=== PATIENT | female | born 1990 | race Caucasian/White ===

== ENCOUNTER 2017-06-17 16:44 | Emergency (ER) | payer MEDICAID, SELFPAY ==
[2017-06-17 16:46] VITALS: BP 136/72; PULSE 110; RESP 18; TEMP 36.4; O2SAT 97; BMI 45.5
[2017-06-17] MEDS: Dicyclomine 20 MG/2 ML Vial IM (17:40)
[2017-06-17] MEDS: Ondansetron 4 MG/2 ML Vial IV ×2 (17:40→20:08)
[2017-06-17 17:52] LABS: Bacteria 0 SEEN /hpf (None Seen); Mucous, Urine 0 SEEN /hpf (<or=2+); Red Blood Cells-Urine 0 SEEN /hpf (0-5)
[2017-06-17 18:01] LABS: Color, Urine Yellow (Yellow); Glucose, Dipstick Normal (Normal); Ketone-Dipstick Negative (Negative); Leukocyte Esterase-Dipstick Negative /ul (Negative); Nitrite-Dipstick Negative (Negative); Occult Blood-Urine 25 /ul (Negative); Protein-Dipstick 15 mg/dl (Negative); Specific Gravity, Urine 1.025 (1.002-1.030); Urine Bilirubin Dipstick Negative (Negative); Urine Clarity Clear (Clear); Urine Urobilinogen Normal (Normal)
[2017-06-17 18:05] LABS: AST(SGOT) 47 U/L (15-37); Alanine Aminotransfer ALT/SGPT 34 U/L (12-78); Albumin, Serum 3.4 g/dL (3.4-5.0); Alkaline Phosphatase 99 U/L (45-117); Anion Gap 9 (5-15); BUN 9 mg/dL (7-18); BUN/Creat Ratio 14.6 RATIO (10-20); Bilirubin, Direct 0.18 mg/dL (0.00-0.30); Calcium,Total 8.3 mg/dL (8.5-10.1); Chloride 106 mmol/L (98-107); Creatinine, Serum 0.62 mg/dL (0.55-1.02); EST Glomerular Filtration Rate 125 mL/min (>60); Est Glom Filt Rate - Afr Amer 152 mL/min (>60); Estimated Creatinine Clearance 134.89 ml/min; Globulin 3.4 g/dL (2.2-4.2); Glucose 159 mg/dL (70-110); Lipase 87 U/L (73-393); Potassium 4.4 mmol/L (3.5-5.1); Protein, Total 6.8 g/dL (6.4-8.2); Sodium Level 137 mmol/L (136-145)
[2017-06-17 18:11] LABS: Squamous Epithelial Cells - UA 0-5 SEEN /hpf (5-10); White Blood Cells 0-5 SEEN /hpf (0-5)
[2017-06-17 18:35] LABS: Pregnancy, Serum, hCG Quali. NEGATIVE Negative (0-9 Nonpreg)
[2017-06-17 18:49] LABS: Absolute Lymphocyte Count 2.03 X10^3/ul (0.83-4.51); Absolute Neutrophil Count 4.7 X10^3/uL (2.0-7.7); Basophil# 0.01 X10^3/uL; Basophil% 0.1 % (0-1); Eosinophil# 0.18 X10^3/uL; Eosinophils% 2.4 % (0-5); Hematocrit 38.1 % (37-47); Hemoglobin 13.2 g/dl (12.0-15.0); Lymphocyte # 2.03 X10^3/ul (4.0); Lymphocyte % 26.8 % (19-41); Mean Corp Hgb Conc 34.6 g/gl (32-36); Mean Corpuscular Hgb 31.9 pg (27.0-32.0); Monocyte# 0.67 X10^3/uL; Monocyte% 8.9 % (0-10); Neutrophil # 4.65 X10^3/uL (2.7-7.7); Neutrophil % 61.4 % (47-70); POSITIVE COUNT NO; POSITIVE DIFFERENTIAL NO; POSITIVE MORPHOLOGY NO; Platelet Count 283 K/mm3 (150-450); RBC Distribution Width CV 13.3 % (11.6-14.6); RBC Distribution Width SD 44.5 fl (35.1-43.9); Red Blood Count 4.14 M/mm3 (4.2-5.4); White Blood Count 7.6 K/mm3 (4.4-11.0)
--- NOTE | 2017-06-17 19:55 | ED.DCSUM_ITS ---
- ER Visit Summary Date of Service: 06/17/17 Chief Complaint: Abdominal pain, nausea, vomiting History of Present Illness: The patient is a 27 F who reports waking at 1 AM this morning with lower abdominal cramping along with nausea, vomiting, and diarrhea. She has not had a fever. Patient denies any recent antibiotic use and denies any ill contacts. Past surgical history significant for cholecystectomy and prior . Physical Examination: Vital signs are unremarkable. Patient's lying in bed no acute distress. She is nontoxic appearing. Head and neck examination is normal. Heart is regular rate and rhythm. Palpable pulses are noted throughout. Lungs are clear with good air movement throughout. Abdomen is soft with tenderness in the epigastric region and across the lower abdomen. Hypoactive bowel sounds are noted. There is no guarding or rebound. Extremity examination is unremarkable with full range of motion. Neurologic examination reveals no focal deficits. Test Results: BC and chemistry studies are significant only for glucose of 159. LFTs revealed total bili 1.50 and AST of 47, otherwise values normal. Urinalysis shows no ketones, no sign of infection. Patency test is negative. Emergency Department Course and Treatment: Patient is given morphine, Zofran, Bentyl, and IV fluids. On repeat evaluation she states her symptoms were significant improved, but are starting to return. Patient be given 1 additional round of medication and then discharged with Bentyl and Zofran. I believe her symptoms are all viral in nature. If her symptoms worsen encourage her to return for repeat evaluation. Treatment Plan: [] Disposition: Discharge Impression: Viral gastroenteritis This note was generated with [employer] dictation software. It may contain incorrect words, spelling, and punctuation that were not noted in review of the chart prior to signing ED Disposition - Plan for ED Patient: Disposition: Home or Assisted Living Chief Complaint: Nausea/Vomiting Instructions: ED Gastroenteritis Viral Prescriptions: Ondansetron [Zofran Odt] 4 mg PO Q8H PRN PRN #10 tablet PRN Reason: Nausea Dicyclomine HCl [Bentyl] 20 mg PO TIDAC #20 capsule Referrals: Katya Sutherland MD [Primary Care Provider] - 1 Week if not improving
[2017-06-17 20:14] VITALS: BP 113/80; PULSE 72; RESP 16; O2SAT 100
== END 2017-06-17 20:15 | disposition home or self-care (01) ==
PROVIDERS: Emergency Provider Emergency Medicine; Family Provider Internal Medicine; PCP Internal Medicine
DX: A08.4 Viral intestinal infection, unspecified (principal); E66.9 Obesity, unspecified; Z87.19 Personal history of other diseases of the digestive system; Z90.49 Acquired absence of other specified parts of digestive tract
CPT/HCPCS: 80048; 80076; 81001; 83690; 84703; 85025; 96361; 96372; 96374; 96375; 96376; 99285; J7040; J7050; A4216; J2405

== ENCOUNTER 2017-07-24 09:29 | Emergency (ER) | payer MEDICAID, SELFPAY ==
[2017-07-24 09:30] VITALS: BP 151/85; PULSE 105; RESP 24; TEMP 36.2; O2SAT 94; BMI 45.7
--- NOTE | 2017-07-24 09:39 | CT_ITS ---
STUDY: CT BRAIN WITHOUT CONTRAST REASON FOR EXAM: Female, 27 years old. Headaches. RADIATION DOSAGE (If Supplied By Facility): CTDIvol = ( 60.81 ) mGy, DLP = ( 1044.28 ) mGycm TECHNIQUE: Transaxial CT imaging of the brain was performed without administration of intravenous contrast material. Individualized dose optimization techniques were used for this CT. COMPARISON: 08/28/11 FINDINGS: Normal soft tissue structures. Normal calvarium. Normal size ventricles and extra-axial spaces for the patient's age. Normal white matter tracts of the cerebral hemispheres. Normal basal ganglia and thalami. Normal brainstem. Normal cerebellum. There is no intracranial hemorrhage. There are no findings of an acute ischemic infarction. Normal visualized paranasal sinuses. CT/Brain/Head without Contrast IMPRESSION: Normal unenhanced CT scan of the brain. Electronically Signed: Antonio Syed MD at 11:29 EST , Service support ,
--- NOTE | 2017-07-24 09:45 | ED.DCSUM_ITS ---
- ER Visit Summary Date of Service: 07/24/17 Chief Complaint: Headache History of Present Illness: The patient is a 27 F reports mild generalized headache yesterday with some nausea. Progressively worsened throughout the day. Today her right face feels swollen and painful. She denies any recent head injury. There is no recent URI symptoms. She does report nausea, vomiting , and light sensitivity. Patient denies history of migraines. Physical Examination: Vital signs are grossly unremarkable. Patient is lying in a darkened room. She is in no acute distress and appears nontoxic. Head and neck examination reveals mild right upper eyelid edema. She has no meningismus. Heart is regular rate and rhythm. Lung sounds are clear. Abdomen is soft nontender. Neuro exam is significant only for right face feeling painful with light palpation. Test Results: CT head is normal. CBC and chemistry studies are significant only for glucose of 333. test is negative. Emergency Department Course and Treatment: Patient was treated Toradol, Compazine, Benadryl, and IV fluids. On repeat evaluation headache is resolved. At this time I am unsure of the etiology of her right eyelid swelling. Eye itself is not injected. She has no sign of cellulitis. There is no sign of sinus infection or dental infection. She will continue to closely monitor the symptoms. Treatment Plan: [] Disposition: Discharge Impression: Migraine, improved This note was generated with [employer] dictation software. It may contain incorrect words, spelling, and punctuation that were not noted in review of the chart prior to signing ED Disposition - Plan for ED Patient: Disposition: Home or Assisted Living Chief Complaint: Headache Instructions: ED Headache Migraine Referrals: Katya Sutherland MD [Primary Care Provider] - 3-5 Days if not improving
[2017-07-24] MEDS: 0.9% Normal Saline 1,000 ML 999 ML IV (10:05)
[2017-07-24] MEDS: Ketorolac 30 MG/ML Syringe IV (10:05)
[2017-07-24] MEDS: DiphenhydrAMINE 50 MG/ML Syringe 25 MG IV (10:05)
[2017-07-24] MEDS: proCHLORPERazine 10 MG/2 ML Vial IV (10:05)
[2017-07-24 10:31] LABS: Absolute Neutrophil Count 3.2 X10^3/uL (2.0-7.7); Basophil# 0.02 X10^3/uL; Basophil% 0.3 % (0-1); Eosinophil# 0.08 X10^3/uL; Eosinophils% 1.3 % (0-5); Hemoglobin 13.8 g/dl (12.0-15.0); Lymphocyte % 39.4 % (19-41); Mean Corp Hgb Conc 35.4 g/gl (32-36); Mean Corpuscular Volume 90.5 fL (81-99); Mean Platelet Vol. 9.3 fl (6.2-12.0); Monocyte# 0.55 X10^3/uL; Monocyte% 8.7 % (0-10); Neutrophil # 3.18 X10^3/uL (2.7-7.7); POSITIVE COUNT NO; POSITIVE DIFFERENTIAL NO; POSITIVE MORPHOLOGY NO; Platelet Count 251 K/mm3 (150-450); RBC Distribution Width CV 13.2 % (11.6-14.6); Red Blood Count 4.31 M/mm3 (4.2-5.4); White Blood Count 6.4 K/mm3 (4.4-11.0)
[2017-07-24 10:38] LABS: Anion Gap 11 (5-15); BUN 10 mg/dL (7-18); BUN/Creat Ratio 16.4 RATIO (10-20); Calcium,Total 8.9 mg/dL (8.5-10.1); Chloride 101 mmol/L (98-107); Creatinine, Serum 0.61 mg/dL (0.55-1.02); EST Glomerular Filtration Rate 127 mL/min (>60); Est Glom Filt Rate - Afr Amer 154 mL/min (>60); Glucose 333 mg/dL (74-106); Potassium 3.8 mmol/L (3.5-5.1); Sodium Level 137 mmol/L (136-145)
[2017-07-24 10:45] LABS: Pregnancy, Serum, hCG Quali. NEGATIVE Negative (0-9 Nonpreg)
--- NOTE | 2017-07-24 12:13 | ED.DEP ---
ED Disposition - Plan for ED Patient: Disposition: Home or Assisted Living Chief Complaint: Headache Instructions: ED Headache Migraine Referrals: Katya Sutherland MD [Primary Care Provider] - 3-5 Days if not improving
[2017-07-24 12:32] VITALS: BP 142/70; PULSE 80; RESP 14; O2SAT 99
== END 2017-07-24 12:34 | disposition home or self-care (01) ==
PROVIDERS: Emergency Provider Emergency Medicine; Family Provider Internal Medicine; PCP Internal Medicine
DX: G43.909 Migraine, unspecified, not intractable, without status migrainosus (principal); H02.841 Edema of right upper eyelid; E66.9 Obesity, unspecified; E11.9 Type 2 diabetes mellitus without complications; Z90.49 Acquired absence of other specified parts of digestive tract; Z79.84 Long term (current) use of oral hypoglycemic drugs
CPT/HCPCS: 36415; 70450; 80048; 84703; 85025; 96361; 96374; 96375; 99283; J7030; A4216

== ENCOUNTER 2017-08-01 13:59 | Emergency (ER) | payer MEDICAID, SELFPAY ==
[2017-08-01 14:00] VITALS: BP 145/80; PULSE 127; RESP 18; TEMP 36.7; O2SAT 97; BMI 46.6
[2017-08-01] MEDS: 0.9% Normal Saline 1,000 ML 1000 ML IV (15:10)
--- NOTE | 2017-08-01 15:14 | RAD_ITS ---
STUDY: X-RAY CHEST REASON FOR EXAM: Female, 27 years old. Cough. TECHNIQUE: PA and lateral views of the chest. COMPARISON: Chest, June 26, 2016. FINDINGS: The lungs are clear and expanded. There is no demonstrated pleural abnormality. Normal size heart. Normal mediastinum and sarath. Normal visualized pulmonary arteries. Normal visualized aortic arch and descending thoracic aorta. Normal visualized thoracic spine. Normal visualized ribs, clavicles, and shoulders. There is no demonstrated abnormality of the visualized soft tissue structures of the upper abdomen. RAD/Chest PA and Lateral IMPRESSION: No acute cardiopulmonary disease or interval change. Electronically Signed: Claude Gómez DO at 15:46 EST Tel [phone], Service support ,
[2017-08-01 15:24] LABS: Absolute Lymphocyte Count 1.56 X10^3/ul (0.83-4.51); Absolute Neutrophil Count 5.4 X10^3/uL (2.0-7.7); Basophil# 0.01 X10^3/uL; Basophil% 0.1 % (0-1); Eosinophil# 0.09 X10^3/uL; Eosinophils% 1.1 % (0-5); Hematocrit 41.8 % (37-47); Hemoglobin 14.8 g/dl (12.0-15.0); Lymphocyte # 1.56 X10^3/ul (4.0); Lymphocyte % 19.9 % (19-41); Mean Corp Hgb Conc 35.4 g/gl (32-36); Mean Corpuscular Hgb 31.8 pg (27.0-32.0); Mean Corpuscular Volume 89.7 fL (81-99); Mean Platelet Vol. 9.6 fl (6.2-12.0); Monocyte# 0.71 X10^3/uL; Monocyte% 9.1 % (0-10); Neutrophil # 5.44 X10^3/uL (2.7-7.7); Neutrophil % 69.4 % (47-70); POSITIVE COUNT NO; POSITIVE DIFFERENTIAL NO; POSITIVE MORPHOLOGY NO; Platelet Count 236 K/mm3 (150-450); RBC Distribution Width CV 13.5 % (11.6-14.6); RBC Distribution Width SD 43.4 fl (35.1-43.9); Red Blood Count 4.66 M/mm3 (4.2-5.4); White Blood Count 7.8 K/mm3 (4.4-11.0)
[2017-08-01 15:43] LABS: AST(SGOT) 13 U/L (15-37); Alanine Aminotransfer ALT/SGPT 22 U/L (13-56); Albumin, Serum 3.6 g/dL (3.2-5.0); Alkaline Phosphatase 102 U/L (45-117); Anion Gap 12 (5-15); BUN 10 mg/dL (7-18); BUN/Creat Ratio 19.8 RATIO (10-20); Calcium,Total 8.4 mg/dL (8.5-10.1); Chloride 103 mmol/L (98-107); EST Glomerular Filtration Rate 157 mL/min (>60); Est Glom Filt Rate - Afr Amer 191 mL/min (>60); Estimated Creatinine Clearance 167.26 ml/min; Globulin 3.5 g/dL (2.2-4.2); Glucose 235 mg/dL (74-106); Potassium 3.7 mmol/L (3.5-5.1); Protein, Total 7.1 g/dL (6.4-8.2); Sodium Level 136 mmol/L (136-145)
[2017-08-01 16:28] LABS: Pregnancy, Serum, hCG Quali. NEGATIVE Negative (0-9 Nonpreg)
[2017-08-01 16:36] VITALS: BP 132/74; PULSE 90; RESP 14; O2SAT 98
--- NOTE | 2017-08-01 16:54 | ED.VISSUMM ---
- ER Visit Summary Date of Service: 08/01/17 Chief Complaint: []Nausea and vomiting History of Present Illness: The patient is a 27 F [] complaining of nausea and vomiting beginning 2 days ago. Reports mild diffuse abdominal discomfort. Eyes hematemesis or blood in stool. Reports she is a diabetic with uncontrolled blood sugars. She reports she takes metformin. She reports her blood sugars been running in the 400s. Denies weight loss or weight gain. Denies increased thirst or urinary frequency. Physical Examination: [] Afebrile, vital signs stable. Morbidly obese female no acute distress. Cardiovascular exam is regular rate and rhythm. Lungs are clear to auscultation. Abdomen is soft and nontender. Test Results: [] CBC, BMP are normal with exception of a glucose of 235. LFTs normal. Chest x-ray negative. Emergency Department Course and Treatment: [] Given intravenous fluids and Phenergan. On serial exam she had improvement of symptoms. She was given a prescription for Phenergan. Treatment Plan: [] Discharge, stable. Follow-up with primary care physician. Disposition: [] Discharge, stable. Impression: [] Nausea and vomiting History of diabetes This note was generated with [employer] dictation software. It may contain incorrect words, spelling, and punctuation that were not noted in review of the chart prior to signing ED Disposition - Plan for ED Patient: Chief Complaint: Nausea/Vomiting Referrals: Katya Sutherland MD [Primary Care Provider] -
--- NOTE | 2017-08-01 17:02 | ED.DCSUM_ITS ---
- ER Visit Summary Date of Service: 08/01/17 Chief Complaint: []Nausea and vomiting History of Present Illness: The patient is a 27 F [] complaining of nausea and vomiting beginning 2 days ago. Reports mild diffuse abdominal discomfort. Eyes hematemesis or blood in stool. Reports she is a diabetic with uncontrolled blood sugars. She reports she takes metformin. She reports her blood sugars been running in the 400s. Denies weight loss or weight gain. Denies increased thirst or urinary frequency. Physical Examination: [] Afebrile, vital signs stable. Morbidly obese female no acute distress. Cardiovascular exam is regular rate and rhythm. Lungs are clear to auscultation. Abdomen is soft and nontender. Test Results: [] CBC, BMP are normal with exception of a glucose of 235. LFTs normal. Chest x- ray negative. Emergency Department Course and Treatment: [] Given intravenous fluids and Phenergan. On serial exam she had improvement of symptoms. She was given a prescription for Phenergan. Treatment Plan: [] Discharge, stable. Follow-up with primary care physician. Disposition: [] Discharge, stable. Impression: [] Nausea and vomiting History of diabetes This note was generated with [employer] dictation software. It may contain incorrect words, spelling, and punctuation that were not noted in review of the chart prior to signing ED Disposition - Plan for ED Patient: Chief Complaint: Nausea/Vomiting Referrals: Katya Sutherland MD [Primary Care Provider] -
--- NOTE | 2017-08-01 17:02 | ED.DEP ---
ED Disposition - Plan for ED Patient: Disposition: Home or Assisted Living Chief Complaint: Nausea/Vomiting Instructions: ED Nausea Vomiting Prescriptions: ProMETHAzine [Phenergan] 25 mg PO Q4H PRN PRN #20 tab PRN Reason: Nausea Referrals: Katya Sutherland MD [Primary Care Provider] -
[2017-08-01 17:06] VITALS: BP 128/80; PULSE 95; RESP 14; O2SAT 98
== END 2017-08-01 17:08 | disposition home or self-care (01) ==
PROVIDERS: Emergency Provider Emergency Medicine; Family Provider Internal Medicine; PCP Internal Medicine
DX: R11.2 Nausea with vomiting, unspecified (principal); E11.9 Type 2 diabetes mellitus without complications; R10.9 Unspecified abdominal pain; E66.01 Morbid (severe) obesity due to excess calories; Z90.49 Acquired absence of other specified parts of digestive tract; Z79.4 Long term (current) use of insulin; Z79.84 Long term (current) use of oral hypoglycemic drugs
CPT/HCPCS: 71046; 80053; 82009; 84703; 85025; 96361; 96374; 99283; J7030; A4216

== ENCOUNTER 2017-09-08 08:54 | Emergency (ER) | payer MEDICAID, SELFPAY ==
[2017-09-08 08:55] VITALS: BP 151/72; PULSE 118; RESP 16; TEMP 37; O2SAT 97; BMI 45.8
[2017-09-08 09:27] LABS: Bacteria 0 SEEN /hpf (None Seen); Mucous, Urine 0 SEEN /hpf (<or=2+); Red Blood Cells-Urine 0 SEEN /hpf (0-5)
[2017-09-08] MEDS: Morphine 4 MG/ML Syringe IV (09:27)
[2017-09-08] MEDS: Ondansetron 4 MG/2 ML Vial IV (09:27)
[2017-09-08 09:29] LABS: Color, Urine Yellow (Yellow); Glucose, Dipstick Normal (Normal); Leukocyte Esterase-Dipstick 25 /ul (Negative); Nitrite-Dipstick Negative (Negative); Occult Blood-Urine 25 /ul (Negative); Protein-Dipstick 15 mg/dl (Negative); Specific Gravity, Urine 1.025 (1.002-1.030); Urine Bilirubin Dipstick Negative (Negative); Urine Clarity Clear (Clear); Urine Urobilinogen Normal (Normal)
[2017-09-08] MEDS: 0.9% Normal Saline 1,000 ML 125 ML IV (09:31)
[2017-09-08 09:35] LABS: Ketone-Dipstick 150 mg/dl (Negative)
[2017-09-08 09:37] LABS: Squamous Epithelial Cells - UA 0-5 SEEN /hpf (5-10); White Blood Cells 0-5 SEEN /hpf (0-5)
[2017-09-08 09:56] LABS: Absolute Lymphocyte Count 3.01 X10^3/ul (0.83-4.51); Absolute Neutrophil Count 6.4 X10^3/uL (2.0-7.7); Basophil# 0.01 X10^3/uL; Basophil% 0.1 % (0-1); Eosinophil# 0.17 X10^3/uL; Eosinophils% 1.6 % (0-5); Hematocrit 39.8 % (37-47); Hemoglobin 13.8 g/dl (12.0-15.0); Lymphocyte # 3.01 X10^3/ul (4.0); Lymphocyte % 28.9 % (19-41); Mean Corp Hgb Conc 34.7 g/gl (32-36); Mean Corpuscular Hgb 31.7 pg (27.0-32.0); Mean Corpuscular Volume 91.3 fL (81-99); Mean Platelet Vol. 9.1 fl (6.2-12.0); Monocyte# 0.79 X10^3/uL; Monocyte% 7.6 % (0-10); Neutrophil # 6.37 X10^3/uL (2.7-7.7); Neutrophil % 61.2 % (47-70); Platelet Count 271 K/mm3 (150-450); RBC Distribution Width CV 13.6 % (11.6-14.6); RBC Distribution Width SD 44.5 fl (35.1-43.9); Red Blood Count 4.36 M/mm3 (4.2-5.4); White Blood Count 10.4 K/mm3 (4.4-11.0)
[2017-09-08 09:57] LABS: POSITIVE COUNT NO; POSITIVE DIFFERENTIAL NO; POSITIVE MORPHOLOGY NO
[2017-09-08 10:08] LABS: AST(SGOT) 19 U/L (15-37); Alanine Aminotransfer ALT/SGPT 30 U/L (13-56); Albumin, Serum 3.5 g/dL (3.2-5.0); Alkaline Phosphatase 76 U/L (45-117); Anion Gap 14 (5-15); BUN 5 mg/dL (7-18); Calcium,Total 7.8 mg/dL (8.5-10.1); Chloride 108 mmol/L (98-107); Creatinine, Serum 0.63 mg/dL (0.55-1.02); EST Glomerular Filtration Rate 122 mL/min (>60); Est Glom Filt Rate - Afr Amer 148 mL/min (>60); Estimated Creatinine Clearance 132.75 ml/min; Globulin 3.5 g/dL (2.2-4.2); Glucose 150 mg/dL (74-106); Lipase 103 U/L (73-393); Potassium 3.5 mmol/L (3.5-5.1); Sodium Level 140 mmol/L (136-145)
--- NOTE | 2017-09-08 10:14 | US_ITS ---
STUDY: FIRST TRIMESTER OBSTETRICAL ULTRASOUND REASON FOR EXAM: Female, 27 years old. Left flank pain LMP: August 15, 2017 TECHNIQUE: Transvaginal PRIOR ULTRASOUND: None. FINDINGS: There is visualization of a single gestational sac in a normal intrauterine position. The mean sac diameter (MSD) measures 2.1 cm, indicating an estimated gestational age (EGA) of 7 weeks, 1 days. The gestational sac shape is within normal limits. There is a visualized yolk sac. The yolk sac measures 0.6. The placenta is non-visualized. There is no demonstrated embryo ( pole). The estimated gestation age (EGA) by LMP is 4 weeks, 6 days. The estimated date of delivery (DELFINA) by LMP is May 12, 2018. The estimated gestation age (EGA) by US is 7 weeks, 1 days. The estimated date of delivery (DELFINA) by US is April 26, 2018. The uterus measures 8.9 x 6.8 x 4.4 cm. There is no demonstrated uterine fibroid. The cervix is closed. The right ovary is not visualized. The left ovary measures 3.8 x 3.1 x 2.1 cm. There is 1.6 cm cyst. There is no visualized left adnexal mass or complex lesion. There is no fluid in the cul de sac. US/Transvaginal w/Preg US IMPRESSION: Intrauterine gestational sac at 7 weeks 1 day with yolk sac. There is no pole nor cardiac activity. Electronically Signed: Kip Felipe MD at 12:49 EDT , Service support ,
[2017-09-08 10:23] LABS: Pregnancy, Serum, hCG Quali. POSITIVE Negative (0-9 Nonpreg)
[2017-09-08 11:05] VITALS: BP 131/76; PULSE 98; RESP 16; O2SAT 99
--- NOTE | 2017-09-08 13:01 | ED.VISSUMM ---
- ER Visit Summary Date of Service: 09/08/17 Chief Complaint: [Abdominal pain] History of Present Illness: The patient is a 27 F [presents the emergency department with abdominal pain that started 3 days ago. Patient describes the pain as upper left abdomen going into her back. Patient's had nausea and vomiting ?4 today. Patient denies any fever. Patient's last menstrual period was August 08. Patient denies any diarrhea. Patient denies sick contacts. Medical history includes diabetes. Patient has had cholecystectomy.] Physical Examination: [HEENT-PERRLA, EOMI. Cranial nerves II through XII grossly intact. TMs clear. Mucous membranes moist. No adenopathy. Cardiovascular-regular rate and rhythm without murmur or ectopy Lungs-clear to auscultation, chest wall stable without crepitus or subcu emphysema Abdomen-normoactive bowel sounds, soft patient has some mild tenderness over left upper quadrant. There is no rebound, rigidity, or perineal signs. No CVA tenderness.. Extremities-intact ?4, normal range of motion, normal pulses, atraumatic] Test Results: CBC with differential obtained showed a white count of 10.4, hemoglobin 13.8, hematocrit 40, platelets 271. Chemistries unremarkable. LFTs unremarkable. Urinalysis was normal. HCG serum was positive. Patient had a pelvic ultrasound at that showed intrauterine gestational sac at 7 weeks 1 day with yolk sac. There is no pole nor cardiac activity. [] Emergency Department Course and Treatment: Arrival patient was medicated with morphine as well as Phenergan. I discussed case with Dr. Collado whom the patient has seen in the past for her pregnancies. Dr. Collado asked that patient follow-up with her office within the next 3-5 days. [] Treatment Plan: [Patient will follow-up for repeat quant and repeat ultrasound] Disposition: [Discharged to home in stable condition. Patient advised to return if worsening pain, persistent vomiting, fever, or condition should worsen in any way.] Impression: [Abdominal pain-etiology uncertain new diagnosis] This note was generated with [employer] software. It may contain incorrect words, spelling, and punctuation that were not noted in review of the chart prior to signing ED Disposition - Plan for ED Patient: Chief Complaint: Abd Pain Referrals: Katya Sutherland MD [Primary Care Provider] -
--- NOTE | 2017-09-08 13:04 | ED.DEP ---
ED Disposition - Plan for ED Patient: Chief Complaint: Abd Pain Instructions: ED Abdominal Pain Unkn Cause, ED Care Prescriptions: proMETHazine tablet [Phenergan] 25 mg PO Q6H PRN PRN #10 tab PRN Reason: Nausea Referrals: Katya Sutherland MD [Primary Care Provider] - Zuleyma Collado MD [STAFF PHYSICIAN] - 3-5 Days
[2017-09-08 13:25] LABS: hCG Titer Quant., Serum 1168 mIU/mL (<9 non-preg)
== END 2017-09-08 13:47 | disposition home or self-care (01) ==
PROVIDERS: Emergency Provider Emergency Medicine; Family Provider Internal Medicine; PCP Internal Medicine
DX: R10.12 Left upper quadrant pain (principal); Z33.1 Pregnant state, incidental; R11.2 Nausea with vomiting, unspecified; E11.9 Type 2 diabetes mellitus without complications; Z90.49 Acquired absence of other specified parts of digestive tract; Z79.84 Long term (current) use of oral hypoglycemic drugs
CPT/HCPCS: 36415; 76817; 80053; 81001; 83690; 84702; 84703; 85025; 96361; 96374; 96375; 99284; A4216; J2405

== ENCOUNTER 2017-09-13 09:43 | Day surgery (SDC) | payer MEDICAID, SELFPAY ==
[2017-09-13] VITALS (7 sets, daily range): BP systolic 111–131; BP diastolic 64–74; PULSE 95–138; RESP 16–32; TEMP 37.1–37.2; O2SAT 93–99; BMI 46.0
--- NOTE | 2017-09-13 | POC_PTH ---
PATIENT: SYLVESTER YEN LOC: [facility] [place] U#:[id number] AGE/SX: 27/F ROOM: RE09/13/[address]: Dr. Zuleyma Collado MD : 1990 BED: DIS: 09/13/2017 SPEC #: [id number] RECD: 09/13/17 14:30 STATUS: YAZAN REKarlo #: [id number] RICH: 09/13/17 00:[address]: Zuleyma Collado DEPT: SURGICAL PATHOLOGY RECD BY: Tate Licea ENTERED: 09/13/17 14:30 SP TYPE: PROD CONC OTHR DR: Dr. Katya Sutherland MD Tissues: Product of conception, NOS Procedures: Surgery Specimen Level IV HEADER OPERATION: Dilation and curettage, suction PRE-OP DIAGNOSIS: Missed TISSUE SUBMITTED: Products of conception MICROSCOPIC DIAGNOSIS Endometrium, curettage: Chorionic villi, decidualized stroma and trophoblastic cells consistent with products of conception. AM:rg 4/16/18 MICROSCOPIC DESCRIPTION Slides are reviewed. GROSS DESCRIPTION Received in fixative is one container labeled with the patient's name and designated products of conception. The specimen consists of multiple pieces of hdz-pink soft tissue that in aggregate measure 3.5 x 4 x 1 cm. tissue is not identified. The entire specimen is submitted in three cassettes. / SJ:malika 09/13/17 TC:5 CPT: 81138
[2017-09-13 10:25] LABS: Bedside Glucose 151 mg/dL (70-110)
[2017-09-13 12:22] LABS: Hematocrit 36.8 % (37-47); Hemoglobin 12.9 g/dl (12.0-15.0); Mean Corp Hgb Conc 35.1 g/gl (32-36); Mean Corpuscular Hgb 32.4 pg (27.0-32.0); Mean Corpuscular Volume 92.5 fL (81-99); Mean Platelet Vol. 9.5 fl (6.2-12.0); Platelet Count 252 K/mm3 (150-450); RBC Distribution Width CV 13.7 % (11.6-14.6); RBC Distribution Width SD 45.1 fl (35.1-43.9); Red Blood Count 3.98 M/mm3 (4.2-5.4); White Blood Count 9.7 K/mm3 (4.4-11.0)
[2017-09-13 12:24] LABS: Scan Indicated on CBC? Y/N NO
[2017-09-13] MEDS: Doxycycline 100 MG CAPSULE PO (12:25)
--- NOTE | 2017-09-13 12:43 | PCM.HP.OB ---
- Problem List (1) Missed ab Status: Acute History Date of Admission: 09/13/17 History of this : 27 yo @ 8 weeks with a missed ab. no herat tones seen and severe almost complete cubchorionic hemorrhage Pertinent Past Medical History: Past Medical History (Last Reviewed 09/12/17 @ 11:41 by Myla Prather) Diabetes mellitus (Chronic) Past Surgical History (Last Updated 09/12/17 @ 11:42 by Myla Prather) S/P (Resolved) S/P cholecystectomy (Resolved) s/p right hip surgery (Resolved) Allergies aspirin Allergy (Verified 09/12/17 14:54) Rash Penicillins Allergy (Verified 09/12/17 14:54) Rash PAPER TAPE Allergy (Uncoded 09/12/17 14:54) Other RED WELTS Alcohol: None Drug Use: none Review of Systems Constitutional: Denies: Chills, Fever, Weight Change HEENT: Denies: Head Aches, Sinus Congestion, Sinus Drainage Cardiovascular: Denies: Chest Pain, Palpitations Respiratory: Denies: Cough, Shortness of breath at rest, Sputum production Gastrointestinal: Denies: Abdominal Pain, Nausea, Vomiting Genitourinary: Denies: Dysuria Musculoskeletal: Denies: Joint Pain, Joint Tenderness Skin: Denies: Rash, Wounds Neurological: Denies: Numbness, Tingling, Focal weakness Psychiatric: Denies: Anxiety, Depression, Homicidal Ideations, Suicidal Ideations Hematologic/ Lymphatic: Denies: Easy Bruising, Easy Bleeding Physical Exam Vitals: Vital Signs Temp Pulse Resp BP Pulse Ox 98.9 F 97 18 111/71 99 09/13/17 10:05 09/13/17 10:05 09/13/17 10:05 09/13/17 10:05 09/13/17 10:05 General: Alert, Oriented x3, No apparent distress Cardiovascular: Regular rate, Regular Rhythm Lungs: Clear to auscultation Abdomen: Bowel Sounds Present Assessment/Plan Active and Suspected Problems (Last Reviewed 09/12/17 @ 11:41 by Myla rPather) Missed ab (Acute) plan suction d and c for missed
--- NOTE | 2017-09-13 14:00 | PCM.DC.D&C ---
Discharge Diet: No Restrictions Discharge Activity: Return to Normal Activity, May Shower, May Take a Tub Bath Allergies/Adverse Reactions: Allergies aspirin Allergy (Verified 09/12/17 14:54) Rash Penicillins Allergy (Verified 09/12/17 14:54) Rash PAPER TAPE Allergy (Uncoded 09/12/17 14:54) Other RED WELTS Medications to take at Discharge Metformin HCl [Glucophage] 1,000 mg PO BIDCM #60 tab 07/11/15 Liraglutide [Victoza 2-Brad] 1.2 unit SC DAILY 09/08/17 insulin glargine (U-100) 100 unit/mL (3 mL) subcutaneous pen 38 unit SC QHS ml 09/12/17 Primary Care Physician: Katya Sutherland MD [Primary Care Provider] - Please Follow Up With: Zuleyma Collado MD - [phone]
[2017-09-13] MEDS: HYDROcodone Bitartrate/Apap 5/325 Tablet PO (15:38)
--- NOTE | 2017-09-14 00:31 | PCM.OPRPT ---
Problem List (1) Missed ab Status: Acute Report of Operation Date of Procedure: 09/13/17 Pre-Operative Diagnosis: missed ab Post-Operative Diagnosis: same Surgery/Procedure Performed:: suction d and c Type of Anesthesia:: Local MAC Special Medications: doxy Specimen's removed: poc Drains: none Estimated Blood Loss (mL): 50 Fluids Replaced: crystalloid Description of Procedure: Patient was evaluated preoperatively and found to have a missed at 7w4d with no heart tones seen on serial us. Patient was counseled and offered medical management versus surgical and patient chose suction D&C. Patient received IV anesthesia was prepped and draped in normal sterile fashion in the dorsal lithotomy position. Cervix was grasped with ring forceps and previously dilated to allow passage of a 8 mm suction curette. Uterus sounded 9 cm. Multiple passes were made with the suction curette to remove products of conception and then sharp curettage was formed to confirm all removal of packs of conception. All instruments were removed from the vagina and patient was awoken and taken recovery in stable condition. Grafts/Implants Used: none - Complications none
== END 2017-09-13 16:02 | disposition home or self-care (01) ==
LOC: SDC 09:45 → AC 09:45
PROVIDERS: Family Provider Internal Medicine; PCP Internal Medicine; Visit Provider Obstetrics & Gynecology
PROC: (CPT 59820; principal; 2017-09-13 12:00)
DX: O02.1 Missed abortion (principal); E11.9 Type 2 diabetes mellitus without complications; Z79.4 Long term (current) use of insulin; K21.9 Gastro-esophageal reflux disease without esophagitis
CPT/HCPCS: 59820; 82962; 85027; 86850; 86900; 88305; J7120; J2405

== ENCOUNTER → 2017-09-19 08:05 | Outpatient (CLI) | payer MEDICAID, SELFPAY ==
--- NOTE | 2017-09-19 08:07 | US_ITS ---
STUDY: ULTRASOUND OF THE FEMALE PELVIS - COMPLETE REASON FOR EXAM: Female, 27 years old. Pelvic pain. Recent dilatation and curettage. LMP: August 05, 2017 TECHNIQUE: Transabdominal and Transvaginal TECHNICAL QUALITY: Adequate. COMPARISON: Comparison is made with prior examination dated September 08, 2017. FINDINGS: The uterus is anteverted and is in a midline position. The uterus measures 8.2 cm x 5.2 cm x 3.8 cm. Normal uterine cervix. The endometrium is thickened and measures 11.9 mm in thickness, and is heterogeneous (striated). Small amount of fluid is seen within the endometrium. Residual products of conceptions should be ruled out. There is no demonstrated endometrial mass. There is no demonstrated myometrial mass. I.U.D. - The patient does not have an I.U.D. The patient is status post right nephrectomy. The left ovary is visualized. The left ovary measures 4.3 cm x 3.0 sorry by 2.6 cm. There is no left ovarian cyst or ovarian mass. There is no visualized left adnexal mass or complex lesion. There is normal arterial and normal venous vascularity. There is no fluid in the cul-de-sac. Polycystic ovary disease: No. US/Transvaginal Non- IMPRESSION: Thickened heterogeneous appearance of the endometrium. Retained products of conception should be ruled out. Electronically Signed: Jamison Panchal MD at 10:42 EDT Tel [phone], Service support ,
--- NOTE | 2017-09-19 08:07 | US_ITS ---
STUDY: ULTRASOUND OF THE FEMALE PELVIS - COMPLETE REASON FOR EXAM: Female, 27 years old. Pelvic pain. Recent dilatation and curettage. LMP: August 05, 2017 TECHNIQUE: Transabdominal and Transvaginal TECHNICAL QUALITY: Adequate. COMPARISON: Comparison is made with prior examination dated September 08, 2017. FINDINGS: The uterus is anteverted and is in a midline position. The uterus measures 8.2 cm x 5.2 cm x 3.8 cm. Normal uterine cervix. The endometrium is thickened and measures 11.9 mm in thickness, and is heterogeneous (striated). Small amount of fluid is seen within the endometrium. Residual products of conceptions should be ruled out. There is no demonstrated endometrial mass. There is no demonstrated myometrial mass. I.U.D. - The patient does not have an I.U.D. The patient is status post right nephrectomy. The left ovary is visualized. The left ovary measures 4.3 cm x 3.0 sorry by 2.6 cm. There is no left ovarian cyst or ovarian mass. There is no visualized left adnexal mass or complex lesion. There is normal arterial and normal venous vascularity. There is no fluid in the cul-de-sac. Polycystic ovary disease: No. US/Pelvic (Non ) IMPRESSION: Thickened heterogeneous appearance of the endometrium. Retained products of conception should be ruled out. Electronically Signed: Jamison Panchal MD at 10:42 EDT Tel [phone], Service support ,
== END ==
PROVIDERS: Family Provider Internal Medicine; PCP Internal Medicine; Visit Provider Obstetrics & Gynecology
DX: R10.2 Pelvic and perineal pain (principal)
CPT/HCPCS: 76830; 76856; 93976

== ENCOUNTER 2017-09-19 12:26 | Day surgery (SDC) | payer MEDICAID, SELFPAY ==
[2017-09-19] VITALS (7 sets, daily range): BP systolic 102–137; BP diastolic 78–92; PULSE 85–115; RESP 16; TEMP 36.3–36.7; O2SAT 96–100; BMI 45.9
--- NOTE | 2017-09-19 | POC_PTH ---
PATIENT: SYLVESTER YEN LOC: [facility] [place] U#:[id number] AGE/SX: 27/F ROOM: RE09/19/[address]: Dr. Zuleyma Collado MD : 1990 BED: DIS: 09/19/2017 SPEC #: [id number] RECD: 09/19/17 12:42 STATUS: YAZAN REQ #: [id number] RICH: 09/19/17 00:[address]: Zuleyma Collado DEPT: SURGICAL PATHOLOGY RECD BY: Tate Licea ENTERED: 09/20/17 12:43 SP TYPE: PROD CONC OTHR DR: Dr. Katya Sutherland MD Tissues: Product of conception, NOS Procedures: Surgery Specimen Level IV HEADER OPERATION: Dilation and curettage, suction PRE-OP DIAGNOSIS: Retained products of conception TISSUE SUBMITTED: Products of conception MICROSCOPIC DIAGNOSIS Endometrium, curettage: Secretory endometrium. Decidualized stroma with associated blood clots. AM:malika 09/23/17 COMMENT Chorionic villi are not present. Clinical correlation is suggested. MICROSCOPIC DESCRIPTION Slides are reviewed. GROSS DESCRIPTION Received in fixative is one container labeled with the patient's name and designated products of conception. The specimen consists of multiple irregular fragments of pink-hdz soft tissue that in aggregate measure 5 x 3 x 0.2 cm. parts are not grossly recognized. The specimen is totally submitted in two cassettes. / AM:malika 09/20/17 TC:5 CPT: [id number]
[2017-09-19 13:50] LABS: Bedside Glucose 102 mg/dL (70-110)
[2017-09-19] MEDS: Doxycycline 100 MG CAPSULE PO (16:55)
--- NOTE | 2017-09-19 16:56 | PCM.HPOB.BLA ---
- Problem List (1) Missed ab Status: Acute History and Physical Date of Admission: 09/19/17 36 Viewing date range: 03/15/17 - 09/19/17 No data to display Future (all) No data to display Past (last three) Provider Location Date Zuleyma Collado [facility] 09/19/17 Zuleyma Collado Outpatient Ul[facility]ound 09/19/17 Zuleyma Collado [facility] 09/18/17 09/19/17 09/19/17 09/18/17 09/15/17 09/14/17 09/13/17 09/13/17 09/13/17 09/13/17 09/13/17 09/13/17 09/13/17 SUCTION D&C, SURGERY 09/12/17 09/12/17 09/12/17 09/08/17 09/08/17 09/08/17 09/08/17 08/01/17 07/24/17 09/13/17 06/17/17 09/13/17 09/13/17 09/13/17 09/13/17 09/13/17 09/13/17 09/13/17 09/13/17 09/13/17 09/13/17 09/08/17 09/08/17 09/08/17 09/08/17 09/08/17 09/08/17 09/08/17 09/08/17 09/08/17 06/17/17 06/17/17 06/17/17 06/17/17 06/17/17 06/17/17 06/17/17 06/17/17 06/17/17 06/17/17 06/17/17 06/17/17 06/17/17 06/17/17 06/17/17 06/17/17 06/17/17 06/17/17 06/17/17 06/17/17 06/17/17 06/17/17 06/17/17 06/17/17 06/17/17 06/17/17 06/17/17 06/17/17 06/17/17 06/17/17 06/17/17 06/17/17 06/17/17 06/17/17 06/17/17 06/17/17 06/17/17 06/17/1718 01/15/18 01/15/18 01/15/18 01/15/18 01/15/18 01/15/18 04/08/18 04/08/18 04/08/18 04/08/18 04/08/18 04/08/18 04/08/18 04/08/18 04/08/18 04/08/18 04/08/18 04/08/18 04/08/18 04/08/18 01/15/18 04/08/18 04/08/18 04/08/18 11/26/17 04/08/18 04/08/18 04/08/18 04/08/18 04/08/18 04/08/18 04/08/18 04/08/18 04/08/18 04/08/18 04/08/18 04/08/18 04/08/18 04/08/18 04/08/18 04/08/18 04/08/18 04/08/18 04/08/18 04/08/18 04/08/18 04/08/18 04/08/18 04/08/18 03/01/18 04/19/18 04/13/18 04/13/18 Med Rec Num [id number] Address [address] [place] [address] Preferred Portal Not Enrolled Person to Notify Name Phone Relation to Patient  - Active Cancelled 09/08/17 Discontinued 09/19/17 Cancelled 09/08/17 Discontinued 09/12/17 Rash Rash Other Onset Medical History Status Onset Diabetes mellitus Chronic Surgical History S/P dilation and curettage Acute ~09/13/17 *s/p right hip surgery Resolved S/P Resolved S/P cholecystectomy Resolved Family History Diabetes Mother CVA (cerebral vascular accident) Mother Diabetes Father Diabetes Grandmother Diabetes Grandfather Social History what type of physical activity do you participate in walking bicycling frequency 1-2 times per week Smoking Status Never smoker alcohol intake never substance use type does not use seatbelt use always do you feel safe at home Yes additional social history Engaged (getting next month)- [employer] Patient is stay at home mom caffeine Yes Problems Postoperative abdominal pain Plan recommend pelvic us and prophylactic antibiotics for patient due to postoperative pain Orders Orders: Pelvic (Non ) Today R10.2 Transvaginal Non- Today R10.2 Medications New: doxycycline hyclate 100 mg PO BID No data to display 09/19/17 09/13/17 09/13/17 09/13/17 09/13/17 06/17/17 06/17/17 03/15/17 Sylvester Zimmerman 27 F 1990 Search Chart Rash Rash Other Onset Cancelled 09/08/17 Discontinued 09/19/17 Cancelled 09/08/17 Discontinued 09/12/17 No data to display Medical History Status Onset Diabetes mellitus Chronic Surgical History S/P dilation and curettage Acute ~09/13/17 *s/p right hip surgery Resolved S/P Resolved S/P cholecystectomy Resolved Family History Diabetes Mother CVA (cerebral vascular accident) Mother Diabetes Father Diabetes Grandmother Diabetes Grandfather Social History what type of physical activity do you participate in walking bicycling frequency 1-2 times per week Smoking Status Never smoker alcohol intake never substance use type does not use seatbelt use always do you feel safe at home Yes additional social history Engaged (getting next month)- [email or web address] Patient is stay at home mom caffeine Yes Problems Postoperative abdominal pain Plan recommend pelvic us and prophylactic antibiotics for patient due to postoperative pain Orders Orders: Pelvic (Non ) Today R10.2 Transvaginal Non- Today R10.2 Medications New: doxycycline hyclate 100 mg PO BID 04/13/18 01/15/18 04/13/18 04/13/18 04/13/18 04/13/18 04/13/18 04/13/18 04/13/18 04/13/18 04/13/18 04/13/18 04/08/18 04/08/18 04/08/18 04/08/18 04/08/18 04/08/18 04/08/18 04/08/18 04/08/18 01/15/18 01/15/18 01/15/18 01/15/18 01/15/18 01/15/18 01/15/18 01/15/18 01/15/18 01/15/18 01/15/18 06/17/17 06/17/17 06/17/17 06/17/17 06/17/17 06/17/17 06/17/17 06/17/17 06/17/17 06/17/17 06/17/17 06/17/17 06/17/17 06/17/17 06/17/17 06/17/17 06/17/17 06/17/17 06/17/17 06/17/17 06/17/17 06/17/17 06/17/17 06/17/17 06/17/17 06/17/17 06/17/17 06/17/17 06/17/17 06/17/17 06/17/17 06/17/17 06/17/17 06/17/17 09/08/17 09/08/17 09/08/17 09/08/17 09/08/17 09/08/17 09/08/17 09/08/17 09/08/17 09/08/17 09/08/17 09/08/17 09/08/17 09/08/17 06/17/17 09/08/17 09/08/17 09/08/17 04/28/17 09/08/17 09/08/17 09/08/17 09/08/17 09/08/17 09/08/17 09/08/17 09/08/17 09/08/17 09/08/17 09/08/17 09/08/17 09/08/17 09/08/17 09/08/17 09/08/17 09/08/17 09/08/17 09/08/17 09/08/17 09/08/17 09/08/17 09/08/17 09/08/17 08/01/17 09/19/17 09/13/17 09/13/17 No data to display 09/13/17 09/18/17 Today [facility]12 (preferred) [facility] 09/19/17 09/19/17 09/18/17 09/15/17 09/14/17 09/13/17 09/13/17 09/13/17 09/13/17 09/13/17 09/13/17 09/13/17 SUCTION D&C, SURGERY 09/12/17 09/12/17 09/12/17 09/08/17 09/08/17 09/08/17 09/08/17 08/01/17 07/24/17 Future (all) No data to display Past (last three) Provider Location Date Zule[facility] Collado [facility] 09/19/17 Zuleyma Collado Out[facility] Ultrasound 09/19/17 [facility] No data to display [facility] [facility] Visit [facility] [address] [place] [address] OFFICE VISIT Date of Service: 09/18/17 MR#:[id number]:[id number] Name: SYLVESTER ZIMMERMAN [facility] #:[id number] : 1990 Provider:Zuleyma Collado MD Age/Sex: 27/F Location:[facility] Status:Signed Intake Vital Signs 09/18/17 Height 5 ft 7 in 09/18/17 Weight: 294 lb 6 oz 09/18/17 Body Mass Index (BMI) 46.0 09/18/17 Blood Pressure 108/68 Intake Visit Reasons: F/U D&C-in a lot of pain Orderly Required: No Is patient in pain?: Yes Pain scale (1-10): 10 Allergies aspirin Allergy (Verified 09/18/17 09:54) Rash Penicillins Allergy (Verified 09/18/17 09:54) Rash PAPER TAPE Allergy (Uncoded 09/12/17 14:54) Other Medications Metformin HCl [Glucophage] 1,000 mg PO BIDCM #60 tab 07/11/15 [Rx Confirmed 09/18/17] Liraglutide [Victoza 2-Rbad] 1.2 unit SC DAILY 09/08/17 [History Confirmed 09/18/17] insulin glargine (U-100) 100 unit/mL (3 mL) subcutaneous pen 38 unit SC QHS ml 09/12/17 [History Confirmed 09/18/17] oxycodone-acetaminophen 5 mg-325 mg tablet 1 tab PO Q4H PRN 3 Days #14 tab 09/16/17 [Rx Confirmed 09/18/17] doxycycline hyclate 100 mg capsule 100 mg PO BID #20 cap 09/18/17 [Rx Confirmed 09/18/17] Post menopausal: No Patient : No : No PFSH Medical History Diabetes mellitus (Chronic) Surgical History S/P dilation and curettage (Acute ~09/13/17) S/P (Resolved) S/P cholecystectomy (Resolved) s/p right hip surgery (Resolved) Family History Mother Diabetes CVA (cerebral vascular accident) Father Diabetes Grandmother Diabetes Grandfather Diabetes Social History Smoking Status: Never smoker alcohol intake: never substance use type: does not use caffeine: Yes what type of physical activity do you participate in: walking, bicycling frequency: 1-2 times per week seatbelt use: always do you feel safe at home: Yes additional social history: Engaged (getting next month)- [email or web address] for [employer] Patient is stay at home mom HPI F/U D&C-in a lot of pain: Details: SYLVESTER ZIMMERMAN is a 27 year old who presents for persistent posotperative pain. she co decreasing vaginal bleeding, no fevers, no foul smelling discarge but lower pelvic pain and vaginal pressure that is reena partly relieved with pain meds. bs are under 200. Pregancy History 6 Elective abortions Hx Para 4 Spontaneous abortions Hx # Term Pregnancies Ectopic pregnancies Hx # Pregnancies Multiple births # of living children Past Pregnancies Del. Date Name GA/Weeks Outcome Route Bth Weight Gen Labor Lgth Anesthesia Del Locatn Provider FOB 09/26/06 Miracle Female [facility] 08/14/12 [facility] live - full term [place] 01/15/14 Jim 38 live - full term [place] 01/19/15 [facility] 38 live - full term [facility] ROS Const Constitutional: Reports system reviewed and no additional complaints, except as docu GI GI: Reports as per HPI : Reports as per HPI Exam Const General: cooperative, healthy appearing, comfortable, no acute distress, well developed Nutritional Appearance: average body habitus Orientation: alert HENMT Head: normal to inspection, normocephalic Neck Neck: normal visual inspection, trachea midline Thyroid: thyroid normal Resp Effort & Inspection: normal respiratory effort GI Inspection: normal to inspection, non-distended Palpation: soft, no hepatosplenomegaly External Female Exam: normal external appearance, normal appearance of the urethra Urethra: normal appearance of the urethra, normal palpation, no discharge Speculum Exam - Vagina: normal appearance of the vagina, normal vaginal discharge Speculum Exam - Cervix: normal appearance of the cervix, nontender Bimanual Exam- Vagina & Uterus: No cervical tenderness, uterine size normal, uterine shape normal, uterine mobility normal, uterine consistency normal, normal cervical palpation, uterus tender Bimanual Exam- Adnexa, other: normal adnexae, adnexae mobile, no adnexal masses, pelvic support normal Pelvic Support: normal Skin General: no rashes or lesions noted Assessment & Plan Problems 1. Postoperative abdominal pain R10.9; G89.18 Plan recommend pelvic us and prophylactic antibiotics for patient due to postoperative pain US shows questionable retained POC- recommend repeat d and c
--- NOTE | 2017-09-19 17:43 | PCM.DC.D&C ---
Discharge Diet: No Restrictions Discharge Activity: Return to Normal Activity, May Shower, May Take a Tub Bath Allergies/Adverse Reactions: Allergies aspirin Allergy (Verified 09/18/17 09:54) Rash Penicillins Allergy (Verified 09/18/17 09:54) Rash PAPER TAPE Allergy (Uncoded 09/12/17 14:54) Other RED WELTS Medications to take at Discharge Metformin HCl [Glucophage] 1,000 mg PO BIDCM #60 tab 07/11/15 Liraglutide [Victoza 2-Brad] 1.2 unit SC DAILY 09/08/17 insulin glargine (U-100) 100 unit/mL (3 mL) subcutaneous pen 38 unit SC QHS ml 09/12/17 doxycycline hyclate 100 mg capsule 100 mg PO BID #20 cap 09/18/17 Naproxen [Naprosyn] 250 - 500 mg PO Q8H PRN PRN #30 tab 09/19/17 Oxycodone HCl/Acetaminophen [Percocet 5-325] 1 - 2 tablet PO Q4H PRN PRN 7 Days #15 tablet 09/19/17 The following prescriptions were given: Oxycodone HCl/Acetaminophen [Percocet 5-325] 1 - 2 tablet PO Q4H PRN PRN 7 Days #15 tablet PRN Reason: Pain Naproxen [Naprosyn] 250 - 500 mg PO Q8H PRN PRN #30 tab PRN Reason: MILD PAIN Primary Care Physician: Katya Sutherland MD [Primary Care Provider] - Please Follow Up With: Zuleyma Collado MD - [phone] When: in 2-3 weeks. take doxycycline x 10 days as previously ordered
[2017-09-19] MEDS: HYDROcodone Bitartrate/Apap 5/325 Tablet PO (18:24)
--- NOTE | 2017-09-20 06:48 | PCM.OPRPT ---
Problem List (1) Missed ab Status: Acute (2) Retained products of conception after miscarriage Status: Acute (3) Diabetes mellitus Status: Chronic Report of Operation Date of Procedure: 09/19/17 Pre-Operative Diagnosis: retained poc Post-Operative Diagnosis: same Surgery/Procedure Performed:: suction d and c Description of Surgical Findings:: minimal intrauterine tissue Type of Anesthesia:: Local MAC Special Medications: doxycycline Specimen's removed: endometrial currettings Drains: none Estimated Blood Loss (mL): minimal Fluids Replaced: crystalloid Description of Procedure: Patient was evaluated preoperatively and found to have possible retained POC after a d and c. Patient was counseled regarding the risk of infection and paina nd bleeding associated with possible retained porducts and the risks of multiple surgeries causing intrauterine scar tissue in the future, but due to risks it was decided to proceed with repeat d and c. Patient received IV anesthesia was prepped and draped in normal sterile fashion in the dorsal lithotomy position. Cervix was grasped with ring forceps and previously dilated to allow passage of a 7 mm suction curette. Uterus sounded 10 cm. Multiple passes were made with the suction curette with minimal tissue return and then sharp curettage was formed to confirm all removal of products of conception. bedside US was performed and lining was noted to be thin and visually less then 5 mm with no retained POC. All instruments were removed from the vagina and patient was awoken and taken recovery in stable condition. Grafts/Implants Used: none - Complications none
== END 2017-09-19 18:40 | disposition home or self-care (01) ==
LOC: SDC 12:28 → AC 12:29
PROVIDERS: Family Provider Internal Medicine; PCP Internal Medicine; Visit Provider Obstetrics & Gynecology
PROC: (CPT 59812; principal; 2017-09-19 12:30)
DX: O03.4 Incomplete spontaneous abortion without complication (principal); R10.2 Pelvic and perineal pain; E11.9 Type 2 diabetes mellitus without complications; Z79.4 Long term (current) use of insulin; J45.909 Unspecified asthma, uncomplicated; K21.9 Gastro-esophageal reflux disease without esophagitis; Z79.899 Other long term (current) drug therapy; G89.18 Other acute postprocedural pain
CPT/HCPCS: 59812; 76830; 76856; 82962; 88305; 93976; J7120; J2405

== ENCOUNTER 2017-11-19 13:36 | Emergency (ER) | payer MEDICAID, SELFPAY ==
[2017-11-19 13:36] VITALS: BP 131/87; PULSE 109; RESP 16; TEMP 36.4; O2SAT 97; BMI 45.4
[2017-11-19] MEDS: Ketorolac 30 MG/ML Syringe IV (14:27)
[2017-11-19] MEDS: Metoclopramide 10 MG/2 ML Vial IV (14:27)
[2017-11-19] MEDS: DiphenhydrAMINE 50 MG/ML Syringe 25 MG IV (14:27)
[2017-11-19] MEDS: 0.9% Normal Saline 1,000 ML 1000 ML IV (14:27)
--- NOTE | 2017-11-19 15:38 | ED.VISSUMM ---
- ER Visit Summary Date of Service: 11/19/17 Chief Complaint: [Ni, bleeding from right ear, right facial pain] History of Present Illness: The patient is a 27 F [presents to the emergency department complaint of a headache ?2 days. Patient states she woke up with it 2 days ago. Today patient is vomited ?4. Patient also states that this morning she noticed that she had blood from the right ear. Patient denies any trauma to her ear. Patient does use some sort of a curette or Q-tip to clean her ears. Patient also complaining of right-sided facial pain. She has had no fever. No significant cough or sore throat. Patient has had headaches in the past that have been similar. She does complain of photophobia. She has had no head trauma.] Physical Examination: [HEENT-PERRLA, EOMI. Cranial nerves II through XII grossly intact. TMs clear. Mucous membranes moist. No adenopathy. Evaluation of the right ear canal does reveal a small abrasion to the inferior floor of the canal with no active bleeding although there was small amount of clot noted there. The tympanic membrane appears to be intact without evidence of perforation. There is no evidence of infection. Patient does have tenderness palpation over right lower third molar that reproduces a lot of her facial discomfort. There is no evidence of dental abscess. No facial erythema or cellulitis noted. Cardiovascular-regular rate and rhythm without murmur or ectopy Lungs-clear to auscultation, chest wall stable without crepitus or subcu emphysema Abdomen-normoactive bowel sounds, soft, nontender, no rebound or rigidity, no peritoneal signs. Neuro jbqz-mqwjzh-kgel and heel to chen testing within normal limits, negative Romberg, negative pronator drift, fundi benign Extremities-intact ?4, normal range of motion, normal pulses, atraumatic] Test Results: None indicated] Emergency Department Course and Treatment: An IV line was established and patient was given a liter normal same fluid bolus as well as Reglan, Benadryl, and Toradol and her headache resolved. Patient was started on Cortisporin otic suspension. [] Treatment Plan: [Patient will be dispensed Cortisporin Otic suspension as well as clindamycin. Patient advised to use Tylenol for discomfort.] Disposition: [Discharged to home in stable condition. Patient advised to follow-up with the dentist within the next 5-7 days.] Impression: [Migrainous cephalgia-resolved Abrasion right ear canal Dental pain] This note was generated with [employer] dictation software. It may contain incorrect words, spelling, and punctuation that were not noted in review of the chart prior to signing ED Disposition - Plan for ED Patient: Chief Complaint: Cold Sx Referrals: Katya Sutherland MD [Primary Care Provider] -
--- NOTE | 2017-11-19 15:41 | ED.DCSUM_ITS ---
- ER Visit Summary Date of Service: 11/19/17 Chief Complaint: [Ni, bleeding from right ear, right facial pain] History of Present Illness: The patient is a 27 F [presents to the emergency department complaint of a headache ?2 days. Patient states she woke up with it 2 days ago. Today patient is vomited ?4. Patient also states that this morning she noticed that she had blood from the right ear. Patient denies any trauma to her ear. Patient does use some sort of a curette or Q-tip to clean her ears. Patient also complaining of right-sided facial pain. She has had no fever. No significant cough or sore throat. Patient has had headaches in the past that have been similar. She does complain of photophobia. She has had no head trauma.] Physical Examination: [HEENT-PERRLA, EOMI. Cranial nerves II through XII grossly intact. TMs clear. Mucous membranes moist. No adenopathy. Evaluation of the right ear canal does reveal a small abrasion to the inferior floor of the canal with no active bleeding although there was small amount of clot noted there. The tympanic membrane appears to be intact without evidence of perforation. There is no evidence of infection. Patient does have tenderness palpation over right lower third molar that reproduces a lot of her facial discomfort. There is no evidence of dental abscess. No facial erythema or cellulitis noted. Cardiovascular-regular rate and rhythm without murmur or ectopy Lungs-clear to auscultation, chest wall stable without crepitus or subcu emphysema Abdomen-normoactive bowel sounds, soft, nontender, no rebound or rigidity, no peritoneal signs. Neuro lwmy-avjrql-vsha and heel to chen testing within normal limits, negative Romberg, negative pronator drift, fundi benign Extremities-intact ?4, normal range of motion, normal pulses, atraumatic] Test Results: None indicated] Emergency Department Course and Treatment: An IV line was established and patient was given a liter normal same fluid bolus as well as Reglan, Benadryl, and Toradol and her headache resolved. Patient was started on Cortisporin otic suspension. [] Treatment Plan: [Patient will be dispensed Cortisporin Otic suspension as well as clindamycin. Patient advised to use Tylenol for discomfort.] Disposition: [Discharged to home in stable condition. Patient advised to follow -up with the dentist within the next 5-7 days.] Impression: [Migrainous cephalgia-resolved Abrasion right ear canal Dental pain] This note was generated with [employer] dictation software. It may contain incorrect words, spelling, and punctuation that were not noted in review of the chart prior to signing ED Disposition - Plan for ED Patient: Chief Complaint: Cold Sx Referrals: Katya Sutherland MD [Primary Care Provider] -
--- NOTE | 2017-11-19 15:41 | ED.DEP ---
ED Disposition - Plan for ED Patient: Chief Complaint: Cold Sx Instructions: ED Tooth Pain, ED Headache Migraine Prescriptions: Clindamycin HCl [Cleocin] 300 mg PO Q6H #40 cap Referrals: Katya Sutherland MD [Primary Care Provider] - 3-5 Days Additional Instructions: see a dentist
[2017-11-19 15:51] VITALS: BP 127/95; PULSE 104; RESP 16; O2SAT 95
[2017-11-19] MEDS: Neomycin Sulfate/Polymyxin/Hc Susp 10 ML Bottle 4 DRP OTIC (15:54)
== END 2017-11-19 15:58 | disposition home or self-care (01) ==
PROVIDERS: Emergency Provider Emergency Medicine; Family Provider Internal Medicine; PCP Internal Medicine
DX: G43.909 Migraine, unspecified, not intractable, without status migrainosus (principal); S00.411A Abrasion of right ear, initial encounter; X58.XXXA Exposure to other specified factors, initial encounter; Y93.9 Activity, unspecified; Y92.9 Unspecified place or not applicable; K08.89 Other specified disorders of teeth and supporting structures; E11.9 Type 2 diabetes mellitus without complications; Z90.49 Acquired absence of other specified parts of digestive tract; Z79.84 Long term (current) use of oral hypoglycemic drugs; Z79.4 Long term (current) use of insulin
CPT/HCPCS: 96361; 96374; 96375; 99283; J7030; A4216

== ENCOUNTER 2018-01-06 10:54 | Emergency (ER) | payer MEDICAID, SELFPAY ==
[2018-01-06 10:55] VITALS: BP 125/78; PULSE 113; RESP 18; TEMP 36.5; O2SAT 97; BMI 45.1
--- NOTE | 2018-01-06 11:52 | CT_ITS ---
STUDY: CT ABDOMEN AND PELVIS WITH CONTRAST REASON FOR EXAM: Female, 27 years old. Abdominal pain, nausea and vomiting RADIATION DOSAGE (If Supplied By Facility): CTDIvol = ( 17.07 ) mGy, DLP = ( 1352.08 ) mGycm TECHNIQUE: Transaxial images were obtained from the dome of the diaphragm to the symphysis pubis without oral contrast. 100 ml of Isovue 300 contrast was administered. Sagittal and coronal images were reconstructed. Individualized dose optimization techniques were used for this CT. COMPARISON: None. FINDINGS: The visualized lung bases are unremarkable. The visualized portions of the heart are within normal limits. The liver enhances heterogeneously. This may reflect transient hepatic attenuation differences ([place]). There are surgical clips in the gallbladder fossa consistent with a prior cholecystectomy. Normal spleen. The pancreas is foreshortened, with visualization of only the pancreatic head and proximal body. This may represent congenital hypoplasia or postoperative change. Normal bilateral adrenal glands. Normal right kidney. Normal left kidney. Normal visualized stomach. Normal small intestine. Normal colon. The appendix is visualized and appears normal. Normal abdominal aorta. Normal inferior vena cava. Normal retroperitoneum. Normal urinary bladder. Normal visualized uterus. Normal abdominal wall. Multiple Schmorl's nodes are seen within the spine. CT/Abdomen/Pelvis W IV Cont ONLY IMPRESSION: Heterogeneous liver may reflect transient hepatic attenuation differences. This can be seen with aberrant vascular supply. Postoperative changes of cholecystectomy. No bowel obstruction or acute renal pathology. Electronically Signed: Braden Bee DO at 14:36 EDT Tel , Service support ,
[2018-01-06] MEDS: Morphine 4 MG/ML Syringe IV ×2 (12:16→14:25)
[2018-01-06] MEDS: 0.9% Normal Saline 1,000 ML 1000 ML IV (12:17)
[2018-01-06] MEDS: Ondansetron 4 MG/2 ML Vial IV (12:17)
[2018-01-06 12:32] LABS: Mucous, Urine 0 SEEN /hpf (<or=2+); Red Blood Cells-Urine 0 SEEN /hpf (0-5)
[2018-01-06 12:34] LABS: Color, Urine Yellow (Yellow); Glucose, Dipstick Normal (Normal); Ketone-Dipstick 5 mg/dl (Negative); Leukocyte Esterase-Dipstick 25 /ul (Negative); Nitrite-Dipstick Negative (Negative); Occult Blood-Urine Negative /ul (Negative); Protein-Dipstick 30 mg/dl (Negative); Specific Gravity, Urine 1.025 (1.002-1.030); Urine Bilirubin Dipstick Negative (Negative); Urine Clarity Sl. Cloudy (Clear); Urine Urobilinogen Normal (Normal)
[2018-01-06 12:43] LABS: Absolute Lymphocyte Count 3.36 X10^3/ul (0.83-4.51); Absolute Neutrophil Count 7.2 X10^3/uL (2.0-7.7); Basophil# 0.02 X10^3/uL; Basophil% 0.2 % (0-1); Eosinophil# 0.13 X10^3/uL; Eosinophils% 1.1 % (0-5); Hematocrit 44.5 % (37-47); Hemoglobin 15.7 g/dl (12.0-15.0); Lymphocyte # 3.36 X10^3/ul (4.0); Mean Corp Hgb Conc 35.3 g/gl (32-36); Mean Corpuscular Volume 90.8 fL (81-99); Mean Platelet Vol. 9.6 fl (6.2-12.0); Monocyte# 0.85 X10^3/uL; Monocyte% 7.3 % (0-10); Neutrophil # 7.22 X10^3/uL (2.7-7.7); Neutrophil % 62.2 % (47-70); Platelet Count 301 K/mm3 (150-450); RBC Distribution Width CV 13.2 % (11.6-14.6); White Blood Count 11.6 K/mm3 (4.4-11.0)
[2018-01-06 12:44] LABS: POSITIVE COUNT NO; POSITIVE DIFFERENTIAL NO; POSITIVE MORPHOLOGY NO
[2018-01-06 12:51] LABS: Bacteria 1+ /hpf (None Seen); Squamous Epithelial Cells - UA 0-5 SEEN /hpf (5-10); White Blood Cells 0-5 SEEN /hpf (0-5)
[2018-01-06 12:52] LABS: ALB/GLOB Ratio 0.9 RATIO (0.9-2.4); AST(SGOT) 24 U/L (15-37); Alanine Aminotransfer ALT/SGPT 26 U/L (13-56); Albumin, Serum 3.6 g/dL (3.2-5.0); Alkaline Phosphatase 103 U/L (45-117); Anion Gap 9 (5-15); BUN 10 mg/dL (7-18); BUN/Creat Ratio 17.1 RATIO (10-20); Calcium,Total 8.6 mg/dL (8.5-10.1); Chloride 104 mmol/L (98-107); Creatinine, Serum 0.58 mg/dL (0.55-1.02); EST Glomerular Filtration Rate 133 mL/min (>60); Est Glom Filt Rate - Afr Amer 161 mL/min (>60); Estimated Creatinine Clearance 144.19 ml/min; Glucose 161 mg/dL (74-106); Lipase 69 U/L (73-393); Potassium 3.8 mmol/L (3.5-5.1); Protein, Total 7.6 g/dL (6.4-8.2); Sodium Level 137 mmol/L (136-145)
[2018-01-06 12:55] LABS: Pregnancy, Serum, hCG Quali. NEGATIVE Negative (0-9 Nonpreg)
[2018-01-06 13:08] VITALS: BP 127/81; PULSE 91; RESP 16; O2SAT 99
--- NOTE | 2018-01-06 15:15 | ED.VISSUMM ---
- ER Visit Summary Date of Service: 01/06/18 Chief Complaint: Abdominal pain History of Present Illness: The patient is a 27 F with 3 days of epigastric abdominal pain. Worse with food. Associated with nausea and vomiting. Normal bowel movement earlier today. No bleeding. No fevers. Patient never had this before. She does have a history of cholecystectomy and . No urinary or [employer]ENTICE symptoms. Physical Examination: Afebrile vital signs unremarkable except for a heart rate of 113. Patient appears uncomfortable but not toxic. Skin appears normal without pallor or jaundice. Heart regular. Lungs clear. Abdomen is tender in epigastric region. No guarding or rebound. Back is nontender. Test Results: White count 11.6. CMP unremarkable. Lipase normal. Urinalysis unremarkable. test negative. CT showed postoperative changes as well as transient hepatic attenuation differences. I spoke with radiology about this. This can be an imaging artifact. Given the patient's age, comorbidities, symptoms, and findings today, the radiologist recommended no further imaging or workup. She believes this is nonsignificant. Emergency Department Course and Treatment: Patient was treated with fluids, morphine, and Zofran while awaiting results. Workup was performed as above. Results were all fairly unremarkable. Radiology recommended no further imaging or diagnostic testing. Clinically, the patient appears well and would like to go home. I will prescribe a course of Motrin as well as Zofran. She should stay hydrated. Return for any new or worsening symptoms that she could require admission, reevaluation, or further diagnostic testing if her condition changes. Treatment Plan: As above Disposition: Discharged Impression: 1. Abdominal pain This note was generated with [employer] dictation software. It may contain incorrect words, spelling, and punctuation that were not noted in review of the chart prior to signing ED Disposition - Plan for ED Patient: Chief Complaint: Nausea/Vomiting Referrals: Katya Sutherland MD [Primary Care Provider] -
--- NOTE | 2018-01-06 15:18 | ED.DCSUM_ITS ---
- ER Visit Summary Date of Service: 01/06/18 Chief Complaint: Abdominal pain History of Present Illness: The patient is a 27 F with 3 days of epigastric abdominal pain. Worse with food. Associated with nausea and vomiting. Normal bowel movement earlier today. No bleeding. No fevers. Patient never had this before. She does have a history of cholecystectomy and . 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 Physical Examination: Afebrile vital signs unremarkable except for a heart rate of 113. Patient appears uncomfortable but not toxic. Skin appears normal without pallor or jaundice. Heart regular. Lungs clear. Abdomen is tender in epigastric region. No guarding or rebound. Back is nontender. Test Results: White count 11.6. CMP unremarkable. Lipase normal. Urinalysis unremarkable. test negative. CT showed postoperative changes as well as transient hepatic attenuation differences. I spoke with radiology about this. This can be an imaging artifact. Given the patient's age, comorbidities, symptoms, and findings today, the radiologist recommended no further imaging or workup. She believes this is nonsignificant. Emergency Department Course and Treatment: Patient was treated with fluids, morphine, and Zofran while awaiting results. Workup was performed as above. Results were all fairly unremarkable. Radiology recommended no further imaging or diagnostic testing. Clinically, the patient appears well and would like to go home. I will prescribe a course of Motrin as well as Zofran. She should stay hydrated. Return for any new or worsening symptoms that she could require admission, reevaluation, or further diagnostic testing if her condition changes. Treatment Plan: As above Disposition: Discharged Impression: 1. Abdominal pain This note was generated with [employer] dictation software. It may contain incorrect words, spelling, and punctuation that were not noted in review of the chart prior to signing ED Disposition - Plan for ED Patient: Chief Complaint: Nausea/Vomiting Referrals: aKtya Sutherland MD [Primary Care Provider] -
--- NOTE | 2018-01-06 15:18 | ED.DEP ---
ED Disposition - Plan for ED Patient: Chief Complaint: Nausea/Vomiting Instructions: Abdominal Pain Prescriptions: Ondansetron [Zofran Odt] 4 mg PO Q8H PRN PRN #10 tab PRN Reason: Nausea Ibuprofen [Motrin] 800 mg PO TID PRN PRN #20 tab PRN Reason: Pain Referrals: Katya Sutherland MD [Primary Care Provider] -
[2018-01-06 15:31] VITALS: BP 122/72; PULSE 92; RESP 18; TEMP 36.7; O2SAT 98
== END 2018-01-06 15:32 | disposition home or self-care (01) ==
PROVIDERS: Emergency Provider Emergency Medicine; Family Provider Internal Medicine; PCP Internal Medicine
DX: R10.13 Epigastric pain (principal); R11.2 Nausea with vomiting, unspecified; E11.9 Type 2 diabetes mellitus without complications; Z90.49 Acquired absence of other specified parts of digestive tract; Z79.4 Long term (current) use of insulin; Z79.84 Long term (current) use of oral hypoglycemic drugs
CPT/HCPCS: 74177; 80053; 81001; 83690; 84703; 85025; 96361; 96374; 96375; 96376; 99283; J7030; Q9967; J2405

== ENCOUNTER 2018-01-28 18:37 | Emergency (ER) | payer MEDICAID, SELFPAY ==
[2018-01-28 18:37] VITALS: BP 123/73; PULSE 102; RESP 18; TEMP 36.7; O2SAT 97; BMI 45.4
[2018-01-28] MEDS: HYDROcodone Bitartrate/Apap 5/325 Tablet PO (20:03)
--- NOTE | 2018-01-28 20:55 | ED.DCSUM_ITS ---
- ER Visit Summary Date of Service: 01/28/18 Chief Complaint: Right hip pain History of Present Illness: The patient is a [address] Kang. She reports that she has had 6 surgeries on her right hip for hip dysplasia. States that she fell 2 days ago and injured her right hip. She has sharp pains 10 out of 10 with walking and is unrelieved by tramadol and ibuprofen. She denies any paresthesias or weakness. No other injuries. She reports she is scheduled for pain management at [facility] February 17. She is unsure of this physician's name. She does report that this is for chronic hip pain. Physical Examination: Vitals: Stable. Afebrile. Neck: No vertebral tenderness. Full ROM without difficulty. Cleared by NEXUS criteria. Back: No vertebral tenderness. General: A&O x 3. NAD. Cardiovascular exam: Regular rate and rhythm, no murmur, rub or gallop. Respiratory exam: Chest nontender. No crepitus. Clear to auscultation bilaterally. No wheezes or stridor. Abdominal exam: Soft, nontender, nondistended, normal bowel sounds. No pain in RUQ or LUQ specifically. No peritoneal signs. Extremity: Mild tenderness palpation is diffuse over her greater trochanter and proximal femur. She is neurovascular intact distally. Test Results: Pelvis x-ray and right femur x-ray shows chronic changes with no acute fracture. Emergency Department Course and Treatment: Patient was treated with [place]. Treatment Plan: Had a prolonged discussion the patient at this time I do not feel that putting her on further opiate medications are indicated as this is chronic pain. She is instructed to continue her ibuprofen and tramadol. Follow -up with Dr. Kang 3-5 days if not improving. Follow-up pain management as soon as possible. Disposition: To home in improved and stable condition. Impression: 1. Acute on chronic right hip pain. This note was generated with [employer] dictation software. It may contain incorrect words, spelling, and punctuation that were not noted in review of the chart prior to signing ED Disposition - Plan for ED Patient: Disposition: Home or Assisted Living Chief Complaint: Lower Extremity Injury Instructions: ED Chronic Pain Management Referrals: Katya Sutherland MD [Primary Care Provider] - Kip Kang MD [STAFF PHYSICIAN] - 3-5 Days if not improving
== END 2018-01-28 21:45 | disposition home or self-care (01) ==
PROVIDERS: Emergency Provider Emergency Medicine; Family Provider Internal Medicine; PCP Internal Medicine
DX: M25.551 Pain in right hip (principal); G89.29 Other chronic pain; E11.9 Type 2 diabetes mellitus without complications; Z90.49 Acquired absence of other specified parts of digestive tract; Z79.84 Long term (current) use of oral hypoglycemic drugs; Z79.4 Long term (current) use of insulin
CPT/HCPCS: 72170; 73552; 99283

== ENCOUNTER 2018-02-21 13:17 | Emergency (ER) | payer MEDICAID, SELFPAY ==
[2018-02-21 13:17] VITALS: BP 175/94; PULSE 89; RESP 14; TEMP 37.1; O2SAT 98; BMI 45.4
--- NOTE | 2018-02-21 13:36 | ED.VISSUMM ---
- ER Visit Summary Date of Service: 02/21/18 Chief Complaint: Nausea, vomiting, diarrhea and epigastric abdominal pain History of Present Illness: The patient is a 27 F past medical history of insulin-dependent diabetes and one episode of pancreatitis. Status post cholecystectomy. Patient states last 4 days she has had nausea, vomiting, diarrhea and epigastric abdominal pain that radiates in her back. No fever. No dysuria. No vaginal bleeding or discharge. Physical Examination: Young female no acute distress. Vital signs are stable she is afebrile. She does not look septic or toxic. HEENT exam unremarkable. Moist mucous membranes. Neck nontender. No lymphadenopathy. Lungs clear to auscultation bilaterally. Heart regular rhythm no murmur. Abdomen soft. Nondistended. Normal bowel sounds. No peritoneal signs. Mild epigastric tenderness. No hernias or masses. No signs of obstruction. Moving all 4 extremities. Neurovascularly intact. Neck nontender. Neurologically awake and alert. No focal deficits. Test Results: BC normal. White count of 7. Normal hemoglobin. Electrolytes unremarkable gap 11. Creatinine normal. Glucose 236. Liver enzymes unremarkable. Her total bilirubin was slightly elevated but it has been that same level in the past. Lipase normal. test negative. Emergency Department Course and Treatment: Treated with IV fluids. IV Zofran and IV morphine for the abdominal pain. Treatment Plan: Repeat exam the patient is doing better at 1547. Abdomen is benign. She is comfortable being discharged home with outpatient follow-up. She will be written for Zofran. Disposition: Discharge Impression: Abdominal pain Acute nausea, vomiting and diarrhea secondary to viral gastroenteritis This note was generated with [employer] dictation software. It may contain incorrect words, spelling, and punctuation that were not noted in review of the chart prior to signing ED Disposition - Plan for ED Patient: Chief Complaint: Nausea/Vomiting/Diarrhea Referrals: Katya Sutherland MD [Primary Care Provider] -
[2018-02-21] MEDS: Ondansetron 4 MG/2 ML Vial IV (13:57)
[2018-02-21] MEDS: 0.9% Normal Saline 1,000 ML 1000 ML IV (13:57)
[2018-02-21] MEDS: Morphine 4 MG/ML Syringe IV (13:57)
[2018-02-21 14:06] LABS: Absolute Lymphocyte Count 2.96 X10^3/ul (0.83-4.51); Absolute Neutrophil Count 4.1 X10^3/uL (2.0-7.7); Basophil# 0.02 X10^3/uL; Basophil% 0.3 % (0-1); Eosinophil# 0.13 X10^3/uL; Eosinophils% 1.7 % (0-5); Hematocrit 39.4 % (37-47); Lymphocyte # 2.96 X10^3/ul (4.0); Lymphocyte % 37.8 % (19-41); Mean Corp Hgb Conc 35.5 g/gl (32-36); Mean Corpuscular Hgb 31.7 pg (27.0-32.0); Mean Corpuscular Volume 89.1 fL (81-99); Mean Platelet Vol. 9.2 fl (6.2-12.0); Monocyte# 0.62 X10^3/uL; Monocyte% 7.9 % (0-10); Neutrophil # 4.08 X10^3/uL (2.7-7.7); Platelet Count 258 K/mm3 (150-450); RBC Distribution Width CV 13.2 % (11.6-14.6); RBC Distribution Width SD 42.6 fl (35.1-43.9); Red Blood Count 4.42 M/mm3 (4.2-5.4); White Blood Count 7.8 K/mm3 (4.4-11.0)
[2018-02-21 14:07] LABS: Differential Indicated SCAN CRITERIA MET; POSITIVE COUNT NO; POSITIVE DIFFERENTIAL NO; POSITIVE MORPHOLOGY YES
[2018-02-21 14:15] LABS: AST(SGOT) 21 U/L (15-37); Alanine Aminotransfer ALT/SGPT 33 U/L (13-56); Albumin, Serum 3.5 g/dL (3.2-5.0); Alkaline Phosphatase 91 U/L (45-117); Anion Gap 11 (5-15); BUN 8 mg/dL (7-18); BUN/Creat Ratio 13.6 RATIO (10-20); Bilirubin, Direct 0.27 mg/dL (0.00-0.30); Calcium,Total 8.4 mg/dL (8.5-10.1); Chloride 105 mmol/L (98-107); Creatinine, Serum 0.59 mg/dL (0.55-1.02); EST Glomerular Filtration Rate 131 mL/min (>60); Est Glom Filt Rate - Afr Amer 159 mL/min (>60); Estimated Creatinine Clearance 141.75 ml/min; Globulin 3.4 g/dL (2.2-4.2); Glucose 236 mg/dL (74-106); Lipase 61 U/L (73-393); Potassium 3.5 mmol/L (3.5-5.1); Protein, Total 6.9 g/dL (6.4-8.2); Sodium Level 137 mmol/L (136-145)
[2018-02-21 14:22] LABS: Pregnancy, Serum, hCG Quali. NEGATIVE Negative (0-9 Nonpreg)
[2018-02-21 15:44] VITALS: BP 110/61; PULSE 80; RESP 18; O2SAT 96
--- NOTE | 2018-02-21 15:49 | ED.DEP ---
ED Disposition - Plan for ED Patient: Disposition: Home or Assisted Living Chief Complaint: Nausea/Vomiting/Diarrhea Instructions: ED Gastroenteritis Viral Prescriptions: Ondansetron [Zofran Odt] 4 mg PO Q4H PRN PRN #10 tab.rapdis PRN Reason: Nausea Referrals: Katya Sutherland MD [Primary Care Provider] - 3-5 Days if not improving Additional Instructions: Plenty fluids and rest. Zofran as needed for nausea. Return to ER feeling worse or follow-up your primary care physician if not improving.
[2018-02-21 15:56] VITALS: RESP 16
== END 2018-02-21 15:57 | disposition home or self-care (01) ==
PROVIDERS: Emergency Provider Emergency Medicine; Family Provider Internal Medicine; PCP Internal Medicine
DX: A08.4 Viral intestinal infection, unspecified (principal); R10.13 Epigastric pain; R11.2 Nausea with vomiting, unspecified; R19.7 Diarrhea, unspecified; E11.9 Type 2 diabetes mellitus without complications; Z87.19 Personal history of other diseases of the digestive system; Z90.49 Acquired absence of other specified parts of digestive tract; Z79.4 Long term (current) use of insulin; Z79.84 Long term (current) use of oral hypoglycemic drugs
CPT/HCPCS: 80048; 80076; 83690; 84703; 85025; 96361; 96374; 96375; 99283; J7030; J2405

== ENCOUNTER 2018-03-08 15:23 | Emergency (ER) | payer MEDICAID, SELFPAY ==
[2018-03-08 15:24] VITALS: BP 148/83; PULSE 96; RESP 17; TEMP 36.8; O2SAT 95; BMI 46.2
--- NOTE | 2018-03-08 15:53 | ED.VISSUMM ---
- ER Visit Summary Date of Service: 03/08/18 Chief Complaint: Back pain, right hip pain, sore throat, shortness of breath History of Present Illness: The patient is a 28 F who presents with the above symptoms. Started 2 days ago. She states she had an injection of the right hip due to hip dysplasia. This is the first time she has never had this. It was done by Dr. Figueroa in [place]. She states she is not sure what medication was injected but it was likely an anti-inflammatory she says. Since then she has had pain in the back that radiates down to the toes on the right-hand side. She has no sciatica history. She feels like her throat is closing. She feels short of breath at times. She also sees red spots throughout her body. She has taken nothing for this at home except for some Tylenol. Physical Examination: Vital signs are reviewed. BMI 46. Female in no distress. HEENT exam unremarkable. Heart is tachycardic and regular rhythm without murmurs. Lungs are clear bilaterally. Abdomen soft nontender. She has diffuse lumbar spinal tenderness down into the right buttock. Extremities reveal no edema. Skin exam reveals no rashes that I can see. No evidence of urticaria. Her neurologic exam is normal. Test Results: None performed Emergency Department Course and Treatment: At this point I do not see any rashes on the patient's body. Her throat looks normal. Her lungs are clear. She may have an element of sciatica with the pain radiating down to the toes on the right-hand side and on the posterior right leg. I have low suspicion for an allergic reaction to the medications that she was given in the joint. The skin looks normal. She has been ambulatory. I have also low suspicion for hematoma caused by the injection. I will give the patient steroids that should help if the rash does persist as well as the sciatica. She will continue NSAIDs at home and she will follow-up with her primary care physician. Treatment Plan: [] Disposition: Discharge Impression: Sciatica This note was generated with [employer] dictation software. It may contain incorrect words, spelling, and punctuation that were not noted in review of the chart prior to signing ED Disposition - Plan for ED Patient: Chief Complaint: Shortness of Breath Referrals: Katya Sutherland MD [Primary Care Provider] -
--- NOTE | 2018-03-08 15:56 | ED.DEP ---
ED Disposition - Plan for ED Patient: Disposition: Home or Assisted Living Chief Complaint: Shortness of Breath Instructions: ED Sciatica Prescriptions: Prednisone [Deltasone] 40 mg PO DAILY #10 tab Referrals: Katya Sutherland MD [Primary Care Provider] -
[2018-03-08] MEDS: predniSONE 20 MG Tablet 40 MG PO (16:11)
[2018-03-08 16:12] VITALS: BP 136/86; PULSE 99; RESP 18; O2SAT 96; O2SAT 98
== END 2018-03-08 16:27 | disposition home or self-care (01) ==
LOC: ED 16:12
PROVIDERS: Emergency Provider Emergency Medicine; Family Provider Internal Medicine; PCP Internal Medicine
DX: M54.41 Lumbago with sciatica, right side (principal); R06.00 Dyspnea, unspecified; Q65.89 Other specified congenital deformities of hip; E11.9 Type 2 diabetes mellitus without complications; Z79.4 Long term (current) use of insulin; Z79.84 Long term (current) use of oral hypoglycemic drugs
CPT/HCPCS: 99283

== ENCOUNTER 2018-05-13 09:03 | Emergency (ER) | payer MEDICAID, SELFPAY ==
[2018-05-13 09:04] VITALS: BP 117/69; PULSE 97; RESP 16; TEMP 36.3; BMI 44.1
--- NOTE | 2018-05-13 09:20 | ED.DCSUM_ITS ---
- ER Visit Summary Date of Service: 05/13/18 Chief Complaint: Abdominal pain and vomiting History of Present Illness: The patient is a [address] Carrizales. She reports that she has abdominal pain began 2 days ago. Is gradually gotten worse. It is a diffuse sharp pain that is 9 out of 10 in severity currently and 10 out of 10 at worst. Is worsened by eating or drinking anything. Is relieved by nothing. She reports she has been nauseated and vomited multiple times. States she vomited 4 times today. No blood in her emesis. No diarrhea. Her last bowel movement was yesterday. No melena or hematochezia. No dysuria or frequency. Her last menstrual period was last week. No vaginal bleeding or discharge. Patient denies sick contacts. Has not been camping out of the country. No possible bad food exposure. Does not drink well water. No recent antibiotic use. Physical Examination: Vitals: Stable. Afebrile. General: Well-nourished and well-developed. Head: Normocephalic atraumatic. Neck: Supple, no lymphadenopathy. No JVD. Nontender. Cardiovascular: Regular rate and rhythm. No murmurs. Respiratory: No respiratory distress. Clear to auscultation bilaterally. Abdominal: Soft, mild diffuse tenderness palpation that is worst in the left upper and left lower quadrants, nondistended, normal bowel sounds. No guarding, rebound, or peritoneal signs. Back: Nontender. Extremities: Nontender, no edema. Skin: Normal color, no rash. Neurologic: Alert and oriented ?3. Cranial nerves II through XII are intact. Normal strength and sensation. Psych: Normal affect. Test Results: CBC is normal. Chem-7 is remarkable for chloride of 108. UA shows occult blood and ketones. test is negative. Emergency Department Course and Treatment: Patient had an IV placed. She was given Zofran and morphine IV. She was given a liter of normal saline. She is resting comfortably. She has had no further vomiting while here. Treatment Plan: Patient will be discharged with Zofran. Instructed to follow-up her primary care physician 1-2 days if not improving. Return to the emergency department for any worsening symptoms. Disposition: To home in improved and stable condition. Impression: 1. Vomiting. This note was generated with [employer] dictation software. It may contain incorrect words, spelling, and punctuation that were not noted in review of the chart prior to signing ED Disposition - Plan for ED Patient: Chief Complaint: Nausea/Vomiting Instructions: ED Nausea Vomiting Prescriptions: Ondansetron [Zofran Odt] 4 mg PO Q8H PRN PRN #10 tablet PRN Reason: Nausea Referrals: Katya Sutherland MD [Primary Care Provider] - 1-2 Days if not improving
[2018-05-13] MEDS: 0.9% Normal Saline 1,000 ML 1000 ML IV (09:36)
[2018-05-13] MEDS: Morphine 4 MG/ML Syringe IV (09:36)
[2018-05-13] MEDS: Ondansetron 4 MG/2 ML Vial IV (09:36)
[2018-05-13 09:50] LABS: Absolute Lymphocyte Count 2.77 X10^3/ul (0.83-4.51); Basophil# 0.03 X10^3/uL; Basophil% 0.4 % (0-1); Eosinophil# 0.16 X10^3/uL; Eosinophils% 1.9 % (0-5); Hematocrit 38.9 % (37-47); Hemoglobin 13.9 g/dl (12.0-15.0); Lymphocyte # 2.77 X10^3/ul (4.0); Lymphocyte % 32.4 % (19-41); Mean Corp Hgb Conc 35.7 g/gl (32-36); Mean Corpuscular Hgb 32.5 pg (27.0-32.0); Mean Corpuscular Volume 90.9 fL (81-99); Mean Platelet Vol. 9.2 fl (6.2-12.0); Neutrophil # 4.96 X10^3/uL (2.7-7.7); Neutrophil % 58.1 % (47-70); POSITIVE COUNT NO; POSITIVE DIFFERENTIAL NO; POSITIVE MORPHOLOGY NO; Platelet Count 340 K/mm3 (150-450); RBC Distribution Width CV 12.9 % (11.6-14.6); RBC Distribution Width SD 42.5 fl (35.1-43.9); Red Blood Count 4.28 M/mm3 (4.2-5.4); White Blood Count 8.5 K/mm3 (4.4-11.0)
[2018-05-13 09:59] LABS: Anion Gap 12 (5-15); BUN 10 mg/dL (7-18); BUN/Creat Ratio 16.5 RATIO (10-20); Calcium,Total 8.6 mg/dL (8.5-10.1); Chloride 108 mmol/L (98-107); Creatinine, Serum 0.61 mg/dL (0.55-1.02); EST Glomerular Filtration Rate 127 mL/min (>60); Est Glom Filt Rate - Afr Amer 153 mL/min (>60); Estimated Creatinine Clearance 135.91 ml/min; Glucose 102 mg/dL (74-106); Potassium 3.6 mmol/L (3.5-5.1); Sodium Level 142 mmol/L (136-145)
[2018-05-13 10:18] VITALS: BP 128/73; PULSE 76; RESP 20; O2SAT 96
[2018-05-13 10:23] LABS: Pregnancy, Serum, hCG Quali. NEGATIVE Negative (0-9 Nonpreg)
[2018-05-13 10:25] LABS: Bacteria 0 SEEN /hpf (None Seen); White Blood Cells 0 SEEN /hpf (0-5)
[2018-05-13 10:26] LABS: Color, Urine Yellow (Yellow); Glucose, Dipstick Normal (Normal); Ketone-Dipstick 5 mg/dl (Negative); Leukocyte Esterase-Dipstick Negative /ul (Negative); Nitrite-Dipstick Negative (Negative); Occult Blood-Urine 25 /ul (Negative); Protein-Dipstick Negative (Negative); Specific Gravity, Urine 1.025 (1.002-1.030); Urine Bilirubin Dipstick Negative (Negative); Urine Clarity Sl. Cloudy (Clear); Urine Urobilinogen Normal (Normal)
[2018-05-13 10:33] LABS: Calcium Oxalate Crystals Ur 1+ /hpf (<or=2+); Mucous, Urine 1+ /hpf (<or=2+); Red Blood Cells-Urine 0-5 SEEN /hpf (0-5); Squamous Epithelial Cells - UA 0-5 SEEN /hpf (5-10)
[2018-05-13 11:23] VITALS: BP 128/73; PULSE 74; RESP 18; O2SAT 97
--- OUTSIDE RECORDS SUMMARY | 2018-06-29 09:42 | XMS RPT_ITS ---
:1990 Author Organization [place] Support Name Relationship Address Phone PILOMILTON Unavailable [address] + [place] [address] UE Unavailable Unavailable Unavailable MILTON DAIGLE Unavailable [address] + [place] [address] UE Unavailable Unavailable Unavailable MILTON DAIGLE Unavailable [address] + [place] [address] UE Unavailable Unavailable Unavailable MILTON DAIGLE Unavailable [address] + [place] [address] UE Unavailable Unavailable Unavailable MILTON DAIGLE Unavailable [address] + [place] [address] UE Unavailable Unavailable Unavailable MILTON DAIGLE Unavailable [address] + [place] [address] UE Unavailable Unavailable Unavailable MILTON DAIGLE Unavailable [address] + [place] [address] UE Unavailable Unavailable Unavailable MILTON DAIGLE Unavailable [address] + [place] [address] UE Unavailable Unavailable Unavailable MILTON DAIGLE Unavailable [address] + [place] [address] UE Unavailable Unavailable Unavailable MILTON DAIGLE Unavailable [address] + [place] [address] UE Unavailable Unavailable Unavailable MILTON DAIGLE Unavailable [address] + [place] [address] UE Unavailable Unavailable Unavailable MILTON DAIGLE Unavailable [address] + [place] [address] UE Unavailable Unavailable Unavailable PILO, MILTON Unavailable [address] + [place] [address] UE Unavailable Unavailable Unavailable PILO, MILTON Unavailable [address] + [place] [address] UE Unavailable Unavailable Unavailable PILO, MILTON Unavailable [address] + [place] [address] UE Unavailable Unavailable Unavailable UE Unavailable Unavailable Unavailable UE Unavailable Unavailable Unavailable PILO, MILTON Unavailable [address] + [place] [address] UE Unavailable Unavailable Unavailable PILO, MILTON Unavailable [address] + [place] [address] UE Unavailable Unavailable Unavailable PILO, MILTON Unavailable [address] + [place] [address] UE Unavailable Unavailable Unavailable Care Team Providers Name Role Phone GANTA, SUNNY Referring Unavailable GANTA, SUNNY Attending Unavailable MADELAINE HOBSON (PA) Referring Unavailable SONAM BARNEY Attending Unavailable KIP LUEVANO Referring Unavailable JAZLYNMADELAINE (PA) Attending Unavailable GANTA, SUNNY Referring Unavailable HATARA OCHOA (LAI) Referring Unavailable JAZLYNMADELAINE (PA) Attending Unavailable GANTA, SUNNY Referring Unavailable HAAGENTARA (LAI) Referring Unavailable TARA ROMAN (EDUCATIONAL TECHNOLOGY SPECIALIST) Referring Unavailable TARA ROMAN (EDUCATIONAL TECHNOLOGY SPECIALIST) Referring Unavailable TARA ROMAN (EDUCATIONAL TECHNOLOGY SPECIALIST) Attending Unavailable GANTA, SUNNY Referring Unavailable GANTA, SUNNY Attending Unavailable HATIPOGLU, BETUL A Referring Unavailable HATIPOGLU, BETUL A Attending Unavailable HATIPOGLU, BETUL A Referring Unavailable HATIPOGLU, BETUL A Referring Unavailable SONAM BARNEY Attending Unavailable KIP LUEVANO Referring Unavailable SONAM BARNEY Referring Unavailable GANTA, SUNNY Referring Unavailable ALBERT LANDA Attending Unavailable TARA ROMAN (EDUCATIONAL TECHNOLOGY SPECIALIST) Referring Unavailable KIP LUEVANO Attending Unavailable TARA ROMAN (EDUCATIONAL TECHNOLOGY SPECIALIST) Referring Unavailable TARA ROMAN (EDUCATIONAL TECHNOLOGY SPECIALIST) Attending Unavailable TARA ROMAN (EDUCATIONAL TECHNOLOGY SPECIALIST) Referring Unavailable TARA ROMAN (EDUCATIONAL TECHNOLOGY SPECIALIST) Referring Unavailable HAAGENTARA (EDUCATIONAL TECHNOLOGY SPECIALIST) Referring Unavailable GANTA, SUNNY Referring Unavailable TARA ROMAN (EDUCATIONAL TECHNOLOGY SPECIALIST) Attending Unavailable ISABELA HOANG Admitting Unavailable ISABELA HOANG Attending Unavailable ALBERT LANDA Admitting Unavailable ALBERT LANDA Attending Unavailable Ganta, Sunny Primary Care Unavailable RiccardoRickey Attending Unavailable Marcanthony, Zuleyma Attending Unavailable Ganta, Sunny Referring Unavailable Ganta, Sunny Primary Care Unavailable Bernie Morales Attending Unavailable Ganta, Sunny Primary Care Unavailable Palmer Mccoy Attending Unavailable Ganta, Sunny Primary Care Unavailable Ungur, Yobani Attending Unavailable Marcanthony, Zuleyma Attending Unavailable Ganta, Sunny Referring Unavailable Ganta, Sunny Primary Care Unavailable Marcanthony, Zuleyma Attending Unavailable Ganta, Sunny Primary Care Unavailable Marcanthony, Zuleyma Referring Unavailable Marcanthony, Zuleyma Attending Unavailable Marcanthony, Zuleyma Referring Unavailable Ganta, Sunny Primary Care Unavailable Marcanthony, Zuleyma Consulting Unavailable Marcanthony, Zuleyma Attending Unavailable Marcanthony, Zuleyma Referring Unavailable Ganta, Sunny Primary Care Unavailable Marcanthony, Zuleyma Consulting Unavailable Marcanthony, Zuleyma Attending Unavailable Ganta, Sunny Referring Unavailable Ganta, Sunny Primary Care Unavailable Marcanthony, Zuleyma Attending Unavailable Ganta, Sunny Primary Care Unavailable Marcanthony, Zuleyma Attending Unavailable Marcanthony, Zuleyma Referring Unavailable Ganta, Sunny Primary Care Unavailable Marcanthony, Zuleyma Attending Unavailable Marcanthony, Zuleyma Referring Unavailable Ganta, Sunny Primary Care Unavailable Marcanthony, Zuleyma Consulting Unavailable Marcanthony, Zuleyma Attending Unavailable Marcanthony, Zuleyma Referring Unavailable Ganta, Sunny Primary Care Unavailable Marcanthony, Zuleyma Consulting Unavailable Ganta, Sunny Primary Care Unavailable Ungur, Yobani Attending Unavailable Ganta, Sunny Primary Care Unavailable Venu Colvin Attending Unavailable Ganta, Sunny Primary Care Unavailable RiccardoRickey Attending Unavailable RiccardoRickey Referring Unavailable Ganta, Sunny Primary Care Unavailable Duane Venegas Attending Unavailable Ganta, Sunny Primary Care Unavailable Sonu Garvey Attending Unavailable PROBLEMS PROBLEMS DATE TYPE CONDITION / CODE ATTENDING STATUS SOURCE 06/13/2018 Unknown N83.202 - Unspecified Marcanthony, Active [facility] cyst, left [facility] N83.202(ICD-10) Repository 06/10/2018 Active Diarrhea, unspecified NA Active [facility] / R19.7(ICD-10) [facility] [place] Rep[facility] 06/10/2018 Active Unilateral NA Active [facility] osteoarthritis [facility] resulting from hip [place] dysplasia, right hip Repository / M16.31(ICD-10) 06/10/2018 Active Personal history of NA Active [facility] other diseases of the [facility] musculoskeletal [place] system and connective Repository tissue / Z87.39(ICD-10) 06/10/2018 Active Anemia, unspecified / NA Active [facility] D64.9(ICD-10) [facility] [place] Rep[facility] 06/10/2018 Active Unknown / GIBSONIA, Active [facility] UNK(Unknown) SONAM Luevano [facility] [place] Rep[facility] 06/02/2018 Active Type 2 diabetes NA Active [facility] mellitus with [facility] hyperglycemia / [place] E11.65(ICD-10) Repository 06/02/2018 Active group home (current) NA Active [facility] use of insulin / [facility] Z79.4(ICD-10) [place] Rep[facility] 05/22/2018 Active Nausea with vomiting, NIGEL, Active [facility] unspecified / ISABELA [facility] Other R11.2(ICD-10) [facility] Rep[facility] 05/23/2018 Active Unspecified condition NA Active [facility] associated with [facility] female genital organs [place] and menstrual cycle / Repository N94.9(ICD-10) 05/21/2018 Active Left upper quadrant NA Active [facility] pain / R10.12(ICD-10) [facility] [place] Rep[facility] 04/14/2018 Active Nontoxic goiter, NA Active [facility] unspecified / [facility] E04.9(ICD-10) [place] Rep[facility] 04/14/2018 Active Tachycardia, NA Active [facility] unspecified / [facility] R00.0(ICD-10) [place] Rep[facility] 03/11/2018 Active Pain, unspecified / NA Active [facility] R52(ICD-10) [facility] [place] Rep[facility] 02/17/2018 Active Pain in right hip / LANDA, ALBERT C Active [facility] M25.551(ICD-10) Clinic [facility] [place] Rep[facility] 02/17/2018 Active Other chronic pain / LANDA, ALBERT C Active [facility] G89.29(ICD-10) Clinic [facility] [place] Rep[facility] 03/04/2018 Active Disorder of white NA Active [facility] blood cells, [facility] unspecified / [place] D72.9(ICD-10) Repository 11/12/2017 Active Localized swelling, NA Active [facility] mass and lump, neck / [facility] R22.1(ICD-10) [place] Rep[facility] 11/11/2017 Active Other snf NA Active [facility] (current) drug [facility] therapy / [place] Z79.899(ICD-10) Repository 11/11/2017 Active Type 2 diabetes NA Active [facility] mellitus without [facility] complications / [place] E11.9(ICD-10) Repository 09/20/2017 Unknown G89.18 - Other acute Marcanthony, Active [facility] postprocedural pain / [facility] G89.18(ICD-10) Hospital Repository 10/05/2017 Unknown R10.2 - Pelvic and Marcanthony, Active [place] perineal pain / [facility] R10.2(ICD-10) Hospital Repository PROCEDURES PROCEDURES No Procedure Records FoundRESULTS RESULTS SEWER LINE REPAIRER OFFICE VISIT Observed: 06/13/2018 Status: F Source: [place] RE[place] 9:36 AM [facility] [address] [place] [address] OFFICE VISIT Date of Service: 06/13/18 MR#: [id number] Acct: [id number] Name: MIRZA DAIGLE Rep #: [id number] : 1990 Provider: Zuleyma Collado MD Age/Sex: 28/F Location: [facility] Status: Signed Intake Vital Signs06/13/18 Body Mass Index (BMI) 44.1 06/13/18 Height 5 ft 7 in 06/13/18 Weight: 280 lb 2 oz 06/13/18 Body Mass Index (BMI) 43.9 06/13/18 Blood Pressure 106/78 Intake Visit Reasons: CONSULT - DISCUSS US -PT REQUESTED RECORDS Surgical Coordinator Required: No Is patient in pain?: No Allergies aspirin Allergy (Verified 06/13/18 08:37) Rash Penicillins Allergy (Verified 06/13/18 08:37) Rash ketorolac [From Toradol] Adverse Reaction (Verified 06/13/18 08:37) Other PAPER TAPE Allergy (Uncoded 05/13/18 09:07) Other Medications Metformin HCl [Glucophage] 1,000 mg PO BIDCM #60 tab 07/11/15 [Rx Confirmed 06/13/18] Meloxicam 15 mg PO DAILY 02/21/18 [History Confirmed 06/13/18] Prednisone [Deltasone] 40 mg PO DAILY #10 tab 03/08/18 [Rx Confirmed 06/13/18] ergocalciferol (vitamin D2) 50,000 unit capsule 50,000 unit PO QWEEK 06/13/18 [History Confirmed 06/13/18] famotidine 40 mg tablet 40 mg PO DAILY 06/13/18 [History Confirmed 06/13/18] insulin glargine (U-100) 100 unit/mL (3 mL) subcutaneous pen 40 unit SC QHS ml 06/13/18 [History Confirmed 06/13/18] liraglutide 0.6 mg/0.1 mL (18 mg/3 mL) subcutaneous pen injector 1.8 mg SC DAILY ml 06/13/18 [History Confirmed 06/13/18] Is last menstrual period known: Yes Last Menstral Period: 06/02/18 Post menopausal: No Patient : No : No PFSH Medical History Vitamin D deficiency (Acute) Right hip pain (Chronic) Diabetes mellitus (Chronic) Surgical History S/P dilation and curettage (Acute 09/13/17) S/P (Resolved) S/P cholecystectomy (Resolved) s/p right hip surgery (Resolved) Family History Mother Diabetes CVA (cerebral vascular accident) Father Diabetes Grandmother Diabetes Grandfather Diabetes Social History Smoking Status: Never smoker alcohol intake: never substance use type: does not use caffeine: Yes what type of physical activity do you participate in: walking, bicycling frequency: 1-2 times per week seatbelt use: always do you feel safe at home: Yes additional social history: - [employer] [place] [employer] Patient is stay at home mom HPI CONSULT - DISCUSS US -PT REQUESTED RECORDS: Details: MIRZA DAIGLE is a 28 year old who presents for ovarian cyst. she has a 2 cm cyst that looks like a hemorrhagic cyst. she denies any pain and is wanting to conceive. she is having a hip replacement and then she will conceive after this. Female Reproductive History Last Menstral Period: 06/02/18 Cycle Length: 21-35 Pregancy History 6 Elective abortions Hx Para 4 Spontaneous abortions Past Pregnancies Del. DatName GA/WeeksOutcome Route [facility] ht en tn 09/26/06Miracle C-sectio Female [facility] n ROS Const Constitutional: Reports system reviewed and no additional complaints, except as docu GI GI: Reports system reviewed and no additional complaints, except as docu : Reports system reviewed and no additional complaints, except as docu Exam Const General: cooperative, healthy appearing, comfortable, no acute distress, well developed Nutritional Appearance: average body habitus Orientation: alert HENMT Head: normal to inspection, normocephalic Ears: hearing grossly normal bilaterally, external ears normal Nose: external nose normal, nares normal Face and sinus: normal facial exam Neck Neck: normal visual inspection, trachea midline, no lymphadenopathy Thyroid: thyroid normal Resp Effort AND Inspection: normal respiratory effort Musc Other: gross motor intact no deficits, full bilateral strength Skin General: no rashes or lesions noted Neuro Motor: muscle tone normal throughout Assessment AND Plan Problems 1. Cyst of left ovary N83.202 Plan no follow up imaging needed fu PRN Medications New: Coding Level of Care Code Off vis,est,level 3 Diagnoses Cyst of left ovary N83.202 Laterality: left 06/13/18 0936 <Electronically signed by Zuleyma Collado MD> Date Zuleyma Collado MD Cosigner Signature: Date (if applicable) CC: PROGRESS Observed: 06/11/2018 Status: COMPLETED Source: [facility] 10:13 PM [facility] REPOSITORY HNO ID: [id number] Author: Jayleen (Rn) Anish Whitten RN Service: (none) Author Type: Registered Nurse Type: Progress Notes Filed: 06/11/2018 10:13 PM Note Text: Patient referred to Blood Management for pre-surgical optimization. Hgb 14.1 which exceeds Blood Management guidelines for intervention. CBC AND DIFFERENTIAL Collected: 06/10/2018 Status: F Source: [place] 3:[address] [facility] REPOSITORY TYPE CODE TESTS RESULT OUT OF REFERENCE UNITS RANGE LAB WBC 3.70-11.00 k/uL WBC 10.84 LAB RBC 3.90-5.20 m/uL RBC 4.53 LAB HGB 11.5-15.5 g/dL Hemoglobin 14.1 LAB HCT 36.0-46.0 % Hematocrit 41.4 LAB MCV 80.0-100.0 fL MCV 91.4 LAB MCH 26.0-34.0 pG MCH 31.1 LAB MCHC 30.5-36.0 g/dL MCHC 34.1 LAB RDWCV 11.5-15.0 % RDW-CV 12.9 LAB PLTCT 150-400 k/uL Platelet Count 345 LAB MPV 9.0-12.7 fL MPV 9.3 LAB ANEUT % Neut% 62.9 LAB AANEUT 1.45-7.50 k/uL Abs Neut 6.82 LAB ALYMP % Lymph% 30.2 LAB AALYMP 1.00-4.00 k/uL Abs Lymph 3.27 LAB AMONO % Worth% 5.7 LAB AAMONO <0.87 k/uL Abs Worth 0.62 LAB AEOS % Eosin% 1.0 LAB AAEOS <0.46 k/uL Abs Eosin 0.11 LAB ABASO % Baso% 0.2 LAB AABASO <0.11 k/uL Abs Baso <0.03 LAB DTYP DTYPE Auto Diff Performed By: #### IRON, FERR #### [facility] [address] [place], [place] [address] COMP METABOLIC PANEL Collected: 06/10/2018 Status: F Source: [place] 3:[address] [facility] REPOSITORY TYPE CODE TESTS RESULT OUT OF REFERENCE UNITS RANGE LAB TP 6.3-8.0 g/dL Protein, Total 7.8 LAB ALB 3.9-4.9 g/dL Albumin 4.9 LAB CA 8.6-10.0 mg/dL Calcium, Total 9.9 LAB TBIL 0.2-1.3 mg/dL Bilirubin, Total 1.2 LAB ALKP 34-123 U/L Alkaline Phosphatase 92 LAB AST 13-35 U/L AST 23 LAB GLU 74-99 mg/dL Glucose High 171 LAB BUN 7-21 mg/dL BUN 14 LAB CRET 0.58-0.96 mg/dL Creatinine Low 0.51 LAB NA 136-144 mmol/L Sodium 141 LAB K 3.7-5.1 mmol/L Potassium 4.4 LAB CL 97-105 mmol/L Chloride 101 LAB CO2 22-33 mmol/L CO2 Low 19 LAB AGAP 9-18 mmol/L Anion Gap High 21 LAB ALT 7-38 U/L ALT 17 LAB GFRAA eGFR- >60 Amer. LAB GFRNAA . eGFR-All Other Races >60 Result Comment: eGFR (Estimated GFR) Units of measure: mL/min/1.73 meters squared eGFR is derived from the reexpressed MDRD Study equation using the following parameters: serum creatinine, age, gender and race. The creatinine assay has been calibrated to be traceable to IDMS. An eGFR <60 mL/min/1.73m2 for >3 months is consistent with chronic kidney disease. Refer to KDOQI guidelines for clinical interpretation. In patients with unstable renal function, e.g. those with acute kidney injury, the eGFR may not accurately reflect actual GFR. Performed By: #### IRON, FERR #### [facility] [address] [address] IRON AND TIBC Collected: 06/10/2018 Status: F Source: [place] 3:[address] [facility] REPOSITORY TYPE CODE TESTS RESULT OUT OF REFERENCE UNITS RANGE LAB IRN 41-186 ug/dL Iron 70 LAB TIBC 232-386 ug/dL TIBC 264 LAB SAT 15-57 % Transferrin Saturatn 27 Performed By: #### IRON, FERR #### [facility] [address] [place] [address] FERRITIN Collected: 06/10/2018 Status: F Source: [place] 3:[address] [facility] REPOSITORY TYPE CODE TESTS RESULT OUT OF REFERENCE UNITS RANGE LAB FERR 14.7-205.1 ng/mL Ferritin 105.1 Performed By: #### IRON, FERR #### [facility] [address] [address] CNOV Observed: 06/10/2018 Status: COMPLETED Source: [place] 2:[address] [facility] REPOSITORY Office Visit (ELIZABETH) MIRZA DAIGLE ([id number]) 1990 F Date Time Provider Department 06/10/18 2:30 PM SONAM BARNEY During your visit today, we recorded the following information about you: Weight Height 126.1 kg 1.702 m Sonam Barney MD, MD 06/10/2018 3:40 PM Signed CONSULT ORTHOPAEDIC: HIP PRIMARY CARE PHYSICIAN: SUNNY WELLS MD REFERRING PROVIDER: Kip Luevano MD [address] [facility] [address] ASSESSMENT AND PLAN: Impression: Right hip secondary arthritis/proximal femoral deformity. Prior SCFE with subsequent proximal femoral osteotomy We discussed the clinical and radiographic findings in detail. This is a challenging problem with her proximal femoral deformity. She has severe and intolerable symptoms, has failed all reasonable nonsurgical treatment. Ultimately I do not think that a hip preserving procedure will likely give long-standing benefit, and her best reconstructive option is a hip replacement. We discussed the particular difficulties and increased risks in her situation. Patient has been recently able to control her blood glucose levels and her HgbA1c has normalized, and she has lost 15 pounds. Her elevated BMI does increase her risk of perioperative complication which was discussed in detail with the patient. She understands this risk and would like to proceed with a right total hip replacement, we discussed increased technical difficulty and risk of complications as a result of her specific situation. ACTIVE PROBLEM LIST Type 2 diabetes mellitus (HCC) Obesity, Unspecified History of Depression Depression Pain in Right Hip Chronic Pain of Right Hip Nausea and Vomiting SUBJECTIVE CHIEF COMPLAINT: Hip Pain HPI: In today for right hip pain -states she has been diagnosed with Hip dysplasia and has had 6 surgeries over the years. She had a IA hip injection to the right on 03/06 with no relief. States she felt she had an allergic reaction as she woke up sweating and in more pain from the injection. States the injection did not work at all for her Mirza Daigle is a 28 year old female here for evaluation and management of Right hip pain. She has had progressive problems with the hip(s) constantly over the past 10 month(s) interfering with activities which include walking, rising from a sitting position, standing for prolonged periods of time, getting in and out of a car and climbing stairs. The problem began limiting activities 7-12 months ago. Currently the pain in the joint is rated at 10 out of 10 with moderate activity. The pain is constant and is located in the right buttocks, groin and outer aspect of the hip. The pain is described as sharp. Relieving factors include no relieving factors. There is no specific incident that brought about this pain. She also complains of numbness, popping and States numbness radiates to the knee and she falls. FUNCTIONAL STATUS: Walk a block or two on level ground (2.75 METs) Preoperative Ambulatory Status: Independent Community Distances Number of Entry Steps: 2 Bedroom Location: First floor Bathroom Location: First floor Caregiver Assistance: Consistent/Live-In (5-7 days/wk) Home Location: [place] 150 [place] PREVIOUS TREATMENTS: Medical: RX NSAIDS for 3 Months or Greater (meloxicam (Mobic)), Steroid Injections Right Hip Physical Therapy: Activities Modified Previous Surgery: States she has had 6 surgeries for hip dysplasia (with rods and screws and marrow -no screws in place at this time) REVIEW OF SYSTEMS: GENERAL: Denies fever, chills malaise and weight loss.. PAIN ASSESSMENT: See HPI. HEENT: No recent change in vision or hearing.. CARDIOVASCULAR: Denies chest pain, history of A-fib, valvular disease, hypertension, CHF or pacemaker/ICD.. RESPIRATORY: Denies SOB, sputum production, dyspnea, COPD and hemoptysis.. GI: Denies inflammatory disease, ascites or liver disease. and + Stomach Ulcer. : Denies change in frequency or urgency, kidney disease, and burning with urination.. MUSCULOSKELETAL: See HPI. SKIN: Denies rash or itching.. PSYCHOLOGICAL: Denies uncontrolled depression or anxiety.. NEURO: Denies CVA, seizures, headaches.. ENDOCRINE: Positive for diabetes mellitus on insulin. HEMATOLOGY/LYMPHOLOGY: Denies cancer, bleeding or clotting disorders, anemia,and DVT's.. ALLERGIC/IMMUNOLOGICAL: Denies risks for infection, or recent MRSA infections. Surgical Risk Factors: Diabetes and Morbid Obesity PAST MEDICAL HISTORY Diagnosis Date - Anemia WITH 2ND - Asthma since 14 years old, inhaler PRN - Complex ovarian cyst - Needs follow up imaging 06/09/2013 06/09/2013 An ultrasound was done 06/04/2013 that revealed a 6w5d fetus with DELFINA of 01/24/14. There is fluid seen adjacent to the gestastional sac possible subchorionic hemorrhage. the left ovary is within normal limits but the right ovary contains a 3.8 x 3 x 3.3 cm moderately complex cyst. TKRN 01/15/2014 - Confirmed 9 x 7 x 2.5 cm multi-loculated cyst at the time of . Needs outpatient follow up via [facility]. - Congenital hip deformity right - Diabetes, gestational insulin controlled - Family history of defects 06/09/2013 06/09/2013Patient's mother born with spina bifida. Patient's brother born with a hole in his heart. Patient has another brother that was born with Down syndrome. Patient and her brother born with a congenital hip deformity. Patient has had multiple corrective surgeries for the hip deformity.TKRN - Family history of Down syndrome 06/21/2014 Brother with DS - Family history of spina bifida 06/21/2014 Mom with Spina bifida in wheelchair - Gall stones 2007 Gall bladder removed - History of asthma 06/09/2013 06/09/2013Patient has a history of asthma. She uses an albuterol inhaler when necessary. TKRN - History of 06/09/2013 06/09/2013 Pt had 3 previous C sections. - History of kidney stones - Nausea/vomiting in 06/09/2013 06/09/2013She states she has nausea . Advised patient to call/come in if she has persistent vomiting or if her blood sugars were less than 70. TKRN - Ovarian cyst during 07/21/2014 07/21/14: see NT ultrasound: Right ovarian cyst 6cm - Pain in joint, pelvic region and thigh 01/10/2006 - Pancreatitis - Patient requested diagnostic testing 06/09/2013 06/09/2013 Patient desires early screening in with sequential testing. TKRN - depression - Prior macrosomia, antepartum 06/21/2014 - Short interval between pregnancies complicating , antepartum 06/09/2013 06/09/2013Nikki delivered her previous child August 14, 2012.TKRN - Type 2 diabetes mellitus (HCC) 05/22/2013 - Type 2 diabetes mellitus complicating , antepartum 05/28/2013 06/09/2013Nikki has a history of diabetes diagnosed 4 years ago. She was unaware that she was until she went into labor with her first . With her second she started insulin during the second trimester. She was referred to Dr. Tejada at [facility] for poorly controlled diabetes on metformin alone. She has since started insulin and has an appointment today with Dr. Guevara for followup. She has been keeping track of her blood sugars and presents with a journal today and these blood sugars are copy off and given to Dr. Guevara for his review. I have discussed with the patient the importance of good control of her blood sugars during and keeping a blood sugar log for review by the Doctor. She is reminded that she is to send her blood sugars in weekly to Dr. Guevara and she is to call sooner than a week if she has persistently high, greater the 180, or low blood sugars, less than 70. She is provided with a blood sugar log today. She has not had a diabetic foot or eye exam rece PAST SURGICAL HISTORY Procedure Laterality Date - DELIVERY ONLY , low transverse x3 - DELIVERY ONLY 01/19/15 , low transverse - COLONOSCOPY 05/28/2018 - EGD 05/28/2018 - IANDD ABSC; SMPL OR SGL 05/2013 cyst on left upper chest - LAPAROSCOPIC CHOLEYCYSTECTOMY Cholecystectomy, lap - PAST SURGICAL HISTORY OF tubes in ears per Dr Crockett at [facility] - PAST SURGICAL HISTORY OF Tonsils and Adenoids removed per Dr Crockett at [facility] - PAST SURGICAL HISTORY OF [address] Marroquin at [facility] and one by Dr. Camacho in [place] - REMOVAL OF OVARY/TUBE(S) 01/19/15 Salpingo-oophorectomy, right ovarian mass FAMILY HISTORY Problem Relation Age of Onset - Diabetes Mother - Hypertension Mother - other (spina bifida) Mother - Heart Father - Hypertension Father - Cancer Maternal Grandmother - Alcohol/Drug Maternal Grandmother - Heart Paternal Grandmother - Aneurysm Paternal Grandmother - Stroke Brother - other (Down Syndrome) Brother - other (autism) Brother step brother - seizures and cerebral palsy also - other (Open family hx of Neural Tube Defect) Brother Social History Marital status: Single Spouse name: Years of education: 10 Number of children: 2 Occupational History Occupation Employer Comment HOMEMAKER Social History Main Topics Smoking status: Never Smoker Smokeless tobacco: Never Used Comment: mom's fiance smokes outside Alcohol use: No Drug use: No Sexual activity: Yes Partners with: Male ALLERGIES: Aspirin; Paper Tape [Other]; Penicillins; Tramadol MEDICATIONS: pantoprazole DR (PROTONIX) 40 mg tablet Take 1 tablet by mouth once daily. ondansetron (ZOFRAN) 8 mg tablet Take 1 tablet by mouth every 8 hours as needed. meloxicam (MOBIC) 15 mg tablet Take 1 tablet by mouth daily with food. insulin needles, DISPOSABLE, (PEN NEEDLE) 31 gauge x 5/16 ndle One daily with insulin liraglutide (VICTOZA) 0.6 mg/ 0.1 ml subcutaneous pen injector Inject 1.8 mg subcutaneously once daily. pravastatin (PRAVACHOL) 20 mg tablet Take 1 tablet by mouth once daily. topiramate (TOPAMAX) 25 mg capsule Take 1 capsule by mouth daily at bedtime. ergocalciferol, vitamin D2, (DRISDOL) 50,000 unit capsule Take 1 capsule by mouth once each week. blood sugar diagnostic (FREESTYLE LITE STRIPS) test strip Use as directed 4 times daily. metFORMIN ER (GLUCOPHAGE XR) 500 mg 24 hr tablet TAKE TWO TABLETS BY MOUTH WITH BREAKFAST AND TWO TABLETS WITH SUPPER insulin glargine (BASAGLAR KWIKPEN U-100 INSULIN) 100 unit/mL (3 mL) inpn Inject 40 Units subcutaneously daily at bedtime. COMPOUNDED PRESCRIPTION One Touch meter kit. Lancets (ONETOUCH ULTRASOFT LANCETS) lancets Test blood sugar(s) 5 times daily. Dx: Type 2 DM - Controlled E11.9 , Insulin: yes famotidine (PEPCID) 20 mg tablet Take 1 tablet by mouth daily at bedtime. Alcohol Swabs padm Use as directed up to 5 times daily DM: yes Insulin: yes DX: E.11.9 Oral Medication Containers (SHARPS CONTAINER) misc 1 Can twice daily. COMPOUNDED PRESCRIPTION 1 Each as needed. Sharps Container. Dx:Diabetes mellitus, antepartum (648.03) Oral Medication Containers (BD SHARPS PRIVATE BANKER) misc 1 Container as needed (to disopse of insulin needles). Lancets (ONE TOUCH SURESOFT LANCING DEV) lancets Use as instructed PHYSICAL EXAM Ht 170.2 cm (5' 7) Wt 126.1 kg (278 lb) BMI 43.54 kg/m? The patient is well dressed and normal appearing. Normal mood and affect. No respiratory distress. Pulse is regular. Pedal pulses are palpable bilaterally. No peripheral edema or lymphadenopathy. Negative seated straight leg raise bilaterally. Good psoas, quadriceps, dorsi-and plantar-flexion strength bilaterally. Distal sensation is intact throughout. Skin is intact without lesions about both lower extremities. Gait evaluation reveals a severe limp. Leg length discrepancy of 15 mm, R < L. Previous scars: Extended lateral and smaller anterolateral incisions well-healed without sign of infection. Holds right lower extremity and externally rotated posture. Conserably more external rotation than internal. Right hip motion is reduced and causes pain. FADIR, YONG, and Stinchfield tests do reproduce the characteristic groin pain. Tenderness to palpation: Minimal over the lateral aspect of the greater trochanter. left hip examination is normal, with painless unrestricted range of motion. No pain with FADIR, YONG, or Stinchfield tests. Tenderness to palpation: None. DATA: Diagnostic tests reviewed for today's visit: Right hip x-ray was personally reviewed with the patient. Prior evidence of proximal femoral osteotomy with subsequent hardware removal. Mild joint space narrowing. Irregularity of the femoral head. Khushboo Hathaway, RN, RN 06/10/2018 2:50 PM Signed Instructions for Blood Management Decreasing the need for blood transfusions after surgery can help your body heal faster and help your body fight infection better. Blood Management will check your blood and iron levels to see if you would benefit from having treatment to help increase your blood counts before your surgery. What do you need to do? 1. Go and have your labs (CBC, Ferritin, Iron Studies) drawn today or within the next three days at the nearest [facility] lab. If you would like, you can go today, following your appointment, to any of our outpatient labs. 2. If it is determined that you would benefit from treatment, someone from the Blood Management Department will call you. If we call you, we will then give further instructions for iron replacement. If you do not hear from Blood Management, your lab results were okay and you do not need additional iron replacement. Questions? Contact us: If you are having surgery at [facility] or If you are having surgery at [place], [place], [facility] , [place], [place], [place], [facility], or [facility] Referring Provider: KIP LUEVANO [[id number]] Allergies As of Date: 06/10/2018 Noted Allergy Reaction ASPIRIN 09/18/2005 4 - Hives 8 - GI Upset paper tape [Other] 06/26/2005 2 - Rash 7 - Swelling 9 - Itching Comments: Area gets very red also PENICILLINS 05/11/2013 4 - Hives TRAMADOL 04/14/2018 14 - Other: See Comments Comments: Tachycardia Date Reviewed: 06/10/2018 Reviewed by: Sonam Barney MD - Fully Assessed Reason for Visit: Established Patient [175] Cmt: right hip Primary Visit Diagnosis: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] Other Visit Diagnoses: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] Anemia, unspecified type [D64.9] Order(s):PATIENT PLACED ON YENI RENARD CARE PATH [[id number]] Order #: [id number]: 1 ALBUMIN BLD [SQALB] Order #: [id number] FUTURE CBC + DIFF [SQCBCDIF] Order #: [id number] FUTURE IRON + TIBC [SQIRON] Order #: [id number] FUTURE FERRITIN BLD [SQFERR] Order #: [id number] FUTURE BLOOD MANAGEMENT REFERRAL [[id number]] Order #: [id number]: 3 TOTAL JOINT REPLACEMENT PRE-SURGERY EDUCATION CLASS [[id number]] Order #: [id number]: 1 COMP METABOLIC PANEL [SQCMP] Order #: [id number] FUTURE ROLLING WALKER [[id number]] Order #: [id number] Prescriptions as of 06/10/2018 Sig: PANTOPRAZOLE 40 MG TABLET,DEL* Take 1 tablet by mouth once d* ONDANSETRON HCL 8 MG TABLET Take 1 tablet by mouth every * MELOXICAM 15 MG TABLET Take 1 tablet by mouth daily * PEN NEEDLE, DIABETIC 31 GAUGE* One daily with insulin LIRAGLUTIDE 0.6 MG/0.1 ML (18* Inject 1.8 mg subcutaneously * PRAVASTATIN 20 MG TABLET Take 1 tablet by mouth once d* TOPIRAMATE 25 MG SPRINKLE CAP* Take 1 capsule by mouth daily* ERGOCALCIFEROL (VITAMIN D2) 5* Take 1 capsule by mouth once * BLOOD SUGAR DIAGNOSTIC STRIPS Use as directed 4 times daily. METFORMIN ER 500 MG TABLET,EX* TAKE TWO TABLETS BY MOUTH WIT* INSULIN GLARGINE (U-100) 100 * Inject 40 Units subcutaneousl* COMPOUNDED PRESCRIPTION One Touch meter kit. LANCETS Test blood sugar(s) 5 times * FAMOTIDINE 20 MG TABLET Take 1 tablet by mouth daily * ALCOHOL SWABS Use as directed up to 5 times* EMPTY CONTAINER 1 Can twice daily. COMPOUNDED PRESCRIPTION 1 Each as needed. Sharps Cont* EMPTY CONTAINER 1 Container as needed (to dis* LANCETS Use as instructed Problem List As Of Date 06/10/2018 Noted Resolved Type 2 diabetes mellitus (HCC) [E11.9] INVALID FOR* More... More... More... Obesity, unspecified [E66.9] INVALID FOR* More... History of flank pain [Z87.898] INVALID FOR*06/21/2014 More... More... More... History of depression [Z86.59] INVALID FOR* More... More... More... More... More... More... More... Depression [F32.9] INVALID FOR* Pain in right hip [M25.551] INVALID FOR* More... Chronic pain of right hip [M25.551, G89.29] INVALID FOR* More... Nausea and vomiting [R11.2] INVALID FOR* More... Other instructions from your clinician: Instructions for Blood Management Decreasing the need for blood transfusions after surgery can help your body heal faster and help your body fight infection better. Blood Management will check your blood and iron levels to see if you would benefit from having treatment to help increase your blood counts before your surgery. What do you need to do? 1. Go and have your labs (CBC, Ferritin, Iron Studies) drawn today or within the next three days at the nearest [facility] lab. If you would like, you can go today, following your appointment, to any of our outpatient labs. 2. If it is determined that you would benefit from treatment, someone from the Blood Management Department will call you. If we call you, we will then give further instructions for iron replacement. If you do not hear from Blood Management, your lab results were okay and you do not need additional iron replacement. Questions? Contact us: If you are having surgery at [facility] or If you are having surgery at [place], [place], [facility] , [place], [place], [place], [facility], or [facility] Follow-up and Disposition History Recorded Encounter Status:Closed by SONAM BARNEY MD on 06/10/18 PROGRESS Observed: 06/10/2018 Status: COMPLETED Source: [place] 2:[address] [facility] REPOSITORY HNO ID: [id number] Author: Sonam Barney MD Service: (none) Author Type: Physician Type: Progress Notes Filed: 06/10/2018 3:40 PM Note Text: CONSULT ORTHOPAEDIC: HIP PRIMARY CARE PHYSICIAN: SUNNY WELLS MD REFERRING PROVIDER: Kip Luevano MD [address] [facility] [id number] ASSESSMENT AND PLAN: Impression: Right hip secondary arthritis/proximal femoral deformity. Prior SCFE with subsequent proximal femoral osteotomy We discussed the clinical and radiographic findings in detail. This is a challenging problem with her proximal femoral deformity. She has severe and intolerable symptoms, has failed all reasonable nonsurgical treatment. Ultimately I do not think that a hip preserving procedure will likely give long-standing benefit, and her best reconstructive option is a hip replacement. We discussed the particular difficulties and increased risks in her situation. Patient has been recently able to control her blood glucose levels and her HgbA1c has normalized, and she has lost 15 pounds. Her elevated BMI does increase her risk of perioperative complication which was discussed in detail with the patient. She understands this risk and would like to proceed with a right total hip replacement, we discussed increased technical difficulty and risk of complications as a result of her specific situation. ACTIVE PROBLEM LIST Type 2 diabetes mellitus (HCC) Obesity, Unspecified History of Depression Depression Pain in Right Hip Chronic Pain of Right Hip Nausea and Vomiting SUBJECTIVE CHIEF COMPLAINT: Hip Pain HPI: In today for right hip pain -states she has been diagnosed with Hip dysplasia and has had 6 surgeries over the years. She had a IA hip injection to the right on 03/06 with no relief. States she felt she had an allergic reaction as she woke up sweating and in more pain from the injection. States the injection did not work at all for her Mirza Daigle is a 28 year old female here for evaluation and management of Right hip pain. She has had progressive problems with the hip(s) constantly over the past 10 month(s) interfering with activities which include walking, rising from a sitting position, standing for prolonged periods of time, getting in and out of a car and climbing stairs. The problem began limiting activities 7-12 months ago. Currently the pain in the joint is rated at 10 out of 10 with moderate activity. The pain is constant and is located in the right buttocks, groin and outer aspect of the hip. The pain is described as sharp. Relieving factors include no relieving factors. There is no specific incident that brought about this pain. She also complains of numbness, popping and States numbness radiates to the knee and she falls. FUNCTIONAL STATUS: Walk a block or two on level ground (2.75 METs) Preoperative Ambulatory Status: Independent Community Distances Number of Entry Steps: 2 Bedroom Location: First floor Bathroom Location: First floor Caregiver Assistance: Consistent/Live-In (5-7 days/wk) Home Location: [place] to 150 miles PREVIOUS TREATMENTS: Medical: RX NSAIDS for 3 Months or Greater (meloxicam (Mobic)), Steroid Injections Right Hip Physical Therapy: Activities Modified Previous Surgery: States she has had 6 surgeries for hip dysplasia (with rods and screws and marrow -no screws in place at this time) REVIEW OF SYSTEMS: GENERAL: Denies fever, chills malaise and weight loss.. PAIN ASSESSMENT: See HPI. HEENT: No recent change in vision or hearing.. CARDIOVASCULAR: Denies chest pain, history of A-fib, valvular disease, hypertension, CHF or pacemaker/ICD.. RESPIRATORY: Denies SOB, sputum production, dyspnea, COPD and hemoptysis.. GI: Denies inflammatory disease, ascites or liver disease. and + Stomach Ulcer. : Denies change in frequency or urgency, kidney disease, and burning with urination.. MUSCULOSKELETAL: See HPI. SKIN: Denies rash or itching.. PSYCHOLOGICAL: Denies uncontrolled depression or anxiety.. NEURO: Denies CVA, seizures, headaches.. ENDOCRINE: Positive for diabetes mellitus on insulin. HEMATOLOGY/LYMPHOLOGY: Denies cancer, bleeding or clotting disorders, anemia,and DVT's.. ALLERGIC/IMMUNOLOGICAL: Denies risks for infection, or recent MRSA infections. Surgical Risk Factors: Diabetes and Morbid Obesity PAST MEDICAL HISTORY Diagnosis Date - Anemia WITH 2ND - Asthma since 14 years old, inhaler PRN - Complex ovarian cyst - Needs follow up imaging 06/09/2013 06/09/2013 An ultrasound was done 06/04/2013 that revealed a 6w5d fetus with DELFINA of 01/24/14. There is fluid seen adjacent to the gestastional sac possible subchorionic hemorrhage. the left ovary is within normal limits but the right ovary contains a 3.8 x 3 x 3.3 cm moderately complex cyst. TKRN 01/15/2014 - Confirmed 9 x 7 x 2.5 cm multi-loculated cyst at the time of . Needs outpatient follow up via [facility]. - Congenital hip deformity right - Diabetes, gestational insulin controlled - Family history of defects 06/09/2013 06/09/2013Patient's mother born with spina bifida. Patient's brother born with a hole in his heart. Patient has another brother that was born with Down syndrome. Patient and her brother born with a congenital hip deformity. Patient has had multiple corrective surgeries for the hip deformity.TKRN - Family history of Down syndrome 06/21/2014 Brother with DS - Family history of spina bifida 06/21/2014 Mom with Spina bifida in wheelchair - Gall stones 2007 Gall bladder removed - History of asthma 06/09/2013 06/09/2013Patient has a history of asthma. She uses an albuterol inhaler when necessary. TKRN - History of 06/09/2013 06/09/2013 Pt had 3 previous C sections. - History of kidney stones - Nausea/vomiting in 06/09/2013 06/09/2013She states she has nausea . Advised patient to call/come in if she has persistent vomiting or if her blood sugars were less than 70. TKRN - Ovarian cyst during 07/21/2014 07/21/14: see NT ultrasound: Right ovarian cyst 6cm - Pain in joint, pelvic region and thigh 01/10/2006 - Pancreatitis - Patient requested diagnostic testing 06/09/2013 06/09/2013 Patient desires early screening in with sequential testing. TKRN - depression - Prior macrosomia, antepartum 06/21/2014 - Short interval between pregnancies complicating , antepartum 06/09/2013 06/09/2013Nikki delivered her previous child August 14, 2012.TKRN - Type 2 diabetes mellitus (HCC) 05/22/2013 - Type 2 diabetes mellitus complicating , antepartum 05/28/2013 06/09/2013Nikki has a history of diabetes diagnosed 4 years ago. She was unaware that she was until she went into labor with her first . With her second she started insulin during the second trimester. She was referred to Dr. Tejada at [facility] for poorly controlled diabetes on metformin alone. She has since started insulin and has an appointment today with Dr. Guevara for followup. She has been keeping track of her blood sugars and presents with a journal today and these blood sugars are copy off and given to Dr. Guevara for his review. I have discussed with the patient the importance of good control of her blood sugars during and keeping a blood sugar log for review by the Doctor. She is reminded that she is to send her blood sugars in weekly to Dr. Guevara and she is to call sooner than a week if she has persistently high, greater the 180, or low blood sugars, less than 70. She is provided with a blood sugar log today. She has not had a diabetic foot or eye exam rece PAST SURGICAL HISTORY Procedure Laterality Date - DELIVERY ONLY , low transverse x3 - DELIVERY ONLY 01/19/15 , low transverse - COLONOSCOPY 05/28/2018 - EGD 05/28/2018 - IANDD ABSC; SMPL OR SGL 05/2013 cyst on left upper chest - LAPAROSCOPIC CHOLEYCYSTECTOMY Cholecystectomy, lap - PAST SURGICAL HISTORY OF tubes in ears per Dr Crockett at [facility] - PAST SURGICAL HISTORY OF Tonsils and Adenoids removed per Dr Crockett at [facility] - PAST SURGICAL HISTORY OF [address] Marroquin at [facility] and one by Dr. Camacho in [place] - REMOVAL OF OVARY/TUBE(S) 01/19/15 Salpingo-oophorectomy, right ovarian mass FAMILY HISTORY Problem Relation Age of Onset - Diabetes Mother - Hypertension Mother - other (spina bifida) Mother - Heart Father - Hypertension Father - Cancer Maternal Grandmother - Alcohol/Drug Maternal Grandmother - Heart Paternal Grandmother - Aneurysm Paternal Grandmother - Stroke Brother - other (Down Syndrome) Brother - other (autism) Brother step brother - seizures and cerebral palsy also - other (Open family hx of Neural Tube Defect) Brother Social History Marital status: Single Spouse name: Years of education: 10 Number of children: 2 Occupational History Occupation Employer Comment HOMEMAKER Social History Main Topics Smoking status: Never Smoker Smokeless tobacco: Never Used Comment: mom's fiance smokes outside Alcohol use: No Drug use: No Sexual activity: Yes Partners with: Male ALLERGIES: Aspirin; Paper Tape [Other]; Penicillins; Tramadol MEDICATIONS: pantoprazole DR (PROTONIX) 40 mg tablet Take 1 tablet by mouth once daily. ondansetron (ZOFRAN) 8 mg tablet Take 1 tablet by mouth every 8 hours as needed. meloxicam (MOBIC) 15 mg tablet Take 1 tablet by mouth daily with food. insulin needles, DISPOSABLE, (PEN NEEDLE) 31 gauge x 5/16 ndle One daily with insulin liraglutide (VICTOZA) 0.6 mg/ 0.1 ml subcutaneous pen injector Inject 1.8 mg subcutaneously once daily. pravastatin (PRAVACHOL) 20 mg tablet Take 1 tablet by mouth once daily. topiramate (TOPAMAX) 25 mg capsule Take 1 capsule by mouth daily at bedtime. ergocalciferol, vitamin D2, (DRISDOL) 50,000 unit capsule Take 1 capsule by mouth once each week. blood sugar diagnostic (FREESTYLE LITE STRIPS) test strip Use as directed 4 times daily. metFORMIN ER (GLUCOPHAGE XR) 500 mg 24 hr tablet TAKE TWO TABLETS BY MOUTH WITH BREAKFAST AND TWO TABLETS WITH SUPPER insulin glargine (BASAGLAR KWIKPEN U-100 INSULIN) 100 unit/mL (3 mL) inpn Inject 40 Units subcutaneously daily at bedtime. COMPOUNDED PRESCRIPTION One Touch meter kit. Lancets (ONETOUCH ULTRASOFT LANCETS) lancets Test blood sugar(s) 5 times daily. Dx: Type 2 DM - Controlled E11.9 , Insulin: yes famotidine (PEPCID) 20 mg tablet Take 1 tablet by mouth daily at bedtime. Alcohol Swabs padm Use as directed up to 5 times daily DM: yes Insulin: yes DX: E.11.9 Oral Medication Containers (SHARPS CONTAINER) misc 1 Can twice daily. COMPOUNDED PRESCRIPTION 1 Each as needed. Sharps Container. Dx:Diabetes mellitus, antepartum (648.03) Oral Medication Containers (BD SHARPS PRIVATE BANKER) misc 1 Container as needed (to disopse of insulin needles). Lancets (ONE TOUCH SURESOFT LANCING DEV) lancets Use as instructed PHYSICAL EXAM Ht 170.2 cm (5' 7) Wt 126.1 kg (278 lb) BMI 43.54 kg/m? The patient is well dressed and normal appearing. Normal mood and affect. No respiratory distress. Pulse is regular. Pedal pulses are palpable bilaterally. No peripheral edema or lymphadenopathy. Negative seated straight leg raise bilaterally. Good psoas, quadriceps, dorsi-and plantar-flexion strength bilaterally. Distal sensation is intact throughout. Skin is intact without lesions about both lower extremities. Gait evaluation reveals a severe limp. Leg length discrepancy of 15 mm, R < L. Previous scars: Extended lateral and smaller anterolateral incisions well-healed without sign of infection. Holds right lower extremity and externally rotated posture. Conserably more external rotation than internal. Right hip motion is reduced and causes pain. FADIR, YONG, and Stinchfield tests do reproduce the characteristic groin pain. Tenderness to palpation: Minimal over the lateral aspect of the greater trochanter. left hip examination is normal, with painless unrestricted range of motion. No pain with FADIR, YONG, or Stinchfield tests. Tenderness to palpation: None. DATA: Diagnostic tests reviewed for today's visit: Right hip x-ray was personally reviewed with the patient. Prior evidence of proximal femoral osteotomy with subsequent hardware removal. Mild joint space narrowing. Irregularity of the femoral head. PROGRESS Observed: 06/04/2018 Status: COMPLETED Source: [place] 5:29 PM [facility] [place] REPOSITORY HNO ID: [id number] Author: Madelaine Hobson (Pa) Service: (none) Author Type: Physician Pc Tech Type: Progress Notes Filed: 06/09/2018 9:42 PM Note Text: FOLLOW UP VISIT - ENDOSCOPY NAME: Mirza Doss [facility] NO.: [id number] DATE OF SERVICE: 06/04/2018 : 1990 REFERRING PHYSICIAN: SUNNY WELLS MD Mirza is a patient I am following for with Dr. Hoang for postprandial vomiting and diarrhea. Per my HANDP from 05/22/18: The patient is a 28 year old female referred for surgical evaluation. Patient notes a 2-week history of postprandial left upper quadrant abdominal discomfort with associated vomiting and/or watery diarrhea usually within 10 minutes after eating. Describes pain as cramping in nature. Denies radiation of the pain. She notes this regardless of type of food and states has had this evening with drinking water or gatorade. Denies blood in stools or black stools. She states she experiences the above symptoms only in association with eating, not between meals. She denies any sick contacts, changes in diet or recent travel. ? Patient was recently evaluated in the emergency department at [facility] for the above complaints, was treated with fluids and antiemetics and released. She was then evaluated by her PCP for the above complaints on 05/21/18. She had labwork as well as a CT abdomen/pelvis ordered which are reviewed: ? Impression ? IMPRESSION: Left adnexal mass can be further evaluated by ultrasound. Fatty liver. Slightly dilated common bile duct can be correlated with hepatic function blood tests. Nonobstructing left intrarenal calculi Plastic Card Grader Cardroom: XIAO ? Transcribe Date/Time: May 21 2018 ?3:13P Dictated by : STACY BARLOW MD This examination was interpreted and the report reviewed and electronically signed by: STACY BARLOW MD on May 21 2018 ?3:24PM ?EST Results-Findings ? * * *Final Report* * * DATE OF EXAM: May 21 2018 ?2:40PM ? [facility] ? 0530 ?- ?CT ABD/PEL W IVCON ?/ PROCEDURE REASON: Left upper quadrant pain ?? ? * * * * Physician Interpretation * * * * ?EXAMINATION: ?CT ABDOMEN AND PELVIS WITH IV CONTRAST CLINICAL HISTORY: Left upper quadrant abdominal pain, vomiting TECHNIQUE: CT of the abdomen and pelvis was performed using standard technique, scanning from just above the dome of the diaphragm to the symphysis pubis. MQ: ?CTAP_3 Contrast: IV: ?150 ml of Omnipaque 300 Oral: ?50 ml of 50ML Omnipaque [address] Radiation dose: Integrated Dose-length product (DLP) for this visit = ? 1199 mGy*cm. CT Dose Reduction Employed: Automated exposure control(AEC) and iterative recon COMPARISON: None. RESULT: Liver: No mass. Generalized fatty infiltration. Ill-defined area of hypodensity in the medial segment of the left lobe adjacent to the falciform ligament is thought to be focal more marked steatosis. Biliary: Common duct is dilated up to 14 mm in the corey hepatis, which can sometimes be seen status post cholecystectomy. No intrahepatic biliary dilatation. Common duct does not appear dilated more distally within the head of the pancreas. Spleen: No mass. No splenomegaly. Pancreas: No mass or duct dilation. Adrenals: No mass. Kidneys: No hydronephrosis or mass. 2 punctate densities in the lower pole hilar area of the left kidney are thought to be nonobstructing collecting system calculi. GI tract: No dilation or wall thickening. Appendix appears normal Lymph nodes: No abdominal or pelvic lymphadenopathy. Mesentery/Peritoneum: No ascites or mass. Retroperitoneum: No mass. Vasculature: ?The celiac axis and SMA are patent. The portal vein and branches, splenic vein, SMV, and hepatic veins are patent. Pelvis: 4 cm hypodense left adnexal mass may be a cyst. Bones/Soft Tissues: Intact Lower thorax: Clear ? ? Component Latest Ref Rng AND Units 05/21/2018 WBC 3.70 - 11.00 k/uL 11.06 (H) RBC 3.90 - 5.20 m/uL 4.39 Hemoglobin 11.5 - 15.5 g/dL 14.0 Hematocrit 36.0 - 46.0 % 40.7 MCV 80.0 - 100.0 fL 92.7 MCH 26.0 - 34.0 pG 31.9 MCHC 30.5 - 36.0 g/dL 34.4 RDW-CV 11.5 - 15.0 % 12.9 Platelet Count 150 - 400 k/uL 351 MPV 9.0 - 12.7 fL 9.5 Neut% % 60.3 Abs Neut (ANC) 1.45 - 7.50 k/uL 6.67 Lymph% % 31.0 Abs Lymph 1.00 - 4.00 k/uL 3.43 Worth% % 6.7 Abs Worth <0.87 k/uL 0.74 Eosin% % 1.7 Abs Eosin <0.46 k/uL 0.19 Baso% % 0.3 Abs Baso <0.11 k/uL 0.03 Nucleated Reds 0 /100 WBC 0.0 Absolute nRBC <0.01 k/uL <0.01 Diff Type ? Auto Diff Protein, Total 6.3 - 8.0 g/dL 6.9 Albumin 3.9 - 4.9 g/dL 4.4 Calcium 8.5 - 10.2 mg/dL 9.3 Bilirubin, Total 0.2 - 1.3 mg/dL 1.2 Alkaline Phosphatase 34 - 123 U/L 80 AST 13 - 35 U/L 25 Glucose 74 - 99 mg/dL 112 (H) BUN 7 - 21 mg/dL 9 Creatinine 0.58 - 0.96 mg/dL 0.49 (L) Sodium 136 - 144 mmol/L 139 Potassium 3.7 - 5.1 mmol/L 3.7 Chloride 97 - 105 mmol/L 103 CO2 22 - 30 mmol/L 23 Anion Gap mmol/L 13 ALT 7 - 38 U/L 29 eGFR- ? >60 eGFR-All Other Races . >60 GLUCOSE UA (POCT) Negative mg/dL Negative BILIRUBIN UA (POCT) Negative Negative KETONE UA (POCT) Negative mg/dL Trace SPECIFIC GRAVITY UA (POCT) 1.005 - 1.030 >=1.030 HEMOGLOBIN/BLOOD UA (POCT) Negative Trace-intact (A) PH UA (POCT) 4.5 - 8.0 5.5 PROTEIN UA (POCT) Negative mg/dL Negative UROBILINOGEN UA (POCT) Normal E.U./dL 0.2 NITRITE UA (POCT) Negative Negative LEUKOCYTES UA (POCT) Negative Negative COLOR UA (POCT) ? Other CLARITY UA (POCT) ? Slightly Cloudy H. pylori IgG, Qualitative Negative Negative H pylori Ab, IgG U/mL <0.4 H. pylori IgA, Qualitative Negative Negative H pylori Ab, IgA UNITS 11 Specimen Request ? Specimen received in preservative Culture ? 50,000 - <100,000 CFU/ml . . . ? ? Patient referred for surgical evaluation and possible endoscopy. Mirza has not undergone prior endoscopy. She denies any family history of colon cancer. Patient's past medical history is significant for asthma, gallstone pancreatitis, type II diabetes mellitus. Past surgical history is significant for cholecystectomy, two C- sections, right salpingo-oophorectomy. She denies any chest pain or shortness of breath. Denies any problems with sedation in the past. Dr. Hoang performed upper and lower endoscopy with biopsies on 05/28/18. The patient was found to have normal appearing colon, esophagus, stomach, normal examined portions of duodenum and ileum, with no obvious abnormalities on upper or lower endoscopy. Multiple biopsies were taken for further evaluation based on patient's clinical history. Pathology demonstrated: FINAL DIAGNOSIS 1. Jejunum, biopsy (A) - Small bowel mucosa with no diagnostic abnormality. ? ? 2. Stomach, antrum, biopsy (B) - Gastric antral-type mucosa with mild reactive gastropathy. ? 3. Distal esophagus, biopsy (C) - Gastric cardia-type mucosa with mild chronic inflammation, negative for intestinal metaplasia or dysplasia. - Squamous mucosa with mild reactive epithelial changes. ? ? 4. Mid esophagus, biopsy (D) - Squamous mucosa with no diagnostic abnormality. ? ? 5. Terminal ileum and cecum, biopsy (E) - Fragments of small bowel and colonic mucosa with no diagnostic abnormality. ? 6. Random descending colon, biopsy (F) - Colonic mucosa with no diagnostic abnormality. JEL/dss 05/29/2018 COMMENT 1. Histologic changes of celiac sprue are not identified. No?parasites are seen. 2. No Helicobacter pylori organisms are identified. 3, 4. Histologic changes of eosinophilic esophagitis are not identified. 5, 6. There is no evidence of chronic or active colitis, including lymphocytic or collagenous colitis. The patient notes no improvement in her abodminal complaints since the procedure. VITALS: Blood pressure 120/76, weight 126.6 kg (279 lb). General: patient is alert, cooperative, pleasant and in no acute distress On examination, the abdomen is benign. Assessment IMPRESSION: postprandial left-sided abdominal discomfort, vomiting and loose stools of unclear etiology. ?dietary intolerance vsmotility disorder. Unremarkable upper and lower endoscopy PLAN: I have reviewed my findings with Dr. Hoang The operative findings and pathology report were reviewed with the patient. The patient has had the opportunity to ask questions and have questions answered -Dietary and lifestyle modifications as discussed, trial of PPI -Food diary -[place] diet, small meals until symptoms improving -Referral to GI for further evaluation-information forwarded to medical staff services manager to arrange and contact patient with appointment Patient verbalized understanding of all above and is agreeable to this plan Diagnoses: (R10.9) Left lateral abdominal pain (primary encounter diagnosis) (R19.4) Change in bowel habits (R10.10) Upper abdominal pain (R11.2) Non-intractable vomiting with nausea, unspecified vomiting type I spent 20 minutes in the visit, with more than 50% of the total [id number] time of the visit in counseling / coordination of care. Madelaine Hobson PA-C CNOV Observed: 06/04/2018 Status: COMPLETED Source: [place] 1:[address] [facility] REPOSITORY Office Visit (GENSWS) MIRZA DAIGLE ([id number]) 1990 F Date Time Provider Department 06/04/18 1:00 PM MADELAINE HOBSON (PA) During your visit today, we recorded the following information about you: Blood pressure Weight 120/76 126.6 kg Madelaine Hobson PA-C 06/04/2018 1:25 PM Addendum -Stool cultures -Referral to GI The following instructions are important for you related to your office visit today with the [facility]. INSTRUCTIONS FOLLOWING A NORMAL COLONOSCOPY I discussed with you the findings of your colonoscopy. Since there were no worrisome abnormalities, I recommend you undergo repeat endoscopic screening at age 47. This is the current recommendation for colon cancer screening. If you note bleeding, change in bowel habits, or other suspicious colon related symptoms before that time, those symptoms should be evaluated as necessary. and INSTRUCTIONS FOR PEPTIC ULCER DISEASE - ESOPHAGITIS I discussed with you the findings of your upper endoscopy. Your upper endoscopy demonstrated esophagitis Esophagitis may be a form of peptic irritation, with acid moving from the stomach to the esophagus (gastroesophageal reflux) Factors that increase acid production include smoking and stress. If you smoke, stopping smoking will often cure these issues without needing other medications. Over the counter medications including antiacids and acid reducing medications including H2 blockers (Zantac and the like) and proton pump inhibitors (prilosec, prevacid and the like) neutralize or prevent acid production. Prescription strength proton pump inhibitors (PPIs) may be necessary if your symptoms persist. Carafate may be added to PPI treatment in refractory cases. Avoiding smoking, alcohol and antiinflammatory medications are important in the successful treatment of reflux esophagitis and peptic diseases. Other factors that contribute to GERD and esophagitis are being overweight, eating large meals before laying down and certain foods. Weight loss will help improve many GERD complaints. Remaining upright after eating large meals and having a small supper will also help symptoms. Avoiding food that contribute to reflux - chocolate, caffeine, cheddar cheese may also help. Follow up upper endoscopy may be recommended to assure healing of the esophagus. New or worsening symptoms such are epigastric pain, burning, difficulty swallowing or food sticking should be relayed to your physician. Feeling full early after eating, or black, tarry, foul smelling stools are also worrisome. If you have any difficulties or concerns, you should contact our office immediately. If you note any additional difficulties, questions, or concerns, you should contact our office immediately @ [phone] and ask to be transferred to the General Surgery department. Madelaine Hobson PA-C 06/09/2018 9:42 PM Signed FOLLOW UP VISIT - ENDOSCOPY NAME: Mirza Selam [facility] NO.: [id number] DATE OF SERVICE: 06/04/2018 : 1990 REFERRING PHYSICIAN: MD Elodia HAMMERoziel is a patient I am following for with Dr. Hoang for postprandial vomiting and diarrhea. Per my HANDP from 05/22/18: The patient is a 28 year old female referred for surgical evaluation. Patient notes a 2-week history of postprandial left upper quadrant abdominal discomfort with associated vomiting and/or watery diarrhea usually within 10 minutes after eating. Describes pain as cramping in nature. Denies radiation of the pain. She notes this regardless of type of food and states has had this evening with drinking water or gatorade. Denies blood in stools or black stools. She states she experiences the above symptoms only in association with eating, not between meals. She denies any sick contacts, changes in diet or recent travel. ? Patient was recently evaluated in the emergency department at [facility] for the above complaints, was treated with fluids and antiemetics and released. She was then evaluated by her PCP for the above complaints on 05/21/18. She had labwork as well as a CT abdomen/pelvis ordered which are reviewed: ? Impression ? IMPRESSION: Left adnexal mass can be further evaluated by ultrasound. Fatty liver. Slightly dilated common bile duct can be correlated with hepatic function blood tests. Nonobstructing left intrarenal calculi Plastic Card Grader Cardroom: XIAO ? Transcribe Date/Time: May 21 2018 ?3:13P Dictated by : STACY BARLOW MD This examination was interpreted and the report reviewed and electronically signed by: STACY BARLOW MD on May 21 2018 ?3:24PM ?EST Results-Findings ? * * *Final Report* * * DATE OF EXAM: May 21 2018 ?2:40PM ? [facility] ? 0530 ?- ?CT ABD/PEL W IVCON ?/ PROCEDURE REASON: Left upper quadrant pain ?? ? * * * * Physician Interpretation * * * * ?EXAMINATION: ?CT ABDOMEN AND PELVIS WITH IV CONTRAST CLINICAL HISTORY: Left upper quadrant abdominal pain, vomiting TECHNIQUE: CT of the abdomen and pelvis was performed using standard technique, scanning from just above the dome of the diaphragm to the symphysis pubis. MQ: ?CTAP_3 Contrast: IV: ?150 ml of Omnipaque 300 Oral: ?50 ml of 50ML Omnipaque [address] Radiation dose: Integrated Dose-length product (DLP) for this visit = ? 1199 mGy*cm. CT Dose Reduction Employed: Automated exposure control(AEC) and iterative recon COMPARISON: None. RESULT: Liver: No mass. Generalized fatty infiltration. Ill-defined area of hypodensity in the medial segment of the left lobe adjacent to the falciform ligament is thought to be focal more marked steatosis. Biliary: Common duct is dilated up to 14 mm in the corey hepatis, which can sometimes be seen status post cholecystectomy. No intrahepatic biliary dilatation. Common duct does not appear dilated more distally within the head of the pancreas. Spleen: No mass. No splenomegaly. Pancreas: No mass or duct dilation. Adrenals: No mass. Kidneys: No hydronephrosis or mass. 2 punctate densities in the lower pole hilar area of the left kidney are thought to be nonobstructing collecting system calculi. GI tract: No dilation or wall thickening. Appendix appears normal Lymph nodes: No abdominal or pelvic lymphadenopathy. Mesentery/Peritoneum: No ascites or mass. Retroperitoneum: No mass. Vasculature: ?The celiac axis and SMA are patent. The portal vein and branches, splenic vein, SMV, and hepatic veins are patent. Pelvis: 4 cm hypodense left adnexal mass may be a cyst. Bones/Soft Tissues: Intact Lower thorax: Clear ? ? Component Latest Ref Rng AND Units 05/21/2018 WBC 3.70 - 11.00 k/uL 11.06 (H) RBC 3.90 - 5.20 m/uL 4.39 Hemoglobin 11.5 - 15.5 g/dL 14.0 Hematocrit 36.0 - 46.0 % 40.7 MCV 80.0 - 100.0 fL 92.7 MCH 26.0 - 34.0 pG 31.9 MCHC 30.5 - 36.0 g/dL 34.4 RDW-CV 11.5 - 15.0 % 12.9 Platelet Count 150 - 400 k/uL 351 MPV 9.0 - 12.7 fL 9.5 Neut% % 60.3 Abs Neut (ANC) 1.45 - 7.50 k/uL 6.67 Lymph% % 31.0 Abs Lymph 1.00 - 4.00 k/uL 3.43 Worth% % 6.7 Abs Worth <0.87 k/uL 0.74 Eosin% % 1.7 Abs Eosin <0.46 k/uL 0.19 Baso% % 0.3 Abs Baso <0.11 k/uL 0.03 Nucleated Reds 0 /100 WBC 0.0 Absolute nRBC <0.01 k/uL <0.01 Diff Type ? Auto Diff Protein, Total 6.3 - 8.0 g/dL 6.9 Albumin 3.9 - 4.9 g/dL 4.4 Calcium 8.5 - 10.2 mg/dL 9.3 Bilirubin, Total 0.2 - 1.3 mg/dL 1.2 Alkaline Phosphatase 34 - 123 U/L 80 AST 13 - 35 U/L 25 Glucose 74 - 99 mg/dL 112 (H) BUN 7 - 21 mg/dL 9 Creatinine 0.58 - 0.96 mg/dL 0.49 (L) Sodium 136 - 144 mmol/L 139 Potassium 3.7 - 5.1 mmol/L 3.7 Chloride 97 - 105 mmol/L 103 CO2 22 - 30 mmol/L 23 Anion Gap mmol/L 13 ALT 7 - 38 U/L 29 eGFR- ? >60 eGFR-All Other Races . >60 GLUCOSE UA (POCT) Negative mg/dL Negative BILIRUBIN UA (POCT) Negative Negative KETONE UA (POCT) Negative mg/dL Trace SPECIFIC GRAVITY UA (POCT) 1.005 - 1.030 >=1.030 HEMOGLOBIN/BLOOD UA (POCT) Negative Trace-intact (A) PH UA (POCT) 4.5 - 8.0 5.5 PROTEIN UA (POCT) Negative mg/dL Negative UROBILINOGEN UA (POCT) Normal E.U./dL 0.2 NITRITE UA (POCT) Negative Negative LEUKOCYTES UA (POCT) Negative Negative COLOR UA (POCT) ? Other CLARITY UA (POCT) ? Slightly Cloudy H. pylori IgG, Qualitative Negative Negative H pylori Ab, IgG U/mL <0.4 H. pylori IgA, Qualitative Negative Negative H pylori Ab, IgA UNITS 11 Specimen Request ? Specimen received in preservative Culture ? 50,000 - <100,000 CFU/ml . . . ? ? Patient referred for surgical evaluation and possible endoscopy. Mirza has not undergone prior endoscopy. She denies any family history of colon cancer. Patient's past medical history is significant for asthma, gallstone pancreatitis, type II diabetes mellitus. Past surgical history is significant for cholecystectomy, two C-sections, right salpingo-oophorectomy. She denies any chest pain or shortness of breath. Denies any problems with sedation in the past. Dr. Hoang performed upper and lower endoscopy with biopsies on 05/28/18. The patient was found to have normal appearing colon, esophagus, stomach, normal examined portions of duodenum and ileum, with no obvious abnormalities on upper or lower endoscopy. Multiple biopsies were taken for further evaluation based on patient's clinical history. Pathology demonstrated: FINAL DIAGNOSIS 1. Jejunum, biopsy (A) - Small bowel mucosa with no diagnostic abnormality. ? ? 2. Stomach, antrum, biopsy (B) - Gastric antral-type mucosa with mild reactive gastropathy. ? 3. Distal esophagus, biopsy (C) - Gastric cardia-type mucosa with mild chronic inflammation, negative for intestinal metaplasia or dysplasia. - Squamous mucosa with mild reactive epithelial changes. ? ? 4. Mid esophagus, biopsy (D) - Squamous mucosa with no diagnostic abnormality. ? ? 5. Terminal ileum and cecum, biopsy (E) - Fragments of small bowel and colonic mucosa with no diagnostic abnormality. ? 6. Random descending colon, biopsy (F) - Colonic mucosa with no diagnostic abnormality. JEL/dss 05/29/2018 COMMENT 1. Histologic changes of celiac sprue are not identified. No?parasites are seen. 2. No Helicobacter pylori organisms are identified. 3, 4. Histologic changes of eosinophilic esophagitis are not identified. 5, 6. There is no evidence of chronic or active colitis, including lymphocytic or collagenous colitis. The patient notes no improvement in her abodminal complaints since the procedure. VITALS: Blood pressure 120/76, weight 126.6 kg (279 lb). General: patient is alert, cooperative, pleasant and in no acute distress On examination, the abdomen is benign. Assessment IMPRESSION: postprandial left-sided abdominal discomfort, vomiting and loose stools of unclear etiology. ?dietary intolerance vsmotility disorder. Unremarkable upper and lower endoscopy PLAN: I have reviewed my findings with Dr. Hoang The operative findings and pathology report were reviewed with the patient. The patient has had the opportunity to ask questions and have questions answered -Dietary and lifestyle modifications as discussed, trial of PPI -Food diary -[place] diet, small meals until symptoms improving -Referral to GI for further evaluation-information forwarded to medical staff services manager to arrange and contact patient with appointment Patient verbalized understanding of all above and is agreeable to this plan Diagnoses: (R10.9) Left lateral abdominal pain (primary encounter diagnosis) (R19.4) Change in bowel habits (R10.10) Upper abdominal pain (R11.2) Non-intractable vomiting with nausea, unspecified vomiting type I spent 20 minutes in the visit, with more than 50% of the total [id number] time of the visit in counseling / coordination of care. Madelaine Hobson PA-C Referring Provider: SUNNY WELLS [[id number]] Allergies As of Date: 06/04/2018 Noted Allergy Reaction ASPIRIN 09/18/2005 4 - Hives 8 - GI Upset paper tape [Other] 06/26/2005 2 - Rash 7 - Swelling 9 - Itching Comments: Area gets very red also PENICILLINS 05/11/2013 4 - Hives TRAMADOL 04/14/2018 14 - Other: See Comments Comments: Tachycardia Date Reviewed: 06/04/2018 Reviewed by: Madelaine Hobson (Pa) - Fully Assessed Reason for Visit: Post Op [174] Primary Visit Diagnosis:Left lateral abdominal pain [R10.9] Other Visit Diagnoses:Change in bowel habits [R19.4] Upper abdominal pain [R10.10] Non-intractable vomiting with nausea, unspecified vomiting type [R11.2] Order(s):CONSULT TO GASTROENTEROLOGY [7718] Order #: [id number]: [address] (PROTONIX) 40 mg tabletTake 1 tablet by mouth once daily.Disp: 30 tabletRfl: 3 Prescriptions as of 06/04/2018 Sig: PANTOPRAZOLE 40 MG TABLET,DEL* Take 1 tablet by mouth once d* ONDANSETRON HCL 8 MG TABLET Take 1 tablet by mouth every * MELOXICAM 15 MG TABLET Take 1 tablet by mouth daily * PEN NEEDLE, DIABETIC 31 GAUGE* One daily with insulin LIRAGLUTIDE 0.6 MG/0.1 ML (18* Inject 1.8 mg subcutaneously * PRAVASTATIN 20 MG TABLET Take 1 tablet by mouth once d* TOPIRAMATE 25 MG SPRINKLE CAP* Take 1 capsule by mouth daily* ERGOCALCIFEROL (VITAMIN D2) 5* Take 1 capsule by mouth once * BLOOD SUGAR DIAGNOSTIC STRIPS Use as directed 4 times daily. METFORMIN ER 500 MG TABLET,EX* TAKE TWO TABLETS BY MOUTH WIT* INSULIN GLARGINE (U-100) 100 * Inject 40 Units subcutaneousl* COMPOUNDED PRESCRIPTION One Touch meter kit. LANCETS Test blood sugar(s) 5 times * FAMOTIDINE 20 MG TABLET Take 1 tablet by mouth daily * ALCOHOL SWABS Use as directed up to 5 times* EMPTY CONTAINER 1 Can twice daily. COMPOUNDED PRESCRIPTION 1 Each as needed. Sharps Cont* EMPTY CONTAINER 1 Container as needed (to dis* LANCETS Use as instructed Problem List As Of Date 06/04/2018 Noted Resolved Type 2 diabetes mellitus (HCC) [E11.9] INVALID FOR* More... More... More... Obesity, unspecified [E66.9] INVALID FOR* More... History of flank pain [Z87.898] INVALID FOR*06/21/2014 More... More... More... History of depression [Z86.59] INVALID FOR* More... More... More... More... More... More... More... Depression [F32.9] INVALID FOR* Pain in right hip [M25.551] INVALID FOR* More... Chronic pain of right hip [M25.551, G89.29] INVALID FOR* More... Nausea and vomiting [R11.2] INVALID FOR* More... Other instructions from your clinician: -Stool cultures -Referral to GI The following instructions are important for you related to your office visit today with the [facility]. INSTRUCTIONS FOLLOWING A NORMAL COLONOSCOPY I discussed with you the findings of your colonoscopy. Since there were no worrisome abnormalities, I recommend you undergo repeat endoscopic screening at age 47. This is the current recommendation for colon cancer screening. If you note bleeding, change in bowel habits, or other suspicious colon related symptoms before that time, those symptoms should be evaluated as necessary. and INSTRUCTIONS FOR PEPTIC ULCER DISEASE - ESOPHAGITIS I discussed with you the findings of your upper endoscopy. Your upper endoscopy demonstrated esophagitis Esophagitis may be a form of peptic irritation, with acid moving from the stomach to the esophagus (gastroesophageal reflux) Factors that increase acid production include smoking and stress. If you smoke, stopping smoking will often cure these issues without needing other medications. Over the counter medications including antiacids and acid reducing medications including H2 blockers (Zantac and the like) and proton pump inhibitors (prilosec, prevacid and the like) neutralize or prevent acid production. Prescription strength proton pump inhibitors (PPIs) may be necessary if your symptoms persist. Carafate may be added to PPI treatment in refractory cases. Avoiding smoking, alcohol and antiinflammatory medications are important in the successful treatment of reflux esophagitis and peptic diseases. Other factors that contribute to GERD and esophagitis are being overweight, eating large meals before laying down and certain foods. Weight loss will help improve many GERD complaints. Remaining upright after eating large meals and having a small supper will also help symptoms. Avoiding food that contribute to reflux - chocolate, caffeine, cheddar cheese may also help. Follow up upper endoscopy may be recommended to assure healing of the esophagus. New or worsening symptoms such are epigastric pain, burning, difficulty swallowing or food sticking should be relayed to your physician. Feeling full early after eating, or black, tarry, foul smelling stools are also worrisome. If you have any difficulties or concerns, you should contact our office immediately. If you note any additional difficulties, questions, or concerns, you should contact our office immediately @ [phone] and ask to be transferred to the General Surgery department. Prescriptions ordered this encounter Disp Refills Start End PANTOPRAZOLE 40 MG TABLET,DELAYED RE* 30 t* 3 06/04/2018 Route: ORAL Sig: Take 1 tablet by mouth once daily. Medications Discontinued During This Encounter pantoprazole DR (PROTONIX) 40 mg tab* 30 t* 3 10/17/2017 06/04/2018 Route: ORAL Sig: Take 1 tablet by mouth once daily. Disc: Reason for discontinue is not on file. Follow-up and Disposition History Recorded Encounter Status:Closed by MADELAINE HOBSON PA-C on 06/09/18 HEMOGLOBIN A1C Collected: 06/02/2018 Status: F Source: [place] 9:50 AM [facility] MAIN CAMP[facility] REPOSITORY TYPE CODE TESTS RESULT OUT OF REFERENCE UNITS RANGE LAB HGBA1C 4.3-5.6 % High Hemoglobin A1c 5.7 Result Comment: [place] [employer] guidelines indicate that patients with HgbA1c in the range 5.7-6.4% are at increased risk for development of diabetes, and intervention by lifestyle modification may be beneficial. HgbA1c greater or equal to 6.5% is considered diagnostic of diabetes. LAB HBA0 mg/dL Est. Average Glucose 117 Result Comment: eAG: (Estimated average glucose) is a calculated value from HgbA1c and is client care representative of the average blood glucose level in the last 2-3 month period. Performed By: #### HBA1C #### [facility] [address] [place], [place] [address] ANES POST Observed: 05/28/2018 Status: COMPLETED Source: [place] 3:05 PM [facility] OTHER CAMPUS REPOSITORY HNO ID: [id number] Author: Jonathan Pascal Service: Anesthesiology Author Type: Anesthesiologist Type: Anesthesia PostOp Filed: 05/28/2018 3:05 PM Note Text: POST ANESTHESIA EVALUATION NOTE SERVICE DATE: 05/28/2018 SERVICE TIME: 15.05 : 1990 Vitals: 05/28/18 1231 05/28/18 1349 Temp: 36.8 ?C (98.2 ?F) 36.4 ?C (97.5 ?F) 05/28/18 1349 05/28/18 1400 05/28/18 1415 05/28/18 1430 BP: 120/59 125/75 119/62 111/56 05/28/18 1349 05/28/18 1400 05/28/18 1415 05/28/18 1430 Pulse: 100 88 82 88 05/28/18 1349 05/28/18 1400 05/28/18 1415 05/28/18 1430 Resp: 14 13 16 16 05/28/18 1349 05/28/18 1400 05/28/18 1415 05/28/18 1430 SpO2: 99% 100% 100% 100% Validated Vital Signs: Yes POST ANES STATUS: No apparent anesthetic complications. The patient is appropriately hydrated with stable respiratory and cardiovascular status. Patient has safe and adequate airway control. The patient has appropriate pain relief and no significant post operative nausea or vomiting. The patient has achieved baseline mental status. Intra-Operative Events: No Significant Anesthesia Events Further assessment by Anesthesia Service: None Other Remarks: SIGNATURE: Jonathan Pascal MD PATIENT NAME: Mirza Daigle DATE: May 28, 2018 TIME: 3:05 PM PAGER/CONTACT #: anesthesia PT ED Observed: 05/28/2018 Status: COMPLETED Source: [place] 2:55 PM [facility] REPOSITORY HNO ID: [id number] Author: Binh Vidal RN Service: Nursing Author Type: Registered Nurse Type: Patient Education Filed: 05/28/2018 2:56 PM Note Text: PATIENT EDUCATION TOPIC: PROCEDURE / SURGERY: Post Procedure Teaching: PATIENT NAME: Mirza Daigle PATIENT LOCATION: [facility] READINESS TO LEARN COGNITIVE ABILITY: Alert and oriented MOTIVATION TO LEARN: Interested FAMILY SUPPORT: Moderate - Family present but overwhelmed INSTRUCTION PROVIDED TO: Patient PATIENT LEARNS BEST BY: Individual Instruction Verbal Instruction FACTORS AFFECTING LEARNING: None PHYSICAL LIMITATIONS AFFECTING LEARNING: None LEARNING RESPONSE DIAGNOSIS: ADULT: PATIENT/FAMILY RESPONSE: Verbalizes understanding of: METHOD OF INSTRUCTION: Individual instruction Verbal instruction FOLLOW-UP PLAN: Patient instructed to call with any further issues Follow-up with Primary Care INSTRUCTIONAL AIDS USED: NA SUPPLEMENTAL MATERIAL PROVIDED TO PATIENT: None REFERRAL (RECOMMENDATION): None Electronically Signed By: Binh Vidal RN SURGICAL PATHOLOGY Observed: 05/28/2018 Status: F Source: [place] 2:15 PM CLINIC OTHER CAMPUS REPOSITORY Specimen originated from [facility] Specimen #: [id number] Submitting Physician: ISABELA HOANG MD FINAL DIAGNOSIS 1. Jejunum, biopsy (A) - Small bowel mucosa with no diagnostic abnormality. 2. Stomach, antrum, biopsy (B) - Gastric antral-type mucosa with mild reactive gastropathy. 3. Distal esophagus, biopsy (C) - Gastric cardia-type mucosa with mild chronic inflammation, negative for intestinal metaplasia or dysplasia. - Squamous mucosa with mild reactive epithelial changes. 4. Mid esophagus, biopsy (D) - Squamous mucosa with no diagnostic abnormality. 5. Terminal ileum and cecum, biopsy (E) - Fragments of small bowel and colonic mucosa with no diagnostic abnormality. 6. Random descending colon, biopsy (F) - Colonic mucosa with no diagnostic abnormality. JEL/dss 05/29/2018 COMMENT 1. Histologic changes of celiac sprue are not identified. No parasites are seen. 2. No Helicobacter pylori organisms are identified. 3, 4. Histologic changes of eosinophilic esophagitis are not identified. 5, 6. There is no evidence of chronic or active colitis, including lymphocytic or collagenous colitis. Cesario Baird M.D. (Electronic Signature) SPECIMEN SUBMITTED A: JEJUNUM, BIOPSY B: ANTRAL, BIOPSY R/O H. PYLORI C: DISTAL ESOPHAGUS, BIOPSY D: MID ESOPHAGUS, BIOPSY E: TERMINAL ILEUM AND CECAL, BIOPSY F: RANDOM DESCENDING COLON, BIOPSY CLINICAL DATA NAUSEA AND VOMITING, DIARRHEA, R/O H. PYLORI, LMP: NA GROSS DESCRIPTION A. Received in formalin is one piece of hdz, soft tissue measuring 0.3 x 0.3 x 0.2 cm. Totally submitted in one cassette. B. Received in formalin is one piece of hdz, soft tissue measuring 0.3 x 0.2 x 0.2 cm. Totally submitted in one cassette. C. Received in formalin is one piece of hdz, soft tissue measuring 0.3 x 0.2 x 0.2 cm. Totally submitted in one cassette. D. Received in formalin is one piece of hdz-white, soft tissue measuring 0.3 x 0.2 x 0.1 cm. Totally submitted in one cassette. E. Received in formalin are two pieces of hdz, soft tissue aggregating to 0.6 x 0.3 x 0.2 cm. Totally submitted in one cassette. F. Received in formalin are two pieces of hdz, soft tissue aggregating to 0.3 x 0.1 x <0.1 cm. Totally submitted in one cassette. Gross examination performed at [facility], [address] [place] [address] FF 05/28/2018 7:15:05 PM Date of Report: 05/29/2018 Date of Procedure: 05/28/2018 Date of Receipt: 05/28/2018 Submitted by: ISABELA HOANG MD Location: [place] Diagnostic interpretation performed at [facility], [address] [place] [address]. Performed By: #### PATHS #### [place] [address] [phone] HISTORY PHYSICAL Observed: 05/28/2018 Status: COMPLETED Source: [place] 1:09 PM CLINIC OTHER CAMPUS REPOSITORY HNO ID: [id number] Author: Isabela Hoang Service: General Surgery Author Type: Physician Type: HANDP Filed: 05/28/2018 1:09 PM Note Text: HISTORY AND PHYSICAL ? Mirza Daigle 1990 ? REFERRING PHYSICIAN: Sunny Wells MD ? CHIEF COMPLAINT: Consult ? HPI: The patient is a 28 year old female referred for surgical evaluation. Patient notes a 2-week history of postprandial left upper quadrant abdominal discomfort with associated vomiting and/or watery diarrhea usually within 10 minutes after eating. Describes pain as cramping in nature. Denies radiation of the pain. She notes this regardless of type of food and states has had this evening with drinking water or gatorade. Denies blood in stools or black stools. She states she experiences the above symptoms only in association with eating, not between meals. She denies any sick contacts, changes in diet or recent travel. ? Patient was recently evaluated in the emergency department at [facility] for the above complaints, was treated with fluids and antiemetics and released. She was then evaluated by her PCP for the above complaints on 05/21/18. She had labwork as well as a CT abdomen/pelvis ordered which are reviewed: ? Impression ? IMPRESSION: Left adnexal mass can be further evaluated by ultrasound. Fatty liver. Slightly dilated common bile duct can be correlated with hepatic function blood tests. Nonobstructing left intrarenal calculi Plastic Card Grader Cardroom: XIAO ? Transcribe Date/Time: May 21 2018 ?3:13P Dictated by : STACY BARLOW MD This examination was interpreted and the report reviewed and electronically signed by: STACY BARLOW MD on May 21 2018 ?3:24PM ?EST Results-Findings ? * * *Final Report* * * DATE OF EXAM: May 21 2018 ?2:40PM ? [facility] ? 0530 ?- ?CT ABD/PEL W IVCON ?/ PROCEDURE REASON: Left upper quadrant pain ?? ? * * * * Physician Interpretation * * * * ?EXAMINATION: ?CT ABDOMEN AND PELVIS WITH IV CONTRAST CLINICAL HISTORY: Left upper quadrant abdominal pain, vomiting TECHNIQUE: CT of the abdomen and pelvis was performed using standard technique, scanning from just above the dome of the diaphragm to the symphysis pubis. MQ: ?CTAP_3 Contrast: IV: ?150 ml of Omnipaque 300 Oral: ?50 ml of 50ML Omnipaque [address] Radiation dose: Integrated Dose-length product (DLP) for this visit = ? 1199 mGy*cm. CT Dose Reduction Employed: Automated exposure control(AEC) and iterative recon COMPARISON: None. RESULT: Liver: No mass. Generalized fatty infiltration. Ill-defined area of hypodensity in the medial segment of the left lobe adjacent to the falciform ligament is thought to be focal more marked steatosis. Biliary: Common duct is dilated up to 14 mm in the corey hepatis, which can sometimes be seen status post cholecystectomy. No intrahepatic biliary dilatation. Common duct does not appear dilated more distally within the head of the pancreas. Spleen: No mass. No splenomegaly. Pancreas: No mass or duct dilation. Adrenals: No mass. Kidneys: No hydronephrosis or mass. 2 punctate densities in the lower pole hilar area of the left kidney are thought to be nonobstructing collecting system calculi. GI tract: No dilation or wall thickening. Appendix appears normal Lymph nodes: No abdominal or pelvic lymphadenopathy. Mesentery/Peritoneum: No ascites or mass. Retroperitoneum: No mass. Vasculature: ?The celiac axis and SMA are patent. The portal vein and branches, splenic vein, SMV, and hepatic veins are patent. Pelvis: 4 cm hypodense left adnexal mass may be a cyst. Bones/Soft Tissues: Intact Lower thorax: Clear ? ? Component Latest Ref Rng AND Units 05/21/2018 WBC 3.70 - 11.00 k/uL 11.06 (H) RBC 3.90 - 5.20 m/uL 4.39 Hemoglobin 11.5 - 15.5 g/dL 14.0 Hematocrit 36.0 - 46.0 % 40.7 MCV 80.0 - 100.0 fL 92.7 MCH 26.0 - 34.0 pG 31.9 MCHC 30.5 - 36.0 g/dL 34.4 RDW-CV 11.5 - 15.0 % 12.9 Platelet Count 150 - 400 k/uL 351 MPV 9.0 - 12.7 fL 9.5 Neut% % 60.3 Abs Neut (ANC) 1.45 - 7.50 k/uL 6.67 Lymph% % 31.0 Abs Lymph 1.00 - 4.00 k/uL 3.43 Worth% % 6.7 Abs Worth <0.87 k/uL 0.74 Eosin% % 1.7 Abs Eosin <0.46 k/uL 0.19 Baso% % 0.3 Abs Baso <0.11 k/uL 0.03 Nucleated Reds 0 /100 WBC 0.0 Absolute nRBC <0.01 k/uL <0.01 Diff Type ? Auto Diff Protein, Total 6.3 - 8.0 g/dL 6.9 Albumin 3.9 - 4.9 g/dL 4.4 Calcium 8.5 - 10.2 mg/dL 9.3 Bilirubin, Total 0.2 - 1.3 mg/dL 1.2 Alkaline Phosphatase 34 - 123 U/L 80 AST 13 - 35 U/L 25 Glucose 74 - 99 mg/dL 112 (H) BUN 7 - 21 mg/dL 9 Creatinine 0.58 - 0.96 mg/dL 0.49 (L) Sodium 136 - 144 mmol/L 139 Potassium 3.7 - 5.1 mmol/L 3.7 Chloride 97 - 105 mmol/L 103 CO2 22 - 30 mmol/L 23 Anion Gap mmol/L 13 ALT 7 - 38 U/L 29 eGFR- ? >60 eGFR-All Other Races . >60 GLUCOSE UA (POCT) Negative mg/dL Negative BILIRUBIN UA (POCT) Negative Negative KETONE UA (POCT) Negative mg/dL Trace SPECIFIC GRAVITY UA (POCT) 1.005 - 1.030 >=1.030 HEMOGLOBIN/BLOOD UA (POCT) Negative Trace-intact (A) PH UA (POCT) 4.5 - 8.0 5.5 PROTEIN UA (POCT) Negative mg/dL Negative UROBILINOGEN UA (POCT) Normal E.U./dL 0.2 NITRITE UA (POCT) Negative Negative LEUKOCYTES UA (POCT) Negative Negative COLOR UA (POCT) ? Other CLARITY UA (POCT) ? Slightly Cloudy H. pylori IgG, Qualitative Negative Negative H pylori Ab, IgG U/mL <0.4 H. pylori IgA, Qualitative Negative Negative H pylori Ab, IgA UNITS 11 Specimen Request ? Specimen received in preservative Culture ? 50,000 - <100,000 CFU/ml . . . ? ? Patient referred for surgical evaluation and possible endoscopy. Mirza has not undergone prior endoscopy. She denies any family history of colon cancer. Patient's past medical history is significant for asthma, gallstone pancreatitis, type II diabetes mellitus. Past surgical history is significant for cholecystectomy, two C- sections, right salpingo-oophorectomy. She denies any chest pain or shortness of breath. Denies any problems with sedation in the past. ? ? PAST MEDICAL HISTORY PAST MEDICAL HISTORY Diagnosis Date - Anemia ? ? WITH 2ND - Asthma ? ? since 14 years old, inhaler PRN - Complex ovarian cyst - Needs follow up imaging 06/09/2013 ? 06/09/2013 An ultrasound was done 06/04/2013 that revealed a 6w5d fetus with DELFINA of 01/24/14. There is fluid seen adjacent to the gestastional sac possible subchorionic hemorrhage. the left ovary is within normal limits but the right ovary contains a 3.8 x 3 x 3.3 cm moderately complex cyst. TKRN 01/15/2014 - Confirmed 9 x 7 x 2.5 cm multi-loculated cyst at the time of . Needs outpatient follow up via [facility]. 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 ? insulin controlled - Family history of defects 06/09/2013 ? 06/09/2013Patient's mother born with spina bifida. Patient's brother born with a hole in his heart. Patient has another brother that was born with Down syndrome. Patient and her brother born with a congenital hip deformity. Patient has had multiple corrective surgeries for the hip deformity.TKRN - Family history of Down syndrome 06/21/2014 ? Brother with DS - Family history of spina bifida 06/21/2014 ? Mom with Spina bifida in wheelchair - Gall stones 2006 ? Gall bladder removed - History of asthma 06/09/2013 ? 06/09/2013Patient has a history of asthma. She uses an albuterol inhaler when necessary. TKRN - History of 06/09/2013 ? 06/09/2013 Pt had 3 previous C sections. - History of kidney stones ? - Nausea/vomiting in 06/09/2013 ? 06/09/2013She states she has nausea . Advised patient to call/come in if she has persistent vomiting or if her blood sugars were less than 70. TKRN - Ovarian cyst during 07/21/2014 ? 07/21/14: see NT ultrasound: Right ovarian cyst 6cm - Pain in joint, pelvic region and thigh 01/10/2006 - Pancreatitis ? - Patient requested diagnostic testing 06/09/2013 ? 06/09/2013 Patient desires early screening in with sequential testing. TKRN - depression ? - Prior macrosomia, antepartum 06/21/2014 - Short interval between pregnancies complicating , antepartum 06/09/2013 ? 06/09/2013Nikki delivered her previous child August 14, 2012.TKRN - Type 2 diabetes mellitus (HCC) 05/22/2013 - Type 2 diabetes mellitus complicating , antepartum 05/28/2013 ? 06/09/2013Nikki has a history of diabetes diagnosed 4 years ago. She was unaware that she was until she went into labor with her first . With her second she started insulin during the second trimester. She was referred to Dr. Tejada at [facility] for poorly controlled diabetes on metformin alone. She has since started insulin and has an appointment today with Dr. Guevara for followup. She has been keeping track of her blood sugars and presents with a journal today and these blood sugars are copy off and given to Dr. Guevara for his review. I have discussed with the patient the importance of good control of her blood sugars during and keeping a blood sugar log for review by the Doctor. She is reminded that she is to send her blood sugars in weekly to Dr. Guevara and she is to call sooner than a week if she has persistently high, greater the 180, or low blood sugars, less than 70. She is provided with a blood sugar log today. She has not had a diabetic foot or eye exam rece ? ? PAST SURGICAL HISTORY PAST SURGICAL HISTORY Procedure Laterality Date - DELIVERY ONLY ? ? ? , low transverse x3 - DELIVERY ONLY ? 01/19/15 ? , low transverse - IANDD ABSC; SMPL OR SGL ? 05/2013 ? cyst on left upper chest - LAPAROSCOPIC CHOLEYCYSTECTOMY ? ? ? Cholecystectomy, lap - PAST SURGICAL HISTORY OF ? ? ? tubes in ears per Dr Crockett at [facility] - PAST SURGICAL HISTORY OF ? ? ? Tonsils and Adenoids removed per Dr Crockett at [facility] - PAST SURGICAL HISTORY OF ? ? ? [address] Marroquin at [facility] and one by Dr. Camacho in [place] - REMOVAL OF OVARY/TUBE(S) ? 01/19/15 ? Salpingo-oophorectomy, right ovarian mass ? ? ? CURRENT MEDICATIONS ? Current Outpatient Prescriptions: Alcohol Swabs padm Use as directed up to 5 times daily DM: yes Insulin: yes DX: E.11.9 blood sugar diagnostic (FREESTYLE LITE STRIPS) test strip Use as directed 4 times daily. COMPOUNDED PRESCRIPTION 1 Each as needed. Sharps Container. Dx:Diabetes mellitus, antepartum (648.03) COMPOUNDED PRESCRIPTION One Touch meter kit. enteric contrast (will be provided with radiology test) For CT ABD/PEL W IVCON Routine order Administer, As Directed One Time Only, via Oral, Rectal, both Oral and Rectal, Enteric Tube, Stoma or Indwelling Catheter, Enteric Contrast as designated per enteric contrast guidelines ergocalciferol, vitamin D2, (DRISDOL) 50,000 unit capsule Take 1 capsule by mouth once each week. famotidine (PEPCID) 20 mg tablet Take 1 tablet by mouth daily at bedtime. insulin glargine (BASAGLAR KWIKPEN U-100 INSULIN) 100 unit/mL (3 mL) inpn Inject 40 Units subcutaneously daily at bedtime. insulin needles, DISPOSABLE, (PEN NEEDLE) 31 gauge x 5/16 ndle One daily with insulin iv contrast (will be provided with radiology test) CT ABD/PEL -Inject, intravenously, once for 1 dose.No IV access, insert saline lock prior to the beginning of sedation, infusion, injection of imaging exam. Discontinue saline lock post exam. If Pt. has a central line or IVAD, may access for administration according to line specific nursing protocol. Once exam is complete flush line and de-access according to line specific nursing protocol in the CT contrast administration guidelines link. Lancets (ONE TOUCH SURESOFT LANCING DEV) lancets Use as instructed Lancets (ONETOUCH ULTRASOFT LANCETS) lancets Test blood sugar(s) 5 times daily. Dx: Type 2 DM - Controlled E11.9 , Insulin: yes liraglutide (VICTOZA) 0.6 mg/ 0.1 ml subcutaneous pen injector Inject 1.8 mg subcutaneously once daily. meloxicam (MOBIC) 15 mg tablet Take 1 tablet by mouth daily with food. metFORMIN ER (GLUCOPHAGE XR) 500 mg 24 hr tablet TAKE TWO TABLETS BY MOUTH WITH BREAKFAST AND TWO TABLETS WITH SUPPER ondansetron (ZOFRAN) 8 mg tablet Take 1 tablet by mouth every 8 hours as needed. Oral Medication Containers (BD SHARPS PRIVATE BANKER) misc 1 Container as needed (to disopse of insulin needles). Oral Medication Containers (SHARPS CONTAINER) misc 1 Can twice daily. pantoprazole DR (PROTONIX) 40 mg tablet Take 1 tablet by mouth once daily. pravastatin (PRAVACHOL) 20 mg tablet Take 1 tablet by mouth once daily. topiramate (TOPAMAX) 25 mg capsule Take 1 capsule by mouth daily at bedtime. ? No current facility-administered medications for this visit. ? ALLERGIES: Aspirin; Paper Tape [Other]; Penicillins; Tramadol ? PERSONAL HISTORY: SOCIAL HISTORY Social History Marital status: Single Spouse name: Years of education: 10 Number of children: 2 ? Occupational History Occupation Employer Comment HOMEMAKER ? Social History Main Topics Smoking status: Never Smoker ? Smokeless tobacco: Never Used Comment: mom's fiance smokes outside Alcohol use: No Drug use: No Sexual activity: Yes Partners with: Male ? ? FAMILY HISTORY: FAMILY HISTORY FAMILY HISTORY Problem Relation Age of Onset - Diabetes Mother ? - Hypertension Mother ? - other (spina bifida) Mother ? - Heart Father ? - Hypertension Father ? - Cancer Maternal Grandmother ? - Alcohol/Drug Maternal Grandmother ? - Heart Paternal Grandmother ? - Aneurysm Paternal Grandmother ? - Stroke Brother ? - other (Down Syndrome) Brother ? - other (autism) Brother ? ? step brother - seizures and cerebral palsy also - other (Open family hx of Neural Tube Defect) Brother ? ? ? REVIEW OF SYMPTOMS: The review of systems data was entered by the nurse and reviewed by me ? Nursing Notes: Patricia Arteaga RN 05/22/2018 3:27 PM Signed REVIEW OF SYSTEMS: General: The patient notes fatigue, denies weight loss, denies weight gain, denies feeling hot, and denies feelings of cold. Eyes: The patient denies glaucoma, denies eye injury/surgery, wears glasses or contacts. Ear/Nose/Throat: The patient denies allergies, denies hayfever, denies ear infections, and notes bloody noses. Cardiovascular: The patient denies chest pain, denies heart disease, denies high blood pressure,denies cardiac stent, denies prior heart attack, denies irregular heart beat, denies high cholesterol, denies poor circulation, denies heart failure, other cardiac issues, denies claudication, denies cold feet, denies peripheral arterial stent. Respiratory: The patient denies tuberculosis, denies pneumonia, denies frequent cough, denies pulmonary embolism, denies shortness of breath, and denies coughing up blood. Gastrointestinal: The patient denies difficulty swallowing, notes acid reflux, notes ulcers, notes vomiting, denies jaundice/hepatitis, notes gallbladder problems, denies black or tarry stools, denies hemorrhoids, denies bleeding from rectum, denies diverticulitis, denies constipation, notes diarrhea, denies loss of stool control, and denies hernias. Kidney/Bladder: The patient notes kidney stones, denies urine infections, and denies bloody urine. Skin: The patient denies a history of skin cancer, denies bleeding/changing moles, and denies a history of skin rash. Neurologic: The patient denies a history of epilepsy/convulsions, denies headaches, denies head/spinal injuries, and denies stroke/TIA. Psychiatric: The patient denies psychiatric medications, denies depression, and denies voices, denies substance abuse. Endocrine: The patient denies thyroid disorders, notes diabetes, and denies hormonal problems. Hematologic: The patient denies a history of bruising, denies bleeding, and denies anemia, denies blood clots. Infections: The patient denies a history of measles and mumps, denies rheumatic fever, and denies sexually transmitted diseases. Musculoskeletal: The patient denies back pain/injury, denies back problems, denies sciatica, denies knee/foot trouble, denies arthritis, or denies gout. ? ? When was patient's last Mammogram screening? N/A ? Last Colonoscopy: no ? Patricia Arteaga RN I have confirmed and edited as necessary, the PFSH and ROS obtained by others. ? PHYSICAL EXAMINATION: ? General: The patient is 28 year old female, well nourished, well hydrated in no acute distress. The patient is oriented to time, place, and person. ? VITALS: Blood pressure 116/64, pulse 89, temperature 36.7 ?C (98.1 ?F), weight 128.4 kg (283 lb), SpO2 99 %. Body mass index is 45.05 kg/m?. ? HEENT: Normal cephalic, ataumatic, pupils are equally round, sclera are anicteric, mucous membranes are moist, oropharynx is clear. Neck has no masses, asymmetry or lymphadenopathy. ? Respiratory: Clear to auscultation and percussion. Normal respiratory excursion and pattern. ? Cardiac: Examination is regular rate and rhythm. Normal S1/S2 ? Abdominal exam: Soft, nontender, with no palpable masses. No hepatosplenomegaly. No palpable hernias. ? Rectal exam: exam deferred ? Extremities: no clubbing, cyanosis or edema. No adenopathy. ? Other: ? LABORATORY VALUES: As Noted ? RADIOLOGIC STUDIES: As Noted ? ? Assessment IMPRESSION: postprandial left upper quadrant abdominal pain, vomiting, diarrhea ? PLAN: Dr. Hoang also independently evaluated the patient and participated in development of the following plan. We recommend upper and lower endoscopy, as well as stool studies. We discussed the risks and benefits of the planned endoscopy. I have informed the patient that complications can occur including failure to complete the endoscopy and perforation. The patient had the opportunity to ask questions concerning the planned endoscopy. My staff has also explained the procedure to the patient in understandable terms and has given the patient printed material concerning the procedure. The patient freely consents to surgery. ? I plan to use golytely bowel preparation for endoscopy ? Patient has been instructed to contact her PCP regarding her diabetic medications, which may require adjustment during bowel preparation and/or day of procedure. ? I plan for monitored anesthetic care. ? Diagnoses: (R19.7) Diarrhea, unspecified type (primary encounter diagnosis) (R10.84) Generalized abdominal pain (R11.10) Intractable vomiting, presence of nausea not specified, unspecified vomiting type ? My findings have been communicated to Dr. Wells via shared medical record. This note will be forwarded to Dr. SUNNY WELLS MD. Return to Clinic: The patient is instructed to follow-up with me 1 week post operatively. ? Patient verbalized understanding of all above and agreed with the plan ? Madelaine Hobson PA-C PT ED Observed: 05/28/2018 Status: COMPLETED Source: [place] 12:36 PM CLINIC OTHER CAMPUS REPOSITORY HNO ID: [id number] Author: Jose Maria FaithRn) RONIT Marcano Service: Nursing Author Type: Registered Nurse Type: Patient Education Filed: 05/28/2018 12:37 PM Note Text: PRE OP LEARNING ASSESSMENT PROCEDURE/SURGERY: GI PROCEDURES: Colonoscopy and EGD READINESS TO LEARN COGNITIVE ABILITY: Alert and oriented MOTIVATION TO LEARN: Eager FAMILY SUPPORT: High - Very involved in pt care PATIENT LEARNS BEST BY: Individual Instruction Verbal Instruction FACTORS AFFECTING LEARNING: None PHYSICAL LIMITATIONS AFFECTING LEARNING: None Electronically Signed By: Jose Maria Marcano RN In Department: [facility] ENDOSCOPY ANES PREOP Observed: 05/28/2018 Status: COMPLETED Source: [place] 12:25 PM CLINIC OTHER CAMPUS REPOSITORY HNO ID: [id number] Author: Jonathan Pascal Service: Anesthesiology Author Type: Anesthesiologist Type: Anesthesia PreOp Filed: 05/28/2018 12:26 PM Note Text: ANESTHESIOLOGY DAY OF SURGERY NOTE SERVICE DATE: 05/28/2018 SERVICE TIME: 05.27 : 1990 Procedure(s) (LRB): COLONOSCOPY (N/A) EGD (N/A) Surgeon(s): Isabela Hoang Estimated body mass index is 45.05 kg/m? as calculated from the following: Height as of 04/14/18: 168.8 cm (5' 6.46). Weight as of 05/22/18: 128.4 kg (283 lb). Most recent hematocrit and potassium results: Hematocrit 40.7 05/21/2018 Potassium 3.7 05/21/2018 ANES DOS/PREOP NOTE: Vitals: There were no vitals filed for this visit. ACTIVE PROBLEM LIST Type 2 diabetes mellitus (HCC) Obesity, Unspecified History of Depression Depression Pain in Right Hip Chronic Pain of Right Hip Nausea and Vomiting PAST MEDICAL HISTORY Diagnosis Date - Anemia WITH 2ND - Asthma since 14 years old, inhaler PRN - Complex ovarian cyst - Needs follow up imaging 06/09/2013 06/09/2013 An ultrasound was done 06/04/2013 that revealed a 6w5d fetus with DELFINA of 01/24/14. There is fluid seen adjacent to the gestastional sac possible subchorionic hemorrhage. the left ovary is within normal limits but the right ovary contains a 3.8 x 3 x 3.3 cm moderately complex cyst. TKRN 01/15/2014 - Confirmed 9 x 7 x 2.5 cm multi-loculated cyst at the time of . Needs outpatient follow up via TVUS. - Congenital hip deformity right - Diabetes, gestational insulin controlled - Family history of defects 06/09/2013 06/09/2013Patient's mother born with spina bifida. Patient's brother born with a hole in his heart. Patient has another brother that was born with Down syndrome. Patient and her brother born with a congenital hip deformity. Patient has had multiple corrective surgeries for the hip deformity.TKRN - Family history of Down syndrome 06/21/2014 Brother with DS - Family history of spina bifida 06/21/2014 Mom with Spina bifida in wheelchair - Gall stones 2007 Gall bladder removed - History of asthma 06/09/2013 06/09/2013Patient has a history of asthma. She uses an albuterol inhaler when necessary. TKRN - History of 06/09/2013 06/09/2013 Pt had 3 previous C sections. - History of kidney stones - Nausea/vomiting in 06/09/2013 06/09/2013She states she has nausea . Advised patient to call/come in if she has persistent vomiting or if her blood sugars were less than 70. TKRN - Ovarian cyst during 07/21/2014 07/21/14: see NT ultrasound: Right ovarian cyst 6cm - Pain in joint, pelvic region and thigh 01/10/2006 - Pancreatitis - Patient requested diagnostic testing 06/09/2013 06/09/2013 Patient desires early screening in with sequential testing. TKRN - depression - Prior macrosomia, antepartum 06/21/2014 - Short interval between pregnancies complicating , antepartum 06/09/2013 06/09/2013Shguillermo delivered her previous child August 14, 2012.TKRN - Type 2 diabetes mellitus (HCC) 05/22/2013 - Type 2 diabetes mellitus complicating , antepartum 05/28/2013 06/09/2013She has a history of diabetes diagnosed 4 years ago. She was unaware that she was until she went into labor with her first . With her second she started insulin during the second trimester. She was referred to Dr. Tejada at [facility] for poorly controlled diabetes on metformin alone. She has since started insulin and has an appointment today with Dr. Guevara for followup. She has been keeping track of her blood sugars and presents with a journal today and these blood sugars are copy off and given to Dr. Guevara for his review. I have discussed with the patient the importance of good control of her blood sugars during and keeping a blood sugar log for review by the Doctor. She is reminded that she is to send her blood sugars in weekly to Dr. Guevara and she is to call sooner than a week if she has persistently high, greater the 180, or low blood sugars, less than 70. She is provided with a blood sugar log today. She has not had a diabetic foot or eye exam rece PAST SURGICAL HISTORY Procedure Laterality Date - DELIVERY ONLY , low transverse x3 - DELIVERY ONLY 01/19/15 , low transverse - IANDD ABSC; SMPL OR SGL 05/2013 cyst on left upper chest - LAPAROSCOPIC CHOLEYCYSTECTOMY Cholecystectomy, lap - PAST SURGICAL HISTORY OF tubes in ears per Dr Crockett at [facility] - PAST SURGICAL HISTORY OF Tonsils and Adenoids removed per Dr Crockett at [facility] - PAST SURGICAL HISTORY OF [address] Marroquin at [facility] and one by Dr. Camacho in [place] - REMOVAL OF OVARY/TUBE(S) 01/19/15 Salpingo-oophorectomy, right ovarian mass FAMILY HISTORY Problem Relation Age of Onset - Diabetes Mother - Hypertension Mother - other (spina bifida) Mother - Heart Father - Hypertension Father - Cancer Maternal Grandmother - Alcohol/Drug Maternal Grandmother - Heart Paternal Grandmother - Aneurysm Paternal Grandmother - Stroke Brother - other (Down Syndrome) Brother - other (autism) Brother step brother - seizures and cerebral palsy also - other (Open family hx of Neural Tube Defect) Brother Social History: Social History Substance Use Topics - Smoking status: Never Smoker - Smokeless tobacco: Never Used Comment: mom's fiance smokes outside - Alcohol use No No current facility-administered medications on file prior to encounter. Current Outpatient Prescriptions on File Prior to Encounter: Alcohol Swabs padm Use as directed up to 5 times daily DM: yes Insulin: yes DX: E.11.9 blood sugar diagnostic (FREESTYLE LITE STRIPS) test strip Use as directed 4 times daily. COMPOUNDED PRESCRIPTION 1 Each as needed. Sharps Container. Dx:Diabetes mellitus, antepartum (648.03) COMPOUNDED PRESCRIPTION One Touch meter kit. ergocalciferol, vitamin D2, (DRISDOL) 50,000 unit capsule Take 1 capsule by mouth once each week. famotidine (PEPCID) 20 mg tablet Take 1 tablet by mouth daily at bedtime. insulin glargine (BASAGLAR KWIKPEN U-100 INSULIN) 100 unit/mL (3 mL) inpn Inject 40 Units subcutaneously daily at bedtime. insulin needles, DISPOSABLE, (PEN NEEDLE) 31 gauge x 5/16 ndle One daily with insulin Lancets (ONE TOUCH SURESOFT LANCING DEV) lancets Use as instructed Lancets (ONETOUCH ULTRASOFT LANCETS) lancets Test blood sugar(s) 5 times daily. Dx: Type 2 DM - Controlled E11.9 , Insulin: yes liraglutide (VICTOZA) 0.6 mg/ 0.1 ml subcutaneous pen injector Inject 1.8 mg subcutaneously once daily. meloxicam (MOBIC) 15 mg tablet Take 1 tablet by mouth daily with food. metFORMIN ER (GLUCOPHAGE XR) 500 mg 24 hr tablet TAKE TWO TABLETS BY MOUTH WITH BREAKFAST AND TWO TABLETS WITH SUPPER ondansetron (ZOFRAN) 8 mg tablet Take 1 tablet by mouth every 8 hours as needed. Oral Medication Containers (BD SHARPS PRIVATE BANKER) misc 1 Container as needed (to disopse of insulin needles). Oral Medication Containers (SHARPS CONTAINER) misc 1 Can twice daily. pantoprazole DR (PROTONIX) 40 mg tablet Take 1 tablet by mouth once daily. pravastatin (PRAVACHOL) 20 mg tablet Take 1 tablet by mouth once daily. topiramate (TOPAMAX) 25 mg capsule Take 1 capsule by mouth daily at bedtime. Current Facility-Administered Medications: NaCl 0.9% iv infusion 30 mL/hr INTRAVENOUS CONTINUOUS Isabela Hoang Allergies: ALLERGIES Allergen Reactions - Aspirin Hives, GI Upset - Paper Tape [Other] Rash, Swelling, Itching Area gets very red also - Penicillins Hives - Tramadol Other: See Comments Tachycardia DOS EXAM: Adequate NPO status: Yes Anesthetic risks, benefits, alternatives, personnel and consent discussed: Yes Patient agrees to proceed: Yes Previous Anesthesia: No history of adverse event. Airway Assessment: MP 2; Neck ROM: Full ROM without neurologic symptoms; Airway Evaluation: No significant abnormalities Symptoms of Sleep Apnea: None Dentition: Poor dentition Additional Physical Exam: Lungs: Patient health status unchanged since recent history and physical. See history and physical for exam findings. Lungs clear to auscultation. Good diaphragmatic excursion. Cardiac: Patient health status unchanged since recent history and physical. See history and physical for exam findings. normal S1 and S2; no rubs, no murmurs, and no gallops Additional Pertinent Findings: N/A Blood Products: Not anticipated for this procedure. Anesthetic Plan: MAC with Sedation Pain Management Plan: Parenteral or Oral ASA Class: 2 Other Medical Problems: None Chronic Beta Dimitry medication administered within 24 hours: N/A I have interviewed and examined the patient. I have reviewed the medical record and/or the pre-anesthesia evaluation, pertinent labs, and test results. Significant changes in the patient's condition since the History and Physical, not otherwise documented in primary service progress notes: No This contains updated information obtained within 48 hours of Surgery/Procedure. SIGNATURE: Jonathan Pascal MD PATIENT NAME: Mirza Daigle DATE: May 28, 2018 TIME: 12:25 PM CSN: [id number] NURSING PROG Observed: 05/26/2018 Status: COMPLETED Source: [place] 9:20 AM CLINIC OTHER CAMPUS REPOSITORY HNO ID: [id number] Author: Lauren (Rn) RONIT Platt Service: Nursing Author Type: Registered Nurse Type: Nursing Progress Note Filed: 05/26/2018 9:24 AM Note Text: PACC Nurse Progress Note History AND Physical: PACC Visit Date: N/A Original HANDP Date: H and P needed dos ED visit Date: N/A Outside HANDP Scanned Date: N/A Labs Within Last 6 Months: CBC: Date 05/21/18 cbc/diff- within acceptable limits BMP/CMP: Date 05/21/18 cmp- within acceptable limits Imaging Within Last 12 Months: CT Scan-abdomen/pelvis in [facility] Cardiac Testing: EKG in last 12 Months: Yes: Date: 04/14/18, Comment: ST 114 Last Menstrual Period: LMP Date: 05/17/18 per pt Postmenopausal >1yr: No, S/P Hysterectomy: No BMI Percentile (PEDS): N/A BMI 44.1 Risk Assessment: N/A Anesthesia Review: Post op nausea Narrative: N/A Pre-op Considerations: HX IDDM and oral med Chart Check: COMPLETED Lauren Platt RN May 26, 2018 9:20 AM PATIENT PREOPERATIVE INSTRUCTIONS No ref. provider found has scheduled you for your procedure at this surgery center: [facility]: [phone] -- [address] [id number]. Please read below carefully for your personalized instructions. Blood Thinning Medications: - Stop NSAIDS (Ibuprofen, Advil, Aleve, Motrin, Celebrex, Mobic, etc.) 7 days before surgery, as directed by your surgeon. - Stop Vitamin E, ALL multi-vitamins, herbals and dietary supplements 7 days before surgery. Dietary Restrictions: - follow Dr Hoang bowel prep instructions. Pain Medications: Medications: Approved medications to take the morning of surgery with a sip of water: pepcid - No diabetic medication the morning of surgery. - Accucheck day of surgery. - Take full dose of insulin the day before surgery. If you start any new medications after today's visit, please contact the surgeon's office. Important Reminders: - Candy, mints, gum and tobacco products are NOT permitted the morning of surgery. - Hearing aids, dentures and glasses may be worn the morning of surgery. - NO jewelry, body piercings, makeup, hairpins or contacts are to be worn the day of surgery. Shower pre op,no creams,lotions,powders dos If you develop symptoms such as a fever, cold, or flu, or have other changes to your health within TWO DAYS of scheduled surgery or the morning of surgery, please contact the surgery center above. Personal Belongings: - Leave ALL valuables and money at home or with family members. For Outpatient Procedures: - YOU MUST HAVE A RESPONSIBLE URGENT CARE PHYSICIAN ASSISTANT TAKE YOU HOME. A ALCOHOL LAW ENFORCEMENT AGENT OR FINISHING LAB TECHNICIAN CANNOT BE MADE A RESPONSIBLE URGENT CARE PHYSICIAN ASSISTANT. - We recommend that a responsible person stays with you overnight to take care of you. - You cannot stay in a hotel alone after outpatient surgery. You will not be permitted to have your surgery, if you do not have someone to take care of you. Arrival Time for Surgery: - The Surgery Center or hospital where you are having surgery will call the afternoon before surgery (or Saturday for Saturday surgery) with a scheduled arrival time. - If you have not heard by 4 pm, please contact the surgery center above. Please be aware that emergency situations arise, which may delay or change your surgical time. If this happens, we will notify you as soon as possible and regret any inconvenience. Lauren Platt RN 05/26/18 9:20 am PROGRESS Observed: 05/23/2018 Status: COMPLETED Source: [place] 11:[address] [facility] REPOSITORY O ID: [id number] Author: Nedra Meeks Service: (none) Author Type: Cold Saw Operator Type: Progress Notes Filed: 05/23/2018 11:10 AM Note Text: Radiology Service Progress Note PATIENT NAME: Mirza Daigle DATE OF SERVICE: May 23, 2018 TIME: 11:09 AM PATIENT IDENTITY VERIFICATION COMPLETED USING TWO (2) METHODS: Patient confirmed name verbally and Date of . PATIENT GENDER DATA: Female. status: : No status: N/A PATIENT RELEVANT IMPLANT DATA REVIEWED: Not Applicable RADIOLOGY DEPARTMENT: Ultrasound PERIPHERAL IV DATA: Not applicable SIGNED BY: NEDRA MEEKS RDMS RVBrett May 23, 2018 11:09 AM US FEMALE PELVIS Observed: 05/23/2018 Status: F [facility] [facility] REPOSITORY * * *Final Report* * * DATE OF EXAM: May 23 2018 11:08AM WRU [id number] - US FEMALE PELVIS TRANSVAG / PROCEDURE REASON: Adnexal mass * * * * Physician Interpretation * * * * EXAMINATION: TRANSVAGINAL AND LIMITED TRANSABDOMINAL PELVIC ULTRASOUND CLINICAL HISTORY: Ovarian mass on CT imaging TECHNIQUE: Sonography of the pelvis was performed by transvaginal and transabdominal (limited) techniques. Images were obtained and stored in a permanent archive. MQ: UFP_1 COMPARISON: CT imaging of the abdomen and pelvis 05/21/2018 RESULT: Uterus size: 7.4 x 5.7 x 3.9 cm -Orientation: Anteverted -Myometrium: Normal sonographic appearance. -Endometrial echo complex: 1.0 cm -Cervix: normal Right ovary: Absent Left ovary: 3.3 x 3.3 x 2.5 cm Normal sonographic appearance with physiologic follicles. Complex lesion with peripheral vascularity measuring 2.2 x 2.1 x 2.1 cm favored to represent hemorrhagic corpus luteal cyst. Pelvis free fluid: None. IMPRESSION: 2.2 cm complex left ovarian cystic lesion favored to represent hemorrhagic corpus luteal cyst. Consider short-term follow- up pelvic ultrasound imaging (in 4-6 weeks) to assess for resolution Plastic Card Grader Cardroom: [facility] Transcribe Date/Time: May 26 2018 7:17A Dictated by : JUDE JOHNSON MD This examination was interpreted and the report reviewed and electronically signed by: JUDE JOHNSON MD on May 26 2018 7:20AM EST [id number] PROGRESS Observed: 05/22/2018 Status: COMPLETED Source: [place] 3:[address] [facility] REPOSITORY [facility] ID: [id number] Author: Madelaine Hobson (Pa) Service: (none) Author Type: Physician Pc Tech Type: Progress Notes Filed: 05/26/2018 1:55 PM Note Text: HISTORY AND PHYSICAL Mirza Daigle 1990 REFERRING PHYSICIAN: Sunny Wells MD CHIEF COMPLAINT: Consult HPI: The patient is a 28 year old female referred for surgical evaluation. Patient notes a 2-week history of postprandial left upper quadrant abdominal discomfort with associated vomiting and/or watery diarrhea usually within 10 minutes after eating. Describes pain as cramping in nature. Denies radiation of the pain. She notes this regardless of type of food and states has had this evening with drinking water or gatorade. Denies blood in stools or black stools. She states she experiences the above symptoms only in association with eating, not between meals. She denies any sick contacts, changes in diet or recent travel. Patient was recently evaluated in the emergency department at [facility] for the above complaints, was treated with fluids and antiemetics and released. She was then evaluated by her PCP for the above complaints on 05/21/18. She had labwork as well as a CT abdomen/pelvis ordered which are reviewed: Impression IMPRESSION: Left adnexal mass can be further evaluated by ultrasound. Fatty liver. Slightly dilated common bile duct can be correlated with hepatic function blood tests. Nonobstructing left intrarenal calculi Plastic Card Grader Cardroom: [facility] ? Transcribe Date/Time: May 21 2018 ?3:13P Dictated by : STACY BARLOW MD This examination was interpreted and the report reviewed and electronically signed by: STACY BARLOW MD on May 21 2018 ?3:24PM ?EST Results-Findings * * *Final Report* * * DATE OF EXAM: May 21 2018 ?2:40PM ? [facility] ? 0530 ?- ?CT ABD/PEL W IVCON ?/ PROCEDURE REASON: Left upper quadrant pain ?? ? * * * * Physician Interpretation * * * * ?EXAMINATION: ?CT ABDOMEN AND PELVIS WITH IV CONTRAST CLINICAL HISTORY: Left upper quadrant abdominal pain, vomiting TECHNIQUE: CT of the abdomen and pelvis was performed using standard technique, scanning from just above the dome of the diaphragm to the symphysis pubis. MQ: ?CTAP_3 Contrast: IV: ?150 ml of Omnipaque 300 Oral: ?50 ml of 50ML Omnipaque [address] Radiation dose: Integrated Dose-length product (DLP) for this visit = ? 1199 mGy*cm. CT Dose Reduction Employed: Automated exposure control(AEC) and iterative recon COMPARISON: None. RESULT: Liver: No mass. Generalized fatty infiltration. Ill-defined area of hypodensity in the medial segment of the left lobe adjacent to the falciform ligament is thought to be focal more marked steatosis. Biliary: Common duct is dilated up to 14 mm in the corey hepatis, which can sometimes be seen status post cholecystectomy. No intrahepatic biliary dilatation. Common duct does not appear dilated more distally within the head of the pancreas. Spleen: No mass. No splenomegaly. Pancreas: No mass or duct dilation. Adrenals: No mass. Kidneys: No hydronephrosis or mass. 2 punctate densities in the lower pole hilar area of the left kidney are thought to be nonobstructing collecting system calculi. GI tract: No dilation or wall thickening. Appendix appears normal Lymph nodes: No abdominal or pelvic lymphadenopathy. Mesentery/Peritoneum: No ascites or mass. Retroperitoneum: No mass. Vasculature: ?The celiac axis and SMA are patent. The portal vein and branches, splenic vein, SMV, and hepatic veins are patent. Pelvis: 4 cm hypodense left adnexal mass may be a cyst. Bones/Soft Tissues: Intact Lower thorax: Clear Component Latest Ref Rng AND Units 05/21/2018 WBC 3.70 - 11.00 k/uL 11.06 (H) RBC 3.90 - 5.20 m/uL 4.39 Hemoglobin 11.5 - 15.5 g/dL 14.0 Hematocrit 36.0 - 46.0 % 40.7 MCV 80.0 - 100.0 fL 92.7 MCH 26.0 - 34.0 pG 31.9 MCHC 30.5 - 36.0 g/dL 34.4 RDW-CV 11.5 - 15.0 % 12.9 Platelet Count 150 - 400 k/uL 351 MPV 9.0 - 12.7 fL 9.5 Neut% % 60.3 Abs Neut (ANC) 1.45 - 7.50 k/uL 6.67 Lymph% % 31.0 Abs Lymph 1.00 - 4.00 k/uL 3.43 Worth% % 6.7 Abs Worth <0.87 k/uL 0.74 Eosin% % 1.7 Abs Eosin <0.46 k/uL 0.19 Baso% % 0.3 Abs Baso <0.11 k/uL 0.03 Nucleated Reds 0 /100 WBC 0.0 Absolute nRBC <0.01 k/uL <0.01 Diff Type Auto Diff Protein, Total 6.3 - 8.0 g/dL 6.9 Albumin 3.9 - 4.9 g/dL 4.4 Calcium 8.5 - 10.2 mg/dL 9.3 Bilirubin, Total 0.2 - 1.3 mg/dL 1.2 Alkaline Phosphatase 34 - 123 U/L 80 AST 13 - 35 U/L 25 Glucose 74 - 99 mg/dL 112 (H) BUN 7 - 21 mg/dL 9 Creatinine 0.58 - 0.96 mg/dL 0.49 (L) Sodium 136 - 144 mmol/L 139 Potassium 3.7 - 5.1 mmol/L 3.7 Chloride 97 - 105 mmol/L 103 CO2 22 - 30 mmol/L 23 Anion Gap mmol/L 13 ALT 7 - 38 U/L 29 eGFR- >60 eGFR-All Other Races . >60 GLUCOSE UA (POCT) Negative mg/dL Negative BILIRUBIN UA (POCT) Negative Negative KETONE UA (POCT) Negative mg/dL Trace SPECIFIC GRAVITY UA (POCT) 1.005 - 1.030 >=1.030 HEMOGLOBIN/BLOOD UA (POCT) Negative Trace-intact (A) PH UA (POCT) 4.5 - 8.0 5.5 PROTEIN UA (POCT) Negative mg/dL Negative UROBILINOGEN UA (POCT) Normal E.U./dL 0.2 NITRITE UA (POCT) Negative Negative LEUKOCYTES UA (POCT) Negative Negative COLOR UA (POCT) Other CLARITY UA (POCT) Slightly Cloudy H. pylori IgG, Qualitative Negative Negative H pylori Ab, IgG U/mL <0.4 H. pylori IgA, Qualitative Negative Negative H pylori Ab, IgA UNITS 11 Specimen Request Specimen received in preservative Culture 50,000 - <100,000 CFU/ml . . . Patient referred for surgical evaluation and possible endoscopy. Mirza has not undergone prior endoscopy. She denies any family history of colon cancer. Patient's past medical history is significant for asthma, gallstone pancreatitis, type II diabetes mellitus. Past surgical history is significant for cholecystectomy, two C- sections, right salpingo-oophorectomy. She denies any chest pain or shortness of breath. Denies any problems with sedation in the past. PAST MEDICAL HISTORY Diagnosis Date - Anemia WITH 2ND - Asthma since 14 years old, inhaler PRN - Complex ovarian cyst - Needs follow up imaging 06/09/2013 06/09/2013 An ultrasound was done 06/04/2013 that revealed a 6w5d fetus with DELFINA of 01/24/14. There is fluid seen adjacent to the gestastional sac possible subchorionic hemorrhage. the left ovary is within normal limits but the right ovary contains a 3.8 x 3 x 3.3 cm moderately complex cyst. TKRN 01/15/2014 - Confirmed 9 x 7 x 2.5 cm multi-loculated cyst at the time of . Needs outpatient follow up via TVUS. - Congenital hip deformity right - Diabetes, gestational insulin controlled - Family history of defects 06/09/2013 06/09/2013Patient's mother born with spina bifida. Patient's brother born with a hole in his heart. Patient has another brother that was born with Down syndrome. Patient and her brother born with a congenital hip deformity. Patient has had multiple corrective surgeries for the hip deformity.TKRN - Family history of Down syndrome 06/21/2014 Brother with DS - Family history of spina bifida 06/21/2014 Mom with Spina bifida in wheelchair - Gall stones 2007 Gall bladder removed - History of asthma 06/09/2013 06/09/2013Patient has a history of asthma. She uses an albuterol inhaler when necessary. TKRN - History of 06/09/2013 06/09/2013 Pt had 3 previous C sections. - History of kidney stones - Nausea/vomiting in 06/09/2013 06/09/2013She states she has nausea . Advised patient to call/come in if she has persistent vomiting or if her blood sugars were less than 70. TKRN - Ovarian cyst during 07/21/2014 07/21/14: see NT ultrasound: Right ovarian cyst 6cm - Pain in joint, pelvic region and thigh 01/10/2006 - Pancreatitis - Patient requested diagnostic testing 06/09/2013 06/09/2013 Patient desires early screening in with sequential testing. TKRN - depression - Prior macrosomia, antepartum 06/21/2014 - Short interval between pregnancies complicating , antepartum 06/09/2013 06/09/2013Nikki delivered her previous child August 14, 2012.TKRN - Type 2 diabetes mellitus (HCC) 05/22/2013 - Type 2 diabetes mellitus complicating , antepartum 05/28/2013 06/09/2013Nikki has a history of diabetes diagnosed 4 years ago. She was unaware that she was until she went into labor with her first . With her second she started insulin during the second trimester. She was referred to Dr. Tejada at [facility] for poorly controlled diabetes on metformin alone. She has since started insulin and has an appointment today with Dr. Guevara for followup. She has been keeping track of her blood sugars and presents with a journal today and these blood sugars are copy off and given to Dr. Guevara for his review. I have discussed with the patient the importance of good control of her blood sugars during and keeping a blood sugar log for review by the Doctor. She is reminded that she is to send her blood sugars in weekly to Dr. Guevara and she is to call sooner than a week if she has persistently high, greater the 180, or low blood sugars, less than 70. She is provided with a blood sugar log today. She has not had a diabetic foot or eye exam rece PAST SURGICAL HISTORY Procedure Laterality Date - DELIVERY ONLY , low transverse x3 - DELIVERY ONLY 01/19/15 , low transverse - IANDD ABSC; [facility] OR SGL 05/2013 cyst on left upper chest - LAPAROSCOPIC CHOLEYCYSTECTOMY Cholecystectomy, lap - PAST SURGICAL HISTORY OF tubes in ears per Dr Crockett at [facility] - PAST SURGICAL HISTORY OF Tonsils and Adenoids removed per Dr Crockett at [facility] - PAST SURGICAL HISTORY OF [address] Marroquin at [facility] and one by Dr. Camacho in [place] - REMOVAL OF OVARY/TUBE(S) 01/19/15 Salpingo-oophorectomy, right ovarian mass Current Outpatient Prescriptions: Alcohol Swabs padm Use as directed up to 5 times daily DM: yes Insulin: yes DX: E.11.9 blood sugar diagnostic (FREESTYLE LITE STRIPS) test strip Use as directed 4 times daily. COMPOUNDED PRESCRIPTION 1 Each as needed. Sharps Container. Dx:Diabetes mellitus, antepartum (648.03) COMPOUNDED PRESCRIPTION One Touch meter kit. enteric contrast (will be provided with radiology test) For CT ABD/PEL W IVCON Routine order Administer, As Directed One Time Only, via Oral, Rectal, both Oral and Rectal, Enteric Tube, Stoma or Indwelling Catheter, Enteric Contrast as designated per enteric contrast guidelines ergocalciferol, vitamin D2, (DRISDOL) 50,000 unit capsule Take 1 capsule by mouth once each week. famotidine (PEPCID) 20 mg tablet Take 1 tablet by mouth daily at bedtime. insulin glargine (BASAGLAR KWIKPEN U-100 INSULIN) 100 unit/mL (3 mL) inpn Inject 40 Units subcutaneously daily at bedtime. insulin needles, DISPOSABLE, (PEN NEEDLE) 31 gauge x 5/16 ndle One daily with insulin iv contrast (will be provided with radiology test) CT ABD/PEL -Inject, intravenously, once for 1 dose.No IV access, insert saline lock prior to the beginning of sedation, infusion, injection of imaging exam. Discontinue saline lock post exam. If Pt. has a central line or IVAD, may access for administration according to line specific nursing protocol. Once exam is complete flush line and de-access according to line specific nursing protocol in the CT contrast administration guidelines link. Lancets (ONE TOUCH SURESOFT LANCING DEV) lancets Use as instructed Lancets (ONETOUCH ULTRASOFT LANCETS) lancets Test blood sugar(s) 5 times daily. Dx: Type 2 DM - Controlled E11.9 , Insulin: yes liraglutide (VICTOZA) 0.6 mg/ 0.1 ml subcutaneous pen injector Inject 1.8 mg subcutaneously once daily. meloxicam (MOBIC) 15 mg tablet Take 1 tablet by mouth daily with food. metFORMIN ER (GLUCOPHAGE XR) 500 mg 24 hr tablet TAKE TWO TABLETS BY MOUTH WITH BREAKFAST AND TWO TABLETS WITH SUPPER ondansetron (ZOFRAN) 8 mg tablet Take 1 tablet by mouth every 8 hours as needed. Oral Medication Containers (BD SHARPS PRIVATE BANKER) misc 1 Container as needed (to disopse of insulin needles). Oral Medication Containers (SHARPS CONTAINER) misc 1 Can twice daily. pantoprazole DR (PROTONIX) 40 mg tablet Take 1 tablet by mouth once daily. pravastatin (PRAVACHOL) 20 mg tablet Take 1 tablet by mouth once daily. topiramate (TOPAMAX) 25 mg capsule Take 1 capsule by mouth daily at bedtime. No current facility-administered medications for this visit. ALLERGIES: Aspirin; Paper Tape [Other]; Penicillins; Tramadol PERSONAL HISTORY: Social History Marital status: Single Spouse name: Years of education: 10 Number of children: 2 Occupational History Occupation Employer Comment [employer]OMEM[employer] Social History Main Topics Smoking status: Never Smoker Smokeless tobacco: Never Used Comment: mom's fiance smokes outside Alcohol use: No Drug use: No Sexual activity: Yes Partners with: Male FAMILY HISTORY: FAMILY HISTORY Problem Relation Age of Onset - Diabetes Mother - Hypertension Mother - other (spina bifida) Mother - Heart Father - Hypertension Father - Cancer Maternal Grandmother - Alcohol/Drug Maternal Grandmother - Heart Paternal Grandmother - Aneurysm Paternal Grandmother - Stroke Brother - other (Down Syndrome) Brother - other (autism) Brother step brother - seizures and cerebral palsy also - other (Open family hx of Neural Tube Defect) Brother REVIEW OF SYMPTOMS: The review of systems data was entered by the nurse and reviewed by la Nursing Notes: Patricia Arteaga RN 05/22/2018 3:27 PM Signed REVIEW OF SYSTEMS: General: The patient notes fatigue, denies weight loss, denies weight gain, denies feeling hot, and denies feelings of cold. Eyes: The patient denies glaucoma, denies eye injury/surgery, wears glasses or contacts. Ear/Nose/Throat: The patient denies allergies, denies hayfever, denies ear infections, and notes bloody noses. Cardiovascular: The patient denies chest pain, denies heart disease, denies high blood pressure,denies cardiac stent, denies prior heart attack, denies irregular heart beat, denies high cholesterol, denies poor circulation, denies heart failure, other cardiac issues, denies claudication, denies cold feet, denies peripheral arterial stent. Respiratory: The patient denies tuberculosis, denies pneumonia, denies frequent cough, denies pulmonary embolism, denies shortness of breath, and denies coughing up blood. Gastrointestinal: The patient denies difficulty swallowing, notes acid reflux, notes ulcers, notes vomiting, denies jaundice/hepatitis, notes gallbladder problems, denies black or tarry stools, denies hemorrhoids, denies bleeding from rectum, denies diverticulitis, denies constipation, notes diarrhea, denies loss of stool control, and denies hernias. Kidney/Bladder: The patient notes kidney stones, denies urine infections, and denies bloody urine. Skin: The patient denies a history of skin cancer, denies bleeding/changing moles, and denies a history of skin rash. Neurologic: The patient denies a history of epilepsy/convulsions, denies headaches, denies head/spinal injuries, and denies stroke/TIA. Psychiatric: The patient denies psychiatric medications, denies depression, and denies voices, denies substance abuse. Endocrine: The patient denies thyroid disorders, notes diabetes, and denies hormonal problems. Hematologic: The patient denies a history of bruising, denies bleeding, and denies anemia, denies blood clots. Infections: The patient denies a history of measles and mumps, denies rheumatic fever, and denies sexually transmitted diseases. Musculoskeletal: The patient denies back pain/injury, denies back problems, denies sciatica, denies knee/foot trouble, denies arthritis, or denies gout. When was patient's last Mammogram screening? N/A Last Colonoscopy: no Patricia Arteaga RN I have confirmed and edited as necessary, the PFSH and ROS obtained by others. PHYSICAL EXAMINATION: General: The patient is 28 year old female, well nourished, well hydrated in no acute distress. The patient is oriented to time, place, and person. VITALS: Blood pressure 116/64, pulse 89, temperature 36.7 ?C (98.1 ?F), weight 128.4 kg (283 lb), SpO2 99 %. Body mass index is 45.05 kg/m?. HEENT: Normal cephalic, ataumatic, pupils are equally round, sclera are anicteric, mucous membranes are moist, oropharynx is clear. Neck has no masses, asymmetry or lymphadenopathy. Respiratory: Clear to auscultation and percussion. Normal respiratory excursion and pattern. Cardiac: Examination is regular rate and rhythm. Normal S1/S2 Abdominal exam: Soft, nontender, with no palpable masses. No hepatosplenomegaly. No palpable hernias. Rectal exam: exam deferred Extremities: no clubbing, cyanosis or edema. No adenopathy. Other: LABORATORY VALUES: As Noted RADIOLOGIC STUDIES: As Noted Assessment IMPRESSION: postprandial left upper quadrant abdominal pain, vomiting, diarrhea PLAN: Dr. Hoang also independently evaluated the patient and participated in development of the following plan. We recommend upper and lower endoscopy, as well as stool studies. We discussed the risks and benefits of the planned endoscopy. I have informed the patient that complications can occur including failure to complete the endoscopy and perforation. The patient had the opportunity to ask questions concerning the planned endoscopy. My staff has also explained the procedure to the patient in understandable terms and has given the patient printed material concerning the procedure. The patient freely consents to surgery. I plan to use golytely bowel preparation for endoscopy Patient has been instructed to contact her PCP regarding her diabetic medications, which may require adjustment during bowel preparation and/or day of procedure. I plan for monitored anesthetic care. Diagnoses: (R19.7) Diarrhea, unspecified type (primary encounter diagnosis) (R10.84) Generalized abdominal pain (R11.10) Intractable vomiting, presence of nausea not specified, unspecified vomiting type My findings have been communicated to Dr. Wells via shared medical record. This note will be forwarded to Dr. SUNNY WELLS MD. Return to Clinic: The patient is instructed to follow-up with me 1 week post operatively. Patient verbalized understanding of all above and agreed with the plan ISAURO Wilkins Observed: 05/22/2018 Status: COMPLETED Source: [place] 3:30 PM [facility] [place] REPOSITORY Office Visit (GENSWS) MIRZA DAIGLE ([id number]) 1990 F Date Time Provider Department 05/22/18 3:30 PM MADLEAINE HOBSON (PA) During your visit today, we recorded the following information about you: Temperature Pulse Blood pressure Weight 98.1 degrees 89/minute 116/64 128.4 kg Patricia Arteaga RN 05/22/2018 3:27 PM Signed REVIEW OF SYSTEMS: General: The patient notes fatigue, denies weight loss, denies weight gain, denies feeling hot, and denies feelings of cold. Eyes: The patient denies glaucoma, denies eye injury/surgery, wears glasses or contacts. Ear/Nose/Throat: The patient denies allergies, denies hayfever, denies ear infections, and notes bloody noses. Cardiovascular: The patient denies chest pain, denies heart disease, denies high blood pressure,denies cardiac stent, denies prior heart attack, denies irregular heart beat, denies high cholesterol, denies poor circulation, denies heart failure, other cardiac issues, denies claudication, denies cold feet, denies peripheral arterial stent. Respiratory: The patient denies tuberculosis, denies pneumonia, denies frequent cough, denies pulmonary embolism, denies shortness of breath, and denies coughing up blood. Gastrointestinal: The patient denies difficulty swallowing, notes acid reflux, notes ulcers, notes vomiting, denies jaundice/hepatitis, notes gallbladder problems, denies black or tarry stools, denies hemorrhoids, denies bleeding from rectum, denies diverticulitis, denies constipation, notes diarrhea, denies loss of stool control, and denies hernias. Kidney/Bladder: The patient notes kidney stones, denies urine infections, and denies bloody urine. Skin: The patient denies a history of skin cancer, denies bleeding/changing moles, and denies a history of skin rash. Neurologic: The patient denies a history of epilepsy/convulsions, denies headaches, denies head/spinal injuries, and denies stroke/TIA. Psychiatric: The patient denies psychiatric medications, denies depression, and denies voices, denies substance abuse. Endocrine: The patient denies thyroid disorders, notes diabetes, and denies hormonal problems. Hematologic: The patient denies a history of bruising, denies bleeding, and denies anemia, denies blood clots. Infections: The patient denies a history of measles and mumps, denies rheumatic fever, and denies sexually transmitted diseases. Musculoskeletal: The patient denies back pain/injury, denies back problems, denies sciatica, denies knee/foot trouble, denies arthritis, or denies gout. When was patient's last Mammogram screening? N/A Last Colonoscopy: no Patricia Hobson PA-C 05/26/2018 1:55 PM Signed HISTORY AND PHYSICAL Mirza Daigle 1990 REFERRING PHYSICIAN: Sunny Wells MD CHIEF COMPLAINT: Consult HPI: The patient is a 28 year old female referred for surgical evaluation. Patient notes a 2-week history of postprandial left upper quadrant abdominal discomfort with associated vomiting and/or watery diarrhea usually within 10 minutes after eating. Describes pain as cramping in nature. Denies radiation of the pain. She notes this regardless of type of food and states has had this evening with drinking water or gatorade. Denies blood in stools or black stools. She states she experiences the above symptoms only in association with eating, not between meals. She denies any sick contacts, changes in diet or recent travel. Patient was recently evaluated in the emergency department at [facility] for the above complaints, was treated with fluids and antiemetics and released. She was then evaluated by her PCP for the above complaints on 05/21/18. She had labwork as well as a CT abdomen/pelvis ordered which are reviewed: Impression IMPRESSION: Left adnexal mass can be further evaluated by ultrasound. Fatty liver. Slightly dilated common bile duct can be correlated with hepatic function blood tests. Nonobstructing left intrarenal calculi Plastic Card Grader Cardroom: XIAO ? Transcribe Date/Time: May 21 2018 ?3:13P Dictated by : STACY BARLOW MD This examination was interpreted and the report reviewed and electronically signed by: STACY BARLOW MD on May 21 2018 ?3:24PM ?EST Results-Findings * * *Final Report* * * DATE OF EXAM: May 21 2018 ?2:40PM ? [facility] ? 0530 ?- ?CT ABD/PEL W IVCON ?/ PROCEDURE REASON: Left upper quadrant pain ?? ? * * * * Physician Interpretation * * * * ?EXAMINATION: ?CT ABDOMEN AND PELVIS WITH IV CONTRAST CLINICAL HISTORY: Left upper quadrant abdominal pain, vomiting TECHNIQUE: CT of the abdomen and pelvis was performed using standard technique, scanning from just above the dome of the diaphragm to the symphysis pubis. MQ: ?CTAP_3 Contrast: IV: ?150 ml of Omnipaque 300 Oral: ?50 ml of 50ML Omnipaque [address] Radiation dose: Integrated Dose-length product (DLP) for this visit = ? 1199 mGy*cm. CT Dose Reduction Employed: Automated exposure control(AEC) and iterative recon COMPARISON: None. RESULT: Liver: No mass. Generalized fatty infiltration. Ill-defined area of hypodensity in the medial segment of the left lobe adjacent to the falciform ligament is thought to be focal more marked steatosis. Biliary: Common duct is dilated up to 14 mm in the corey hepatis, which can sometimes be seen status post cholecystectomy. No intrahepatic biliary dilatation. Common duct does not appear dilated more distally within the head of the pancreas. Spleen: No mass. No splenomegaly. Pancreas: No mass or duct dilation. Adrenals: No mass. Kidneys: No hydronephrosis or mass. 2 punctate densities in the lower pole hilar area of the left kidney are thought to be nonobstructing collecting system calculi. GI tract: No dilation or wall thickening. Appendix appears normal Lymph nodes: No abdominal or pelvic lymphadenopathy. Mesentery/Peritoneum: No ascites or mass. Retroperitoneum: No mass. Vasculature: ?The celiac axis and SMA are patent. The portal vein and branches, splenic vein, SMV, and hepatic veins are patent. Pelvis: 4 cm hypodense left adnexal mass may be a cyst. Bones/Soft Tissues: Intact Lower thorax: Clear Component Latest Ref Rng AND Units 05/21/2018 WBC 3.70 - 11.00 k/uL 11.06 (H) RBC 3.90 - 5.20 m/uL 4.39 Hemoglobin 11.5 - 15.5 g/dL 14.0 Hematocrit 36.0 - 46.0 % 40.7 MCV 80.0 - 100.0 fL 92.7 MCH 26.0 - 34.0 pG 31.9 MCHC 30.5 - 36.0 g/dL 34.4 RDW-CV 11.5 - 15.0 % 12.9 Platelet Count 150 - 400 k/uL 351 MPV 9.0 - 12.7 fL 9.5 Neut% % 60.3 Abs Neut (ANC) 1.45 - 7.50 k/uL 6.67 Lymph% % 31.0 Abs Lymph 1.00 - 4.00 k/uL 3.43 Worth% % 6.7 Abs Worth <0.87 k/uL 0.74 Eosin% % 1.7 Abs Eosin <0.46 k/uL 0.19 Baso% % 0.3 Abs Baso <0.11 k/uL 0.03 Nucleated Reds 0 /100 WBC 0.0 Absolute nRBC <0.01 k/uL <0.01 Diff Type Auto Diff Protein, Total 6.3 - 8.0 g/dL 6.9 Albumin 3.9 - 4.9 g/dL 4.4 Calcium 8.5 - 10.2 mg/dL 9.3 Bilirubin, Total 0.2 - 1.3 mg/dL 1.2 Alkaline Phosphatase 34 - 123 U/L 80 AST 13 - 35 U/L 25 Glucose 74 - 99 mg/dL 112 (H) BUN 7 - 21 mg/dL 9 Creatinine 0.58 - 0.96 mg/dL 0.49 (L) Sodium 136 - 144 mmol/L 139 Potassium 3.7 - 5.1 mmol/L 3.7 Chloride 97 - 105 mmol/L 103 CO2 22 - 30 mmol/L 23 Anion Gap mmol/L 13 ALT 7 - 38 U/L 29 eGFR- >60 eGFR-All Other Races . >60 GLUCOSE UA (POCT) Negative mg/dL Negative BILIRUBIN UA (POCT) Negative Negative KETONE UA (POCT) Negative mg/dL Trace SPECIFIC GRAVITY UA (POCT) 1.005 - 1.030 >=1.030 HEMOGLOBIN/BLOOD UA (POCT) Negative Trace-intact (A) PH UA (POCT) 4.5 - 8.0 5.5 PROTEIN UA (POCT) Negative mg/dL Negative UROBILINOGEN UA (POCT) Normal E.U./dL 0.2 NITRITE UA (POCT) Negative Negative LEUKOCYTES UA (POCT) Negative Negative COLOR UA (POCT) Other CLARITY UA (POCT) Slightly Cloudy H. pylori IgG, Qualitative Negative Negative H pylori Ab, IgG U/mL <0.4 H. pylori IgA, Qualitative Negative Negative H pylori Ab, IgA UNITS 11 Specimen Request Specimen received in preservative Culture 50,000 - <100,000 CFU/ml . . . Patient referred for surgical evaluation and possible endoscopy. Mirza has not undergone prior endoscopy. She denies any family history of colon cancer. Patient's past medical history is significant for asthma, gallstone pancreatitis, type II diabetes mellitus. Past surgical history is significant for cholecystectomy, two C-sections, right salpingo-oophorectomy. She denies any chest pain or shortness of breath. Denies any problems with sedation in the past. PAST MEDICAL HISTORY Diagnosis Date - Anemia WITH 2ND - Asthma since 14 years old, inhaler PRN - Complex ovarian cyst - Needs follow up imaging 06/09/2013 06/09/2013 An ultrasound was done 06/04/2013 that revealed a 6w5d fetus with DELFINA of 01/24/14. There is fluid seen adjacent to the gestastional sac possible subchorionic hemorrhage. the left ovary is within normal limits but the right ovary contains a 3.8 x 3 x 3.3 cm moderately complex cyst. TKRN 01/15/2014 - Confirmed 9 x 7 x 2.5 cm multi-loculated cyst at the time of . Needs outpatient follow up via TVUS. - Congenital hip deformity right - Diabetes, gestational insulin controlled - Family history of defects 06/09/2013 06/09/2013Patient's mother born with spina bifida. Patient's brother born with a hole in his heart. Patient has another brother that was born with Down syndrome. Patient and her brother born with a congenital hip deformity. Patient has had multiple corrective surgeries for the hip deformity.TKRN - Family history of Down syndrome 06/21/2014 Brother with DS - Family history of spina bifida 06/21/2014 Mom with Spina bifida in wheelchair - Gall stones 2007 Gall bladder removed - History of asthma 06/09/2013 06/09/2013Patient has a history of asthma. She uses an albuterol inhaler when necessary. TKRN - History of 06/09/2013 06/09/2013 Pt had 3 previous C sections. - History of kidney stones - Nausea/vomiting in 06/09/2013 06/09/2013She states she has nausea . Advised patient to call/come in if she has persistent vomiting or if her blood sugars were less than 70. TKRN - Ovarian cyst during 07/21/2014 07/21/14: see NT ultrasound: Right ovarian cyst 6cm - Pain in joint, pelvic region and thigh 01/10/2006 - Pancreatitis - Patient requested diagnostic testing 06/09/2013 06/09/2013 Patient desires early screening in with sequential testing. TKRN - depression - Prior macrosomia, antepartum 06/21/2014 - Short interval between pregnancies complicating , antepartum 06/09/2013 06/09/2013Nikki delivered her previous child August 14, 2012.TKRN - Type 2 diabetes mellitus (HCC) 05/22/2013 - Type 2 diabetes mellitus complicating , antepartum 05/28/2013 06/09/2013Nikki has a history of diabetes diagnosed 4 years ago. She was unaware that she was until she went into labor with her first . With her second she started insulin during the second trimester. She was referred to Dr. Tejada at [facility] for poorly controlled diabetes on metformin alone. She has since started insulin and has an appointment today with Dr. Guevara for followup. She has been keeping track of her blood sugars and presents with a journal today and these blood sugars are copy off and given to Dr. Guevara for his review. I have discussed with the patient the importance of good control of her blood sugars during and keeping a blood sugar log for review by the Doctor. She is reminded that she is to send her blood sugars in weekly to Dr. Guevara and she is to call sooner than a week if she has persistently high, greater the 180, or low blood sugars, less than 70. She is provided with a blood sugar log today. She has not had a diabetic foot or eye exam rece PAST SURGICAL HISTORY Procedure Laterality Date - DELIVERY ONLY , low transverse x3 - DELIVERY ONLY 01/19/15 , low transverse - IANDD ABSC; [facility] OR SGL 05/2013 cyst on left upper chest - LAPAROSCOPIC CHOLEYCYSTECTOMY Cholecystectomy, lap - PAST SURGICAL HISTORY OF tubes in ears per Dr Crockett at [facility] - PAST SURGICAL HISTORY OF Tonsils and Adenoids removed per Dr Crockett at [facility] - PAST SURGICAL HISTORY OF [address] Marroquin at [facility] and one by Dr. Camacho in [place] - REMOVAL OF OVARY/TUBE(S) 01/19/15 Salpingo-oophorectomy, right ovarian mass Current Outpatient Prescriptions: Alcohol Swabs padm Use as directed up to 5 times daily DM: yes Insulin: yes DX: E.11.9 blood sugar diagnostic (FREESTYLE LITE STRIPS) test strip Use as directed 4 times daily. COMPOUNDED PRESCRIPTION 1 Each as needed. Sharps Container. Dx:Diabetes mellitus, antepartum (648.03) COMPOUNDED PRESCRIPTION One Touch meter kit. enteric contrast (will be provided with radiology test) For CT ABD/PEL W IVCON Routine order Administer, As Directed One Time Only, via Oral, Rectal, both Oral and Rectal, Enteric Tube, Stoma or Indwelling Catheter, Enteric Contrast as designated per enteric contrast guidelines ergocalciferol, vitamin D2, (DRISDOL) 50,000 unit capsule Take 1 capsule by mouth once each week. famotidine (PEPCID) 20 mg tablet Take 1 tablet by mouth daily at bedtime. insulin glargine (BASAGLAR KWIKPEN U-100 INSULIN) 100 unit/mL (3 mL) inpn Inject 40 Units subcutaneously daily at bedtime. insulin needles, DISPOSABLE, (PEN NEEDLE) 31 gauge x 5/16 ndle One daily with insulin iv contrast (will be provided with radiology test) CT ABD/PEL -Inject, intravenously, once for 1 dose.No IV access, insert saline lock prior to the beginning of sedation, infusion, injection of imaging exam. Discontinue saline lock post exam. If Pt. has a central line or IVAD, may access for administration according to line specific nursing protocol. Once exam is complete flush line and de-access according to line specific nursing protocol in the CT contrast administration guidelines link. Lancets (ONE TOUCH SURESOFT LANCING DEV) lancets Use as instructed Lancets (ONETOUCH ULTRASOFT LANCETS) lancets Test blood sugar(s) 5 times daily. Dx: Type 2 DM - Controlled E11.9 , Insulin: yes liraglutide (VICTOZA) 0.6 mg/ 0.1 ml subcutaneous pen injector Inject 1.8 mg subcutaneously once daily. meloxicam (MOBIC) 15 mg tablet Take 1 tablet by mouth daily with food. metFORMIN ER (GLUCOPHAGE XR) 500 mg 24 hr tablet TAKE TWO TABLETS BY MOUTH WITH BREAKFAST AND TWO TABLETS WITH SUPPER ondansetron (ZOFRAN) 8 mg tablet Take 1 tablet by mouth every 8 hours as needed. Oral Medication Containers (BD SHARPS PRIVATE BANKER) misc 1 Container as needed (to disopse of insulin needles). Oral Medication Containers (SHARPS CONTAINER) misc 1 Can twice daily. pantoprazole DR (PROTONIX) 40 mg tablet Take 1 tablet by mouth once daily. pravastatin (PRAVACHOL) 20 mg tablet Take 1 tablet by mouth once daily. topiramate (TOPAMAX) 25 mg capsule Take 1 capsule by mouth daily at bedtime. No current facility-administered medications for this visit. ALLERGIES: Aspirin; Paper Tape [Other]; Penicillins; Tramadol PERSONAL HISTORY: Social History Marital status: Single Spouse name: Years of education: 10 Number of children: 2 Occupational History Occupation Employer Comment HOMEMAKER Social History Main Topics Smoking status: Never Smoker Smokeless tobacco: Never Used Comment: mom's fiance smokes outside Alcohol use: No Drug use: No Sexual activity: Yes Partners with: Male FAMILY HISTORY: FAMILY HISTORY Problem Relation Age of Onset - Diabetes Mother - Hypertension Mother - other (spina bifida) Mother - Heart Father - Hypertension Father - Cancer Maternal Grandmother - Alcohol/Drug Maternal Grandmother - Heart Paternal Grandmother - Aneurysm Paternal Grandmother - Stroke Brother - other (Down Syndrome) Brother - other (autism) Brother step brother - seizures and cerebral palsy also - other (Open family hx of Neural Tube Defect) Brother REVIEW OF SYMPTOMS: The review of systems data was entered by the nurse and reviewed by la Nursing Notes: Patricia Arteaga RN 05/22/2018 3:27 PM Signed REVIEW OF SYSTEMS: General: The patient notes fatigue, denies weight loss, denies weight gain, denies feeling hot, and denies feelings of cold. Eyes: The patient denies glaucoma, denies eye injury/surgery, wears glasses or contacts. Ear/Nose/Throat: The patient denies allergies, denies hayfever, denies ear infections, and notes bloody noses. Cardiovascular: The patient denies chest pain, denies heart disease, denies high blood pressure,denies cardiac stent, denies prior heart attack, denies irregular heart beat, denies high cholesterol, denies poor circulation, denies heart failure, other cardiac issues, denies claudication, denies cold feet, denies peripheral arterial stent. Respiratory: The patient denies tuberculosis, denies pneumonia, denies frequent cough, denies pulmonary embolism, denies shortness of breath, and denies coughing up blood. Gastrointestinal: The patient denies difficulty swallowing, notes acid reflux, notes ulcers, notes vomiting, denies jaundice/hepatitis, notes gallbladder problems, denies black or tarry stools, denies hemorrhoids, denies bleeding from rectum, denies diverticulitis, denies constipation, notes diarrhea, denies loss of stool control, and denies hernias. Kidney/Bladder: The patient notes kidney stones, denies urine infections, and denies bloody urine. Skin: The patient denies a history of skin cancer, denies bleeding/changing moles, and denies a history of skin rash. Neurologic: The patient denies a history of epilepsy/convulsions, denies headaches, denies head/spinal injuries, and denies stroke/TIA. Psychiatric: The patient denies psychiatric medications, denies depression, and denies voices, denies substance abuse. Endocrine: The patient denies thyroid disorders, notes diabetes, and denies hormonal problems. Hematologic: The patient denies a history of bruising, denies bleeding, and denies anemia, denies blood clots. Infections: The patient denies a history of measles and mumps, denies rheumatic fever, and denies sexually transmitted diseases. Musculoskeletal: The patient denies back pain/injury, denies back problems, denies sciatica, denies knee/foot trouble, denies arthritis, or denies gout. When was patient's last Mammogram screening? N/A Last Colonoscopy: no Patricia Arteaga RN I have confirmed and edited as necessary, the PFSH and ROS obtained by others. PHYSICAL EXAMINATION: General: The patient is 28 year old female, well nourished, well hydrated in no acute distress. The patient is oriented to time, place, and person. VITALS: Blood pressure 116/64, pulse 89, temperature 36.7 ?C (98.1 ?F), weight 128.4 kg (283 lb), SpO2 99 %. Body mass index is 45.05 kg/m?. HEENT: Normal cephalic, ataumatic, pupils are equally round, sclera are anicteric, mucous membranes are moist, oropharynx is clear. Neck has no masses, asymmetry or lymphadenopathy. Respiratory: Clear to auscultation and percussion. Normal respiratory excursion and pattern. Cardiac: Examination is regular rate and rhythm. Normal S1/S2 Abdominal exam: Soft, nontender, with no palpable masses. No hepatosplenomegaly. No palpable hernias. Rectal exam: exam deferred Extremities: no clubbing, cyanosis or edema. No adenopathy. Other: LABORATORY VALUES: As Noted RADIOLOGIC STUDIES: As Noted Assessment IMPRESSION: postprandial left upper quadrant abdominal pain, vomiting, diarrhea PLAN: Dr. Hoang also independently evaluated the patient and participated in development of the following plan. We recommend upper and lower endoscopy, as well as stool studies. We discussed the risks and benefits of the planned endoscopy. I have informed the patient that complications can occur including failure to complete the endoscopy and perforation. The patient had the opportunity to ask questions concerning the planned endoscopy. My staff has also explained the procedure to the patient in understandable terms and has given the patient printed material concerning the procedure. The patient freely consents to surgery. I plan to use golytely bowel preparation for endoscopy Patient has been instructed to contact her PCP regarding her diabetic medications, which may require adjustment during bowel preparation and/or day of procedure. I plan for monitored anesthetic care. Diagnoses: (R19.7) Diarrhea, unspecified type (primary encounter diagnosis) (R10.84) Generalized abdominal pain (R11.10) Intractable vomiting, presence of nausea not specified, unspecified vomiting type My findings have been communicated to Dr. Wells via shared medical record. This note will be forwarded to Dr. SUNNY WELLS MD. Return to Clinic: The patient is instructed to follow-up with me 1 week post operatively. Patient verbalized understanding of all above and agreed with the plan Madelaine Hobson PA-C Referring Provider: SUNNY WELLS [[id number]] Allergies As of Date: 05/22/2018 Noted Allergy Reaction ASPIRIN 09/18/2005 4 - Hives 8 - GI Upset paper tape [Other] 06/26/2005 2 - Rash 7 - Swelling 9 - Itching Comments: Area gets very red also PENICILLINS 05/11/2013 4 - Hives TRAMADOL 04/14/2018 14 - Other: See Comments Comments: Tachycardia Date Reviewed: 05/22/2018 Reviewed by: Patricia Arteaga RN - Fully Assessed Reason for Visit: Consult [173] Primary Visit Diagnosis:Diarrhea, unspecified type [R19.7] Other Visit Diagnoses:Generalized abdominal pain [R10.84] Intractable vomiting, presence of nausea not specified, unspecified vomiting type [R11.10] Order(s):EGD [6329883] Order #: [id number] FUTURE COLONOSCOPY - DIAGNOSTIC [4532053] Order #: [id number] FUTURE OVA + PARA MICROSCOPIC [SQOVAP] Order #: [id number] FUTURE C. DIFFICILE PCR [SQCDPCR] Order #: [id number] STOOL CULTURE/EIA [SQSTOCUL] Order #: [id number] FUTURE FECAL LACTOFERRIN/LEUKOCYTES [SQFECWBC] Order #: [id number] [] peg 3350-Electrolytes (GOLYTELY) 236-22.74-6.74 -5.86 gram suspensionTake 4,000 mL by mouth one time only for 1 dose.Disp: 1 BottleRfl: 0 Prescriptions as of 05/22/2018 Sig: ALCOHOL SWABS Use as directed up to 5 times* BLOOD SUGAR DIAGNOSTIC STRIPS Use as directed 4 times daily. COMPOUNDED PRESCRIPTION 1 Each as needed. Sharps Cont* COMPOUNDED PRESCRIPTION One Touch meter kit. ENTERIC CONTRAST (RADIOLOGY P* For CT ABD/PEL W IVCON Routin* ERGOCALCIFEROL (VITAMIN D2) 5* Take 1 capsule by mouth once * FAMOTIDINE 20 MG TABLET Take 1 tablet by mouth daily * INSULIN GLARGINE (U-100) 100 * Inject 40 Units subcutaneousl* PEN NEEDLE, DIABETIC 31 GAUGE* One daily with insulin IV CONTRAST (RADIOLOGY PROCED* CT ABD/PEL -Inject, intraveno* LANCETS Use as instructed LANCETS Test blood sugar(s) 5 times * LIRAGLUTIDE 0.6 MG/0.1 ML (18* Inject 1.8 mg subcutaneously * MELOXICAM 15 MG TABLET Take 1 tablet by mouth daily * METFORMIN ER 500 MG TABLET,EX* TAKE TWO TABLETS BY MOUTH WIT* ONDANSETRON HCL 8 MG TABLET Take 1 tablet by mouth every * EMPTY CONTAINER 1 Container as needed (to dis* EMPTY CONTAINER 1 Can twice daily. PANTOPRAZOLE 40 MG TABLET,DEL* Take 1 tablet by mouth once d* PRAVASTATIN 20 MG TABLET Take 1 tablet by mouth once d* TOPIRAMATE 25 MG SPRINKLE CAP* Take 1 capsule by mouth daily* PEG 3350-ELECTROLYTES 236 GRA* Take 4,000 mL by mouth one ti* Problem List As Of Date 05/22/2018 Noted Resolved Type 2 diabetes mellitus (HCC) [E11.9] INVALID FOR* More... More... More... Obesity, unspecified [E66.9] INVALID FOR* More... History of flank pain [Z87.898] INVALID FOR*06/21/2014 More... More... More... History of depression [Z86.59] INVALID FOR* More... More... More... More... More... More... More... Depression [F32.9] INVALID FOR* Pain in right hip [M25.551] INVALID FOR* More... Chronic pain of right hip [M25.551, G89.29] INVALID FOR* More... Nausea and vomiting [R11.2] INVALID FOR* More... Visit Notes: >> Patricia Arteaga RN [facility] May 22, 2018 3:25 PM Status: Signed REVIEW OF SYSTEMS: General: The patient notes fatigue, denies weight loss, denies weight gain, denies feeling hot, and denies feelings of cold. Eyes: The patient denies glaucoma, denies eye injury/surgery, wears glasses or contacts. Ear/Nose/Throat: The patient denies allergies, denies hayfever, denies ear infections, and notes bloody noses. Cardiovascular: The patient denies chest pain, denies heart disease, denies high blood pressure,denies cardiac stent, denies prior heart attack, denies irregular heart beat, denies high cholesterol, denies poor circulation, denies heart failure, other cardiac issues, denies claudication, denies cold feet, denies peripheral arterial stent. Respiratory: The patient denies tuberculosis, denies pneumonia, denies frequent cough, denies pulmonary embolism, denies shortness of breath, and denies coughing up blood. Gastrointestinal: The patient denies difficulty swallowing, notes acid reflux, notes ulcers, notes vomiting, denies jaundice/hepatitis, notes gallbladder problems, denies black or tarry stools, denies hemorrhoids, denies bleeding from rectum, denies diverticulitis, denies constipation, notes diarrhea, denies loss of stool control, and denies hernias. Kidney/Bladder: The patient notes kidney stones, denies urine infections, and denies bloody urine. Skin: The patient denies a history of skin cancer, denies bleeding/changing moles, and denies a history of skin rash. Neurologic: The patient denies a history of epilepsy/convulsions, denies headaches, denies head/spinal injuries, and denies stroke/TIA. Psychiatric: The patient denies psychiatric medications, denies depression, and denies voices, denies substance abuse. Endocrine: The patient denies thyroid disorders, notes diabetes, and denies hormonal problems. Hematologic: The patient denies a history of bruising, denies bleeding, and denies anemia, denies blood clots. Infections: The patient denies a history of measles and mumps, denies rheumatic fever, and denies sexually transmitted diseases. Musculoskeletal: The patient denies back pain/injury, denies back problems, denies sciatica, denies knee/foot trouble, denies arthritis, or denies gout. When was patient's last Mammogram screening? N/A Last Colonoscopy: no Patricia Arteaga RN Prescriptions ordered this encounter Disp Refills Start End PEG 3350-ELECTROLYTES 236 GRAM-22.74* 1 Roly* 0 05/22/2018 05/22/2018 Route: ORAL Sig: Take 4,000 mL by mouth one time only for 1 dose. Follow-up and Disposition History Recorded Encounter Status:Closed by MADELAINE HOBSON PA-C on 05/26/18 PROGRESS Observed: 05/22/2018 Status: COMPLETED Source: [place] 9:26 AM [facility] MAIN [place] REPOSITORY O ID: [id number] Author: Jeannette Bill Service: (none) Author Type: Registered Nurse Type: Progress Notes Filed: 05/28/2018 3:15 PM Note Text: PRIMARY CARE COORDINATION QUICK NOTE Provider Action/FYI EGD, C'scope planned in [place] Patient identified by name and date . LMOM for pt to return my call. She had LMOM having some questions for me. Discussed US of ovary with her. She has appt with surgery today and they will do an EGD and colonoscopy in [place] on her. JUNAID Observed: 05/22/2018 Status: COMPLETED Source: [place] 12:[address] [facility] REPOSITORY Patient Outreach (INTMWS) MIRZA DAIGLE ([id number]) 1990 F Date Time Provider Department 05/22/18 JEANNETTE BUSBY During your visit today, we recorded the following information about you: Jeannette Olmstead RN 05/28/2018 3:15 PM Signed PRIMARY CARE COORDINATION QUICK NOTE Provider Action/FYI EGD, C'scope planned in [place] Patient identified by name and date . LMOM for pt to return my call. She had LMOM having some questions for me. Discussed US of ovary with her. She has appt with surgery today and they will do an EGD and colonoscopy in [place] on her. Allergies As of Date: 05/22/2018 Noted Allergy Reaction ASPIRIN 09/18/2005 4 - Hives 8 - GI Upset paper tape [Other] 06/26/2005 2 - Rash 7 - Swelling 9 - Itching Comments: Area gets very red also PENICILLINS 05/11/2013 4 - Hives TRAMADOL 04/14/2018 14 - Other: See Comments Comments: Tachycardia Date Reviewed: 05/22/2018 Reviewed by: Patricia Arteaga RN - Fully Assessed Reason for Visit: Postpartum Rn Chronic Care [0342] Prescriptions as of 05/22/2018 Sig: ALCOHOL SWABS Use as directed up to 5 times* BLOOD SUGAR DIAGNOSTIC STRIPS Use as directed 4 times daily. COMPOUNDED PRESCRIPTION 1 Each as needed. Sharps Cont* COMPOUNDED PRESCRIPTION One Touch meter kit. ENTERIC CONTRAST (RADIOLOGY P* For CT ABD/PEL W IVCON Routin* ERGOCALCIFEROL (VITAMIN D2) 5* Take 1 capsule by mouth once * FAMOTIDINE 20 MG TABLET Take 1 tablet by mouth daily * INSULIN GLARGINE (U-100) 100 * Inject 40 Units subcutaneousl* PEN NEEDLE, DIABETIC 31 GAUGE* One daily with insulin IV CONTRAST (RADIOLOGY PROCED* CT ABD/PEL -Inject, intraveno* LANCETS Use as instructed LANCETS Test blood sugar(s) 5 times * LIRAGLUTIDE 0.6 MG/0.1 ML (18* Inject 1.8 mg subcutaneously * MELOXICAM 15 MG TABLET Take 1 tablet by mouth daily * METFORMIN ER 500 MG TABLET,EX* TAKE TWO TABLETS BY MOUTH WIT* ONDANSETRON HCL 8 MG TABLET Take 1 tablet by mouth every * EMPTY CONTAINER 1 Container as needed (to dis* EMPTY CONTAINER 1 Can twice daily. PANTOPRAZOLE 40 MG TABLET,DEL* Take 1 tablet by mouth once d* PRAVASTATIN 20 MG TABLET Take 1 tablet by mouth once d* TOPIRAMATE 25 MG SPRINKLE CAP* Take 1 capsule by mouth daily* Problem List As Of Date 05/22/2018 Noted Resolved Type 2 diabetes mellitus (HCC) [E11.9] INVALID FOR* More... More... More... Obesity, unspecified [E66.9] INVALID FOR* More... History of flank pain [Z87.898] INVALID FOR*06/21/2014 More... More... More... History of depression [Z86.59] INVALID FOR* More... More... More... More... More... More... More... Depression [F32.9] INVALID FOR* Pain in right hip [M25.551] INVALID FOR* More... Chronic pain of right hip [M25.551, G89.29] INVALID FOR* More... Nausea and vomiting [R11.2] INVALID FOR* More... Encounter Status:Closed by JEANNETTE BILL on 05/28/18 HOSP Observed: 05/22/2018 Status: COMPLETED Source: [place] 12:00 AM CLINIC OTHER CAMPUS REPOSITORY Patient:Mirza Daigle MRN: <[id number]> Height:5' 6.457(1.688 m) Weight:283 lb (128.368 kg) Outpatient Medications as of 05/28/18: Alcohol Swabs padm blood sugar diagnostic (FREESTYLE LITE STRIPS) test strip COMPOUNDED PRESCRIPTION COMPOUNDED PRESCRIPTION ergocalciferol, vitamin D2, (DRISDOL) 50,000 unit capsule famotidine (PEPCID) 20 mg tablet insulin glargine (BASAGLAR KWIKPEN U-100 INSULIN) 100 unit/mL (3 mL) inpn insulin needles, DISPOSABLE, (PEN NEEDLE) 31 gauge x 5/16 ndle Lancets (ONE TOUCH SURESOFT LANCING DEV) lancets Lancets (ONETOUCH ULTRASOFT LANCETS) lancets liraglutide (VICTOZA) 0.6 mg/ 0.1 ml subcutaneous pen injector meloxicam (MOBIC) 15 mg tablet metFORMIN ER (GLUCOPHAGE XR) 500 mg 24 hr tablet ondansetron (ZOFRAN) 8 mg tablet Oral Medication Containers (BD SHARPS PRIVATE BANKER) misc Oral Medication Containers (SHARPS CONTAINER) misc pantoprazole DR (PROTONIX) 40 mg tablet pravastatin (PRAVACHOL) 20 mg tablet topiramate (TOPAMAX) 25 mg capsule Admission/Clinic Administered Medications as of 05/28/18: NaCl 0.9% iv infusion Problem List: Type 2 diabetes mellitus (HCC) [E11.9] Obesity, unspecified [E66.9] History of depression [Z86.59] Depression [F32.9] Pain in right hip [M25.551] Chronic pain of right hip [M25.551, G89.29] Nausea and vomiting [R11.2] Allergies: Aspirin paper tape [Other] Penicillins Tramadol Date Verified: 05/28/18 Lab Values Lab Value Units Date High Low POTA* 3.7 mmol/L 05/21/2018 5.1 3.7 TAMMY* 40.7 % 05/21/2018 46.0 36.0 Progress Notes ([facility]): NEDRA MEEKS RDMS 05/23/2018 11:10 AM Signed Radiology Service Progress Note PATIENT NAME: Mirza Daigle DATE OF SERVICE: May 23, 2018 TIME: 11:09 AM PATIENT IDENTITY VERIFICATION COMPLETED USING TWO (2) METHODS: Patient confirmed name verbally and Date of . PATIENT GENDER DATA: Female. status: : No status: N/A PATIENT RELEVANT IMPLANT DATA REVIEWED: Not Applicable RADIOLOGY DEPARTMENT: Ultrasound PERIPHERAL IV DATA: Not applicable SIGNED BY: NEDRA MEEKS RDMS RVBrett May 23, 2018 11:09 AM Progress Notes ([facility]): Mino Moses 05/22/2018 4:16 PM Signed 05-28-2018 Colon/EGD Thalia Moses PROGRESS Observed: 05/21/2018 Status: COMPLETED Source: [place] 3:02 PM [facility] MA[facility] [place] REPOSITORY O ID: [id number] Author: Coral Roldan Ct Service: (none) Author Type: (none) Type: Progress Notes Filed: 05/21/2018 3:02 PM Note Text: Radiology Service Progress Note PATIENT NAME: Mirza Daigle DATE OF SERVICE: May 21, 2018 TIME: 3:02 PM PATIENT IDENTITY VERIFICATION COMPLETED USING TWO (2) METHODS: Patient confirmed name verbally and Date of . PATIENT GENDER DATA: Female. status: : No status: NO. PATIENT RELEVANT IMPLANT DATA REVIEWED: Not Applicable CONTRAST INDUCED NEPHROPATHY RISK FACTORS: Not applicable CREATININE: Creatinine Date Value Ref Range Status 05/21/2018 0.49 (L) 0.58 - 0.96 mg/dL Final 04/14/2018 0.46 (L) 0.58 - 0.96 mg/dL Final 03/04/2018 0.45 (L) 0.58 - 0.96 mg/dL Final eGFR-All Other Races Date Value Ref Range Status 05/21/2018 >60 . Final Comment: eGFR (Estimated GFR) Units of measure: mL/min/1.73 meters squared eGFR is derived from the reexpressed MDRD Study equation using the following parameters: serum creatinine, age, gender and race. The creatinine assay has been calibrated to be traceable to IDMS. An eGFR <60 mL/min/1.73m2 for >3 months is consistent with chronic kidney disease. Refer to KDOQI guidelines for clinical interpretation. In patients with unstable renal function, e.g. those with acute kidney injury, the eGFR may not accurately reflect actual GFR. eGFR- Date Value Ref Range Status 05/21/2018 >60 Final P.O.C.T. RESULTS: POC done: Yes, See Lab Tab May 21, 2018 RADIOLOGIST NOTIFIED?: No ALLERGIES: Reviewed and unchanged CONTRAST ALLERGY: NO. PERIPHERAL IV ACCESS: Ambulatory: IV type: A peripheral IV was started in the Left antecubital site with a Angio cath: 22 gauge., Site assessment: Clean,Dry and Intact, Site disposition Discontinued RADIOLOGY DEPARTMENT: CT; Exam(s) Completed: Abdomen/Pelvis SIGNED BY: Coral Roldan Ct May 21, 2018 3:[address] ABD/PEL W IVCON Observed: 05/21/2018 Status: F Source: [place] 2:40 PM [facility] REPOSITORY * * *Final Report* * * DATE OF EXAM: May 21 2018 2:40PM [facility] 0530 - CT ABD/PEL W IVCON / PROCEDURE REASON: Left upper quadrant pain * * * * Physician Interpretation * * * * EXAMINATION: CT ABDOMEN AND PELVIS WITH IV CONTRAST CLINICAL HISTORY: Left upper quadrant abdominal pain, vomiting TECHNIQUE: CT of the abdomen and pelvis was performed using standard technique, scanning from just above the dome of the diaphragm to the symphysis pubis. MQ: CTAP_3 Contrast: IV: 150 ml of Omnipaque 300 Oral: 50 ml of 50ML Omnipaque [address] Radiation dose: Integrated Dose-length product (DLP) for this visit = 1199 mGy*cm. CT Dose Reduction Employed: Automated exposure control(AEC) and iterative recon COMPARISON: None. RESULT: Liver: No mass. Generalized fatty infiltration. Ill-defined area of hypodensity in the medial segment of the left lobe adjacent to the falciform ligament is thought to be focal more marked steatosis. Biliary: Common duct is dilated up to 14 mm in the corey hepatis, which can sometimes be seen status post cholecystectomy. No intrahepatic biliary dilatation. Common duct does not appear dilated more distally within the head of the pancreas. Spleen: No mass. No splenomegaly. Pancreas: No mass or duct dilation. Adrenals: No mass. Kidneys: No hydronephrosis or mass. 2 punctate densities in the lower pole hilar area of the left kidney are thought to be nonobstructing collecting system calculi. GI tract: No dilation or wall thickening. Appendix appears normal Lymph nodes: No abdominal or pelvic lymphadenopathy. Mesentery/Peritoneum: No ascites or mass. Retroperitoneum: No mass. Vasculature: The celiac axis and SMA are patent. The portal vein and branches, splenic vein, SMV, and hepatic veins are patent. Pelvis: 4 cm hypodense left adnexal mass may be a cyst. Bones/Soft Tissues: Intact Lower thorax: Clear IMPRESSION: Left adnexal mass can be further evaluated by ultrasound. Fatty liver. Slightly dilated common bile duct can be correlated with hepatic function blood tests. Nonobstructing left intrarenal calculi Plastic Card Grader Cardroom: [facility] Transcribe Date/Time: May 21 2018 3:13P Dictated by : STACY BARLOW MD This examination was interpreted and the report reviewed and electronically signed by: STACY BARLOW MD on May 21 2018 3:24PM EST [id number] Observed: 05/21/2018 Status: COMPLETED Source: [place] 1:[address] [facility] REPOSITORY HNO ID: [id number] Author: Jeannette Bill Service: (none) Author Type: Registered Nurse Type: Progress Notes Filed: 05/21/2018 5:07 PM Note Text: PRIMARY CARE COORDINATION IN OFFICE VISIT WITH PCP Patient has been identified by name and date of . PCP Assessment/Plan: Reviewed PCP plan with patient using Teach Back Pt to get CT, Surg consult, labs. PCC Plan of Care: Patient concerns: States she has constant LUQ pain. Patient goals: to stop N/V/D PCC Interventions: Schedule CT for today, surgical consult for scopes tomorrow. Enc pt to drink water. Next Office Visit: 06/30/2018 Plan For Next Call: tomorrow with lab results. Jeannette Bill cardiopulmonary technologist Postpartum Rn Internal Medicine [facility] May 21, 2018 PROGRESS Observed: 05/21/2018 Status: COMPLETED Source: [place] 11:13 AM [facility] MA[facility] [place] REPOSITORY HNO ID: [id number] Author: Tara Roman Service: (none) Author Type: Nurse Practitioner Type: Progress Notes Filed: 05/21/2018 11:13 AM Note Text: Seen at office visit today. Tara Roman APRN.LAI COMP METABOLIC PANEL Collected: 05/21/2018 Status: F Source: [place] 10:24 AM [facility] [place] REPOSITORY TYPE CODE TESTS RESULT OUT OF REFERENCE UNITS RANGE LAB TP 6.3-8.0 g/dL Protein, Total 6.9 LAB ALB 3.9-4.9 g/dL Albumin 4.4 LAB CA 8.5-10.2 mg/dL Calcium, Total 9.3 LAB TBIL 0.2-1.3 mg/dL Bilirubin, Total 1.2 LAB ALKP 34-123 U/L Alkaline Phosphatase 80 LAB AST 13-35 U/L AST 25 LAB GLU 74-99 mg/dL Glucose High 112 LAB BUN 7-21 mg/dL BUN 9 LAB CRET 0.58-0.96 mg/dL Creatinine Low 0.49 LAB NA 136-144 mmol/L Sodium 139 LAB K 3.7-5.1 mmol/L Potassium 3.7 LAB CL 97-105 mmol/L Chloride 103 LAB CO2 22-30 mmol/L CO2 23 LAB AGAP mmol/L Anion Gap 13 LAB ALT 7-38 U/L ALT 29 LAB GFRAA eGFR- >60 Amer. LAB GFRNAA . eGFR-All Other Races >60 Result Comment: eGFR (Estimated GFR) Units of measure: mL/min/1.73 meters squared eGFR is derived from the reexpressed MDRD Study equation using the following parameters: serum creatinine, age, gender and race. The creatinine assay has been calibrated to be traceable to IDMS. An eGFR <60 mL/min/1.73m2 for >3 months is consistent with chronic kidney disease. Refer to KDOQI guidelines for clinical interpretation. In patients with unstable renal function, e.g. those with acute kidney injury, the eGFR may not accurately reflect actual GFR. CBC AND DIFFERENTIAL Collected: 05/21/2018 Status: F Source: [place] 10:24 AM [facility] REPOSITORY TYPE CODE TESTS RESULT OUT OF REFERENCE UNITS RANGE LAB WBC 3.70-11.00 k/uL WBC High 11.06 LAB RBC 3.90-5.20 m/uL RBC 4.39 LAB HGB 11.5-15.5 g/dL Hemoglobin 14.0 LAB HCT 36.0-46.0 % Hematocrit 40.7 LAB MCV 80.0-100.0 fL MCV 92.7 LAB MCH 26.0-34.0 pG MCH 31.9 LAB MCHC 30.5-36.0 g/dL MCHC 34.4 LAB RDWCV 11.5-15.0 % RDW-CV 12.9 LAB PLTCT 150-400 k/uL Platelet Count 351 LAB MPV 9.0-12.7 fL MPV 9.5 LAB ANEUT % Neut% 60.3 LAB AANEUT 1.45-7.50 k/uL Abs Neut 6.67 LAB ALYMP % Lymph% 31.0 LAB AALYMP 1.00-4.00 k/uL Abs Lymph 3.43 LAB AMONO % Worth% 6.7 LAB AAMONO <0.87 k/uL Abs Worth 0.74 LAB AEOS % Eosin% 1.7 LAB AAEOS <0.46 k/uL Abs Eosin 0.19 LAB ABASO % Baso% 0.3 LAB AABASO <0.11 k/uL Abs Baso 0.03 LAB AUNRBC 0 /100 WBC NRBCs 0.0 LAB ABNRBC <0.01 k/uL Absolute nRBC <0.01 LAB DTYP DTYPE Auto Diff Performed By: #### CBCDIF, HPYGA #### [facility] [address] [place], [place] [address] H PYLORI ABS IGG,IGA Collected: 05/21/2018 Status: F Source: [place] 10:[address] [facility] REPOSITORY TYPE CODE TESTS RESULT OUT OF REFERENCE UNITS RANGE LAB HPYLRL Negative H. pylori Negative IgG, Qual Result Comment: H. pylori IgG antibodies were not detected in the sample. Negative results by this test do not preclude recent primary infection. LAB HPYLR U/mL H pylori Ab, IgG <0.4 Result Comment: U/mL are interpreted as follows: Negative specimens <0.9 Indeterminate specimens >=0.9 to <1.1 Positive specimens >=1.1 Results were obtained with the IMMULITE 2000 H.pylori IgG EIA. Results obtained from other manufacturers' assay methods may not be used interchangeably. LAB HPYLAL Negative H. Negative pylori IgA, Qual Result Comment: No IgA antibodies to H. pylori were detected or levels were below the detection limit of the assay. The H. pylori IgA assay should be performed and interpreted in conjunction with an H. pylori IgG assay. LAB HPYLA UNITS H pylori Ab, IgA 11 Result Comment: Units are interpreted as follows: Negative specimens 0.0 to 20.0 Equivocal specimens 20.1 to 24.9 Positive specimens >24.9 Results were obtained with the Ad [employer] QUANTA Lite H. pylori IgA YUNG kit. IgA values obtained with different manufacturers' assay methods may not be used interchangeably. The magnitude of the reported I gA levels cannot be correlated to endpoint titer. Performed By: #### CBCDIF, HPYGA #### [facility] [address] [place], [place] [address] CNOV Observed: 05/21/2018 Status: COMPLETED Source: [place] 9:[address] [facility] REPOSITORY Office Visit (FAMPWS) MIRZA DAIGLE ([id number]) 1990 F Date Time Provider Department 05/21/18 9:40 AM TARA ROMAN ([facility] During your visit today, we recorded the following information about you: Pulse Respiration Blood pressure Weight 78/minute 14/minute 134/76 126.6 kg Tara Roman APRN.CNP 05/21/2018 11:03 AM Signed This is a 28 year old female who presents today with: Patient presents with: ED Follow-up HISTORY OF PRESENT ILLNESS: Mirza Daigle is a 28 year old female. Patient presents with: ED Follow-up Visit with urgent care physician assistant present after patient permission. Pt presents today with complaint of stomach discomfort, vomiting and diarrhea. Initially woke up with the onset of left upper quad pain. This started two days prior to her ER presentation on 05/13/18. Refers that when she eats/drinks anything, it hurt on her left side. Then, her whole stomach will have cramping and then will either vomit or have diarrhea. Refers that symptoms only occur after she eats or drinks anything. It is affecting sleep -- reports cannot get comfortable between her abdomin hurting and her chronic hip pain. She reports that the watery diarrhea started 5 days ago. She denies melena/hematochezia. Denies any new foods. She denies anyone else in the house is sick. She denies any recent resp infection. Refers that she is taking her PPI. Leaning forward so that her stomach is splinted, helps the discomfort. Using zofran, which helps sometimes. Has not vomited yet today, however, hasn't eaten anything. Refers that she has had watery diarrhea about 4 times today. Denies any recent antibiotic use. No fevers/chills. Last 2 Encounter Wt Readings: Date: Wt: 05/21/2018 126.6 kg (279 lb) 04/26/2018 129.7 kg (286 lb) PAST MEDICAL HISTORY: PAST MEDICAL HISTORY Diagnosis Date - Anemia WITH 2ND - Asthma since 14 years old, inhaler PRN - Complex ovarian cyst - Needs follow up imaging 06/09/2013 06/09/2013 An ultrasound was done 06/04/2013 that revealed a 6w5d fetus with DELFINA of 01/24/14. There is fluid seen adjacent to the gestastional sac possible subchorionic hemorrhage. the left ovary is within normal limits but the right ovary contains a 3.8 x 3 x 3.3 cm moderately complex cyst. TKRN 01/15/2014 - Confirmed 9 x 7 x 2.5 cm multi-loculated cyst at the time of . Needs outpatient follow up via TVUS. - Congenital hip deformity right - Diabetes, gestational insulin controlled - Family history of defects 06/09/2013 06/09/2013Patient's mother born with spina bifida. Patient's brother born with a hole in his heart. Patient has another brother that was born with Down syndrome. Patient and her brother born with a congenital hip deformity. Patient has had multiple corrective surgeries for the hip deformity.TKRN - Family history of Down syndrome 06/21/2014 Brother with DS - Family history of spina bifida 06/21/2014 Mom with Spina bifida in wheelchair - Gall stones 2007 Gall bladder removed - History of asthma 06/09/2013 06/09/2013Patient has a history of asthma. She uses an albuterol inhaler when necessary. TKRN - History of 06/09/2013 06/09/2013 Pt had 3 previous C sections. - History of kidney stones - Nausea/vomiting in 06/09/2013 06/09/2013She states she has nausea . Advised patient to call/come in if she has persistent vomiting or if her blood sugars were less than 70. TKRN - Ovarian cyst during 07/21/2014 07/21/14: see NT ultrasound: Right ovarian cyst 6cm - Pain in joint, pelvic region and thigh 01/10/2006 - Pancreatitis - Patient requested diagnostic testing 06/09/2013 06/09/2013 Patient desires early screening in with sequential testing. TKRN - depression - Prior macrosomia, antepartum 06/21/2014 - Short interval between pregnancies complicating , antepartum 06/09/2013 06/09/2013Nikki delivered her previous child August 14, 2012.TKRN - Type 2 diabetes mellitus (HCC) 05/22/2013 - Type 2 diabetes mellitus complicating , antepartum 05/28/2013 06/09/2013Nikki has a history of diabetes diagnosed 4 years ago. She was unaware that she was until she went into labor with her first . With her second she started insulin during the second trimester. She was referred to Dr. Tejada at [facility] for poorly controlled diabetes on metformin alone. She has since started insulin and has an appointment today with Dr. Guevara for followup. She has been keeping track of her blood sugars and presents with a journal today and these blood sugars are copy off and given to Dr. Guevara for his review. I have discussed with the patient the importance of good control of her blood sugars during and keeping a blood sugar log for review by the Doctor. She is reminded that she is to send her blood sugars in weekly to Dr. Guevara and she is to call sooner than a week if she has persistently high, greater the 180, or low blood sugars, less than 70. She is provided with a blood sugar log today. She has not had a diabetic foot or eye exam rece PAST SURGICAL HISTORY Procedure Laterality Date - DELIVERY ONLY , low transverse x3 - DELIVERY ONLY 01/19/15 , low transverse - IANDD ABSC; SMPL OR SGL 05/2013 cyst on left upper chest - LAPAROSCOPIC CHOLEYCYSTECTOMY Cholecystectomy, lap - PAST SURGICAL HISTORY OF tubes in ears per Dr Crockett at [facility] - PAST SURGICAL HISTORY OF Tonsils and Adenoids removed per Dr Crockett at [facility] - PAST SURGICAL HISTORY OF [address] Marroquin at [facility] and one by Dr. Camacho in [place] - REMOVAL OF OVARY/TUBE(S) 01/19/15 Salpingo-oophorectomy, right ovarian mass ALLERGIES Aspirin; Paper Tape [Other]; Penicillins; Tramadol MEDICATIONS Current Outpatient Prescriptions: Alcohol Swabs padm Use as directed up to 5 times daily DM: yes Insulin: yes DX: E.11.9 blood sugar diagnostic (FREESTYLE LITE STRIPS) test strip Use as directed 4 times daily. COMPOUNDED PRESCRIPTION 1 Each as needed. Sharps Container. Dx:Diabetes mellitus, antepartum (648.03) COMPOUNDED PRESCRIPTION One Touch meter kit. ergocalciferol, vitamin D2, (DRISDOL) 50,000 unit capsule Take 1 capsule by mouth once each week. famotidine (PEPCID) 20 mg tablet Take 1 tablet by mouth daily at bedtime. insulin glargine (BASAGLAR KWIKPEN U-100 INSULIN) 100 unit/mL (3 mL) inpn Inject 40 Units subcutaneously daily at bedtime. insulin needles, DISPOSABLE, (PEN NEEDLE) 31 gauge x 5/16 ndle One daily with insulin Lancets (ONE TOUCH SURESOFT LANCING DEV) lancets Use as instructed Lancets (ONETOUCH ULTRASOFT LANCETS) lancets Test blood sugar(s) 5 times daily. Dx: Type 2 DM - Controlled E11.9 , Insulin: yes liraglutide (VICTOZA) 0.6 mg/ 0.1 ml subcutaneous pen injector Inject 1.8 mg subcutaneously once daily. meloxicam (MOBIC) 15 mg tablet Take 1 tablet by mouth daily with food. metFORMIN ER (GLUCOPHAGE XR) 500 mg 24 hr tablet TAKE TWO TABLETS BY MOUTH WITH BREAKFAST AND TWO TABLETS WITH SUPPER Oral Medication Containers (BD SHARPS PRIVATE BANKER) misc 1 Container as needed (to disopse of insulin needles). Oral Medication Containers (SHARPS CONTAINER) misc 1 Can twice daily. pantoprazole DR (PROTONIX) 40 mg tablet Take 1 tablet by mouth once daily. pravastatin (PRAVACHOL) 20 mg tablet Take 1 tablet by mouth once daily. topiramate (TOPAMAX) 25 mg capsule Take 1 capsule by mouth daily at bedtime. No current facility-administered medications for this visit. FAMILY HISTORY Problem Relation Age of Onset - Diabetes Mother - Hypertension Mother - other (spina bifida) Mother - Heart Father - Hypertension Father - Cancer Maternal Grandmother - Alcohol/Drug Maternal Grandmother - Heart Paternal Grandmother - Aneurysm Paternal Grandmother - Stroke Brother - other (Down Syndrome) Brother - other (autism) Brother step brother - seizures and cerebral palsy also - other (Open family hx of Neural Tube Defect) Brother Social History Marital status: Single Spouse name: Years of education: 10 Number of children: 2 Occupational History Occupation Employer Comment [employer]OMEM[employer] Social History Main Topics Smoking status: Never Smoker Smokeless tobacco: Never Used Comment: mom's marquise smokes outside Alcohol use: No Drug use: No Sexual activity: Yes Partners with: Male EXAM: BP 134/76 (BP Site: Left Arm, BP Position: Sitting, BP Cuff Size: Large Adult) Pulse 78 Resp 14 Wt 126.6 kg (279 lb) BMI 44.41 kg/m? PHYSICAL EXAM: General Appearance: Well appearing, alert, in no acute distress, well-hydrated, well nourished. Skin: Skin color, texture, turgor normal, no suspicious rashes or lesions. Head: Normocephalic, no masses, lesions, tenderness or abnormalities. Eyes: Anicteric sclera. Extraocular movements are intact. . Lungs: lungs clear to auscultation. No wheezing, rhonchi, rales. Heart: RRR without murmur, gallop, or rubs. No ectopy. Abdomen: Abdomen soft. + tenderness in the left quads (upper > lower). Bowel sounds normal. No masses, organomegaly. No rebound/guarding. No CVA tenderness. Extremities: No deformities, edema, skin discoloration, clubbing or cyanosis. Good capillary refill. . Neurologic: Gait normal. ASSESSMENT/PLAN: 1. Left upper quadrant pain - ICD9: 789.02, ICD10: R10.12 (primary diagnosis) Pt with 10-11 days of left sided abdominal pain and vomiting and five days of watery diarrhea. Will get imaging to r/o colitis or diverticulitis. Get updated labs. Urine dip with + ketones -- encouraged to push fluids. - CT ABD/PEL W IVCON - IV CONTRAST (RADIOLOGY PROCEDURE) - ENTERIC CONTRAST (RADIOLOGY PROCEDURE) - CBC + DIFF - COMP METABOLIC PANEL - H PYLORI ABS, IGG AND IGA - UA DIP, URINE (POC) 2. Nausea and vomiting, intractability of vomiting not specified, unspecified vomiting type - ICD9: 787.01, ICD10: R11.2 zofran to the pharmacy. - CONSULT TO GENERAL SURGERY - ONDANSETRON HCL 8 MG TABLET 3. Diarrhea, unspecified type - ICD9: 787.91, ICD10: R19.7 - CONSULT TO GENERAL SURGERY - ? Scope. Discussed treatment plan and patient voices understanding. Patient's questions answered appropriately. Medications and potential side effects were discussed and patient voices understanding. Return to the office as scheduled or as needed for worsening/no improvement. KATHARINE Lucas APRN.CNP 05/21/2018 2:34 PM Signed Addended by: TARA ROMAN CNP on: 05/21/2018 02:34 PM Modules accepted: Orders Referring Provider: SUNNY WELLS [[id number]] Allergies As of Date: 05/21/2018 Noted Allergy Reaction ASPIRIN 09/18/2005 4 - Hives 8 - GI Upset paper tape [Other] 06/26/2005 2 - Rash 7 - Swelling 9 - Itching Comments: Area gets very red also PENICILLINS 05/11/2013 4 - Hives TRAMADOL 04/14/2018 14 - Other: See Comments Comments: Tachycardia Date Reviewed: 05/21/2018 Reviewed by: Kaylin Molina Graphic Manager - Fully Assessed Reason for Visit: ED Follow-up [821] Primary Visit Diagnosis:Left upper quadrant pain [R10.12] Other Visit Diagnoses:Nausea and vomiting, intractability of vomiting not specified, unspecified vomiting type [R11.2] Diarrhea, unspecified type [R19.7] Order(s):CT ABD/PEL W IVCON [5308862] Order #: [id number] FUTURE iv contrast (will be provided with radiology test)CT ABD/PEL -Inject, intravenously, once for 1 dose.No IV access, insert saline lock prior to the beginning of sedation, infusion, injection of imaging exam. Discontinue saline lock post exam. If Pt. has a central line or IVAD, may access for administration according to line specific nursing protocol. Once exam is complete flush line and de- access according to line specific nursing protocol in the CT contrast administration guidelines link.Disp: 1 EachRfl: 0 enteric contrast (will be provided with radiology test)For CT ABD/PEL W IVCON Routine order Administer, As Directed One Time Only, via Oral, Rectal, both Oral and Rectal, Enteric Tube, Stoma or Indwelling Catheter, Enteric Contrast as designated per enteric contrast guidelinesDisp: 1 EachRfl: 0 CBC + DIFF [SQCBCDIF] Order #: [id number] FUTURE COMP METABOLIC PANEL [SQCMP] Order #: [id number] FUTURE H PYLORI ABS, IGG AND IGA [SQHPYGA] Order #: [id number] FUTURE CONSULT TO GENERAL SURGERY [9011] Order #: [id number]: 1 ondansetron (ZOFRAN) 8 mg tabletTake 1 tablet by mouth every 8 hours as needed.Disp: 40 tabletRfl: 0 UA DIP, URINE (POC) [0427012] Order #: [id number]. #:[id number] URINE CULTURE [SQURCUL] Order #: [id number] Prescriptions as of 05/21/2018 Sig: ALCOHOL SWABS Use as directed up to 5 times* BLOOD SUGAR DIAGNOSTIC STRIPS Use as directed 4 times daily. COMPOUNDED PRESCRIPTION 1 Each as needed. Sharps Cont* COMPOUNDED PRESCRIPTION One Touch meter kit. ERGOCALCIFEROL (VITAMIN D2) 5* Take 1 capsule by mouth once * FAMOTIDINE 20 MG TABLET Take 1 tablet by mouth daily * INSULIN GLARGINE (U-100) 100 * Inject 40 Units subcutaneousl* PEN NEEDLE, DIABETIC 31 GAUGE* One daily with insulin LANCETS Use as instructed LANCETS Test blood sugar(s) 5 times * LIRAGLUTIDE 0.6 MG/0.1 ML (18* Inject 1.8 mg subcutaneously * MELOXICAM 15 MG TABLET Take 1 tablet by mouth daily * METFORMIN ER 500 MG TABLET,EX* TAKE TWO TABLETS BY MOUTH WIT* EMPTY CONTAINER 1 Container as needed (to dis* EMPTY CONTAINER 1 Can twice daily. PANTOPRAZOLE 40 MG TABLET,DEL* Take 1 tablet by mouth once d* PRAVASTATIN 20 MG TABLET Take 1 tablet by mouth once d* TOPIRAMATE 25 MG SPRINKLE CAP* Take 1 capsule by mouth daily* ENTERIC CONTRAST (RADIOLOGY P* For CT ABD/PEL W IVCON Routin* IV CONTRAST (RADIOLOGY PROCED* CT ABD/PEL -Inject, intraveno* ONDANSETRON HCL 8 MG TABLET Take 1 tablet by mouth every * Problem List As Of Date 05/21/2018 Noted Resolved Type 2 diabetes mellitus (HCC) [E11.9] INVALID FOR* More... More... More... Obesity, unspecified [E66.9] INVALID FOR* More... History of flank pain [Z87.898] INVALID FOR*06/21/2014 More... More... More... History of depression [Z86.59] INVALID FOR* More... More... More... More... More... More... More... Depression [F32.9] INVALID FOR* Pain in right hip [M25.551] INVALID FOR* More... Chronic pain of right hip [M25.551, G89.29] INVALID FOR* More... Prescriptions ordered this encounter Disp Refills Start End IV CONTRAST (RADIOLOGY PROCEDURE) 1 Ea* 0 05/21/2018 05/22/2018 Class: In Office Sig: CT ABD/PEL -Inject, intravenously, once for 1 dose.No IV access, insert saline lock prior to the beginning of sedation, infusion, injection of imaging exam. Discontinue saline lock post exam. If Pt. has a central line or IVAD, may access for administration according to line specific nursing protocol. Once exam is complete flush line and de-access according to line specific nursing protocol in the CT contrast administration guidelines link. ENTERIC CONTRAST (RADIOLOGY PROCEDUR* 1 Ea* 0 05/21/2018 05/22/2018 Class: In Office Sig: For CT ABD/PEL W IVCON Routine order Administer, As Directed One Time Only, via Oral, Rectal, both Oral and Rectal, Enteric Tube, Stoma or Indwelling Catheter, Enteric Contrast as designated per enteric contrast guidelines ONDANSETRON HCL 8 MG TABLET 40 t* 0 05/21/2018 Route: ORAL Sig: Take 1 tablet by mouth every 8 hours as needed. Encounter Status:Closed by TARA ROMAN CNP on 05/21/18 PROGRESS Observed: 05/21/2018 Status: COMPLETED Source: [place] 9:[address] [facility] REPOSITORY O ID: [id number] Author: Tara (Lai) Haagen Service: (none) Author Type: Nurse Practitioner Type: Progress Notes Filed: 05/21/2018 11:03 AM Note Text: This is a 28 year old female who presents today with: Patient presents with: ED Follow-up HISTORY OF PRESENT ILLNESS: Mirza Daigle is a 28 year old female. Patient presents with: ED Follow-up Visit with urgent care physician assistant present after patient permission. Pt presents today with complaint of stomach discomfort, vomiting and diarrhea. Initially woke up with the onset of left upper quad pain. This started two days prior to her ER presentation on 05/13/18. Refers that when she eats/drinks anything, it hurt on her left side. Then, her whole stomach will have cramping and then will either vomit or have diarrhea. Refers that symptoms only occur after she eats or drinks anything. It is affecting sleep -- reports cannot get comfortable between her abdomin hurting and her chronic hip pain. She reports that the watery diarrhea started 5 days ago. She denies melena/hematochezia. Denies any new foods. She denies anyone else in the house is sick. She denies any recent resp infection. Refers that she is taking her PPI. Leaning forward so that her stomach is splinted, helps the discomfort. Using zofran, which helps sometimes. Has not vomited yet today, however, hasn't eaten anything. Refers that she has had watery diarrhea about 4 times today. Denies any recent antibiotic use. No fevers/chills. Last 2 Encounter Wt Readings: Date: Wt: 05/21/2018 126.6 kg (279 lb) 04/26/2018 129.7 kg (286 lb) PAST MEDICAL HISTORY: PAST MEDICAL HISTORY Diagnosis Date - Anemia WITH 2ND - Asthma since 14 years old, inhaler PRN - Complex ovarian cyst - Needs follow up imaging 06/09/2013 06/09/2013 An ultrasound was done 06/04/2013 that revealed a 6w5d fetus with DELFINA of 01/24/14. There is fluid seen adjacent to the gestastional sac possible subchorionic hemorrhage. the left ovary is within normal limits but the right ovary contains a 3.8 x 3 x 3.3 cm moderately complex cyst. TKRN 01/15/2014 - Confirmed 9 x 7 x 2.5 cm multi-loculated cyst at the time of . Needs outpatient follow up via TVUS. - Congenital hip deformity right - Diabetes, gestational insulin controlled - Family history of defects 06/09/2013 06/09/2013Patient's mother born with spina bifida. Patient's brother born with a hole in his heart. Patient has another brother that was born with Down syndrome. Patient and her brother born with a congenital hip deformity. Patient has had multiple corrective surgeries for the hip deformity.TKRN - Family history of Down syndrome 06/21/2014 Brother with DS - Family history of spina bifida 06/21/2014 Mom with Spina bifida in wheelchair - Gall stones 2007 Gall bladder removed - History of asthma 06/09/2013 06/09/2013Patient has a history of asthma. She uses an albuterol inhaler when necessary. TKRN - History of 06/09/2013 06/09/2013 Pt had 3 previous C sections. - History of kidney stones - Nausea/vomiting in 06/09/2013 06/09/2013She states she has nausea . Advised patient to call/come in if she has persistent vomiting or if her blood sugars were less than 70. TKRN - Ovarian cyst during 07/21/2014 07/21/14: see NT ultrasound: Right ovarian cyst 6cm - Pain in joint, pelvic region and thigh 01/10/2006 - Pancreatitis - Patient requested diagnostic testing 06/09/2013 06/09/2013 Patient desires early screening in with sequential testing. TKRN - depression - Prior macrosomia, antepartum 06/21/2014 - Short interval between pregnancies complicating , antepartum 06/09/2013 06/09/2013Nikki delivered her previous child August 14, 2012.TKRN - Type 2 diabetes mellitus (HCC) 05/22/2013 - Type 2 diabetes mellitus complicating , antepartum 05/28/2013 06/09/2013Nikki has a history of diabetes diagnosed 4 years ago. She was unaware that she was until she went into labor with her first . With her second she started insulin during the second trimester. She was referred to Dr. Tejada at [facility] for poorly controlled diabetes on metformin alone. She has since started insulin and has an appointment today with Dr. Guevara for followup. She has been keeping track of her blood sugars and presents with a journal today and these blood sugars are copy off and given to Dr. Guevara for his review. I have discussed with the patient the importance of good control of her blood sugars during and keeping a blood sugar log for review by the Doctor. She is reminded that she is to send her blood sugars in weekly to Dr. Guevara and she is to call sooner than a week if she has persistently high, greater the 180, or low blood sugars, less than 70. She is provided with a blood sugar log today. She has not had a diabetic foot or eye exam rece PAST SURGICAL HISTORY Procedure Laterality Date - DELIVERY ONLY , low transverse x3 - DELIVERY ONLY 01/19/15 , low transverse - IANDD ABSC; SMPL OR SGL 05/2013 cyst on left upper chest - LAPAROSCOPIC CHOLEYCYSTECTOMY Cholecystectomy, lap - PAST SURGICAL HISTORY OF tubes in ears per Dr Crockett at [facility] - PAST SURGICAL HISTORY OF Tonsils and Adenoids removed per Dr Crockett at [facility] - PAST SURGICAL HISTORY OF [address] Marroquin at [facility] and one by Dr. Camacho in [place] - REMOVAL OF OVARY/TUBE(S) 01/19/15 Salpingo-oophorectomy, right ovarian mass ALLERGIES Aspirin; Paper Tape [Other]; Penicillins; Tramadol MEDICATIONS Current Outpatient Prescriptions: Alcohol Swabs padm Use as directed up to 5 times daily DM: yes Insulin: yes DX: E.11.9 blood sugar diagnostic (FREESTYLE LITE STRIPS) test strip Use as directed 4 times daily. COMPOUNDED PRESCRIPTION 1 Each as needed. Sharps Container. Dx:Diabetes mellitus, antepartum (648.03) COMPOUNDED PRESCRIPTION One Touch meter kit. ergocalciferol, vitamin D2, (DRISDOL) 50,000 unit capsule Take 1 capsule by mouth once each week. famotidine (PEPCID) 20 mg tablet Take 1 tablet by mouth daily at bedtime. insulin glargine (BASAGLAR KWIKPEN U-100 INSULIN) 100 unit/mL (3 mL) inpn Inject 40 Units subcutaneously daily at bedtime. insulin needles, DISPOSABLE, (PEN NEEDLE) 31 gauge x 5/16 ndle One daily with insulin Lancets (ONE TOUCH SURESOFT LANCING DEV) lancets Use as instructed Lancets (ONETOUCH ULTRASOFT LANCETS) lancets Test blood sugar(s) 5 times daily. Dx: Type 2 DM - Controlled E11.9 , Insulin: yes liraglutide (VICTOZA) 0.6 mg/ 0.1 ml subcutaneous pen injector Inject 1.8 mg subcutaneously once daily. meloxicam (MOBIC) 15 mg tablet Take 1 tablet by mouth daily with food. metFORMIN ER (GLUCOPHAGE XR) 500 mg 24 hr tablet TAKE TWO TABLETS BY MOUTH WITH BREAKFAST AND TWO TABLETS WITH SUPPER Oral Medication Containers (BD SHARPS PRIVATE BANKER) misc 1 Container as needed (to disopse of insulin needles). Oral Medication Containers (SHARPS CONTAINER) misc 1 Can twice daily. pantoprazole DR (PROTONIX) 40 mg tablet Take 1 tablet by mouth once daily. pravastatin (PRAVACHOL) 20 mg tablet Take 1 tablet by mouth once daily. topiramate (TOPAMAX) 25 mg capsule Take 1 capsule by mouth daily at bedtime. No current facility-administered medications for this visit. FAMILY HISTORY Problem Relation Age of Onset - Diabetes Mother - Hypertension Mother - other (spina bifida) Mother - Heart Father - Hypertension Father - Cancer Maternal Grandmother - Alcohol/Drug Maternal Grandmother - Heart Paternal Grandmother - Aneurysm Paternal Grandmother - Stroke Brother - other (Down Syndrome) Brother - other (autism) Brother step brother - seizures and cerebral palsy also - other (Open family hx of Neural Tube Defect) Brother Social History Marital status: Single Spouse name: Years of education: 10 Number of children: 2 Occupational History Occupation Employer Comment HOMEMAKER Social History Main Topics Smoking status: Never Smoker Smokeless tobacco: Never Used Comment: mom's fiance smokes outside Alcohol use: No Drug use: No Sexual activity: Yes Partners with: Male EXAM: BP 134/76 (BP Site: Left Arm, BP Position: Sitting, BP Cuff Size: Large Adult) Pulse 78 Resp 14 Wt 126.6 kg (279 lb) BMI 44.41 kg/m? PHYSICAL EXAM: General Appearance: Well appearing, alert, in no acute distress, well-hydrated, well nourished. Skin: Skin color, texture, turgor normal, no suspicious rashes or lesions. Head: Normocephalic, no masses, lesions, tenderness or abnormalities. Eyes: Anicteric sclera. Extraocular movements are intact. . Lungs: lungs clear to auscultation. No wheezing, rhonchi, rales. Heart: RRR without murmur, gallop, or rubs. No ectopy. Abdomen: Abdomen soft. + tenderness in the left quads (upper > lower). Bowel sounds normal. No masses, organomegaly. No rebound/guarding. No CVA tenderness. Extremities: No deformities, edema, skin discoloration, clubbing or cyanosis. Good capillary refill. . Neurologic: Gait normal. ASSESSMENT/PLAN: 1. Left upper quadrant pain - ICD9: 789.02, ICD10: R10.12 (primary diagnosis) Pt with 10-11 days of left sided abdominal pain and vomiting and five days of watery diarrhea. Will get imaging to r/o colitis or diverticulitis. Get updated labs. Urine dip with + ketones -- encouraged to push fluids. - CT ABD/PEL W IVCON - IV CONTRAST (RADIOLOGY PROCEDURE) - ENTERIC CONTRAST (RADIOLOGY PROCEDURE) - CBC + DIFF - COMP METABOLIC PANEL - H PYLORI ABS, IGG AND IGA - UA DIP, URINE (POC) 2. Nausea and vomiting, intractability of vomiting not specified, unspecified vomiting type - ICD9: 787.01, ICD10: R11.2 zofran to the pharmacy. - CONSULT TO GENERAL SURGERY - ONDANSETRON HCL 8 MG TABLET 3. Diarrhea, unspecified type - ICD9: 787.91, ICD10: R19.7 - CONSULT TO GENERAL SURGERY - ? Scope. Discussed treatment plan and patient voices understanding. Patient's questions answered appropriately. Medications and potential side effects were discussed and patient voices understanding. Return to the office as scheduled or as needed for worsening/no improvement. Tara Roman APRN.EDUCATIONAL TECHNOLOGY SPECIALIST Observed: 05/21/2018 Status: F Source: [place] URINE CULTURE 4:[address] [facility] REPOSITORY Sp. Request/Comment: - Specimen received in preservative Culture Result - 50,000 - <100,000 CFU/ml Normal urogenital cintia Performed By: #### URCUL #### [facility] [address], [place] [address] CNPTOUTREACH Observed: 05/21/2018 Status: COMPLETED Source: [place] 12:[address] [facility] REPOSIT[facility] Patient Outreach (INTMWS) MIRZA DAIGLE ([id number]) 1990 F Date Time Provider Department 05/21/18 JEANNETTE BUSBY During your visit today, we recorded the following information about you: Jeannette Olmstead RN 05/21/2018 5:07 PM Signed PRIMARY CARE COORDINATION IN OFFICE VISIT WITH PCP Patient has been identified by name and date of . PCP Assessment/Plan: Reviewed PCP plan with patient using Teach Back Pt to get CT, Surg consult, labs. PCC Plan of Care: Patient concerns: States she has constant LUQ pain. Patient goals: to stop N/V/D PCC Interventions: Schedule CT for today, surgical consult for scopes tomorrow. Enc pt to drink water. Next Office Visit: 06/30/2018 Plan For Next Call: tomorrow with lab results. Jeannette Bill cardiopulmonary technologist Postpartum Rn Internal Medicine [facility] May 21, 2018 Allergies As of Date: 05/21/2018 Noted Allergy Reaction ASPIRIN 09/18/2005 4 - Hives 8 - GI Upset paper tape [Other] 06/26/2005 2 - Rash 7 - Swelling 9 - Itching Comments: Area gets very red also PENICILLINS 05/11/2013 4 - Hives TRAMADOL 04/14/2018 14 - Other: See Comments Comments: Tachycardia Date Reviewed: 05/21/2018 Reviewed by: Kaylin Molina Graphic Manager - Fully Assessed Reason for Visit: Postpartum Rn Chronic Care [9970] Prescriptions as of 05/21/2018 Sig: ALCOHOL SWABS Use as directed up to 5 times* BLOOD SUGAR DIAGNOSTIC STRIPS Use as directed 4 times daily. COMPOUNDED PRESCRIPTION 1 Each as needed. Sharps Cont* COMPOUNDED PRESCRIPTION One Touch meter kit. ENTERIC CONTRAST (RADIOLOGY P* For CT ABD/PEL W IVCON Routin* ERGOCALCIFEROL (VITAMIN D2) 5* Take 1 capsule by mouth once * FAMOTIDINE 20 MG TABLET Take 1 tablet by mouth daily * INSULIN GLARGINE (U-100) 100 * Inject 40 Units subcutaneousl* PEN NEEDLE, DIABETIC 31 GAUGE* One daily with insulin IV CONTRAST (RADIOLOGY PROCED* CT ABD/PEL -Inject, intraveno* LANCETS Use as instructed LANCETS Test blood sugar(s) 5 times * LIRAGLUTIDE 0.6 MG/0.1 ML (18* Inject 1.8 mg subcutaneously * MELOXICAM 15 MG TABLET Take 1 tablet by mouth daily * METFORMIN ER 500 MG TABLET,EX* TAKE TWO TABLETS BY MOUTH WIT* ONDANSETRON HCL 8 MG TABLET Take 1 tablet by mouth every * EMPTY CONTAINER 1 Container as needed (to dis* EMPTY CONTAINER 1 Can twice daily. PANTOPRAZOLE 40 MG TABLET,DEL* Take 1 tablet by mouth once d* PRAVASTATIN 20 MG TABLET Take 1 tablet by mouth once d* TOPIRAMATE 25 MG SPRINKLE CAP* Take 1 capsule by mouth daily* Problem List As Of Date 05/21/2018 Noted Resolved Type 2 diabetes mellitus (HCC) [E11.9] INVALID FOR* More... More... More... Obesity, unspecified [E66.9] INVALID FOR* More... History of flank pain [Z87.898] INVALID FOR*06/21/2014 More... More... More... History of depression [Z86.59] INVALID FOR* More... More... More... More... More... More... More... Depression [F32.9] INVALID FOR* Pain in right hip [M25.551] INVALID FOR* More... Chronic pain of right hip [M25.551, G89.29] INVALID FOR* More... Encounter Status:Closed by JEANNETTE BILL on 05/21/18 PROGRESS Observed: 05/20/2018 Status: COMPLETED Source: [place] 1:[address] [facility] REPOSIT[facility] HNO ID: [id number] Author: Jeannette Bill Service: (none) Author Type: Registered Nurse Type: Progress Notes Filed: 05/20/2018 2:05 PM Note Text: COFFEE MACHINE TECHNICIAN EMERGENCY DEPARTMENT FOLLOW UP INITIAL CONTACT Provider Action/FYI: Pt seen in ER 05/13 and continues to have N/V with eating/drinking intermittently. Will check to see if weight decreased at appt. Initial contact with patient post discharge, spoke to Za. Patient identified by name and date : YES SUMMARY: -Patient discharged from [facility] ED on 05/13/18. -Follow up appointment on 05/21 with AYESHA Maddox. -Medication review done. -Presented with: N/V/D CONCERNS: Says she continues to have pain LUQ abd. NEW MEDICATIONS: Zofran MEDS HELD/DISCONTINUED: None BRIEF ED COURSE: 28 yo F w/C/O N/V with LUQ pain presented to [facility] 05/13 at 915 am. 03/12 with no relief, sharp. She states she has vomited 4 times on this day. She was given 1 liter fluids, Zofran and MS IV with relief and no further vomiting in ER. Labs normal. Previous CT done 01/06 with similar complaint showed only heterogenous liver, S/P alex, tiny 1-2 mm calculi in L kidney. No hydronephrosis. Jeannette Bill RN Ambulatory Postpartum Rn Internal Medicine [facility] CNPTOUTREACH Observed: 05/20/2018 Status: COMPLETED Source: [place] 12:[address] [facility] REPOSITORY Patient Outreach (INTMWS) MIRZA DAIGLE ([id number]) 1990 F [facility] Date Time Provider Department 05/20/18 JEANNETTE BUSBY During your visit today, we recorded the following information about you: Jeannette Olmstead RN 05/20/2018 2:05 PM Signed COFFEE MACHINE TECHNICIAN EMERGENCY DEPARTMENT FOLLOW UP INITIAL CONTACT Provider Action/FYI: Pt seen in ER 05/13 and continues to have N/V with eating/drinking intermittently. Will check to see if weight decreased at appt. Initial contact with patient post discharge, spoke to Za. Patient identified by name and date : YES SUMMARY: -Patient discharged from [facility] ED on 05/13/18. -Follow up appointment on 05/21 with AYESHA Maddox. -Medication review done. -Presented with: N/V/D CONCERNS: Says she continues to have pain LUQ abd. NEW MEDICATIONS: Zofran MEDS HELD/DISCONTINUED: None BRIEF ED COURSE: 28 yo F w/C/O N/V with LUQ pain presented to [facility] 05/13 at 915 am. 03/12 with no relief, sharp. She states she has vomited 4 times on this day. She was given 1 liter fluids, Zofran and MS IV with relief and no further vomiting in ER. Labs normal. Previous CT done 01/06 with similar complaint showed only heterogenous liver, S/P alex, tiny 1-2 mm calculi in L kidney. No hydronephrosis. Jeannette Bill RN Ambulatory Postpartum Rn Internal Medicine [facility] Tara Roman APRN.CNP 05/21/2018 11:13 AM Signed Seen at office visit today. Tara Roman APRN.EDUCATIONAL TECHNOLOGY SPECIALIST Allergies As of Date: 05/20/2018 Noted Allergy Reaction ASPIRIN 09/18/2005 4 - Hives 8 - GI Upset paper tape [Other] 06/26/2005 2 - Rash 7 - Swelling 9 - Itching Comments: Area gets very red also PENICILLINS 05/11/2013 4 - Hives TRAMADOL 04/14/2018 14 - Other: See Comments Comments: Tachycardia Date Reviewed: 04/26/2018 Reviewed by: Mónica Be LPN - Fully Assessed Reason for Visit: Postpartum Rn Chronic Care [4941] Prescriptions as of 05/20/2018 Sig: ALCOHOL SWABS Use as directed up to 5 times* BLOOD SUGAR DIAGNOSTIC STRIPS Use as directed 4 times daily. COMPOUNDED PRESCRIPTION 1 Each as needed. Sharps Cont* COMPOUNDED PRESCRIPTION One Touch meter kit. ERGOCALCIFEROL (VITAMIN D2) 5* Take 1 capsule by mouth once * FAMOTIDINE 20 MG TABLET Take 1 tablet by mouth daily * INSULIN GLARGINE (U-100) 100 * Inject 40 Units subcutaneousl* PEN NEEDLE, DIABETIC 31 GAUGE* One daily with insulin LANCETS Use as instructed LANCETS Test blood sugar(s) 5 times * LIRAGLUTIDE 0.6 MG/0.1 ML (18* Inject 1.8 mg subcutaneously * MELOXICAM 15 MG TABLET Take 1 tablet by mouth daily * METFORMIN ER 500 MG TABLET,EX* TAKE TWO TABLETS BY MOUTH WIT* EMPTY CONTAINER 1 Container as needed (to dis* EMPTY CONTAINER 1 Can twice daily. PANTOPRAZOLE 40 MG TABLET,DEL* Take 1 tablet by mouth once d* PRAVASTATIN 20 MG TABLET Take 1 tablet by mouth once d* TOPIRAMATE 25 MG SPRINKLE CAP* Take 1 capsule by mouth daily* Problem List As Of Date 05/20/2018 Noted Resolved Type 2 diabetes mellitus (HCC) [E11.9] INVALID FOR* More... More... More... Obesity, unspecified [E66.9] INVALID FOR* More... History of flank pain [Z87.898] INVALID FOR*06/21/2014 More... More... More... History of depression [Z86.59] INVALID FOR* More... More... More... More... More... More... More... Depression [F32.9] INVALID FOR* Pain in right hip [M25.551] INVALID FOR* More... Chronic pain of right hip [M25.551, G89.29] INVALID FOR* More... Encounter Status:Closed by JEANNETTE BILL on 05/20/18 EMERGENCY DEPARTMENT Observed: 05/15/2018 Status: F Source: [place] SUMMARY 1:05 AM [facility] Medical Records Department [address] [place] [id number] Emergency Department Summary 05/13/18 0918 MR#: [id number] Acct: [id number] Name: MIRZA DAIGLE Rep #: [id number] : 1990 28 From: Rickey Gu MD PCP: Sunny Wells MD Status: DEP ER - ER Visit Summary Date of Service: 05/13/18 Chief Complaint: Abdominal pain and vomiting History of Present Illness: The patient is a [address] Carrizales. She reports that she has abdominal pain began 2 days ago. Is gradually gotten worse. It is a diffuse sharp pain that is 9 out of 10 in severity currently and 10 out of 10 at worst. Is worsened by eating or drinking anything. Is relieved by nothing. She reports she has been nauseated and vomited multiple times. States she vomited 4 times today. No blood in her emesis. No diarrhea. Her last bowel movement was yesterday. No melena or hematochezia. No dysuria or frequency. Her last menstrual period was last week. No vaginal bleeding or discharge. Patient denies sick contacts. Has not been camping out of the country. No possible bad food exposure. Does not drink well water. No recent antibiotic use. Physical Examination: Vitals: Stable. Afebrile. General: Well-nourished and well-developed. Head: Normocephalic atraumatic. Neck: Supple, no lymphadenopathy. No JVD. Nontender. Cardiovascular: Regular rate and rhythm. No murmurs. Respiratory: No respiratory distress. Clear to auscultation bilaterally. Abdominal: Soft, mild diffuse tenderness palpation that is worst in the left upper and left lower quadrants, nondistended, normal bowel sounds. No guarding, rebound, or peritoneal signs. Back: Nontender. Extremities: Nontender, no edema. Skin: Normal color, no rash. Neurologic: Alert and oriented 3. Cranial nerves II through XII are intact. Normal strength and sensation. Psych: Normal affect. Test Results: CBC is normal. Chem-7 is remarkable for chloride of 108. UA shows occult blood and ketones. test is negative. Emergency Department Course and Treatment: Patient had an IV placed. She was given Zofran and morphine IV. She was given a liter of normal saline. She is resting comfortably. She has had no further vomiting while here. Treatment Plan: Patient will be discharged with Zofran. Instructed to follow-up her primary care physician 1-2 days if not improving. Return to the emergency department for any worsening symptoms. Disposition: To home in improved and stable condition. Impression: 1. Vomiting. This note was generated with [employer] dictation software. It may contain incorrect words, spelling, and punctuation that were not noted in review of the chart prior to signing ED Disposition - Plan for ED Patient: Chief Complaint: Nausea/Vomiting Instructions: ED Nausea Vomiting Prescriptions: Ondansetron [Zofran Odt] 4 mg PO Q8H PRN PRN #10 tablet PRN Reason: Nausea Referrals: Sunny Wells MD [Primary Care Provider] - 1-2 Days if not improving What to do if you have Problems For any increased pain, shortness of breath, bleeding, nausea or vomiting, chest pain, or any unexpected problems, contact your Primary Care Provider. Call [facility] ([phone]) or report to the closest Emergency Room. Call 911 if necessary. 05/15/18 0105 <Electronically signed by Rickey Gu MD> Date Rickey Gu MD Cosigner Signature (If Indicated): Date CC: Sunny Wells MD URINALYSIS, COMPLETE Collected: 05/13/2018 Status: F Source: [place] 10:15 [place] [facility] Order Comment: Order Date: 05/13/18 How was Urine Obtained? CLEAN CATCH TYPE CODE TESTS RESULT OUT OF RANGE REFERENCE UNITS LAB L400.3000 Yellow COLOR Normal Yellow LAB L400.3050 Clear Normal CLARITY Sl. Cloudy LAB L400.3200 Normal mg/dl Normal GLUCOSE, UR Normal LAB L400.3300 Negative mg/dL Normal BILIRUBIN URINE Negative LAB L400.3400 Negative mg/dl High 5 KETONE UR LAB L400.3465 1.002-1.030 Normal SP.GR. DIPSTX 1.025 LAB L400.3550 5.0 - 8.0 pH UR Normal 6.0 LAB L400.3600 Negative mg/dl PROT Normal DIPSTX Negative LAB L400.3700 Normal mg/dl Normal UROBILI Normal LAB L400.3750 Negative Normal NITRITE UR Negative LAB L400.3780 Negative /ul High 25 OCCULT BLOOD-UR LAB L400.3800 Negative /ul LEUK Normal ESTERASE Negative LAB L400.4050 0-5 /hpf WBC 0 Normal SEEN LAB L400.4100 0-5 /hpf Normal RBC-UA 0-5 SEEN LAB L400.4150 5-10 /hpf SQUAM Normal EPI 0-5 SEEN LAB L400.4300 None Seen /hpf 0 Normal BACTERIA SEEN LAB L400.4350 <or=2+ /hpf 1+ Normal MUCUS, URINE LAB L400.4700 <or=2+ /hpf CA OX 1+ Normal CRYSTAL Performed By: #### L400.0001 #### [facility] [address] [place], [address] CBC W/DIFF, AUTOMATED Collected: 05/13/2018 Status: F Source: [place] 9:40 AM [facility] TYPE CODE TESTS RESULT OUT OF RANGE REFERENCE UNITS LAB L100.1000 4.4-11.0 K/mm3 Normal WBC 8.5 LAB L100.1200 4.2-5.4 M/mm3 Normal RBC 4.28 LAB L100.1300 12.0-15.0 g/dl Normal HGB 13.9 LAB L100.1400 37-47 % Normal HCT 38.9 LAB L100.1500 81-99 fL Normal MCV 90.9 LAB L100.1600 27.0-32.0 pg High MCH 32.5 LAB L100.1700 32-36 g/gl Normal MCHC 35.7 LAB L100.1810 11.6-14.6 % Normal RDW CV 12.9 LAB L100.1820 35.1-43.9 fl Normal RDW SD 42.5 LAB L100.1900 150-450 K/mm3 Normal PLT 340 LAB L100.2000 6.2-12.0 fl Normal MPV 9.2 LAB L100.2100 47-70 % Normal NEUT% 58.1 LAB L100.2200 19-41 % Normal LY% 32.4 LAB L100.2300 0-10 % Normal MONO% 7.0 LAB L100.2400 0-5 % Normal EO% 1.9 LAB L100.2500 0-1 % Normal BASO% 0.4 LAB L100.2550 0.0-0.9 % Normal IM GRAN % 0.200 Result Comment: IG% - Immature Granulocytes (promyelocytes, myelocytes and metamyelocytes) > 1% indicates that a LEFT SHIFT is Present. LAB L100.2620 2.0-7.7 X10 3/uL Normal Absolute Neut 5.0 LAB L100.2720 0.83-4.51 X10 3/ul Normal Absolute Lymph 2.77 Performed By: #### L100.0100 #### [facility] [address] [place], [address] BASIC METABOLIC Collected: 05/13/2018 Status: F Source: [place] PROFILE (BMP) 9:40 AM [facility] TYPE CODE TESTS RESULT OUT OF RANGE REFERENCE UNITS LAB L501.0100 74-106 mg/dL Normal GLU 102 Result Comment: Fasting Glucose result from 100 to 125 mg/dL suggests IMPAIRED HOMEOSTASIS per A.D.A. criteria. Please note revised GLUCOSE reference range effective 2017. LAB L501.1000 7-18 mg/dL Normal BUN 10 LAB L501.1100 0.55-1.02 mg/dL Normal CREAT,SERUM 0.61 Result Comment: The validity of the calculated GFR AND GFRAA in patients over 70 years has not been determined. Clinical correlation is essential. LAB L501.1110 >60 mL/min Normal EST GFR 127 Result Comment: Non- GFR Calc LAB L501.1115 >60 mL/min Normal EST GFR - AA 153 Result Comment: GFR Calc LAB L501.1255 ml/min Normal Estimated CRCL 135.91 LAB L501.1300 10-20 RATIO BUN/CRE Normal 16.5 LAB L501.2200 8.5-10 mg/dL .1 CA Normal 8.6 LAB L501.5300 136-14 mmol/L 5 NA Normal 142 LAB L501.5600 3.5-5. mmol/L 1 K Normal 3.6 LAB L501.5900 98-107 mmol/L High CL 108 LAB L501.6100 21.0-3 mmol/L 2.0 CO2 Normal 22.0 LAB L501.6200 5-15 GAP Normal 12 Performed By: #### L500.2500 #### [facility] [address] [place], [address] ,SERUM,HCG QUALI. Collected: Status: F Source: [place] 05/13/2018 9:40 AM [facility] TYPE CODE TESTS RESULT OUT OF REFERENCE UNITS RANGE LAB L700.6700 =>Qualitative mIU/mL Normal HCG Qual < 1 triggr LAB L700.7000 0-9 Nonpreg Negative Normal HCGSQUAL NEGATIVE Performed By: #### L700.6800 #### [facility] [address] [place], [address] PROGRESS Observed: 04/28/2018 Status: COMPLETED Source: [place] 2:[address] [facility] REPOSIT[facility] HNO ID: [id number] Author: Jeannette Bill Service: (none) Author Type: Registered Nurse Type: Progress Notes Filed: 05/01/2018 8:35 AM Note Text: PRIMARY CARE COORDINATION FOLLOW-UP NOTE Provider Action/FYI: Pt will contact [facility] Mobic as noted Patient identified by name and date of . YES Spoke to patient Summary: Obtained info for [facility] but pt needs to view on line or go for a seminar. I sent info for links to her along with her appt F/Us. Sent note to Maddy to send order to [facility] for them to contact pt for Water Therapy. Patient phones requesting refills as follows: Pending Prescriptions Disp Refills MELOXICAM 15 MG TABLET 30 tablet 2 Sig: Take 1 tablet by mouth daily with food. ANASTASIA: No Please review and advise. Concerns: Pt has a great deal of weight to lose before Ortho will consider surgery as well as getting BSs under control. Leather Production Artisan plan for next outreach: Will follow up in a month. Signature Jeannette Bill cardiopulmonary technologist Postpartum Rn [facility] April 28, 2018 JUNAID Observed: 04/28/2018 Status: COMPLETED Source: [place] 12:[address] [facility] REPOSIT[facility] Patient Outreach (INTMWS) MIRZA DAIGLE ([id number]) 1990 F Date Time Provider Department 04/28/18 JEANNETTE BUSBY During your visit today, we recorded the following information about you: Jeannette Olmstead RN 05/01/2018 8:35 AM Signed PRIMARY CARE COORDINATION FOLLOW-UP NOTE Provider Action/FYI: Pt will contact [facility] Mobic as noted Patient identified by name and date of . YES Spoke to patient Summary: Obtained info for [facility] but pt needs to view on line or go for a seminar. I sent info for links to her along with her appt F/Us. Sent note to Maddy to send order to [facility] for them to contact pt for Water Therapy. Patient phones requesting refills as follows: Pending Prescriptions Disp Refills MELOXICAM 15 MG TABLET 30 tablet 2 Sig: Take 1 tablet by mouth daily with food. ANASTASIA: No Please review and advise. Concerns: Pt has a great deal of weight to lose before Ortho will consider surgery as well as getting BSs under control. Leather Production Artisan plan for next outreach: Will follow up in a month. Signature Jeannette Bill RN Ambulatory Postpartum Rn Internal Medicine [facility] April 28, 2018 Allergies As of Date: 04/28/2018 Noted Allergy Reaction ASPIRIN 09/18/2005 4 - Hives 8 - GI Upset paper tape [Other] 06/26/2005 2 - Rash 7 - Swelling 9 - Itching Comments: Area gets very red also PENICILLINS 05/11/2013 4 - Hives TRAMADOL 04/14/2018 14 - Other: See Comments Comments: Tachycardia Date Reviewed: 04/26/2018 Reviewed by: Mónica Be LPN - Fully Assessed Reason for Visit: Postpartum Rn Chronic Care [8905] Primary Visit Diagnosis:Pain of right hip joint [M25.551] Order(s):meloxicam (MOBIC) 15 mg tabletTake 1 tablet by mouth daily with food.Disp: 30 tabletRfl: 2 Prescriptions as of 04/28/2018 Sig: MELOXICAM 15 MG TABLET Take 1 tablet by mouth daily * PEN NEEDLE, DIABETIC 31 GAUGE* One daily with insulin LIRAGLUTIDE 0.6 MG/0.1 ML (18* Inject 1.8 mg subcutaneously * PRAVASTATIN 20 MG TABLET Take 1 tablet by mouth once d* TOPIRAMATE 25 MG SPRINKLE CAP* Take 1 capsule by mouth daily* ERGOCALCIFEROL (VITAMIN D2) 5* Take 1 capsule by mouth once * PANTOPRAZOLE 40 MG TABLET,DEL* Take 1 tablet by mouth once d* BLOOD SUGAR DIAGNOSTIC STRIPS Use as directed 4 times daily. METFORMIN ER 500 MG TABLET,EX* TAKE TWO TABLETS BY MOUTH WIT* INSULIN GLARGINE (U-100) 100 * Inject 40 Units subcutaneousl* COMPOUNDED PRESCRIPTION One Touch meter kit. LANCETS Test blood sugar(s) 5 times * FAMOTIDINE 20 MG TABLET Take 1 tablet by mouth daily * ALCOHOL SWABS Use as directed up to 5 times* EMPTY CONTAINER 1 Can twice daily. COMPOUNDED PRESCRIPTION 1 Each as needed. Sharps Cont* EMPTY CONTAINER 1 Container as needed (to dis* LANCETS Use as instructed Problem List As Of Date 04/28/2018 Noted Resolved Type 2 diabetes mellitus (HCC) [E11.9] INVALID FOR* More... More... More... Obesity, unspecified [E66.9] INVALID FOR* More... History of flank pain [Z87.898] INVALID FOR*06/21/2014 More... More... More... History of depression [Z86.59] INVALID FOR* More... More... More... More... More... More... More... Depression [F32.9] INVALID FOR* Pain in right hip [M25.551] INVALID FOR* More... Chronic pain of right hip [M25.551, G89.29] INVALID FOR* More... Prescriptions ordered this encounter Disp Refills Start End MELOXICAM 15 MG TABLET 30 t* 2 04/30/2018 Route: ORAL Sig: Take 1 tablet by mouth daily with food. Medications Discontinued During This Encounter meloxicam (MOBIC) 15 mg tablet 30 t* 1 11/11/2017 04/30/2018 Route: ORAL Sig: Take 1 tablet by mouth once daily. X 10 days, then daily as needed with food. Disc: Reason for discontinue is not on file. Follow-up and Disposition History Recorded Encounter Status:Closed by JEANNETTE BILL on 05/01/18 PROGRESS Observed: 04/26/2018 Status: COMPLETED Source: [place] 12:08 PM [facility] RE[facility] HNO ID: [id number] Author: Jeannette Bill Service: (none) Author Type: Registered Nurse Type: Progress Notes Filed: 04/26/2018 12:31 PM Note Text: PRIMARY CARE COORDINATION IN OFFICE VISIT WITH PCP Patient has been identified by name and date of . PCP Assessment/Plan: Reviewed PCP plan with patient using [facility] Pt to start PT at [facility] for hip strengthening and weight management. New meds: Topomax to poss weight loss assist, statin, Vit D. PCC Plan of Care: Patient concerns: R hip pain, plans to go to [place] in 3 yrs and they are actively saving for it now. She wants to weight less than 200# to fit in the seats, etc. Patient goals: Watching what she eatsetc. PCC Interventions: Will schedule PT, Bariatric surgery. Next Office Visit: 06/30/17 Plan For Next Call: Next week to schedule PT and consult for Bariat[facility] Center Jeannette Bill cardiopulmonary technologist Postpartum Rn Internal Medicine [facility] April 26, 2018 PROGRESS Observed: 04/26/2018 Status: COMPLETED Source: [place] 10:[address] [facility] REPOSITORY HNO ID: [id number] Author: Sunny Wells Service: (none) Author Type: Physician Type: Progress Notes Filed: 04/26/2018 1:58 PM Note Text: Reason for Visit Patient presents with: Kassy Mirza Daigle is a 28 year old female who presents here today for Above Complaints.. Health Maintenance HPV VACCINE(3 - Female 3-dose series) PAP EVERY 3 YEARS (21-30 YEAR OLDS) DIABETIC FOOT EXAM HPI Patient is here with Awa who explained to her about her diet Since I last saw the patient she lost a , had been to the photographer model, and was reviewed to see if she would qualify for research with functional medicine for DIABETES MELLITUS patients who are on insulin, she did no qualify. We have tests to be reviewed that were done by the research, we reviewed her creactive proteins, which is very high and she would benefit from a statin. Her vit d is low she needs replaced. Hba1c is better at 8.0, Aaw discussed diet in detail, about her eating patterns, shopping and cooking her own food. The visit is a little challenge as she talks a lot Her health goals are to loose 80 pounds- motivated as she wants to go to [employer] in 3 years and wants to enjoy those rides etc. She is going to watch her diet. She has A hip problem - genetic anomaly From dysplasia ,and cannot do her replacement till she gets her weight down and hba1c better. The last week her fasting was 250. Today morning it was 150, after food, patient does not check her sugars. Patient notes she has migraines on and off, she is not on medication for it, but would like to take a preventive medication. Patient seems like a great candidate for gastric bypass. No problem-specific Assessment AND Plan notes found for this encounter. PAST MEDICAL HISTORY Diagnosis Date - Anemia WITH 2ND - Asthma since 14 years old, inhaler PRN - Complex ovarian cyst - Needs follow up imaging 06/09/2013 06/09/2013 An ultrasound was done 06/04/2013 that revealed a 6w5d fetus with DELFINA of 01/24/14. There is fluid seen adjacent to the gestastional sac possible subchorionic hemorrhage. the left ovary is within normal limits but the right ovary contains a 3.8 x 3 x 3.3 cm moderately complex cyst. TKRN 01/15/2014 - Confirmed 9 x 7 x 2.5 cm multi-loculated cyst at the time of . Needs outpatient follow up via TVUS. - Congenital hip deformity right - Diabetes, gestational insulin controlled - Family history of defects 06/09/2013 06/09/2013Patient's mother born with spina bifida. Patient's brother born with a hole in his heart. Patient has another brother that was born with Down syndrome. Patient and her brother born with a congenital hip deformity. Patient has had multiple corrective surgeries for the hip deformity.TKRN - Family history of Down syndrome 06/21/2014 Brother with DS - Family history of spina bifida 06/21/2014 Mom with Spina bifida in wheelchair - Gall stones 2007 Gall bladder removed - History of asthma 06/09/2013 06/09/2013Patient has a history of asthma. She uses an albuterol inhaler when necessary. TKRN - History of 06/09/2013 06/09/2013 Pt had 3 previous C sections. - History of kidney stones - Nausea/vomiting in 06/09/2013 06/09/2013She states she has nausea . Advised patient to call/come in if she has persistent vomiting or if her blood sugars were less than 70. TKRN - Ovarian cyst during 07/21/2014 07/21/14: see NT ultrasound: Right ovarian cyst 6cm - Pain in joint, pelvic region and thigh 01/10/2006 - Pancreatitis - Patient requested diagnostic testing 06/09/2013 06/09/2013 Patient desires early screening in with sequential testing. TKRN - depression - Prior macrosomia, antepartum 06/21/2014 - Short interval between pregnancies complicating , antepartum 06/09/2013 06/09/2013Nikki delivered her previous child August 14, 2012.TKRN - Type 2 diabetes mellitus (HCC) 05/22/2013 - Type 2 diabetes mellitus complicating , antepartum 05/28/2013 06/09/2013Nikki has a history of diabetes diagnosed 4 years ago. She was unaware that she was until she went into labor with her first . With her second she started insulin during the second trimester. She was referred to Dr. Tejada at [facility] for poorly controlled diabetes on metformin alone. She has since started insulin and has an appointment today with Dr. Guevara for followup. She has been keeping track of her blood sugars and presents with a journal today and these blood sugars are copy off and given to Dr. Guevara for his review. I have discussed with the patient the importance of good control of her blood sugars during and keeping a blood sugar log for review by the Doctor. She is reminded that she is to send her blood sugars in weekly to Dr. Guevara and she is to call sooner than a week if she has persistently high, greater the 180, or low blood sugars, less than 70. She is provided with a blood sugar log today. She has not had a diabetic foot or eye exam rece PAST SURGICAL HISTORY Procedure Laterality Date - DELIVERY ONLY , low transverse x3 - DELIVERY ONLY 01/19/15 , low transverse - IANDD ABSC; SMPL OR SGL 05/2013 cyst on left upper chest - LAPAROSCOPIC CHOLEYCYSTECTOMY Cholecystectomy, lap - PAST SURGICAL HISTORY OF tubes in ears per Dr Crockett at [facility] - PAST SURGICAL HISTORY OF Tonsils and Adenoids removed per Dr Crockett at [facility] - PAST SURGICAL HISTORY OF [address] Marroquin at [facility] and one by Dr. Camacho in [place] - REMOVAL OF OVARY/TUBE(S) 01/19/15 Salpingo-oophorectomy, right ovarian mass FAMILY HISTORY Problem Relation Age of Onset - Diabetes Mother - Hypertension Mother - other (spina bifida) Mother - Heart Father - Hypertension Father - Cancer Maternal Grandmother - Alcohol/Drug Maternal Grandmother - Heart Paternal Grandmother - Aneurysm Paternal Grandmother - Stroke Brother - other (Down Syndrome) Brother - other (autism) Brother step brother - seizures and cerebral palsy also - other (Open family hx of Neural Tube Defect) Brother Social History Substance Use Topics - Smoking status: Never Smoker - Smokeless tobacco: Never Used Comment: mom's fiance smokes outside - Alcohol use No Past medical history, appointments, medications, allergies reviewed. Pertinent Lab/Diagnostic Studies are reviewed and discussed today Current Outpatient Prescriptions: - meloxicam (MOBIC) 15 mg tablet - pantoprazole DR (PROTONIX) 40 mg tablet - blood sugar diagnostic (FREESTYLE LITE STRIPS) test strip - metFORMIN ER (GLUCOPHAGE XR) 500 mg 24 hr tablet - liraglutide (VICTOZA 2-WILLIAM) 0.6 mg/0.1 mL (18 mg/3 mL) pnij - insulin glargine (BASAGLAR KWIKPEN U-100 INSULIN) 100 unit/mL (3 mL) inpn - COMPOUNDED PRESCRIPTION - Lancets (ONETOUCH ULTRASOFT LANCETS) lancets - famotidine (PEPCID) 20 mg tablet - Alcohol Swabs padm - Oral Medication Containers (SHARPS CONTAINER) misc - insulin needles, DISPOSABLE, (PEN NEEDLE) 31 gauge x 5/16 ndle - COMPOUNDED PRESCRIPTION - Oral Medication Containers (BD SHARPS PRIVATE BANKER) misc - Lancets (ONE TOUCH SURESOFT LANCING DEV) lancets Review of Systems CONSTITUTIONAL: No fevers, chills night sweats, unintended weight loss CARDIOVASCULAR: No chest pain, dyspnea, palpitations, orthopnea, PND, ankle edema. PULM: No dyspnea, unexplained cough. GI: No dysphagia/odynophagia, problematic reflux, constipation, diarrhea, changes in stool habits, hematochezia, melena. : No new urinary complaints, including dysuria, gross hematuria or pyuria. NEURO: No new balance problems, peripheral weakness/paresthesias or numbness of concern. Physical Exam BP 118/74 (BP Site: Left Arm, BP Position: Sitting, BP Cuff Size: Large Adult) Pulse 64 Temp 36.4 ?C (97.6 ?F) (Temporal Artery) Resp 20 Wt 129.7 kg (286 lb) BMI 45.53 kg/m? General appearance: Well appearing, alert, in no acute distress, well nourished. Skin: Skin color, texture, turgor normal, no suspicious rashes or lesions Head: Normocephalic, no masses, lesions, tenderness or abnormalities Eyes: Anicteric sclera. Pupils are equally round and reactive to light. Extraocular movements are intact. Lungs: Lungs clear to auscultation. No wheezing, rhonchi, rales Heart: RRR without murmur, gallop, or rubs. Extremities: No deformities, edema, skin discoloration, clubbing or cyanosis. Good capillary refill. ASSESSMENT/PLAN: 1. Hip dysplasia - ICD9: 755.63, ICD10: Q65.89 (primary diagnosis) The patient needs to have surgery, needs to reduce weight and get sugars better controlled to have better surgical outcomes. She is unable to exercise because of hip issues. Discussed diet, medication and bariatric surgery. 2. Type 2 diabetes mellitus without complication, without long-term current use of insulin ([facility]) - ICD9: 250.00, ICD10: E11.9 Controlled. - Continue current medications - CONSULT TO PHYSICAL THERAPY - LIRAGLUTIDE 0.6 MG/0.1 ML (18 MG/3 ML) SUBCUTANEOUS PEN INJECTOR 3. Class 3 severe obesity due to excess calories with serious comorbidity and body mass index (BMI) of 45.0 to 49.9 in adult ([facility]) - ICD9: 278.01, V85.42, ICD10: E66.01, Z68.42 - CONSULT [facility] 4. Other migraine without status migrainosus, not intractable - ICD9: 346.80, ICD10: G43.809 Started patient on topamax, might help with her weight and appetite too. 5. Vitamin D deficiency - ICD9: 268.9, ICD10: E55.9 Refilled the medication - ERGOCALCIFEROL (VITAMIN D2) 50,000 UNIT CAPSULE Spent more than 40 mins with the patient along with the Awa discussing different medication. SUNNY WELLS MD CNOV Observed: 04/26/2018 Status: COMPLETED Source: [place] 10:[address] [facility] REPOSITORY Office Visit (INTMWS) MIRZA DAIGLE ([id number]) 1990 F Date Time Provider Department 04/26/18 10:20 AM SUNNY WELLS INTMWS During your visit today, we recorded the following information about you: Temperature Pulse Respiration Blood pressure 97.6 degrees 64/minute 20/minute 118/74 Weight 129.7 kg SUNNY WELLS MD 04/26/2018 1:58 PM Signed Reason for Visit Patient presents with: Recheck Jagmohit Selam Pilo is a 28 year old female who presents here today for Above Complaints.. Health Maintenance HPV VACCINE(3 - Female 3-dose series) PAP EVERY 3 YEARS (21-30 YEAR OLDS) DIABETIC FOOT EXAM HPI Patient is here with Awa who explained to her about her diet Since I last saw the patient she lost a , had been to the photographer model, and was reviewed to see if she would qualify for research with functional medicine for DIABETES MELLITUS patients who are on insulin, she did no qualify. We have tests to be reviewed that were done by the research, we reviewed her creactive proteins, which is very high and she would benefit from a statin. Her vit d is low she needs replaced. Hba1c is better at 8.0, Awa discussed diet in detail, about her eating patterns, shopping and cooking her own food. The visit is a little challenge as she talks a lot Her health goals are to loose 80 pounds- motivated as she wants to go to [employer] in 3 years and wants to enjoy those rides etc. She is going to watch her diet. She has A hip problem - genetic anomaly From dysplasia ,and cannot do her replacement till she gets her weight down and hba1c better. The last week her fasting was 250. Today morning it was 150, after food, patient does not check her sugars. Patient notes she has migraines on and off, she is not on medication for it, but would like to take a preventive medication. Patient seems like a great candidate for gastric bypass. No problem-specific Assessment AND Plan notes found for this encounter. PAST MEDICAL HISTORY Diagnosis Date - Anemia WITH 2ND - Asthma since 14 years old, inhaler PRN - Complex ovarian cyst - Needs follow up imaging 06/09/2013 06/09/2013 An ultrasound was done 06/04/2013 that revealed a 6w5d fetus with DELFINA of 01/24/14. There is fluid seen adjacent to the gestastional sac possible subchorionic hemorrhage. the left ovary is within normal limits but the right ovary contains a 3.8 x 3 x 3.3 cm moderately complex cyst. TKRN 01/15/2014 - Confirmed 9 x 7 x 2.5 cm multi-loculated cyst at the time of . Needs outpatient follow up via TVUS. - Congenital hip deformity right - Diabetes, gestational insulin controlled - Family history of defects 06/09/2013 06/09/2013Patient's mother born with spina bifida. Patient's brother born with a hole in his heart. Patient has another brother that was born with Down syndrome. Patient and her brother born with a congenital hip deformity. Patient has had multiple corrective surgeries for the hip deformity.TKRN - Family history of Down syndrome 06/21/2014 Brother with DS - Family history of spina bifida 06/21/2014 Mom with Spina bifida in wheelchair - Gall stones 2007 Gall bladder removed - History of asthma 06/09/2013 06/09/2013Patient has a history of asthma. She uses an albuterol inhaler when necessary. TKRN - History of 06/09/2013 06/09/2013 Pt had 3 previous C sections. - History of kidney stones - Nausea/vomiting in 06/09/2013 06/09/2013She states she has nausea . Advised patient to call/come in if she has persistent vomiting or if her blood sugars were less than 70. TKRN - Ovarian cyst during 07/21/2014 07/21/14: see NT ultrasound: Right ovarian cyst 6cm - Pain in joint, pelvic region and thigh 01/10/2006 - Pancreatitis - Patient requested diagnostic testing 06/09/2013 06/09/2013 Patient desires early screening in with sequential testing. TKRN - depression - Prior macrosomia, antepartum 06/21/2014 - Short interval between pregnancies complicating , antepartum 06/09/2013 06/09/2013Nikki delivered her previous child August 14, 2012.TKRN - Type 2 diabetes mellitus (HCC) 05/22/2013 - Type 2 diabetes mellitus complicating , antepartum 05/28/2013 06/09/2013Nikki has a history of diabetes diagnosed 4 years ago. She was unaware that she was until she went into labor with her first . With her second she started insulin during the second trimester. She was referred to Dr. Tejada at [facility] for poorly controlled diabetes on metformin alone. She has since started insulin and has an appointment today with Dr. Guevara for followup. She has been keeping track of her blood sugars and presents with a journal today and these blood sugars are copy off and given to Dr. Guevara for his review. I have discussed with the patient the importance of good control of her blood sugars during and keeping a blood sugar log for review by the Doctor. She is reminded that she is to send her blood sugars in weekly to Dr. Guevara and she is to call sooner than a week if she has persistently high, greater the 180, or low blood sugars, less than 70. She is provided with a blood sugar log today. She has not had a diabetic foot or eye exam rece PAST SURGICAL HISTORY Procedure Laterality Date - DELIVERY ONLY , low transverse x3 - DELIVERY ONLY 01/19/15 , low transverse - IANDD ABSC; SMPL OR SGL 05/2013 cyst on left upper chest - LAPAROSCOPIC CHOLEYCYSTECTOMY Cholecystectomy, lap - PAST SURGICAL HISTORY OF tubes in ears per Dr Crockett at [facility] - PAST SURGICAL HISTORY OF Tonsils and Adenoids removed per Dr Crockett at [facility] - PAST SURGICAL HISTORY OF [address] Marroquin at [facility] and one by Dr. Camacho in [place] - REMOVAL OF OVARY/TUBE(S) 01/19/15 Salpingo-oophorectomy, right ovarian mass FAMILY HISTORY Problem Relation Age of Onset - Diabetes Mother - Hypertension Mother - other (spina bifida) Mother - Heart Father - Hypertension Father - Cancer Maternal Grandmother - Alcohol/Drug Maternal Grandmother - Heart Paternal Grandmother - Aneurysm Paternal Grandmother - Stroke Brother - other (Down Syndrome) Brother - other (autism) Brother step brother - seizures and cerebral palsy also - other (Open family hx of Neural Tube Defect) Brother Social History Substance Use Topics - Smoking status: Never Smoker - Smokeless tobacco: Never Used Comment: mom's fiance smokes outside - Alcohol use No Past medical history, appointments, medications, allergies reviewed. Pertinent Lab/Diagnostic Studies are reviewed and discussed today Current Outpatient Prescriptions: - meloxicam (MOBIC) 15 mg tablet - pantoprazole DR (PROTONIX) 40 mg tablet - blood sugar diagnostic (FREESTYLE LITE STRIPS) test strip - metFORMIN ER (GLUCOPHAGE XR) 500 mg 24 hr tablet - liraglutide (VICTOZA 2-WILLIAM) 0.6 mg/0.1 mL (18 mg/3 mL) pnij - insulin glargine (BASAGLAR KWIKPEN U-100 INSULIN) 100 unit/mL (3 mL) inpn - COMPOUNDED PRESCRIPTION - Lancets (ONETOUCH ULTRASOFT LANCETS) lancets - famotidine (PEPCID) 20 mg tablet - Alcohol Swabs padm - Oral Medication Containers (SHARPS CONTAINER) misc - insulin needles, DISPOSABLE, (PEN NEEDLE) 31 gauge x 5/16 ndle - COMPOUNDED PRESCRIPTION - Oral Medication Containers (BD SHARPS PRIVATE BANKER) misc - Lancets (ONE TOUCH SURESOFT LANCING DEV) lancets Review of Systems CONSTITUTIONAL: No fevers, chills night sweats, unintended weight loss CARDIOVASCULAR: No chest pain, dyspnea, palpitations, orthopnea, PND, ankle edema. PULM: No dyspnea, unexplained cough. GI: No dysphagia/odynophagia, problematic reflux, constipation, diarrhea, changes in stool habits, hematochezia, melena. : No new urinary complaints, including dysuria, gross hematuria or pyuria. NEURO: No new balance problems, peripheral weakness/paresthesias or numbness of concern. Physical Exam BP 118/74 (BP Site: Left Arm, BP Position: Sitting, BP Cuff Size: Large Adult) Pulse 64 Temp 36.4 ?C (97.6 ?F) (Temporal Artery) Resp 20 Wt 129.7 kg (286 lb) BMI 45.53 kg/m? General appearance: Well appearing, alert, in no acute distress, well nourished. Skin: Skin color, texture, turgor normal, no suspicious rashes or lesions Head: Normocephalic, no masses, lesions, tenderness or abnormalities Eyes: Anicteric sclera. Pupils are equally round and reactive to light. Extraocular movements are intact. Lungs: Lungs clear to auscultation. No wheezing, rhonchi, rales Heart: RRR without murmur, gallop, or rubs. Extremities: No deformities, edema, skin discoloration, clubbing or cyanosis. Good capillary refill. ASSESSMENT/PLAN: 1. Hip dysplasia - ICD9: 755.63, ICD10: Q65.89 (primary diagnosis) The patient needs to have surgery, needs to reduce weight and get sugars better controlled to have better surgical outcomes. She is unable to exercise because of hip issues. Discussed diet, medication and bariatric surgery. 2. Type 2 diabetes mellitus without complication, without long-term current use of insulin ([facility]) - ICD9: 250.00, ICD10: E11.9 Controlled. - Continue current medications - CONSULT TO PHYSICAL THERAPY - LIRAGLUTIDE 0.6 MG/0.1 ML (18 MG/3 ML) SUBCUTANEOUS PEN INJECTOR 3. Class 3 severe obesity due to excess calories with serious comorbidity and body mass index (BMI) of 45.0 to 49.9 in adult ([facility]) - ICD9: 278.01, V85.42, ICD10: E66.01, Z68.42 - CON[facility]ULT [facility] 4. Other migraine without status migrainosus, not intractable - ICD9: 346.80, ICD10: G43.809 Started patient on topamax, might help with her weight and appetite too. 5. Vitamin D deficiency - ICD9: 268.9, ICD10: E55.9 Refilled the medication - ERGOCALCIFEROL (VITAMIN D2) 50,000 UNIT CAPSULE Spent more than 40 mins with the patient along with the Awa discussing different medication. SUNNY WELLS MD Referring Provider: SELF [[id number]] Allergies As of Date: 04/26/2018 Noted Allergy Reaction ASPIRIN 09/18/2005 4 - Hives 8 - GI Upset paper tape [Other] 06/26/2005 2 - Rash 7 - Swelling 9 - Itching Comments: Area gets very red also PENICILLINS 05/11/2013 4 - Hives TRAMADOL 04/14/2018 14 - Other: See Comments Comments: Tachycardia Date Reviewed: 04/26/2018 Reviewed by: Mónica Be LPN - Fully Assessed Reason for Visit: Recheck [92] Primary Visit Diagnosis:Hip dysplasia [Q65.89] Other Visit Diagnoses:Type 2 diabetes mellitus without complication, without long-term current use of insulin (HCC) [E11.9] Class 3 severe obesity due to excess calories with serious comorbidity and body mass index (BMI) of 45.0 to 49.9 in adult (HCC) [E66.01, Z68.42] Other migraine without status migrainosus, not intractable [G43.809] Vitamin D deficiency [E55.9] Order(s):insulin needles, DISPOSABLE, (PEN NEEDLE) 31 gauge x 5/16 ndleOne daily with insulinDisp: 100 EachRfl: 6 CONSULT TO PHYSICAL THERAPY [9072] Order #: [id number]: 1 liraglutide (VICTOZA) 0.6 mg/ 0.1 ml subcutaneous pen injectorInject 1.8 mg subcutaneously once daily.Disp: 4 PackageRfl: 1 pravastatin (PRAVACHOL) 20 mg tabletTake 1 tablet by mouth once daily.Disp: 30 tabletRfl: 2 topiramate (TOPAMAX) 25 mg capsuleTake 1 capsule by mouth daily at bedtime.Disp: 30 capsuleRfl: 2 CON[facility]ULT [facility] [[id number]] Order #: [id number]: 1 ergocalciferol, vitamin D2, (DRISDOL) 50,000 unit capsuleTake 1 capsule by mouth once each week.Disp: 12 capsuleRfl: 3 Prescriptions as of 04/26/2018 Sig: PEN NEEDLE, DIABETIC 31 GAUGE* One daily with insulin LIRAGLUTIDE 0.6 MG/0.1 ML (18* Inject 1.8 mg subcutaneously * MELOXICAM 15 MG TABLET Take 1 tablet by mouth once d* PANTOPRAZOLE 40 MG TABLET,DEL* Take 1 tablet by mouth once d* BLOOD SUGAR DIAGNOSTIC STRIPS Use as directed 4 times daily. METFORMIN ER 500 MG TABLET,EX* TAKE TWO TABLETS BY MOUTH WIT* INSULIN GLARGINE (U-100) 100 * Inject 40 Units subcutaneousl* COMPOUNDED PRESCRIPTION One Touch meter kit. LANCETS Test blood sugar(s) 5 times * FAMOTIDINE 20 MG TABLET Take 1 tablet by mouth daily * ALCOHOL SWABS Use as directed up to 5 times* EMPTY CONTAINER 1 Can twice daily. COMPOUNDED PRESCRIPTION 1 Each as needed. Sharps Cont* EMPTY CONTAINER 1 Container as needed (to dis* LANCETS Use as instructed PRAVASTATIN 20 MG TABLET Take 1 tablet by mouth once d* TOPIRAMATE 25 MG SPRINKLE CAP* Take 1 capsule by mouth daily* ERGOCALCIFEROL (VITAMIN D2) 5* Take 1 capsule by mouth once * Problem List As Of Date 04/26/2018 Noted Resolved Type 2 diabetes mellitus (HCC) [E11.9] INVALID FOR* More... More... More... Obesity, unspecified [E66.9] INVALID FOR* More... History of flank pain [Z87.898] INVALID FOR*06/21/2014 More... More... More... History of depression [Z86.59] INVALID FOR* More... More... More... More... More... More... More... Depression [F32.9] INVALID FOR* Pain in right hip [M25.551] INVALID FOR* More... Chronic pain of right hip [M25.551, G89.29] INVALID FOR* More... Prescriptions ordered this encounter Disp Refills Start End PEN NEEDLE, DIABETIC 31 GAUGE X 10/16 100 * 6 04/26/2018 Sig: One daily with insulin LIRAGLUTIDE 0.6 MG/0.1 ML (18 MG/3 M* 4 Pa* 1 04/26/2018 Route: SUBCUTANEOUS Sig: Inject 1.8 mg subcutaneously once daily. PRAVASTATIN 20 MG TABLET 30 t* 2 04/26/2018 Route: ORAL Sig: Take 1 tablet by mouth once daily. TOPIRAMATE 25 MG SPRINKLE CAPSULE 30 c* 2 04/26/2018 Route: ORAL Sig: Take 1 capsule by mouth daily at bedtime. ERGOCALCIFEROL (VITAMIN D2) 50,000 U* 12 c* 3 04/26/2018 Route: ORAL Sig: Take 1 capsule by mouth once each week. Medications Discontinued During This Encounter insulin needles, DISPOSABLE, (PEN NE* 100 * 6 02/09/2016 04/26/2018 Sig: One daily with insulin Disc: Reason for discontinue is not on file. liraglutide (VICTOZA 2-WILLIAM) 0.6 mg/0* 4 Pa* 1 08/03/2017 04/26/2018 Route: SUBCUTANEOUS Sig: Inject 1.2 mg subcutaneously once daily. Disc: Reason for discontinue is not on file. Encounter Status:Closed by SUNNY WELLS MD on 04/26/18 CNPTOUTREACH Observed: 04/26/2018 Status: COMPLETED Source: [place] 12:[address] [facility] REPOSITORY Patient Outreach (INTMWS) MIRZA DAIGLE ([id number]) 1990 F Date Time Provider Department 04/26/18 JEANNETTE BUSBYWS During your visit today, we recorded the following information about you: Jeannette Olmstead RN 04/26/2018 12:31 PM Signed PRIMARY CARE COORDINATION IN OFFICE VISIT WITH PCP Patient has been identified by name and date of . PCP Assessment/Plan: Reviewed PCP plan with patient using [facility] Pt to start PT at [facility] for hip strengthening and weight management. New meds: Topomax to poss weight loss assist, statin, Vit D. PCC Plan of Care: Patient concerns: R hip pain, plans to go to [place] in 3 yrs and they are actively saving for it now. She wants to weight less than 200# to fit in the seats, etc. Patient goals: Watching what she eatsetc. PCC Interventions: Will schedule PT, Bariatric surgery. Next Office Visit: 06/30/17 Plan For Next Call: Next week to schedule PT and consult for Bariatric Center Jeannette Bill RN Ambulatory Postpartum Rn Internal Medicine [facility] April 26, 2018 Allergies As of Date: 04/26/2018 Noted Allergy Reaction ASPIRIN 09/18/2005 4 - Hives 8 - GI Upset paper tape [Other] 06/26/2005 2 - Rash 7 - Swelling 9 - Itching Comments: Area gets very red also PENICILLINS 05/11/2013 4 - Hives TRAMADOL 04/14/2018 14 - Other: See Comments Comments: Tachycardia Date Reviewed: 04/26/2018 Reviewed by: Mónica Be LPN - Fully Assessed Reason for Visit: Postpartum Rn Chronic Care [3612] Prescriptions as of 04/26/2018 Sig: PEN NEEDLE, DIABETIC 31 GAUGE* One daily with insulin LIRAGLUTIDE 0.6 MG/0.1 ML (18* Inject 1.8 mg subcutaneously * PRAVASTATIN 20 MG TABLET Take 1 tablet by mouth once d* TOPIRAMATE 25 MG SPRINKLE CAP* Take 1 capsule by mouth daily* ERGOCALCIFEROL (VITAMIN D2) 5* Take 1 capsule by mouth once * MELOXICAM 15 MG TABLET Take 1 tablet by mouth once d* PANTOPRAZOLE 40 MG TABLET,DEL* Take 1 tablet by mouth once d* BLOOD SUGAR DIAGNOSTIC STRIPS Use as directed 4 times daily. METFORMIN ER 500 MG TABLET,EX* TAKE TWO TABLETS BY MOUTH WIT* INSULIN GLARGINE (U-100) 100 * Inject 40 Units subcutaneousl* COMPOUNDED PRESCRIPTION One Touch meter kit. LANCETS Test blood sugar(s) 5 times * FAMOTIDINE 20 MG TABLET Take 1 tablet by mouth daily * ALCOHOL SWABS Use as directed up to 5 times* EMPTY CONTAINER 1 Can twice daily. COMPOUNDED PRESCRIPTION 1 Each as needed. Sharps Cont* EMPTY CONTAINER 1 Container as needed (to dis* LANCETS Use as instructed Problem List As Of Date 04/26/2018 Noted Resolved Type 2 diabetes mellitus (HCC) [E11.9] INVALID FOR* More... More... More... Obesity, unspecified [E66.9] INVALID FOR* More... History of flank pain [Z87.898] INVALID FOR*06/21/2014 More... More... More... History of depression [Z86.59] INVALID FOR* More... More... More... More... More... More... More... Depression [F32.9] INVALID FOR* Pain in right hip [M25.551] INVALID FOR* More... Chronic pain of right hip [M25.551, G89.29] INVALID FOR* More... Encounter Status:Closed by JEANNETTE BILL on 04/26/18 PROGRESS Observed: 04/16/2018 Status: COMPLETED Source: [place] 9:[address] [facility] REPOS[facility] HNO ID: [id number] Author: Delia Chung) Fernanda Service: (none) Author Type: Nurse Practitioner Type: Progress Notes Filed: 04/16/2018 9:44 AM Note Text: Subjective HPI Mirza Daigle is a 28 year old female who presents with a cough and chest congestion for the past 2 days. She has no known sick contacts. She has taken Mucinex at home with no relief. Review of Systems Constitutional: Negative. Negative for fever. HENT: Negative for congestion, ear pain and sore throat. Respiratory: Positive for cough and sputum production. Negative for shortness of breath. Cardiovascular: Negative. Gastrointestinal: Positive for vomiting (twice yesterday). Negative for diarrhea. Musculoskeletal: Positive for back pain (with cough). Neurological: Positive for headaches. BP 106/66 Pulse 108 Temp 36.6 ?C (97.8 ?F) (Tympanic) Resp 16 Wt 129 kg (284 lb 6.4 oz) SpO2 98% BMI 45.27 kg/m? PAST MEDICAL HISTORY Diagnosis Date - Anemia WITH 2ND - Asthma since 14 years old, inhaler PRN - Complex ovarian cyst - Needs follow up imaging 06/09/2013 06/09/2013 An ultrasound was done 06/04/2013 that revealed a 6w5d fetus with DELFINA of 01/24/14. There is fluid seen adjacent to the gestastional sac possible subchorionic hemorrhage. the left ovary is within normal limits but the right ovary contains a 3.8 x 3 x 3.3 cm moderately complex cyst. TKRN 01/15/2014 - Confirmed 9 x 7 x 2.5 cm multi-loculated cyst at the time of . Needs outpatient follow up via TVUS. - Congenital hip deformity right - Diabetes, gestational insulin controlled - Family history of defects 06/09/2013 06/09/2013Patient's mother born with spina bifida. Patient's brother born with a hole in his heart. Patient has another brother that was born with Down syndrome. Patient and her brother born with a congenital hip deformity. Patient has had multiple corrective surgeries for the hip deformity.TKRN - Family history of Down syndrome 06/21/2014 Brother with DS - Family history of spina bifida 06/21/2014 Mom with Spina bifida in wheelchair - Gall stones 2007 Gall bladder removed - History of asthma 06/09/2013 06/09/2013Patient has a history of asthma. She uses an albuterol inhaler when necessary. TKRN - History of 06/09/2013 06/09/2013 Pt had 3 previous C sections. - History of kidney stones - Nausea/vomiting in 06/09/2013 06/09/2013She states she has nausea . Advised patient to call/come in if she has persistent vomiting or if her blood sugars were less than 70. TKRN - Ovarian cyst during 07/21/2014 07/21/14: see NT ultrasound: Right ovarian cyst 6cm - Pain in joint, pelvic region and thigh 01/10/2006 - Pancreatitis - Patient requested diagnostic testing 06/09/2013 06/09/2013 Patient desires early screening in with sequential testing. TKRN - depression - Prior macrosomia, antepartum 06/21/2014 - Short interval between pregnancies complicating , antepartum 06/09/2013 06/09/2013Nikki delivered her previous child August 14, 2012.TKRN - Type 2 diabetes mellitus (HCC) 05/22/2013 - Type 2 diabetes mellitus complicating , antepartum 05/28/2013 06/09/2013Nikki has a history of diabetes diagnosed 4 years ago. She was unaware that she was until she went into labor with her first . With her second she started insulin during the second trimester. She was referred to Dr. Tejada at [facility] for poorly controlled diabetes on metformin alone. She has since started insulin and has an appointment today with Dr. Guevara for followup. She has been keeping track of her blood sugars and presents with a journal today and these blood sugars are copy off and given to Dr. Guevara for his review. I have discussed with the patient the importance of good control of her blood sugars during and keeping a blood sugar log for review by the Doctor. She is reminded that she is to send her blood sugars in weekly to Dr. Guevara and she is to call sooner than a week if she has persistently high, greater the 180, or low blood sugars, less than 70. She is provided with a blood sugar log today. She has not had a diabetic foot or eye exam rece PAST SURGICAL HISTORY Procedure Laterality Date - DELIVERY ONLY , low transverse x3 - DELIVERY ONLY 01/19/15 , low transverse - IANDD ABSC; SMPL OR SGL 05/2013 cyst on left upper chest - LAPAROSCOPIC CHOLEYCYSTECTOMY Cholecystectomy, lap - PAST SURGICAL HISTORY OF tubes in ears per Dr Crockett at [facility] - PAST SURGICAL HISTORY OF Tonsils and Adenoids removed per Dr Crockett at [facility] - PAST SURGICAL HISTORY OF [address]roquin at [facility] and one by Dr. Camacho in [place] - REMOVAL OF OVARY/TUBE(S) 01/19/15 Salpingo-oophorectomy, right ovarian mass ALLERGIES Aspirin; Paper Tape [Other]; Penicillins; Tramadol MEDICATIONS meloxicam (MOBIC) 15 mg tablet Take 1 tablet by mouth once daily. X 10 days, then daily as needed with food. pantoprazole DR (PROTONIX) 40 mg tablet Take 1 tablet by mouth once daily. blood sugar diagnostic (FREESTYLE LITE STRIPS) test strip Use as directed 4 times daily. metFORMIN ER (GLUCOPHAGE XR) 500 mg 24 hr tablet TAKE TWO TABLETS BY MOUTH WITH BREAKFAST AND TWO TABLETS WITH SUPPER liraglutide (VICTOZA 2-WILLIAM) 0.6 mg/0.1 mL (18 mg/3 mL) pnij Inject 1.2 mg subcutaneously once daily. insulin glargine (BASAGLAR KWIKPEN U-100 INSULIN) 100 unit/mL (3 mL) inpn Inject 40 Units subcutaneously daily at bedtime. COMPOUNDED PRESCRIPTION One Touch meter kit. Lancets (ONETOUCH ULTRASOFT LANCETS) lancets Test blood sugar(s) 5 times daily. Dx: Type 2 DM - Controlled E11.9 , Insulin: yes famotidine (PEPCID) 20 mg tablet Take 1 tablet by mouth daily at bedtime. Alcohol Swabs padm Use as directed up to 5 times daily DM: yes Insulin: yes DX: E.11.9 Oral Medication Containers (SHARPS CONTAINER) misc 1 Can twice daily. insulin needles, DISPOSABLE, (PEN NEEDLE) 31 gauge x 5/16 ndle One daily with insulin COMPOUNDED PRESCRIPTION 1 Each as needed. Sharps Container. Dx:Diabetes mellitus, antepartum (648.03) Oral Medication Containers (BD SHARPS PRIVATE BANKER) misc 1 Container as needed (to disopse of insulin needles). Lancets (ONE TOUCH SURESOFT LANCING DEV) lancets Use as instructed FAMILY HISTORY Problem Relation Age of Onset - Diabetes Mother - Hypertension Mother - other (spina bifida) Mother - Heart Father - Hypertension Father - Cancer Maternal Grandmother - Alcohol/Drug Maternal Grandmother - Heart Paternal Grandmother - Aneurysm Paternal Grandmother - Stroke Brother - other (Down Syndrome) Brother - other (autism) Brother step brother - seizures and cerebral palsy also - other (Open family hx of Neural Tube Defect) Brother Social History Substance Use Topics - Smoking status: Never Smoker - Smokeless tobacco: Never Used Comment: mom's fiance smokes outside - Alcohol use No Objective Physical Exam Constitutional: She is well-developed, well-nourished, and in no distress. HENT: Right Ear: Tympanic membrane, external ear and ear canal normal. Left Ear: Tympanic membrane, external ear and ear canal normal. Nose: Nose normal. No rhinorrhea. Mouth/Throat: Uvula is midline, oropharynx is clear and moist and mucous membranes are normal. No posterior oropharyngeal edema or posterior oropharyngeal erythema. Cardiovascular: Normal rate, regular rhythm and normal heart sounds. Pulmonary/Chest: Effort normal and breath sounds normal. No tachypnea. No respiratory distress. She has no decreased breath sounds. She has no wheezes. She has no rales. Musculoskeletal: Arms: Neurological: She is alert. Skin: Skin is warm and dry. Nursing note and vitals reviewed. ASSESSMENT/PLAN: 1. Cough - ICD9: 786.2, ICD10: R05 (primary diagnosis) - CODEINE 10 MG-GUAIFENESIN 100 MG/5 ML ORAL LIQUID 2. Costochondritis - ICD9: 733.6, ICD10: M94.0 - splint with cough, ice pack, motrin PRN. - Follow-up with your PCP in 3-5 days if symptoms have not improved or sooner if symptoms worsen - Discussed red flags and need for immediate medical evaluation if any occur. - Discussed supportive care treatment with fluids, rest and analgesia. - Discussed expected course of illness Delia Michael APRN.CNP CNOV Observed: 04/16/2018 Status: COMPLETED Source: [place] 9:[address] [facility] REPOSIT[facility] Office Visit (WSTR) MIRZA DAIGLE ([id number]) 1990 F Date Time Provider Department 04/16/18 9:30 AM DELIA MICHAEL ([facility] During your visit today, we recorded the following information about you: Temperature Pulse Respiration Blood pressure 97.8 degrees 108/minute 16/minute 106/66 Weight 129 kg Delia Michael APRN.CNP 04/16/2018 9:44 AM Signed Subjective HPI Elodiaoziel Daigle is a 28 year old female who presents with a cough and chest congestion for the past 2 days. She has no known sick contacts. She has taken Mucinex at home with no relief. Review of Systems Constitutional: Negative. Negative for fever. HENT: Negative for congestion, ear pain and sore throat. Respiratory: Positive for cough and sputum production. Negative for shortness of breath. Cardiovascular: Negative. Gastrointestinal: Positive for vomiting (twice yesterday). Negative for diarrhea. Musculoskeletal: Positive for back pain (with cough). Neurological: Positive for headaches. BP 106/66 Pulse 108 Temp 36.6 ?C (97.8 ?F) (Tympanic) Resp 16 Wt 129 kg (284 lb 6.4 oz) SpO2 98% BMI 45.27 kg/m? PAST MEDICAL HISTORY Diagnosis Date - Anemia WITH 2ND - Asthma since 14 years old, inhaler PRN - Complex ovarian cyst - Needs follow up imaging 06/09/2013 06/09/2013 An ultrasound was done 06/04/2013 that revealed a 6w5d fetus with DELFINA of 01/24/14. There is fluid seen adjacent to the gestastional sac possible subchorionic hemorrhage. the left ovary is within normal limits but the right ovary contains a 3.8 x 3 x 3.3 cm moderately complex cyst. TKRN 01/15/2014 - Confirmed 9 x 7 x 2.5 cm multi-loculated cyst at the time of . Needs outpatient follow up via TVUS. - Congenital hip deformity right - Diabetes, gestational insulin controlled - Family history of defects 06/09/2013 06/09/2013Patient's mother born with spina bifida. Patient's brother born with a hole in his heart. Patient has another brother that was born with Down syndrome. Patient and her brother born with a congenital hip deformity. Patient has had multiple corrective surgeries for the hip deformity.TKRN - Family history of Down syndrome 06/21/2014 Brother with DS - Family history of spina bifida 06/21/2014 Mom with Spina bifida in wheelchair - Gall stones 2007 Gall bladder removed - History of asthma 06/09/2013 06/09/2013Patient has a history of asthma. She uses an albuterol inhaler when necessary. TKRN - History of 06/09/2013 06/09/2013 Pt had 3 previous C sections. - History of kidney stones - Nausea/vomiting in 06/09/2013 06/09/2013She states she has nausea . Advised patient to call/come in if she has persistent vomiting or if her blood sugars were less than 70. TKRN - Ovarian cyst during 07/21/2014 07/21/14: see NT ultrasound: Right ovarian cyst 6cm - Pain in joint, pelvic region and thigh 01/10/2006 - Pancreatitis - Patient requested diagnostic testing 06/09/2013 06/09/2013 Patient desires early screening in with sequential testing. TKRN - depression - Prior macrosomia, antepartum 06/21/2014 - Short interval between pregnancies complicating , antepartum 06/09/2013 06/09/2013Shguillermo delivered her previous child August 14, 2012.TKRN - Type 2 diabetes mellitus (HCC) 05/22/2013 - Type 2 diabetes mellitus complicating , antepartum 05/28/2013 06/09/2013Shguillermo has a history of diabetes diagnosed 4 years ago. She was unaware that she was until she went into labor with her first . With her second she started insulin during the second trimester. She was referred to Dr. Tejada at [facility] for poorly controlled diabetes on metformin alone. She has since started insulin and has an appointment today with Dr. Guevara for followup. She has been keeping track of her blood sugars and presents with a journal today and these blood sugars are copy off and given to Dr. Guevara for his review. I have discussed with the patient the importance of good control of her blood sugars during and keeping a blood sugar log for review by the Doctor. She is reminded that she is to send her blood sugars in weekly to Dr. Guevara and she is to call sooner than a week if she has persistently high, greater the 180, or low blood sugars, less than 70. She is provided with a blood sugar log today. She has not had a diabetic foot or eye exam rece PAST SURGICAL HISTORY Procedure Laterality Date - DELIVERY ONLY , low transverse x3 - DELIVERY ONLY 01/19/15 , low transverse - IANDD ABSC; SMPL OR SGL 05/2013 cyst on left upper chest - LAPAROSCOPIC CHOLEYCYSTECTOMY Cholecystectomy, lap - PAST SURGICAL HISTORY OF tubes in ears per Dr Crockett at [facility] - PAST SURGICAL HISTORY OF Tonsils and Adenoids removed per Dr Crockett at [facility] - PAST SURGICAL HISTORY OF [address]roquin at [facility] and one by Dr. Camacho in [place] - REMOVAL OF OVARY/TUBE(S) 01/19/15 Salpingo-oophorectomy, right ovarian mass ALLERGIES Aspirin; Paper Tape [Other]; Penicillins; Tramadol MEDICATIONS meloxicam (MOBIC) 15 mg tablet Take 1 tablet by mouth once daily. X 10 days, then daily as needed with food. pantoprazole DR (PROTONIX) 40 mg tablet Take 1 tablet by mouth once daily. blood sugar diagnostic (FREESTYLE LITE STRIPS) test strip Use as directed 4 times daily. metFORMIN ER (GLUCOPHAGE XR) 500 mg 24 hr tablet TAKE TWO TABLETS BY MOUTH WITH BREAKFAST AND TWO TABLETS WITH SUPPER liraglutide (VICTOZA 2-WILLIAM) 0.6 mg/0.1 mL (18 mg/3 mL) pnij Inject 1.2 mg subcutaneously once daily. insulin glargine (BASAGLAR KWIKPEN U-100 INSULIN) 100 unit/mL (3 mL) inpn Inject 40 Units subcutaneously daily at bedtime. COMPOUNDED PRESCRIPTION One Touch meter kit. Lancets (ONETOUCH ULTRASOFT LANCETS) lancets Test blood sugar(s) 5 times daily. Dx: Type 2 DM - Controlled E11.9 , Insulin: yes famotidine (PEPCID) 20 mg tablet Take 1 tablet by mouth daily at bedtime. Alcohol Swabs padm Use as directed up to 5 times daily DM: yes Insulin: yes DX: E.11.9 Oral Medication Containers (SHARPS CONTAINER) misc 1 Can twice daily. insulin needles, DISPOSABLE, (PEN NEEDLE) 31 gauge x 5/16 ndle One daily with insulin COMPOUNDED PRESCRIPTION 1 Each as needed. Sharps Container. Dx:Diabetes mellitus, antepartum (648.03) Oral Medication Containers (BD SHARPS PRIVATE BANKER) misc 1 Container as needed (to disopse of insulin needles). Lancets (ONE TOUCH SURESOFT LANCING DEV) lancets Use as instructed FAMILY HISTORY Problem Relation Age of Onset - Diabetes Mother - Hypertension Mother - other (spina bifida) Mother - Heart Father - Hypertension Father - Cancer Maternal Grandmother - Alcohol/Drug Maternal Grandmother - Heart Paternal Grandmother - Aneurysm Paternal Grandmother - Stroke Brother - other (Down Syndrome) Brother - other (autism) Brother step brother - seizures and cerebral palsy also - other (Open family hx of Neural Tube Defect) Brother Social History Substance Use Topics - Smoking status: Never Smoker - Smokeless tobacco: Never Used Comment: mom's marquise smokes outside - Alcohol use No Objective Physical Exam Constitutional: She is well-developed, well-nourished, and in no distress. HENT: Right Ear: Tympanic membrane, external ear and ear canal normal. Left Ear: Tympanic membrane, external ear and ear canal normal. Nose: Nose normal. No rhinorrhea. Mouth/Throat: Uvula is midline, oropharynx is clear and moist and mucous membranes are normal. No posterior oropharyngeal edema or posterior oropharyngeal erythema. Cardiovascular: Normal rate, regular rhythm and normal heart sounds. Pulmonary/Chest: Effort normal and breath sounds normal. No tachypnea. No respiratory distress. She has no decreased breath sounds. She has no wheezes. She has no rales. Musculoskeletal: Arms: Neurological: She is alert. Skin: Skin is warm and dry. Nursing note and vitals reviewed. ASSESSMENT/PLAN: 1. Cough - ICD9: 786.2, ICD10: R05 (primary diagnosis) - CODEINE 10 MG-GUAIFENESIN 100 MG/5 ML ORAL LIQUID 2. Costochondritis - ICD9: 733.6, ICD10: M94.0 - splint with cough, ice pack, motrin PRN. - Follow-up with your PCP in 3-5 days if symptoms have not improved or sooner if symptoms worsen - Discussed red flags and need for immediate medical evaluation if any occur. - Discussed supportive care treatment with fluids, rest and analgesia. - Discussed expected course of illness KATHARINE Garcia APRN.CNP 04/16/2018 9:38 AM Signed ASSESSMENT/PLAN: 1. Cough - ICD9: 786.2, ICD10: R05 - CODEINE 10 MG-GUAIFENESIN 100 MG/5 ML ORAL LIQUID - Follow-up with your PCP in 3-5 days if symptoms have not improved or sooner if symptoms worsen - Discussed red flags and need for immediate medical evaluation if any occur. - Discussed supportive care treatment with fluids, rest and analgesia. - Discussed expected course of illness Delia Michael APRN.CNP Treatment for Viral Upper Respiratory Tract Infections Your body will kill off the virus by itself. Additionally, you can prime your body's immune system. This may help you get better more quickly. 1. Drink lots of fluids - at least one gallon of non-caffeinated liquids per day 2. Make sure you are eating well 3. Get plenty of rest - at least 8 hours of sleep per night for adults and more for children We do not have any medications that kill off these viruses. Antibiotics are used to treat bacterial infections; however, they are not active against viral infections. There are some things that might help you feel better, though. 1. Vaporizers, humidifiers, hot showers, and hot fluids help open respiratory and sinus passages 2. Sudafed is a safe and effective decongestant 3. [place] Nasal [place] may offer relief of nasal and head congestion 4. Steve's Vapor Rub placed on a hot towel and draped over the head may relieve congestion 5. Tylenol and Advil help control fevers and headaches 6. Salt water gargles help relieve sore throats 7. Chloraceptic spray or throat lozenges may also help relieve sore throat symptoms 8. Robitussin DM will help loosen up secretions and also provide relief from a cough Occasionally, viral infections turn into something more serious. You should see your doctor or return to the Urgent Care if: 1. You have fevers for longer than five days 2. You have fevers above 102 degrees 3. You are still sick after 10 days 4. You have shortness of breath or wheezing 5. After several days you are getting worse rather than better Referring Provider: SELF [[id number]] Allergies As of Date: 04/16/2018 Noted Allergy Reaction ASPIRIN 09/18/2005 4 - Hives 8 - GI Upset paper tape [Other] 06/26/2005 2 - Rash 7 - Swelling 9 - Itching Comments: Area gets very red also PENICILLINS 05/11/2013 4 - Hives TRAMADOL 04/14/2018 14 - Other: See Comments Comments: Tachycardia Date Reviewed: 04/16/2018 Reviewed by: Delia ([facility]) Fernanda - Fully Assessed Reason for Visit: cough and congestion [Other] Cmt: x 3 days Primary Visit Diagnosis:Cough [R05] Other Visit Diagnosis:Costochondritis [M94.0] Order(s):codeine-guaiFENesin (ROBITUSSIN AC) 10-100 mg/5 mL syrupTake 5-10 mL by mouth four times daily as needed for Cough for up to 7 days. May cause drowsiness.Disp: 120 mLRfl: 0 Prescriptions as of 04/16/2018 Sig: MELOXICAM 15 MG TABLET Take 1 tablet by mouth once d* PANTOPRAZOLE 40 MG TABLET,DEL* Take 1 tablet by mouth once d* BLOOD SUGAR DIAGNOSTIC STRIPS Use as directed 4 times daily. METFORMIN ER 500 MG TABLET,EX* TAKE TWO TABLETS BY MOUTH WIT* LIRAGLUTIDE 0.6 MG/0.1 ML (18* Inject 1.2 mg subcutaneously * INSULIN GLARGINE (U-100) 100 * Inject 40 Units subcutaneousl* COMPOUNDED PRESCRIPTION One Touch meter kit. LANCETS Test blood sugar(s) 5 times * FAMOTIDINE 20 MG TABLET Take 1 tablet by mouth daily * ALCOHOL SWABS Use as directed up to 5 times* EMPTY CONTAINER 1 Can twice daily. PEN NEEDLE, DIABETIC 31 GAUGE* One daily with insulin COMPOUNDED PRESCRIPTION 1 Each as needed. Sharps Cont* EMPTY CONTAINER 1 Container as needed (to dis* LANCETS Use as instructed CODEINE 10 MG-GUAIFENESIN 100* Take 5-10 mL by mouth four ti* Problem List As Of Date 04/16/2018 Noted Resolved Type 2 diabetes mellitus (HCC) [E11.9] INVALID FOR* More... More... More... Obesity, unspecified [E66.9] INVALID FOR* More... History of flank pain [Z87.898] INVALID FOR*06/21/2014 More... More... More... History of depression [Z86.59] INVALID FOR* More... More... More... More... More... More... More... Depression [F32.9] INVALID FOR* Pain in right hip [M25.551] INVALID FOR* More... Chronic pain of right hip [M25.551, G89.29] INVALID FOR* More... Other instructions from your clinician: ASSESSMENT/PLAN: 1. Cough - ICD9: 786.2, ICD10: R05 - CODEINE 10 MG-GUAIFENESIN 100 MG/5 ML ORAL LIQUID - Follow-up with your PCP in 3-5 days if symptoms have not improved or sooner if symptoms worsen - Discussed red flags and need for immediate medical evaluation if any occur. - Discussed supportive care treatment with fluids, rest and analgesia. - Discussed expected course of illness Delia Michael, CAROL.EDUCATIONAL TECHNOLOGY SPECIALIST Treatment for Viral Upper Respiratory Tract Infections Your body will kill off the virus by itself. Additionally, you can prime your body's immune system. This may help you get better more quickly. 1. Drink lots of fluids - at least one gallon of non-caffeinated liquids per day 2. Make sure you are eating well 3. Get plenty of rest - at least 8 hours of sleep per night for adults and more for children We do not have any medications that kill off these viruses. Antibiotics are used to treat bacterial infections; however, they are not active against viral infections. There are some things that might help you feel better, though. 1. Vaporizers, humidifiers, hot showers, and hot fluids help open respiratory and sinus passages 2. Sudafed is a safe and effective decongestant 3. [place] Nasal [place] may offer relief of nasal and head congestion 4. Steve's Vapor Rub placed on a hot towel and draped over the head may relieve congestion 5. Tylenol and Advil help control fevers and headaches 6. Salt water gargles help relieve sore throats 7. Chloraceptic spray or throat lozenges may also help relieve sore throat symptoms 8. Robitussin DM will help loosen up secretions and also provide relief from a cough Occasionally, viral infections turn into something more serious. You should see your doctor or return to the Urgent Care if: 1. You have fevers for longer than five days 2. You have fevers above 102 degrees 3. You are still sick after 10 days 4. You have shortness of breath or wheezing 5. After several days you are getting worse rather than better Prescriptions ordered this encounter Disp Refills Start End CODEINE 10 MG-GUAIFENESIN 100 MG/5 M* 120 * 0 04/16/2018 04/23/2018 Class: Print RX Route: ORAL Sig: Take 5-10 mL by mouth four times daily as needed for Cough for up to 7 days. May cause drowsiness. Encounter Status:Closed by DELIA MICHAEL on 04/16/18 PROGRESS Observed: 04/14/2018 Status: COMPLETED Source: [place] 4:51 PM [facility] [place] REPOSITORY [facility] ID: [id number] Author: Jaida Dill Service: (none) Author Type: Physician Type: Progress Notes Filed: 04/14/2018 4:52 PM Note Text: Assessment and Plan Labs and history and records reviewed Patient here today for the Screening/baseline study visit Study IRB # [id number] Assessment of Diabetes Control, Cost of Care, and Quality of Life Utilizing a Functional Medicine Approach in Addition to Usual Care vs. Usual Care Alone Study Title: This is a prospective, randomized, controlled, open-label clinical trial with a 1:1 randomization of patients with diabetes who have been on insulin less than 5 years to receive either Functional Medicine care in addition to usual care or to continue usual care delivered by an photographer model. Door Liner Helper: Jaida Dill MD ([phone]) After hours phone contact #: Call [phone] or and ask for the Endocrinology Physician on-call 1. Type 2 diabetes mellitus with hyperglycemia, with long- term current use of insulin (HCC) - TSH BLD; Future - T4 FREE/FREE THYROX; Future - ECG COMPLETE W INTERPRETATION; Future 2. Goiter - TSH BLD; Future - T4 FREE/FREE THYROX; Future - ECG COMPLETE W INTERPRETATION; Future 3. Tachycardia - TSH BLD; Future - T4 FREE/FREE THYROX; Future - ECG COMPLETE W INTERPRETATION; Future Jaida Dill MD research study HPI Very pleasant 28-year-old female recent lost the baby She lost some pounds recently as well She has mild MR, a large goiter Patient here today for the Screening/baseline study visit Study IRB # [id number] Assessment of Diabetes Control, Cost of Care, and Quality of Life Utilizing a Functional Medicine Approach in Addition to Usual Care vs. Usual Care Alone Study Title: This is a prospective, randomized, controlled, open-label clinical trial with a 1:1 randomization of patients with diabetes who have been on insulin less than 5 years to receive either Functional Medicine care in addition to usual care or to continue usual care delivered by an photographer model. Door Liner Helper: Jaida Dill MD ([phone]) After hours phone contact #: Call [phone] or and ask for the Endocrinology Physician on-call Review Of Systems Weight loss 10 pounds GENERAL:Negative for malaise, significant weight loss and fever HEENT:Negative for frequent or significant headaches, significant changes in vision or vision problems, significant ear problems or hearing loss, nasal discharge or nose bleeds and sore throat, difficulty swallowing, mouth lesions NECK:Negative for lumps, goiter, pain and significant neck swelling RESPIRATORY: Negative for cough, wheezing and shortness of breath CARDIOVASCULAR: Negative for chest pain, leg swelling and palpitations GASTROINTESTINAL: Negative for abdominal discomfort, blood in stools or black stools and change in bowel habits GENITOURINARY: Negative for dysuria, frequency and incontinence MUSCULOSKELETAL: Negative for joint pain or swelling, back pain, and muscle pain. NEUROLOGIC:Negative for focal numbness or weakness, headaches and dizziness. SKIN:Negative for lesions, rash, and itching. PSYCHIATRIC: Negative for sleep disturbance, mood disorder and recent psychosocial stressors. HEMATOLOGIC/LYMPHATIC/IMMUNOLOGIC:Negative for prolonged bleeding, bruising easily, and swollen nodes. ENDOCRINE: Negative for cold or heat intolerance, polyuria, polydipsia and goiter. PAST MEDICAL HISTORY Diagnosis Date - Anemia WITH 2ND - Asthma since 14 years old, inhaler PRN - Complex ovarian cyst - Needs follow up imaging 06/09/2013 06/09/2013 An ultrasound was done 06/04/2013 that revealed a 6w5d fetus with DELFINA of 01/24/14. There is fluid seen adjacent to the gestastional sac possible subchorionic hemorrhage. the left ovary is within normal limits but the right ovary contains a 3.8 x 3 x 3.3 cm moderately complex cyst. TKRN 01/15/2014 - Confirmed 9 x 7 x 2.5 cm multi-loculated cyst at the time of . Needs outpatient follow up via TVUS. - Congenital hip deformity right - Diabetes, gestational insulin controlled - Family history of defects 06/09/2013 06/09/2013Patient's mother born with spina bifida. Patient's brother born with a hole in his heart. Patient has another brother that was born with Down syndrome. Patient and her brother born with a congenital hip deformity. Patient has had multiple corrective surgeries for the hip deformity.TKRN - Family history of Down syndrome 06/21/2014 Brother with DS - Family history of spina bifida 06/21/2014 Mom with Spina bifida in wheelchair - Gall stones 2007 Gall bladder removed - History of asthma 06/09/2013 06/09/2013Patient has a history of asthma. She uses an albuterol inhaler when necessary. TKRN - History of 06/09/2013 06/09/2013 Pt had 3 previous C sections. - History of kidney stones - Nausea/vomiting in 06/09/2013 06/09/2013She states she has nausea . Advised patient to call/come in if she has persistent vomiting or if her blood sugars were less than 70. TKRN - Ovarian cyst during 07/21/2014 07/21/14: see NT ultrasound: Right ovarian cyst 6cm - Pain in joint, pelvic region and thigh 01/10/2006 - Pancreatitis - Patient requested diagnostic testing 06/09/2013 06/09/2013 Patient desires early screening in with sequential testing. TKRN - depression - Prior macrosomia, antepartum 06/21/2014 - Short interval between pregnancies complicating , antepartum 06/09/2013 06/09/2013Nikki delivered her previous child August 14, 2012.TKRN - Type 2 diabetes mellitus (HCC) 05/22/2013 - Type 2 diabetes mellitus complicating , antepartum 05/28/2013 06/09/2013Nikki has a history of diabetes diagnosed 4 years ago. She was unaware that she was until she went into labor with her first . With her second she started insulin during the second trimester. She was referred to Dr. Tejada at [facility] for poorly controlled diabetes on metformin alone. She has since started insulin and has an appointment today with Dr. Guevara for followup. She has been keeping track of her blood sugars and presents with a journal today and these blood sugars are copy off and given to Dr. Guevara for his review. I have discussed with the patient the importance of good control of her blood sugars during and keeping a blood sugar log for review by the Doctor. She is reminded that she is to send her blood sugars in weekly to Dr. Guevara and she is to call sooner than a week if she has persistently high, greater the 180, or low blood sugars, less than 70. She is provided with a blood sugar log today. She has not had a diabetic foot or eye exam rece PAST SURGICAL HISTORY Procedure Laterality Date - DELIVERY ONLY , low transverse x3 - DELIVERY ONLY 01/19/15 , low transverse - IANDD ABSC; SMPL OR SGL 05/2013 cyst on left upper chest - LAPAROSCOPIC CHOLEYCYSTECTOMY Cholecystectomy, lap - PAST SURGICAL HISTORY OF tubes in ears per Dr Crockett at [facility] - PAST SURGICAL HISTORY OF Tonsils and Adenoids removed per Dr Crockett at [facility] - PAST SURGICAL HISTORY OF [address] Marroquin at [facility] and one by Dr. Camacho in [place] - REMOVAL OF OVARY/TUBE(S) 01/19/15 Salpingo-oophorectomy, right ovarian mass FAMILY HISTORY Problem Relation Age of Onset - Diabetes Mother - Hypertension Mother - other (spina bifida) Mother - Heart Father - Hypertension Father - Cancer Maternal Grandmother - Alcohol/Drug Maternal Grandmother - Heart Paternal Grandmother - Aneurysm Paternal Grandmother - Stroke Brother - other (Down Syndrome) Brother - other (autism) Brother step brother - seizures and cerebral palsy also - other (Open family hx of Neural Tube Defect) Brother Social History Marital status: Single Spouse name: Years of education: 10 Number of children: 2 Occupational History Occupation Employer Comment HOMEMAKER Social History Main Topics Smoking status: Never Smoker Smokeless tobacco: Never Used Comment: mom's marquise smokes outside Alcohol use: No Drug use: No Sexual activity: Yes Partners with: Male ALLERGIES Allergen Reactions - Aspirin Hives, GI Upset - Paper Tape [Other] Rash, Swelling, Itching Area gets very red also - Penicillins Hives - Tramadol Other: See Comments Tachycardia Current Outpatient Prescriptions: meloxicam (MOBIC) 15 mg tablet Take 1 tablet by mouth once daily. X 10 days, then daily as needed with food. pantoprazole DR (PROTONIX) 40 mg tablet Take 1 tablet by mouth once daily. blood sugar diagnostic (FREESTYLE LITE STRIPS) test strip Use as directed 4 times daily. metFORMIN ER (GLUCOPHAGE XR) 500 mg 24 hr tablet TAKE TWO TABLETS BY MOUTH WITH BREAKFAST AND TWO TABLETS WITH SUPPER liraglutide (VICTOZA 2-WILLIAM) 0.6 mg/0.1 mL (18 mg/3 mL) pnij Inject 1.2 mg subcutaneously once daily. insulin glargine (BASAGLAR KWIKPEN U-100 INSULIN) 100 unit/mL (3 mL) inpn Inject 40 Units subcutaneously daily at bedtime. COMPOUNDED PRESCRIPTION One Touch meter kit. Lancets (ONETOUCH ULTRASOFT LANCETS) lancets Test blood sugar(s) 5 times daily. Dx: Type 2 DM - Controlled E11.9 , Insulin: yes famotidine (PEPCID) 20 mg tablet Take 1 tablet by mouth daily at bedtime. Alcohol Swabs padm Use as directed up to 5 times daily DM: yes Insulin: yes DX: E.11.9 Oral Medication Containers (SHARPS CONTAINER) misc 1 Can twice daily. insulin needles, DISPOSABLE, (PEN NEEDLE) 31 gauge x 5/16 ndle One daily with insulin COMPOUNDED PRESCRIPTION 1 Each as needed. Sharps Container. Dx:Diabetes mellitus, antepartum (648.03) Oral Medication Containers (BD SHARPS PRIVATE BANKER) misc 1 Container as needed (to disopse of insulin needles). Lancets (ONE TOUCH SURESOFT LANCING DEV) lancets Use as instructed No current facility-administered medications for this visit. BP 116/77 Pulse 118 Temp (Src) 98.6 (Oral) Ht 5' 6.457 (1.69m) Wt 284 lb 3.2 oz (128.9kg) BMI 45.24 kg/(m2). General appearance: NAD, conversant Eyes: anicteric sclerae, moist conjunctivae; no lid-lag; PERRLA HENT: Atraumatic; oropharynx clear with moist mucous membranes and no mucosal ulcerations; normal hard and soft palate Neck: Trachea midline; FROM, supple, no thyromegaly or lymphadenopathy Lungs: CTA, with normal respiratory effort and no intercostal retractions CV: RRR, no MRGs Abdomen: Soft, non-tender; no masses or HSM Extremities: No peripheral edema or extremity lymphadenopathy Skin: Normal temperature, turgor and texture; no rash, ulcers or subcutaneous nodules Psych: Appropriate affect, alert and oriented to person, place and time Glucose (mg/dL) Date Value 03/04/2018 245 Creatinine (mg/dL) Date Value 03/04/2018 0.45 Potassium (mmol/L) Date Value 03/04/2018 4.0 AST (U/L) Date Value 03/04/2018 20 ALT (U/L) Date Value 03/04/2018 18 Hemoglobin A1C (%) Date Value 03/04/2018 8.2 Cholesterol, Total (mg/dL) Date Value 11/11/2017 168 HDL Cholesterol (mg/dL) Date Value 11/11/2017 34 ] LDL Cholesterol (mg/dL) Date Value 11/11/2017 81 Triglyceride (mg/dL) Date Value 11/11/2017 263 Albumin/Creat Ratio (mg/g) Date Value 11/11/2017 71 ] TSH Date Value Ref Range Status 11/11/2017 0.896 0.400 - 5.500 uU/mL Final Comment: If the patient is , TSH reference range varies by gestational period: First Trimester 0.100-2.500 uU/mL Second Trimester 0.200-3.000 uU/mL Third Trimester 0.300-3.000 uU/mL References: 1. Odom L, Makayla M, Ben EK, et al. Management of Thyroid Dysfunction during and : An Endocrine Society Clinical Practice Guideline. J Clin Endocrinol Metab, 2012:97:[id number]. 2. [place] FONTAINE. Overview of thyroid disease in . UpToDate. 2016. Accessed on November 18, 2015. Free T4 Date Value Ref Range Status 10/06/2013 1.1 0.7 - 1.8 ng/dL Final ] All questions answered No barriers for learning Jaida Dill MD ECG COMPLETE W Observed: 04/14/2018 Status: F Source: [place] INTERPRETATION 1:[address] [facility] REPOSITORY NAME : MIRZA DAIGLE PID : [id number] : 1990 Gender : Female Race : ORD : [id number] Procedure Date : Apr 14 2018 13:54:33 Edit Date : Apr 15 2018 13:53:21 Diagnosis:SINUS TACHYCARDIA OTHERWISE NORMAL ECG Confirmed by STACY BOWDEN M.D. ([id number]) on 04/15/2018 1:53:15 PM Ventricular Rate : 114 BPM Atrial Rate : 114 BPM P-R Interval : 142 ms QRS Duration : 74 ms Q-T Interval : 324 ms QTC Calculation(Bezet) : 446 ms P [place] : 49 degrees R [place] : 11 degrees T [place] : 25 degrees Test Reason : Location : 314 : J14 Overread By : STACY BOWDEN M.D. Edited By : STACY BOWDEN M.D. Referred By : JAIDA DILL Acquired by : ISRAEL LINARES Observed: 04/14/2018 Status: COMPLETED Source: [place] 12:[address] [facility] REPOSITORY Office Visit (ENDOMN) PILOMIRZA JACKSON Selam ([id number]) 1990 F Date Time Provider Department 04/14/18 12:30 PM JAIDA DILL During your visit today, we recorded the following information about you: Temperature Pulse Blood pressure Weight 98.6 degrees 118/minute 116/77 128.9 kg Height 1.688 m Jaida Dill MD 04/14/2018 4:52 PM Signed Assessment and Plan Labs and history and records reviewed Patient here today for the Screening/baseline study visit Study IRB # [id number] Assessment of Diabetes Control, Cost of Care, and Quality of Life Utilizing a Functional Medicine Approach in Addition to Usual Care vs. Usual Care Alone Study Title: This is a prospective, randomized, controlled, open-label clinical trial with a 1:1 randomization of patients with diabetes who have been on insulin less than 5 years to receive either Functional Medicine care in addition to usual care or to continue usual care delivered by an photographer model. Door Liner Helper: Jaida Dill MD ([phone]) After hours phone contact #: Call [phone] or and ask for the Endocrinology Physician on-call 1. Type 2 diabetes mellitus with hyperglycemia, with long- term current use of insulin (HCC) - TSH BLD; Future - T4 FREE/FREE THYROX; Future - ECG COMPLETE W INTERPRETATION; Future 2. Goiter - TSH BLD; Future - T4 FREE/FREE THYROX; Future - ECG COMPLETE W INTERPRETATION; Future 3. Tachycardia - TSH BLD; Future - T4 FREE/FREE THYROX; Future - ECG COMPLETE W INTERPRETATION; Future Jaida Dill MD Cc research study HPI Very pleasant 28-year-old female recent lost the baby She lost some pounds recently as well She has mild MR, a large goiter Patient here today for the Screening/baseline study visit Study IRB # [id number] Assessment of Diabetes Control, Cost of Care, and Quality of Life Utilizing a Functional Medicine Approach in Addition to Usual Care vs. Usual Care Alone Study Title: This is a prospective, randomized, controlled, open-label clinical trial with a 1:1 randomization of patients with diabetes who have been on insulin less than 5 years to receive either Functional Medicine care in addition to usual care or to continue usual care delivered by an photographer model. Door Liner Helper: Jaida Dill MD ([phone]) After hours phone contact #: Call [phone] or and ask for the Endocrinology Physician on-call Review Of Systems Weight loss 10 pounds GENERAL:Negative for malaise, significant weight loss and fever HEENT:Negative for frequent or significant headaches, significant changes in vision or vision problems, significant ear problems or hearing loss, nasal discharge or nose bleeds and sore throat, difficulty swallowing, mouth lesions NECK:Negative for lumps, goiter, pain and significant neck swelling RESPIRATORY: Negative for cough, wheezing and shortness of breath CARDIOVASCULAR: Negative for chest pain, leg swelling and palpitations GASTROINTESTINAL: Negative for abdominal discomfort, blood in stools or black stools and change in bowel habits GENITOURINARY: Negative for dysuria, frequency and incontinence MUSCULOSKELETAL: Negative for joint pain or swelling, back pain, and muscle pain. NEUROLOGIC:Negative for focal numbness or weakness, headaches and dizziness. SKIN:Negative for lesions, rash, and itching. PSYCHIATRIC: Negative for sleep disturbance, mood disorder and recent psychosocial stressors. HEMATOLOGIC/LYMPHATIC/IMMUNOLOGIC:Negative for prolonged bleeding, bruising easily, and swollen nodes. ENDOCRINE: Negative for cold or heat intolerance, polyuria, polydipsia and goiter. PAST MEDICAL HISTORY Diagnosis Date - Anemia WITH 2ND - Asthma since 14 years old, inhaler PRN - Complex ovarian cyst - Needs follow up imaging 06/09/2013 06/09/2013 An ultrasound was done 06/04/2013 that revealed a 6w5d fetus with DELFINA of 01/24/14. There is fluid seen adjacent to the gestastional sac possible subchorionic hemorrhage. the left ovary is within normal limits but the right ovary contains a 3.8 x 3 x 3.3 cm moderately complex cyst. TKRN 01/15/2014 - Confirmed 9 x 7 x 2.5 cm multi-loculated cyst at the time of . Needs outpatient follow up via TVUS. - Congenital hip deformity right - Diabetes, gestational insulin controlled - Family history of defects 06/09/2013 06/09/2013Patient's mother born with spina bifida. Patient's brother born with a hole in his heart. Patient has another brother that was born with Down syndrome. Patient and her brother born with a congenital hip deformity. Patient has had multiple corrective surgeries for the hip deformity.TKRN - Family history of Down syndrome 06/21/2014 Brother with DS - Family history of spina bifida 06/21/2014 Mom with Spina bifida in wheelchair - Gall stones 2007 Gall bladder removed - History of asthma 06/09/2013 06/09/2013Patient has a history of asthma. She uses an albuterol inhaler when necessary. TKRN - History of 06/09/2013 06/09/2013 Pt had 3 previous C sections. - History of kidney stones - Nausea/vomiting in 06/09/2013 06/09/2013She states she has nausea . Advised patient to call/come in if she has persistent vomiting or if her blood sugars were less than 70. TKRN - Ovarian cyst during 07/21/2014 07/21/14: see NT ultrasound: Right ovarian cyst 6cm - Pain in joint, pelvic region and thigh 01/10/2006 - Pancreatitis - Patient requested diagnostic testing 06/09/2013 06/09/2013 Patient desires early screening in with sequential testing. TKRN - depression - Prior macrosomia, antepartum 06/21/2014 - Short interval between pregnancies complicating , antepartum 06/09/2013 06/09/2013Nikki delivered her previous child August 14, 2012.TKRN - Type 2 diabetes mellitus (HCC) 05/22/2013 - Type 2 diabetes mellitus complicating , antepartum 05/28/2013 06/09/2013Shguillermo has a history of diabetes diagnosed 4 years ago. She was unaware that she was until she went into labor with her first . With her second she started insulin during the second trimester. She was referred to Dr. Tejada at [facility] for poorly controlled diabetes on metformin alone. She has since started insulin and has an appointment today with Dr. Guevara for followup. She has been keeping track of her blood sugars and presents with a journal today and these blood sugars are copy off and given to Dr. Guevara for his review. I have discussed with the patient the importance of good control of her blood sugars during and keeping a blood sugar log for review by the Doctor. She is reminded that she is to send her blood sugars in weekly to Dr. Guevara and she is to call sooner than a week if she has persistently high, greater the 180, or low blood sugars, less than 70. She is provided with a blood sugar log today. She has not had a diabetic foot or eye exam rece PAST SURGICAL HISTORY Procedure Laterality Date - DELIVERY ONLY , low transverse x3 - DELIVERY ONLY 01/19/15 , low transverse - IANDD ABSC; SMPL OR SGL 05/2013 cyst on left upper chest - LAPAROSCOPIC CHOLEYCYSTECTOMY Cholecystectomy, lap - PAST SURGICAL HISTORY OF tubes in ears per Dr Crockett at [facility] - PAST SURGICAL HISTORY OF Tonsils and Adenoids removed per Dr Crockett at [facility] - PAST SURGICAL HISTORY OF [address] Marroquin at [facility] and one by Dr. Camacho in [place] - REMOVAL OF OVARY/TUBE(S) 01/19/15 Salpingo-oophorectomy, right ovarian mass FAMILY HISTORY Problem Relation Age of Onset - Diabetes Mother - Hypertension Mother - other (spina bifida) Mother - Heart Father - Hypertension Father - Cancer Maternal Grandmother - Alcohol/Drug Maternal Grandmother - Heart Paternal Grandmother - Aneurysm Paternal Grandmother - Stroke Brother - other (Down Syndrome) Brother - other (autism) Brother step brother - seizures and cerebral palsy also - other (Open family hx of Neural Tube Defect) Brother Social History Marital status: Single Spouse name: Years of education: 10 Number of children: 2 Occupational History Occupation Employer Comment [employer] Social History Main Topics Smoking status: Never Smoker Smokeless tobacco: Never Used Comment: mom's fiance smokes outside Alcohol use: No Drug use: No Sexual activity: Yes Partners with: Male ALLERGIES Allergen Reactions - Aspirin Hives, GI Upset - Paper Tape [Other] Rash, Swelling, Itching Area gets very red also - Penicillins Hives - Tramadol Other: See Comments Tachycardia Current Outpatient Prescriptions: meloxicam (MOBIC) 15 mg tablet Take 1 tablet by mouth once daily. X 10 days, then daily as needed with food. pantoprazole DR (PROTONIX) 40 mg tablet Take 1 tablet by mouth once daily. blood sugar diagnostic (FREESTYLE LITE STRIPS) test strip Use as directed 4 times daily. metFORMIN ER (GLUCOPHAGE XR) 500 mg 24 hr tablet TAKE TWO TABLETS BY MOUTH WITH BREAKFAST AND TWO TABLETS WITH SUPPER liraglutide (VICTOZA 2-WILLIAM) 0.6 mg/0.1 mL (18 mg/3 mL) pnij Inject 1.2 mg subcutaneously once daily. insulin glargine (BASAGLAR KWIKPEN U-100 INSULIN) 100 unit/mL (3 mL) inpn Inject 40 Units subcutaneously daily at bedtime. COMPOUNDED PRESCRIPTION One Touch meter kit. Lancets (ONETOUCH ULTRASOFT LANCETS) lancets Test blood sugar(s) 5 times daily. Dx: Type 2 DM - Controlled E11.9 , Insulin: yes famotidine (PEPCID) 20 mg tablet Take 1 tablet by mouth daily at bedtime. Alcohol Swabs padm Use as directed up to 5 times daily DM: yes Insulin: yes DX: E.11.9 Oral Medication Containers (SHARPS CONTAINER) misc 1 Can twice daily. insulin needles, DISPOSABLE, (PEN NEEDLE) 31 gauge x 5/16 ndle One daily with insulin COMPOUNDED PRESCRIPTION 1 Each as needed. Sharps Container. Dx:Diabetes mellitus, antepartum (648.03) Oral Medication Containers (BD SHARPS PRIVATE BANKER) misc 1 Container as needed (to disopse of insulin needles). Lancets (ONE TOUCH SURESOFT LANCING DEV) lancets Use as instructed No current facility-administered medications for this visit. BP 116/77 Pulse 118 Temp (Src) 98.6 (Oral) Ht 5' 6.457 (1.69m) Wt 284 lb 3.2 oz (128.9kg) BMI 45.24 kg/(m2). General appearance: NAD, conversant Eyes: anicteric sclerae, moist conjunctivae; no lid-lag; PERRLA HENT: Atraumatic; oropharynx clear with moist mucous membranes and no mucosal ulcerations; normal hard and soft palate Neck: Trachea midline; FROM, supple, no thyromegaly or lymphadenopathy Lungs: CTA, with normal respiratory effort and no intercostal retractions CV: RRR, no MRGs Abdomen: Soft, non-tender; no masses or HSM Extremities: No peripheral edema or extremity lymphadenopathy Skin: Normal temperature, turgor and texture; no rash, ulcers or subcutaneous nodules Psych: Appropriate affect, alert and oriented to person, place and time Glucose (mg/dL) Date Value 03/04/2018 245 Creatinine (mg/dL) Date Value 03/04/2018 0.45 Potassium (mmol/L) Date Value 03/04/2018 4.0 AST (U/L) Date Value 03/04/2018 20 ALT (U/L) Date Value 03/04/2018 18 Hemoglobin A1C (%) Date Value 03/04/2018 8.2 Cholesterol, Total (mg/dL) Date Value 11/11/2017 168 HDL Cholesterol (mg/dL) Date Value 11/11/2017 34 ] LDL Cholesterol (mg/dL) Date Value 11/11/2017 81 Triglyceride (mg/dL) Date Value 11/11/2017 263 Albumin/Creat Ratio (mg/g) Date Value 11/11/2017 71 ] TSH Date Value Ref Range Status 11/11/2017 0.896 0.400 - 5.500 uU/mL Final Comment: If the patient is , TSH reference range varies by gestational period: First Trimester 0.100-2.500 uU/mL Second Trimester 0.200-3.000 uU/mL Third Trimester 0.300-3.000 uU/mL References: 1. Odom L, Makayla M, Ben EK, et al. Management of Thyroid Dysfunction during and : An Endocrine Society Clinical Practice Guideline. J Clin Endocrinol Metab, 2012:97:2543- 2565. 2. [place] FONTAINE. Overview of thyroid disease in . UpToDate. 2016. Accessed on November 18, 2015. Free T4 Date Value Ref Range Status 10/06/2013 1.1 0.7 - 1.8 ng/dL Final ] All questions answered No barriers for learning Jaida Dill MD Referring Provider: JAIDA DILL [[id number]] Allergies As of Date: 04/14/2018 Noted Allergy Reaction ASPIRIN 09/18/2005 4 - Hives 8 - GI Upset paper tape [Other] 06/26/2005 2 - Rash 7 - Swelling 9 - Itching Comments: Area gets very red also PENICILLINS 05/11/2013 4 - Hives TRAMADOL 04/14/2018 14 - Other: See Comments Comments: Tachycardia Date Reviewed: 04/14/2018 Reviewed by: Peewee (Rn) RONIT Guzman - Fully Assessed Primary Visit Diagnosis:Type 2 diabetes mellitus with hyperglycemia, with long-term current use of insulin (HCC) [E11.65, Z79.4] Other Visit Diagnoses:Goiter [E04.9] Tachycardia [R00.0] Order(s):TSH BLD [SQTSH] Order #: [id number] FUTURE T4 FREE/FREE THYROX [SQFT4] Order #: [id number] FUTURE ECG COMPLETE W INTERPRETATION [ECG01] Order #: [id number] FUTURE Prescriptions as of 04/14/2018 Sig: MELOXICAM 15 MG TABLET Take 1 tablet by mouth once d* PANTOPRAZOLE 40 MG TABLET,DEL* Take 1 tablet by mouth once d* BLOOD SUGAR DIAGNOSTIC STRIPS Use as directed 4 times daily. METFORMIN ER 500 MG TABLET,EX* TAKE TWO TABLETS BY MOUTH WIT* LIRAGLUTIDE 0.6 MG/0.1 ML (18* Inject 1.2 mg subcutaneously * INSULIN GLARGINE (U-100) 100 * Inject 40 Units subcutaneousl* COMPOUNDED PRESCRIPTION One Touch meter kit. LANCETS Test blood sugar(s) 5 times * FAMOTIDINE 20 MG TABLET Take 1 tablet by mouth daily * ALCOHOL SWABS Use as directed up to 5 times* EMPTY CONTAINER 1 Can twice daily. PEN NEEDLE, DIABETIC 31 GAUGE* One daily with insulin COMPOUNDED PRESCRIPTION 1 Each as needed. Sharps Cont* EMPTY CONTAINER 1 Container as needed (to dis* LANCETS Use as instructed Problem List As Of Date 04/14/2018 Noted Resolved Type 2 diabetes mellitus (HCC) [E11.9] INVALID FOR* More... More... More... Obesity, unspecified [E66.9] INVALID FOR* More... History of flank pain [Z87.898] INVALID FOR*06/21/2014 More... More... More... History of depression [Z86.59] INVALID FOR* More... More... More... More... More... More... More... Depression [F32.9] INVALID FOR* Pain in right hip [M25.551] INVALID FOR* More... Chronic pain of right hip [M25.551, G89.29] INVALID FOR* More... Encounter Status:Closed by JAIDA DILL MD on 04/14/18 CBC Collected: 04/14/2018 Status: F Source: [place] 12:[address] [facility] REPOSITORY TYPE CODE TESTS RESULT OUT OF REFERENCE UNITS RANGE LAB WBC 3.70-11.00 k/uL WBC 8.21 LAB RBC 3.90-5.20 m/uL RBC 4.59 LAB HGB 11.5-15.5 g/dL Hemoglobin 14.6 LAB HCT 36.0-46.0 % Hematocrit 42.1 LAB MCV 80.0-100.0 fL MCV 91.7 LAB MCH 26.0-34.0 pG MCH 31.8 LAB MCHC 30.5-36.0 g/dL MCHC 34.7 LAB RDWCV 11.5-15.0 % RDW-CV 13.2 LAB PLTCT 150-400 k/uL Platelet Count 360 LAB MPV 9.0-12.7 fL MPV 9.3 LAB ABSNUC <0.01 k/uL Absolute nRBC <0.01 Performed By: #### CBC, WSR, CMP, HCGQT, HSCRP, HOMCYS, HBA1C, CPEPT, VITD, GADCAB, NMRLIP #### [facility] [address], [place] [address] SED RATE WESTERGREN Collected: 04/14/2018 Status: F Source: [place] 12:[address] [facility] REPOSITORY TYPE CODE TESTS RESULT OUT OF REFERENCE UNITS RANGE LAB WSR 0-20 mm/hr Sed Rate Westergren 15 Performed By: #### CBC, WSR, CMP, HCGQT, HSCRP, HOMCYS, HBA1C, CPEPT, VITD, GADCAB, NMRLIP #### [facility] [address] [place], [place] [address] COMP METABOLIC PANEL Collected: 04/14/2018 Status: F Source: [place] 12:28 PM [facility] REPOSITORY TYPE CODE TESTS RESULT OUT OF REFERENCE UNITS RANGE LAB TP 6.3-8.0 g/dL Protein, Total 6.9 LAB ALB 3.9-4.9 g/dL Albumin 4.7 LAB CA 8.5-10.2 mg/dL Calcium, Total 9.6 LAB TBIL 0.2-1.3 mg/dL Bilirubin, Total 1.3 LAB ALKP 34-123 U/L Alkaline Phosphatase 87 LAB AST 13-35 U/L AST 30 LAB GLU 74-99 mg/dL Glucose High 127 Result Comment: The [place] Diabetes Association (ADA) provides guidance for cutoff values for fasting glucose and random glucose. The ADA defines fasting as no caloric intake for at least 8 hours. Fas ting plasma glucose results between 100 to 125 mg/dL indicate increased risk for diabetes (prediabetes). Fasting plasma glucose results greater than or equal to 126 mg/dL meet the criteria for diagnosis of diabetes. In the absence of unequivocal hyperglycemia, results should be confirmed by repeat testing. In a patient with classic symptoms of hyperglycemia or hyperglycemic crisis, random plasma glucose results greater than or equal to 200 mg/dL meet the criteria for diagnosis of diabetes. Reference: Standards of Medical Care in Diabetes 2016, [place] Diabetes Association. Diabetes Care. 2016.39(Suppl 1). LAB BUN 7-21 mg/dL BUN 7 LAB CRET 0.58-0.96 mg/dL Low Creatinine 0.46 LAB NA 136-144 mmol/L Sodium 140 LAB K 3.7-5.1 mmol/L Potassium 3.9 LAB CL 97-105 mmol/L Chloride 97 LAB CO2 22-30 mmol/L Low CO2 21 LAB AGAP 9-18 mmol/L Anion Gap High 22 LAB ALT 7-38 U/L ALT 31 LAB GFRAA eGFR- Amer. >60 LAB GFRNAA . eGFR-All Other Races >60 Result Comment: eGFR (Estimated GFR) Units of measure: mL/min/1.73 meters squared eGFR is derived from the reexpressed MDRD Study equation using the following parameters: serum creatinine, age, gender and race. The creatinine assay has been calibrated to be traceable to IDMS. An eGFR <60 mL/min/1.73m2 for >3 months is consistent with chronic kidney disease. Refer to KDOQI guidelines for clinical interpretation. In patients with unstable renal function, e.g. those with acute kidney injury, the eGFR may not accurately reflect actual GFR. Performed By: #### CBC, WSR, CMP, HCGQT, HSCRP, HOMCYS, HBA1C, CPEPT, VITD, GADCAB, NMRLIP #### [facility] [address] [place] [id number] HCG, QUANTITATIVE BL Collected: 04/14/2018 Status: F Source: [place] 12:28 [facility] REPOSITORY TYPE CODE TESTS RESULT OUT OF REFERENCE UNITS RANGE LAB HCGQT <5.0 mU/mL HCG, Quantitative Bl <0.6 Result Comment: NEGATIVE Performed By: #### CBC, WSR, CMP, HCGQT, HSCRP, HOMCYS, HBA1C, CPEPT, VITD, GADCAB, NMRLIP #### [facility] [address] [place], [place] [address] ULTRA-SENSITIVE CRP Collected: 04/14/2018 Status: F Source: [place] 12:28 [facility] REPOSITORY TYPE CODE TESTS RESULT OUT OF REFERENCE UNITS RANGE LAB CRPUS <3.1 mg/L High UltraSens 12.1 C-ReacProt Result Comment: (NOTE) hsCRP < 1.0 mg/L, relative risk is low hsCRP 1.0-3.0 mg/L, relative risk is average hsCRP > 3.0 mg/L, relative risk is high Reference: Mustafa TA, Sheng GA, Ben RW, et al. Markers of Inflammation and Cardiovascular Disease. Application to Clinical and Public Health Practice. A Statement for Healthcare Professionals From the Centers for Disease Control and Prevention and the [place] Heart Association. Circulation 2003;107:499-511. Performed By: #### CBC, WSR, CMP, HCGQT, HSCRP, HOMCYS, HBA1C, CPEPT, VITD, GADCAB, NMRLIP #### [facility] [address], [place] [id number] HOMOCYSTEINE Collected: 04/14/2018 Status: F Source: [place] 12:28 [facility] REPOSITORY TYPE CODE TESTS RESULT OUT OF REFERENCE UNITS RANGE LAB HOMCYS <15.1 umol/L Homocysteine 9.3 Performed By: #### CBC, WSR, CMP, HCGQT, HSCRP, HOMCYS, HBA1C, CPEPT, VITD, GADCAB, NMRLIP #### [facility] [address] [place] [address] HEMOGLOBIN A1C Collected: 04/14/2018 Status: F Source: [place] 12:28 [facility] REPOSITORY TYPE CODE TESTS RESULT OUT OF REFERENCE UNITS RANGE LAB HGBA1C 4.3-5.6 % High Hemoglobin A1c 8.0 LAB HBA0 mg/dL Est. Average Glucose 183 Result Comment: eAG: (Estimated average glucose) is a calculated value from HgbA1c and is client care representative of the average blood glucose level in the last 2-3 month period. Performed By: #### CBC, WSR, CMP, HCGQT, HSCRP, HOMCYS, HBA1C, CPEPT, VITD, GADCAB, NMRLIP #### [place] [address] C-PEPTIDE Collected: 04/14/2018 Status: F Source: [place] 12:[address] [place] [address] REPOSITORY TYPE CODE TESTS RESULT OUT OF REFERENCE UNITS RANGE LAB CPEPT 0.8-3.2 ng/mL C-Peptide 1.1 Performed By: #### CBC, WSR, CMP, HCGQT, HSCRP, HOMCYS, HBA1C, CPEPT, VITD, GADCAB, NMRLIP #### [place] [address] VITAMIN D 25 HYDROXY Collected: 04/14/2018 Status: F Source: [place] 12:[address] [facility] REPOSITORY TYPE CODE TESTS RESULT OUT OF REFERENCE UNITS RANGE LAB VITD 31.0-80.0 ng/mL Low Vitamin D 25 16.0 Hydroxy Result Comment: Classification of 25 [place] Vitamin D status: Insufficiency/Moderate Deficiency: < or = 30 ng/mL Sufficiency/Optimal Levels: 31 to 80 ng/mL Toxicity: > 100 ng/mL Test performed by chemiluminescent immunoassay. Performed By: #### CBC, WSR, CMP, HCGQT, HSCRP, HOMCYS, HBA1C, CPEPT, VITD, GADCAB, NMRLIP #### [facility] [address] [place], [place] [address] GLUTAMIC AC DECAR AB Collected: 04/14/2018 Status: F Source: [place] 12:[address] [facility] REPOSITORY TYPE CODE TESTS RESULT OUT OF REFERENCE UNITS RANGE LAB GADAB <5.0 IU/mL High Glutamic Ac >250.0 Decar Ab Performed By: #### CBC, WSR, CMP, HCGQT, HSCRP, HOMCYS, HBA1C, CPEPT, VITD, GADCAB, NMRLIP #### [facility] [address] [place], [place] [address] NMR LIPOPROTEIN PROF Collected: 04/14/2018 Status: C Source: [place] 12:[address] [facility] REPOSITORY TYPE CODE TESTS RESULT OUT OF REFERENCE UNITS RANGE LAB [facility] [place] NMRLIP SERUM RED Source Result Comment: Corrected on 04/14 AT 2137: Previously reported as Unknown LAB LDLPN <1000 nmol/L LDL Particle High Number 1920 LAB NMRLDL 0-99 mg/dL LDL Cholesterol 95 Result Comment: (NOTE) LDL-C is inaccurate if patient is non-fasting. LAB NMRHDL >39 mg/dL Low HDL Cholesterol 35 LAB NMRTRG 0-149 mg/dL Triglycerides High 179 LAB NMRTOT 100-199 mg/dL Total Cholesterol 166 LAB HDLP >=30.5 umol/L Low Total HDL Particles 27.4 LAB SMLDLP <=527 nmol/L Small LDL-P High 927 LAB LVLDLP <=2.7 nmol/L Large VLDL-P High 9.6 LAB LGHDLP >=4.8 umol/L Low Large HDL-P 2.7 LAB VLDLSZ <=46.6 nm VLDL Size High 64.2 LAB LDLSZE >20.5 nm LDL Size 20.6 Result Comment: (NOTE) Small LDL-P and LDL Size are associated with CVD risk, but not after LDL-P is taken into account. These assays were developed and their performance characteristics determined by [employer]. These assays have not been cleared by the US Food and Drug Administration. The clinical utility of these laboratory values have not been fully established. LAB HDLSZE >=9.2 nm Low HDL Size 8.7 LAB LPIR <=45 High LP / IR Score 95 Result Comment: (NOTE) LP-IR Score is inaccurate if patient is non-fasting. The LP-IR score is a laboratory developed index that has been associated with insulin resistance and diabetes risk and should be used as one component of a physician's clinical assessment. Neither the LP-IR score nor the subclasses listed above have been cleared by the US Food and Drug Administration. Test performed at: [address] [address] Vladimir Leonard MD Performed By: #### CBC, WSR, CMP, HCGQT, HSCRP, HOMCYS, HBA1C, CPEPT, VITD, GADCAB, NMRLIP #### [facility] [address] [place], [place] [address] TSH Collected: 04/14/2018 Status: F Source: [place] 12:[address] [facility] REPOSITORY TYPE CODE TESTS RESULT OUT OF RANGE REFERENCE UNITS LAB TSH 0.400-5.500 uU/mL TSH 0.499 Result Comment: If the patient is , TSH reference range varies by gestational period: First Trimester 0.100-2.500 uU/mL Second Trimester 0.200-3.000 uU/mL Third Trimester 0.300-3.000 uU/mL References: 1. Odom L, Makayla M, Ben EK, et al. Management of Thyroid Dysfunction during and : An Endocrine Society Clinical Practice Guideline. J Clin Endocrinol Metab, 2012:97:8152-5882. 2. [place] FONTAINE. Overview of thyroid disease in . UpToDate. 2016. Accessed on November 18, 2015. Performed By: #### TSH, FT4 #### [facility] [address] [place], [place] [address] FREE T4 Collected: 04/14/2018 Status: F Source: [place] 12:[address] [facility] REPOSITORY TYPE CODE TESTS RESULT OUT OF RANGE REFERENCE UNITS LAB FT4 0.9-1.7 ng/dL Free T4 1.4 Performed By: #### TSH, FT4 #### [facility] [address] [place], [place] [address] F2 ISOPROSTANE Collected: 04/14/2018 Status: F Source: [place] 12:[address] [facility] REPOSITORY TYPE CODE TESTS RESULT OUT OF REFERENCE UNITS RANGE LAB F2ISO ng/mL F2 Isoprostane 1.41 LAB F2CRE 20.0-300.0 mg/dL Urine Creatinine 137.3 Result Comment: (NOTE) Test performed at: [facility] [address], [address] [place] [address] Stormy Jaicnto, PH.D., DABCC, FACB LAB F2CRAT <0.86 ng/mg High F2/Creat Ratio 1.03 Result Comment: (NOTE) Elevated urinary F2-Isoprostanes are associated with an increased risk of coronary heart disease (CHD) (1). (Reference: 1-Graeme et al. Circulation. 2004; 109: 843-848). This test is performed by a Liquid Chromatography-Tandem Mass Spectrometry (LC/MS/MS) method. This test was developed and its performance characteristics determined by the [facility]. It has not been cleared or approved by the U.S. FDA. The [facility] is regulated under Clinical Laboratory Improvement Amendments (CLIA) as qualified to perform high-complexity testing. This test is used for clinical purposes. It should not be regarded as investigational or for research. PROGRESS Observed: 04/14/2018 Status: COMPLETED Source: [place] 10:[address] [facility] REPOSITORY HNO ID: [id number] Author: Peewee (Ronit) RONIT Guzman Service: (none) Author Type: Registered Nurse Type: Progress Notes Filed: 04/16/2018 12:49 PM Note Text: IRB: [id number] Study Title: Assessment of Diabetes Control, Cost of Care, and Quality of Life Utilizing a Functional Medicine Approach in Addition to Usual Care vs. Usual Care PI: Jaida Dill M.D. ([phone]) Nurse Research Coordinator: Peewee Guzman RN ([phone]) Research Coordinator: Jatin Conner After hours phone contact #: Call [phone] or and ask for the Endocrinology Physician on-call Patient here today for the Screen Visit/Baseline Visit Patient identified by name and date. Study of : Subject Screening ID # [id number] Subject Initials: ANT Consent: Version: 7 Version Date: 02/20/18 The above mentioned patient was informed of the risks/benefits and alternatives to participation (not to participate) as outlined in the informed consent document and the patient voluntarily agrees to participate in the Study IRB # [id number]. The patient has read and verbalizes understanding of the consent document. All questions have been answered.The above mentioned patient voluntarily signed the informed consent document. All study procedures started after the above mentioned patient signed the Informed Consent document. The study was explained and reviewed at length with the patient. All risks, benefits, and alternatives of the study were explained and reviewed with the patient. Study related procedures and follow-up were discussed. The consent form was given to the patient to read. All of the patient's study related questions were answered. The patient expressed full understanding of the study, and stated she would like to participate. The patient and I both signed and dated the most recently approved consent form. A copy of the signed consent form was then given to the patient for her own records and reference. The original copy of the consent form will be kept on file. Study specific education was given. I provided the patient with all of my contact information should she have any other questions and/or concerns. Date and time of consent:: 04/14/18 1115AM Inclusion/Exclusion review: Yes Consent to biorepository: No Monthly Telephone Assessments: Remind patient of importance of monthly telephone assessments: Yes Remind patient to return phone call if voicemail left: Yes Verify patient home address: Yes Parking voucher provided to patient: Yes Best way to contact/reach patient: Telephone The above mentioned patient received a copy of the informed consent document. Yes Verified current Address and email in [employer]. Women only questions: Female Have you been in the past year? Yes, Miscarried at 12 weeks in 09/2017. Current Outpatient Prescriptions on File Prior to Visit: 1.pantoprazole DR (PROTONIX) 40 mg tablet Take 1 tablet by mouth once daily. blood sugar diagnostic (FREESTYLE LITE STRIPS) test strip Use as directed 4 times daily. 2. metFORMIN ER (GLUCOPHAGE XR) 500 mg 24 hr tablet TAKE TWO TABLETS BY MOUTH WITH BREAKFAST AND TWO TABLETS WITH SUPPER 3. liraglutide (VICTOZA 2-WILLIAM) 0.6 mg/0.1 mL (18 mg/3 mL) pnij Inject 1.2 mg subcutaneously once daily. 4. insulin glargine (BASAGLAR KWIKPEN U-100 INSULIN) 100 unit/mL (3 mL) inpn Inject 40 Units subcutaneously daily at bedtime. No current facility-administered medications on file prior to visit. Review supplements and medication currently using: Yes Insulin Dose In units: 40 units daily BASAGLAR Total medication number including Diabetic medications : 4 How many antihypertensive's: No How many antihyperlipidemia: No Is subject taking hormone replacement Meds? No Is subject taking thyroid Hormone replacement Therapy? No Diabetes medication number: 3 In the past 6 months has patient self reported hypoglycemia episodes? No In the past 6 months hypoglycemia episodes confirmed by glucometer readings? No In the past 6 months any ED visits or hospitalizations for hypoglycemia? No Demographics: Female, White, Non Hispanice History - medical/surgical reviewed and discussed with patient. -Obesity -Type 2 Diabetes -Congenital Right hip dysplasia Note: significant Surgical history: Yes, See below -4 C-sections (2006, 2012, 2013, 2014) -6 R Hip Surgeries (last hip surgery 2006, can't recall previous surgery years). -Cholecystectomy (2006) -Right salpingo-oophrectomy (2014) -Tonsils and Adenoid removed as child (unsure of year/age) Normal or abnormal Dr. Dill also noted tremor on Physical Exam 1. General Appearance: Normal: Yes 2. Neck (including Thyroid): Normal: No, Abnormal--Goiter 3. Skin/Dermatologic Normal: Yes 4. HEENT (Head, ears, eyes ,nose, throat) Normal: Yes 5. RESPIRATORY (Lungs) History of steroid use) Normal: Yes 6. CARDIOVASCULAR/Heart Normal: Yes 7. MUSCULARSKELETAL Normal: Yes 8. GASTROINTESTINAL SYSTEM (ABDOMEN) Normal: Yes Liver enzymes >3 times upper limit of normal? No Viral Hepatitis No Function test of Unclear Etiology No 9. GENITOURINARY Normal: Yes Hx GFR less than 45 ml/min/1/73 m? No 10. UROGENITAL RENAL SYSTEM Normal: Yes 11. ENDOCRINE/METABOLIC SYSTEM Normal: Yes Hx How long been diabetic? 2014 Hx of DKA? No Emergency or Hospitalization for DKA? No Hx Use of pump for treatment? No Hx Treatment with steroids (medication related diabetes) No 12. NEUROLOGICAL SYSTEM Normal: Yes 13. HEMOTAPOIETIC/LYMPHATIC SYSTEM Normal: Yes 14. PSYCHOLOGICAL MENTAL HEALTH Normal: Yes Hx: Hx Cognitive Impairment or Dementia? No Hx: Antipsychotics (medication related diabetes?) No 15. OTHER Life threatening event within last 30 days, planned major surgery, or other unstable condition? No Active malignancy: No HIV No 16. Currently participating in other research study, such as [id number]: prospective Validation of Predictive Tool Study through Department of Endocrinology. No 17. Allergies and Intolerances: (see table below) ALLERGIES Allergen Reactions - Aspirin Hives, GI Upset - Paper Tape [Other] Rash, Swelling, Itching Area gets very red also - Penicillins Hives - Tramadol Other: See Comments Tachycardia Steroid use: No Congestive Heart Failure: No Myocardial infarction: No Coronary Artery disease: No Angina: No CABG: No Cardiac stent: No Hypertension: No Peripheral Vascular disease: No Cerebral vascular Accident: No Viral Hepatitis: No Elevated Liver enzymes: No Abnormal GFR: No History of DKA: No Cognitive Impairment/Dementia: No Did patient complete the 4 Quality of Life Questionnaire: [id number] : Yes Score: 40 SPADE : Yes Score: 69 PhQ-9 : Yes Score: 6 Medical Symptom Questionairre: : Yes Score: 27 Weight, (BMI), B/P, HR, - measured. BP 116/77 (BP Site: Left Arm, BP Position: Sitting, BP Cuff Size: Large Adult) Pulse 118 Temp 37 ?C (98.6 ?F) (Oral) Ht 168.8 cm (5' 6.46) Wt 128.9 kg (284 lb 3.2 oz) BMI 45.24 kg/m? Was physical exam completed: Yes, Dr. Dill Bioelectrical Impedance Analysis completed: Yes ISSA completed time and date: 1202 Resistance: 470.3 ohms Reactance: 52.6 ohms Labs completed: HbA1c, CMP, CBC,HCG, Glutamate decaroxylate antibody, C-peptide, NMR lipids, C-reactive, Vitamin D3, sed rate, isoprostane F2, Homocysteine plasma, Yes Time/date of Blood draw: 04/14/18 Biorepository collected and taken to U for processing and storage: N/A Encounter Note: Peewee Guzamn RN CNNURSE Observed: 04/14/2018 Status: COMPLETED Source: [place] 10:30 AM [facility] MAIN [place] REPOSITORY Nurse Visit (ENDOMN) MIRZA DAIGLE ([id number]) 1990 F Date Time Provider Department 04/14/18 10:30 AM PEEWEE GUZMAN (RN) ENDOMN During your visit today, we recorded the following information about you: Temperature Pulse Blood pressure Weight 98.6 degrees 118/minute 116/77 128.9 kg Height 1.688 m Peewee Guzman RN, RN 04/16/2018 12:49 PM Signed IRB: [id number] Study Title: Assessment of Diabetes Control, Cost of Care, and Quality of Life Utilizing a Functional Medicine Approach in Addition to Usual Care vs. Usual Care PI: Jaida Dill M.D. ([phone]) Nurse Research Coordinator: Peewee Guzman RN ([phone]) Research Coordinator: Jatin Conner After hours phone contact #: Call [phone] or and ask for the Endocrinology Physician on-call Patient here today for the Screen Visit/Baseline Visit Patient identified by name and date. Study of : Subject Screening ID # [id number] Subject Initials: ANT Consent: Version: 7 Version Date: 02/20/18 The above mentioned patient was informed of the risks/benefits and alternatives to participation (not to participate) as outlined in the informed consent document and the patient voluntarily agrees to participate in the Study IRB # [id number]. The patient has read and verbalizes understanding of the consent document. All questions have been answered.The above mentioned patient voluntarily signed the informed consent document. All study procedures started after the above mentioned patient signed the Informed Consent document. The study was explained and reviewed at length with the patient. All risks, benefits, and alternatives of the study were explained and reviewed with the patient. Study related procedures and follow-up were discussed. The consent form was given to the patient to read. All of the patient's study related questions were answered. The patient expressed full understanding of the study, and stated she would like to participate. The patient and I both signed and dated the most recently approved consent form. A copy of the signed consent form was then given to the patient for her own records and reference. The original copy of the consent form will be kept on file. Study specific education was given. I provided the patient with all of my contact information should she have any other questions and/or concerns. Date and time of consent:: 04/14/18 1115AM Inclusion/Exclusion review: Yes Consent to biorepository: No Monthly Telephone Assessments: Remind patient of importance of monthly telephone assessments: Yes Remind patient to return phone call if voicemail left: Yes Verify patient home address: Yes Parking voucher provided to patient: Yes Best way to contact/reach patient: Telephone The above mentioned patient received a copy of the informed consent document. Yes Verified current Address and email in [employer]. Women only questions: Female Have you been in the past year? Yes, Miscarried at 12 weeks in 09/2017. Current Outpatient Prescriptions on File Prior to Visit: 1.pantoprazole DR (PROTONIX) 40 mg tablet Take 1 tablet by mouth once daily. blood sugar diagnostic (FREESTYLE LITE STRIPS) test strip Use as directed 4 times daily. 2. metFORMIN ER (GLUCOPHAGE XR) 500 mg 24 hr tablet TAKE TWO TABLETS BY MOUTH WITH BREAKFAST AND TWO TABLETS WITH SUPPER 3. liraglutide (VICTOZA 2-WILLIAM) 0.6 mg/0.1 mL (18 mg/3 mL) pnij Inject 1.2 mg subcutaneously once daily. 4. insulin glargine (BASAGLAR KWIKPEN U-100 INSULIN) 100 unit/mL (3 mL) inpn Inject 40 Units subcutaneously daily at bedtime. No current facility-administered medications on file prior to visit. Review supplements and medication currently using: Yes Insulin Dose In units: 40 units daily BASAGLAR Total medication number including Diabetic medications : 4 How many antihypertensive's: No How many antihyperlipidemia: No Is subject taking hormone replacement Meds? No Is subject taking thyroid Hormone replacement Therapy? No Diabetes medication number: 3 In the past 6 months has patient self reported hypoglycemia episodes? No In the past 6 months hypoglycemia episodes confirmed by glucometer readings? No In the past 6 months any ED visits or hospitalizations for hypoglycemia? No Demographics: Female, White, Non Hispanice History - medical/surgical reviewed and discussed with patient. -Obesity -Type 2 Diabetes -Congenital Right hip dysplasia Note: significant Surgical history: Yes, See below -4 C-sections (2006, 2012, 2013, 2014) -6 R Hip Surgeries (last hip surgery 2006, can't recall previous surgery years). -Cholecystectomy (2006) -Right salpingo-oophrectomy (2014) -Tonsils and Adenoid removed as child (unsure of year/age) Normal or abnormal Dr. Dill also noted tremor on Physical Exam 1. General Appearance: Normal: Yes 2. Neck (including Thyroid): Normal: No, Abnormal--Goiter 3. Skin/Dermatologic Normal: Yes 4. HEENT (Head, ears, eyes ,nose, throat) Normal: Yes 5. RESPIRATORY (Lungs) History of steroid use) Normal: Yes 6. CARDIOVASCULAR/Heart Normal: Yes 7. MUSCULARSKELETAL Normal: Yes 8. GASTROINTESTINAL SYSTEM (ABDOMEN) Normal: Yes Liver enzymes >3 times upper limit of normal? No Viral Hepatitis No Function test of Unclear Etiology No 9. GENITOURINARY Normal: Yes Hx GFR less than 45 ml/min/1/73 m? No 10. UROGENITAL RENAL SYSTEM Normal: Yes 11. ENDOCRINE/METABOLIC SYSTEM Normal: Yes Hx How long been diabetic? 2014 Hx of DKA? No Emergency or Hospitalization for DKA? No Hx Use of pump for treatment? No Hx Treatment with steroids (medication related diabetes) No 12. NEUROLOGICAL SYSTEM Normal: Yes 13. HEMOTAPOIETIC/LYMPHATIC SYSTEM Normal: Yes 14. PSYCHOLOGICAL MENTAL HEALTH Normal: Yes Hx: Hx Cognitive Impairment or Dementia? No Hx: Antipsychotics (medication related diabetes?) No 15. OTHER Life threatening event within last 30 days, planned major surgery, or other unstable condition? No Active malignancy: No HIV No 16. Currently participating in other research study, such as [id number]: prospective Validation of Predictive Tool Study through Department of Endocrinology. No 17. Allergies and Intolerances: (see table below) ALLERGIES Allergen Reactions - Aspirin Hives, GI Upset - Paper Tape [Other] Rash, Swelling, Itching Area gets very red also - Penicillins Hives - Tramadol Other: See Comments Tachycardia Steroid use: No Congestive Heart Failure: No Myocardial infarction: No Coronary Artery disease: No Angina: No CABG: No Cardiac stent: No Hypertension: No Peripheral Vascular disease: No Cerebral vascular Accident: No Viral Hepatitis: No Elevated Liver enzymes: No Abnormal GFR: No History of DKA: No Cognitive Impairment/Dementia: No Did patient complete the 4 Quality of Life Questionnaire: [id number] : Yes Score: 40 SPADE : Yes Score: 69 PhQ-9 : Yes Score: 6 Medical Symptom Questionairre: : Yes Score: 27 Weight, (BMI), B/P, HR, - measured. BP 116/77 (BP Site: Left Arm, BP Position: Sitting, BP Cuff Size: Large Adult) Pulse 118 Temp 37 ?C (98.6 ?F) (Oral) Ht 168.8 cm (5' 6.46) Wt 128.9 kg (284 lb 3.2 oz) BMI 45.24 kg/m? Was physical exam completed: Yes, Dr. Dill Bioelectrical Impedance Analysis completed: Yes ISSA completed time and date: 1202 Resistance: 470.3 ohms Reactance: 52.6 ohms Labs completed: HbA1c, CMP, CBC,HCG, Glutamate decaroxylate antibody, C-peptide, NMR lipids, C-reactive, Vitamin D3, sed rate, isoprostane F2, Homocysteine plasma, Yes Time/date of Blood draw: 04/14/18 Biorepository collected and taken to [facility] for processing and storage: N/A Encounter Note: Peewee Guzman RN Referring Provider: JAIDA DILL [[id number]] Allergies As of Date: 04/14/2018 Noted Allergy Reaction ASPIRIN 09/18/2005 4 - Hives 8 - GI Upset paper tape [Other] 06/26/2005 2 - Rash 7 - Swelling 9 - Itching Comments: Area gets very red also PENICILLINS 05/11/2013 4 - Hives TRAMADOL 04/14/2018 14 - Other: See Comments Comments: Tachycardia Date Reviewed: 04/14/2018 Reviewed by: Peewee (Rn) RONIT Guzman - Fully Assessed Primary Visit Diagnosis:Examination of participant or control in clinical research [Z00.6] Prescriptions as of 04/14/2018 Sig: PANTOPRAZOLE 40 MG TABLET,DEL* Take 1 tablet by mouth once d* BLOOD SUGAR DIAGNOSTIC STRIPS Use as directed 4 times daily. METFORMIN ER 500 MG TABLET,EX* TAKE TWO TABLETS BY MOUTH WIT* LIRAGLUTIDE 0.6 MG/0.1 ML (18* Inject 1.2 mg subcutaneously * INSULIN GLARGINE (U-100) 100 * Inject 40 Units subcutaneousl* ALCOHOL SWABS Use as directed up to 5 times* EMPTY CONTAINER 1 Can twice daily. PEN NEEDLE, DIABETIC 31 GAUGE* One daily with insulin COMPOUNDED PRESCRIPTION 1 Each as needed. Sharps Cont* EMPTY CONTAINER 1 Container as needed (to dis* LANCETS Use as instructed MELOXICAM 15 MG TABLET Take 1 tablet by mouth once d* COMPOUNDED PRESCRIPTION One Touch meter kit. LANCETS Test blood sugar(s) 5 times * FAMOTIDINE 20 MG TABLET Take 1 tablet by mouth daily * Problem List As Of Date 04/14/2018 Noted Resolved Type 2 diabetes mellitus (HCC) [E11.9] INVALID FOR* More... More... More... Obesity, unspecified [E66.9] INVALID FOR* More... History of flank pain [Z87.898] INVALID FOR*06/21/2014 More... More... More... History of depression [Z86.59] INVALID FOR* More... More... More... More... More... More... More... Depression [F32.9] INVALID FOR* Pain in right hip [M25.551] INVALID FOR* More... Chronic pain of right hip [M25.551, G89.29] INVALID FOR* More... Encounter Status:Closed by PEEWEE GUZMAN on 04/16/18 PROGRESS Observed: 03/31/2018 Status: COMPLETED Source: [place] 2:21 PM [facility] MAIN [place] REPOSITORY [facility] ID: [id number] Author: Jeannette Olmstead [facility] Service: (none) Author Type: Registered Nurse Type: Progress Notes Filed: 04/26/2018 12:08 PM Note Text: PRIMARY CARE COORDINATION FOLLOW-UP NOTE Provider Action/FYI: Poss PT consult for strengthening of hip, abd muscles. Pt wants water therapy. Orders for cane (fax to [employer]) - Aquatherapy- fax to [facility]. Patient identified by name and date of . YES Spoke to patient Summary: Pt contacted me C/O falling 3 times yesterday and now in pain, crying when have to get out of bed. It has been recc by Ortho that she use a cane for support and help. I wonder if PT might not help her. She has appt with [facility] soon and is in a clinical trial at [facility]. Concerns: Mirza Daigle is a 28 year old female who reports glucose readings as noted. Meal # 1 = Breakfast or first meal of day, Meal # 2 = Lunch, # 3 = Evening meal DATE 03/31 03/30 03/29 03/28 03/27 03/26 03/25 Fasting 60 88 83 84 98 101 82 Post Meal #1 74 135 112 109 113 130 113 Before Meal Post Meal # 2 115 97 122 127 127 110 Before Meal Post Meal # 3 213 152 144 186 183 174 Bedtime Other Any low blood sugars during this period of reporting Yes, this morning fasting. Asymptomatic. BSs are surprisingly good. Doesn't have a scale so does not weigh herself. [employer] plan for next outreach: [facility] Jeannette Bill RN Ambulatory Postpartum Rn Internal Medicine [facility] March 31, 2018 LAITOUTRARACELICH Observed: 03/31/2018 Status: COMPLETED Source: [place] 12:[address] [facility] REPOSITORY Patient Outreach (INTMWS) MIRZA DAIGLE ([id number]) 1990 F Date Time Provider Department 03/31/18 JENANETTE BUSBY During your visit today, we recorded the following information about you: Jeannette Olmstead RN 04/26/2018 12:08 PM Signed PRIMARY CARE COORDINATION FOLLOW-UP NOTE Provider Action/FYI: Poss PT consult for strengthening of hip, abd muscles. Pt wants water therapy. Orders for cane (fax to [employer]) - Aquatherapy- fax to [facility]. Patient identified by name and date of . YES Spoke to patient Summary: Pt contacted me C/O falling 3 times yesterday and now in pain, crying when have to get out of bed. It has been recc by Ortho that she use a cane for support and help. I wonder if PT might not help her. She has appt with [facility] soon and is in a clinical trial at [facility]. Concerns: Mirza Daigle is a 28 year old female who reports glucose readings as noted. Meal # 1 = Breakfast or first meal of day, Meal # 2 = Lunch, # 3 = Evening meal DATE 03/31 03/30 03/29 03/28 03/27 03/26 03/25 Fasting 60 88 83 84 98 101 82 Post Meal #1 74 135 112 109 113 130 113 Before Meal Post Meal # 2 115 97 122 127 127 110 Before Meal Post Meal # 3 213 152 144 186 183 174 Bedtime Other Any low blood sugars during this period of reporting Yes, this morning fasting. Asymptomatic. BSs are surprisingly good. Doesn't have a scale so does not weigh herself. [employer] plan for next outreach: Will follow up at appt Signature Jeannette Bill RN Ambulatory Postpartum Rn Internal Medicine [facility] March 31, 2018 Allergies As of Date: 03/31/2018 Noted Allergy Reaction ASPIRIN 09/18/2005 4 - Hives 8 - GI Upset paper tape [Other] 06/26/2005 2 - Rash 7 - Swelling 9 - Itching Comments: Area gets very red also PENICILLINS 05/11/2013 4 - Hives Date Reviewed: 03/12/2018 Reviewed by: Sonam Barney MD - Fully Assessed Reason for Visit: Postpartum Rn Chronic Care [1982] Primary Visit Diagnosis:Acute right hip pain [M25.551] Other Visit Diagnoses:Osteoarthritis resulting from hip dysplasia on one side [M16.30] Obesity, Class III, BMI 40-49.9 (morbid obesity) ([facility]) [E66.01] Frequent falls [R29.6] Order(s):CONSULT TO NON-CCF FACILITY [2118840] Order #: [id number] CANE, ADJUSTABLE [[id number]] Order #: [id number] Prescriptions as of 03/31/2018 Sig: MELOXICAM 15 MG TABLET Take 1 tablet by mouth once d* PANTOPRAZOLE 40 MG TABLET,DEL* Take 1 tablet by mouth once d* BLOOD SUGAR DIAGNOSTIC STRIPS Use as directed 4 times daily. METFORMIN ER 500 MG TABLET,EX* TAKE TWO TABLETS BY MOUTH WIT* INSULIN GLARGINE (U-100) 100 * Inject 40 Units subcutaneousl* X LIRAGLUTIDE 0.6 MG/0.1 ML (18* Inject 1.2 mg subcutaneously * COMPOUNDED PRESCRIPTION One Touch meter kit. LANCETS Test blood sugar(s) 5 times * FAMOTIDINE 20 MG TABLET Take 1 tablet by mouth daily * ALCOHOL SWABS Use as directed up to 5 times* EMPTY CONTAINER 1 Can twice daily. X PEN NEEDLE, DIABETIC 31 GAUGE* One daily with insulin COMPOUNDED PRESCRIPTION 1 Each as needed. Sharps Cont* EMPTY CONTAINER 1 Container as needed (to dis* LANCETS Use as instructed Problem List As Of Date 03/31/2018 Noted Resolved Type 2 diabetes mellitus (HCC) [E11.9] INVALID FOR* More... More... More... Obesity, unspecified [E66.9] INVALID FOR* More... History of flank pain [Z87.898] INVALID FOR*06/21/2014 More... More... More... History of depression [Z86.59] INVALID FOR* More... More... More... More... More... More... More... Depression [F32.9] INVALID FOR* Pain in right hip [M25.551] INVALID FOR* More... Chronic pain of right hip [M25.551, G89.29] INVALID FOR* More... Encounter Status:Closed by JEANNETTE BILL on 04/26/18 PROGRESS Observed: 03/18/2018 Status: COMPLETED Source: [place] 1:[address] [facility] REPOSITORY [facility] ID: [id number] Author: Jeannette iBll Service: (none) Author Type: Registered Nurse Type: Progress Notes Filed: 03/31/2018 1:42 PM Note Text: PRIMARY CARE COORDINATION FOLLOW-UP NOTE Provider Action/FYI Pt saw Dr. Barney and needs to lose weight and gain better diabetic control before he will consider surgery. [facility] file order for [facility]. Patient identified by name and date of . YES Spoke to patient Summary: Pt was seen by yesterday with her complaint of hip pain. He agrees that the only real solution is a THR but with her current weight and diabetes uncontrolled, she is too poor a candidate for it at this time. Pt states he wants her to lose 10-15# minimum. Nothing in his notes, but my guess is that he wants her down to no more than 220. She has F/U in Jun with him. She states she doesn't drink pop, or eat pizza at all. States she only ate 1/2 bagel this am and ONE hard shell taco at [employer] for lunch. Concerns: Pt needs to lose weight prior to poss surgery. She states ,perhaps due to stress, she is throwing up a lot of what she eats or it makes her sick.. Looks like she may have lost 10# per her graph. MUCH encouragement given. Appt scheduled with [facility] for DM med management. Will schedule with Anusha again to see if she can help with weight mgmt. [employer] plan for next outreach: Will follow up at [facility] with Miriam. Signature Jeannette Bill RN Ambulatory Postpartum Rn Internal Medicine [facility] March 18, 2018 JUNAID Observed: 03/18/2018 Status: COMPLETED Source: [place] 12:[address] [facility] REPOSITORY Patient Outreach (INTMWS) MIRZA DAIGLE ([id number]) 1990 F Date Time Provider Department 03/18/18 JEANNETTE BUSBY During your visit today, we recorded the following information about you: Jeannette Olmstead RN 03/31/2018 1:42 PM Signed PRIMARY CARE COORDINATION FOLLOW-UP NOTE Provider Action/FYI Pt saw Dr. Barney and needs to lose weight and gain better diabetic control before he will consider surgery. Pls file order for [facility]. Patient identified by name and date of . YES Spoke to patient Summary: Pt was seen by yesterday with her complaint of hip pain. He agrees that the only real solution is a THR but with her current weight and diabetes uncontrolled, she is too poor a candidate for it at this time. Pt states he wants her to lose 10-15# minimum. Nothing in his notes, but my guess is that he wants her down to no more than 220. She has F/U in Jun with him. She states she doesn't drink pop, or eat pizza at all. States she only ate 1/2 bagel this am and ONE hard shell taco at [employer] for lunch. Concerns: Pt needs to lose weight prior to poss surgery. She states ,perhaps due to stress, she is throwing up a lot of what she eats or it makes her sick.. Looks like she may have lost 10# per her graph. MUCH encouragement given. Appt scheduled with [facility] for DM med management. Will schedule with Anusha again to see if she can help with weight mgmt. [employer] plan for next outreach: Will follow up at [facility] with Miriam. Josie Bill RN Ambulatory Postpartum Rn Internal Medicine [facility] March 18, 2018 Allergies As of Date: 03/18/2018 Noted Allergy Reaction ASPIRIN 09/18/2005 4 - Hives 8 - GI Upset paper tape [Other] 06/26/2005 2 - Rash 7 - Swelling 9 - Itching Comments: Area gets very red also PENICILLINS 05/11/2013 4 - Hives Date Reviewed: 03/12/2018 Reviewed by: Sonam Barney MD - Fully Assessed Reason for Visit: Postpartum Rn Chronic Care [0333] Primary Visit Diagnosis:Diabetes mellitus type 2, uncontrolled, without complications (HCC) [E11.65] Order(s):CONSULT TO AMBULATORY CLINIC PHARMACY [351311] Order #: [id number]: 1 Prescriptions as of 03/18/2018 Sig: MELOXICAM 15 MG TABLET Take 1 tablet by mouth once d* PANTOPRAZOLE 40 MG TABLET,DEL* Take 1 tablet by mouth once d* Patient not taking: Reported on 01/13/2018 BLOOD SUGAR DIAGNOSTIC STRIPS Use as directed 4 times daily. METFORMIN ER 500 MG TABLET,EX* TAKE TWO TABLETS BY MOUTH WIT* LIRAGLUTIDE 0.6 MG/0.1 ML (18* Inject 1.2 mg subcutaneously * INSULIN GLARGINE (U-100) 100 * Inject 40 Units subcutaneousl* COMPOUNDED PRESCRIPTION One Touch meter kit. LANCETS Test blood sugar(s) 5 times * FAMOTIDINE 20 MG TABLET Take 1 tablet by mouth daily * ALCOHOL SWABS Use as directed up to 5 times* EMPTY CONTAINER 1 Can twice daily. PEN NEEDLE, DIABETIC 31 GAUGE* One daily with insulin COMPOUNDED PRESCRIPTION 1 Each as needed. Sharps Cont* EMPTY CONTAINER 1 Container as needed (to dis* LANCETS Use as instructed Problem List As Of Date 03/18/2018 Noted Resolved Type 2 diabetes mellitus (HCC) [E11.9] INVALID FOR* More... More... More... Obesity, unspecified [E66.9] INVALID FOR* More... History of flank pain [Z87.898] INVALID FOR*06/21/2014 More... More... More... History of depression [Z86.59] INVALID FOR* More... More... More... More... More... More... More... Depression [F32.9] INVALID FOR* Pain in right hip [M25.551] INVALID FOR* More... Chronic pain of right hip [M25.551, G89.29] INVALID FOR* More... Encounter Status:Closed by JEANNETTE BILL on 03/31/18 MARY CARMEN Observed: 03/12/2018 Status: COMPLETED Source: [place] 8:[address] [facility] REPOSITORY Office Visit (ELIZABETH) MIRZA DAIGLE ([id number]) 1990 F Date Time Provider Department 03/12/18 8:20 AM SONAM BARNEY During your visit today, we recorded the following information about you: Weight Height 127.2 kg 1.702 m Sonam Barney MD, 03/12/2018 1:13 PM Signed CONSULT ORTHOPAEDIC: HIP PRIMARY CARE PHYSICIAN: SUNNY WELLS MD REFERRING PROVIDER: Kip Luevano MD [address] [facility] [id number] ASSESSMENT AND PLAN: Impression: Right hip secondary arthritis/proximal femoral deformity. Prior SCFE with subsequent proximal femoral osteotomy We discussed the clinical and radiographic findings in detail. This is a challenging problem with her proximal femoral deformity. She has severe and intolerable symptoms, has failed all reasonable nonsurgical treatment. Ultimately I do not think that a hip preserving procedure will likely give long-standing benefit, and her best reconstructive option is a hip replacement. We discussed the particular difficulties and increased risks in her situation. Unfortunately, at her current weight and poorly controlled diabetes her infection risk is prohibitively high. Further optimization of her risk factors as needed to decrease her perioperative risk. I placed a nutrition consult for weight reduction, referral to endocrinology for optimization of her diabetes. Follow-up in 3-4 months with new hemoglobin A1c prior to visit for further discussion. ACTIVE PROBLEM LIST Type 2 diabetes mellitus (HCC) Obesity, Unspecified History of Depression Depression Pain in Right Hip Chronic Pain of Right Hip SUBJECTIVE CHIEF COMPLAINT: Hip Pain HPI: In today for right hip pain -states she has been diagnosed with Hip dysplasia and has had 6 surgeries over the years. She had a IA hip injection to the right on 03/06 with no relief. States she felt she had an allergic reaction as she woke up sweating and in more pain from the injection. States the injection did not work at all for her Mirza Daigle is a 28 year old female here for evaluation and management of Right hip pain. She has had progressive problems with the hip(s) constantly over the past 10 month(s) interfering with activities which include walking, rising from a sitting position, standing for prolonged periods of time, getting in and out of a car and climbing stairs. The problem began limiting activities 7-12 months ago. Currently the pain in the joint is rated at 10 out of 10 with moderate activity. The pain is constant and is located in the right buttocks, groin and outer aspect of the hip. The pain is described as sharp. Relieving factors include no relieving factors. There is no specific incident that brought about this pain. She also complains of numbness, popping and States numbness radiates to the knee and she falls. FUNCTIONAL STATUS: Walk a block or two on level ground (2.75 METs) Preoperative Ambulatory Status: Independent Community Distances Number of Entry Steps: 2 Bedroom Location: First floor Bathroom Location: First floor Caregiver Assistance: Consistent/Live-In (5-7 days/wk) Home Location: [place] 150 [place] PREVIOUS TREATMENTS: Medical: RX NSAIDS for 3 Months or Greater (meloxicam (Mobic)), Steroid Injections Right Hip Physical Therapy: Activities Modified Previous Surgery: States she has had 6 surgeries for hip dysplasia (with rods and screws and marrow -no screws in place at this time) REVIEW OF SYSTEMS: GENERAL: Denies fever, chills malaise and weight loss.. PAIN ASSESSMENT: See HPI. HEENT: No recent change in vision or hearing.. CARDIOVASCULAR: Denies chest pain, history of A-fib, valvular disease, hypertension, CHF or pacemaker/ICD.. RESPIRATORY: Denies SOB, sputum production, dyspnea, COPD and hemoptysis.. GI: Denies inflammatory disease, ascites or liver disease. and + Stomach Ulcer. : Denies change in frequency or urgency, kidney disease, and burning with urination.. MUSCULOSKELETAL: See HPI. SKIN: Denies rash or itching.. PSYCHOLOGICAL: Denies uncontrolled depression or anxiety.. NEURO: Denies CVA, seizures, headaches.. ENDOCRINE: Positive for diabetes mellitus on insulin. HEMATOLOGY/LYMPHOLOGY: Denies cancer, bleeding or clotting disorders, anemia,and DVT's.. ALLERGIC/IMMUNOLOGICAL: Denies risks for infection, or recent MRSA infections. Surgical Risk Factors: Diabetes and Morbid Obesity PAST MEDICAL HISTORY Diagnosis Date - Anemia WITH 2ND - Asthma since 14 years old, inhaler PRN - Complex ovarian cyst - Needs follow up imaging 06/09/2013 06/09/2013 An ultrasound was done 06/04/2013 that revealed a 6w5d fetus with DELFINA of 01/24/14. There is fluid seen adjacent to the gestastional sac possible subchorionic hemorrhage. the left ovary is within normal limits but the right ovary contains a 3.8 x 3 x 3.3 cm moderately complex cyst. TKRN 01/15/2014 - Confirmed 9 x 7 x 2.5 cm multi-loculated cyst at the time of . Needs outpatient follow up via TVUS. - Congenital hip deformity right - Diabetes, gestational insulin controlled - Family history of defects 06/09/2013 06/09/2013Patient's mother born with spina bifida. Patient's brother born with a hole in his heart. Patient has another brother that was born with Down syndrome. Patient and her brother born with a congenital hip deformity. Patient has had multiple corrective surgeries for the hip deformity.TKRN - Family history of Down syndrome 06/21/2014 Brother with DS - Family history of spina bifida 06/21/2014 Mom with Spina bifida in wheelchair - Gall stones 2007 Gall bladder removed - History of asthma 06/09/2013 06/09/2013Patient has a history of asthma. She uses an albuterol inhaler when necessary. TKRN - History of 06/09/2013 06/09/2013 Pt had 3 previous C sections. - History of kidney stones - Nausea/vomiting in 06/09/2013 06/09/2013She states she has nausea . Advised patient to call/come in if she has persistent vomiting or if her blood sugars were less than 70. TKRN - Ovarian cyst during 07/21/2014 07/21/14: see NT ultrasound: Right ovarian cyst 6cm - Pain in joint, pelvic region and thigh 01/10/2006 - Pancreatitis - Patient requested diagnostic testing 06/09/2013 06/09/2013 Patient desires early screening in with sequential testing. TKRN - depression - Prior macrosomia, antepartum 06/21/2014 - Short interval between pregnancies complicating , antepartum 06/09/2013 06/09/2013Shguillermo delivered her previous child August 14, 2012.TKRN - Type 2 diabetes mellitus (HCC) 05/22/2013 - Type 2 diabetes mellitus complicating , antepartum 05/28/2013 06/09/2013She has a history of diabetes diagnosed 4 years ago. She was unaware that she was until she went into labor with her first . With her second she started insulin during the second trimester. She was referred to Dr. Tejada at [facility] for poorly controlled diabetes on metformin alone. She has since started insulin and has an appointment today with Dr. Guevara for followup. She has been keeping track of her blood sugars and presents with a journal today and these blood sugars are copy off and given to Dr. Guevara for his review. I have discussed with the patient the importance of good control of her blood sugars during and keeping a blood sugar log for review by the Doctor. She is reminded that she is to send her blood sugars in weekly to Dr. Guevara and she is to call sooner than a week if she has persistently high, greater the 180, or low blood sugars, less than 70. She is provided with a blood sugar log today. She has not had a diabetic foot or eye exam rece PAST SURGICAL HISTORY Procedure Laterality Date - DELIVERY ONLY , low transverse x3 - DELIVERY ONLY 01/19/15 , low transverse - IANDD ABSC; SMPL OR SGL 05/2013 cyst on left upper chest - LAPAROSCOPIC CHOLEYCYSTECTOMY Cholecystectomy, lap - PAST SURGICAL HISTORY OF tubes in ears per Dr Crockett at [facility] - PAST SURGICAL HISTORY OF Tonsils and Adenoids removed per Dr Crockett at [facility] - PAST SURGICAL HISTORY OF [address] Marroquin at [facility] and one by Dr. Camacho in [place] - REMOVAL OF OVARY/TUBE(S) 01/19/15 Salpingo-oophorectomy, right ovarian mass FAMILY HISTORY Problem Relation Age of Onset - Diabetes Mother - Hypertension Mother - other (spina bifida) Mother - Heart Father - Hypertension Father - Cancer Maternal Grandmother - Alcohol/Drug Maternal Grandmother - Heart Paternal Grandmother - Aneurysm Paternal Grandmother - Stroke Brother - other (Down Syndrome) Brother - other (autism) Brother step brother - seizures and cerebral palsy also - other (Open family hx of Neural Tube Defect) Brother Social History Marital status: Single Spouse name: Years of education: 10 Number of children: 2 Occupational History 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 X 10 days, then daily as needed with food. pantoprazole DR (PROTONIX) 40 mg tablet Take 1 tablet by mouth once daily. blood sugar diagnostic (FREESTYLE LITE STRIPS) test strip Use as directed 4 times daily. metFORMIN ER (GLUCOPHAGE XR) 500 mg 24 hr tablet TAKE TWO TABLETS BY MOUTH WITH BREAKFAST AND TWO TABLETS WITH SUPPER liraglutide (VICTOZA 2-WILLIAM) 0.6 mg/0.1 mL (18 mg/3 mL) pnij Inject 1.2 mg subcutaneously once daily. insulin glargine (BASAGLAR KWIKPEN U-100 INSULIN) 100 unit/mL (3 mL) inpn Inject 40 Units subcutaneously daily at bedtime. COMPOUNDED PRESCRIPTION One Touch meter kit. Lancets (ONETOUCH ULTRASOFT LANCETS) lancets Test blood sugar(s) 5 times daily. Dx: Type 2 DM - Controlled E11.9 , Insulin: yes famotidine (PEPCID) 20 mg tablet Take 1 tablet by mouth daily at bedtime. Alcohol Swabs padm Use as directed up to 5 times daily DM: yes Insulin: yes DX: E.11.9 Oral Medication Containers (SHARPS CONTAINER) misc 1 Can twice daily. insulin needles, DISPOSABLE, (PEN NEEDLE) 31 gauge x 5/16 ndle One daily with insulin COMPOUNDED PRESCRIPTION 1 Each as needed. Sharps Container. Dx:Diabetes mellitus, antepartum (648.03) Oral Medication Containers (BD SHARPS PRIVATE BANKER) misc 1 Container as needed (to disopse of insulin needles). Lancets (ONE TOUCH SURESOFT LANCING DEV) lancets Use as instructed PHYSICAL EXAM Ht 170.2 cm (5' 7) Wt 127 kg (280 lb) BMI 43.85 kg/m? The patient is well dressed and normal appearing. Normal mood and affect. No respiratory distress. Pulse is regular. Pedal pulses are palpable bilaterally. No peripheral edema or lymphadenopathy. Negative seated straight leg raise bilaterally. Good psoas, quadriceps, dorsi-and plantar-flexion strength bilaterally. Distal sensation is intact throughout. Skin is intact without lesions about both lower extremities. Gait evaluation reveals a severe limp. Leg length discrepancy of 15 mm, R < L. Previous scars: Extended lateral and smaller anterolateral incisions well-healed without sign of infection. Holds right lower extremity and externally rotated posture. Conserably more external rotation than internal. Right hip motion is reduced and causes pain. FADIR, YONG, and Stinchfield tests do reproduce the characteristic groin pain. Tenderness to palpation: Minimal over the lateral aspect of the greater trochanter. left hip examination is normal, with painless unrestricted range of motion. No pain with FADIR, YONG, or Stinchfield tests. Tenderness to palpation: None. DATA: Diagnostic tests reviewed for today's visit: Right hip x-ray was personally reviewed with the patient. Prior evidence of proximal femoral osteotomy with subsequent hardware removal. Mild joint space narrowing. Irregularity of the femoral head. 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] Other Visit Diagnoses:Class 3 severe obesity due to excess calories with serious comorbidity and body mass index (BMI) of 45.0 to 49.9 in adult ([facility]) [E66.01, Z68.42] Type 2 diabetes mellitus without complication, with long-term current use of insulin ([facility]) [E11.9, Z79.4] Order(s):CONSULT TO ENDOCRINOLOGY [9007] Order #: [id number]: 1 CONSULT TO NUTRITION THERAPY [9020] Order #: [id number]: 1 Prescriptions as of 03/12/2018 Sig: MELOXICAM 15 MG TABLET Take 1 tablet by mouth once d* PANTOPRAZOLE 40 MG TABLET,DEL* Take 1 tablet by mouth once d* Patient not taking: Reported on 01/13/2018 BLOOD SUGAR DIAGNOSTIC STRIPS Use as directed 4 times daily. METFORMIN ER 500 MG TABLET,EX* TAKE TWO TABLETS BY MOUTH WIT* LIRAGLUTIDE 0.6 MG/0.1 ML (18* Inject 1.2 mg subcutaneously * INSULIN GLARGINE (U-100) 100 * Inject 40 Units subcutaneousl* COMPOUNDED PRESCRIPTION One Touch meter kit. LANCETS Test blood sugar(s) 5 times * FAMOTIDINE 20 MG TABLET Take 1 tablet by mouth daily * ALCOHOL SWABS Use as directed up to 5 times* EMPTY CONTAINER 1 Can twice daily. PEN NEEDLE, DIABETIC 31 GAUGE* One daily with insulin COMPOUNDED PRESCRIPTION 1 Each as needed. Sharps Cont* EMPTY CONTAINER 1 Container as needed (to dis* LANCETS Use as instructed Problem List As Of Date 03/12/2018 Noted Resolved Type 2 diabetes mellitus (HCC) [E11.9] INVALID FOR* More... More... More... Obesity, unspecified [E66.9] INVALID FOR* More... History of flank pain [Z87.898] INVALID FOR*06/21/2014 More... More... More... History of depression [Z86.59] INVALID FOR* More... More... More... More... More... More... More... Depression [F32.9] INVALID FOR* Pain in right hip [M25.551] INVALID FOR* More... Chronic pain of right hip [M25.551, G89.29] INVALID FOR* More... Follow-up and Disposition History Recorded Encounter Status:Closed by SONAM BARNEY MD on 03/12/18 PROGRESS Observed: 03/12/2018 Status: COMPLETED Source: [place] 8:[address] [facility] REPOSITORY [facility] ID: [id number] Author: Sonam Barney MD Service: (none) Author Type: Physician Type: Progress Notes Filed: 03/12/2018 1:13 PM Note Text: CONSULT ORTHOPAEDIC: HIP PRIMARY CARE PHYSICIAN: SUNNY WELLS MD REFERRING PROVIDER: Kip Luevano MD [address] [facility] [id number] ASSESSMENT AND PLAN: Impression: Right hip secondary arthritis/proximal femoral deformity. Prior SCFE with subsequent proximal femoral osteotomy We discussed the clinical and radiographic findings in detail. This is a challenging problem with her proximal femoral deformity. She has severe and intolerable symptoms, has failed all reasonable nonsurgical treatment. Ultimately I do not think that a hip preserving procedure will likely give long-standing benefit, and her best reconstructive option is a hip replacement. We discussed the particular difficulties and increased risks in her situation. Unfortunately, at her current weight and poorly controlled diabetes her infection risk is prohibitively high. Further optimization of her risk factors as needed to decrease her perioperative risk. I placed a nutrition consult for weight reduction, referral to endocrinology for optimization of her diabetes. Follow-up in 3-4 months with new hemoglobin A1c prior to visit for further discussion. ACTIVE PROBLEM LIST Type 2 diabetes mellitus (HCC) Obesity, Unspecified History of Depression Depression Pain in Right Hip Chronic Pain of Right Hip SUBJECTIVE CHIEF COMPLAINT: Hip Pain HPI: In today for right hip pain -states she has been diagnosed with Hip dysplasia and has had 6 surgeries over the years. She had a IA hip injection to the right on 03/06 with no relief. States she felt she had an allergic reaction as she woke up sweating and in more pain from the injection. States the injection did not work at all for her Mirza Daigle is a 28 year old female here for evaluation and management of Right hip pain. She has had progressive problems with the hip(s) constantly over the past 10 month(s) interfering with activities which include walking, rising from a sitting position, standing for prolonged periods of time, getting in and out of a car and climbing stairs. The problem began limiting activities 7-12 months ago. Currently the pain in the joint is rated at 10 out of 10 with moderate activity. The pain is constant and is located in the right buttocks, groin and outer aspect of the hip. The pain is described as sharp. Relieving factors include no relieving factors. There is no specific incident that brought about this pain. She also complains of numbness, popping and States numbness radiates to the knee and she falls. FUNCTIONAL STATUS: Walk a block or two on level ground (2.75 METs) Preoperative Ambulatory Status: Independent Community Distances Number of Entry Steps: 2 Bedroom Location: First floor Bathroom Location: First floor Caregiver Assistance: Consistent/Live-In (5-7 days/wk) Home Location: [place] PREVIOUS TREATMENTS: Medical: RX NSAIDS for 3 Months or Greater (meloxicam (Mobic)), Steroid Injections Right Hip Physical Therapy: Activities Modified Previous Surgery: States she has had 6 surgeries for hip dysplasia (with rods and screws and marrow -no screws in place at this time) REVIEW OF SYSTEMS: GENERAL: Denies fever, chills malaise and weight loss.. PAIN ASSESSMENT: See HPI. HEENT: No recent change in vision or hearing.. CARDIOVASCULAR: Denies chest pain, history of A-fib, valvular disease, hypertension, CHF or pacemaker/ICD.. RESPIRATORY: Denies SOB, sputum production, dyspnea, COPD and hemoptysis.. GI: Denies inflammatory disease, ascites or liver disease. and + Stomach Ulcer. : Denies change in frequency or urgency, kidney disease, and burning with urination.. MUSCULOSKELETAL: See HPI. SKIN: Denies rash or itching.. PSYCHOLOGICAL: Denies uncontrolled depression or anxiety.. NEURO: Denies CVA, seizures, headaches.. ENDOCRINE: Positive for diabetes mellitus on insulin. HEMATOLOGY/LYMPHOLOGY: Denies cancer, bleeding or clotting disorders, anemia,and DVT's.. ALLERGIC/IMMUNOLOGICAL: Denies risks for infection, or recent MRSA infections. Surgical Risk Factors: Diabetes and Morbid Obesity PAST MEDICAL HISTORY Diagnosis Date - Anemia WITH 2ND - Asthma since 14 years old, inhaler PRN - Complex ovarian cyst - Needs follow up imaging 06/09/2013 06/09/2013 An ultrasound was done 06/04/2013 that revealed a 6w5d fetus with DELFINA of 01/24/14. There is fluid seen adjacent to the gestastional sac possible subchorionic hemorrhage. the left ovary is within normal limits but the right ovary contains a 3.8 x 3 x 3.3 cm moderately complex cyst. TKRN 01/15/2014 - Confirmed 9 x 7 x 2.5 cm multi-loculated cyst at the time of . Needs outpatient follow up via TVUS. - Congenital hip deformity right - Diabetes, gestational insulin controlled - Family history of defects 06/09/2013 06/09/2013Patient's mother born with spina bifida. Patient's brother born with a hole in his heart. Patient has another brother that was born with Down syndrome. Patient and her brother born with a congenital hip deformity. Patient has had multiple corrective surgeries for the hip deformity.TKRN - Family history of Down syndrome 06/21/2014 Brother with DS - Family history of spina bifida 06/21/2014 Mom with Spina bifida in wheelchair - Gall stones 2006 Gall bladder removed - History of asthma 06/09/2013 06/09/2013Patient has a history of asthma. She uses an albuterol inhaler when necessary. TKRN - History of 06/09/2013 06/09/2013 Pt had 3 previous C sections. - History of kidney stones - Nausea/vomiting in 06/09/2013 06/09/2013Nikki states she has nausea . Advised patient to call/come in if she has persistent vomiting or if her blood sugars were less than 70. TKRN - Ovarian cyst during 07/21/2014 07/21/14: see NT ultrasound: Right ovarian cyst 6cm - Pain in joint, pelvic region and thigh 01/10/2006 - Pancreatitis - Patient requested diagnostic testing 06/09/2013 06/09/2013 Patient desires early screening in with sequential testing. TKRN - depression - Prior macrosomia, antepartum 06/21/2014 - Short interval between pregnancies complicating , antepartum 06/09/2013 06/09/2013Nikki delivered her previous child August 14, 2012.TKRN - Type 2 diabetes mellitus (HCC) 05/22/2013 - Type 2 diabetes mellitus complicating , antepartum 05/28/2013 06/09/2013Nikki has a history of diabetes diagnosed 4 years ago. She was unaware that she was until she went into labor with her first . With her second she started insulin during the second trimester. She was referred to Dr. Tejada at [facility] for poorly controlled diabetes on metformin alone. She has since started insulin and has an appointment today with Dr. Guevara for followup. She has been keeping track of her blood sugars and presents with a journal today and these blood sugars are copy off and given to Dr. Guevara for his review. I have discussed with the patient the importance of good control of her blood sugars during and keeping a blood sugar log for review by the Doctor. She is reminded that she is to send her blood sugars in weekly to Dr. Guevara and she is to call sooner than a week if she has persistently high, greater the 180, or low blood sugars, less than 70. She is provided with a blood sugar log today. She has not had a diabetic foot or eye exam rece PAST SURGICAL HISTORY Procedure Laterality Date - DELIVERY ONLY , low transverse x3 - DELIVERY ONLY 01/19/15 , low transverse - IANDD ABSC; SMPL OR SGL 05/2013 cyst on left upper chest - LAPAROSCOPIC CHOLEYCYSTECTOMY Cholecystectomy, lap - PAST SURGICAL HISTORY OF tubes in ears per Dr Crockett at [facility] - PAST SURGICAL HISTORY OF Tonsils and Adenoids removed per Dr Crockett at [facility] - PAST SURGICAL HISTORY OF [address] Marroquin at [facility] and one by Dr. Camacho in [place] - REMOVAL OF OVARY/TUBE(S) 01/19/15 Salpingo-oophorectomy, right ovarian mass FAMILY HISTORY Problem Relation Age of Onset - Diabetes Mother - Hypertension Mother - other (spina bifida) Mother - Heart Father - Hypertension Father - Cancer Maternal Grandmother - Alcohol/Drug Maternal Grandmother - Heart Paternal Grandmother - Aneurysm Paternal Grandmother - Stroke Brother - other (Down Syndrome) Brother - other (autism) Brother step brother - seizures and cerebral palsy also - other (Open family hx of Neural Tube Defect) Brother Social History Marital status: Single Spouse name: Years of education: 10 Number of children: 2 Occupational History 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 X 10 days, then daily as needed with food. pantoprazole DR (PROTONIX) 40 mg tablet Take 1 tablet by mouth once daily. blood sugar diagnostic (FREESTYLE LITE STRIPS) test strip Use as directed 4 times daily. metFORMIN ER (GLUCOPHAGE XR) 500 mg 24 hr tablet TAKE TWO TABLETS BY MOUTH WITH BREAKFAST AND TWO TABLETS WITH SUPPER liraglutide (VICTOZA 2-WILLIAM) 0.6 mg/0.1 mL (18 mg/3 mL) pnij Inject 1.2 mg subcutaneously once daily. insulin glargine (BASAGLAR KWIKPEN U-100 INSULIN) 100 unit/mL (3 mL) inpn Inject 40 Units subcutaneously daily at bedtime. COMPOUNDED PRESCRIPTION One Touch meter kit. Lancets (ONETOUCH ULTRASOFT LANCETS) lancets Test blood sugar(s) 5 times daily. Dx: Type 2 DM - Controlled E11.9 , Insulin: yes famotidine (PEPCID) 20 mg tablet Take 1 tablet by mouth daily at bedtime. Alcohol Swabs padm Use as directed up to 5 times daily DM: yes Insulin: yes DX: E.11.9 Oral Medication Containers (SHARPS CONTAINER) misc 1 Can twice daily. insulin needles, DISPOSABLE, (PEN NEEDLE) 31 gauge x 5/16 ndle One daily with insulin COMPOUNDED PRESCRIPTION 1 Each as needed. Sharps Container. Dx:Diabetes mellitus, antepartum (648.03) Oral Medication Containers (BD SHARPS PRIVATE BANKER) misc 1 Container as needed (to disopse of insulin needles). Lancets (ONE TOUCH SURESOFT LANCING DEV) lancets Use as instructed PHYSICAL EXAM Ht 170.2 cm (5' 7) Wt 127 kg (280 lb) BMI 43.85 kg/m? The patient is well dressed and normal appearing. Normal mood and affect. No respiratory distress. Pulse is regular. Pedal pulses are palpable bilaterally. No peripheral edema or lymphadenopathy. Negative seated straight leg raise bilaterally. Good psoas, quadriceps, dorsi-and plantar-flexion strength bilaterally. Distal sensation is intact throughout. Skin is intact without lesions about both lower extremities. Gait evaluation reveals a severe limp. Leg length discrepancy of 15 mm, R < L. Previous scars: Extended lateral and smaller anterolateral incisions well-healed without sign of infection. Holds right lower extremity and externally rotated posture. Conserably more external rotation than internal. Right hip motion is reduced and causes pain. FADIR, YONG, and Stinchfield tests do reproduce the characteristic groin pain. Tenderness to palpation: Minimal over the lateral aspect of the greater trochanter. left hip examination is normal, with painless unrestricted range of motion. No pain with FADIR, YONG, or Stinchfield tests. Tenderness to palpation: None. DATA: Diagnostic tests reviewed for today's visit: Right hip x-ray was personally reviewed with the patient. Prior evidence of proximal femoral osteotomy with subsequent hardware removal. Mild joint space narrowing. Irregularity of the femoral head. SIGNATURE: Sonam Barney MD, MD PATIENT NAME: Mirza Daigle DATE: March 12, 2018 TIME: 8:05 AM [facility] Observed: 03/12/2018 Status: COMPLETED Source: [place] 12:00 AM [facility] REPOSITORY Letter Text Dear Jagboboziel Daigle: How to activate your [facility] [employer] Account 1. Visit the [employer] Signup page at [email or web address] 2. Identify yourself using your one-time use activation code: Not generated 3. Follow the on-screen prompts to choose your own secure username and password The following information will be necessary to access your account for the first time: Information needed for sign-up: Your custom activation code used one-time only for the initial account set-up. Your date of The last 4 digits of your social security number What to do next: Fill in the requested information on the Identify Yourself Form at [email or web address] , click Next. Create your login and password, choose a [employer] ID and password that will be easy for you to use, but impossible for anyone else to guess. Pick a security question that will assist you in the event you forget your password the next time you log-on. If you have difficulty activating your account, please call our [employer] helpline at [phone] or toll free at . We hope you enjoy using [employer]! Kindest Regards, [facility] [employer] Team XR HIP 3V PELV+ Observed: 03/11/2018 Status: F Source: [place] AP/LAT RT 1:35 PM [facility] MAIN CAMPUS REPOSITORY * * *Final Report* * * DATE OF EXAM: Mar 11 2018 1:35PM WRX [id number] - XR HIP 3V PELV+ AP/LAT RT / PROCEDURE REASON: Pain, unspecified * * * * Physician Interpretation * * * * HISTORY: Pain in joint that radiates distal to knee. pre- op for right hip surgery. Hx of Congenital hip deformity.. Pain, unspecified . TECHNIQUE: XR HIP 3V PELV+ AP/LAT RT Laterality: RIGHT Number of different views (projections): 5 COMPARISON: November 2017 RESULT: Left hip is unremarkable, no joint space narrowing or fracture. Remote deformity of the right proximal femur with prior surgery. This is unchanged since the prior study with minimal contour deformity of the femoral head. No significant joint space narrowing present. IMPRESSION: Remote right proximal femur deformity. Plastic Card Grader Cardroom: XIAO Transcribe Date/Time: Mar 12 2018 6:31A Dictated by : CAROLYN TREVINO MD This examination was interpreted and the report reviewed and electronically signed by: CAROLYN TREVINO MD on Mar 12 2018 6:32AM EST [id number] PROGRESS Observed: 03/11/2018 Status: COMPLETED Source: [place] 1:06 PM [facility] MAIN [place] REPOSITORY [facility] ID: [id number] Author: Meghna Gama Service: (none) Author Type: (none) Type: Progress Notes Filed: 03/11/2018 1:32 PM Note Text: Radiology Service Progress Note PATIENT NAME: Mirza Daigle DATE OF SERVICE: March 11, 2018 TIME: 1:06 PM PATIENT IDENTITY VERIFICATION COMPLETED USING TWO (2) METHODS: Patient confirmed name verbally and Date of . PATIENT GENDER DATA: Female. status: : No status: NO. PATIENT RELEVANT IMPLANT DATA REVIEWED: Not Applicable RADIOLOGY DEPARTMENT: General X-ray: Exam(s) Completed: Pelvis X-Ray: Pelvis with Hip Right PERIPHERAL IV DATA: Not applicable SIGNED BY: Meghna Gama March 11, 2018 1:06 PM DISCHARGE INSTRUCTION Observed: 03/08/2018 Status: F Source: [place] 3:57 PM [facility] Medical Records Department [address] [place] [id number] Discharge Instruction 03/08/18 1556 MR#: [id number] Acct: [id number] Name: MIRZA DAIGLE Rep #: [id number] : 1990 28 From: Sonu Garvey MD PCP: Sunny Wells MD Status: PRE ER ED Disposition - Plan for ED Patient: Disposition: Home or Assisted Living Chief Complaint: Shortness of Breath Instructions: ED Sciatica Prescriptions: Prednisone [Deltasone] 40 mg PO DAILY #10 tab Referrals: Sunny Wells MD [Primary Care Provider] - What to do if you have Problems For any increased pain, shortness of breath, bleeding, nausea or vomiting, chest pain, or any unexpected problems, contact your Primary Care Provider. Call [facility] ([phone]) or report to the closest Emergency Room. Call 911 if necessary. 03/08/18 1557 <Electronically signed by Sonu Garvey MD> Date Sonu Garvey MD Cosigner Signature (If Indicated): Date CC: Sunny Wells MD EMERGENCY DEPARTMENT Observed: 03/08/2018 Status: F Source: [place] SUMMARY 3:56 PM [facility] [place] [facility] Medical Records Department [address] [place] [address] Emergency Department Summary 03/08/18 1553 MR#: [id number] Acct: [id number] Name: MIRZA DAIGLE Rep #: [id number] : 1990 28 From: Sonu Garvey MD PCP: Sunny Wells MD Status: PRE ER - ER Visit Summary Date of Service: 03/08/18 Chief Complaint: Back pain, right hip pain, sore throat, shortness of breath History of Present Illness: The patient is a 28 F who presents with the above symptoms. Started 2 days ago. She states she had an injection of the right hip due to hip dysplasia. This is the first time she has never had this. It was done by Dr. Landa in [place]. She states she is not sure what medication was injected but it was likely an anti-inflammatory she says. Since then she has had pain in the back that radiates down to the toes on the right-hand side. She has no sciatica history. She feels like her throat is closing. She feels short of breath at times. She also sees red spots throughout her body. She has taken nothing for this at home except for some Tylenol. Physical Examination: Vital signs are reviewed. BMI 46. Female in no distress. HEENT exam unremarkable. Heart is tachycardic and regular rhythm without murmurs. Lungs are clear bilaterally. Abdomen soft nontender. She has diffuse lumbar spinal tenderness down into the right buttock. Extremities reveal no edema. Skin exam reveals no rashes that I can see. No evidence of urticaria. Her neurologic exam is normal. Test Results: None performed Emergency Department Course and Treatment: At this point I do not see any rashes on the patient's body. Her throat looks normal. Her lungs are clear. She may have an element of sciatica with the pain radiating down to the toes on the right- hand side and on the posterior right leg. I have low suspicion for an allergic reaction to the medications that she was given in the joint. The skin looks normal. She has been ambulatory. I have also low suspicion for hematoma caused by the injection. I will give the patient steroids that should help if the rash does persist as well as the sciatica. She will continue NSAIDs at home and she will follow-up with her primary care physician. Treatment Plan: [] Disposition: Discharge Impression: Sciatica This note was generated with [employer] dictation software. It may contain incorrect words, spelling, and punctuation that were not noted in review of the chart prior to signing ED Disposition - Plan for ED Patient: Chief Complaint: Shortness of Breath Referrals: Sunny Wells MD [Primary Care Provider] - What to do if you have Problems For any increased pain, shortness of breath, bleeding, nausea or vomiting, chest pain, or any unexpected problems, contact your Primary Care Provider. Call [employer] [facility] ([phone]) or report to the closest Emergency Room. Call 911 if necessary. 03/08/18 1556 <Electronically signed by Sonu Garvey MD> Date Sonu Garvey MD Cosigner Signature (If Indicated): Date CC: Sunny Wells MD PROGRESS Observed: 2018 Status: COMPLETED Source: [place] 12:58 PM [facility] MAIN CAMPUS REPOSITORY O ID: [id number] Author: Jeannette Bill Service: (none) Author Type: Registered Nurse Type: Progress Notes Filed: 2018 1:14 PM Note Text: PRIMARY CARE COORDINATION FOLLOW-UP NOTE Provider Action/FYI: Pt C/O pain hip worse after injection. Explained it may be for a few days. Has appt with Ector in 5 days. Patient identified by name and date of . YES Spoke to patient Summary: Rec'd message that pt having terrible pain. I called to speak with her. She had intra-artic inj by Dr Landa yesterday and stated pain worse hip to knee. She states she LM with Dr Landa's office this morning and waiting to hear back. She stated she felt OK leaving [place] and went home, took a nap and awoke sweating. She developed worsening pain when walking at home. By night time was sweaty but felt cold-worried she was having allergic reaction ANDcalled NOC last night and worked thru it. She is taking 1000mg Tylenol every 4-6 hrs she states. Instructed no more frequent than Q 6hrs due to acetaminophen toxicity. She is also actively taking Mobic. She doesn't have meter with her but I asked her to call me with reading last night and today- her sweating may be more related to BSs than hip. Concerns: She is complaining of continued worse pain now including back and upper hip area. She is on her way to [employer] to go grocery shopping and later will be going out to dinner with her 15 miles away to celebrate her birthday today. She is not tearful today, though she states she cried herself to sleep last night. I enc her to rest leg, ice/heat as tolerated, explained may take a few days to feel better, if at all. She has consult w/Dr. Barney in 5 days for some definitive treatment plans. Have previously discussed with pt previously that her DM must be under tighter control and she really needs to work on weight loss prior to any planned surgery for optimal success of outcome. [employer] plan for next outreach: Will follow up after Ector appt. Signature Jeannette Olmstead RN 2018 CNPTOUTREACH Observed: 2018 Status: COMPLETED Source: [place] 12:[address] [facility] REPOSITORY Patient Outreach (INTMWS) MIRZA DAIGLE ([id number]) 1990 F Date Time Provider Department 03/07/18 JEANNETTE BUSBY During your visit today, we recorded the following information about you: Jeannette Olmstead RN 2018 1:14 PM Signed PRIMARY CARE COORDINATION FOLLOW-UP NOTE Provider Action/FYI: Pt C/O pain hip worse after injection. Explained it may be for a few days. Has appt with Ector in 5 days. Patient identified by name and date of . YES Spoke to patient Summary: Rec'd message that pt having terrible pain. I called to speak with her. She had intra-artic inj by Dr Landa yesterday and stated pain worse hip to knee. She states she LM with Dr Landa's office this morning and waiting to hear back. She stated she felt OK leaving [place] and went home, took a nap and awoke sweating. She developed worsening pain when walking at home. By night time was sweaty but felt cold-worried she was having allergic reaction ANDcalled NOC last night and worked thru it. She is taking 1000mg Tylenol every 4-6 hrs she states. Instructed no more frequent than Q 6hrs due to acetaminophen toxicity. She is also actively taking Mobic. She doesn't have meter with her but I asked her to call me with reading last night and today- her sweating may be more related to BSs than hip. Concerns: She is complaining of continued worse pain now including back and upper hip area. She is on her way to [employer] to go grocery shopping and later will be going out to dinner with her 15 miles away to celebrate her birthday today. She is not tearful today, though she states she cried herself to sleep last night. I enc her to rest leg, ice/heat as tolerated, explained may take a few days to feel better, if at all. She has consult w/Dr. Barney in 5 days for some definitive treatment plans. Have previously discussed with pt previously that her DM must be under tighter control and she really needs to work on weight loss prior to any planned surgery for optimal success of outcome. [employer] plan for next outreach: Will follow up after Ector appt. Signature Jeannette Olmstead RN 2018 Allergies As of Date: 2018 Noted Allergy Reaction ASPIRIN 09/18/2005 4 - Hives 8 - GI Upset paper tape [Other] 06/26/2005 2 - Rash 7 - Swelling 9 - Itching Comments: Area gets very red also PENICILLINS 05/11/2013 4 - Hives Date Reviewed: 03/06/2018 Reviewed by: Karishma (Rn) RONIT Lott - Fully Assessed Reason for Visit: Postpartum Rn Chronic Care [3612] Prescriptions as of 2018 Sig: MELOXICAM 15 MG TABLET Take 1 tablet by mouth once d* PANTOPRAZOLE 40 MG TABLET,DEL* Take 1 tablet by mouth once d* Patient not taking: Reported on 01/13/2018 BLOOD SUGAR DIAGNOSTIC STRIPS Use as directed 4 times daily. METFORMIN ER 500 MG TABLET,EX* TAKE TWO TABLETS BY MOUTH WIT* LIRAGLUTIDE 0.6 MG/0.1 ML (18* Inject 1.2 mg subcutaneously * INSULIN GLARGINE (U-100) 100 * Inject 40 Units subcutaneousl* COMPOUNDED PRESCRIPTION One Touch meter kit. LANCETS Test blood sugar(s) 5 times * FAMOTIDINE 20 MG TABLET Take 1 tablet by mouth daily * ALCOHOL SWABS Use as directed up to 5 times* EMPTY CONTAINER 1 Can twice daily. PEN NEEDLE, DIABETIC 31 GAUGE* One daily with insulin COMPOUNDED PRESCRIPTION 1 Each as needed. Sharps Cont* EMPTY CONTAINER 1 Container as needed (to dis* LANCETS Use as instructed Problem List As Of Date 2018 Noted Resolved Type 2 diabetes mellitus (HCC) [E11.9] INVALID FOR* More... More... More... Obesity, unspecified [E66.9] INVALID FOR* More... History of flank pain [Z87.898] INVALID FOR*06/21/2014 More... More... More... History of depression [Z86.59] INVALID FOR* More... More... More... More... More... More... More... Depression [F32.9] INVALID FOR* Pain in right hip [M25.551] INVALID FOR* More... Chronic pain of right hip [M25.551, G89.29] INVALID FOR* More... Encounter Status:Closed by JEANNETTE BILL on 03/07/18 PT ED Observed: 03/06/2018 Status: COMPLETED Source: [place] 9:33 AM [facility] REPOSITORY HNO ID: [id number] Author: Binh (Rn) RONIT Vidal Service: Nursing Author Type: Registered Nurse Type: Patient Education Filed: 03/06/2018 9:34 AM Note Text: PATIENT EDUCATION TOPIC: PROCEDURE / SURGERY: Post Procedure Teaching: PATIENT NAME: Mirza Daigle PATIENT LOCATION: [place] Surgery/[place] Surgery READINESS TO LEARN COGNITIVE ABILITY: Alert and oriented MOTIVATION TO LEARN: Eager FAMILY SUPPORT: Moderate - Family present but overwhelmed INSTRUCTION PROVIDED TO: Patient PATIENT LEARNS BEST BY: Individual Instruction Verbal Instruction FACTORS AFFECTING LEARNING: None PHYSICAL LIMITATIONS AFFECTING LEARNING: None LEARNING RESPONSE DIAGNOSIS: ADULT: PATIENT/FAMILY RESPONSE: Verbalizes understanding of: METHOD OF INSTRUCTION: Individual instruction Verbal instruction FOLLOW-UP PLAN: Patient instructed to call with any further issues Follow-up with Primary Care INSTRUCTIONAL AIDS USED: NA SUPPLEMENTAL MATERIAL PROVIDED TO PATIENT: None REFERRAL (RECOMMENDATION): None Electronically Signed By: Binh Vidal RN OPERATIVE NO Observed: 03/06/2018 Status: COMPLETED Source: [place] 9:10 AM [facility] HNO ID: [id number] Author: Albert Landa Service: Pain Management Author Type: Physician Type: Operative Report Filed: 03/06/2018 9:12 AM Note Text: PATIENT NAME: Mirza Daigle SERVICE DATE: 03/06/2018 PROCEDURE NOTE PREOPERATIVE DIAGNOSIS(ES) Hip pain Osteoarthritis of the hip POSTOPERATIVE DIAGNOSIS(ES): Same OPERATION: Right Hip joint injection under fluoroscopy. ANESTHESIA: versed 3mg, fentanyl 50mcg. IV INDICATIONS: Mirza Daigle presents for hip joint injection. Since the last visit, the patient denies any new pain complaints and denies any focal neurological deficits. The plan is to proceed with right hip joint injection. The risks and benefits discussed in the office were reviewed. The patient expressed understanding the risks and benefits and informed consent was obtained. OPERATIVE PROCEDURE: The patient was brought to the operating room. The patient was placed in the left lateral decub position with routine monitors placed. The right hip area was prepped in sterile fashion. Upon lateral projection under fluoroscopy, right hip joint was identified. Entry point was marked and anesthetized with 0.25% Marcaine. This was followed by insertion of an 22-gauge spinal needle, which was inserted and advanced under fluoroscopy. Once the hip joint capsule was encountered, the aspiration was performed which was negative. This was followed by injection of Omnipaque 300, which revealed a spread into the joint capsule. There was no evidence of intravascular or intrathecal flow. This was then followed by a total injection of 4 mL of 0.25% Ropivicaine with 40 mg of Kenalog. The patient tolerated the procedure well. The needle was removed intact. Dry dressing was placed over the injection site. The patient was taken to the recovery room in stable condition. EBL: nil Start time: 9:04 AM End time: 9:10 AM I was present the entire time and personally performed the procedure. SIGNATURE: Albert Landa MD DATE: March 06, 2018 TIME: 9:11 AM XR FLUOROSCOPY Observed: 03/06/2018 Status: F Source: [place] 9:08 AM [facility] REPOSITORY * * *Final Report* * * DATE OF EXAM: Mar 06 2018 9:08AM MDR [id number] - XR FLUOROSCOPY / PROCEDURE REASON: RIGHT HIP STEROID INJECTION FOR PAIN * * * * Physician Interpretation * * * * INDICATION: Right hip pain TECHNIQUE: 3 spot images were obtained under fluoroscopic guidance and were stored in a permanent archive Fluoroscopic Radiation Summary: Plane A, Air Kerma: 7.0 mGy Dose Area Product (DAP): 538.4 mGy*cmS2 Fluoro time: 0:09 min:sec FINDINGS/ IMPRESSION: Tip of the needle projects over the right hip joint. Please refer to procedural note in Epic for further discussion. Plastic Card Grader Cardroom: XIAO Transcribe Date/Time: 2018 3:17P Dictated by : KAROLINA GREEN MD This examination was interpreted and the report reviewed and electronically signed by: KAROLINA GREEN MD on 2018 3:19PM EST [id number] HISTORY PHYSICAL Observed: 03/06/2018 Status: COMPLETED Source: [place] 8:53 AM [facility] REPOSITORY HNO ID: [id number] Author: Albert Landa Service: Pain Management Author Type: Physician Type: HANDP Filed: 03/06/2018 9:07 AM Note Text: HISTORY AND PHYSICAL EXAMINATION PATIENT NAME: Mirza Daigle DATE of SERVICE: 03/06/2018 Mirza Daigle is here for the pain mangement procedure. The patient presents with persistent pain complaints. Mirza Daigle denies any interval changes or new pain complaints or focal neurologic deficits. PAST MEDICAL HISTORY Diagnosis Date - Anemia WITH 2ND - Asthma since 14 years old, inhaler PRN - Complex ovarian cyst - Needs follow up imaging 06/09/2013 06/09/2013 An ultrasound was done 06/04/2013 that revealed a 6w5d fetus with DELFINA of 01/24/14. There is fluid seen adjacent to the gestastional sac possible subchorionic hemorrhage. the left ovary is within normal limits but the right ovary contains a 3.8 x 3 x 3.3 cm moderately complex cyst. TKRN 01/15/2014 - Confirmed 9 x 7 x 2.5 cm multi-loculated cyst at the time of . Needs outpatient follow up via [facility]. - Congenital hip deformity right - Diabetes, gestational insulin controlled - Family history of defects 06/09/2013 06/09/2013Patient's mother born with spina bifida. Patient's brother born with a hole in his heart. Patient has another brother that was born with Down syndrome. Patient and her brother born with a congenital hip deformity. Patient has had multiple corrective surgeries for the hip deformity.TKRN - Family history of Down syndrome 06/21/2014 Brother with DS - Family history of spina bifida 06/21/2014 Mom with Spina bifida in wheelchair - Gall stones 2007 Gall bladder removed - History of asthma 06/09/2013 06/09/2013Patient has a history of asthma. She uses an albuterol inhaler when necessary. TKRN - History of 06/09/2013 06/09/2013 Pt had 3 previous C sections. - History of kidney stones - Nausea/vomiting in 06/09/2013 06/09/2013She states she has nausea . Advised patient to call/come in if she has persistent vomiting or if her blood sugars were less than 70. TKRN - Ovarian cyst during 07/21/2014 07/21/14: see NT ultrasound: Right ovarian cyst 6cm - Pain in joint, pelvic region and thigh 01/10/2006 - Pancreatitis - Patient requested diagnostic testing 06/09/2013 06/09/2013 Patient desires early screening in with sequential testing. TKRN - depression - Prior macrosomia, antepartum 06/21/2014 - Short interval between pregnancies complicating , antepartum 06/09/2013 06/09/2013Nikki delivered her previous child August 14, 2012.TKRN - Type 2 diabetes mellitus (HCC) 05/22/2013 - Type 2 diabetes mellitus complicating , antepartum 05/28/2013 06/09/2013Nikki has a history of diabetes diagnosed 4 years ago. She was unaware that she was until she went into labor with her first . With her second she started insulin during the second trimester. She was referred to Dr. Tejada at [facility] for poorly controlled diabetes on metformin alone. She has since started insulin and has an appointment today with Dr. Guevara for followup. She has been keeping track of her blood sugars and presents with a journal today and these blood sugars are copy off and given to Dr. Guevara for his review. I have discussed with the patient the importance of good control of her blood sugars during and keeping a blood sugar log for review by the Doctor. She is reminded that she is to send her blood sugars in weekly to Dr. Guevara and she is to call sooner than a week if she has persistently high, greater the 180, or low blood sugars, less than 70. She is provided with a blood sugar log today. She has not had a diabetic foot or eye exam rece PAST SURGICAL HISTORY Procedure Laterality Date - DELIVERY ONLY , low transverse x3 - DELIVERY ONLY 01/19/15 , low transverse - IANDD ABSC; [facility] OR SGL 05/2013 cyst on left upper chest - LAPAROSCOPIC CHOLEYCYSTECTOMY Cholecystectomy, lap - PAST SURGICAL HISTORY OF tubes in ears per Dr Crockett at [facility] - PAST SURGICAL HISTORY OF Tonsils and Adenoids removed per Dr Crockett at [facility] - PAST SURGICAL HISTORY OF [address]roquin at [facility] and one by Dr. Camacho in [place] - REMOVAL OF OVARY/TUBE(S) 01/19/15 Salpingo-oophorectomy, right ovarian mass Social History Marital status: Single Spouse name: Years of education: 10 Number of children: 2 Occupational History Occupation Employer Comment [employer]OMEM[employer] Social History Main Topics Smoking status: Never Smoker Smokeless tobacco: Never Used Comment: mom's marquise smokes outside Alcohol use: No Drug use: No Sexual activity: Yes Partners with: Male FAMILY HISTORY Problem Relation Age of Onset - Diabetes Mother - Hypertension Mother - other (spina bifida) Mother - Heart Father - Hypertension Father - Cancer Maternal Grandmother - Alcohol/Drug Maternal Grandmother - Heart Paternal Grandmother - Aneurysm Paternal Grandmother - Stroke Brother - other (Down Syndrome) Brother - other (autism) Brother step brother - seizures and cerebral palsy also - other (Open family hx of Neural Tube Defect) Brother ALLERGIES Allergen Reactions - Aspirin Hives, GI Upset - Paper Tape [Other] Rash, Swelling, Itching Area gets very red also - Penicillins Hives Current Facility-Administered Medications: NaCl 0.9% iv infusion 30 mL/hr INTRAVENOUS CONTINUOUS Physical Exam: Performed in conjunction with observation. The patient is alert and oriented x3. The patient is in no acute distress. Neck: Supple. The range of motion is intact. Lungs: clear CVR: RRR. Extremities: no reported edema or erythema. Examination indicates no changes Impression: Chronic right hip pain Plan: The informed consent has been obtained. The plan is to proceed with the procedure as planned. SIGNATURE: Albert Landa MD DATE: March 06, 2018 TIME: 8:54 AM PT ED Observed: 03/06/2018 Status: COMPLETED Source: [place] 7:54 AM [facility] OTHER CAMPUS REPOSITORY HNO ID: [id number] Author: Stormy (Rn) RONIT Rodriguez Service: (none) Author Type: Registered Nurse Type: Patient Education Filed: 03/06/2018 7:55 AM Note Text: PRE OP LEARNING ASSESSMENT PROCEDURE/SURGERY: SURGERY:Pain block READINESS TO LEARN COGNITIVE ABILITY: Alert and oriented MOTIVATION TO LEARN: Interested FAMILY SUPPORT: Unable to assess - Family not present PATIENT LEARNS BEST BY: Individual Instruction Verbal Instruction FACTORS AFFECTING LEARNING: None PHYSICAL LIMITATIONS AFFECTING LEARNING: None Electronically Signed By: Stormy Rodriguez RN In Department: [facility] CBC AND DIFFERENTIAL Collected: 03/04/2018 Status: F Source: [place] 9:26 AM CL[facility]IC MAIN CAMPUS REPOSITORY TYPE CODE TESTS RESULT OUT OF REFERENCE UNITS RANGE LAB WBC 3.70-11.00 k/uL WBC 9.45 LAB RBC 3.90-5.20 m/uL RBC 4.60 LAB HGB 11.5-15.5 g/dL Hemoglobin 14.6 LAB HCT 36.0-46.0 % Hematocrit 43.3 LAB MCV 80.0-100.0 fL MCV 94.1 LAB MCH 26.0-34.0 pG MCH 31.7 LAB MCHC 30.5-36.0 g/dL MCHC 33.7 LAB RDWCV 11.5-15.0 % RDW-CV 13.2 LAB PLTCT 150-400 k/uL Platelet Count 288 LAB MPV 9.0-12.7 fL MPV 9.8 LAB ANEUT % Neut% 59.7 LAB AANEUT 1.45-7.50 k/uL Abs Neut 5.64 LAB ALYMP % Lymph% 31.7 LAB AALYMP 1.00-4.00 k/uL Abs Lymph 3.00 LAB AMONO % Worth% 6.6 LAB AAMONO <0.87 k/uL Abs Worth 0.62 LAB AEOS % Eosin% 1.6 LAB AAEOS <0.46 k/uL Abs Eosin 0.15 LAB ABASO % Baso% 0.4 LAB AABASO <0.11 k/uL Abs Baso 0.04 LAB AUNRBC 0 /100 WBC NRBCs 0.0 LAB ABNRBC <0.01 k/uL Absolute nRBC <0.01 LAB DTYP DTYPE Auto Diff Performed By: #### CBCDIF, CMP, HBA1C #### [facility] [address] [place], [place] [address] COMP METABOLIC PANEL Collected: 03/04/2018 Status: F Source: [place] 9:[address] [facility] REPOSITORY TYPE CODE TESTS RESULT OUT OF REFERENCE UNITS RANGE LAB TP 6.3-8.0 g/dL Protein, Total 6.6 LAB ALB 3.9-4.9 g/dL Albumin 4.1 LAB CA 8.5-10.2 mg/dL Calcium, Total 9.2 LAB TBIL 0.2-1.3 mg/dL Bilirubin, Total 0.8 LAB ALKP 34-123 U/L Alkaline Phosphatase 78 LAB AST 13-35 U/L AST 20 LAB GLU 74-99 mg/dL Glucose High 245 Result Comment: The [place] Diabetes Association (ADA) provides guidance for cutoff values for fasting glucose and random glucose. The ADA defines fasting as no caloric intake for at least 8 hours. Fas ting plasma glucose results between 100 to 125 mg/dL indicate increased risk for diabetes (prediabetes). Fasting plasma glucose results greater than or equal to 126 mg/dL meet the criteria for diagnosis of diabetes. In the absence of unequivocal hyperglycemia, results should be confirmed by repeat testing. In a patient with classic symptoms of hyperglycemia or hyperglycemic crisis, random plasma glucose results greater than or equal to 200 mg/dL meet the criteria for diagnosis of diabetes. Reference: Standards of Medical Care in Diabetes 2016, [place] Diabetes Association. Diabetes Care. 2016.39(Suppl 1). LAB BUN 7-21 mg/dL BUN 7 LAB CRET 0.58-0.96 mg/dL Creatinine Low 0.45 LAB NA 136-144 mmol/L Sodium 136 LAB K 3.7-5.1 mmol/L Potassium 4.0 LAB CL 97-105 mmol/L Chloride 99 LAB CO2 22-30 mmol/L CO2 Low 21 LAB AGAP 9-18 mmol/L Anion Gap 16 LAB ALT 7-38 U/L ALT 18 LAB GFRAA eGFR- Amer. >60 LAB GFRNAA . eGFR-All Other Races >60 Result Comment: eGFR (Estimated GFR) Units of measure: mL/min/1.73 meters squared eGFR is derived from the reexpressed MDRD Study equation using the following parameters: serum creatinine, age, gender and race. The creatinine assay has been calibrated to be traceable to IDMS. An eGFR <60 mL/min/1.73m2 for >3 months is consistent with chronic kidney disease. Refer to KDOQI guidelines for clinical interpretation. In patients with unstable renal function, e.g. those with acute kidney injury, the eGFR may not accurately reflect actual GFR. Performed By: #### CBCDIF, CMP, HBA1C #### [facility] [address] [place], [place] [address] HEMOGLOBIN A1C Collected: 03/04/2018 Status: F Source: [place] 9:26 AM [facility] REPOSITORY TYPE CODE TESTS RESULT OUT OF REFERENCE UNITS RANGE LAB HGBA1C 4.3-5.6 % High Hemoglobin A1c 8.2 LAB HBA0 mg/dL Est. Average Glucose 189 Result Comment: eAG: (Estimated average glucose) is a calculated value from HgbA1c and is client care representative of the average blood glucose level in the last 2-3 month period. Performed By: #### CBCDIF, CMP, HBA1C #### [facility] [address] [place] [id number] PROGRESS Observed: 02/26/2018 Status: COMPLETED Source: [place] 1:[address] [facility] REPOSITORY HNO ID: [id number] Author: Jeannette Bill Service: (none) Author Type: Registered Nurse Type: Progress Notes Filed: 03/03/2018 2:54 PM Note Text: PRIMARY CARE COORDINATION QUICK NOTE Provider Action/FYI: Please file lab orders for which pt is due. Patient identified by name and date . Pt is due for labs and having procedure by Dr. Landa next week. Would like to do them either prior to or same day. Having trouble with her BS meter, says needs battery but has tried new one, without success. Freestyle Dixon Lite. Hasn't checked for 2 days. No BS above 195, per pt. days ago. Will come in tomorrow for labs. Has hip injection planned for this week and seeing Dr Barney next week for complicated hip problems and poss THR. She is unable to go to basement, is sleeping in recliner as she is unable to lay in bed. Constant pain. CNPTOUTREACH Observed: 02/26/2018 Status: COMPLETED Source: [place] 12:[address] [facility] REPOSITORY Patient Outreach (INTMWS) MIRZA DAIGLE ([id number]) 1990 F Date Time Provider Department 02/26/18 JEANNETTE BUSBY During your visit today, we recorded the following information about you: Jeannette Lashell Olmstead RN 03/03/2018 2:54 PM Signed PRIMARY CARE COORDINATION QUICK NOTE Provider Action/FYI: Please file lab orders for which pt is due. Patient identified by name and date . Pt is due for labs and having procedure by Dr. Landa next week. Would like to do them either prior to or same day. Having trouble with her BS meter, says needs battery but has tried new one, without success. FreestHyperpia Dixon Lite. Hasn't checked for 2 days. No BS above 195, per pt. days ago. Will come in tomorrow for labs. Has hip injection planned for this week and seeing Dr Barney next week for complicated hip problems and poss THR. She is unable to go to basement, is sleeping in recliner as she is unable to lay in bed. Constant pain. Allergies As of Date: 02/26/2018 Noted Allergy Reaction ASPIRIN 09/18/2005 4 - Hives 8 - GI Upset paper tape [Other] 06/26/2005 2 - Rash 7 - Swelling 9 - Itching Comments: Area gets very red also PENICILLINS 05/11/2013 4 - Hives Date Reviewed: 01/13/2018 Reviewed by: Kip Luevano - Fully Assessed Primary Visit Diagnosis:Type 2 diabetes mellitus with hyperglycemia, with long-term current use of insulin (HCC) [E11.65, Z79.4] Other Visit Diagnosis:Abnormal white blood cell (WBC) count [D72.9] Order(s):COMP METABOLIC PANEL [SQCMP] Order #: [id number] FUTURE HGB A1C [QYPJA4G] Order #: [id number] STANDING CBC + DIFF [SQCBCDIF] Order #: [id number] FUTURE Prescriptions as of 02/26/2018 Sig: MELOXICAM 15 MG TABLET Take 1 tablet by mouth once d* PANTOPRAZOLE 40 MG TABLET,DEL* Take 1 tablet by mouth once d* Patient not taking: Reported on 01/13/2018 BLOOD SUGAR DIAGNOSTIC STRIPS Use as directed 4 times daily. TRIAMCINOLONE ACETONIDE 0.025* Apply 1 application to affect* Patient not taking: Reported on 01/13/2018 METFORMIN ER 500 MG TABLET,EX* TAKE TWO TABLETS BY MOUTH WIT* LIRAGLUTIDE 0.6 MG/0.1 ML (18* Inject 1.2 mg subcutaneously * INSULIN GLARGINE (U-100) 100 * Inject 40 Units subcutaneousl* COMPOUNDED PRESCRIPTION One Touch meter kit. LANCETS Test blood sugar(s) 5 times * FAMOTIDINE 20 MG TABLET Take 1 tablet by mouth daily * ALCOHOL SWABS Use as directed up to 5 times* EMPTY CONTAINER 1 Can twice daily. PEN NEEDLE, DIABETIC 31 GAUGE* One daily with insulin COMPOUNDED PRESCRIPTION 1 Each as needed. Sharps Cont* EMPTY CONTAINER 1 Container as needed (to dis* LANCETS Use as instructed Problem List As Of Date 02/26/2018 Noted Resolved Type 2 diabetes mellitus (HCC) [E11.9] INVALID FOR* More... More... More... Obesity, unspecified [E66.9] INVALID FOR* More... History of flank pain [Z87.898] INVALID FOR*06/21/2014 More... More... More... History of depression [Z86.59] INVALID FOR* More... More... More... More... More... More... More... Depression [F32.9] INVALID FOR* Pain in right hip [M25.551] INVALID FOR* More... Chronic pain of right hip [M25.551, G89.29] INVALID FOR* More... Encounter Status:Closed by JEANNETTE BILL on 03/03/18 EMERGENCY DEPARTMENT Observed: 02/21/2018 Status: F Source: [place] 4:53 PM [facility] Medical Records Department [address] [place] [id number] Emergency Department Summary 02/21/18 1336 MR#: [id number] Acct: [id number] Name: MIRZA DAIGLE Rep #: [id number] : 1990 27 From: Duane Venegas MD PCP: Sunny Wells MD Status: DEP ER - ER Visit Summary Date of Service: 02/21/18 Chief Complaint: Nausea, vomiting, diarrhea and epigastric abdominal pain History of Present Illness: The patient is a 27 F past medical history of insulin-dependent diabetes and one episode of pancreatitis. Status post cholecystectomy. Patient states last 4 days she has had nausea, vomiting, diarrhea and epigastric abdominal pain that radiates in her back. No fever. No dysuria. No vaginal bleeding or discharge. Physical Examination: Young female no acute distress. Vital signs are stable she is afebrile. She does not look septic or toxic. HEENT exam unremarkable. Moist mucous membranes. Neck nontender. No lymphadenopathy. Lungs clear to auscultation bilaterally. Heart regular rhythm no murmur. Abdomen soft. Nondistended. Normal bowel sounds. No peritoneal signs. Mild epigastric tenderness. No hernias or masses. No signs of obstruction. Moving all 4 extremities. Neurovascularly intact. Neck nontender. Neurologically awake and alert. No focal deficits. Test Results: BC normal. White count of 7. Normal hemoglobin. Electrolytes unremarkable gap 11. Creatinine normal. Glucose 236. Liver enzymes unremarkable. Her total bilirubin was slightly elevated but it has been that same level in the past. Lipase normal. test negative. Emergency Department Course and Treatment: Treated with IV fluids. IV Zofran and IV morphine for the abdominal pain. Treatment Plan: Repeat exam the patient is doing better at 1547. Abdomen is benign. She is comfortable being discharged home with outpatient follow-up. She will be written for Zofran. Disposition: Discharge Impression: Abdominal pain Acute nausea, vomiting and diarrhea secondary to viral gastroenteritis This note was generated with [employer] dictation software. It may contain incorrect words, spelling, and punctuation that were not noted in review of the chart prior to signing ED Disposition - Plan for ED Patient: Chief Complaint: Nausea/Vomiting/Diarrhea Referrals: Sunny Wells MD [Primary Care Provider] - What to do if you have Problems For any increased pain, shortness of breath, bleeding, nausea or vomiting, chest pain, or any unexpected problems, contact your Primary Care Provider. Call [facility] ([phone]) or report to the closest Emergency Room. Call 911 if necessary. 02/21/18 2170 <Electronically signed by Duane Venegas MD> Date Duane Venegas MD Cosigner Signature (If Indicated): Date CC: Sunny Wells MD DISCHARGE INSTRUCTION Observed: 02/21/2018 Status: F Source: [place] 4:53 PM [facility] REPOSITORY [facility] Medical Records Department [address] [address] Discharge Instruction 02/21/18 1549 MR#: [id number] Acct: [id number] Name: MIRZA DAIGLE Rep #: [id number] : 1990 27 From: Duane Venegas MD PCP: Sunny Wells MD Status: DEP ER ED Disposition - Plan for ED Patient: Disposition: Home or Assisted Living Chief Complaint: Nausea/Vomiting/Diarrhea Instructions: ED Gastroenteritis Viral Prescriptions: Ondansetron [Zofran Odt] 4 mg PO Q4H PRN PRN #10 tab.rapdis PRN Reason: Nausea Referrals: Sunny Wells MD [Primary Care Provider] - 3-5 Days if not improving Additional Instructions: Plenty fluids and rest. Zofran as needed for nausea. Return to ER feeling worse or follow-up your primary care physician if not improving. What to do if you have Problems For any increased pain, shortness of breath, bleeding, nausea or vomiting, chest pain, or any unexpected problems, contact your Primary Care Provider. Call [facility] ([phone]) or report to the closest Emergency Room. Call 911 if necessary. 02/21/18 9373 <Electronically signed by Duane Venegas MD> Date Duane Venegas MD Cosigner Signature (If Indicated): Date CC: Sunny Wells MD CBC W/DIFF, AUTOMATED Collected: 02/21/2018 Status: F Source: [place] 1:50 PM [facility] TYPE CODE TESTS RESULT OUT OF RANGE REFERENCE UNITS LAB L100.1000 4.4-11.0 K/mm3 Normal WBC 7.8 LAB L100.1200 4.2-5.4 M/mm3 Normal RBC 4.42 LAB L100.1300 12.0-15.0 g/dl Normal HGB 14.0 LAB L100.1400 37-47 % Normal HCT 39.4 LAB L100.1500 81-99 fL Normal MCV 89.1 LAB L100.1600 27.0-32.0 pg Normal MCH 31.7 LAB L100.1700 32-36 g/gl Normal MCHC 35.5 LAB L100.1810 11.6-14.6 % Normal RDW CV 13.2 LAB L100.1820 35.1-43.9 fl Normal RDW SD 42.6 LAB L100.1900 150-450 K/mm3 Normal PLT 258 LAB L100.2000 6.2-12.0 fl Normal MPV 9.2 LAB L100.2100 47-70 % Normal NEUT% 52.0 LAB L100.2200 19-41 % Normal LY% 37.8 LAB L100.2300 0-10 % Normal MONO% 7.9 LAB L100.2400 0-5 % Normal EO% 1.7 LAB L100.2500 0-1 % Normal BASO% 0.3 LAB L100.2550 0.0-0.9 % Normal IM GRAN % 0.300 Result Comment: IG% - Immature Granulocytes (promyelocytes, myelocytes and metamyelocytes) > 1% indicates that a LEFT SHIFT is Present. LAB L100.2620 2.0-7.7 X10 3/uL Normal Absolute Neut 4.1 LAB L100.2720 0.83-4.51 X10 3/ul Normal Absolute Lymph 2.96 Performed By: #### L100.0100 #### [facility] [address] [place], [place], [id number] BASIC METABOLIC Collected: 02/21/2018 Status: F Source: [place] PROFILE ([facility]) 1:50 PM [facility] TYPE CODE TESTS RESULT OUT OF RANGE REFERENCE UNITS LAB L501.0100 74-106 mg/dL High GLU 236 Result Comment: Glucose result greater than or equal to 200 mg/dL suggests DIABETES MELLITUS per A.D.A. criteria. Please note revised GLUCOSE reference range effective 2017. LAB L501.1000 7-18 mg/dL Normal BUN 8 LAB L501.1100 0.55-1.02 mg/dL Normal CREAT,SERUM 0.59 Result Comment: The validity of the calculated GFR AND GFRAA in patients over 70 years has not been determined. Clinical correlation is essential. LAB L501.1110 >60 mL/min Normal EST GFR 131 Result Comment: Non- GFR Calc LAB L501.1115 >60 mL/min Normal EST GFR - AA 159 Result Comment: GFR Calc LAB L501.1255 ml/min Normal Estimated CRCL 141.75 LAB L501.1300 10-20 RATIO BUN/CRE Normal 13.6 LAB L501.2200 8.5-10 mg/dL Low .1 CA 8.4 LAB L501.5300 136-14 mmol/L 5 NA Normal 137 LAB L501.5600 3.5-5. mmol/L 1 K Normal 3.5 LAB L501.5900 98-107 mmol/L CL Normal 105 LAB L501.6100 21.0-3 mmol/L 2.0 CO2 Normal 21.0 LAB L501.6200 5-15 GAP Normal 11 Performed By: #### L500.2500, L500.3400, L501.2450 #### [facility] [address] [place], [place], [address] LIVER PROFILE Collected: 02/21/2018 Status: F Source: [place] 1:50 PM [facility] TYPE CODE TESTS RESULT OUT OF RANGE REFERENCE UNITS LAB L501.1500 6.4-8.2 g/dL Normal T PROT 6.9 LAB L501.1800 3.2-5.0 g/dL Normal ALB 3.5 LAB L501.1950 2.2-4.2 g/dL Normal GLOB 3.4 LAB L501.4100 15-37 U/L Normal AST 21 LAB L501.4305 45-117 U/L Normal ALK P 91 LAB L501.4405 13-56 U/L Normal ALT 33 LAB L501.4600 0.20-1.00 mg/dL High T BILI 1.40 LAB L501.4700 0.00-0.30 mg/dL Normal D BILI 0.27 Performed By: #### L500.2500, L500.3400, L501.2450 #### [facility] [address] [place], [address] LIPASE Collected: 02/21/2018 Status: F Source: [place] 1:50 PM [facility] TYPE CODE TESTS RESULT OUT OF REFERENCE UNITS RANGE LAB L501.2450 73-393 U/L Low LIPASE 61 Performed By: #### L500.2500, L500.3400, L501.2450 #### [facility] [address] [place], [address] ,SERUM,HCG QUALI. Collected: Status: F Source: [place] 02/21/2018 1:50 PM [facility] TYPE CODE TESTS RESULT OUT OF REFERENCE UNITS RANGE LAB L700.6700 =>Qualitative mIU/mL Normal HCG Qual < 1 triggr LAB L700.7000 0-9 Nonpreg Negative Normal HCGSQUAL NEGATIVE Performed By: #### L700.6800 #### [facility] [address] [place], [address] PROGRESS Observed: 02/17/2018 Status: COMPLETED Source: [place] 9:[address] [facility] REPOSITORY HNO ID: [id number] Author: Albert Landa Service: (none) Author Type: Physician Type: Progress Notes Filed: 02/17/2018 11:07 AM Note Text: [facility] Date: February 17, 2018 - 9:39 AM Mirza Daigle is seen in consultation requested by Dr. Pacheco ([facility]ie for an opinion regarding right hip pain. My final recommendations will be communicated back to the requesting physician by way of shared medical record or via US mail. Chief Complaint: Right Hip Pain SUBJECTIVE: Mirza Daigle, is a 27 year old year old with no significant past medical history, who presents with right hip pain. The pain started 2 years ago, following with no precipitating event. and is worsening. She is s/p multiple surgeries of right hip. Her pain is located in the right abdominal region and is located in the hip area and radiates down the buttock region down to the knee. The pain is described as aching and sharp. The pain intensity is rated 8. The pain is exacerbated by standing and walking and relieved by sitting and resting. Symptoms interfere with physical activity, walking and household cleaning. Obtained by Yolanda Hwang MA by interview I have reviewed, confirmed and edited the preliminary information with the patient: In addition the patient reports no additional concerns. Litigation: No. Prior pain treatment has included physical therapy with partial relief, Completed 11 years ago She had relief from the following interventions: None. ALLERGIES Allergen Reactions - Aspirin Hives, GI Upset - Paper Tape [Other] Rash, Swelling, Itching Area gets very red also - Penicillins Hives Current Medications: Pain medications reviewed and reconciled in the medication list: Yes. Current Outpatient Prescriptions: blood sugar diagnostic (FREESTYLE LITE STRIPS) test strip Use as directed 4 times daily. metFORMIN ER (GLUCOPHAGE XR) 500 mg 24 hr tablet TAKE TWO TABLETS BY MOUTH WITH BREAKFAST AND TWO TABLETS WITH SUPPER liraglutide (VICTOZA 2-[place]) 0.6 mg/0.1 mL (18 mg/3 mL) pnij Inject 1.2 mg subcutaneously once daily. insulin glargine (BASAGLAR KWIKPEN U-100 INSULIN) 100 unit/mL (3 mL) inpn Inject 40 Units subcutaneously daily at bedtime. COMPOUNDED PRESCRIPTION One Touch meter kit. Lancets (ONETOUCH ULTRASOFT LANCETS) lancets Test blood sugar(s) 5 times daily. Dx: Type 2 DM - Controlled E11.9 , Insulin: yes famotidine (PEPCID) 20 mg tablet Take 1 tablet by mouth daily at bedtime. Alcohol Swabs padm Use as directed up to 5 times daily DM: yes Insulin: yes DX: E.11.9 Oral Medication Containers (SHARPS CONTAINER) misc 1 Can twice daily. insulin needles, DISPOSABLE, (PEN NEEDLE) 31 gauge x 5/16 ndle One daily with insulin COMPOUNDED PRESCRIPTION 1 Each as needed. Sharps Container. Dx:Diabetes mellitus, antepartum (648.03) Oral Medication Containers (BD SHARPS PRIVATE BANKER) misc 1 Container as needed (to disopse of insulin needles). Lancets (ONE TOUCH SURESOFT LANCING DEV) lancets Use as instructed meloxicam (MOBIC) 15 mg tablet Take 1 tablet by mouth once daily. X 10 days, then daily as needed with food. pantoprazole DR (PROTONIX) 40 mg tablet Take 1 tablet by mouth once daily. (Patient not taking: Reported on 01/13/2018 ) triamcinolone (KENALOG) 0.025 % cream Apply 1 application to affected area twice daily. (Patient not taking: Reported on 01/13/2018 ) No current facility-administered medications for this visit. PAST MEDICAL HISTORY Diagnosis Date - Anemia WITH 2ND - Asthma since 14 years old, inhaler PRN - Complex ovarian cyst - Needs follow up imaging 06/09/2013 06/09/2013 An ultrasound was done 06/04/2013 that revealed a 6w5d fetus with DELFINA of 01/24/14. There is fluid seen adjacent to the gestastional sac possible subchorionic hemorrhage. the left ovary is within normal limits but the right ovary contains a 3.8 x 3 x 3.3 cm moderately complex cyst. TKRN 01/15/2014 - Confirmed 9 x 7 x 2.5 cm multi-loculated cyst at the time of . Needs outpatient follow up via TVUS. - Congenital hip deformity right - Diabetes, gestational insulin controlled - Family history of defects 06/09/2013 06/09/2013Patient's mother born with spina bifida. Patient's brother born with a hole in his heart. Patient has another brother that was born with Down syndrome. Patient and her brother born with a congenital hip deformity. Patient has had multiple corrective surgeries for the hip deformity.TKRN - Family history of Down syndrome 06/21/2014 Brother with DS - Family history of spina bifida 06/21/2014 Mom with Spina bifida in wheelchair - Gall stones 2007 Gall bladder removed - History of asthma 06/09/2013 06/09/2013Patient has a history of asthma. She uses an albuterol inhaler when necessary. TKRN - History of 06/09/2013 06/09/2013 Pt had 3 previous C sections. - History of kidney stones - Nausea/vomiting in 06/09/2013 06/09/2013She states she has nausea . Advised patient to call/come in if she has persistent vomiting or if her blood sugars were less than 70. TKRN - Ovarian cyst during 07/21/2014 07/21/14: see NT ultrasound: Right ovarian cyst 6cm - Pain in joint, pelvic region and thigh 01/10/2006 - Pancreatitis - Patient requested diagnostic testing 06/09/2013 06/09/2013 Patient desires early screening in with sequential testing. TKRN - depression - Prior macrosomia, antepartum 06/21/2014 - Short interval between pregnancies complicating , antepartum 06/09/2013 06/09/2013Nikki delivered her previous child August 14, 2012.TKRN - Type 2 diabetes mellitus (HCC) 05/22/2013 - Type 2 diabetes mellitus complicating , antepartum 05/28/2013 06/09/2013Nikki has a history of diabetes diagnosed 4 years ago. She was unaware that she was until she went into labor with her first . With her second she started insulin during the second trimester. She was referred to Dr. Tejada at [facility] for poorly controlled diabetes on metformin alone. She has since started insulin and has an appointment today with Dr. Guevara for followup. She has been keeping track of her blood sugars and presents with a journal today and these blood sugars are copy off and given to Dr. Guevara for his review. I have discussed with the patient the importance of good control of her blood sugars during and keeping a blood sugar log for review by the Doctor. She is reminded that she is to send her blood sugars in weekly to Dr. Guevara and she is to call sooner than a week if she has persistently high, greater the 180, or low blood sugars, less than 70. She is provided with a blood sugar log today. She has not had a diabetic foot or eye exam rece PAST SURGICAL HISTORY Procedure Laterality Date - DELIVERY ONLY , low transverse x3 - DELIVERY ONLY 01/19/15 , low transverse - IANDD ABSC; [facility] OR SGL 05/2013 cyst on left upper chest - LAPAROSCOPIC CHOLEYCYSTECTOMY Cholecystectomy, lap - PAST SURGICAL HISTORY OF tubes in ears per Dr Crockett at [facility] - PAST SURGICAL HISTORY OF Tonsils and Adenoids removed per Dr Crockett at [facility] - PAST SURGICAL HISTORY OF [address] Marroquin at [facility] and one by Dr. Camacho in [place] - REMOVAL OF OVARY/TUBE(S) 01/19/15 Salpingo-oophorectomy, right ovarian mass FAMILY HISTORY Problem Relation Age of Onset - Diabetes Mother - Hypertension Mother - other (spina bifida) Mother - Heart Father - Hypertension Father - Cancer Maternal Grandmother - Alcohol/Drug Maternal Grandmother - Heart Paternal Grandmother - Aneurysm Paternal Grandmother - Stroke Brother - other (Down Syndrome) Brother - other (autism) Brother step brother - seizures and cerebral palsy also - other (Open family hx of Neural Tube Defect) Brother Social History: Alcohol Use: No Tobacco Use: Never (mom's fiance smokes outside) Drug Use: No Employer And Job Title: No employer specified ([employer]OMEM[employer]) Years Of Education Completed: 10 years Marital Status: Single with 2 children REVIEW OF SYSTEMS: Constitutional: (-) Fever (-) Night Sweats (-) Weight Gain (-) Weight Loss (-) Fatigue Cardiovascular: (-) Chest Pain (-) Palpitations (-) Lightheadedness (-) Swelling of Ankles (-) Hx Heart Surgery Respiratory: (-) Shortness of Breath (-) Cough (-) Wheezing (-) Snoring Gastrointestinal: (-) Incontinence (-) Abdominal Pain (-) Diarrhea (-) Constipation (-) Nausea/Vomiting (-) Heart Burn Endocrine: (-) Thyroid Disorder (+) Diabetes Hematologic: (-) Prolonged Bleeding (+) Easy Bruising Genitourinary: (-) Incontinence (-) Frequency (-) Urinary Urgency Skin: (-) Rashes (-) Itching (-) Other Lesions Neurologic: (-) Headache (-) Double Vision (-) Confusion (-) Paralysis (-) Vertigo (-) Syncope Psychiatric: (-) Depression (-) Anxiety (-) Delusions (-) Hallucinations (-) Suicidal Thoughts Yolanda Hwang MA OARRS Report reviewed: Yes Narcotic Agreement reviewed and signed?: N/A Baseline Urine Toxicology obtained: N/A Urine Panel: No results found for: UQCANN, UQBNZL, YPV3HGO, UQAMPH, UQMAMP, UQBUPRE, UQNORBUP, UQMTHD, UQEDDP, UQTRAM, UQDTRM, UQFNTL, UQNFTL, UQCODE, UQMORP, UQDCDN, UQHCOD, UQOXYC, UQHMOR, UQOXYM, UQCREA, UQPH, UQSPGR, UQOXID, UQSPQ The pain panel was N/A I have reviewed, confirmed and edited the preliminary information with the patient: OBJECTIVE: PHYSICAL EXAMINATION: Pulse 92 Wt 290 lb (131.5kg) SpO2 97% General: Well-appearing, alert, in no acute distress Skin: Skin color, texture, turgor normal, no rashes or lesions HEENT: Normocephalic, atraumatic, sclera nonicteric CV: Regular rate and rhythm -Pulses: +2 and equal bilaterally Resp: Breathing unlabored, normal chest excursion. GI: Abdomen soft, not distended nontender Lymphatic:No lymphadema Musculoskeletal Neck: Posture and spinal curves are normal, Supple, normal range of motion, non-tender Back: Posture and spinal curves are normal, normal range of motion without reproducible pain, mild pain to palpation of the lumbar spine , straight leg raising test is negative bilaterally. Mild right PSIS tenderness. Negative sacral thrust. Extremities: Incision over the right lateral hip area was noted. Incisional numbness was noted. Right hip range of motion was limited with particularly the lateral abduction with reproducible hip pain. She also demonstrated tenderness to palpation of the trochanteric tuberosity region. Neurological: Mental Status: Alert and oriented x3, Appropriate to topic Cranial Nerves: 2 through 12 intact Motor Strength:Motor strength and tone are 5/5 throughout Sensory:Sensation was intact to light touch all throughout DTR:Lower extremity reflexes are +2/4 and symmetric Gait: normal Medical record and diagnostic tests reviewed for today's visit: The [facility] EMR was reviewed during the visit IMAGING STUDIES: No new imaging studies were reviewed during this office visit. ASSESSMENT: (M25.551) Pain in right hip (primary encounter diagnosis) (M25.551, G89.29) Chronic pain of right hip Discussion: Discussed options for additional treatment including health promotion/lifestyle modifications, medication management, and additional pain management interventions. We also discussed strategies such as physical or occupational therapy, psychological pain management and surgical options as appropriate. Also a discussion was entertained regarding chronic opioid therapy as it relates to chronic benign pain. A snf use of opioids have generally not been effective in managing chronic benign pain, therefore I do not recommend it. Other factors that may contribute to chronic pain were discussed including smoking, obesity, and a sedentary lifestyle. PLAN: 1. She has had multiple surgeries of the right hip with persistent and worsening pain. X-ray of the right hip was reviewed. A discussion took place regarding the source of pain. We discussed that there may be a multicomponent including soft tissue versus degeneration of the right hip joint. She is scheduled with orthopedic surgery for further evaluation. It is noted that her brother who had similar hip issues underwent hip replacement surgery at young age and is doing quite well. 2. Recommend diagnostic right hip intra-articular injection as a diagnostic and therapeutic approach. Certainly, the goal is to reduce her pain with intra-articular injection if the source of the pain is from the hip socket and not soft tissue that's contributed to her pain. 3. No new medication was started. Again long-term use of the opioids was not recommended. 4. Consider chronic pain rehabilitation program if surgery is not felt to be an option. 5. Follow up:6 months The above plan and management options were discussed with patient. The patient is in agreement with the above and verbalized understanding. I have discussed and confirmed the above treatment plan with the patient. and I have reviewed the nurses notes and I am aware of the family/social history. Albert Landa MD February 17, 2018 cc: Tara Roman APRN.EDUCATIONAL TECHNOLOGY SPECIALIST [address] [facility] [id number] Results of consultation to be transmitted via electronic medical record for those providers who practice within [facility] or with access to iOpener via MD Connect, or via letter. CNOV Observed: 02/17/2018 Status: COMPLETED Source: [place] 9:[address] [facility] REPOSITORY Office Visit (PNMDNA) MIRZA DAIGLE ([id number]) 1990 F Date Time Provider Department 02/17/18 9:30 AM ALBERT LANDA During your visit today, we recorded the following information about you: Pulse Weight 92/minute 131.5 kg Albert Landa MD 02/17/2018 11:07 AM Signed [facility] Pain Management Department Date: February 17, 2018 - 9:39 AM Mirza Daigle is seen in consultation requested by Dr. Pacheco ([facility]) Jessie for an opinion regarding right hip pain. My final recommendations will be communicated back to the requesting physician by way of shared medical record or via US mail. Chief Complaint: Right Hip Pain SUBJECTIVE: Mirza Daigle, is a 27 year old year old with no significant past medical history, who presents with right hip pain. The pain started 2 years ago, following with no precipitating event. and is worsening. She is s/p multiple surgeries of right hip. Her pain is located in the right abdominal region and is located in the hip area and radiates down the buttock region down to the knee. The pain is described as aching and sharp. The pain intensity is rated 8. The pain is exacerbated by standing and walking and relieved by sitting and resting. Symptoms interfere with physical activity, walking and household cleaning. Obtained by Yolanda Hwang MA by interview I have reviewed, confirmed and edited the preliminary information with the patient: In addition the patient reports no additional concerns. Litigation: No. Prior pain treatment has included physical therapy with partial relief, Completed 11 years ago She had relief from the following interventions: None. ALLERGIES Allergen Reactions - Aspirin Hives, GI Upset - Paper Tape [Other] Rash, Swelling, Itching Area gets very red also - Penicillins Hives Current Medications: Pain medications reviewed and reconciled in the medication list: Yes. Current Outpatient Prescriptions: blood sugar diagnostic (FREESTYLE LITE STRIPS) test strip Use as directed 4 times daily. metFORMIN ER (GLUCOPHAGE XR) 500 mg 24 hr tablet TAKE TWO TABLETS BY MOUTH WITH BREAKFAST AND TWO TABLETS WITH SUPPER liraglutide (VICTOZA 2-WILLIAM) 0.6 mg/0.1 mL (18 mg/3 mL) pnij Inject 1.2 mg subcutaneously once daily. insulin glargine (BASAGLAR KWIKPEN U-100 INSULIN) 100 unit/mL (3 mL) inpn Inject 40 Units subcutaneously daily at bedtime. COMPOUNDED PRESCRIPTION One Touch meter kit. Lancets (ONETOUCH ULTRASOFT LANCETS) lancets Test blood sugar(s) 5 times daily. Dx: Type 2 DM - Controlled E11.9 , Insulin: yes famotidine (PEPCID) 20 mg tablet Take 1 tablet by mouth daily at bedtime. Alcohol Swabs padm Use as directed up to 5 times daily DM: yes Insulin: yes DX: E.11.9 Oral Medication Containers (SHARPS CONTAINER) misc 1 Can twice daily. insulin needles, DISPOSABLE, (PEN NEEDLE) 31 gauge x 5/16 ndle One daily with insulin COMPOUNDED PRESCRIPTION 1 Each as needed. Sharps Container. Dx:Diabetes mellitus, antepartum (648.03) Oral Medication Containers (BD SHARPS PRIVATE BANKER) misc 1 Container as needed (to disopse of insulin needles). Lancets (ONE TOUCH SURESOFT LANCING DEV) lancets Use as instructed meloxicam (MOBIC) 15 mg tablet Take 1 tablet by mouth once daily. X 10 days, then daily as needed with food. pantoprazole DR (PROTONIX) 40 mg tablet Take 1 tablet by mouth once daily. (Patient not taking: Reported on 01/13/2018 ) triamcinolone (KENALOG) 0.025 % cream Apply 1 application to affected area twice daily. (Patient not taking: Reported on 01/13/2018 ) No current facility-administered medications for this visit. PAST MEDICAL HISTORY Diagnosis Date - Anemia WITH 2ND - Asthma since 14 years old, inhaler PRN - Complex ovarian cyst - Needs follow up imaging 06/09/2013 06/09/2013 An ultrasound was done 06/04/2013 that revealed a 6w5d fetus with DELFINA of 01/24/14. There is fluid seen adjacent to the gestastional sac possible subchorionic hemorrhage. the left ovary is within normal limits but the right ovary contains a 3.8 x 3 x 3.3 cm moderately complex cyst. TKRN 01/15/2014 - Confirmed 9 x 7 x 2.5 cm multi-loculated cyst at the time of . Needs outpatient follow up via TVUS. - Congenital hip deformity right - Diabetes, gestational insulin controlled - Family history of defects 06/09/2013 06/09/2013Patient's mother born with spina bifida. Patient's brother born with a hole in his heart. Patient has another brother that was born with Down syndrome. Patient and her brother born with a congenital hip deformity. Patient has had multiple corrective surgeries for the hip deformity.TKRN - Family history of Down syndrome 06/21/2014 Brother with DS - Family history of spina bifida 06/21/2014 Mom with Spina bifida in wheelchair - Gall stones 2007 Gall bladder removed - History of asthma 06/09/2013 06/09/2013Patient has a history of asthma. She uses an albuterol inhaler when necessary. TKRN - History of 06/09/2013 06/09/2013 Pt had 3 previous C sections. - History of kidney stones - Nausea/vomiting in 06/09/2013 06/09/2013She states she has nausea . Advised patient to call/come in if she has persistent vomiting or if her blood sugars were less than 70. TKRN - Ovarian cyst during 07/21/2014 07/21/14: see NT ultrasound: Right ovarian cyst 6cm - Pain in joint, pelvic region and thigh 01/10/2006 - Pancreatitis - Patient requested diagnostic testing 06/09/2013 06/09/2013 Patient desires early screening in with sequential testing. TKRN - depression - Prior macrosomia, antepartum 06/21/2014 - Short interval between pregnancies complicating , antepartum 06/09/2013 06/09/2013Nikki delivered her previous child August 14, 2012.TKRN - Type 2 diabetes mellitus (HCC) 05/22/2013 - Type 2 diabetes mellitus complicating , antepartum 05/28/2013 06/09/2013Nikki has a history of diabetes diagnosed 4 years ago. She was unaware that she was until she went into labor with her first . With her second she started insulin during the second trimester. She was referred to Dr. Tejada at [facility] for poorly controlled diabetes on metformin alone. She has since started insulin and has an appointment today with Dr. Guevara for followup. She has been keeping track of her blood sugars and presents with a journal today and these blood sugars are copy off and given to Dr. Guevara for his review. I have discussed with the patient the importance of good control of her blood sugars during and keeping a blood sugar log for review by the Doctor. She is reminded that she is to send her blood sugars in weekly to Dr. Guevara and she is to call sooner than a week if she has persistently high, greater the 180, or low blood sugars, less than 70. She is provided with a blood sugar log today. She has not had a diabetic foot or eye exam rece PAST SURGICAL HISTORY Procedure Laterality Date - DELIVERY ONLY , low transverse x3 - DELIVERY ONLY 01/19/15 , low transverse - IANDD ABSC; [facility] OR SGL 05/2013 cyst on left upper chest - LAPAROSCOPIC CHOLEYCYSTECTOMY Cholecystectomy, lap - PAST SURGICAL HISTORY OF tubes in ears per Dr Crockett at [facility] - PAST SURGICAL HISTORY OF Tonsils and Adenoids removed per Dr Crockett at [facility] - PAST SURGICAL HISTORY OF [address] Marroquin at [facility] and one by Dr. Camacho in [place] - REMOVAL OF OVARY/TUBE(S) 01/19/15 Salpingo-oophorectomy, right ovarian mass FAMILY HISTORY Problem Relation Age of Onset - Diabetes Mother - Hypertension Mother - other (spina bifida) Mother - Heart Father - Hypertension Father - Cancer Maternal Grandmother - Alcohol/Drug Maternal Grandmother - Heart Paternal Grandmother - Aneurysm Paternal Grandmother - Stroke Brother - other (Down Syndrome) Brother - other (autism) Brother step brother - seizures and cerebral palsy also - other (Open family hx of Neural Tube Defect) Brother Social History: Alcohol Use: No Tobacco Use: Never (mom's fiance smokes outside) Drug Use: No Employer And Job Title: No employer specified ([employer]) Years Of Education Completed: 10 years Marital Status: Single with 2 children REVIEW OF SYSTEMS: Constitutional: (-) Fever (-) Night Sweats (-) Weight Gain (-) Weight Loss (-) Fatigue Cardiovascular: (-) Chest Pain (-) Palpitations (-) Lightheadedness (-) Swelling of Ankles (-) Hx Heart Surgery Respiratory: (-) Shortness of Breath (-) Cough (-) Wheezing (-) Snoring Gastrointestinal: (-) Incontinence (-) Abdominal Pain (-) Diarrhea (-) Constipation (-) Nausea/Vomiting (-) Heart Burn Endocrine: (-) Thyroid Disorder (+) Diabetes Hematologic: (-) Prolonged Bleeding (+) Easy Bruising Genitourinary: (-) Incontinence (-) Frequency (-) Urinary Urgency Skin: (-) Rashes (-) Itching (-) Other Lesions Neurologic: (-) Headache (-) Double Vision (-) Confusion (-) Paralysis (-) Vertigo (-) Syncope Psychiatric: (-) Depression (-) Anxiety (-) Delusions (-) Hallucinations (-) Suicidal Thoughts Yolanda Hwang MA OARRS Report reviewed: Yes Narcotic Agreement reviewed and signed?: N/A Baseline Urine Toxicology obtained: N/A Urine Panel: No results found for: UQCANN, UQBNZL, TSF2AVA, UQAMPH, UQMAMP, UQBUPRE, UQNORBUP, UQMTHD, UQEDDP, UQTRAM, UQDTRM, UQFNTL, UQNFTL, UQCODE, UQMORP, UQDCDN, UQHCOD, UQOXYC, UQHMOR, UQOXYM, UQCREA, UQPH, UQSPGR, UQOXID, UQSPQ The pain panel was N/A I have reviewed, confirmed and edited the preliminary information with the patient: OBJECTIVE: PHYSICAL EXAMINATION: Pulse 92 Wt 290 lb (131.5kg) SpO2 97% General: Well-appearing, alert, in no acute distress Skin: Skin color, texture, turgor normal, no rashes or lesions HEENT: Normocephalic, atraumatic, sclera nonicteric CV: Regular rate and rhythm -Pulses: +2 and equal bilaterally Resp: Breathing unlabored, normal chest excursion. GI: Abdomen soft, not distended nontender Lymphatic:No lymphadema Musculoskeletal Neck: Posture and spinal curves are normal, Supple, normal range of motion, non-tender Back: Posture and spinal curves are normal, normal range of motion without reproducible pain, mild pain to palpation of the lumbar spine , straight leg raising test is negative bilaterally. Mild right PSIS tenderness. Negative sacral thrust. Extremities: Incision over the right lateral hip area was noted. Incisional numbness was noted. Right hip range of motion was limited with particularly the lateral abduction with reproducible hip pain. She also demonstrated tenderness to palpation of the trochanteric tuberosity region. Neurological: Mental Status: Alert and oriented x3, Appropriate to topic Cranial Nerves: 2 through 12 intact Motor Strength:Motor strength and tone are 5/5 throughout Sensory:Sensation was intact to light touch all throughout DTR:Lower extremity reflexes are +2/4 and symmetric Gait: normal Medical record and diagnostic tests reviewed for today's visit: The [facility] EMR was reviewed during the visit IMAGING STUDIES: No new imaging studies were reviewed during this office visit. ASSESSMENT: (M25.551) Pain in right hip (primary encounter diagnosis) (M25.551, G89.29) Chronic pain of right hip Discussion: Discussed options for additional treatment including health promotion/lifestyle modifications, medication management, and additional pain management interventions. We also discussed strategies such as physical or occupational therapy, psychological pain management and surgical options as appropriate. Also a discussion was entertained regarding chronic opioid therapy as it relates to chronic benign pain. A snf use of opioids have generally not been effective in managing chronic benign pain, therefore I do not recommend it. Other factors that may contribute to chronic pain were discussed including smoking, obesity, and a sedentary lifestyle. PLAN: 1. She has had multiple surgeries of the right hip with persistent and worsening pain. X-ray of the right hip was reviewed. A discussion took place regarding the source of pain. We discussed that there may be a multicomponent including soft tissue versus degeneration of the right hip joint. She is scheduled with orthopedic surgery for further evaluation. It is noted that her brother who had similar hip issues underwent hip replacement surgery at young age and is doing quite well. 2. Recommend diagnostic right hip intra-articular injection as a diagnostic and therapeutic approach. Certainly, the goal is to reduce her pain with intra-articular injection if the source of the pain is from the hip socket and not soft tissue that's contributed to her pain. 3. No new medication was started. Again long-term use of the opioids was not recommended. 4. Consider chronic pain rehabilitation program if surgery is not felt to be an option. 5. Follow up:6 months The above plan and management options were discussed with patient. The patient is in agreement with the above and verbalized understanding. I have discussed and confirmed the above treatment plan with the patient. and I have reviewed the nurses notes and I am aware of the family/social history. Albert Landa MD February 17, 2018 cc: Tara Roman APRN.EDUCATIONAL TECHNOLOGY SPECIALIST [address] [facility] [id number] Results of consultation to be transmitted via electronic medical record for those providers who practice within [facility] or with access to iOpener via MD Connect, or via letter. Referring Provider: TARA ROMAN ([facility]) [[id number]] Allergies As of Date: 02/17/2018 Noted Allergy Reaction ASPIRIN 09/18/2005 4 - Hives 8 - GI Upset paper tape [Other] 06/26/2005 2 - Rash 7 - Swelling 9 - Itching Comments: Area gets very red also PENICILLINS 05/11/2013 4 - Hives Date Reviewed: 01/13/2018 Reviewed by: Kip Luevano - Fully Assessed Reason for Visit: New Patient [172] Right Hip Pain [1554] Primary Visit Diagnosis:Pain in right hip [M25.551] Other Visit Diagnosis:Chronic pain of right hip [M25.551, G89.29] Order(s):INJECTION HIP ARTHROGRAM,ANESTH [[id number]] Order #: [id number] Prescriptions as of 02/17/2018 Sig: BLOOD SUGAR DIAGNOSTIC STRIPS Use as directed 4 times daily. METFORMIN ER 500 MG TABLET,EX* TAKE TWO TABLETS BY MOUTH WIT* LIRAGLUTIDE 0.6 MG/0.1 ML (18* Inject 1.2 mg subcutaneously * INSULIN GLARGINE (U-100) 100 * Inject 40 Units subcutaneousl* COMPOUNDED PRESCRIPTION One Touch meter kit. LANCETS Test blood sugar(s) 5 times * FAMOTIDINE 20 MG TABLET Take 1 tablet by mouth daily * ALCOHOL SWABS Use as directed up to 5 times* EMPTY CONTAINER 1 Can twice daily. PEN NEEDLE, DIABETIC 31 GAUGE* One daily with insulin COMPOUNDED PRESCRIPTION 1 Each as needed. Sharps Cont* EMPTY CONTAINER 1 Container as needed (to dis* LANCETS Use as instructed MELOXICAM 15 MG TABLET Take 1 tablet by mouth once d* PANTOPRAZOLE 40 MG TABLET,DEL* Take 1 tablet by mouth once d* Patient not taking: Reported on 01/13/2018 TRIAMCINOLONE ACETONIDE 0.025* Apply 1 application to affect* Patient not taking: Reported on 01/13/2018 Problem List As Of Date 02/17/2018 Noted Resolved Type 2 diabetes mellitus (HCC) [E11.9] INVALID FOR* More... More... More... Obesity, unspecified [E66.9] INVALID FOR* More... History of flank pain [Z87.898] INVALID FOR*06/21/2014 More... More... More... History of depression [Z86.59] INVALID FOR* More... More... More... More... More... More... More... Depression [F32.9] INVALID FOR* Pain in right hip [M25.551] INVALID FOR* More... Chronic pain of right hip [M25.551, G89.29] INVALID FOR* More... Encounter Status:Closed by ALBERT LANDA MD on 02/17/18 HOSP Observed: 02/17/2018 Status: COMPLETED Source: [place] 12:00 AM [facility] REPOSITORY Patient:Mirza Daigle MRN: <[id number]> Height:5' 6.929(1.7 m) Weight:291 lb 0.1 oz (132 kg) Outpatient Medications as of 03/06/18: meloxicam (MOBIC) [address] (PROTONIX) 40 mg tablet blood sugar diagnostic (FREESTYLE LITE STRIPS) test strip metFORMIN ER (GLUCOPHAGE XR) 500 mg 24 hr tablet liraglutide (VICTOZA 2-WILLIAM) 0.6 mg/0.1 mL (18 mg/3 mL) pnij insulin glargine (BASAGLAR KWIKPEN U-100 INSULIN) 100 unit/mL (3 mL) inpn COMPOUNDED PRESCRIPTION Lancets (ONETOUCH ULTRASOFT LANCETS) lancets famotidine (PEPCID) 20 mg tablet Alcohol Swabs padm Oral Medication Containers (SHARPS CONTAINER) [facility] insulin needles, DISPOSABLE, (PEN NEEDLE) 31 gauge x 5/16 ndle COMPOUNDED PRESCRIPTION Oral Medication Containers (BD SHARPS PRIVATE BANKER) [facility] Lancets (ONE TOUCH SURESOFT LANCING DEV) lancets Admission/Clinic Administered Medications as of 03/06/18: NaCl 0.9% iv infusion Problem List: Type 2 diabetes mellitus (HCC) [E11.9] Obesity, unspecified [E66.9] History of depression [Z86.59] Depression [F32.9] Pain in right hip [M25.551] Chronic pain of right hip [M25.551, G89.29] Allergies: Aspirin paper tape [Other] Penicillins Date Verified: 03/06/18 Lab Values Lab Value Units Date High Low POTA* 4.0 mmol/L 03/04/2018 5.1 3.7 TAMMY* 43.3 % 03/04/2018 46.0 36.0 Progress Notes ([facility]): Jeannette Olmstead RN 03/03/2018 2:54 PM Signed PRIMARY CARE COORDINATION QUICK NOTE Provider Action/FYI: Please file lab orders for which pt is due. Patient identified by name and date . Pt is due for labs and having procedure by Dr. Landa next week. Would like to do them either prior to or same day. Having trouble with her BS meter, says needs battery but has tried new one, without success. Freestyle Dixon Lite. Hasn't checked for 2 days. No BS above 195, per pt. days ago. Will come in tomorrow for labs. Has hip injection planned for this week and seeing Dr Barney next week for complicated hip problems and poss THR. She is unable to go to basement, is sleeping in recliner as she is unable to lay in bed. Constant pain. Previous Version Progress Notes ([facility]): Nancy Mary 02/18/2018 11:26 AM Signed Attempted to contact patient multiple times to discuss injection scheduled 03/06/18 and number is not in service, message is call rejected every attempt. P PROGRESS Observed: 02/05/2018 Status: COMPLETED Source: [place] 5:[address] [facility] REPOSITORY HNO ID: [id number] Author: Jeannette Bill Service: (none) Author Type: Registered Nurse Type: Progress Notes Filed: 02/07/2018 6:01 PM Note Text: Obtained Rx and gave to pt myself. PROGRESS Observed: 02/05/2018 Status: COMPLETED Source: [place] 1:15 PM [facility] [place] REPOSITORY HNO ID: [id number] Author: Jeannette Bill Service: (none) Author Type: Registered Nurse Type: Progress Notes Filed: 02/07/2018 6:01 PM Note Text: PRIMARY CARE COORDINATION FOLLOW-UP NOTE Provider Action/FYI: Pt with congenital hip malformation, numerous surgeries as child. May require replacement. I stressed weight loss with her. Can she have short term bedtime Patient identified by name and date of . YES Spoke to patient Summary: Pt has a congenital hip malformation on which she has had several surgeries as a child. It is causing her a great deal of pain. She saw Dr Luevano but he referred her to [facility] for reconstructive surgery. She has an appt with Dr Landa in 2wks but she says she can barely walk even with a cane. Rec'd Vicodin from ER which helped her sleep for a few hrs. Tramadol and NSAIDSs do not help. Can she have something to take short term to help her at least get some sleep. She is becoming depressed and frustrated with it. Concerns: Pt is not an historic drug abuser so doubt dependency issues for short term use of narcotics. [employer] Art[employer] plan for next outreach: Will follow up with Dr Wells's [facility]. Signature Jeannette Bill RN Ambulatory Postpartum Rn Internal Medicine [facility] February 05, 2018 LAITOUTRARACELICH Observed: 02/05/2018 Status: COMPLETED Source: [place] 12:[address] [facility] REPOSITORY Patient Outreach (INTMWS) MIRZA DAIGLE ([id number]) 1990 F Date Time Provider Department 02/05/18 JEANNETTE BUSBY During your visit today, we recorded the following information about you: Jeannette Olmstead RN 02/07/2018 6:01 PM Signed PRIMARY CARE COORDINATION FOLLOW-UP NOTE Provider Action/FYI: Pt with congenital hip malformation, numerous surgeries as child. May require replacement. I stressed weight loss with her. Can she have short term bedtime Patient identified by name and date of . YES Spoke to patient Summary: Pt has a congenital hip malformation on which she has had several surgeries as a child. It is causing her a great deal of pain. She saw Dr Luevano but he referred her to [facility] for reconstructive surgery. She has an appt with Dr Landa in 2wks but she says she can barely walk even with a cane. Rec'd Vicodin from ER which helped her sleep for a few hrs. Tramadol and NSAIDSs do not help. Can she have something to take short term to help her at least get some sleep. She is becoming depressed and frustrated with it. Concerns: Pt is not an historic drug abuser so doubt dependency issues for short term use of narcotics. [employer] plan for next outreach: Will follow up with Dr Wells's [facility]. Signature Jeannette Bill RN Ambulatory Postpartum Rn Internal Medicine [facility] February 05, 2018 Jeannette Olmstead RN 02/07/2018 6:01 PM Signed Obtained Rx and gave to pt myself. Allergies As of Date: 02/05/2018 Noted Allergy Reaction ASPIRIN 09/18/2005 4 - Hives 8 - GI Upset paper tape [Other] 06/26/2005 2 - Rash 7 - Swelling 9 - Itching Comments: Area gets very red also PENICILLINS 05/11/2013 4 - Hives Date Reviewed: 01/13/2018 Reviewed by: Kip Luevano - Fully Assessed Reason for Visit: Postpartum Rn Chronic Care [9332] Primary Visit Diagnosis:Pain of right hip joint [M25.551] Order(s):HYDROcodone-acetaminophen (NORCO) 5-325 mg per tabletTake 1 tablet by mouth every 6 hours as needed for Pain for up to 7 days.Disp: 21 tabletRfl: 0 Prescriptions as of 02/05/2018 Sig: HYDROCODONE 5 MG-ACETAMINOPHE* Take 1 tablet by mouth every * MELOXICAM 15 MG TABLET Take 1 tablet by mouth once d* PANTOPRAZOLE 40 MG TABLET,DEL* Take 1 tablet by mouth once d* Patient not taking: Reported on 01/13/2018 BLOOD SUGAR DIAGNOSTIC STRIPS Use as directed 4 times daily. TRIAMCINOLONE ACETONIDE 0.025* Apply 1 application to affect* Patient not taking: Reported on 01/13/2018 METFORMIN ER 500 MG TABLET,EX* TAKE TWO TABLETS BY MOUTH WIT* LIRAGLUTIDE 0.6 MG/0.1 ML (18* Inject 1.2 mg subcutaneously * INSULIN GLARGINE (U-100) 100 * Inject 40 Units subcutaneousl* COMPOUNDED PRESCRIPTION One Touch meter kit. LANCETS Test blood sugar(s) 5 times * FAMOTIDINE 20 MG TABLET Take 1 tablet by mouth daily * ALCOHOL SWABS Use as directed up to 5 times* EMPTY CONTAINER 1 Can twice daily. PEN NEEDLE, DIABETIC 31 GAUGE* One daily with insulin COMPOUNDED PRESCRIPTION 1 Each as needed. Sharps Cont* EMPTY CONTAINER 1 Container as needed (to dis* LANCETS Use as instructed Problem List As Of Date 02/05/2018 Noted Resolved Type 2 diabetes mellitus (HCC) [E11.9] INVALID FOR* More... More... More... Obesity, unspecified [E66.9] INVALID FOR* More... History of flank pain [Z87.898] INVALID FOR*06/21/2014 More... More... More... History of depression [Z86.59] INVALID FOR* More... More... More... More... More... More... More... Depression [F32.9] INVALID FOR* Prescriptions ordered this encounter Disp Refills Start End HYDROCODONE 5 MG-ACETAMINOPHEN 325 M* 21 t* 0 02/05/2018 02/12/2018 Class: Print RX Route: ORAL Sig: Take 1 tablet by mouth every 6 hours as needed for Pain for up to 7 days. Encounter Status:Closed by JEANNETTE BILL on 02/07/18 PROGRESS Observed: 01/30/2018 Status: COMPLETED Source: [place] 3:[address] [facility] REPOSITORY O ID: [id number] Author: Jeannette Bill Service: (none) Author Type: Registered Nurse Type: Progress Notes Filed: 01/30/2018 6:03 PM Note Text: PRIMARY CARE COORDINATION FOLLOW-UP NOTE Provider Action/FYI: Discussed weight loss and diabetic management. Agreed to work on losing 5# in Feb. Patient identified by name and date of . YES Spoke to patient Summary: Sugars running below 200 lately for past month. She didn't have insurance for a couple months but does again now and refilled her meds. Her last A1c in November was 7.3. Her weight, unfortunately seems to be at an all-time high at almost 290. I talked to her at length about importance of weight and diabetic management to help her hip. I explained that they would not likely even consider hip surgery if her A1c is not controlled and her weight needs to be less for hip surgery to be successful. C/O hip pain and knee giving out because of hip. I think it is more likely due to weight. She understands and says she's been trying for the past couple days. Enc tighter carb control and more generous vegetables, etc. She understands but didn't offer any feedback besides I'll try. She agreed to try to lose 5# by 03/03. Concerns: Pt's is also grossly obese as are her family members and I'm afraid she just accepts her weight as the way we all are. Her mother was on the hospital this summer when pt got because of a massive cellulitis of her back. Will continue to educate her and encourage her. She has a tendency to say what she feels others want to hear. [employer] plan for next outreach: Will follow up in 2 wks to see how she is progressing. Signature Jeannette Bill RN Ambulatory Postpartum Rn Internal Medicine [facility] January 30, 2018 JUNAID Observed: 01/30/2018 Status: COMPLETED Source: [place] 12:[address] [facility] REPOSIT[facility] Patient Outreach (INTMWS) MIRZA DAIGLE ([id number]) 1990 F Date Time Provider Department 01/30/18 JEANNETTE BUSBY During your visit today, we recorded the following information about you: Jeannette Olmstead RN 01/30/2018 6:03 PM Signed PRIMARY CARE COORDINATION FOLLOW-UP NOTE Provider Action/FYI: Discussed weight loss and diabetic management. Agreed to work on losing 5# in Feb. Patient identified by name and date of . YES Spoke to patient Summary: Sugars running below 200 lately for past month. She didn't have insurance for a couple months but does again now and refilled her meds. Her last A1c in November was 7.3. Her weight, unfortunately seems to be at an all-time high at almost 290. I talked to her at length about importance of weight and diabetic management to help her hip. I explained that they would not likely even consider hip surgery if her A1c is not controlled and her weight needs to be less for hip surgery to be successful. C/O hip pain and knee giving out because of hip. I think it is more likely due to weight. She understands and says she's been trying for the past couple days. Enc tighter carb control and more generous vegetables, etc. She understands but didn't offer any feedback besides I'll try. She agreed to try to lose 5# by 03/03. Concerns: Pt's is also grossly obese as are her family members and I'm afraid she just accepts her weight as the way we all are. Her mother was on the hospital this summer when pt got because of a massive cellulitis of her back. Will continue to educate her and encourage her. She has a tendency to say what she feels others want to hear. [employer] plan for next outreach: Will follow up in 2 wks to see how she is progressing. Signature Jeannette Bill RN Ambulatory Postpartum Rn Internal Medicine [place] [facility] January 30, 2018 Allergies As of Date: 01/30/2018 Noted Allergy Reaction ASPIRIN 09/18/2005 4 - Hives 8 - GI Upset paper tape [Other] 06/26/2005 2 - Rash 7 - Swelling 9 - Itching Comments: Area gets very red also PENICILLINS 05/11/2013 4 - Hives Date Reviewed: 01/13/2018 Reviewed by: Kip Luevano - Fully Assessed Reason for Visit: Postpartum Rn Chronic Care [4999] Prescriptions as of 01/30/2018 Sig: MELOXICAM 15 MG TABLET Take 1 tablet by mouth once d* PANTOPRAZOLE 40 MG TABLET,DEL* Take 1 tablet by mouth once d* Patient not taking: Reported on 01/13/2018 BLOOD SUGAR DIAGNOSTIC STRIPS Use as directed 4 times daily. TRIAMCINOLONE ACETONIDE 0.025* Apply 1 application to affect* Patient not taking: Reported on 01/13/2018 METFORMIN ER 500 MG TABLET,EX* TAKE TWO TABLETS BY MOUTH WIT* LIRAGLUTIDE 0.6 MG/0.1 ML (18* Inject 1.2 mg subcutaneously * INSULIN GLARGINE (U-100) 100 * Inject 40 Units subcutaneousl* COMPOUNDED PRESCRIPTION One Touch meter kit. LANCETS Test blood sugar(s) 5 times * FAMOTIDINE 20 MG TABLET Take 1 tablet by mouth daily * ALCOHOL SWABS Use as directed up to 5 times* EMPTY CONTAINER 1 Can twice daily. PEN NEEDLE, DIABETIC 31 GAUGE* One daily with insulin COMPOUNDED PRESCRIPTION 1 Each as needed. Sharps Cont* EMPTY CONTAINER 1 Container as needed (to dis* LANCETS Use as instructed Problem List As Of Date 01/30/2018 Noted Resolved Type 2 diabetes mellitus (HCC) [E11.9] INVALID FOR* More... More... More... Obesity, unspecified [E66.9] INVALID FOR* More... History of flank pain [Z87.898] INVALID FOR*06/21/2014 More... More... More... History of depression [Z86.59] INVALID FOR* More... More... More... More... More... More... More... Depression [F32.9] INVALID FOR* Encounter Status:Closed by JEANNETTE BILL on 01/30/18 EMERGENCY DEPARTMENT Observed: 01/29/2018 Status: F Source: [place] SUMMARY 1:43 AM [facility] Medical Records Department [address] [place] [address] Emergency Department Summary 01/28/182053 MR#: [id number] Acct: [id number] Name: MIRZA DAIGLE Rep #: [id number] : 1990 27 From: Rickey Gu MD PCP: Sunny Wells MD Status: DEP ER - ER Visit Summary Date of Service: 01/28/18 Chief Complaint: Right hip pain History of Present Illness: The patient is a [address] Luevano. She reports that she has had 6 surgeries on her right hip for hip dysplasia. States that she fell 2 days ago and injured her right hip. She has sharp pains 10 out of 10 with walking and is unrelieved by tramadol and ibuprofen. She denies any paresthesias or weakness. No other injuries. She reports she is scheduled for pain management at [facility] February 17. She is unsure of this physician's name. She does report that this is for chronic hip pain. Physical Examination: Vitals: Stable. Afebrile. Neck: No vertebral tenderness. Full ROM without difficulty. Cleared by NEXUS criteria. Back: No vertebral tenderness. General: A AND O x 3. NAD. Cardiovascular exam: Regular rate and rhythm, no murmur, rub or gallop. Respiratory exam: Chest nontender. No crepitus. Clear to auscultation bilaterally. No wheezes or stridor. Abdominal exam: Soft, nontender, nondistended, normal bowel sounds. No pain in RUQ or LUQ specifically. No peritoneal signs. Extremity: Mild tenderness palpation is diffuse over her greater trochanter and proximal femur. She is neurovascular intact distally. Test Results: Pelvis x-ray and right femur x-ray shows chronic changes with no acute fracture. Emergency Department Course and Treatment: Patient was treated with [place]. Treatment Plan: Had a prolonged discussion the patient at this time I do not feel that putting her on further opiate medications are indicated as this is chronic pain. She is instructed to continue her ibuprofen and tramadol. Follow-up with Dr. Luevano 3-5 days if not improving. Follow-up pain management as soon as possible. Disposition: To home in improved and stable condition. Impression: 1. Acute on chronic right hip pain. This note was generated with [employer] dictation software. It may contain incorrect words, spelling, and punctuation that were not noted in review of the chart prior to signing ED Disposition - Plan for ED Patient: Disposition: Home or Assisted Living Chief Complaint: Lower Extremity Injury Instructions: ED Chronic Pain Management Referrals: Sunny Wells MD [Primary Care Provider] - Kip Luevano MD [STAFF PHYSICIAN] - 3-5 Days if not improving What to do if you have Problems For any increased pain, shortness of breath, bleeding, nausea or vomiting, chest pain, or any unexpected problems, contact your Primary Care Provider. Call [employer] [facility] ([phone]) or report to the closest Emergency Room. Call 911 if necessary. 01/29/18 0143 <Electronically signed by Rickey Gu MD> Date Rickey Doherty Signature (If Indicated): Date CC: Sunny Wells MD FEMUR MIN 2 VIEWS Observed: 01/28/2018 Status: F Source: [place] 7:49 PM [facility] Imaging Services [address] [place] [address] Femur Min 2 Views MR#: [id number] Acct: [id number] Name: MIRZA DAIGLE Rep #: [id number] : 1990 F 27 From: Claude Gómez DO PCP: Sunny Wells MD Status: REG ER Study: Femur Min 2 Views Date of Exam: 01/28/18 Exam# [id number] Ordering Dr: Rickey Gu MD STUDY: X-RAY - RIGHT FEMUR REASON FOR STUDY: Female, 27 years old. Right hip pain. History of C6 hip surgeries and history of hip dysplasia. TECHNIQUE: Radiological exam, femur, minimum 2 views COMPARISON: Pelvis, January 28, 2018. FINDINGS: There is marked abnormality of the proximal femur with markedly shortened femoral neck. There is no evidence of fracture. The femoral shaft demonstrates evidence of prior healed fractures and lucencies suggesting prior plating. There are degenerative changes of the right hip and knee. Normal visualized soft tissue structure. RAD/Femur Min 2 Views IMPRESSION: Abdomen of the proximal femur suggesting old fractures. There is no acute fracture or dislocation Electronically Signed: Claude Gómez DO at 20:45 EDT Tel [phone], Service support , CC: Sunny Wells MD; Rickey Gu MD Plastic Card Grader Cardroom: Signed PELVIS 1 OR 2 VIEWS Observed: 01/28/2018 Status: F Source: [place] 7:49 PM [facility] Imaging Services [address] [place] [address] Pelvis 1 or 2 Views MR#: [id number] Acct: [id number] Name: MIRZA DAIGLE Rep #: [id number] : 1990 F 27 From: Claude Gómez DO PCP: Sunny Wells MD Status: REG ER Study: Pelvis 1 or 2 Views Date of Exam: 01/28/18 Exam# [id number] Ordering Dr: Rickey Gu MD STUDY: X-RAY - PELVIS REASON FOR EXAM: Female, 27 years old. Right hip pain. History of multiple surgeries with hip dysplasia. TECHNIQUE: One view of the pelvis was obtained. COMPARISON: Right femur, January 28, 2018. Pelvis, August 10, 2013. FINDINGS: There is a non-specific bowel gas pattern. Normal visualized soft tissue structures. Normal bilateral iliac wings, sacroiliac joints and visualized sacrum. Normal visualized bilateral superior and inferior pubic rami. Normal pubic symphysis. Normal ischial tuberosities. There is abnormality of the proximal femur with shortening of femoral neck. This appears unchanged from prior study. There is no acute fracture. Normal right acetabulum. Normal right hip joint. Normal visualized left femoral head. Normal left acetabulum. Normal left hip joint. RAD/Pelvis 1 or 2 Views IMPRESSION: Abnormality of the proximal right femur. Question remote fracture. Electronically Signed: Claude Gómez DO at 20:46 EDT Tel [phone], Service support , CC: Sunny Wells MD; Rickey Gu MD Plastic Card Grader Cardroom: Signed PROGRESS Observed: 01/13/2018 Status: COMPLETED Source: [place] 2:08 PM [facility] [place] REPOSITORY HNO ID: [id number] Author: Kip Luevano Service: (none) Author Type: Physician Type: Progress Notes Filed: 01/31/2018 6:25 AM Note Text: Kip Luevano MD Department of Orthopaedics Orthopaedics [address] [place] [address] Dept: [phone] Dept January 13, 2018 CHIEF COMPLAINT: New Patient (right hip pain, xray 11-11-17 REF: Tara Roman) HPI: Ms. Mirza Daigle is a 27 year old female who presents with worsening pain in the right hip over the past 3 years. She has had multiple hip surgeries Stephon 6 which she recalls, mostly done at [facility] for originally SCFE, corrective osteotomies, possible infection and then ultimately removal of hardware. She been having much more troubles with the hip with locking and catching. She states she's tried anti-inflammatories as well as some low pain medications and not helping. She reports her hip dislocating and it's causing her to fall number of times. She has not confident in the leg. Pain is through the groin to the lateral hip and into the buttocks. 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 With the deformity of the proximal femur and short neck, dysplastic hip, etc. the challenges of the hip anatomy her one thing. She is also significantly obese. Her young age as well contributes to her limited options with the hip. Overall, her joint space looks relatively preserved, but certainly getting symptoms from the hip joint. I will have to defer her care to one of our adult reconstruction colleagues to either help troubleshoot or even offer operative or nonoperative options to her. The complexity of her specifics are certainly well out of my area of expertise. We'll try to help coordinate follow-up with adult recon. FOLLOW UP INSTRUCTIONS: As above Ms. Mirza Daigle was advised as to contrast therapies and/or to take analgesics/anti-inflammatories as needed and all contraindications were reviewed. OBJECTIVE: Ms. Mirza Daigle is a pleasant 27 year old in no apparent distress. Gen:BP 110/74[manual[ Pulse 100[apical regular[ Ht 5' 7 (1.70m) Wt 287 lb 12.8 oz (130.5kg) LMP 01/11/2018 BMI 45.07 kg/(m2). nl development, Morbidly obese, no deformities ENT: Normocephalic, normal hearing, moist mucosa CV: Pulses:DP/PT= 2+ and symmetric, capillary refill < 2 secs, no peripheral edema/varicosities Skin: no rash, bruising or lesions. Good turgor. Psych: cooperative and appropriate, alert and oriented x 3, good mood and affect. Musculoskeletal: Patient walks with an antalgic gait. She has limited flexion of only 90? limited by pain. Internal rotation is likewise limited to about 15?, external to 25?. Body habitus makes much of her exam quite difficult. Neurologic exam is intact throughout the lower extremity. IMAGING: IMPRESSION: Remote deformity and postsurgical changes of the right proximal femur. ?Right hip grossly maintained. Plastic Card Grader Cardroom: XIAO ? Transcribe Date/Time: Nov 12 2017 10:21P Dictated by : CAROLYN TREVINO MD This examination was interpreted and the report reviewed and electronically signed by: CAROLYN TREVINO MD on Nov 12 2017 10:23PM ?EST Results-Findings * * *Final Report* * * DATE OF EXAM: Nov 11 2017 ?2:56PM ? WRX ? 5352 ?- ?XR HIP 3V PELV+ AP/LAT RT ?/ PROCEDURE REASON: Pain in right hip ?? ? * * * * Physician Interpretation * * * * ?HISTORY: ?Hx of 6 hip surgeries. Right hip dislocating and poping causing pain x 2 months.. ?Pain in right hip ? . TECHNIQUE: XR HIP 3V PELV+ AP/LAT RT ?? Laterality: ?RIGHT ?? Number of different views (projections): 3 COMPARISON: None RESULT: Remote deformity of the proximal femur including the femoral head neck and proximal shaft. ?Otherwise there is no acute fracture identified. ? The right hip is grossly maintained. The bony pelvis is unremarkable. ?The left hip is normal. Supporting Subjective Information Below: Past Medical History: PAST MEDICAL HISTORY Diagnosis Date - Anemia WITH 2ND - Asthma since 14 years old, inhaler PRN - Complex ovarian cyst - Needs follow up imaging 06/09/2013 06/09/2013 An ultrasound was done 06/04/2013 that revealed a 6w5d fetus with DELFINA of 01/24/14. There is fluid seen adjacent to the gestastional sac possible subchorionic hemorrhage. the left ovary is within normal limits but the right ovary contains a 3.8 x 3 x 3.3 cm moderately complex cyst. TKRN 01/15/2014 - Confirmed 9 x 7 x 2.5 cm multi-loculated cyst at the time of . Needs outpatient follow up via [facility]. - Congenital hip deformity right - Diabetes, gestational insulin controlled - Family history of defects 06/09/2013 06/09/2013Patient's mother born with spina bifida. Patient's brother born with a hole in his heart. Patient has another brother that was born with Down syndrome. Patient and her brother born with a congenital hip deformity. Patient has had multiple corrective surgeries for the hip deformity.TKRN - Family history of Down syndrome 06/21/2014 Brother with DS - Family history of spina bifida 06/21/2014 Mom with Spina bifida in wheelchair - Gall stones 2007 Gall bladder removed - History of asthma 06/09/2013 06/09/2013Patient has a history of asthma. She uses an albuterol inhaler when necessary. TKRN - History of 06/09/2013 06/09/2013 Pt had 3 previous C sections. - History of kidney stones - Nausea/vomiting in 06/09/2013 06/09/2013She states she has nausea . Advised patient to call/come in if she has persistent vomiting or if her blood sugars were less than 70. TKRN - Ovarian cyst during 07/21/2014 07/21/14: see NT ultrasound: Right ovarian cyst 6cm - Pain in joint, pelvic region and thigh 01/10/2006 - Pancreatitis - Patient requested diagnostic testing 06/09/2013 06/09/2013 Patient desires early screening in with sequential testing. TKRN - depression - Prior macrosomia, antepartum 06/21/2014 - Short interval between pregnancies complicating , antepartum 06/09/2013 06/09/2013Nikki delivered her previous child August 14, 2012.TKRN - Type 2 diabetes mellitus (HCC) 05/22/2013 - Type 2 diabetes mellitus complicating , antepartum 05/28/2013 06/09/2013Nikki has a history of diabetes diagnosed 4 years ago. She was unaware that she was until she went into labor with her first . With her second she started insulin during the second trimester. She was referred to Dr. Tejada at [facility] for poorly controlled diabetes on metformin alone. She has since started insulin and has an appointment today with Dr. Guevara for followup. She has been keeping track of her blood sugars and presents with a journal today and these blood sugars are copy off and given to Dr. Guevara for his review. I have discussed with the patient the importance of good control of her blood sugars during and keeping a blood sugar log for review by the Doctor. She is reminded that she is to send her blood sugars in weekly to Dr. Guevara and she is to call sooner than a week if she has persistently high, greater the 180, or low blood sugars, less than 70. She is provided with a blood sugar log today. She has not had a diabetic foot or eye exam rece Past Surgical History: PAST SURGICAL HISTORY Procedure Laterality Date - DELIVERY ONLY , low transverse x3 - DELIVERY ONLY 01/19/15 , low transverse - IANDD ABSC; [facility] OR SGL 05/2013 cyst on left upper chest - LAPAROSCOPIC CHOLEYCYSTECTOMY Cholecystectomy, lap - PAST SURGICAL HISTORY OF tubes in ears per Dr Crockett at [facility] - PAST SURGICAL HISTORY OF Tonsils and Adenoids removed per Dr Crockett at [facility] - PAST SURGICAL HISTORY OF [address] Marroquin at [facility] and one by Dr. Camacho in [place] - REMOVAL OF OVARY/TUBE(S) 01/19/15 Salpingo-oophorectomy, right ovarian mass Family History: FAMILY HISTORY Problem Relation Age of Onset - Diabetes Mother - Hypertension Mother - other (spina bifida) Mother - Heart Father - Hypertension Father - Cancer Maternal Grandmother - Alcohol/Drug Maternal Grandmother - Heart Paternal Grandmother - Aneurysm Paternal Grandmother - Stroke Brother - other (Down Syndrome) Brother - other (autism) Brother step brother - seizures and cerebral palsy also - other (Open family hx of Neural Tube Defect) Brother Social History:Social History Marital status: Single Spouse name: Years of education: 10 Number of children: 2 Occupational History Occupation Employer Comment [employer]OMEMAK[employer] Social History Main Topics Smoking status: Never Smoker Smokeless tobacco: Never Used Comment: mom's fiance smokes outside Alcohol use: No Drug use: No Sexual activity: Yes Partners with: Male Medications: Current Outpatient Prescriptions: meloxicam (MOBIC) 15 mg tablet Take 1 tablet by mouth once daily. X 10 days, then daily as needed with food. blood sugar diagnostic (FREESTYLE LITE STRIPS) test strip Use as directed 4 times daily. metFORMIN ER (GLUCOPHAGE XR) 500 mg 24 hr tablet TAKE TWO TABLETS BY MOUTH WITH BREAKFAST AND TWO TABLETS WITH SUPPER liraglutide (VICTOZA 2-WILLIAM) 0.6 mg/0.1 mL (18 mg/3 mL) pnij Inject 1.2 mg subcutaneously once daily. insulin glargine (BASAGLAR KWIKPEN U-100 INSULIN) 100 unit/mL (3 mL) inpn Inject 40 Units subcutaneously daily at bedtime. COMPOUNDED PRESCRIPTION One Touch meter kit. Lancets (ONETOUCH ULTRASOFT LANCETS) lancets Test blood sugar(s) 5 times daily. Dx: Type 2 DM - Controlled E11.9 , Insulin: yes famotidine (PEPCID) 20 mg tablet Take 1 tablet by mouth daily at bedtime. Alcohol Swabs padm Use as directed up to 5 times daily DM: yes Insulin: yes DX: E.11.9 insulin needles, DISPOSABLE, (PEN NEEDLE) 31 gauge x 5/16 ndle One daily with insulin COMPOUNDED PRESCRIPTION 1 Each as needed. Sharps Container. Dx:Diabetes mellitus, antepartum (648.03) Lancets (ONE TOUCH SURESOFT LANCING DEV) lancets Use as instructed pantoprazole DR (PROTONIX) 40 mg tablet Take 1 tablet by mouth once daily. (Patient not taking: Reported on 01/13/2018 ) triamcinolone (KENALOG) 0.025 % cream Apply 1 application to affected area twice daily. (Patient not taking: Reported on 01/13/2018 ) Oral Medication Containers (SHARPS CONTAINER) misc 1 Can twice daily. Oral Medication Containers (BD SHARPS PRIVATE BANKER) misc 1 Container as needed (to disopse of insulin needles). No current facility-administered medications for this visit. Allergies: Aspirin; Paper Tape [Other]; Penicillins ROS: General (negative for fatigue, malaise, weight loss/gain) HEENT (negative for headache, earache, recent vision changes, sinus pain, sore throat) Respiratory (no recent shortness of breath, hemoptysis) CV (negative for chest tightness, palpitations) Musculoskeletal (see HPI) Psych (no depression, anxiety) REFERRING PHYSICIAN: Ms. Mirza Daigle was referred to me for consultation by the following physician. This consultation note will be sent to the following physician by either mail or electronic medical record. Tara Roman APRN.EDUCATIONAL TECHNOLOGY SPECIALIST [address] [facility] [address] SUNNY WELLS MD [address] [facility] [id number] This note was partially generated using [employer] voice recognition system, and there may be some incorrect words, spellings, and punctuation that were not noted in checking the note before saving. Kip Luevano MD PROGRESS Observed: 01/13/2018 Status: COMPLETED Source: [place] 1:27 PM [facility] [place] REPOSITORY [facility] ID: [id number] Author: Cyn Jimenez RN Service: (none) Author Type: (none) Type: Progress Notes Filed: 01/31/2018 6:25 AM Note Text: AMB ROOMING INTAKE FLOWSHEET DATA Risk Screening Do you have concerns about personal safety or safety in the home?: No Pain Pain Location: Hip-Right Description: Sharp Duration Amount of Time: 3 Duration Units: Years Frequency: Continuous Intervention: Medication, Cold, Heat Patient presents with: New Patient: right hip pain, xray 11-11-17 REF: Tara Roman Pt. presents with 6 right hip surgeries, most done at [facility] and no records available from these surgeries. She states she has had more severe pain since last childbirth 3 years ago. She has tried meloxicam and tramadol without relief. She states her hip dislocates on her and she has fallen numerous times because of this. she has lateral hip pain and pain in the buttock. CNOV Observed: 01/13/2018 Status: COMPLETED Source: [place] 12:[address] [facility] REPOSITORY Office Visit (ORTHWS) MIRZA DAIGLE ([id number]) 1990 F Date Time Provider Department 01/13/18 12:55 PM KIP LUEVANO During your visit today, we recorded the following information about you: Pulse Blood pressure Weight Height 100/minute 110/74 130.5 kg 1.702 m Last Period 01/11/18 Cyn Jimenez RN 01/31/2018 6:25 AM Signed AMB ROOMING INTAKE FLOWSHEET DATA Risk Screening Do you have concerns about personal safety or safety in the home?: No Pain Pain Location: Hip-Right Description: Sharp Duration Amount of Time: 3 Duration Units: Years Frequency: Continuous Intervention: Medication, Cold, Heat Patient presents with: New Patient: right hip pain, xray 11-11-17 REF: Tara Roman Pt. presents with 6 right hip surgeries, most done at [facility] and no records available from these surgeries. She states she has had more severe pain since last childbirth 3 years ago. She has tried meloxicam and tramadol without relief. She states her hip dislocates on her and she has fallen numerous times because of this. she has lateral hip pain and pain in the buttock. Kip Luevano MD 01/31/2018 6:25 AM Signed Kip Luevano MD Department of Orthopaedics Orthopaedics [facility] [address] [facility] [address] Dept: [phone] Dept January 13, 2018 CHIEF COMPLAINT: New Patient (right hip pain, xray 11-11-17 REF: Tara Roman) HPI: Ms. Mirza Daigle is a 27 year old female who presents with worsening pain in the right hip over the past 3 years. She has had multiple hip surgeries Stephon 6 which she recalls, mostly done at [facility] for originally SCFE, corrective osteotomies, possible infection and then ultimately removal of hardware. She been having much more troubles with the hip with locking and catching. She states she's tried anti-inflammatories as well as some low pain medications and not helping. She reports her hip dislocating and it's causing her to fall number of times. She has not confident in the leg. Pain is through the groin to the lateral hip and into the buttocks. 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 With the deformity of the proximal femur and short neck, dysplastic hip, etc. the challenges of the hip anatomy her one thing. She is also significantly obese. Her young age as well contributes to her limited options with the hip. Overall, her joint space looks relatively preserved, but certainly getting symptoms from the hip joint. I will have to defer her care to one of our adult reconstruction colleagues to either help troubleshoot or even offer operative or nonoperative options to her. The complexity of her specifics are certainly well out of my area of expertise. We'll try to help coordinate follow-up with adult recon. FOLLOW UP INSTRUCTIONS: As above Ms. Mirza Daigle was advised as to contrast therapies and/or to take analgesics/anti-inflammatories as needed and all contraindications were reviewed. OBJECTIVE: Ms. Mirza Daigle is a pleasant 27 year old in no apparent distress. Gen:BP 110/74[manual[ Pulse 100[apical regular[ Ht 5' 7 (1.70m) Wt 287 lb 12.8 oz (130.5kg) LMP 01/11/2018 BMI 45.07 kg/(m2). nl development, Morbidly obese, no deformities ENT: Normocephalic, normal hearing, moist mucosa CV: Pulses:DP/PT= 2+ and symmetric, capillary refill < 2 secs, no peripheral edema/varicosities Skin: no rash, bruising or lesions. Good turgor. Psych: cooperative and appropriate, alert and oriented x 3, good mood and affect. Musculoskeletal: Patient walks with an antalgic gait. She has limited flexion of only 90? limited by pain. Internal rotation is likewise limited to about 15?, external to 25?. Body habitus makes much of her exam quite difficult. Neurologic exam is intact throughout the lower extremity. IMAGING: IMPRESSION: Remote deformity and postsurgical changes of the right proximal femur. ?Right hip grossly maintained. Plastic Card Grader Cardroom: [facility] ? Transcribe Date/Time: Nov 12 2017 10:21P Dictated by : CAROLYN TREVINO MD This examination was interpreted and the report reviewed and electronically signed by: CAROLYN TREVINO MD on Nov 12 2017 10:23PM ?EST Results-Findings * * *Final Report* * * DATE OF EXAM: Nov 11 2017 ?2:56PM ? WRX ? [id number] ?- ?XR HIP 3V PELV+ AP/LAT RT ?/ PROCEDURE REASON: Pain in right hip ?? ? * * * * Physician Interpretation * * * * ?HISTORY: ?Hx of 6 hip surgeries. Right hip dislocating and poping causing pain x 2 months.. ?Pain in right hip ? . TECHNIQUE: XR HIP 3V PELV+ AP/LAT RT ?? Laterality: ?RIGHT ?? Number of different views (projections): 3 COMPARISON: None RESULT: Remote deformity of the proximal femur including the femoral head neck and proximal shaft. ?Otherwise there is no acute fracture identified. ? The right hip is grossly maintained. The bony pelvis is unremarkable. ?The left hip is normal. Supporting Subjective Information Below: Past Medical History: PAST MEDICAL HISTORY Diagnosis Date - Anemia WITH 2ND - Asthma since 14 years old, inhaler PRN - Complex ovarian cyst - Needs follow up imaging 06/09/2013 06/09/2013 An ultrasound was done 06/04/2013 that revealed a 6w5d fetus with DELFINA of 01/24/14. There is fluid seen adjacent to the gestastional sac possible subchorionic hemorrhage. the left ovary is within normal limits but the right ovary contains a 3.8 x 3 x 3.3 cm moderately complex cyst. TKRN 01/15/2014 - Confirmed 9 x 7 x 2.5 cm multi-loculated cyst at the time of . Needs outpatient follow up via TVUS. - Congenital hip deformity right - Diabetes, gestational insulin controlled - Family history of defects 06/09/2013 06/09/2013Patient's mother born with spina bifida. Patient's brother born with a hole in his heart. Patient has another brother that was born with Down syndrome. Patient and her brother born with a congenital hip deformity. Patient has had multiple corrective surgeries for the hip deformity.TKRN - Family history of Down syndrome 06/21/2014 Brother with DS - Family history of spina bifida 06/21/2014 Mom with Spina bifida in wheelchair - Gall stones 2007 Gall bladder removed - History of asthma 06/09/2013 06/09/2013Patient has a history of asthma. She uses an albuterol inhaler when necessary. TKRN - History of 06/09/2013 06/09/2013 Pt had 3 previous C sections. - History of kidney stones - Nausea/vomiting in 06/09/2013 06/09/2013She states she has nausea . Advised patient to call/come in if she has persistent vomiting or if her blood sugars were less than 70. TKRN - Ovarian cyst during 07/21/2014 07/21/14: see NT ultrasound: Right ovarian cyst 6cm - Pain in joint, pelvic region and thigh 01/10/2006 - Pancreatitis - Patient requested diagnostic testing 06/09/2013 06/09/2013 Patient desires early screening in with sequential testing. TKRN - depression - Prior macrosomia, antepartum 06/21/2014 - Short interval between pregnancies complicating , antepartum 06/09/2013 06/09/2013Nikki delivered her previous child August 14, 2012.TKRN - Type 2 diabetes mellitus (HCC) 05/22/2013 - Type 2 diabetes mellitus complicating , antepartum 05/28/2013 06/09/2013Nikki has a history of diabetes diagnosed 4 years ago. She was unaware that she was until she went into labor with her first . With her second she started insulin during the second trimester. She was referred to Dr. Tejada at [facility] for poorly controlled diabetes on metformin alone. She has since started insulin and has an appointment today with Dr. Guevara for followup. She has been keeping track of her blood sugars and presents with a journal today and these blood sugars are copy off and given to Dr. Guevara for his review. I have discussed with the patient the importance of good control of her blood sugars during and keeping a blood sugar log for review by the Doctor. She is reminded that she is to send her blood sugars in weekly to Dr. Guevara and she is to call sooner than a week if she has persistently high, greater the 180, or low blood sugars, less than 70. She is provided with a blood sugar log today. She has not had a diabetic foot or eye exam rece Past Surgical History: PAST SURGICAL HISTORY Procedure Laterality Date - DELIVERY ONLY , low transverse x3 - DELIVERY ONLY 01/19/15 , low transverse - IANDD ABSC; [facility] OR SGL 05/2013 cyst on left upper chest - LAPAROSCOPIC CHOLEYCYSTECTOMY Cholecystectomy, lap - PAST SURGICAL HISTORY OF tubes in ears per Dr Crockett at [facility] - PAST SURGICAL HISTORY OF Tonsils and Adenoids removed per Dr Crockett at [facility] - PAST SURGICAL HISTORY OF [address] Marroquin at [facility] and one by Dr. Camacho in [place] - REMOVAL OF OVARY/TUBE(S) 01/19/15 Salpingo-oophorectomy, right ovarian mass Family History: FAMILY HISTORY Problem Relation Age of Onset - Diabetes Mother - Hypertension Mother - other (spina bifida) Mother - Heart Father - Hypertension Father - Cancer Maternal Grandmother - Alcohol/Drug Maternal Grandmother - Heart Paternal Grandmother - Aneurysm Paternal Grandmother - Stroke Brother - other (Down Syndrome) Brother - other (autism) Brother step brother - seizures and cerebral palsy also - other (Open family hx of Neural Tube Defect) Brother Social History:Social History Marital status: Single Spouse name: Years of education: 10 Number of children: 2 Occupational History Occupation Employer Comment [employer]OMEM[employer] Social History Main Topics Smoking status: Never Smoker Smokeless tobacco: Never Used Comment: mom's fiance smokes outside Alcohol use: No Drug use: No Sexual activity: Yes Partners with: Male Medications: Current Outpatient Prescriptions: meloxicam (MOBIC) 15 mg tablet Take 1 tablet by mouth once daily. X 10 days, then daily as needed with food. blood sugar diagnostic (FREESTYLE LITE STRIPS) test strip Use as directed 4 times daily. metFORMIN ER (GLUCOPHAGE XR) 500 mg 24 hr tablet TAKE TWO TABLETS BY MOUTH WITH BREAKFAST AND TWO TABLETS WITH SUPPER liraglutide (VICTOZA 2-WILLIAM) 0.6 mg/0.1 mL (18 mg/3 mL) pnij Inject 1.2 mg subcutaneously once daily. insulin glargine (BASAGLAR KWIKPEN U-100 INSULIN) 100 unit/mL (3 mL) inpn Inject 40 Units subcutaneously daily at bedtime. COMPOUNDED PRESCRIPTION One Touch meter kit. Lancets (ONETOUCH ULTRASOFT LANCETS) lancets Test blood sugar(s) 5 times daily. Dx: Type 2 DM - Controlled E11.9 , Insulin: yes famotidine (PEPCID) 20 mg tablet Take 1 tablet by mouth daily at bedtime. Alcohol Swabs padm Use as directed up to 5 times daily DM: yes Insulin: yes DX: E.11.9 insulin needles, DISPOSABLE, (PEN NEEDLE) 31 gauge x 5/16 ndle One daily with insulin COMPOUNDED PRESCRIPTION 1 Each as needed. Sharps Container. Dx:Diabetes mellitus, antepartum (648.03) Lancets (ONE TOUCH SURESOFT LANCING DEV) lancets Use as instructed pantoprazole DR (PROTONIX) 40 mg tablet Take 1 tablet by mouth once daily. (Patient not taking: Reported on 01/13/2018 ) triamcinolone (KENALOG) 0.025 % cream Apply 1 application to affected area twice daily. (Patient not taking: Reported on 01/13/2018 ) Oral Medication Containers (SHARPS CONTAINER) misc 1 Can twice daily. Oral Medication Containers (BD SHARPS PRIVATE BANKER) misc 1 Container as needed (to disopse of insulin needles). No current facility-administered medications for this visit. Allergies: Aspirin; Paper Tape [Other]; Penicillins ROS: General (negative for fatigue, malaise, weight loss/gain) HEENT (negative for headache, earache, recent vision changes, sinus pain, sore throat) Respiratory (no recent shortness of breath, hemoptysis) CV (negative for chest tightness, palpitations) Musculoskeletal (see HPI) Psych (no depression, anxiety) REFERRING PHYSICIAN: Luba Contreraszia Selam Pilo was referred to me for consultation by the following physician. This consultation note will be sent to the following physician by either mail or electronic medical record. Tara Roman APRN.EDUCATIONAL TECHNOLOGY SPECIALIST [address] [facility] [address] SUNNY WLELS MD [address] [facility] [address] This note was partially generated using [employer] voice recognition system, and there may be some incorrect words, spellings, and punctuation that were not noted in checking the note before saving. 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 METFORMIN ER 500 MG TABLET,EX* TAKE TWO TABLETS BY MOUTH WIT* LIRAGLUTIDE 0.6 MG/0.1 ML (18* Inject 1.2 mg subcutaneously * INSULIN GLARGINE (U-100) 100 * Inject 40 Units subcutaneousl* COMPOUNDED PRESCRIPTION One Touch meter kit. LANCETS Test blood sugar(s) 5 times * FAMOTIDINE 20 MG TABLET Take 1 tablet by mouth daily * ALCOHOL SWABS Use as directed up to 5 times* PEN NEEDLE, DIABETIC 31 GAUGE* One daily with insulin COMPOUNDED PRESCRIPTION 1 Each as needed. Sharps Cont* LANCETS Use as instructed PANTOPRAZOLE 40 MG TABLET,DEL* Take 1 tablet by mouth once d* Patient not taking: Reported on 01/13/2018 TRIAMCINOLONE ACETONIDE 0.025* Apply 1 application to affect* Patient not taking: Reported on 01/13/2018 EMPTY CONTAINER 1 Can twice daily. EMPTY CONTAINER 1 Container as needed (to dis* Medication notes this encounter MELOXICAM 15 MG TABLET >> Cyn Jimenez RN 01/13/2018 1:26 PM >> CYN JIMENEZ RN Mon Jan 13, 2018 1:26 PM taking only as needed, states does not help Problem List As Of Date 01/13/2018 Noted Resolved Type 2 diabetes mellitus (HCC) [E11.9] INVALID FOR* More... More... More... Obesity, unspecified [E66.9] INVALID FOR* More... History of flank pain [Z87.898] INVALID FOR*06/21/2014 More... More... More... History of depression [Z86.59] INVALID FOR* More... More... More... More... More... More... More... Depression [F32.9] INVALID FOR* Encounter Status:Closed by KIP LUEVANO MD on 01/31/18 PROGRESS Observed: 01/10/2018 Status: COMPLETED Source: [place] 10:[address] [facility] REPOSITORY [facility] ID: [id number] Author: Jeannette Bill Service: (none) Author Type: Registered Nurse Type: Progress Notes Filed: 02/10/2018 11:41 AM Note Text: PRIMARY CARE COORDINATION FOLLOW-UP NOTE Provider Action/FYI: Will await pt call back. She will likely see my number on her phone. She knows to call me if it doesn't get better. Patient identified by name and date of . YES Spoke to unable to reach pt. Summary: Difficulty reaching pt. She has my office and cell number so she can call me directly. I reviewed [facility] and as of now she has not gone to ER. Concerns: Pt is often frustrated with complaints that resolve themselves. [employer] Artisan plan for next outreach: Will follow up as she needs me. Signature Jeannette Bill RN Ambulatory Postpartum Rn Internal Medicine [facility] January 10, 2018 LAITOVINCEJACQUELINE Observed: 01/09/2018 Status: COMPLETED Source: [place] 12:[address] [facility] REPOSITORY Patient Outreach (INTMWS) MIRZA DAIGLE Selam ([id number]) 1990 F Date Time Provider Department 01/09/18 JEANNETTE BUSBY During your visit today, we recorded the following information about you: Jeannette Olmstead RN 02/10/2018 11:41 AM Signed PRIMARY CARE COORDINATION FOLLOW-UP NOTE Provider Action/FYI: Will await pt call back. She will likely see my number on her phone. She knows to call me if it doesn't get better. Patient identified by name and date of . YES Spoke to unable to reach pt. Summary: Difficulty reaching pt. She has my office and cell number so she can call me directly. I reviewed [facility] and as of now she has not gone to ER. Concerns: Pt is often frustrated with complaints that resolve themselves. [employer] Artisan plan for next outreach: Will follow up as she needs me. Signature Jeannette Bill RN Ambulatory Postpartum Rn Internal Medicine [facility] January 10, 2018 Allergies As of Date: 01/09/2018 Noted Allergy Reaction ASPIRIN 09/18/2005 4 - Hives 8 - GI Upset paper tape [Other] 06/26/2005 2 - Rash 7 - Swelling 9 - Itching Comments: Area gets very red also PENICILLINS 05/11/2013 4 - Hives Date Reviewed: 01/06/2018 Reviewed by: Bushra Simms Ma - Fully Assessed Reason for Visit: Postpartum Rn Hospital Follow Up [8920] Prescriptions as of 01/09/2018 Sig: X TRAMADOL 50 MG TABLET Take 1 tablet by mouth every * MELOXICAM 15 MG TABLET Take 1 tablet by mouth once d* PANTOPRAZOLE 40 MG TABLET,DEL* Take 1 tablet by mouth once d* Patient not taking: Reported on 01/13/2018 BLOOD SUGAR DIAGNOSTIC STRIPS Use as directed 4 times daily. TRIAMCINOLONE ACETONIDE 0.025* Apply 1 application to affect* Patient not taking: Reported on 01/13/2018 METFORMIN ER 500 MG TABLET,EX* TAKE TWO TABLETS BY MOUTH WIT* LIRAGLUTIDE 0.6 MG/0.1 ML (18* Inject 1.2 mg subcutaneously * INSULIN GLARGINE (U-100) 100 * Inject 40 Units subcutaneousl* COMPOUNDED PRESCRIPTION One Touch meter kit. LANCETS Test blood sugar(s) 5 times * FAMOTIDINE 20 MG TABLET Take 1 tablet by mouth daily * ALCOHOL SWABS Use as directed up to 5 times* EMPTY CONTAINER 1 Can twice daily. PEN NEEDLE, DIABETIC 31 GAUGE* One daily with insulin COMPOUNDED PRESCRIPTION 1 Each as needed. Sharps Cont* EMPTY CONTAINER 1 Container as needed (to dis* LANCETS Use as instructed Problem List As Of Date 01/09/2018 Noted Resolved Type 2 diabetes mellitus (HCC) [E11.9] INVALID FOR* More... More... More... Obesity, unspecified [E66.9] INVALID FOR* More... History of flank pain [Z87.898] INVALID FOR*06/21/2014 More... More... More... History of depression [Z86.59] INVALID FOR* More... More... More... More... More... More... More... Depression [F32.9] INVALID FOR* Encounter Status:Closed by JEANNETTE BILL on 02/10/18 VAG PATHOGENS DNA Collected: 01/07/2018 Status: F Source: [place] 9:49 PM [facility] REPOSITORY TYPE CODE TESTS RESULT OUT OF RANGE REFERENCE UNITS LAB TVDNA Negative for Trichomonas Negative vaginalis by DNA for Trichomonas Probe Trich vag vaginalis by DNA DNA Probe Probe LAB GVDNA Negative for Gardnerella Positive Abnormal vaginalis by DNA for Gardnerella Alert Probe Maddie vag vaginalis by DNA DNA Probe probe. Result Comment: This is suggestive, but not diagnostic of bacterial vaginosis, results should be interpreted in conjunction with other data such as pH, amine odor, clue cells and vaginal discharge characteristics. LAB CANDNA Negative for Kelly species Negative by DNA Probe Kelly sp DNA for Kelly Probe species by DNA Probe Performed By: #### VAGDNA #### [facility] [address] [place] [id number] PROGRESS Observed: 01/07/2018 Status: COMPLETED Source: [place] 9:27 AM [facility] REPOSITORY HNO ID: [id number] Author: Yolanda Chung) [place] Service: (none) Author Type: Nurse Practitioner Type: Progress Notes Filed: 01/07/2018 9:52 AM Note Text: Subjective HPI HPI Mirza Daigle is a 27 year old female who presents today for CC of vaginal discharge and itching. This started 3 days ago She is also having thick chunky discharge Symptoms are worsened by nothing She has tried no treatment or medications. Risk factors uncontrolled diabetic BP 102/64 Pulse 78 Temp 36.7 ?C (98 ?F) (Tympanic) Resp 16 Wt 129.3 kg (285 lb) LMP 12/24/2017 BMI 44.64 kg/m? ALLERGIES Allergen Reactions - Aspirin Hives, GI Upset - Paper Tape [Other] Rash, Swelling, Itching Area gets very red also - Penicillins Hives ACTIVE PROBLEM LIST Type 2 diabetes mellitus (HCC) Obesity, Unspecified History of Depression Depression Family History Problem Relation Age of Onset - Diabetes Mother - Hypertension Mother - spina bifida [OTHER] Mother - Heart Father - Hypertension Father - Cancer Maternal Grandmother - Alcohol/Drug Maternal Grandmother - Heart Paternal Grandmother - Aneurysm Paternal Grandmother - Stroke Brother - Down Syndrome [OTHER] Brother - autism [OTHER] Brother step brother - seizures and cerebral palsy also - Open family hx of Neural Tube Defect [OTHER] Brother Social History Marital status: Single Spouse name: Years of education: 10 Number of children: 2 Occupational History Occupation Employer Comment [employer]OMEM[employer] Social History Main Topics Smoking status: Never Smoker Smokeless tobacco: Never Used Comment: mom's fiance smokes outside Alcohol use: No Drug use: No Sexual activity: Yes Partners with: Male PAST MEDICAL HISTORY Diagnosis Date - Anemia WITH 2ND - Asthma since 14 years old, inhaler PRN - Complex ovarian cyst - Needs follow up imaging 06/09/2013 06/09/2013 An ultrasound was done 06/04/2013 that revealed a 6w5d fetus with DELFINA of 01/24/14. There is fluid seen adjacent to the gestastional sac possible subchorionic hemorrhage. the left ovary is within normal limits but the right ovary contains a 3.8 x 3 x 3.3 cm moderately complex cyst. TKRN 01/15/2014 - Confirmed 9 x 7 x 2.5 cm multi-loculated cyst at the time of . Needs outpatient follow up via TVUS. - Congenital hip deformity - Diabetes, gestational insulin controlled - Family history of defects 06/09/2013 06/09/2013Patient's mother born with spina bifida. Patient's brother born with a hole in his heart. Patient has another brother that was born with Down syndrome. Patient and her brother born with a congenital hip deformity. Patient has had multiple corrective surgeries for the hip deformity.TKRN - Family history of Down syndrome 06/21/2014 Brother with DS - Family history of spina bifida 06/21/2014 Mom with Spina bifida in wheelchair - Gall stones 2007 Gall bladder removed - History of asthma 06/09/2013 06/09/2013Patient has a history of asthma. She uses an albuterol inhaler when necessary. TKRN - History of 06/09/2013 06/09/2013 Pt had 3 previous C sections. - History of kidney stones - Nausea/vomiting in 06/09/2013 06/09/2013She states she has nausea . Advised patient to call/come in if she has persistent vomiting or if her blood sugars were less than 70. TKRN - Ovarian cyst during 07/21/2014 07/21/14: see NT ultrasound: Right ovarian cyst 6cm - Pain in joint, pelvic region and thigh 01/10/2006 - Pancreatitis - Patient requested diagnostic testing 06/09/2013 06/09/2013 Patient desires early screening in with sequential testing. TKRN - depression - Prior macrosomia, antepartum 06/21/2014 - Short interval between pregnancies complicating , antepartum 06/09/2013 06/09/2013She delivered her previous child August 14, 2012.TKRN - Type 2 diabetes mellitus (HCC) 05/22/2013 - Type 2 diabetes mellitus complicating , antepartum 05/28/2013 06/09/2013She has a history of diabetes diagnosed 4 years ago. She was unaware that she was until she went into labor with her first . With her second she started insulin during the second trimester. She was referred to Dr. Tejada at [facility] for poorly controlled diabetes on metformin alone. She has since started insulin and has an appointment today with Dr. Guevara for followup. She has been keeping track of her blood sugars and presents with a journal today and these blood sugars are copy off and given to Dr. Guevara for his review. I have discussed with the patient the importance of good control of her blood sugars during and keeping a blood sugar log for review by the Doctor. She is reminded that she is to send her blood sugars in weekly to Dr. Guevara and she is to call sooner than a week if she has persistently high, greater the 180, or low blood sugars, less than 70. She is provided with a blood sugar log today. She has not had a diabetic foot or eye exam rece Review of Systems Constitutional: Negative for chills, fever and malaise/fatigue. Genitourinary: Negative for dysuria, flank pain, frequency, hematuria and urgency. Vaginal/vulvar burning and itching Skin: Negative for rash. Neurological: Negative for headaches. Objective Physical Exam Constitutional: She is oriented to person, place, and time and well-developed, well-nourished, and in no distress. HENT: Head: Normocephalic and atraumatic. Eyes: Conjunctivae and EOM are normal. Pupils are equal, round, and reactive to light. Neck: Normal range of motion. Neck supple. Pulmonary/Chest: Effort normal. Abdominal: Soft. There is no hepatosplenomegaly. There is no tenderness. There is no rigidity, no rebound, no guarding and no CVA tenderness. Genitourinary: Vulva exhibits erythema. Vagina exhibits abnormal mucosa. Thick curdy musty white yellow and vaginal discharge found. Neurological: She is alert and oriented to person, place, and time. Skin: Skin is warm. Psychiatric: Affect normal. Nursing note and vitals reviewed. ASSESSMENT/PLAN: 1. Acute vaginitis - ICD9: 616.10, ICD10: N76.0 Take medication as directed Follow up with EDUCATION INTERN if no improvement. - FLUCONAZOLE 150 MG TABLET - no longer taking Lexapro, dc'd 6 months ago per patient. - VAGINAL PATHOGENS DNA PROBES Diagnosis and treatment plan were discussed and questions were answered to the patient's satisfaction. Pt acknowledged understanding of concepts and follow up plan. Specific signs and symptoms that would indicate the need for higher level of care were discussed in detail warranting prompt ER evaluation. Yolanda Lebron APRN.LAI CNOV Observed: 01/07/2018 Status: COMPLETED Source: [place] 9:[address] [facility] REPOSITORY Office Visit ([facility]) AYESHA DAIGLEADELEMOHIT Selam ([id number]) 1990 F Date Time Provider Department 01/07/18 9:00 AM YOLANDA LEBRON (LAI) [facility] During your visit today, we recorded the following information about you: Temperature Pulse Respiration Blood pressure 98 degrees 78/minute 16/minute 102/64 Weight Last Period 129.3 kg 12/24/17 Yolanda Lebron APRN.CNP 01/07/2018 9:52 AM Signed Subjective HPI HPI Jagmohit Daigle is a 27 year old female who presents today for CC of vaginal discharge and itching. This started 3 days ago She is also having thick chunky discharge Symptoms are worsened by nothing She has tried no treatment or medications. Risk factors uncontrolled diabetic BP 102/64 Pulse 78 Temp 36.7 ?C (98 ?F) (Tympanic) Resp 16 Wt 129.3 kg (285 lb) LMP 12/24/2017 BMI 44.64 kg/m? ALLERGIES Allergen Reactions - Aspirin Hives, GI Upset - Paper Tape [Other] Rash, Swelling, Itching Area gets very red also - Penicillins Hives ACTIVE PROBLEM LIST Type 2 diabetes mellitus (HCC) Obesity, Unspecified History of Depression Depression Family History Problem Relation Age of Onset - Diabetes Mother - Hypertension Mother - spina bifida [OTHER] Mother - Heart Father - Hypertension Father - Cancer Maternal Grandmother - Alcohol/Drug Maternal Grandmother - Heart Paternal Grandmother - Aneurysm Paternal Grandmother - Stroke Brother - Down Syndrome [OTHER] Brother - autism [OTHER] Brother step brother - seizures and cerebral palsy also - Open family hx of Neural Tube Defect [OTHER] Brother Social History Marital status: Single Spouse name: Years of education: 10 Number of children: 2 Occupational History Occupation Employer Comment HOMEMAKER Social History Main Topics Smoking status: Never Smoker Smokeless tobacco: Never Used Comment: mom's fijosé luis smokes outside Alcohol use: No Drug use: No Sexual activity: Yes Partners with: Male PAST MEDICAL HISTORY Diagnosis Date - Anemia WITH 2ND - Asthma since 14 years old, inhaler PRN - Complex ovarian cyst - Needs follow up imaging 06/09/2013 06/09/2013 An ultrasound was done 06/04/2013 that revealed a 6w5d fetus with DELFINA of 01/24/14. There is fluid seen adjacent to the gestastional sac possible subchorionic hemorrhage. the left ovary is within normal limits but the right ovary contains a 3.8 x 3 x 3.3 cm moderately complex cyst. TKRN 01/15/2014 - Confirmed 9 x 7 x 2.5 cm multi-loculated cyst at the time of . Needs outpatient follow up via TVUS. - Congenital hip deformity - Diabetes, gestational insulin controlled - Family history of defects 06/09/2013 06/09/2013Patient's mother born with spina bifida. Patient's brother born with a hole in his heart. Patient has another brother that was born with Down syndrome. Patient and her brother born with a congenital hip deformity. Patient has had multiple corrective surgeries for the hip deformity.TKRN - Family history of Down syndrome 06/21/2014 Brother with DS - Family history of spina bifida 06/21/2014 Mom with Spina bifida in wheelchair - Gall stones 2007 Gall bladder removed - History of asthma 06/09/2013 06/09/2013Patient has a history of asthma. She uses an albuterol inhaler when necessary. TKRN - History of 06/09/2013 06/09/2013 Pt had 3 previous C sections. - History of kidney stones - Nausea/vomiting in 06/09/2013 06/09/2013She states she has nausea . Advised patient to call/come in if she has persistent vomiting or if her blood sugars were less than 70. TKRN - Ovarian cyst during 07/21/2014 07/21/14: see NT ultrasound: Right ovarian cyst 6cm - Pain in joint, pelvic region and thigh 01/10/2006 - Pancreatitis - Patient requested diagnostic testing 06/09/2013 06/09/2013 Patient desires early screening in with sequential testing. TKRN - depression - Prior macrosomia, antepartum 06/21/2014 - Short interval between pregnancies complicating , antepartum 06/09/2013 06/09/2013Nikki delivered her previous child August 14, 2012.TKRN - Type 2 diabetes mellitus (HCC) 05/22/2013 - Type 2 diabetes mellitus complicating , antepartum 05/28/2013 06/09/2013Nikki has a history of diabetes diagnosed 4 years ago. She was unaware that she was until she went into labor with her first . With her second she started insulin during the second trimester. She was referred to Dr. Tejada at [facility] for poorly controlled diabetes on metformin alone. She has since started insulin and has an appointment today with Dr. Guevara for followup. She has been keeping track of her blood sugars and presents with a journal today and these blood sugars are copy off and given to Dr. Guevara for his review. I have discussed with the patient the importance of good control of her blood sugars during and keeping a blood sugar log for review by the Doctor. She is reminded that she is to send her blood sugars in weekly to Dr. Guevara and she is to call sooner than a week if she has persistently high, greater the 180, or low blood sugars, less than 70. She is provided with a blood sugar log today. She has not had a diabetic foot or eye exam rece Review of Systems Constitutional: Negative for chills, fever and malaise/fatigue. Genitourinary: Negative for dysuria, flank pain, frequency, hematuria and urgency. Vaginal/vulvar burning and itching Skin: Negative for rash. Neurological: Negative for headaches. Objective Physical Exam Constitutional: She is oriented to person, place, and time and well-developed, well-nourished, and in no distress. HENT: Head: Normocephalic and atraumatic. Eyes: Conjunctivae and EOM are normal. Pupils are equal, round, and reactive to light. Neck: Normal range of motion. Neck supple. Pulmonary/Chest: Effort normal. Abdominal: Soft. There is no hepatosplenomegaly. There is no tenderness. There is no rigidity, no rebound, no guarding and no CVA tenderness. Genitourinary: Vulva exhibits erythema. Vagina exhibits abnormal mucosa. Thick curdy musty white yellow and vaginal discharge found. Neurological: She is alert and oriented to person, place, and time. Skin: Skin is warm. Psychiatric: Affect normal. Nursing note and vitals reviewed. ASSESSMENT/PLAN: 1. Acute vaginitis - ICD9: 616.10, ICD10: N76.0 Take medication as directed Follow up with EDUCATION INTERN if no improvement. - FLUCONAZOLE 150 MG TABLET - no longer taking Lexapro, dc'd 6 months ago per patient. - VAGINAL PATHOGENS DNA PROBES Diagnosis and treatment plan were discussed and questions were answered to the patient's satisfaction. Pt acknowledged understanding of concepts and follow up plan. Specific signs and symptoms that would indicate the need for higher level of care were discussed in detail warranting prompt ER evaluation. KATHARINE Davis APRN.CNP 01/07/2018 9:32 AM Signed ASSESSMENT/PLAN: 1. Acute vaginitis - ICD9: 616.10, ICD10: N76.0 Take medication as directed Follow up with EDUCATION INTERN if no improvement. - FLUCONAZOLE 150 MG TABLET - VAGINAL PATHOGENS DNA PROBES To ER for worsening symptoms, increased pain, fevers, vomiting, decreased urine output, blood in her urine blood in her stools or dark tarry stools. Referring Provider: SELF [[id number]] Allergies As of Date: 01/07/2018 Noted Allergy Reaction ASPIRIN 09/18/2005 4 - Hives 8 - GI Upset paper tape [Other] 06/26/2005 2 - Rash 7 - Swelling 9 - Itching Comments: Area gets very red also PENICILLINS 05/11/2013 4 - Hives Date Reviewed: 01/06/2018 Reviewed by: Bushra Simms Ma - Fully Assessed Reason for Visit: Vaginal Problem [117] Cmt: itching and burning Primary Visit Diagnosis:Acute vaginitis [N76.0] Order(s):fluconazole (DIFLUCAN) 150 mg tabletTake 1 tablet by mouth one time only for 1 dose. Repeat in 3 days as needed.Disp: 2 tabletRfl: 0 VAGINAL PATHOGENS DNA PROBES [SQVAGDNA] Order #: [id number] Prescriptions as of 01/07/2018 Sig: FLUCONAZOLE 150 MG TABLET Take 1 tablet by mouth one ti* TRAMADOL 50 MG TABLET Take 1 tablet by mouth every * MELOXICAM 15 MG TABLET Take 1 tablet by mouth once d* PANTOPRAZOLE 40 MG TABLET,DEL* Take 1 tablet by mouth once d* BLOOD SUGAR DIAGNOSTIC STRIPS Use as directed 4 times daily. TRIAMCINOLONE ACETONIDE 0.025* Apply 1 application to affect* METFORMIN ER 500 MG TABLET,EX* TAKE TWO TABLETS BY MOUTH WIT* LIRAGLUTIDE 0.6 MG/0.1 ML (18* Inject 1.2 mg subcutaneously * INSULIN GLARGINE (U-100) 100 * Inject 40 Units subcutaneousl* COMPOUNDED PRESCRIPTION One Touch meter kit. LANCETS Test blood sugar(s) 5 times * FAMOTIDINE 20 MG TABLET Take 1 tablet by mouth daily * ALCOHOL SWABS Use as directed up to 5 times* EMPTY CONTAINER 1 Can twice daily. PEN NEEDLE, DIABETIC 31 GAUGE* One daily with insulin COMPOUNDED PRESCRIPTION 1 Each as needed. Sharps Cont* EMPTY CONTAINER 1 Container as needed (to dis* LANCETS Use as instructed Problem List As Of Date 01/07/2018 Noted Resolved Type 2 diabetes mellitus (HCC) [E11.9] INVALID FOR* More... More... More... Obesity, unspecified [E66.9] INVALID FOR* More... History of flank pain [Z87.898] INVALID FOR*06/21/2014 More... More... More... History of depression [Z86.59] INVALID FOR* More... More... More... More... More... More... More... Depression [F32.9] INVALID FOR* Other instructions from your clinician: ASSESSMENT/PLAN: 1. Acute vaginitis - ICD9: 616.10, ICD10: N76.0 Take medication as directed Follow up with EDUCATION INTERN if no improvement. - FLUCONAZOLE 150 MG TABLET - VAGINAL PATHOGENS DNA PROBES To ER for worsening symptoms, increased pain, fevers, vomiting, decreased urine output, blood in her urine blood in her stools or dark tarry stools. Prescriptions ordered this encounter Disp Refills Start End FLUCONAZOLE 150 MG TABLET 2 ta* 0 01/07/2018 01/07/2018 Route: ORAL Sig: Take 1 tablet by mouth one time only for 1 dose. Repeat in 3 days as needed. Medications Discontinued During This Encounter escitalopram oxalate (LEXAPRO) 20 mg* 30 t* 5 07/26/2016 01/07/2018 Class: Med Update Route: ORAL Sig: Take 1 tablet by mouth once daily. Disc: Discontinued by Patient Encounter Status:Closed by YOLANDA LEBRON CNP on 01/07/18 EMERGENCY DEPARTMENT Observed: 01/07/2018 Status: F Source: [place] 7:55 AM [facility] Medical Records Department [address] [place] [address] Emergency Department Summary 01/06/18 1515 MR#: [id number] Acct: [id number] Name: MIRZA DAIGLE Rep #: [id number] : 1990 27 From: Venu Colvin MD PCP: Sunny Wells MD Status: DEP ER - ER Visit Summary Date of Service: 01/06/18 Chief Complaint: Abdominal pain History of Present Illness: The patient is a 27 F with 3 days of epigastric abdominal pain. Worse with food. Associated with nausea and vomiting. Normal bowel movement earlier today. No bleeding. No fevers. Patient never had this before. She does have a history of cholecystectomy and . No urinary or EDUCATION INTERN symptoms. Physical Examination: Afebrile vital signs unremarkable except for a heart rate of 113. Patient appears uncomfortable but not toxic. Skin appears normal without pallor or jaundice. Heart regular. Lungs clear. Abdomen is tender in epigastric region. No guarding or rebound. Back is nontender. Test Results: White count 11.6. CMP unremarkable. Lipase normal. Urinalysis unremarkable. test negative. CT showed postoperative changes as well as transient hepatic attenuation differences. I spoke with radiology about this. This can be an imaging artifact. Given the patient's age, comorbidities, symptoms, and findings today, the radiologist recommended no further imaging or workup. She believes this is nonsignificant. Emergency Department Course and Treatment: Patient was treated with fluids, morphine, and Zofran while awaiting results. Workup was performed as above. Results were all fairly unremarkable. Radiology recommended no further imaging or diagnostic testing. Clinically, the patient appears well and would like to go home. I will prescribe a course of Motrin as well as Zofran. She should stay hydrated. Return for any new or worsening symptoms that she could require admission, reevaluation, or further diagnostic testing if her condition changes. Treatment Plan: As above Disposition: Discharged Impression: 1. Abdominal pain This note was generated with [employer] dictation software. It may contain incorrect words, spelling, and punctuation that were not noted in review of the chart prior to signing ED Disposition - Plan for ED Patient: Chief Complaint: Nausea/Vomiting Referrals: Sunny Wells MD [Primary Care Provider] - What to do if you have Problems For any increased pain, shortness of breath, bleeding, nausea or vomiting, chest pain, or any unexpected problems, contact your Primary Care Provider. Call [employer] [facility] ([phone]) or report to the closest Emergency Room. Call 911 if necessary. 01/07/18 0755 <Electronically signed by Venu Colvin MD> Date Venu Colvin MD Cosigner Signature (If Indicated): Date CC: Sunny Wells MD DISCHARGE INSTRUCTION Observed: 01/07/2018 Status: F Source: [place] 7:55 AM [facility] Medical Records Department [address] [place] [id number] Discharge Instruction 01/06/18 1518 MR#: [id number] Acct: [id number] Name: MIRZA DAIGLE Rep #: [id number] : 1990 27 From: Venu Colvin MD PCP: Sunny Wells MD Status: DEP ER ED Disposition - Plan for ED Patient: Chief Complaint: Nausea/Vomiting Instructions: Abdominal Pain Prescriptions: Ondansetron [Zofran Odt] 4 mg PO Q8H PRN PRN #10 tab PRN Reason: Nausea Ibuprofen [Motrin] 800 mg PO TID PRN PRN #20 tab PRN Reason: Pain Referrals: Sunny Wells MD [Primary Care Provider] - What to do if you have Problems For any increased pain, shortness of breath, bleeding, nausea or vomiting, chest pain, or any unexpected problems, contact your Primary Care Provider. Call [facility] ([phone]) or report to the closest Emergency Room. Call 911 if necessary. 01/07/18 0755 <Electronically signed by Venu Colvin MD> Date Venu Colvin MD Cosigner Signature (If Indicated): Date CC: Sunny Wells MD CBC W/DIFF, AUTOMATED Collected: 01/06/2018 Status: F Source: [place] 12:17 PM [facility] TYPE CODE TESTS RESULT OUT OF RANGE REFERENCE UNITS LAB L100.1000 4.4-11.0 K/mm3 High WBC 11.6 LAB L100.1200 4.2-5.4 M/mm3 Normal RBC 4.90 LAB L100.1300 12.0-15.0 g/dl High HGB 15.7 LAB L100.1400 37-47 % Normal HCT 44.5 LAB L100.1500 81-99 fL Normal MCV 90.8 LAB L100.1600 27.0-32.0 pg Normal MCH 32.0 LAB L100.1700 32-36 g/gl Normal MCHC 35.3 LAB L100.1810 11.6-14.6 % Normal RDW CV 13.2 LAB L100.1820 35.1-43.9 fl Normal RDW SD 43.0 LAB L100.1900 150-450 K/mm3 Normal PLT 301 LAB L100.2000 6.2-12.0 fl Normal MPV 9.6 LAB L100.2100 47-70 % Normal NEUT% 62.2 LAB L100.2200 19-41 % Normal LY% 29.0 LAB L100.2300 0-10 % Normal MONO% 7.3 LAB L100.2400 0-5 % Normal EO% 1.1 LAB L100.2500 0-1 % Normal BASO% 0.2 LAB L100.2550 0.0-0.9 % Normal IM GRAN % 0.200 Result Comment: IG% - Immature Granulocytes (promyelocytes, myelocytes and metamyelocytes) > 1% indicates that a LEFT SHIFT is Present. LAB L100.2620 2.0-7.7 X10 3/uL Normal Absolute Neut 7.2 LAB L100.2720 0.83-4.51 X10 3/ul Normal Absolute Lymph 3.36 Performed By: #### L100.0100 #### [facility] [address] [place], [place], [id number] COMPREHENSIVE METABOLIC Collected: 01/06/2018 Status: F Source: [facility] 12:17 PM [facility] TYPE CODE TESTS RESULT OUT OF RANGE REFERENCE UNITS LAB L501.0100 74-106 mg/dL High GLU 161 Result Comment: Fasting Glucose result greater than or equal to 126 mg/dL suggests DIABETES MELLITUS per A.D.A. criteria. Please note revised GLUCOSE reference range effective 2017. LAB L501.1000 7-18 mg/dL Normal BUN 10 LAB L501.1100 0.55-1.02 mg/dL Normal CREAT,SERUM 0.58 Result Comment: The validity of the calculated GFR AND GFRAA in patients over 70 years has not been determined. Clinical correlation is essential. LAB L501.1110 >60 mL/min Normal EST GFR 133 Result Comment: Non- GFR Calc LAB L501.1115 >60 mL/min Normal EST GFR - AA 161 Result Comment: GFR Calc LAB L501.1255 ml/min Normal Estimated CRCL 144.19 LAB L501.1300 10-20 RATIO BUN/CRE Normal 17.1 LAB L501.1500 6.4-8. g/dL 2 T PROT Normal 7.6 LAB L501.1800 3.2-5. g/dL 0 ALB Normal 3.6 LAB L501.1950 2.2-4. g/dL 2 GLOB Normal 4.0 LAB L501.2000 0.9-2. RATIO 4 A/G Normal 0.9 LAB L501.2200 8.5-10 mg/dL .1 CA Normal 8.6 LAB L501.4100 15-37 U/L AST Normal 24 LAB L501.4305 45-117 U/L ALK P Normal 103 LAB L501.4405 13-56 U/L ALT Normal 26 LAB L501.4600 0.20-1 mg/dL High .00 T BILI 1.40 LAB L501.5300 136-14 mmol/L 5 NA Normal 137 LAB L501.5600 3.5-5. mmol/L 1 K Normal 3.8 LAB L501.5900 98-107 mmol/L CL Normal 104 LAB L501.6100 21.0-3 mmol/L 2.0 CO2 Normal 24.0 LAB L501.6200 5-15 GAP Normal 9 Performed By: #### L500.4050, L501.2450 #### [facility] [address] [place], [address] LIPASE Collected: 01/06/2018 Status: F Source: [place] 12:17 PM [facility] TYPE CODE TESTS RESULT OUT OF REFERENCE UNITS RANGE LAB L501.2450 73-393 U/L Low LIPASE 69 Performed By: #### L500.4050, L501.2450 #### [facility] [address] [place], [place], [address] ,SERUM,HCG QUALI. Collected: Status: F Source: [place] 01/06/2018 12:17 PM [facility] [place] TYPE CODE TESTS RESULT OUT OF REFERENCE UNITS RANGE LAB L700.6700 =>Qualitative mIU/mL Normal HCG Qual < 1 triggr LAB L700.7000 0-9 Nonpreg Negative Normal HCGSQUAL NEGATIVE Performed By: #### L700.6800 #### [facility] [address] [place], [address] URINALYSIS, COMPLETE Collected: 01/06/2018 Status: F Source: [place] 12:15 PM [facility] [place] Order Comment: How was Urine Obtained? CLEAN CATCH TYPE CODE TESTS RESULT OUT OF RANGE REFERENCE UNITS LAB L400.3000 Yellow COLOR Normal Yellow LAB L400.3050 Clear Normal CLARITY Sl. Cloudy LAB L400.3200 Normal mg/dl Normal GLUCOSE, UR Normal LAB L400.3300 Negative mg/dL Normal BILIRUBIN URINE Negative LAB L400.3400 Negative mg/dl High 5 KETONE UR LAB L400.3465 1.002-1.030 Normal SP.GR. DIPSTX 1.025 LAB L400.3550 5.0 - 8.0 pH UR Normal 5.0 LAB L400.3600 Negative mg/dl High PROT 30 DIPSTX LAB L400.3700 Normal mg/dl Normal UROBILI Normal LAB L400.3750 Negative Normal NITRITE UR Negative LAB L400.3780 Negative /ul Normal OCCULT BLOOD-UR Negative LAB L400.3800 Negative /ul High LEUK 25 ESTERASE LAB L400.4050 0-5 /hpf WBC Normal 0-5 SEEN LAB L400.4100 0-5 /hpf 0 Normal RBC-UA SEEN LAB L400.4150 5-10 /hpf SQUAM Normal EPI 0-5 SEEN LAB L400.4300 None Seen /hpf 1+ Normal BACTERIA LAB L400.4350 <or=2+ /hpf 0 Normal MUCUS, URINE SEEN Performed By: #### L400.0001 #### [facility] [address] [place], [address] ABDOMEN/PELVIS W IV CONT Observed: 01/06/2018 Status: F Source: [facility] 11:54 AM [facility] [place] [facility] Imaging Services [address] [place] [address] Abdomen/Pelvis W IV Cont ONLY MR#: [id number] Acct: [id number] Name: MIRZA DAIGLE Selam Rep #: [id number] : 1990 F 27 From: Braden Bee DO PCP: Sunny Wells MD Status: REG ER Study: Abdomen/Pelvis W IV Cont ONLY Date of Exam: 01/06/18 Exam# [id number] Ordering Dr: Venu Colvin MD ADDENDUM by Braden Bee on 01/06/[address]/Abdomen/Pelvis W IV Cont ONLY 01/06/18 1506 Date cc: Sunny Wells MD; Venu Colvin MD * Signed ADDENDUM by Braden Bee on 01/06/18 at 1459 ADDENDUM ADDENDUM: Inadvertently not mentioned in the original report, there are tiny 1 to 2 mm calculi within the left kidney. No hydronephrosis. Electronically Signed: Braden Bee DO at 14:59 EDT Tel , Service support , 01/06/18 5507 Date cc: Sunny Wells MD; Venu Colvin MD * Signed STUDY: CT ABDOMEN AND PELVIS WITH CONTRAST REASON FOR EXAM: Female, 27 years old. Abdominal pain, nausea and vomiting RADIATION DOSAGE (If Supplied By Facility): CTDIvol = ( 17.07 ) mGy, DLP = ( 1352.08 ) mGycm TECHNIQUE: Transaxial images were obtained from the dome of the diaphragm to the symphysis pubis without oral contrast. 100 ml of Isovue 300 contrast was administered. Sagittal and coronal images were reconstructed. Individualized dose optimization techniques were used for this CT. COMPARISON: None. FINDINGS: The visualized lung bases are unremarkable. The visualized portions of the heart are within normal limits. The liver enhances heterogeneously. This may reflect transient hepatic attenuation differences (LOUSI). There are surgical clips in the gallbladder fossa consistent with a prior cholecystectomy. Normal spleen. The pancreas is foreshortened, with visualization of only the pancreatic head and proximal body. This may represent congenital hypoplasia or postoperative change. Normal bilateral adrenal glands. Normal right kidney. Normal left kidney. Normal visualized stomach. Normal small intestine. Normal colon. The appendix is visualized and appears normal. Normal abdominal aorta. Normal inferior vena cava. Normal retroperitoneum. Normal urinary bladder. Normal visualized uterus. Normal abdominal wall. Multiple Schmorl's nodes are seen within the spine. CT/Abdomen/Pelvis W IV Cont ONLY IMPRESSION: Heterogeneous liver may reflect transient hepatic attenuation differences. This can be seen with aberrant vascular supply. Postoperative changes of cholecystectomy. No bowel obstruction or acute renal pathology. Electronically Signed: Braden Bee DO at 14:36 EDT Tel , Service support , CC: Sunny Wells MD; Venu Colvin MD Plastic Card Grader Cardroom: Signed PROGRESS Observed: 01/06/2018 Status: COMPLETED Source: [place] 10:35 AM [facility] [place] REPOSITORY HNO ID: [id number] Author: Yolanda (Career Development Coordinator) [place] Service: (none) Author Type: Nurse Practitioner Type: Progress Notes Filed: 01/06/2018 11:03 AM Note Text: Subjective HPI HPI Mirza Daigle is a 27 year old female who presents today for CC of vomiting x 3 days and abdominal pain. The pain is worsening. She has tried small frequent meals and every time after she eats she vomits. Denies fever. BP 110/68 Pulse 78 Temp 36.6 ?C (97.8 ?F) (Tympanic) Resp 16 Wt 130.2 kg (287 lb) BMI 44.95 kg/m? ALLERGIES Allergen Reactions - Aspirin Hives, GI Upset - Paper Tape [Other] Rash, Swelling, Itching Area gets very red also - Penicillins Hives ACTIVE PROBLEM LIST Type 2 diabetes mellitus (HCC) Obesity, Unspecified History of Depression Depression Family History Problem Relation Age of Onset - Diabetes Mother - Hypertension Mother - spina bifida [OTHER] Mother - Heart Father - Hypertension Father - Cancer Maternal Grandmother - Alcohol/Drug Maternal Grandmother - Heart Paternal Grandmother - Aneurysm Paternal Grandmother - Stroke Brother - Down Syndrome [OTHER] Brother - autism [OTHER] Brother step brother - seizures and cerebral palsy also - Open family hx of Neural Tube Defect [OTHER] Brother Social History Marital status: Single Spouse name: Years of education: 10 Number of children: 2 Occupational History 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 There is fluid seen adjacent to the gestastional sac possible subchorionic hemorrhage. the left ovary is within normal limits but the right ovary contains a 3.8 x 3 x 3.3 cm moderately complex cyst. TKRN 01/15/2014 - Confirmed 9 x 7 x 2.5 cm multi-loculated cyst at the time of . Needs outpatient follow up via TVUS. - Congenital hip deformity - Diabetes, gestational insulin controlled - Family history of defects 06/09/2013 06/09/2013Patient's mother born with spina bifida. Patient's brother born with a hole in his heart. Patient has another brother that was born with Down syndrome. Patient and her brother born with a congenital hip deformity. Patient has had multiple corrective surgeries for the hip deformity.TKRN - Family history of Down syndrome 06/21/2014 Brother with DS - Family history of spina bifida 06/21/2014 Mom with Spina bifida in wheelchair - Gall stones 2007 Gall bladder removed - History of asthma 06/09/2013 06/09/2013Patient has a history of asthma. She uses an albuterol inhaler when necessary. TKRN - History of 06/09/2013 06/09/2013 Pt had 3 previous C sections. - History of kidney stones - Nausea/vomiting in 06/09/2013 06/09/2013She states she has nausea . Advised patient to call/come in if she has persistent vomiting or if her blood sugars were less than 70. TKRN - Ovarian cyst during 07/21/2014 07/21/14: see NT ultrasound: Right ovarian cyst 6cm - Pain in joint, pelvic region and thigh 01/10/2006 - Pancreatitis - Patient requested diagnostic testing 06/09/2013 06/09/2013 Patient desires early screening in with sequential testing. TKRN - depression - Prior macrosomia, antepartum 06/21/2014 - Short interval between pregnancies complicating , antepartum 06/09/2013 06/09/2013Nikki delivered her previous child August 14, 2012.TKRN - Type 2 diabetes mellitus (HCC) 05/22/2013 - Type 2 diabetes mellitus complicating , antepartum 05/28/2013 06/09/2013Nikki has a history of diabetes diagnosed 4 years ago. She was unaware that she was until she went into labor with her first . With her second she started insulin during the second trimester. She was referred to Dr. Tejada at [facility] for poorly controlled diabetes on metformin alone. She has since started insulin and has an appointment today with Dr. Guevara for followup. She has been keeping track of her blood sugars and presents with a journal today and these blood sugars are copy off and given to Dr. Guevara for his review. I have discussed with the patient the importance of good control of her blood sugars during and keeping a blood sugar log for review by the Doctor. She is reminded that she is to send her blood sugars in weekly to Dr. Guevara and she is to call sooner than a week if she has persistently high, greater the 180, or low blood sugars, less than 70. She is provided with a blood sugar log today. She has not had a diabetic foot or eye exam rece Review of Systems Constitutional: Negative for chills, fever and malaise/fatigue. Genitourinary: Negative for dysuria, flank pain, frequency, hematuria and urgency. Skin: Negative for rash. Neurological: Negative for headaches. Objective Physical Exam Constitutional: She is oriented to person, place, and time and well-developed, well-nourished, and in no distress. HENT: Head: Normocephalic and atraumatic. Eyes: Conjunctivae and EOM are normal. Pupils are equal, round, and reactive to light. Neck: Normal range of motion. Neck supple. Pulmonary/Chest: Effort normal. Abdominal: Soft. Bowel sounds are normal. She exhibits no abdominal bruit, no pulsatile midline mass and no mass. There is no hepatosplenomegaly. There is generalized tenderness. There is no rigidity, no rebound, no guarding, no CVA tenderness, no tenderness at McBurney's point and negative Leiva's sign. On exam there is abdominal tenderness generalized, worse in right lower quadrant on palpation; no masses; bowel sounds are present; no organomegaly; there is no pulsatile mass; no past medical history of AAA. Abdominal exam is limited due to body habitus Past abdominal surgeries none Urine dip negative. Neurological: She is alert and oriented to person, place, and time. Skin: Skin is warm. Psychiatric: Affect normal. Nursing note and vitals reviewed. ASSESSMENT/PLAN: 1. Generalized abdominal pain - ICD9: 789.07, ICD10: R10.84 (primary Due to nature of patient's complaint and lack of investigative tools available at [facility], recommend patient be seen at nearest ED for further work up of abdominal pain.. Patient given directions to [facility], able to drive self, report called. - UA DIP B/O 2. Vaginal itching - ICD9: 698.1, ICD10: N89.8 Diagnosis and treatment plan were discussed and questions were answered to the patient's satisfaction. Pt acknowledged understanding of concepts and follow up plan. Specific signs and symptoms that would indicate the need for higher level of care were discussed in detail warranting prompt ER evaluation. Yolanda Lebron APRN.LAI CNOV Observed: 01/06/2018 Status: COMPLETED Source: [place] 10:[address] [facility] REPOSITORY Office Visit ([facility]) MIRZA DAIGLE ([id number]) 1990 F Date Time Provider Department 01/06/18 10:15 AM YOLANDA LEBRON (LAI) [facility] During your visit today, we recorded the following information about you: Temperature Pulse Respiration Blood pressure 97.8 degrees 78/minute 16/minute 110/68 Weight 130.2 kg Yolanda Lebron APRN.EDUCATIONAL TECHNOLOGY SPECIALIST 01/06/2018 11:03 AM Signed Subjective HPI HPI Mirza Daigle is a 27 year old female who presents today for CC of vomiting x 3 days and abdominal pain. The pain is worsening. She has tried small frequent meals and every time after she eats she vomits. Denies fever. BP 110/68 Pulse 78 Temp 36.6 ?C (97.8 ?F) (Tympanic) Resp 16 Wt 130.2 kg (287 lb) BMI 44.95 kg/m? ALLERGIES Allergen Reactions - Aspirin Hives, GI Upset - Paper Tape [Other] Rash, Swelling, Itching Area gets very red also - Penicillins Hives ACTIVE PROBLEM LIST Type 2 diabetes mellitus (HCC) Obesity, Unspecified History of Depression Depression Family History Problem Relation Age of Onset - Diabetes Mother - Hypertension Mother - spina bifida [OTHER] Mother - Heart Father - Hypertension Father - Cancer Maternal Grandmother - Alcohol/Drug Maternal Grandmother - Heart Paternal Grandmother - Aneurysm Paternal Grandmother - Stroke Brother - Down Syndrome [OTHER] Brother - autism [OTHER] Brother step brother - seizures and cerebral palsy also - Open family hx of Neural Tube Defect [OTHER] Brother Social History Marital status: Single Spouse name: Years of education: 10 Number of children: 2 Occupational History Occupation Employer Comment HOMEMAKER Social History Main Topics Smoking status: Never Smoker Smokeless tobacco: Never Used Comment: mom's fiance smokes outside Alcohol use: No Drug use: No Sexual activity: Yes Partners with: Male PAST MEDICAL HISTORY Diagnosis Date - Anemia WITH 2ND - Asthma since 14 years old, inhaler PRN - Complex ovarian cyst - Needs follow up imaging 06/09/2013 06/09/2013 An ultrasound was done 06/04/2013 that revealed a 6w5d fetus with DELFINA of 01/24/14. There is fluid seen adjacent to the gestastional sac possible subchorionic hemorrhage. the left ovary is within normal limits but the right ovary contains a 3.8 x 3 x 3.3 cm moderately complex cyst. TKRN 01/15/2014 - Confirmed 9 x 7 x 2.5 cm multi-loculated cyst at the time of . Needs outpatient follow up via TVUS. - Congenital hip deformity - Diabetes, gestational insulin controlled - Family history of defects 06/09/2013 06/09/2013Patient's mother born with spina bifida. Patient's brother born with a hole in his heart. Patient has another brother that was born with Down syndrome. Patient and her brother born with a congenital hip deformity. Patient has had multiple corrective surgeries for the hip deformity.TKRN - Family history of Down syndrome 06/21/2014 Brother with DS - Family history of spina bifida 06/21/2014 Mom with Spina bifida in wheelchair - Gall stones 2007 Gall bladder removed - History of asthma 06/09/2013 06/09/2013Patient has a history of asthma. She uses an albuterol inhaler when necessary. TKRN - History of 06/09/2013 06/09/2013 Pt had 3 previous C sections. - History of kidney stones - Nausea/vomiting in 06/09/2013 06/09/2013She states she has nausea . Advised patient to call/come in if she has persistent vomiting or if her blood sugars were less than 70. TKRN - Ovarian cyst during 07/21/2014 07/21/14: see NT ultrasound: Right ovarian cyst 6cm - Pain in joint, pelvic region and thigh 01/10/2006 - Pancreatitis - Patient requested diagnostic testing 06/09/2013 06/09/2013 Patient desires early screening in with sequential testing. TKRN - depression - Prior macrosomia, antepartum 06/21/2014 - Short interval between pregnancies complicating , antepartum 06/09/2013 06/09/2013Nikki delivered her previous child August 14, 2012.TKRN - Type 2 diabetes mellitus (HCC) 05/22/2013 - Type 2 diabetes mellitus complicating , antepartum 05/28/2013 06/09/2013She has a history of diabetes diagnosed 4 years ago. She was unaware that she was until she went into labor with her first . With her second she started insulin during the second trimester. She was referred to Dr. Tejada at [facility] for poorly controlled diabetes on metformin alone. She has since started insulin and has an appointment today with Dr. Guevara for followup. She has been keeping track of her blood sugars and presents with a journal today and these blood sugars are copy off and given to Dr. Guevara for his review. I have discussed with the patient the importance of good control of her blood sugars during and keeping a blood sugar log for review by the Doctor. She is reminded that she is to send her blood sugars in weekly to Dr. Guevara and she is to call sooner than a week if she has persistently high, greater the 180, or low blood sugars, less than 70. She is provided with a blood sugar log today. She has not had a diabetic foot or eye exam rece Review of Systems Constitutional: Negative for chills, fever and malaise/fatigue. Genitourinary: Negative for dysuria, flank pain, frequency, hematuria and urgency. Skin: Negative for rash. Neurological: Negative for headaches. Objective Physical Exam Constitutional: She is oriented to person, place, and time and well-developed, well-nourished, and in no distress. HENT: Head: Normocephalic and atraumatic. Eyes: Conjunctivae and EOM are normal. Pupils are equal, round, and reactive to light. Neck: Normal range of motion. Neck supple. Pulmonary/Chest: Effort normal. Abdominal: Soft. Bowel sounds are normal. She exhibits no abdominal bruit, no pulsatile midline mass and no mass. There is no hepatosplenomegaly. There is generalized tenderness. There is no rigidity, no rebound, no guarding, no CVA tenderness, no tenderness at McBurney's point and negative Leiva's sign. On exam there is abdominal tenderness generalized, worse in right lower quadrant on palpation; no masses; bowel sounds are present; no organomegaly; there is no pulsatile mass; no past medical history of AAA. Abdominal exam is limited due to body habitus Past abdominal surgeries none Urine dip negative. Neurological: She is alert and oriented to person, place, and time. Skin: Skin is warm. Psychiatric: Affect normal. Nursing note and vitals reviewed. ASSESSMENT/PLAN: 1. Generalized abdominal pain - ICD9: 789.07, ICD10: R10.84 (primary Due to nature of patient's complaint and lack of investigative tools available at [facility], recommend patient be seen at nearest ED for further work up of abdominal pain.. Patient given directions to [facility], able to drive self, report called. - UA DIP B/O 2. Vaginal itching - ICD9: 698.1, ICD10: N89.8 Diagnosis and treatment plan were discussed and questions were answered to the patient's satisfaction. Pt acknowledged understanding of concepts and follow up plan. Specific signs and symptoms that would indicate the need for higher level of care were discussed in detail warranting prompt ER evaluation. Yolanda Lebron APRN.EDUCATIONAL TECHNOLOGY SPECIALIST Referring Provider: SELF [[id number]] Allergies As of Date: 01/06/2018 Noted Allergy Reaction ASPIRIN 09/18/2005 4 - Hives 8 - GI Upset paper tape [Other] 06/26/2005 2 - Rash 7 - Swelling 9 - Itching Comments: Area gets very red also PENICILLINS 05/11/2013 4 - Hives Date Reviewed: 01/06/2018 Reviewed by: Bushra Simms Ma - Fully Assessed Reason for Visit: Vaginal Problem [117] Cmt: vaginal itching x 2 days Primary Visit Diagnosis:Generalized abdominal pain [R10.84] Other Visit Diagnosis:Vaginal itching [N89.8] Order(s):UA DIP B/O [5278601] Order #: [id number] Prescriptions as of 01/06/2018 Sig: TRAMADOL 50 MG TABLET Take 1 tablet by mouth every * MELOXICAM 15 MG TABLET Take 1 tablet by mouth once d* PANTOPRAZOLE 40 MG TABLET,DEL* Take 1 tablet by mouth once d* BLOOD SUGAR DIAGNOSTIC STRIPS Use as directed 4 times daily. TRIAMCINOLONE ACETONIDE 0.025* Apply 1 application to affect* METFORMIN ER 500 MG TABLET,EX* TAKE TWO TABLETS BY MOUTH WIT* LIRAGLUTIDE 0.6 MG/0.1 ML (18* Inject 1.2 mg subcutaneously * INSULIN GLARGINE (U-100) 100 * Inject 40 Units subcutaneousl* COMPOUNDED PRESCRIPTION One Touch meter kit. LANCETS Test blood sugar(s) 5 times * FAMOTIDINE 20 MG TABLET Take 1 tablet by mouth daily * ESCITALOPRAM 20 MG TABLET Take 1 tablet by mouth once d* ALCOHOL SWABS Use as directed up to 5 times* EMPTY CONTAINER 1 Can twice daily. PEN NEEDLE, DIABETIC 31 GAUGE* One daily with insulin COMPOUNDED PRESCRIPTION 1 Each as needed. Sharps Cont* EMPTY CONTAINER 1 Container as needed (to dis* LANCETS Use as instructed Problem List As Of Date 01/06/2018 Noted Resolved Type 2 diabetes mellitus (HCC) [E11.9] INVALID FOR* More... More... More... Obesity, unspecified [E66.9] INVALID FOR* More... History of flank pain [Z87.898] INVALID FOR*06/21/2014 More... More... More... History of depression [Z86.59] INVALID FOR* More... More... More... More... More... More... More... Depression [F32.9] INVALID FOR* Encounter Status:Closed by YOLANDA LEBRON CNP on 01/06/18 CNOV Observed: 01/02/2018 Status: COMPLETED Source: [place] 1:[address] [facility] REPOSITORY Office Visit (FAMPWS) MIRZA DAIGLE ([id number]) 1990 F Date Time Provider Department 01/02/18 1:40 PM [facility] ROMAN ([facility] During your visit today, we recorded the following information about you: Pulse Respiration Blood pressure Weight 78/minute 14/minute 122/76 131.1 kg Tara Roman APRN.CNP 01/02/2018 3:34 PM Signed This is a 27 year old female who presents today with: Patient presents with: Right Hip Pain HISTORY OF PRESENT ILLNESS: Mirza Daigle is a 27 year old female. Patient presents with: Right Hip Pain Pt presents today for ongoing right hip pain and right hip giving out. Refers that she recently dropped her child when she was carrying her child down the steps. Refers that her insurance had lapsed. Was without insulin for awhile - -refers that she managed to keep sugars less than 300. Refers that she now has insurance. Refers that she is back on her insulin now. Refers that it hurts to lay in bed. Refers that she slept on the couch for the last month. Hip pain affecting sleep. Worse as the day goes on. Antiinflammatories not helping. Scheduled for PT and ortho. PT - 01/14 Ortho - 01/13 PAST MEDICAL HISTORY: PAST MEDICAL HISTORY Diagnosis Date - Anemia WITH 2ND - Asthma since 14 years old, inhaler PRN - Complex ovarian cyst - Needs follow up imaging 06/09/2013 06/09/2013 An ultrasound was done 06/04/2013 that revealed a 6w5d fetus with DELFINA of 01/24/14. There is fluid seen adjacent to the gestastional sac possible subchorionic hemorrhage. the left ovary is within normal limits but the right ovary contains a 3.8 x 3 x 3.3 cm moderately complex cyst. TKRN 01/15/2014 - Confirmed 9 x 7 x 2.5 cm multi-loculated cyst at the time of . Needs outpatient follow up via TVUS. - Congenital hip deformity - Diabetes, gestational insulin controlled - Family history of defects 06/09/2013 06/09/2013Patient's mother born with spina bifida. Patient's brother born with a hole in his heart. Patient has another brother that was born with Down syndrome. Patient and her brother born with a congenital hip deformity. Patient has had multiple corrective surgeries for the hip deformity.TKRN - Family history of Down syndrome 06/21/2014 Brother with DS - Family history of spina bifida 06/21/2014 Mom with Spina bifida in wheelchair - Gall stones 2007 Gall bladder removed - History of asthma 06/09/2013 06/09/2013Patient has a history of asthma. She uses an albuterol inhaler when necessary. TKRN - History of 06/09/2013 06/09/2013 Pt had 3 previous C sections. - History of kidney stones - Nausea/vomiting in 06/09/2013 06/09/2013She states she has nausea . Advised patient to call/come in if she has persistent vomiting or if her blood sugars were less than 70. TKRN - Ovarian cyst during 07/21/2014 07/21/14: see NT ultrasound: Right ovarian cyst 6cm - Pain in joint, pelvic region and thigh 01/10/2006 - Pancreatitis - Patient requested diagnostic testing 06/09/2013 06/09/2013 Patient desires early screening in with sequential testing. TKRN - depression - Prior macrosomia, antepartum 06/21/2014 - Short interval between pregnancies complicating , antepartum 06/09/2013 06/09/2013Nikki delivered her previous child August 14, 2012.TKRN - Type 2 diabetes mellitus (HCC) 05/22/2013 - Type 2 diabetes mellitus complicating , antepartum 05/28/2013 06/09/2013Nikki has a history of diabetes diagnosed 4 years ago. She was unaware that she was until she went into labor with her first . With her second she started insulin during the second trimester. She was referred to Dr. Tejada at [facility] for poorly controlled diabetes on metformin alone. She has since started insulin and has an appointment today with Dr. Guevara for followup. She has been keeping track of her blood sugars and presents with a journal today and these blood sugars are copy off and given to Dr. Guevara for his review. I have discussed with the patient the importance of good control of her blood sugars during and keeping a blood sugar log for review by the Doctor. She is reminded that she is to send her blood sugars in weekly to Dr. Guevara and she is to call sooner than a week if she has persistently high, greater the 180, or low blood sugars, less than 70. She is provided with a blood sugar log today. She has not had a diabetic foot or eye exam rece PAST SURGICAL HISTORY Procedure Laterality Date - DELIVERY ONLY , low transverse x3 - DELIVERY ONLY 01/19/15 , low transverse - IANDD ABSC; SMPL OR SGL 05/2013 cyst on left upper chest - LAPAROSCOPIC CHOLEYCYSTECTOMY Cholecystectomy, lap - PAST SURGICAL HISTORY OF tubes in ears per Dr Crockett at [facility] - PAST SURGICAL HISTORY OF Tonsils and Adenoids removed per Dr Crockett at [facility] - PAST SURGICAL HISTORY OF [address] Marroquin at [facility] - REMOVAL OF OVARY/TUBE(S) 01/19/15 Salpingo-oophorectomy, right ovarian mass ALLERGIES Aspirin; Paper Tape [Other]; Penicillins MEDICATIONS Current Outpatient Prescriptions: meloxicam (MOBIC) 15 mg tablet Take 1 tablet by mouth once daily. X 10 days, then daily as needed with food. pantoprazole DR (PROTONIX) 40 mg tablet Take 1 tablet by mouth once daily. blood sugar diagnostic (FREESTYLE LITE STRIPS) test strip Use as directed 4 times daily. triamcinolone (KENALOG) 0.025 % cream Apply 1 application to affected area twice daily. metFORMIN ER (GLUCOPHAGE XR) 500 mg 24 hr tablet TAKE TWO TABLETS BY MOUTH WITH BREAKFAST AND TWO TABLETS WITH SUPPER liraglutide (VICTOZA 2-WILLIAM) 0.6 mg/0.1 mL (18 mg/3 mL) pnij Inject 1.2 mg subcutaneously once daily. insulin glargine (BASAGLAR KWIKPEN U-100 INSULIN) 100 unit/mL (3 mL) inpn Inject 40 Units subcutaneously daily at bedtime. COMPOUNDED PRESCRIPTION One Touch meter kit. Lancets (ONETOUCH ULTRASOFT LANCETS) lancets Test blood sugar(s) 5 times daily. Dx: Type 2 DM - Controlled E11.9 , Insulin: yes famotidine (PEPCID) 20 mg tablet Take 1 tablet by mouth daily at bedtime. escitalopram oxalate (LEXAPRO) 20 mg tablet Take 1 tablet by mouth once daily. Alcohol Swabs padm Use as directed up to 5 times daily DM: yes Insulin: yes DX: E.11.9 Oral Medication Containers (SHARPS CONTAINER) misc 1 Can twice daily. insulin needles, DISPOSABLE, (PEN NEEDLE) 31 gauge x 5/16 ndle One daily with insulin COMPOUNDED PRESCRIPTION 1 Each as needed. Sharps Container. Dx:Diabetes mellitus, antepartum (648.03) Oral Medication Containers (BD SHARPS PRIVATE BANKER) misc 1 Container as needed (to disopse of insulin needles). Lancets (ONE TOUCH SURESOFT LANCING DEV) lancets Use as instructed No current facility-administered medications for this visit. FAMILY HISTORY Problem Relation Age of Onset - Diabetes Mother - Hypertension Mother - spina bifida [OTHER] Mother - Heart Father - Hypertension Father - Cancer Maternal Grandmother - Alcohol/Drug Maternal Grandmother - Heart Paternal Grandmother - Aneurysm Paternal Grandmother - Stroke Brother - Down Syndrome [OTHER] Brother - autism [OTHER] Brother step brother - seizures and cerebral palsy also - Open family hx of Neural Tube Defect [OTHER] Brother Social History Marital status: Single Spouse name: Years of education: 10 Number of children: 2 Occupational History Occupation Employer Comment HOMEMAKER Social History Main Topics Smoking status: Never Smoker Smokeless tobacco: Never Used Comment: mom's fiance smokes outside Alcohol use: No Drug use: No Sexual activity: Yes Partners with: Male EXAM: BP 122/76 (BP Site: Left Arm, BP Position: Sitting, BP Cuff Size: Large Adult) Pulse 78 Resp 14 Wt 131.1 kg (289 lb) BMI 45.26 kg/m? PHYSICAL EXAM: General Appearance: Well appearing, alert, in no acute distress, well-hydrated, well nourished.. Skin: Skin color, texture, turgor normal, no suspicious rashes or lesions. Head: Normocephalic, no masses, lesions, tenderness or abnormalities. Eyes: Anicteric sclera. Extraocular movements are intact. Extremities: Pain with palpation of the right hip. Flexion/extension okay. Discomfort with internal rotation, abduction/adduction. Good capillary refill. Neurologic: Gait normal. ASSESSMENT/PLAN: 1. Pain of right hip joint - ICD9: 719.45, ICD10: M25.551 NSAIDS not working. Pt is diabetic that just recently restarted her insulin -- need to try to avoid prednisone. Will give limited tramadol to help with pain -- aware this can cause fatigue. - TRAMADOL 50 MG TABLET PDMP website checked and validated. All prescriptions have been APPROPRIATELY filled. No suspicious activity was identified. 01/02/2018 by Tara Roman APRN.EDUCATIONAL TECHNOLOGY SPECIALIST Keep f/u with ortho and PT. Discussed treatment plan and patient voices understanding. Patient's questions answered appropriately. Medications and potential side effects were discussed and patient voices understanding. Return to the office as scheduled or as needed for worsening/no improvement. Tara Roman APRN.EDUCATIONAL TECHNOLOGY SPECIALIST Referring Provider: TARA ROMAN ([facility]) [[id number]] Allergies As of Date: 01/02/2018 Noted Allergy Reaction ASPIRIN 09/18/2005 4 - Hives 8 - GI Upset paper tape [Other] 06/26/2005 2 - Rash 7 - Swelling 9 - Itching Comments: Area gets very red also PENICILLINS 05/11/2013 4 - Hives Date Reviewed: 01/02/2018 Reviewed by: Kaylin Molina Cma - Fully Assessed Reason for Visit: Right Hip Pain [1554] Primary Visit Diagnosis:Pain of right hip joint [M25.551] Order(s):traMADol (ULTRAM) 50 mg tabletTake 1 tablet by mouth every 8 hours as needed for Pain for up to 7 days.Disp: 21 tabletRfl: 0 Prescriptions as of 01/02/2018 Sig: MELOXICAM 15 MG TABLET Take 1 tablet by mouth once d* PANTOPRAZOLE 40 MG TABLET,DEL* Take 1 tablet by mouth once d* BLOOD SUGAR DIAGNOSTIC STRIPS Use as directed 4 times daily. TRIAMCINOLONE ACETONIDE 0.025* Apply 1 application to affect* METFORMIN ER 500 MG TABLET,EX* TAKE TWO TABLETS BY MOUTH WIT* LIRAGLUTIDE 0.6 MG/0.1 ML (18* Inject 1.2 mg subcutaneously * INSULIN GLARGINE (U-100) 100 * Inject 40 Units subcutaneousl* COMPOUNDED PRESCRIPTION One Touch meter kit. LANCETS Test blood sugar(s) 5 times * FAMOTIDINE 20 MG TABLET Take 1 tablet by mouth daily * ESCITALOPRAM 20 MG TABLET Take 1 tablet by mouth once d* ALCOHOL SWABS Use as directed up to 5 times* EMPTY CONTAINER 1 Can twice daily. PEN NEEDLE, DIABETIC 31 GAUGE* One daily with insulin COMPOUNDED PRESCRIPTION 1 Each as needed. Sharps Cont* EMPTY CONTAINER 1 Container as needed (to dis* LANCETS Use as instructed TRAMADOL 50 MG TABLET Take 1 tablet by mouth every * Problem List As Of Date 01/02/2018 Noted Resolved Type 2 diabetes mellitus (HCC) [E11.9] INVALID FOR* More... More... More... Obesity, unspecified [E66.9] INVALID FOR* More... History of flank pain [Z87.898] INVALID FOR*06/21/2014 More... More... More... History of depression [Z86.59] INVALID FOR* More... More... More... More... More... More... More... Depression [F32.9] INVALID FOR* Prescriptions ordered this encounter Disp Refills Start End TRAMADOL 50 MG TABLET 21 t* 0 01/02/2018 01/09/2018 Class: Print RX Route: ORAL Sig: Take 1 tablet by mouth every 8 hours as needed for Pain for up to 7 days. Encounter Status:Closed by TARA ROMAN CNP on 01/02/18 PROGRESS Observed: 01/02/2018 Status: COMPLETED Source: [place] 1:35 PM [facility] REPOSITORY HNO ID: [id number] Author: Tara (Lai) Jessie Service: (none) Author Type: Nurse Practitioner Type: Progress Notes Filed: 01/02/2018 3:34 PM Note Text: This is a 27 year old female who presents today with: Patient presents with: Right Hip Pain HISTORY OF PRESENT ILLNESS: Mirza Daigle is a 27 year old female. Patient presents with: Right Hip Pain Pt presents today for ongoing right hip pain and right hip giving out. Refers that she recently dropped her child when she was carrying her child down the steps. Refers that her insurance had lapsed. Was without insulin for awhile - -refers that she managed to keep sugars less than 300. Refers that she now has insurance. Refers that she is back on her insulin now. Refers that it hurts to lay in bed. Refers that she slept on the couch for the last month. Hip pain affecting sleep. Worse as the day goes on. Antiinflammatories not helping. Scheduled for PT and ortho. PT - 01/14 Ortho - 01/13 PAST MEDICAL HISTORY: PAST MEDICAL HISTORY Diagnosis Date - Anemia WITH 2ND - Asthma since 14 years old, inhaler PRN - Complex ovarian cyst - Needs follow up imaging 06/09/2013 06/09/2013 An ultrasound was done 06/04/2013 that revealed a 6w5d fetus with DELFINA of 01/24/14. There is fluid seen adjacent to the gestastional sac possible subchorionic hemorrhage. the left ovary is within normal limits but the right ovary contains a 3.8 x 3 x 3.3 cm moderately complex cyst. TKRN 01/15/2014 - Confirmed 9 x 7 x 2.5 cm multi-loculated cyst at the time of . Needs outpatient follow up via [facility]. - Congenital hip deformity - Diabetes, gestational insulin controlled - Family history of defects 06/09/2013 06/09/2013Patient's mother born with spina bifida. Patient's brother born with a hole in his heart. Patient has another brother that was born with Down syndrome. Patient and her brother born with a congenital hip deformity. Patient has had multiple corrective surgeries for the hip deformity.TKRN - Family history of Down syndrome 06/21/2014 Brother with DS - Family history of spina bifida 06/21/2014 Mom with Spina bifida in wheelchair - Gall stones 2007 Gall bladder removed - History of asthma 06/09/2013 06/09/2013Patient has a history of asthma. She uses an albuterol inhaler when necessary. TKRN - History of 06/09/2013 06/09/2013 Pt had 3 previous C sections. - History of kidney stones - Nausea/vomiting in 06/09/2013 06/09/2013She states she has nausea . Advised patient to call/come in if she has persistent vomiting or if her blood sugars were less than 70. TKRN - Ovarian cyst during 07/21/2014 07/21/14: see NT ultrasound: Right ovarian cyst 6cm - Pain in joint, pelvic region and thigh 01/10/2006 - Pancreatitis - Patient requested diagnostic testing 06/09/2013 06/09/2013 Patient desires early screening in with sequential testing. TKRN - depression - Prior macrosomia, antepartum 06/21/2014 - Short interval between pregnancies complicating , antepartum 06/09/2013 06/09/2013Nikki delivered her previous child August 14, 2012.TKRN - Type 2 diabetes mellitus (HCC) 05/22/2013 - Type 2 diabetes mellitus complicating , antepartum 05/28/2013 06/09/2013Nikki has a history of diabetes diagnosed 4 years ago. She was unaware that she was until she went into labor with her first . With her second she started insulin during the second trimester. She was referred to Dr. Tejada at [facility] for poorly controlled diabetes on metformin alone. She has since started insulin and has an appointment today with Dr. Guevara for followup. She has been keeping track of her blood sugars and presents with a journal today and these blood sugars are copy off and given to Dr. Guevara for his review. I have discussed with the patient the importance of good control of her blood sugars during and keeping a blood sugar log for review by the Doctor. She is reminded that she is to send her blood sugars in weekly to Dr. Guevara and she is to call sooner than a week if she has persistently high, greater the 180, or low blood sugars, less than 70. She is provided with a blood sugar log today. She has not had a diabetic foot or eye exam rece PAST SURGICAL HISTORY Procedure Laterality Date - DELIVERY ONLY , low transverse x3 - DELIVERY ONLY 01/19/15 , low transverse - IANDD ABSC; SMPL OR SGL 05/2013 cyst on left upper chest - LAPAROSCOPIC CHOLEYCYSTECTOMY Cholecystectomy, lap - PAST SURGICAL HISTORY OF tubes in ears per Dr Crockett at [facility] - PAST SURGICAL HISTORY OF Tonsils and Adenoids removed per Dr Crockett at [facility] - PAST SURGICAL HISTORY OF [address] Marroquin at [facility] - REMOVAL OF OVARY/TUBE(S) 01/19/15 Salpingo-oophorectomy, right ovarian mass ALLERGIES Aspirin; Paper Tape [Other]; Penicillins MEDICATIONS Current Outpatient Prescriptions: meloxicam (MOBIC) 15 mg tablet Take 1 tablet by mouth once daily. X 10 days, then daily as needed with food. pantoprazole DR (PROTONIX) 40 mg tablet Take 1 tablet by mouth once daily. blood sugar diagnostic (FREESTYLE LITE STRIPS) test strip Use as directed 4 times daily. triamcinolone (KENALOG) 0.025 % cream Apply 1 application to affected area twice daily. metFORMIN ER (GLUCOPHAGE XR) 500 mg 24 hr tablet TAKE TWO TABLETS BY MOUTH WITH BREAKFAST AND TWO TABLETS WITH SUPPER liraglutide (VICTOZA 2-WILLIAM) 0.6 mg/0.1 mL (18 mg/3 mL) pnij Inject 1.2 mg subcutaneously once daily. insulin glargine (BASAGLAR KWIKPEN U-100 INSULIN) 100 unit/mL (3 mL) inpn Inject 40 Units subcutaneously daily at bedtime. COMPOUNDED PRESCRIPTION One Touch meter kit. Lancets (ONETOUCH ULTRASOFT LANCETS) lancets Test blood sugar(s) 5 times daily. Dx: Type 2 DM - Controlled E11.9 , Insulin: yes famotidine (PEPCID) 20 mg tablet Take 1 tablet by mouth daily at bedtime. escitalopram oxalate (LEXAPRO) 20 mg tablet Take 1 tablet by mouth once daily. Alcohol Swabs padm Use as directed up to 5 times daily DM: yes Insulin: yes DX: E.11.9 Oral Medication Containers (SHARPS CONTAINER) misc 1 Can twice daily. insulin needles, DISPOSABLE, (PEN NEEDLE) 31 gauge x 5/16 ndle One daily with insulin COMPOUNDED PRESCRIPTION 1 Each as needed. Sharps Container. Dx:Diabetes mellitus, antepartum (648.03) Oral Medication Containers (BD SHARPS PRIVATE BANKER) misc 1 Container as needed (to disopse of insulin needles). Lancets (ONE TOUCH SURESOFT LANCING DEV) lancets Use as instructed No current facility-administered medications for this visit. FAMILY HISTORY Problem Relation Age of Onset - Diabetes Mother - Hypertension Mother - spina bifida [OTHER] Mother - Heart Father - Hypertension Father - Cancer Maternal Grandmother - Alcohol/Drug Maternal Grandmother - Heart Paternal Grandmother - Aneurysm Paternal Grandmother - Stroke Brother - Down Syndrome [OTHER] Brother - autism [OTHER] Brother step brother - seizures and cerebral palsy also - Open family hx of Neural Tube Defect [OTHER] Brother Social History Marital status: Single Spouse name: Years of education: 10 Number of children: 2 Occupational History Occupation Employer Comment HOMEMAKER Social History Main Topics Smoking status: Never Smoker Smokeless tobacco: Never Used Comment: mom's fiance smokes outside Alcohol use: No Drug use: No Sexual activity: Yes Partners with: Male EXAM: BP 122/76 (BP Site: Left Arm, BP Position: Sitting, BP Cuff Size: Large Adult) Pulse 78 Resp 14 Wt 131.1 kg (289 lb) BMI 45.26 kg/m? PHYSICAL EXAM: General Appearance: Well appearing, alert, in no acute distress, well-hydrated, well nourished.. Skin: Skin color, texture, turgor normal, no suspicious rashes or lesions. Head: Normocephalic, no masses, lesions, tenderness or abnormalities. Eyes: Anicteric sclera. Extraocular movements are intact. Extremities: Pain with palpation of the right hip. Flexion/extension okay. Discomfort with internal rotation, abduction/adduction. Good capillary refill. Neurologic: Gait normal. ASSESSMENT/PLAN: 1. Pain of right hip joint - ICD9: 719.45, ICD10: M25.551 NSAIDS not working. Pt is diabetic that just recently restarted her insulin -- need to try to avoid prednisone. Will give limited tramadol to help with pain -- aware this can cause fatigue. - TRAMADOL 50 MG TABLET PDMP website checked and validated. All prescriptions have been APPROPRIATELY filled. No suspicious activity was identified. 01/02/2018 by Tara Roman APRN.EDUCATIONAL TECHNOLOGY SPECIALIST Keep f/u with ortho and PT. Discussed treatment plan and patient voices understanding. Patient's questions answered appropriately. Medications and potential side effects were discussed and patient voices understanding. Return to the office as scheduled or as needed for worsening/no improvement. Tara Roman APRN.EDUCATIONAL TECHNOLOGY SPECIALIST CNCO Observed: 11/26/2017 Status: COMPLETED Source: [place] 12:00 AM [facility] REPOSITORY Letter Text Brice Recio MD [facility] [address] [place] [address] Mirza Daigle November 26, 2017 Mirza Daigle [address] [facility] [address] Dear Ms. Daigle, It was noted that you did not keep your scheduled appointment on 11/26/2017. It is important to contact the office in advance if you are unable to keep your appointment so that it is available for other patients. Your medical care is important to us. Please call our office to reschedule an appointment. Sincerely, Brice Recio MD DISCHARGE INSTRUCTION Observed: 11/19/2017 Status: F Source: [place] 3:42 PM [facility] Medical Records Department [address] [place] [id number] Discharge Instruction 11/19/17 154 MR#: [id number] Acct: [id number] Name: MIRZA DAIGLE Rep #: [id number] : 1990 27 From: Yobani Herron DO PCP: Sunny Wells MD Status: REG ER ED Disposition - Plan for ED Patient: Chief Complaint: Cold Sx Instructions: ED Tooth Pain, ED Headache Migraine Prescriptions: Clindamycin HCl [Cleocin] 300 mg PO Q6H #40 cap Referrals: Sunny Wells MD [Primary Care Provider] - 3-5 Days Additional Instructions: see a dentist What to do if you have Problems For any increased pain, shortness of breath, bleeding, nausea or vomiting, chest pain, or any unexpected problems, contact your Primary Care Provider. Call [facility] ([phone]) or report to the closest Emergency Room. Call 911 if necessary. 11/19/17 1542 <Electronically signed by Yobani Herron DO> Date Remus Ungur DO Cosigner Signature (If Indicated): Date CC: Sunny Wells MD EMERGENCY DEPARTMENT Observed: 11/19/2017 Status: F Source: [place] SUMMARY 3:41 PM [facility] Medical Records Department [address] [place] [address] Emergency Department Summary 11/19/17 1538 MR#: [id number] Acct: [id number] Name: MIRZA DAIGLE Rep #: [id number] : 1990 27 From: Yobani Herron DO PCP: Sunny Wells MD Status: REG ER - ER Visit Summary Date of Service: 11/19/17 Chief Complaint: [Ni, bleeding from right ear, right facial pain] History of Present Illness: The patient is a 27 F [presents to the emergency department complaint of a headache 2 days. Patient states she woke up with it 2 days ago. Today patient is vomited 4. Patient also states that this morning she noticed that she had blood from the right ear. Patient denies any trauma to her ear. Patient does use some sort of a curette or Q-tip to clean her ears. Patient also complaining of right- sided facial pain. She has had no fever. No significant cough or sore throat. Patient has had headaches in the past that have been similar. She does complain of photophobia. She has had no head trauma.] Physical Examination: [HEENT-PERRLA, EOMI. Cranial nerves II through XII grossly intact. TMs clear. Mucous membranes moist. No adenopathy. Evaluation of the right ear canal does reveal a small abrasion to the inferior floor of the canal with no active bleeding although there was small amount of clot noted there. The tympanic membrane appears to be intact without evidence of perforation. There is no evidence of infection. Patient does have tenderness palpation over right lower third molar that reproduces a lot of her facial discomfort. There is no evidence of dental abscess. No facial erythema or cellulitis noted. Cardiovascular-regular rate and rhythm without murmur or ectopy Lungs-clear to auscultation, chest wall stable without crepitus or subcu emphysema Abdomen-normoactive bowel sounds, soft, nontender, no rebound or rigidity, no peritoneal signs. Neuro wmri-[id number] and heel to landa testing within normal limits, negative Romberg, negative pronator drift, fundi benign Extremities-intact 4, normal range of motion, normal pulses, atraumatic] Test Results: None indicated] Emergency Department Course and Treatment: An IV line was established and patient was given a liter normal same fluid bolus as well as Reglan, Benadryl, and Toradol and her headache resolved. Patient was started on Cortisporin otic suspension. [] Treatment Plan: [Patient will be dispensed Cortisporin Otic suspension as well as clindamycin. Patient advised to use Tylenol for discomfort.] Disposition: [Discharged to home in stable condition. Patient advised to follow-up with the dentist within the next 5-7 days.] Impression: [Migrainous cephalgia-resolved Abrasion right ear canal Dental pain] This note was generated with [employer] dictation software. It may contain incorrect words, spelling, and punctuation that were not noted in review of the chart prior to signing ED Disposition - Plan for ED Patient: Chief Complaint: Cold Sx Referrals: Sunny Wells MD [Primary Care Provider] - What to do if you have Problems For any increased pain, shortness of breath, bleeding, nausea or vomiting, chest pain, or any unexpected problems, contact your Primary Care Provider. Call [facility] ([phone]) or report to the closest Emergency Room. Call 911 if necessary. 11/19/17 1541 <Electronically signed by Yobani Herron DO> Date Yobani Herron DO Cosigner Signature (If Indicated): Date CC: Sunny Wells MD PROGRESS Observed: 11/13/2017 Status: COMPLETED Source: [place] 3:[address] [facility] REPOSITORY HNO ID: [id number] Author: Jeannette Bill Service: (none) Author Type: Registered Nurse Type: Progress Notes Filed: 01/09/2018 9:57 AM Note Text: PRIMARY CARE COORDINATION FOLLOW-UP NOTE Provider Action/FYI Discussed diet control for DM. Explained albumin and relationship. Strongly enc PT. Patient identified by name and date of . YES Spoke to patient Summary: Called pt and LMOM with lengthy explanation about XR and strongly encouraged her to keep PT appt and do exercises prescribed religiously. Pt called me back and I discussed again the recommendations and she understands. She is talking to her son at the same time so question how much she is really listening and willing to change. Concerns: Pt's urine albumin levels pretty high and explained effect on kidneys of uncontrolled DM and importance of more strict control. Attempted to broach subject of more plant based diet but not very receptive. Leather [employer] Artisan plan for next outreach: [facility] Signature Jeannette Bill cardiopulmonary technologist Postpartum Rn Internal Medicine [facility] November 13, 2017 LAITOUTREACH Observed: 11/13/2017 Status: COMPLETED Source: [place] 12:[address] [facility] REPOSITORY Patient Outreach (INTMWS) MIRZA DAIGLE ([id number]) 1990 F Date Time Provider Department 11/13/17 JEANNETTE BUSBY During your visit today, we recorded the following information about you: Jeannette Olmstead RN 01/09/2018 9:57 AM Signed PRIMARY CARE COORDINATION FOLLOW-UP NOTE Provider Action/FYI Discussed diet control for DM. Explained albumin and relationship. Strongly enc PT. Patient identified by name and date of . YES Spoke to patient Summary: Called pt and LMOM with lengthy explanation about XR and strongly encouraged her to keep PT appt and do exercises prescribed religiously. Pt called me back and I discussed again the recommendations and she understands. She is talking to her son at the same time so question how much she is really listening and willing to change. Concerns: Pt's urine albumin levels pretty high and explained effect on kidneys of uncontrolled DM and importance of more strict control. Attempted to broach subject of more plant based diet but not very receptive. Leather Production Artisan plan for next outreach: Will follow up in a month at appt. Signature Jeannette Bill RN Ambulatory Postpartum Rn Internal Medicine [facility] November 13, 2017 Allergies As of Date: 11/13/2017 Noted Allergy Reaction ASPIRIN 09/18/2005 4 - Hives 8 - GI Upset paper tape [Other] 06/26/2005 2 - Rash 7 - Swelling 9 - Itching Comments: Area gets very red also PENICILLINS 05/11/2013 4 - Hives Date Reviewed: 11/11/2017 Reviewed by: Kaylin Molina Graphic Manager - Fully Assessed Reason for Visit: Postpartum Rn Chronic Care [2718] Prescriptions as of 11/13/2017 Sig: MELOXICAM 15 MG TABLET Take 1 tablet by mouth once d* PANTOPRAZOLE 40 MG TABLET,DEL* Take 1 tablet by mouth once d* BLOOD SUGAR DIAGNOSTIC STRIPS Use as directed 4 times daily. TRIAMCINOLONE ACETONIDE 0.025* Apply 1 application to affect* METFORMIN ER 500 MG TABLET,EX* TAKE TWO TABLETS BY MOUTH WIT* LIRAGLUTIDE 0.6 MG/0.1 ML (18* Inject 1.2 mg subcutaneously * INSULIN GLARGINE (U-100) 100 * Inject 40 Units subcutaneousl* COMPOUNDED PRESCRIPTION One Touch meter kit. LANCETS Test blood sugar(s) 5 times * FAMOTIDINE 20 MG TABLET Take 1 tablet by mouth daily * X ESCITALOPRAM 20 MG TABLET Take 1 tablet by mouth once d* ALCOHOL SWABS Use as directed up to 5 times* EMPTY CONTAINER 1 Can twice daily. PEN NEEDLE, DIABETIC 31 GAUGE* One daily with insulin COMPOUNDED PRESCRIPTION 1 Each as needed. Sharps Cont* EMPTY CONTAINER 1 Container as needed (to dis* LANCETS Use as instructed Problem List As Of Date 11/13/2017 Noted Resolved Type 2 diabetes mellitus (HCC) [E11.9] INVALID FOR* More... More... More... Obesity, unspecified [E66.9] INVALID FOR* More... History of flank pain [Z87.898] INVALID FOR*06/21/2014 More... More... More... History of depression [Z86.59] INVALID FOR* More... More... More... More... More... More... More... Depression [F32.9] INVALID FOR* Encounter Status:Closed by JEANNETTE BILL on 01/09/18 US THYROID/PARATHYROID Observed: 11/12/2017 Status: F Source: [place] 9:[address] [facility] REPOSITORY * * *Final Report* * * DATE OF EXAM: Nov 12 2017 9:16AM [facility] 1048 - US THYROID/PARATHYROID / PROCEDURE REASON: Localized swelling, mass and lump, neck * * * * Physician Interpretation * * * * THYROID ULTRASOUND CLINICAL HISTORY: Anterior neck pain and swelling for a month COMPARISON: None. TECHNIQUE: Sonography and Doppler imaging of the thyroid was performed. Images were obtained and stored in a permanent archive. RESULT: RIGHT LOBE: Size: 6.2x 1.5x 2.2 cm Echotexture: Homogeneous Nodules: None. LEFT LOBE: Size: 5.3x 1.5x 2.0 cm Echotexture: Homogeneous Nodules: None. ISTHMUS: AP diameter: 3 mm Nodules: None. IMPRESSION: NORMAL THYROID ULTRASOUND Plastic Card Grader Cardroom: XIAO Transcribe Date/Time: Nov 12 2017 11:11A Dictated by : HENRY CHAMBERLAIN MD This examination was interpreted and the report reviewed and electronically signed by: HENRY CHAMBERLAIN MD on Nov 12 2017 11:13AM EST [id number] PROGRESS Observed: 11/12/2017 Status: COMPLETED Source: [place] 8:[address] [facility] REPOSITORY HNO ID: [id number] Author: Marlen Gardner Rdms Service: (none) Author Type: (none) Type: Progress Notes Filed: 11/12/2017 9:17 AM Note Text: Radiology Service Progress Note PATIENT NAME: Mirza Daigle DATE OF SERVICE: November 12, 2017 TIME: 8:52 AM PATIENT IDENTITY VERIFICATION COMPLETED USING TWO (2) METHODS: Patient confirmed name verbally and Date of . PATIENT GENDER DATA: Female. status: : No status: NO. PATIENT RELEVANT IMPLANT DATA REVIEWED: Not Applicable RADIOLOGY DEPARTMENT: Ultrasound PERIPHERAL IV DATA: Not applicable SIGNED BY: Marlen Gardner Rdms November 12, 2017 8:52 AM PROGRESS Observed: 11/11/2017 Status: COMPLETED Source: [place] 2:[address] [facility] REPOSITORY HNO ID: [id number] Author: Hannah Larkin (Rt) Cathie Lara Service: (none) Author Type: [place] Type: Progress Notes Filed: 11/11/2017 2:57 PM Note Text: Radiology Service Progress Note PATIENT NAME: Mirza Daigle DATE OF SERVICE: November 11, 2017 TIME: 2:57 PM PATIENT IDENTITY VERIFICATION COMPLETED USING TWO (2) METHODS: Patient confirmed name verbally and Date of . PATIENT GENDER DATA: Female. status: : No status: NO. PATIENT RELEVANT IMPLANT DATA REVIEWED: Not Applicable RADIOLOGY DEPARTMENT: General X-ray: Exam(s) Completed: Pelvis X-Ray: Pelvis with Hip Right PERIPHERAL IV DATA: Not applicable SIGNED BY: RT Gema November 11, 2017 2:57 PM PROGRESS Observed: 11/11/2017 Status: COMPLETED Source: [place] 2:[address] [facility] REPOSITORY HNO ID: [id number] Author: Jeannette Bill Service: (none) Author Type: Registered Nurse Type: Progress Notes Filed: 11/11/2017 3:04 PM Note Text: PRIMARY CARE COORDINATION IN OFFICE VISIT WITH PCP Patient has been identified by name and date of . PCP Assessment/Plan: Reviewed PCP plan with patient using Teach Back Pt has not done A1c since Feb. Will get labs, XRs, Ortho consult and PT consult. PCC Plan of Care: Patient concerns: R hip pops and hurts. Used to occur occasionally. Now it is constant. Difficulty walking, sleeping due to pain. Patient goals: To regain R hip function w/o pain. PCC Interventions: Discussed weight management to help hip. She weighs 290#. States all BSs running about 130 regardless of when she is remembering her numbers. Will await A1c. She complains of pain when she goes to [employer]. Enc her to try PT, do water exercises at the pool. She has PT appt and appt w/Dr Recio scheduled. Next Office Visit: Visit date not found Plan For Next Call: Will call with results of XRs and labs once reviewed by PHILOSOPHY INSTRUCTOR. Jeannette Bill cardiopulmonary technologist Postpartum Rn Internal Medicine [place] [facility] November 11, 2017 XR HIP 3V PELV+ Observed: 11/11/2017 Status: F Source: [place] AP/LAT RT 2:56 PM [facility] REPOSITORY * * *Final Report* * * DATE OF EXAM: Nov 11 2017 2:56PM [facility] [id number] - XR HIP 3V PELV+ AP/LAT RT / PROCEDURE REASON: Pain in right hip * * * * Physician Interpretation * * * * HISTORY: Hx of 6 hip surgeries. Right hip dislocating and poping causing pain x 2 months.. Pain in right hip . TECHNIQUE: XR HIP 3V PELV+ AP/LAT RT Laterality: RIGHT Number of different views (projections): 3 COMPARISON: None RESULT: Remote deformity of the proximal femur including the femoral head neck and proximal shaft. Otherwise there is no acute fracture identified. The right hip is grossly maintained. The bony pelvis is unremarkable. The left hip is normal. IMPRESSION: Remote deformity and postsurgical changes of the right proximal femur. Right hip grossly maintained. Plastic Card Grader Cardroom: PSCB Transcribe Date/Time: Nov 12 2017 10:21P Dictated by : CAROLYN TREVINO MD This examination was interpreted and the report reviewed and electronically signed by: CAROLYN TREVINO MD on Nov 12 2017 10:23PM EST [id number] URINALYSIS WITH Collected: 11/11/2017 Status: F Source: [place] MICROSCOPIC 2:21 PM [facility] REPOSITORY TYPE CODE TESTS RESULT OUT OF RANGE REFERENCE UNITS LAB UCOL Yellow Color Yellow LAB [facility] Clear Clarity Clear LAB UGLUC Negative mg/dL Glucose, Abnormal Urine >=500 Alert LAB UBIL Negative Bilirubin, Urine Negative LAB UKET Negative Ketones, Urine Negative LAB USPG 1.005-1.030 Specific [place], Ur 1.024 LAB UHGB Negative Hemoglobin/Blood, Negative Ur LAB UPH 4.5-8.0 pH 5.0 LAB UPROT Negative mg/dL Protein, Abnormal Urine 30 Alert LAB UUROB Normal Urobilinogen Normal LAB UNITR Negative Nitrites Negative LAB ULKEST Negative Leukest Negative LAB UCOM Comments SEE COMMENT Result Comment: N/A LAB UMCOM Urine SEE Phani Comment COMMENT Result Comment: N/A LAB UWBC 0-5 /HPF WBC 0-5 LAB URBC 0-3 /HPF RBC 0-3 LAB UEPI /HPF Epithelial SEE Cells COMMENT Result Comment: Few Squamous Epithelial Cells LAB UCRYS 0 /HPF Abnormal Alert Crystals SEE COMMENT Result Comment: Few Calcium Oxalate Crystal Performed By: #### UAWMIC #### [facility] [address] [place], [place] [address] ALBUMIN/CREAT RATIO Collected: 11/11/2017 Status: F Source: [place] 2:[address] [facility] REPOSITORY TYPE CODE TESTS RESULT OUT OF REFERENCE UNITS RANGE LAB UCRR 20-300 mg/dL Creatinine,Ur 145.2 ine,Ran LAB UALBR 0.0-23.0 mg/L High Albumin Urine 103.3 Random LAB UALBCR 0-30 mg/g High Albumin/Creat 71 Ratio Result Comment: 30 to 300 mg/g indicates an increased risk for diabetic nephropathy. Greater than 300 mg/g is consistent with clinical nephropathy. (Am J Kidney Disease 1995, 25:107) Performed By: #### UACR #### [facility] [address] [place], [place] [address] CBC AND DIFFERENTIAL Collected: 11/11/2017 Status: F Source: [place] 2:[address] [facility] REPOSITORY TYPE CODE TESTS RESULT OUT OF REFERENCE UNITS RANGE LAB WBC 3.70-11.00 k/uL WBC High 11.96 LAB RBC 3.90-5.20 m/uL RBC 4.47 LAB HGB 11.5-15.5 g/dL Hemoglobin 14.2 LAB HCT 36.0-46.0 % Hematocrit 40.5 LAB MCV 80.0-100.0 fL MCV 90.6 LAB MCH 26.0-34.0 pG MCH 31.8 LAB MCHC 30.5-36.0 g/dL MCHC 35.1 LAB RDWCV 11.5-15.0 % RDW-CV 13.2 LAB PLTCT 150-400 k/uL Platelet Count 344 LAB MPV 9.0-12.7 fL MPV 9.9 LAB ANEUT % Neut% 59.3 LAB AANEUT 1.45-7.50 k/uL Abs Neut 7.08 LAB ALYMP % Lymph% 31.9 LAB AALYMP 1.00-4.00 k/uL Abs Lymph 3.82 LAB AMONO % Worth% 7.2 LAB AAMONO <0.87 k/uL Abs Worth 0.86 LAB AEOS % Eosin% 1.3 LAB AAEOS <0.46 k/uL Abs Eosin 0.16 LAB ABASO % Baso% 0.3 LAB AABASO <0.11 k/uL Abs Baso 0.04 LAB AUNRBC 0 /100 WBC NRBCs 0.0 LAB ABNRBC <0.01 k/uL Absolute nRBC <0.01 LAB DTYP DTYPE Auto Diff Performed By: #### CBCDIF, CMP, TSH #### [facility] [address] [place], [place] [address] COMP METABOLIC PANEL Collected: 11/11/2017 Status: F Source: [place] 2:20 PM [facility] REPOSITORY TYPE CODE TESTS RESULT OUT OF REFERENCE UNITS RANGE LAB TP 6.3-8.0 g/dL Protein, Total 7.2 LAB ALB 3.9-4.9 g/dL Albumin 4.2 LAB CA 8.5-10.2 mg/dL Calcium, Total 8.9 LAB TBIL 0.2-1.3 mg/dL Bilirubin, Total 1.0 LAB ALKP 32-117 U/L Alkaline Phosphatase 100 LAB AST 13-35 U/L AST 20 LAB GLU 74-99 mg/dL Glucose High 244 Result Comment: The [place] Diabetes Association (ADA) provides guidance for cutoff values for fasting glucose and random glucose. The ADA defines fasting as no caloric intake for at least 8 hours. Fas ting plasma glucose results between 100 to 125 mg/dL indicate increased risk for diabetes (prediabetes). Fasting plasma glucose results greater than or equal to 126 mg/dL meet the criteria for diagnosis of diabetes. In the absence of unequivocal hyperglycemia, results should be confirmed by repeat testing. In a patient with classic symptoms of hyperglycemia or hyperglycemic crisis, random plasma glucose results greater than or equal to 200 mg/dL meet the criteria for diagnosis of diabetes. Reference: Standards of Medical Care in Diabetes 2016, [place] Diabetes Association. Diabetes Care. 2016.39(Suppl 1). LAB BUN 7-21 mg/dL BUN 8 LAB CRET 0.58-0.96 mg/dL Creatinine Low 0.45 LAB NA 136-144 mmol/L Sodium Low 135 LAB K 3.7-5.1 mmol/L Potassium 4.1 LAB CL 97-105 mmol/L Chloride 100 LAB CO2 22-30 mmol/L CO2 Low 20 LAB AGAP 9-18 mmol/L Anion Gap 15 LAB ALT 7-38 U/L ALT 18 LAB GFRAA eGFR- Amer. >60 LAB GFRNAA . eGFR-All Other Races >60 Result Comment: eGFR (Estimated GFR) Units of measure: mL/min/1.73 meters squared eGFR is derived from the reexpressed MDRD Study equation using the following parameters: serum creatinine, age, gender and race. The creatinine assay has been calibrated to be traceable to IDMS. An eGFR <60 mL/min/1.73m2 for >3 months is consistent with chronic kidney disease. Refer to KDOQI guidelines for clinical interpretation. In patients with unstable renal function, e.g. those with acute kidney injury, the eGFR may not accurately reflect actual GFR. Performed By: #### CBCDIF, CMP, TSH #### [facility] [address] [place], [place] [address] TSH Collected: 11/11/2017 Status: F Source: [place] 2:[address] [facility] REPOSITORY TYPE CODE TESTS RESULT OUT OF RANGE REFERENCE UNITS LAB TSH 0.400-5.500 uU/mL TSH 0.896 Result Comment: If the patient is , TSH reference range varies by gestational period: First Trimester 0.100-2.500 uU/mL Second Trimester 0.200-3.000 uU/mL Third Trimester 0.300-3.000 uU/mL References: 1. De Yvon L, Makayla M, Ben EK, et al. Management of Thyroid Dysfunction during and : An Endocrine Society Clinical Practice Guideline. J Clin Endocrinol Metab, 2012:97:1494-8320. 2. [place] FONTAINE. Overview of thyroid disease in . UpToDate. 2016. Accessed on November 18, 2015. Performed By: #### CBCDIF, CMP, TSH #### [facility] [address] [place], [place] [address] LIPID PANEL, BASIC Collected: 11/11/2017 Status: F Source: [place] 2:20 PM [facility] REPOSITORY TYPE CODE TESTS RESULT OUT OF REFERENCE UNITS RANGE LAB CHOL <200 mg/dL Cholesterol 168 Result Comment: <200 mg/dL, Desirable 200-239 mg/dL, Borderline high >239 mg/dL, High LAB TRIGLY <150 mg/dL Triglyceride High 263 Result Comment: <150 mg/dL, Normal 150-199 mg/dL, Borderline high 200-499 mg/dL, High >499 mg/dL, Very high LAB HDL >39 mg/dL HDL-Cholesterol Low 34 Result Comment: 40-59 mg/dL, Acceptable >59 mg/dL, High: Negative risk factor for coronary heart disease <40 mg/dL, Low: Positive risk factor for coronary heart disease LAB LDL <100 mg/dL LDL-Cholesterol 81 Result Comment: <100 mg/dL, Optimal 100-129 mg/dL, Near optimal/above optimal 130-159 mg/dL, Borderline high 160-189 mg/dL, High >189 mg/dL, Very high Secondary prevention optimal LDL Cholesterol levels are recommended to be < 70 mg/dL LAB NONHDL <130 mg/dL Non HDL High Cholesterol 134 Result Comment: <130 mg/dL, Optimal 130-159 mg/dL, Near optimal/above optimal 160-189 mg/dL, Borderline high 190-219 mg/dL, High >219 mg/dL, Very high Secondary prevention optimal non HDL Cholesterol levels are recommended to be < 100 mg/dL LAB FT hrs Fasting Time 1 LAB VLDL <30 mg/dL High VLDL Cholesterol 53 LAB TCHDL <5.10 TC:HDL Ratio 4.94 LAB LDLHDL <2.54 LDL:HDL Ratio 2.38 Result Comment: Reference: 1. National Cholesterol Education Program ATP III Guideline At-A-Glance Quick Desk Reference: National Heart, Lung, and Blood Emerson. National Institutes of Health. 2001: NIH Publication No. 01-3305. 2. An International Atherosclerosis Society position paper: global recommendations for the management of dyslipidemia: executive summary, Atherosclerosis. 2014: 232(2):410-413. Performed By: #### LIPB, HBA1C #### [facility] [address] [place], [place] [address] HEMOGLOBIN A1C Collected: 11/11/2017 Status: F Source: [place] 2:20 PM [facility] [place] REPOSITORY TYPE CODE TESTS RESULT OUT OF REFERENCE UNITS RANGE LAB HGBA1C 4.3-5.6 % High Hemoglobin A1c 7.3 LAB HBA0 mg/dL Est. Average Glucose 163 Result Comment: eAG: (Estimated average glucose) is a calculated value from HgbA1c and is client care representative of the average blood glucose level in the last 2-3 month period. Performed By: #### LIPB, HBA1C #### [facility] [address] [place], [place] [address] PROGRESS Observed: 11/11/2017 Status: COMPLETED Source: [place] 1:[address] 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 ?This was treated with in situ pinning. ?Eventually the pin was removed for reasons which are not clear, and she apparently underwent an osteotomy of her proximal femur with fixation with a sliding hip screw. ?She has had continual pain in her right hip since then. ?Apparently her procedure was complicated by infection. This is a 27 year old female who presents today with: Patient presents with: Hip Pain: right hip pain X 3-4 weeks HISTORY OF PRESENT ILLNESS: Mirza Daigle is a 27 year old female. Patient presents with: Hip Pain: right hip pain X 3-4 weeks Pt presents today with complaint of right hip pain. Refers hurts to stand. Gets popping in the upper hip. Radiates down to the knee. Had 6 hip surgeries -- last one was in 2006 -- that was at [facility]. Refers symptoms have become more consistent for the last 3- 4 weeks. Doesn't recall any recent injuries. She has been going to the gym since the beginning of the year. Using treadmill and recumbent bike. Taking tylenol as needed. Refers will try naproxen at bedtime to help sleep, but hasn't done much. Takes this every other night. Has also done hot/cold compresses. No fevers/chills. Movement makes the pain worse. Propping in a sitting position helps the pain. Pain is affecting sleep. Refers that her sugars are running better. Fasting today - -86; after BF - 120's; after lunch - 130's. Due for labs. PAST MEDICAL HISTORY: PAST MEDICAL HISTORY Diagnosis Date - Anemia WITH 2ND - Asthma since 14 years old, inhaler PRN - Complex ovarian cyst - Needs follow up imaging 06/09/2013 06/09/2013 An ultrasound was done 06/04/2013 that revealed a 6w5d fetus with DELFINA of 01/24/14. There is fluid seen adjacent to the gestastional sac possible subchorionic hemorrhage. the left ovary is within normal limits but the right ovary contains a 3.8 x 3 x 3.3 cm moderately complex cyst. TKRN 01/15/2014 - Confirmed 9 x 7 x 2.5 cm multi-loculated cyst at the time of . Needs outpatient follow up via [facility]. - Congenital hip deformity - Diabetes, gestational insulin controlled - Family history of defects 06/09/2013 06/09/2013Patient's mother born with spina bifida. Patient's brother born with a hole in his heart. Patient has another brother that was born with Down syndrome. Patient and her brother born with a congenital hip deformity. Patient has had multiple corrective surgeries for the hip deformity.TKRN - Family history of Down syndrome 06/21/2014 Brother with DS - Family history of spina bifida 06/21/2014 Mom with Spina bifida in wheelchair - Gall stones 2007 Gall bladder removed - History of asthma 06/09/2013 06/09/2013Patient has a history of asthma. She uses an albuterol inhaler when necessary. TKRN - History of 06/09/2013 06/09/2013 Pt had 3 previous C sections. - History of kidney stones - Nausea/vomiting in 06/09/2013 06/09/2013She states she has nausea . Advised patient to call/come in if she has persistent vomiting or if her blood sugars were less than 70. TKRN - Ovarian cyst during 07/21/2014 07/21/14: see NT ultrasound: Right ovarian cyst 6cm - Pain in joint, pelvic region and thigh 01/10/2006 - Pancreatitis - Patient requested diagnostic testing 06/09/2013 06/09/2013 Patient desires early screening in with sequential testing. TKRN - depression - Prior macrosomia, antepartum 06/21/2014 - Short interval between pregnancies complicating , antepartum 06/09/2013 06/09/2013Nikki delivered her previous child August 14, 2012.TKRN - Type 2 diabetes mellitus (HCC) 05/22/2013 - Type 2 diabetes mellitus complicating , antepartum 05/28/2013 06/09/2013Nikki has a history of diabetes diagnosed 4 years ago. She was unaware that she was until she went into labor with her first . With her second she started insulin during the second trimester. She was referred to Dr. Tejada at [facility] for poorly controlled diabetes on metformin alone. She has since started insulin and has an appointment today with Dr. Guevara for followup. She has been keeping track of her blood sugars and presents with a journal today and these blood sugars are copy off and given to Dr. Guevara for his review. I have discussed with the patient the importance of good control of her blood sugars during and keeping a blood sugar log for review by the Doctor. She is reminded that she is to send her blood sugars in weekly to Dr. Guevara and she is to call sooner than a week if she has persistently high, greater the 180, or low blood sugars, less than 70. She is provided with a blood sugar log today. She has not had a diabetic foot or eye exam rece PAST SURGICAL HISTORY Procedure Laterality Date - DELIVERY ONLY , low transverse x3 - DELIVERY ONLY 01/19/15 , low transverse - IANDD ABSC; [facility] OR SGL 05/2013 cyst on left upper chest - LAPAROSCOPIC CHOLEYCYSTECTOMY Cholecystectomy, lap - PAST SURGICAL HISTORY OF tubes in ears per Dr Crockett at [facility] - PAST SURGICAL HISTORY OF Tonsils and Adenoids removed per Dr Crockett at [facility] - PAST SURGICAL HISTORY OF [address] Marroquin at [facility] - REMOVAL OF OVARY/TUBE(S) 01/19/15 Salpingo-oophorectomy, right ovarian mass ALLERGIES Aspirin; Paper Tape [Other]; Penicillins MEDICATIONS Current Outpatient Prescriptions: pantoprazole (PROTONIX) 40 mg tablet Take 1 tablet by mouth once daily. blood sugar diagnostic (FREESTYLE LITE STRIPS) test strip Use as directed 4 times daily. triamcinolone (KENALOG) 0.025 % cream Apply 1 application to affected area twice daily. metFORMIN ER (GLUCOPHAGE XR) 500 mg 24 hr tablet TAKE TWO TABLETS BY MOUTH WITH BREAKFAST AND TWO TABLETS WITH SUPPER liraglutide (VICTOZA 2-WILLIAM) 0.6 mg/0.1 mL (18 mg/3 mL) pnij Inject 1.2 mg subcutaneously once daily. insulin glargine (BASAGLAR KWIKPEN U-100 INSULIN) 100 unit/mL (3 mL) inpn Inject 40 Units subcutaneously daily at bedtime. COMPOUNDED PRESCRIPTION One Touch meter kit. Lancets (TROVE Predictive Data ScienceTOUCH ULTRASOFT LANCETS) lancets Test blood sugar(s) 5 times daily. Dx: Type 2 DM - Controlled E11.9 , Insulin: yes famotidine (PEPCID) 20 mg tablet Take 1 tablet by mouth daily at bedtime. insulin glargine (LANTUS SOLOSTAR) 100 unit/mL (3 mL) inpn Inject 36 units subcutaneously once time daily escitalopram oxalate (LEXAPRO) 20 mg tablet Take 1 tablet by mouth once daily. Alcohol Swabs padm Use as directed up to 5 times daily DM: yes Insulin: yes DX: E.11.9 Oral Medication Containers (SHARPS CONTAINER) misc 1 Can twice daily. insulin needles, DISPOSABLE, (PEN NEEDLE) 31 gauge x 5/16 ndle One daily with insulin COMPOUNDED PRESCRIPTION 1 Each as needed. Sharps Container. Dx:Diabetes mellitus, antepartum (648.03) Oral Medication Containers (BD SHARPS PRIVATE BANKER) misc 1 Container as needed (to disopse of insulin needles). Lancets (ONE TOUCH SURESOFT LANCING DEV) lancets Use as instructed No current facility-administered medications for this visit. FAMILY HISTORY Problem Relation Age of Onset - Diabetes Mother - Hypertension Mother - spina bifida [OTHER] Mother - Heart Father - Hypertension Father - Cancer Maternal Grandmother - Alcohol/Drug Maternal Grandmother - Heart Paternal Grandmother - Aneurysm Paternal Grandmother - Stroke Brother - Down Syndrome [OTHER] Brother - autism [OTHER] Brother step brother - seizures and cerebral palsy also - Open family hx of Neural Tube Defect [OTHER] Brother Social History Marital status: Single Spouse name: Years of education: 10 Number of children: 2 Occupational History Occupation Employer Comment [employer]OMEMAK[employer] Social History Main Topics Smoking status: Never Smoker Smokeless tobacco: Never Used Comment: mom's marquise smokes outside Alcohol use: No Drug use: No Sexual activity: Yes Partners with: Male EXAM: BP 118/60 (BP Site: Left Arm, BP Position: Sitting, BP Cuff Size: Large Adult) Pulse 82 Resp 14 Wt 131.5 kg (290 lb) BMI 45.42 kg/m? PHYSICAL EXAM: General Appearance: Well appearing, alert, in no acute distress, well-hydrated, well nourished.. Skin: Skin color, texture, turgor normal, no suspicious rashes or lesions. Head: Normocephalic, no masses, lesions, tenderness or abnormalities. Eyes: Anicteric sclera. Pupils are equally round and reactive to light. Extraocular movements are intact. . Neck: Supple, no adenopathy; thyroid symmetric, feels large/thick. no bruits. Lungs: Lungs clear to auscultation. No wheezing, rhonchi, rales. Heart: RRR without murmur, gallop, or rubs. No ectopy. Extremities: No deformities, edema, skin discoloration, clubbing or cyanosis. Good capillary refill. Pain with palpation of the lateral- posterior upper hip. Neurologic: Gait normal. ASSESSMENT/PLAN: 1. Pain of right hip joint - ICD9: 719.45, ICD10: M25.551 (primary diagnosis) - CONSULT TO ORTHOPAEDICS - CONSULT TO PHYSICAL THERAPY - MELOXICAM 15 MG TABLET - COMP METABOLIC PANEL - CBC + DIFF - XR HIP GENERAL 3V PELV/AP/LAT RT 2. Type 2 diabetes mellitus without complication, without long-term current use of insulin (HCC) - ICD9: 250.00, ICD10: E11.9 uncontrolled - Continue current medications - COMP METABOLIC PANEL - CBC + DIFF - TSH BLD 3. Neck swelling - ICD9: 784.2, ICD10: R22.1 Get TSH and u/s to eval - US THYROID/PARATHYROID Discussed treatment plan and patient voices understanding. Patient's questions answered appropriately. Medications and potential side effects were discussed and patient voices understanding. Return to the office as scheduled or as needed for worsening/no improvement. Tara Roman APRN.EDUCATIONAL TECHNOLOGY SPECIALIST CNOV Observed: 11/11/2017 Status: COMPLETED Source: [place] 1:[address] 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 ?This was treated with in situ pinning. ?Eventually the pin was removed for reasons which are not clear, and she apparently underwent an osteotomy of her proximal femur with fixation with a sliding hip screw. ?She has had continual pain in her right hip since then. ?Apparently her procedure was complicated by infection. This is a 27 year old female who presents today with: Patient presents with: Hip Pain: right hip pain X 3-4 weeks HISTORY OF PRESENT ILLNESS: Elodiaoziel Doss Pilo is a 27 year old female. Patient presents with: Hip Pain: right hip pain X 3-4 weeks Pt presents today with complaint of right hip pain. Refers hurts to stand. Gets popping in the upper hip. Radiates down to the knee. Had 6 hip surgeries -- last one was in 2006 -- that was at [facility]. Refers symptoms have become more consistent for the last 3- 4 weeks. Doesn't recall any recent injuries. She has been going to the gym since the beginning of the year. Using treadmill and recumbent bike. Taking tylenol as needed. Refers will try naproxen at bedtime to help sleep, but hasn't done much. Takes this every other night. Has also done hot/cold compresses. No fevers/chills. Movement makes the pain worse. Propping in a sitting position helps the pain. Pain is affecting sleep. Refers that her sugars are running better. Fasting today - -86; after BF - 120's; after lunch - 130's. Due for labs. PAST MEDICAL HISTORY: PAST MEDICAL HISTORY Diagnosis Date - Anemia WITH 2ND - Asthma since 14 years old, inhaler PRN - Complex ovarian cyst - Needs follow up imaging 06/09/2013 06/09/2013 An ultrasound was done 06/04/2013 that revealed a 6w5d fetus with DELFINA of 01/24/14. There is fluid seen adjacent to the gestastional sac possible subchorionic hemorrhage. the left ovary is within normal limits but the right ovary contains a 3.8 x 3 x 3.3 cm moderately complex cyst. TKRN 01/15/2014 - Confirmed 9 x 7 x 2.5 cm multi-loculated cyst at the time of . Needs outpatient follow up via [facility]. - Congenital hip deformity - Diabetes, gestational insulin controlled - Family history of defects 06/09/2013 06/09/2013Patient's mother born with spina bifida. Patient's brother born with a hole in his heart. Patient has another brother that was born with Down syndrome. Patient and her brother born with a congenital hip deformity. Patient has had multiple corrective surgeries for the hip deformity.TKRN - Family history of Down syndrome 06/21/2014 Brother with DS - Family history of spina bifida 06/21/2014 Mom with Spina bifida in wheelchair - Gall stones 2007 Gall bladder removed - History of asthma 06/09/2013 06/09/2013Patient has a history of asthma. She uses an albuterol inhaler when necessary. TKRN - History of 06/09/2013 06/09/2013 Pt had 3 previous C sections. - History of kidney stones - Nausea/vomiting in 06/09/2013 06/09/2013She states she has nausea . Advised patient to call/come in if she has persistent vomiting or if her blood sugars were less than 70. TKRN - Ovarian cyst during 07/21/2014 07/21/14: see NT ultrasound: Right ovarian cyst 6cm - Pain in joint, pelvic region and thigh 01/10/2006 - Pancreatitis - Patient requested diagnostic testing 06/09/2013 06/09/2013 Patient desires early screening in with sequential testing. TKRN - depression - Prior macrosomia, antepartum 06/21/2014 - Short interval between pregnancies complicating , antepartum 06/09/2013 06/09/2013Nikki delivered her previous child August 14, 2012.TKRN - Type 2 diabetes mellitus (HCC) 05/22/2013 - Type 2 diabetes mellitus complicating , antepartum 05/28/2013 06/09/2013Nikki has a history of diabetes diagnosed 4 years ago. She was unaware that she was until she went into labor with her first . With her second she started insulin during the second trimester. She was referred to Dr. Tejada at [facility] for poorly controlled diabetes on metformin alone. She has since started insulin and has an appointment today with Dr. Guevara for followup. She has been keeping track of her blood sugars and presents with a journal today and these blood sugars are copy off and given to Dr. Guevara for his review. I have discussed with the patient the importance of good control of her blood sugars during and keeping a blood sugar log for review by the Doctor. She is reminded that she is to send her blood sugars in weekly to Dr. Guevara and she is to call sooner than a week if she has persistently high, greater the 180, or low blood sugars, less than 70. She is provided with a blood sugar log today. She has not had a diabetic foot or eye exam rece PAST SURGICAL HISTORY Procedure Laterality Date - DELIVERY ONLY , low transverse x3 - DELIVERY ONLY 01/19/15 , low transverse - IANDD ABSC; [facility] OR SGL 05/2013 cyst on left upper chest - LAPAROSCOPIC CHOLEYCYSTECTOMY Cholecystectomy, lap - PAST SURGICAL HISTORY OF tubes in ears per Dr Crockett at [facility] - PAST SURGICAL HISTORY OF Tonsils and Adenoids removed per Dr Crockett at [facility] - PAST SURGICAL HISTORY OF [address] Marroquin at [facility] - REMOVAL OF OVARY/TUBE(S) 01/19/15 Salpingo-oophorectomy, right ovarian mass ALLERGIES Aspirin; Paper Tape [Other]; Penicillins MEDICATIONS Current Outpatient Prescriptions: pantoprazole (PROTONIX) 40 mg tablet Take 1 tablet by mouth once daily. blood sugar diagnostic (FREESTYLE LITE STRIPS) test strip Use as directed 4 times daily. triamcinolone (KENALOG) 0.025 % cream Apply 1 application to affected area twice daily. metFORMIN ER (GLUCOPHAGE XR) 500 mg 24 hr tablet TAKE TWO TABLETS BY MOUTH WITH BREAKFAST AND TWO TABLETS WITH SUPPER liraglutide (VICTOZA 2-WILLIAM) 0.6 mg/0.1 mL (18 mg/3 mL) pnij Inject 1.2 mg subcutaneously once daily. insulin glargine (BASAGLAR KWIKPEN U-100 INSULIN) 100 unit/mL (3 mL) inpn Inject 40 Units subcutaneously daily at bedtime. COMPOUNDED PRESCRIPTION One Touch meter kit. Lancets (TROVE Predictive Data ScienceTOUCH ULTRASOFT LANCETS) lancets Test blood sugar(s) 5 times daily. Dx: Type 2 DM - Controlled E11.9 , Insulin: yes famotidine (PEPCID) 20 mg tablet Take 1 tablet by mouth daily at bedtime. insulin glargine (LANTUS SOLOSTAR) 100 unit/mL (3 mL) inpn Inject 36 units subcutaneously once time daily escitalopram oxalate (LEXAPRO) 20 mg tablet Take 1 tablet by mouth once daily. Alcohol Swabs padm Use as directed up to 5 times daily DM: yes Insulin: yes DX: E.11.9 Oral Medication Containers (SHARPS CONTAINER) misc 1 Can twice daily. insulin needles, DISPOSABLE, (PEN NEEDLE) 31 gauge x 5/16 ndle One daily with insulin COMPOUNDED PRESCRIPTION 1 Each as needed. Sharps Container. Dx:Diabetes mellitus, antepartum (648.03) Oral Medication Containers (BD SHARPS PRIVATE BANKER) misc 1 Container as needed (to disopse of insulin needles). Lancets (ONE TOUCH SURESOFT LANCING DEV) lancets Use as instructed No current facility-administered medications for this visit. FAMILY HISTORY Problem Relation Age of Onset - Diabetes Mother - Hypertension Mother - spina bifida [OTHER] Mother - Heart Father - Hypertension Father - Cancer Maternal Grandmother - Alcohol/Drug Maternal Grandmother - Heart Paternal Grandmother - Aneurysm Paternal Grandmother - Stroke Brother - Down Syndrome [OTHER] Brother - autism [OTHER] Brother step brother - seizures and cerebral palsy also - Open family hx of Neural Tube Defect [OTHER] Brother Social History Marital status: Single Spouse name: Years of education: 10 Number of children: 2 Occupational History Occupation Employer Comment [employer]OMEMAK[employer] Social History Main Topics Smoking status: Never Smoker Smokeless tobacco: Never Used Comment: mom's fijosé luis smokes outside Alcohol use: No Drug use: No Sexual activity: Yes Partners with: Male EXAM: BP 118/60 (BP Site: Left Arm, BP Position: Sitting, BP Cuff Size: Large Adult) Pulse 82 Resp 14 Wt 131.5 kg (290 lb) BMI 45.42 kg/m? PHYSICAL EXAM: General Appearance: Well appearing, alert, in no acute distress, well-hydrated, well nourished.. Skin: Skin color, texture, turgor normal, no suspicious rashes or lesions. Head: Normocephalic, no masses, lesions, tenderness or abnormalities. Eyes: Anicteric sclera. Pupils are equally round and reactive to light. Extraocular movements are intact. . Neck: Supple, no adenopathy; thyroid symmetric, feels large/thick. no bruits. Lungs: Lungs clear to auscultation. No wheezing, rhonchi, rales. Heart: RRR without murmur, gallop, or rubs. No ectopy. Extremities: No deformities, edema, skin discoloration, clubbing or cyanosis. Good capillary refill. Pain with palpation of the lateral- posterior upper hip. Neurologic: Gait normal. ASSESSMENT/PLAN: 1. Pain of right hip joint - ICD9: 719.45, ICD10: M25.551 (primary diagnosis) - CONSULT TO ORTHOPAEDICS - CONSULT TO PHYSICAL THERAPY - MELOXICAM 15 MG TABLET - COMP METABOLIC PANEL - CBC + DIFF - XR HIP GENERAL 3V PELV/AP/LAT RT 2. Type 2 diabetes mellitus without complication, without long-term current use of insulin (HCC) - ICD9: 250.00, ICD10: E11.9 uncontrolled - Continue current medications - COMP METABOLIC PANEL - CBC + DIFF - TSH BLD 3. Neck swelling - ICD9: 784.2, ICD10: R22.1 Get TSH and u/s to eval - US THYROID/PARATHYROID Discussed treatment plan and patient voices understanding. Patient's questions answered appropriately. Medications and potential side effects were discussed and patient voices understanding. Return to the office as scheduled or as needed for worsening/no improvement. Tara Roman APRN.LAI Roman APRN.LAI 11/11/2017 1:39 PM Addendum 1. Start meloxicam daily with food X 10 days, then daily as needed after that. Do not take additional naproxen/ibuprofen with this. You can still use tylenol. 2. Xray of the hip. 3. PT referral. 4. Ortho referral. 5. u/s of the neck. Referring Provider: SELF [200] Allergies As of Date: 11/11/2017 Noted Allergy Reaction ASPIRIN 09/18/2005 4 - Hives 8 - GI Upset paper tape [Other] 06/26/2005 2 - Rash 7 - Swelling 9 - Itching Comments: Area gets very red also PENICILLINS 05/11/2013 4 - Hives Date Reviewed: 11/11/2017 Reviewed by: Kaylin Molina Graphic Manager - Fully Assessed Reason for Visit: Hip Pain [136] Cmt: right hip pain X 3-4 weeks Primary Visit Diagnosis:Pain of right hip joint [M25.551] Other Visit Diagnoses:Type 2 diabetes mellitus without complication, without long-term current use of insulin (HCC) [E11.9] Neck swelling [R22.1] Order(s):CONSULT TO ORTHOPAEDICS [9026] Order #: [id number]: 1 CONSULT TO PHYSICAL THERAPY [9032] Order #: [id number]: 1 meloxicam (MOBIC) 15 mg tabletTake 1 tablet by mouth once daily. X 10 days, then daily as needed with food.Disp: 30 tabletRfl: 1 COMP METABOLIC PANEL [SQCMP] Order #: [id number] FUTURE CBC + DIFF [SQCBCDIF] Order #: [id number] FUTURE TSH BLD [SQTSH] Order #: [id number] FUTURE US THYROID/PARATHYROID [2021745] Order #: [id number] FUTURE XR HIP GENERAL 3V PELV/AP/LAT RT [1830785] Order #: [id number] FUTURE Prescriptions as of 11/11/2017 Sig: PANTOPRAZOLE 40 MG TABLET,DEL* Take 1 tablet by mouth once d* BLOOD SUGAR DIAGNOSTIC STRIPS Use as directed 4 times daily. TRIAMCINOLONE ACETONIDE 0.025* Apply 1 application to affect* METFORMIN ER 500 MG TABLET,EX* TAKE TWO TABLETS BY MOUTH WIT* LIRAGLUTIDE 0.6 MG/0.1 ML (18* Inject 1.2 mg subcutaneously * INSULIN GLARGINE (U-100) 100 * Inject 40 Units subcutaneousl* COMPOUNDED PRESCRIPTION One Touch meter kit. LANCETS Test blood sugar(s) 5 times * FAMOTIDINE 20 MG TABLET Take 1 tablet by mouth daily * ESCITALOPRAM 20 MG TABLET Take 1 tablet by mouth once d* ALCOHOL SWABS Use as directed up to 5 times* EMPTY CONTAINER 1 Can twice daily. PEN NEEDLE, DIABETIC 31 GAUGE* One daily with insulin COMPOUNDED PRESCRIPTION 1 Each as needed. Sharps Cont* EMPTY CONTAINER 1 Container as needed (to dis* LANCETS Use as instructed MELOXICAM 15 MG TABLET Take 1 tablet by mouth once d* Problem List As Of Date 11/11/2017 Noted Resolved Type 2 diabetes mellitus (HCC) [E11.9] INVALID FOR* More... More... More... Obesity, unspecified [E66.9] INVALID FOR* More... History of flank pain [Z87.898] INVALID FOR*06/21/2014 More... More... More... History of depression [Z86.59] INVALID FOR* More... More... More... More... More... More... More... Depression [F32.9] INVALID FOR* Other instructions from your clinician: 1. Start meloxicam daily with food X 10 days, then daily as needed after that. Do not take additional naproxen/ibuprofen with this. You can still use tylenol. 2. Xray of the hip. 3. PT referral. 4. Ortho referral. 5. u/s of the neck. Prescriptions ordered this encounter Disp Refills Start End MELOXICAM 15 MG TABLET 30 t* 1 11/11/2017 Route: ORAL Sig: Take 1 tablet by mouth once daily. X 10 days, then daily as needed with food. Medications Discontinued During This Encounter insulin glargine (LANTUS SOLOSTAR) 1* 5 Pen 11 08/20/2016 11/11/2017 Cmt: Updated dose Sig: Inject 36 units subcutaneously once time daily Disc: Other Disposition: Return if symptoms worsen or fail to improve. LOS history recorded Follow-up and Disposition History Recorded Encounter Status:Closed by TARA ROMAN CNP on 11/11/17 JUNAID Observed: 11/11/2017 Status: COMPLETED Source: [place] 12:[address] [facility] REPOSITORY Patient Outreach (INTMWS) PILOMIRZA Selam ([id number]) 1990 F Date Time Provider Department 11/11/17 JEANNETTE BUSBY During your visit today, we recorded the following information about you: Jeannette Olmstead RN 11/11/2017 3:04 PM Signed PRIMARY CARE COORDINATION IN OFFICE VISIT WITH PCP Patient has been identified by name and date of . PCP Assessment/Plan: Reviewed PCP plan with patient using [employer] Pt has not done A1c since Feb. Will get labs, XRs, Ortho consult and PT consult. PCC Plan of Care: Patient concerns: R hip pops and hurts. Used to occur occasionally. Now it is constant. Difficulty walking, sleeping due to pain. Patient goals: To regain R hip function w/o pain. PCC Interventions: Discussed weight management to help hip. She weighs 290#. States all BSs running about 130 regardless of when she is remembering her numbers. Will await A1c. She complains of pain when she goes to [employer]. Enc her to try PT, do water exercises at the pool. She has PT appt and appt w/Dr Recio scheduled. Next Office Visit: Visit date not found Plan For Next Call: Will call with results of XRs and labs once reviewed by PHILOSOPHY INSTRUCTOR. Jeannette Bill cardiopulmonary technologist Postpartum Rn Internal Medicine [facility] November 11, 2017 Allergies As of Date: 11/11/2017 Noted Allergy Reaction ASPIRIN 09/18/2005 4 - Hives 8 - GI Upset paper tape [Other] 06/26/2005 2 - Rash 7 - Swelling 9 - Itching Comments: Area gets very red also PENICILLINS 05/11/2013 4 - Hives Date Reviewed: 11/11/2017 Reviewed by: Kaylin Molina Graphic Manager - Fully Assessed Reason for Visit: Postpartum Rn Chronic Care [6147] Prescriptions as of 11/11/2017 Sig: MELOXICAM 15 MG TABLET Take 1 tablet by mouth once d* PANTOPRAZOLE 40 MG TABLET,DEL* Take 1 tablet by mouth once d* BLOOD SUGAR DIAGNOSTIC STRIPS Use as directed 4 times daily. TRIAMCINOLONE ACETONIDE 0.025* Apply 1 application to affect* METFORMIN ER 500 MG TABLET,EX* TAKE TWO TABLETS BY MOUTH WIT* LIRAGLUTIDE 0.6 MG/0.1 ML (18* Inject 1.2 mg subcutaneously * INSULIN GLARGINE (U-100) 100 * Inject 40 Units subcutaneousl* COMPOUNDED PRESCRIPTION One Touch meter kit. LANCETS Test blood sugar(s) 5 times * FAMOTIDINE 20 MG TABLET Take 1 tablet by mouth daily * ESCITALOPRAM 20 MG TABLET Take 1 tablet by mouth once d* ALCOHOL SWABS Use as directed up to 5 times* EMPTY CONTAINER 1 Can twice daily. PEN NEEDLE, DIABETIC 31 GAUGE* One daily with insulin COMPOUNDED PRESCRIPTION 1 Each as needed. Sharps Cont* EMPTY CONTAINER 1 Container as needed (to dis* LANCETS Use as instructed Problem List As Of Date 11/11/2017 Noted Resolved Type 2 diabetes mellitus (HCC) [E11.9] INVALID FOR* More... More... More... Obesity, unspecified [E66.9] INVALID FOR* More... History of flank pain [Z87.898] INVALID FOR*06/21/2014 More... More... More... History of depression [Z86.59] INVALID FOR* More... More... More... More... More... More... More... Depression [F32.9] INVALID FOR* Encounter Status:Closed by JEANNETTE BILL on 11/11/17 PROGRESS Observed: 11/08/2017 Status: COMPLETED Source: [place] 3:26 PM [facility] [place] REPOSITORY O ID: [id number] Author: Jeannette Bill Service: (none) Author Type: Registered Nurse Type: Progress Notes Filed: 11/08/2017 4:03 PM Note Text: PRIMARY CARE COORDINATION FOLLOW-UP NOTE Provider Action/FYI: Pt coming to see you Saturday. I did some investigating for you with past XRs and notes. Sent note to Dr Recio's PA to see if this is someone he can help or if needs to go to [facility]. Has had intermittent pain over yrs but now chronic. Patient identified by name and date of . YES Spoke to patient Summary: Pt called complaining of R hip pain. 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 ?This was treated with in situ pinning. ?Eventually the pin was removed for reasons which are not clear, and she apparently underwent an osteotomy of her proximal femur with fixation with a sliding hip screw. ?She has had continual pain in her right hip since then. ?Apparently her procedure was complicated by infection. XR at the time shows: Changes on the right are suggestive for prior avascular necrosis with remodeling and healing. There has been a fracture of the right proximal femoral diaphysis, and abnormal position of the sideplate and dynamic screw. If acute fracture is suspected at the site of hardware, dedicated frontal and lateral femur views are recommended. ? Concerns: Pt is diabetic and has not followed up with labs or visits. She is obese at nearly 300# and I have discussed the importance of weight management for hip pain and diabetic control before she would be a candidate for surgery. She states she has been working on it. She has a younger brother who has already had 2 hip replacements. Explained to pt she needs appt for eval and XRs of the hip and she can then be sched with Ortho once it is determined who would best serve her. I have sent a note to Dr Almita Arias's PA about case seeking advice. She will alternate Tylenol with Ibuprofen for pain. She has mainly been using hot/cold packs which have been ineffective. Leather Production Artisan plan for next outreach: Will follow up at Saturday appt 1pm with Ms. Roman. Josie Bill RN Ambulatory Postpartum Rn Internal Medicine [place] [facility] November 08, 2017 LAITOUTRJACQUELINE Observed: 11/08/2017 Status: COMPLETED Source: [place] 12:[address] [facility] REPOSITORY Patient Outreach (INTMWS) MIRZA DAIGLE ([id number]) 1990 F Date Time Provider Department 11/08/17 JEANNETTE BUSBY During your visit today, we recorded the following information about you: Jeannette Olmstead RN 11/08/2017 4:03 PM Signed PRIMARY CARE COORDINATION FOLLOW-UP NOTE Provider Action/FYI: Pt coming to see you Saturday. I did some investigating for you with past XRs and notes. Sent note to Dr Recio's PA to see if this is someone he can help or if needs to go to [facility]. Has had intermittent pain over yrs but now chronic. Patient identified by name and date of . YES Spoke to patient Summary: Pt called complaining of R hip pain. 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 ?This was treated with in situ pinning. ?Eventually the pin was removed for reasons which are not clear, and she apparently underwent an osteotomy of her proximal femur with fixation with a sliding hip screw. ?She has had continual pain in her right hip since then. ?Apparently her procedure was complicated by infection. XR at the time shows: Changes on the right are suggestive for prior avascular necrosis with remodeling and healing. There has been a fracture of the right proximal femoral diaphysis, and abnormal position of the sideplate and dynamic screw. If acute fracture is suspected at the site of hardware, dedicated frontal and lateral femur views are recommended. ? Concerns: Pt is diabetic and has not followed up with labs or visits. She is obese at nearly 300# and I have discussed the importance of weight management for hip pain and diabetic control before she would be a candidate for surgery. She states she has been working on it. She has a younger brother who has already had 2 hip replacements. Explained to pt she needs appt for eval and XRs of the hip and she can then be sched with Ortho once it is determined who would best serve her. I have sent a note to Dr Almita Arias's PA about case seeking advice. She will alternate Tylenol with Ibuprofen for pain. She has mainly been using hot/cold packs which have been ineffective. Leather Production Artisan plan for next outreach: Will follow up at Saturday appt 1pm with Ms. Roman. Signature Jeannette Bill RN Ambulatory Postpartum Rn Internal Medicine [place] [facility] November 08, 2017 Allergies As of Date: 11/08/2017 Noted Allergy Reaction ASPIRIN 09/18/2005 4 - Hives 8 - GI Upset paper tape [Other] 06/26/2005 2 - Rash 7 - Swelling 9 - Itching Comments: Area gets very red also PENICILLINS 05/11/2013 4 - Hives Date Reviewed: 10/13/2017 Reviewed by: Delia ([facility]) Fernanda - Fully Assessed Reason for Visit: Postpartum Rn Chronic Care [5189] Prescriptions as of 11/08/2017 Sig: PANTOPRAZOLE 40 MG TABLET,DEL* Take 1 tablet by mouth once d* BLOOD SUGAR DIAGNOSTIC STRIPS Use as directed 4 times daily. TRIAMCINOLONE ACETONIDE 0.025* Apply 1 application to affect* METFORMIN ER 500 MG TABLET,EX* TAKE TWO TABLETS BY MOUTH WIT* LIRAGLUTIDE 0.6 MG/0.1 ML (18* Inject 1.2 mg subcutaneously * INSULIN GLARGINE (U-100) 100 * Inject 40 Units subcutaneousl* COMPOUNDED PRESCRIPTION One Touch meter kit. LANCETS Test blood sugar(s) 5 times * FAMOTIDINE 20 MG TABLET Take 1 tablet by mouth daily * INSULIN GLARGINE (U-100) 100 * Inject 36 units subcutaneousl* ESCITALOPRAM 20 MG TABLET Take 1 tablet by mouth once d* ALCOHOL SWABS Use as directed up to 5 times* EMPTY CONTAINER 1 Can twice daily. PEN NEEDLE, DIABETIC 31 GAUGE* One daily with insulin COMPOUNDED PRESCRIPTION 1 Each as needed. Sharps Cont* EMPTY CONTAINER 1 Container as needed (to dis* LANCETS Use as instructed Problem List As Of Date 11/08/2017 Noted Resolved Type 2 diabetes mellitus (HCC) [E11.9] INVALID FOR* More... More... More... Obesity, unspecified [E66.9] INVALID FOR* More... History of flank pain [Z87.898] INVALID FOR*06/21/2014 More... More... More... History of depression [Z86.59] INVALID FOR* More... More... More... More... More... More... More... Depression [F32.9] INVALID FOR* Encounter Status:Closed by JEANNETTE BILL on 11/08/17 PROGRESS Observed: 10/13/2017 Status: COMPLETED Source: [place] 10:[address] [facility] REPOSITORY HNO ID: [id number] Author: Delia Michael (Career Development Coordinator) Service: (none) Author Type: Nurse Practitioner Type: Progress Notes Filed: 10/13/2017 10:39 AM Note Text: Subjective HPI Mirza Zimmerman is a 27 year old female who presents with a rash on her left hand, she was weeding and noticed the rash on her fingers the next day. It is itching and burning. She has blisters on fingers 1-4 of the hand and a few blisters on the bridge of her nose. She has used calamine lotion for it. She is getting in 2 weeks and is afraid it will not be gone by then. Review of Systems Constitutional: Negative. Negative for fever. Musculoskeletal: Negative. Skin: Positive for itching and rash. BP 116/62 (BP Site: Left Arm, BP Position: Sitting, BP Cuff Size: Large Adult) Pulse 98 Temp 36.9 ?C (98.4 ?F) (Right Tympanic) Resp 16 Wt 132.5 kg (292 lb) SpO2 98% BMI 45.73 kg/m? PAST MEDICAL HISTORY Diagnosis Date - Anemia WITH 2ND - Asthma since 14 years old, inhaler PRN - Complex ovarian cyst - Needs follow up imaging 06/09/2013 06/09/2013 An ultrasound was done 06/04/2013 that revealed a 6w5d fetus with DELFINA of 01/24/14. There is fluid seen adjacent to the gestastional sac possible subchorionic hemorrhage. the left ovary is within normal limits but the right ovary contains a 3.8 x 3 x 3.3 cm moderately complex cyst. TKRN 01/15/2014 - Confirmed 9 x 7 x 2.5 cm multi-loculated cyst at the time of . Needs outpatient follow up via TVUS. - Congenital hip deformity - Diabetes, gestational insulin controlled - Family history of defects 06/09/2013 06/09/2013Patient's mother born with spina bifida. Patient's brother born with a hole in his heart. Patient has another brother that was born with Down syndrome. Patient and her brother born with a congenital hip deformity. Patient has had multiple corrective surgeries for the hip deformity.TKRN - Family history of Down syndrome 06/21/2014 Brother with DS - Family history of spina bifida 06/21/2014 Mom with Spina bifida in wheelchair - Gall stones 2007 Gall bladder removed - History of asthma 06/09/2013 06/09/2013Patient has a history of asthma. She uses an albuterol inhaler when necessary. TKRN - History of 06/09/2013 06/09/2013 Pt had 3 previous C sections. - History of kidney stones - Nausea/vomiting in 06/09/2013 06/09/2013She states she has nausea . Advised patient to call/come in if she has persistent vomiting or if her blood sugars were less than 70. TKRN - Ovarian cyst during 07/21/2014 07/21/14: see NT ultrasound: Right ovarian cyst 6cm - Pain in joint, pelvic region and thigh 01/10/2006 - Pancreatitis - Patient requested diagnostic testing 06/09/2013 06/09/2013 Patient desires early screening in with sequential testing. TKRN - depression - Prior macrosomia, antepartum 06/21/2014 - Short interval between pregnancies complicating , antepartum 06/09/2013 06/09/2013Nikki delivered her previous child August 14, 2012.TKRN - Type 2 diabetes mellitus (HCC) 05/22/2013 - Type 2 diabetes mellitus complicating , antepartum 05/28/2013 06/09/2013Nikki has a history of diabetes diagnosed 4 years ago. She was unaware that she was until she went into labor with her first . With her second she started insulin during the second trimester. She was referred to Dr. Tejada at [facility] for poorly controlled diabetes on metformin alone. She has since started insulin and has an appointment today with Dr. Guevara for followup. She has been keeping track of her blood sugars and presents with a journal today and these blood sugars are copy off and given to Dr. Guevara for his review. I have discussed with the patient the importance of good control of her blood sugars during and keeping a blood sugar log for review by the Doctor. She is reminded that she is to send her blood sugars in weekly to Dr. Guevara and she is to call sooner than a week if she has persistently high, greater the 180, or low blood sugars, less than 70. She is provided with a blood sugar log today. She has not had a diabetic foot or eye exam rece PAST SURGICAL HISTORY Procedure Laterality Date - DELIVERY ONLY , low transverse x3 - DELIVERY ONLY 01/19/15 , low transverse - IANDD ABSC; SMPL OR SGL 05/2013 cyst on left upper chest - LAPAROSCOPIC CHOLEYCYSTECTOMY Cholecystectomy, lap - PAST SURGICAL HISTORY OF tubes in ears per Dr Crockett at [facility] - PAST SURGICAL HISTORY OF Tonsils and Adenoids removed per Dr Crocktet at [facility] - PAST SURGICAL HISTORY OF [address] Marroquin at [facility] - REMOVAL OF OVARY/TUBE(S) 01/19/15 Salpingo-oophorectomy, right ovarian mass ALLERGIES Aspirin; Paper Tape [Other]; Penicillins MEDICATIONS metFORMIN ER (GLUCOPHAGE XR) 500 mg 24 hr tablet TAKE TWO TABLETS BY MOUTH WITH BREAKFAST AND TWO TABLETS WITH SUPPER liraglutide (VICTOZA 2-WILLIAM) 0.6 mg/0.1 mL (18 mg/3 mL) pnij Inject 1.2 mg subcutaneously once daily. insulin glargine (BASAGLAR KWIKPEN U-100 INSULIN) 100 unit/mL (3 mL) inpn Inject 40 Units subcutaneously daily at bedtime. COMPOUNDED PRESCRIPTION One Touch meter kit. blood sugar diagnostic (ONETOUCH ULTRA TEST) test strip Test blood sugar(s) 5 times daily. Dx: Type 2 DM - Controlled E11.9 Insulin: yes Lancets (ONETOUCH ULTRASOFT LANCETS) lancets Test blood sugar(s) 5 times daily. Dx: Type 2 DM - Controlled E11.9 , Insulin: yes pantoprazole DR (PROTONIX) 40 mg tablet Take 1 tablet by mouth once daily. famotidine (PEPCID) 20 mg tablet Take 1 tablet by mouth daily at bedtime. escitalopram oxalate (LEXAPRO) 20 mg tablet Take 1 tablet by mouth once daily. blood sugar diagnostic (FREESTYLE LITE STRIPS) test strip Use as directed 4 times daily. Alcohol Swabs padm Use as directed up to 5 times daily DM: yes Insulin: yes DX: E.11.9 Oral Medication Containers (SHARPS CONTAINER) misc 1 Can twice daily. insulin needles, DISPOSABLE, (PEN NEEDLE) 31 gauge x 5/16 ndle One daily with insulin COMPOUNDED PRESCRIPTION 1 Each as needed. Sharps Container. Dx:Diabetes mellitus, antepartum (648.03) Oral Medication Containers (BD SHARPS PRIVATE BANKER) misc 1 Container as needed (to disopse of insulin needles). Lancets (ONE TOUCH SURESOFT LANCING DEV) lancets Use as instructed norgestimate 0.25 mg-ethinyl estradiol 35 mcg (SPRINTEC) 0.25- 35 mg-mcg per tablet Take 1 tablet by mouth once daily. insulin glargine (LANTUS SOLOSTAR) 100 unit/mL (3 mL) inpn Inject 36 units subcutaneously once time daily FAMILY HISTORY Problem Relation Age of Onset - Diabetes Mother - Hypertension Mother - spina bifida [OTHER] Mother - Heart Father - Hypertension Father - Cancer Maternal Grandmother - Alcohol/Drug Maternal Grandmother - Heart Paternal Grandmother - Aneurysm Paternal Grandmother - Stroke Brother - Down Syndrome [OTHER] Brother - autism [OTHER] Brother step brother - seizures and cerebral palsy also - Open family hx of Neural Tube Defect [OTHER] Brother Social History Substance Use Topics - Smoking status: Never Smoker - Smokeless tobacco: Never Used Comment: mom's fiance smokes outside - Alcohol use No Objective Physical Exam Constitutional: She is well-developed, well-nourished, and in no distress. HENT: Nose: Musculoskeletal: Hands: Neurological: She is alert. Skin: Skin is warm and dry. Rash noted. There is erythema. Nursing note and vitals reviewed. ASSESSMENT/PLAN: 1. Allergic contact dermatitis, unspecified trigger - ICD9: 692.9, ICD10: L23.9 - Oral Steriod tx -Medrol dose pack - Topical steriod tx with Rx for steriod cream/ointment- see orders - Anti itch therapy of Calomine lotion recommended prn - discussed skin care of rash - follow up if symptoms persist or worsen. - TRIAMCINOLONE ACETONIDE 0.025 % TOPICAL CREAM - METHYLPREDNISOLONE 4 MG TABLETS IN A DOSE PACK - Follow-up with your PCP in 3-5 days if symptoms have not improved or sooner if symptoms worsen - Discussed red flags and need for immediate medical evaluation if any occur. - Discussed supportive care treatment with fluids, rest and analgesia. - Discussed expected course of illness Delia Michael APRN.EDUCATIONAL TECHNOLOGY SPECIALIST CNOV Observed: 10/13/2017 Status: COMPLETED Source: [place] 10:[address] [facility] REPOSITORY Office Visit (WSTR) MIRZA ZIMMERMAN ([id number]) 1990 F Date Time Provider Department 10/13/17 10:15 AM DELIA MICHAEL ([facility]) [facility] During your visit today, we recorded the following information about you: Temperature Pulse Respiration Blood pressure 98.4 degrees 98/minute 16/minute 116/62 Weight 132.5 kg Delia Michael (Career Development Coordinator) 10/13/2017 10:39 AM Signed Subjective HPI Mirza Doss Elsie is a 27 year old female who presents with a rash on her left hand, she was weeding and noticed the rash on her fingers the next day. It is itching and burning. She has blisters on fingers 1-4 of the hand and a few blisters on the bridge of her nose. She has used calamine lotion for it. She is getting in 2 weeks and is afraid it will not be gone by then. Review of Systems Constitutional: Negative. Negative for fever. Musculoskeletal: Negative. Skin: Positive for itching and rash. BP 116/62 (BP Site: Left Arm, BP Position: Sitting, BP Cuff Size: Large Adult) Pulse 98 Temp 36.9 ?C (98.4 ?F) (Right Tympanic) Resp 16 Wt 132.5 kg (292 lb) SpO2 98% BMI 45.73 kg/m? PAST MEDICAL HISTORY Diagnosis Date - Anemia WITH 2ND - Asthma since 14 years old, inhaler PRN - Complex ovarian cyst - Needs follow up imaging 06/09/2013 06/09/2013 An ultrasound was done 06/04/2013 that revealed a 6w5d fetus with DELFINA of 01/24/14. There is fluid seen adjacent to the gestastional sac possible subchorionic hemorrhage. the left ovary is within normal limits but the right ovary contains a 3.8 x 3 x 3.3 cm moderately complex cyst. TKRN 01/15/2014 - Confirmed 9 x 7 x 2.5 cm multi-loculated cyst at the time of . Needs outpatient follow up via TVUS. - Congenital hip deformity - Diabetes, gestational insulin controlled - Family history of defects 06/09/2013 06/09/2013Patient's mother born with spina bifida. Patient's brother born with a hole in his heart. Patient has another brother that was born with Down syndrome. Patient and her brother born with a congenital hip deformity. Patient has had multiple corrective surgeries for the hip deformity.TKRN - Family history of Down syndrome 06/21/2014 Brother with DS - Family history of spina bifida 06/21/2014 Mom with Spina bifida in wheelchair - Gall stones 2007 Gall bladder removed - History of asthma 06/09/2013 06/09/2013Patient has a history of asthma. She uses an albuterol inhaler when necessary. TKRN - History of 06/09/2013 06/09/2013 Pt had 3 previous C sections. - History of kidney stones - Nausea/vomiting in 06/09/2013 06/09/2013She states she has nausea . Advised patient to call/come in if she has persistent vomiting or if her blood sugars were less than 70. TKRN - Ovarian cyst during 07/21/2014 07/21/14: see NT ultrasound: Right ovarian cyst 6cm - Pain in joint, pelvic region and thigh 01/10/2006 - Pancreatitis - Patient requested diagnostic testing 06/09/2013 06/09/2013 Patient desires early screening in with sequential testing. TKRN - depression - Prior macrosomia, antepartum 06/21/2014 - Short interval between pregnancies complicating , antepartum 06/09/2013 06/09/2013She delivered her previous child August 14, 2012.TKRN - Type 2 diabetes mellitus (HCC) 05/22/2013 - Type 2 diabetes mellitus complicating , antepartum 05/28/2013 06/09/2013Nikki has a history of diabetes diagnosed 4 years ago. She was unaware that she was until she went into labor with her first . With her second she started insulin during the second trimester. She was referred to Dr. Tejada at [facility] for poorly controlled diabetes on metformin alone. She has since started insulin and has an appointment today with Dr. Guevara for followup. She has been keeping track of her blood sugars and presents with a journal today and these blood sugars are copy off and given to Dr. Guevara for his review. I have discussed with the patient the importance of good control of her blood sugars during and keeping a blood sugar log for review by the Doctor. She is reminded that she is to send her blood sugars in weekly to Dr. Guevara and she is to call sooner than a week if she has persistently high, greater the 180, or low blood sugars, less than 70. She is provided with a blood sugar log today. She has not had a diabetic foot or eye exam rece PAST SURGICAL HISTORY Procedure Laterality Date - DELIVERY ONLY , low transverse x3 - DELIVERY ONLY 01/19/15 , low transverse - IANDD ABSC; SMPL OR SGL 05/2013 cyst on left upper chest - LAPAROSCOPIC CHOLEYCYSTECTOMY Cholecystectomy, lap - PAST SURGICAL HISTORY OF tubes in ears per Dr Crockett at [facility] - PAST SURGICAL HISTORY OF Tonsils and Adenoids removed per Dr Crockett at [facility] - PAST SURGICAL HISTORY OF [address] Marroquin at [facility] - REMOVAL OF OVARY/TUBE(S) 01/19/15 Salpingo-oophorectomy, right ovarian mass ALLERGIES Aspirin; Paper Tape [Other]; Penicillins MEDICATIONS metFORMIN ER (GLUCOPHAGE XR) 500 mg 24 hr tablet TAKE TWO TABLETS BY MOUTH WITH BREAKFAST AND TWO TABLETS WITH SUPPER liraglutide (VICTOZA 2-WILLIAM) 0.6 mg/0.1 mL (18 mg/3 mL) pnij Inject 1.2 mg subcutaneously once daily. insulin glargine (BASAGLAR KWIKPEN U-100 INSULIN) 100 unit/mL (3 mL) inpn Inject 40 Units subcutaneously daily at bedtime. COMPOUNDED PRESCRIPTION One Touch meter kit. blood sugar diagnostic (ONETOUCH ULTRA TEST) test strip Test blood sugar(s) 5 times daily. Dx: Type 2 DM - Controlled E11.9 Insulin: yes Lancets (ONETOUCH ULTRASOFT LANCETS) lancets Test blood sugar(s) 5 times daily. Dx: Type 2 DM - Controlled E11.9 , Insulin: yes pantoprazole DR (PROTONIX) 40 mg tablet Take 1 tablet by mouth once daily. famotidine (PEPCID) 20 mg tablet Take 1 tablet by mouth daily at bedtime. escitalopram oxalate (LEXAPRO) 20 mg tablet Take 1 tablet by mouth once daily. blood sugar diagnostic (FREESTYLE LITE STRIPS) test strip Use as directed 4 times daily. Alcohol Swabs padm Use as directed up to 5 times daily DM: yes Insulin: yes DX: E.11.9 Oral Medication Containers (SHARPS CONTAINER) misc 1 Can twice daily. insulin needles, DISPOSABLE, (PEN NEEDLE) 31 gauge x 5/16 ndle One daily with insulin COMPOUNDED PRESCRIPTION 1 Each as needed. Sharps Container. Dx:Diabetes mellitus, antepartum (648.03) Oral Medication Containers (BD SHARPS PRIVATE BANKER) misc 1 Container as needed (to disopse of insulin needles). Lancets (ONE TOUCH SURESOFT LANCING DEV) lancets Use as instructed norgestimate 0.25 mg-ethinyl estradiol 35 mcg (SPRINTEC) 0.25- 35 mg-mcg per tablet Take 1 tablet by mouth once daily. insulin glargine (LANTUS SOLOSTAR) 100 unit/mL (3 mL) inpn Inject 36 units subcutaneously once time daily FAMILY HISTORY Problem Relation Age of Onset - Diabetes Mother - Hypertension Mother - spina bifida [OTHER] Mother - Heart Father - Hypertension Father - Cancer Maternal Grandmother - Alcohol/Drug Maternal Grandmother - Heart Paternal Grandmother - Aneurysm Paternal Grandmother - Stroke Brother - Down Syndrome [OTHER] Brother - autism [OTHER] Brother step brother - seizures and cerebral palsy also - Open family hx of Neural Tube Defect [OTHER] Brother Social History Substance Use Topics - Smoking status: Never Smoker - Smokeless tobacco: Never Used Comment: mom's fiance smokes outside - Alcohol use No Objective Physical Exam Constitutional: She is well-developed, well-nourished, and in no distress. HENT: Nose: Musculoskeletal: Hands: Neurological: She is alert. Skin: Skin is warm and dry. Rash noted. There is erythema. Nursing note and vitals reviewed. ASSESSMENT/PLAN: 1. Allergic contact dermatitis, unspecified trigger - ICD9: 692.9, ICD10: L23.9 - Oral Steriod tx -Medrol dose pack - Topical steriod tx with Rx for steriod cream/ointment- see orders - Anti itch therapy of Calomine lotion recommended prn - discussed skin care of rash - follow up if symptoms persist or worsen. - TRIAMCINOLONE ACETONIDE 0.025 % TOPICAL CREAM - METHYLPREDNISOLONE 4 MG TABLETS IN A DOSE PACK - Follow-up with your PCP in 3-5 days if symptoms have not improved or sooner if symptoms worsen - Discussed red flags and need for immediate medical evaluation if any occur. - Discussed supportive care treatment with fluids, rest and analgesia. - Discussed expected course of illness Delia Michael APRN.Delia Mei ([facility]) 10/13/2017 10:31 AM Signed [facility] PATIENT INFO POISON ZARA INTRODUCTION When the skin comes in direct contact with an irritating or allergy-causing substance, contact dermatitis can develop. Exposure to poison zara, poison oak, and poison sumac cause more cases of allergic contact dermatitis than all other plant families combined. People of all ethnicities and skin types are at risk for developing poison zara dermatitis. The severity of the reaction tends to decrease with age, especially in people who have had mild reactions in the past. People in occupations such as firefighting, forestry, and farming are at a higher risk of poison zara dermatitis because of repeated exposure to toxic plants. POISON ZARA CAUSES Poison zara, poison oak, and poison sumac plants all contain a compound called urushiol, which is a light, colorless oil that is found on the fruit, leaves, stem, root, and sap of the plant. When urushiol is exposed to air, it turns brown and the plant leaves develop small black spots. There are several ways that you can be exposed to urushiol: ? By touching the sap or rubbing against the leaves of the toxic plant ? By touching something that has urushiol on it, such as animal fur or garden tools ? By breathing in smoke when toxic plants are burned ? Ginkgo fruit and the skin of mangoes also contain urushiol and can produce symptoms similar to poison zara dermatitis. IDENTIFYING POISON ZARA Leaves of three, let them be is a phrase often used to identify plants that cause poison zara dermatitis. Generally, poison zara and poison oak have three leaves with flowering branches on a single stem. Poison sumac has five, seven, or more leaves that angle upward toward the top of the stem. Some types of poison zara produce a green or off-white fruit in laura, and in some cases, black dots form on the plants' leaves. It is not always possible to identify the plant by the leaves alone since the appearance can vary depending upon the season, growth cycle, region, and climate. Poison zara, oak, and sumac plants grow in many areas across the [facility] and throughout the world. [place] of the [facility], poison zara commonly grows as a climbing vine. In the [place] area and west, poison zara tends to grow low to the ground as a shrub. Poison oak most often grows west of the [facility], and poison sumac inhabits boggy areas in the [facility] part of the [facility]. The plants are not usually found in areas at high elevations or in desert climates. POISON ZARA SIGNS AND SYMPTOMS After contact with urushiol, approximately 50 percent of people develop signs and symptoms of poison zara dermatitis. The symptoms and severity differ from person to person. The most common signs and symptoms of poison zara dermatitis are: ? Intense itching ? Skin swelling ? Skin redness These symptoms usually develop within four hours to four days after exposure to the urushiol. After the initial symptoms, you will develop fluid-filled blisters in a line or streak-like pattern. The symptoms are worst within 1 to 14 days after touching the plant, but can develop up to 21 days later if you have never been exposed to urushiol before. The blisters can occur at different times in different people; blisters can develop on the arms several days after blisters on the hands developed. This does not mean that the reaction is spreading from one area of the body to the other. The fluid that leaks from blisters does not cause symptoms. Poison zara dermatitis is not contagious and cannot be passed from person to person. However, urushiol can be carried under fingernails and on clothes; if another person comes in contact with the urushiol, they can develop poison zara dermatitis. POISON ZARA DIAGNOSIS Poison zara is usually diagnosed based upon how your skin looks. Further testing is not usually necessary. POISON ZARA TREATMENT Poison zara dermatitis usually resolves within one to three weeks without treatment. Treatments that may help relieve the itching, soreness, and discomfort caused by poison zara dermatitis include: Skin treatments ? For some people, adding oatmeal to a bath, applying cool wet compresses, and applying calamine lotion may help to relieve itching. Once the blisters begin weeping fluid, astringents containing aluminum acetate (Tariq's solution) and Domeboro may help to relieve the rash. Antihistamines ? Antihistamines may help to relieve itching caused by poison zara dermatitis. Some antihistamines make you sleepy while others do not. ? Antihistamines that make you sleepy (eg, diphenhydramine [Benadryl?]) may be helpful if you have trouble sleeping due to itching. ? Other formulas (eg, loratadine [Claritin?], cetirizine [Zyrtec?]) may be preferable for daytime. Steroid creams ? Steroid creams may be helpful if they are used during the first few days after symptoms develop. Low potency steroid creams, such as 1 percent hydrocortisone (available in the [place] without prescription) are not usually helpful. A stronger prescription formula may be helpful. Steroids ? If you develop severe symptoms or the rash covers a large area (especially on the face or genitals), you may need steroid pills or injections (eg, prednisone) to help relieve itching and swelling. Pills are usually given for 14 to 21 days, with the dosage slowly decreased over time. Antibiotics ? Skin infections are a potential complication of poison zara, especially if you scratch your skin. If you develop a skin infection because of poison zara dermatitis, you may need antibiotics to treat the infection. Other treatments ? An herbal therapy called jewelweed extract has been used to treat poison zara dermatitis, although it has not been proven effective. You should not use antihistamine creams or lotions, anesthetic creams containing benzocaine, or antibiotic creams containing neomycin or bacitracin to the skin. These creams or ointments could make the rash worse. POISON ZARA PREVENTION The best way to prevent poison zara dermatitis is to identify and avoid the plants that cause it. These plants can irritate the skin year round, even during the winter months, and can still cause a reaction years after the plant dies. ? Wear protective clothing, including long sleeves and pants when working in areas where toxic plants may be found. Keep in mind that the resin and oils from the toxic plants can be carried on clothing, pets, and under fingernails. ? Wear heavy-duty vinyl gloves when doing yard work or gardening. The oils from toxic plants can seep through latex or rubber gloves. ? After coming in contact with poison zara, remove any contaminated clothing and gently wash (do not scrub or rub) you skin and under the fingernails with mild soap and water as soon as possible. Washing within two hours after exposure can reduce the likelihood and severity of symptoms; washing the skin after you have symptoms will not help. ? Creams and ointments that create a barrier between the skin and the urushiol oil may be somewhat effective for people who are frequently exposed to poison zara. Bentoquatam (Zara Block?) is one type of barrier cream that may prevent poison zara dermatitis. It must be reapplied every four hours and it leaves a caprice residue on the skin. ? Avoid burning poisonous vegetation, which can disperse the plant particles in the smoke, irritate the skin, and cause poison zara dermatitis. Referring Provider: SELF [[id number]] Allergies As of Date: 10/13/2017 Noted Allergy Reaction ASPIRIN 09/18/2005 4 - Hives 8 - GI Upset paper tape [Other] 06/26/2005 2 - Rash 7 - Swelling 9 - Itching Comments: Area gets very red also PENICILLINS 05/11/2013 4 - Hives Date Reviewed: 10/13/2017 Reviewed by: Delia Michael ([facility]) - Fully Assessed Reason for Visit: poision zara [Other] Primary Visit Diagnosis:Allergic contact dermatitis, unspecified trigger [L23.9] Order(s):triamcinolone (KENALOG) 0.025 % creamApply 1 application to affected area twice daily.Disp: 15 gRfl: 0 methylPREDNISolone (MEDROL, WILLIAM,) 4 mg Dose-PackFollow dosing instructions, take with food.Disp: 1 PackageRfl: 0 Prescriptions as of 10/13/2017 Sig: METFORMIN ER 500 MG TABLET,EX* TAKE TWO TABLETS BY MOUTH WIT* LIRAGLUTIDE 0.6 MG/0.1 ML (18* Inject 1.2 mg subcutaneously * INSULIN GLARGINE (U-100) 100 * Inject 40 Units subcutaneousl* COMPOUNDED PRESCRIPTION One Touch meter kit. BLOOD SUGAR DIAGNOSTIC STRIPS Test blood sugar(s) 5 times d* LANCETS Test blood sugar(s) 5 times * PANTOPRAZOLE 40 MG TABLET,DEL* Take 1 tablet by mouth once d* FAMOTIDINE 20 MG TABLET Take 1 tablet by mouth daily * ESCITALOPRAM 20 MG TABLET Take 1 tablet by mouth once d* BLOOD SUGAR DIAGNOSTIC STRIPS Use as directed 4 times daily. ALCOHOL SWABS Use as directed up to 5 times* EMPTY CONTAINER 1 Can twice daily. PEN NEEDLE, DIABETIC 31 GAUGE* One daily with insulin COMPOUNDED PRESCRIPTION 1 Each as needed. Sharps Cont* EMPTY CONTAINER 1 Container as needed (to dis* LANCETS Use as instructed TRIAMCINOLONE ACETONIDE 0.025* Apply 1 application to affect* METHYLPREDNISOLONE 4 MG TABLE* Follow dosing instructions, t* INSULIN GLARGINE (U-100) 100 * Inject 36 units subcutaneousl* Problem List As Of Date 10/13/2017 Noted Resolved Type 2 diabetes mellitus (HCC) [E11.9] INVALID FOR* More... More... More... Obesity, unspecified [E66.9] INVALID FOR* More... History of flank pain [Z87.898] INVALID FOR*06/21/2014 More... More... More... History of depression [Z86.59] INVALID FOR* More... More... More... More... More... More... More... Depression [F32.9] INVALID FOR* Other instructions from your clinician: EXPRESS CARE PATIENT INFO POISON ZARA INTRODUCTION When the skin comes in direct contact with an irritating or allergy-causing substance, contact dermatitis can develop. Exposure to poison zara, poison oak, and poison sumac cause more cases of allergic contact dermatitis than all other plant families combined. People of all ethnicities and skin types are at risk for developing poison zara dermatitis. The severity of the reaction tends to decrease with age, especially in people who have had mild reactions in the past. People in occupations such as firefighting, forestry, and farming are at a higher risk of poison zara dermatitis because of repeated exposure to toxic plants. POISON ZARA CAUSES Poison zara, poison oak, and poison sumac plants all contain a compound called urushiol, which is a light, colorless oil that is found on the fruit, leaves, stem, root, and sap of the plant. When urushiol is exposed to air, it turns brown and the plant leaves develop small black spots. There are several ways that you can be exposed to urushiol: ? By touching the sap or rubbing against the leaves of the toxic plant ? By touching something that has urushiol on it, such as animal fur or garden tools ? By breathing in smoke when toxic plants are burned ? Ginkgo fruit and the skin of mangoes also contain urushiol and can produce symptoms similar to poison zara dermatitis. IDENTIFYING POISON ZARA Leaves of three, let them be is a phrase often used to identify plants that cause poison zara dermatitis. Generally, poison zara and poison oak have three leaves with flowering branches on a single stem. Poison sumac has five, seven, or more leaves that angle upward toward the top of the stem. Some types of poison zara produce a green or off-white fruit in laura, and in some cases, black dots form on the plants' leaves. It is not always possible to identify the plant by the leaves alone since the appearance can vary depending upon the season, growth cycle, region, and climate. Poison zara, oak, and sumac plants grow in many areas across the [facility] and throughout the world. East of the [facility], poison zara commonly grows as a climbing vine. In the [place] area and west, poison zara tends to grow low to the ground as a shrub. Poison oak most often grows west of the [facility], and poison sumac inhabits boggy areas in the southeastern part of the [facility]. The plants are not usually found in areas at high elevations or in desert climates. POISON ZARA SIGNS AND SYMPTOMS After contact with urushiol, approximately 50 percent of people develop signs and symptoms of poison zara dermatitis. The symptoms and severity differ from person to person. The most common signs and symptoms of poison zara dermatitis are: ? Intense itching ? Skin swelling ? Skin redness These symptoms usually develop within four hours to four days after exposure to the urushiol. After the initial symptoms, you will develop fluid-filled blisters in a line or streak-like pattern. The symptoms are worst within 1 to 14 days after touching the plant, but can develop up to 21 days later if you have never been exposed to urushiol before. The blisters can occur at different times in different people; blisters can develop on the arms several days after blisters on the hands developed. This does not mean that the reaction is spreading from one area of the body to the other. The fluid that leaks from blisters does not cause symptoms. Poison zara dermatitis is not contagious and cannot be passed from person to person. However, urushiol can be carried under fingernails and on clothes; if another person comes in contact with the urushiol, they can develop poison zara dermatitis. POISON ZARA DIAGNOSIS Poison zara is usually diagnosed based upon how your skin looks. Further testing is not usually necessary. POISON ZARA TREATMENT Poison zara dermatitis usually resolves within one to three weeks without treatment. Treatments that may help relieve the itching, soreness, and discomfort caused by poison zara dermatitis include: Skin treatments ? For some people, adding oatmeal to a bath, applying cool wet compresses, and applying calamine lotion may help to relieve itching. Once the blisters begin weeping fluid, astringents containing aluminum acetate (Tariq's solution) and [place] may help to relieve the rash. Antihistamines ? Antihistamines may help to relieve itching caused by poison zara dermatitis. Some antihistamines make you sleepy while others do not. ? Antihistamines that make you sleepy (eg, diphenhydramine [Benadryl?]) may be helpful if you have trouble sleeping due to itching. ? Other formulas (eg, loratadine [Claritin?], cetirizine [Zyrtec?]) may be preferable for daytime. Steroid creams ? Steroid creams may be helpful if they are used during the first few days after symptoms develop. Low potency steroid creams, such as 1 percent hydrocortisone (available in the [place] without prescription) are not usually helpful. A stronger prescription formula may be helpful. Steroids ? If you develop severe symptoms or the rash covers a large area (especially on the face or genitals), you may need steroid pills or injections (eg, prednisone) to help relieve itching and swelling. Pills are usually given for 14 to 21 days, with the dosage slowly decreased over time. Antibiotics ? Skin infections are a potential complication of poison zara, especially if you scratch your skin. If you develop a skin infection because of poison zara dermatitis, you may need antibiotics to treat the infection. Other treatments ? An herbal therapy called jewelweed extract has been used to treat poison zara dermatitis, although it has not been proven effective. You should not use antihistamine creams or lotions, anesthetic creams containing benzocaine, or antibiotic creams containing neomycin or bacitracin to the skin. These creams or ointments could make the rash worse. POISON ZARA PREVENTION The best way to prevent poison zara dermatitis is to identify and avoid the plants that cause it. These plants can irritate the skin year round, even during the winter months, and can still cause a reaction years after the plant dies. ? Wear protective clothing, including long sleeves and pants when working in areas where toxic plants may be found. Keep in mind that the resin and oils from the toxic plants can be carried on clothing, pets, and under fingernails. ? Wear heavy-duty vinyl gloves when doing yard work or gardening. The oils from toxic plants can seep through latex or rubber gloves. ? After coming in contact with poison zara, remove any contaminated clothing and gently wash (do not scrub or rub) you skin and under the fingernails with mild soap and water as soon as possible. Washing within two hours after exposure can reduce the likelihood and severity of symptoms; washing the skin after you have symptoms will not help. ? Creams and ointments that create a barrier between the skin and the urushiol oil may be somewhat effective for people who are frequently exposed to poison zaar. Bentoquatam (Zara Block?) is one type of barrier cream that may prevent poison zara dermatitis. It must be reapplied every four hours and it leaves a caprice residue on the skin. ? Avoid burning poisonous vegetation, which can disperse the plant particles in the smoke, irritate the skin, and cause poison zara dermatitis. Prescriptions ordered this encounter Disp Refills Start End TRIAMCINOLONE ACETONIDE 0.025 % TOPI* 15 g 0 10/13/2017 Route: TOPICAL Sig: Apply 1 application to affected area twice daily. METHYLPREDNISOLONE 4 MG TABLETS IN A* 1 Pa* 0 10/13/2017 10/19/2017 Sig: Follow dosing instructions, take with food. Medications Discontinued During This Encounter norgestimate 0.25 mg-ethinyl estradi* 1 Pa* 12 11/21/2016 10/13/2017 Route: ORAL Sig: Take 1 tablet by mouth once daily. Disc: Reason for discontinue is not on file. Encounter Status:Closed by DELIA MICHAEL on 10/13/17 JUNAID Observed: 10/01/2017 Status: COMPLETED Source: [place] 12:[address] [facility] MIRZA DAIGLE ([id number]) 1990 F Date Time Provider Department 10/01/17 [facility] your visit today, we recorded the following information about you: Allergies As of Date: 10/01/2017 Noted Allergy Reaction ASPIRIN 09/18/2005 4 - Hives 8 - GI Upset paper tape [Other] 06/26/2005 2 - Rash 7 - Swelling 9 - Itching Comments: Area gets very red also PENICILLINS 05/11/2013 4 - Hives Date Reviewed: 08/03/2017 Reviewed by: Ana Lacey Ma - Fully Assessed Visit Diagnosis:Medication management [Z79.899] Order(s):ALBUMIN/CREAT RATIO RND UR [SQUACR] Order #: [id number] FUTURE LIPID PANEL BASIC [SQLIPB] Order #: [id number] FUTURE Prescriptions as of 10/01/2017 Sig: METFORMIN ER 500 MG TABLET,EX* TAKE TWO TABLETS BY MOUTH WIT* LIRAGLUTIDE 0.6 MG/0.1 ML (18* Inject 1.2 mg subcutaneously * INSULIN GLARGINE (U-100) 100 * Inject 40 Units subcutaneousl* COMPOUNDED PRESCRIPTION One Touch meter kit. LANCETS Test blood sugar(s) 5 times * X BLOOD SUGAR DIAGNOSTIC STRIPS Test blood sugar(s) 5 times d* FAMOTIDINE 20 MG TABLET Take 1 tablet by mouth daily * X PANTOPRAZOLE 40 MG TABLET,DEL* Take 1 tablet by mouth once d* X NORGESTIMATE 0.25 MG-ETHINYL * Take 1 tablet by mouth once d* X INSULIN GLARGINE (U-100) 100 * Inject 36 units subcutaneousl* X ESCITALOPRAM 20 MG TABLET Take 1 tablet by mouth once d* X BLOOD SUGAR DIAGNOSTIC STRIPS Use as directed 4 times daily. ALCOHOL SWABS Use as directed up to 5 times* EMPTY CONTAINER 1 Can twice daily. PEN NEEDLE, DIABETIC 31 GAUGE* One daily with insulin COMPOUNDED PRESCRIPTION 1 Each as needed. Sharps Cont* EMPTY CONTAINER 1 Container as needed (to dis* LANCETS Use as instructed Problem List As Of Date 10/01/2017 Noted Resolved Type 2 diabetes mellitus (HCC) [E11.9] INVALID FOR* More... More... More... Obesity, unspecified [E66.9] INVALID FOR* More... History of flank pain [Z87.898] INVALID FOR*06/21/2014 More... More... More... History of depression [Z86.59] INVALID FOR* More... More... More... More... More... More... More... Depression [F32.9] INVALID FOR* Encounter Status:Closed by BERTHA, PRODUSER on 03/14/18 OPERATIVE REPORT Observed: 09/20/2017 Status: F Source: [place] 6:53 AM [facility] Medical Records Department [address] [place] [address] Operative Report 09/20/17 0648 MR#: [id number] Acct: [id number] Name: MIRZA ZIMMERMAN Selam Rep #: [id number] : 1990 27 From: Zuleyma Collado MD PCP: Sunny Wells MD Status: DEP [facility] Y Location: [facility] Problem List (1) Missed ab Status: Acute (2) Retained products of conception after miscarriage Status: Acute (3) Diabetes mellitus Status: Chronic Report of Operation Date of Procedure: 09/19/17 Pre-Operative Diagnosis: retained poc Post-Operative Diagnosis: same Surgery/Procedure Performed:: suction d and c Description of Surgical Findings:: minimal intrauterine tissue Type of Anesthesia:: Local MAC Special Medications: doxycycline Specimen's removed: endometrial currettings Drains: none Estimated Blood Loss (mL): minimal Fluids Replaced: crystalloid Description of Procedure: Patient was evaluated preoperatively and found to have possible retained POC after a d and c. Patient was counseled regarding the risk of infection and paina nd bleeding associated with possible retained porducts and the risks of multiple surgeries causing intrauterine scar tissue in the future, but due to risks it was decided to proceed with repeat d and c. Patient received IV anesthesia was prepped and draped in normal sterile fashion in the dorsal lithotomy position. Cervix was grasped with ring forceps and previously dilated to allow passage of a 7 mm suction curette. Uterus sounded 10 cm. Multiple passes were made with the suction curette with minimal tissue return and then sharp curettage was formed to confirm all removal of products of conception. bedside US was performed and lining was noted to be thin and visually less then 5 mm with no retained POC. All instruments were removed from the vagina and patient was awoken and taken recovery in stable condition. Grafts/Implants Used: none - Complications none 09/20/17 0653 <Electronically signed by Zuleyma Collado MD> Date Zuleyma Collado MD CC: Sunny Wells MD; Zuleyma Collado MD Signed DISCHARGE INSTRUCTION Observed: 09/19/2017 Status: F Source: [place] 5:44 PM [facility] Medical Records Department [address] [place] [address] Instructions for Home/Discharge Instructions 09/19/17 1743 MR#: [id number] Acct: [id number] Name: MIRZA ZIMMERMAN Rep #: [id number] : 1990 27 From: Zuleyma Collado MD PCP: Sunny Wells MD Status: REG [facility] Discharge Diet: No Restrictions Discharge Activity: Return to Normal Activity, May Shower, May Take a Tub Bath Allergies/Adverse Reactions: Allergies aspirin Allergy (Verified 09/18/17 09:54) Rash Penicillins Allergy (Verified 09/18/17 09:54) Rash PAPER TAPE Allergy (Uncoded 09/12/17 14:54) Other RED WELTS Medications to take at Discharge Metformin HCl [Glucophage] 1,000 mg PO BIDCM #60 tab 07/11/15 Liraglutide [Victoza 2-William] 1.2 unit SC DAILY 09/08/17 insulin glargine (U-100) 100 unit/mL (3 mL) subcutaneous pen 38 unit SC QHS ml 09/12/17 doxycycline hyclate 100 mg capsule 100 mg PO BID #20 cap 09/18/17 Naproxen [Naprosyn] 250 - 500 mg PO Q8H PRN PRN #30 tab 09/19/17 Oxycodone HCl/Acetaminophen [Percocet 5-325] 1 - 2 tablet PO Q4H PRN PRN 7 Days #15 tablet 09/19/17 The following prescriptions were given: Oxycodone HCl/Acetaminophen [Percocet 5-325] 1 - 2 tablet PO Q4H PRN PRN 7 Days #15 tablet PRN Reason: Pain Naproxen [Naprosyn] 250 - 500 mg PO Q8H PRN PRN #30 tab PRN Reason: MILD PAIN Primary Care Physician: Sunny Wells MD [Primary Care Provider] - Please Follow Up With: Zuleyma Collado MD - [phone] When: in 2-3 weeks. take doxycycline x 10 days as previously ordered 09/19/17 9372 <Electronically signed by Zuleyma Collado MD> Date Zuleyma Collado MD CC: Sunny Wells MD HISTORY AND PHYSICAL Observed: 09/19/2017 Status: F Source: [place] 4:57 PM [facility] Medical Records Department [address] [place] [address] History and Physical 09/19/17 6236 MR#: [id number] Acct: [id number] Name: MIRZA ZIMMERMAN Rep #: [id number] : 1990 27 From: Zuleyma Collado MD PCP: Sunny Wells MD Status: REG SD Y Location: [address] - Problem List (1) Missed ab Status: Acute History and Physical Date of Admission: 09/19/17 36 Viewing date range: 03/15/17 - 09/19/17 No data to display Future (all) No data to display Past (last three) Provider Location Date Zuleyma Collado [facility] 09/19/17 Zuleyma Collado Outpatient Ultrasound 09/19/17 Zuleyma Collado [facility] 09/18/17 09/19/17 09/19/17 09/18/17 09/15/17 09/14/17 09/13/17 09/13/17 09/13/17 09/13/17 09/13/17 09/13/17 09/13/17 SUCTION D AND C, SURGERY 09/12/17 04/12/18 04/12/18 04/08/18 04/08/18 04/08/18 04/08/18 03/01/18 02/21/18 04/13/18 01/15/18 04/13/18 04/13/18 04/13/18 04/13/18 04/13/18 04/13/18 04/13/18 04/13/18 04/13/18 04/13/18 04/08/18 04/08/18 04/08/18 04/08/18 04/08/18 04/08/18 04/08/18 04/08/18 04/08/18 01/15/18 01/15/18 01/15/18 01/15/18 01/15/18 01/15/18 01/15/18 01/15/18 01/15/18 01/15/18 01/15/18 01/15/18 01/15/18 01/15/18 01/15/18 01/15/18 01/15/18 01/15/18 01/15/18 01/15/18 01/15/18 01/15/18 01/15/18 01/15/18 01/1506/17/17 06/17/17 06/17/17 06/17/17 06/17/17 06/17/17 06/17/17 06/17/17 06/17/17 06/17/17 06/17/17 06/17/17 06/17/17 06/17/17 06/17/17 06/17/17 06/17/17 06/17/17 06/17/17 06/17/17 09/08/17 09/08/17 09/08/17 09/08/17 09/08/17 09/08/17 09/08/17 09/08/17 09/08/17 09/08/17 09/08/17 09/08/17 09/08/17 09/08/17 06/17/17 09/08/17 09/08/17 09/08/17 04/28/17 09/08/17 09/08/17 09/08/17 09/08/17 09/08/17 09/08/17 09/08/17 09/08/17 09/08/17 09/08/17 09/08/17 09/08/17 09/08/17 09/08/17 09/08/17 09/08/17 09/08/17 09/08/17 09/08/17 09/08/17 09/08/17 09/08/17 09/08/17 09/08/17 08/01/17 09/19/17 09/13/17 09/13/17 [facility] Rec Num [id number] Address [address] [place] [address] Preferred Portal Not Enrolled Person to Notify Name Phone Relation to Patient - Active Cancelled 09/08/17 Discontinued 09/19/17 Cancelled 09/08/17 Discontinued 09/12/17 Rash Rash Other Onset Medical History Status Onset Diabetes mellitus Chronic Surgical History S/P dilation and curettage Acute 09/13/17 *s/p right hip surgery Resolved S/P Resolved S/P cholecystectomy Resolved Family History Diabetes Mother CVA (cerebral vascular accident) Mother Diabetes Father Diabetes Grandmother Diabetes Grandfather Social History what type of physical activity do you participate in walking bicycling frequency 1-2 times per week Smoking Status Never smoker alcohol intake never substance use type does not use seatbelt use always do you feel safe at home Yes additional social history 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 Yes Problems Postoperative abdominal pain Plan recommend pelvic us and prophylactic antibiotics for patient due to postoperative pain Orders Orders: Pelvic (Non ) Today R10.2 Transvaginal Non- Today R10.2 Medications New: doxycycline hyclate 100 mg PO BID No data to display 09/19/17 09/13/17 09/13/17 09/13/17 09/13/17 06/17/17 06/17/17 03/15/17 Mirza Zimmerman N 27 F 1990 Search Chart Rash Rash Other Onset Cancelled 09/08/17 Discontinued 09/19/17 Cancelled 09/08/17 Discontinued 09/12/17 No data to display Medical History Status Onset Diabetes mellitus Chronic Surgical History S/P dilation and curettage Acute 09/13/17 *s/p right hip surgery Resolved S/P Resolved S/P cholecystectomy Resolved Family History Diabetes Mother CVA (cerebral vascular accident) Mother Diabetes Father Diabetes Grandmother Diabetes Grandfather Social History what type of physical activity do you participate in walking bicycling frequency 1-2 times per week Smoking Status Never smoker alcohol intake never substance use type does not use seatbelt use always do you feel safe at home Yes additional social history 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 Yes Problems Postoperative abdominal pain Plan recommend pelvic us and prophylactic antibiotics for patient due to postoperative pain Orders Orders: Pelvic (Non ) Today R10.2 Transvaginal Non- Today R10.2 Medications New: doxycycline hyclate 100 mg PO BID 04/13/18 01/15/18 04/13/18 04/13/18 04/13/18 04/13/18 04/13/18 04/13/18 04/13/18 04/13/18 04/13/18 04/13/18 04/08/18 04/08/18 04/08/18 04/08/18 04/08/18 04/08/18 04/08/18 04/08/18 0406/17/17 06/17/17 06/17/17 06/17/17 06/17/17 06/17/17 06/17/17 06/17/17 06/17/17 06/17/17 06/17/17 06/17/17 06/17/17 06/17/17 06/17/17 06/17/17 06/17/17 06/17/17 06/17/17 06/17/17 06/17/17 06/17/17 06/17/17 06/17/17 06/17/17 06/17/17 06/17/17 06/17/17 06/17/17 06/17/17 06/17/17 06/17/17 06/17/17 06/17/17 06/17/17 06/17/17 06/17/17 06/17/17 06/17/17 06/17/17 06/17/17 06/17/17 06/17/17 06/17/17 06/17/17 09/08/17 09/08/17 09/08/17 09/08/17 09/08/17 09/08/17 09/08/17 09/08/17 09/08/17 09/08/17 09/08/17 09/08/17 09/08/17 09/08/17 06/17/17 09/08/17 09/08/17 09/08/17 04/28/17 09/08/17 09/08/17 09/08/17 09/08/17 09/08/17 09/08/17 09/08/17 09/08/17 09/08/17 09/08/17 09/08/17 09/08/17 09/08/17 09/08/17 09/08/17 09/08/17 09/08/17 09/08/17 09/08/17 09/08/17 09/08/17 09/08/17 09/08/17 09/08/17 08/01/17 09/19/17 09/13/17 09/13/17 No data to display 09/13/17 09/18/17 Today [facility]12 (preferred) [facility] 04/19/18 04/1909/18/17 09/15/17 09/14/17 09/13/17 09/13/17 09/13/17 09/13/17 09/13/17 09/13/17 09/13/17 SUCTION D AND C, SURGERY 09/12/17 09/12/17 09/12/17 09/08/17 09/08/17 09/08/17 09/08/17 08/01/17 07/24/17 Future (all) No data to display Past (last three) Provider Location Date Zuleyma Collado [facility] 09/19/17 Zuleyma Collado Outpatient Ultrasound 09/19/17 Zuleyma Collado [facility] 09/18/17 No data to display [employer] REPAIRER Visit [facility] [address] [place] [address] OFFICE VISIT Date of Service: 09/18/17 MR#:[id number]:[id number] Name: ELSIEAYESHAADELEMOHIT [facility] #:[id number] : 1990 Provider:Zuleyma Collado MD Age/Sex: 27/F Location:[facility] Status:Signed Intake Vital Signs 09/18/17 Height 5 ft 7 in 09/18/17 Weight: 294 lb 6 oz 09/18/17 Body Mass Index (BMI) 46.0 09/18/17 Blood Pressure 108/68 Intake Visit Reasons: F/U D AND C-in a lot of pain Surgical Coordinator Required: No Is patient in pain?: Yes Pain scale (1-10): 10 Allergies aspirin Allergy (Verified 09/18/17 09:54) Rash Penicillins Allergy (Verified 09/18/17 09:54) Rash PAPER TAPE Allergy (Uncoded 09/12/17 14:54) Other Medications Metformin HCl [Glucophage] 1,000 mg PO BIDCM #60 tab 07/11/15 [Rx Confirmed 09/18/17] Liraglutide [Victoza 2-William] 1.2 unit SC DAILY 09/08/17 [History Confirmed 09/18/17] insulin glargine (U-100) 100 unit/mL (3 mL) subcutaneous pen 38 unit SC QHS ml 09/12/17 [History Confirmed 09/18/17] oxycodone-acetaminophen 5 mg-325 mg tablet 1 tab PO Q4H PRN 3 Days #14 tab 09/16/17 [Rx Confirmed 09/18/17] doxycycline hyclate 100 mg capsule 100 mg PO BID #20 cap 09/18/17 [Rx Confirmed 09/18/17] Post menopausal: No Patient : No : No PFSH Medical History Diabetes mellitus (Chronic) Surgical History S/P dilation and curettage (Acute 09/13/17) S/P (Resolved) S/P cholecystectomy (Resolved) s/p right hip surgery (Resolved) Family History Mother Diabetes CVA (cerebral vascular accident) Father Diabetes Grandmother Diabetes Grandfather Diabetes Social History Smoking Status: Never smoker alcohol intake: never substance use type: does not use caffeine: Yes what type of physical activity do you participate in: walking, bicycling frequency: 1-2 times per week seatbelt use: always do you feel safe at home: Yes additional social history: Engaged (getting next month)- [employer] for [employer] Patient is stay at home mom HPI F/U D AND C-in a lot of pain: Details: MIRZA ZIMMERMAN is a 27 year old who presents for persistent posotperative pain. she co decreasing vaginal bleeding, no fevers, no foul smelling discarge but lower pelvic pain and vaginal pressure that is reena partly relieved with pain meds. bs are under 200. Pregancy History 6 Elective abortions Hx Para 4 Spontaneous abortions Hx # Term Pregnancies Ectopic pregnancies Hx # Pregnancies Multiple births # of living children Past Pregnancies Del. Date Name GA/Weeks Outcome Route Bth Weight Gen Labor Lgth Anesthesia Del Locatn Provider FOB 09/26/06 Miracle Female [facility] 08/14/12 Deejay live - full term [place] 01/15/14 Jim 38 live - full term [place] 01/19/15 Stacy 38 live - full term [facility] ROS Const Constitutional: Reports system reviewed and no additional complaints, except as docu GI GI: Reports as per HPI : Reports as per HPI Exam Const General: cooperative, healthy appearing, comfortable, no acute distress, well developed Nutritional Appearance: average body habitus Orientation: alert HENMT Head: normal to inspection, normocephalic Neck Neck: normal visual inspection, trachea midline Thyroid: thyroid normal Resp Effort AND Inspection: normal respiratory effort GI Inspection: normal to inspection, non-distended Palpation: soft, no hepatosplenomegaly External Female Exam: normal external appearance, normal appearance of the urethra Urethra: normal appearance of the urethra, normal palpation, no discharge Speculum Exam - Vagina: normal appearance of the vagina, normal vaginal discharge Speculum Exam - Cervix: normal appearance of the cervix, nontender Bimanual Exam- Vagina AND Uterus: No cervical tenderness, uterine size normal, uterine shape normal, uterine mobility normal, uterine consistency normal, normal cervical palpation, uterus tender Bimanual Exam- Adnexa, other: normal adnexae, adnexae mobile, no adnexal masses, pelvic support normal Pelvic Support: normal Skin General: no rashes or lesions noted Assessment AND Plan Problems 1. Postoperative abdominal pain R10.9; G89.18 Plan recommend pelvic us and prophylactic antibiotics for patient due to postoperative pain US shows questionable retained POC- recommend repeat d and c 09/19/17 4947 <Electronically signed by Zuleyma Collado MD> Date Zuleyma Collado MD Cosigner Signature: Date (if applicable) CC: Sunny Wells MD; Zuleyma Collado MD Signed BEDSIDE GLUCOSE Collected: 09/19/2017 Status: F Source: [place] 1:31 PM [facility] [place] [place] CODE TESTS RESULT OUT OF RANGE REFERENCE UNITS LAB L501.080 70-110 mg/dL Normal BEDSIDE GLU 102 Result Comment: MANAGEMENT OF PATIENT CARE PER NURSING PROTOCOL Performed By: #### L501.080 #### [facility] Point of Care [address] [place], [place] [address] [address] PELVIC (NON ) Observed: 09/19/2017 Status: F Source: [place] 8:07 AM [facility] [place] [place] [address] Pelvic (Non ) MR#: [id number] Acct: [id number] Name: MIRZA ZIMMERMAN Rep #: [id number] : 1990 F 27 From: Jamison Panchal MD PCP: Sunny Wells MD Status: REG CLI Study: Pelvic (Non ) Date of Exam: 09/19/17 Exam# [id number] Ordering Dr: Zuleyma Collado MD ADDENDUM by Jamison Panchal MD on 09/19/17 at 1056 US/Pelvic (Non ) 09/19/17 1103 Date cc: Sunny Wells MD; Zuleyma Collado MD * Signed ADDENDUM by Jamison Panchal MD on 09/19/17 at 1056 ADDENDUM This is an addendum report for bolus recognition error. The patient is status post right oophorectomy.. Electronically Signed: Jamison Panchal MD at 10:56 EDT Tel [phone], Service support , 09/19/17 1056 Date cc: Sunny Wells MD; Zuleyma Collado MD * Signed STUDY: ULTRASOUND OF THE FEMALE PELVIS - COMPLETE REASON FOR EXAM: Female, 27 years old. Pelvic pain. Recent dilatation and curettage. LMP: August 05, 2017 TECHNIQUE: Transabdominal and Transvaginal TECHNICAL QUALITY: Adequate. COMPARISON: Comparison is made with prior examination dated September 08, 2017. FINDINGS: The uterus is anteverted and is in a midline position. The uterus measures 8.2 cm x 5.2 cm x 3.8 cm. Normal uterine cervix. The endometrium is thickened and measures 11.9 mm in thickness, and is heterogeneous (striated). Small amount of fluid is seen within the endometrium. Residual products of conceptions should be ruled out. There is no demonstrated endometrial mass. There is no demonstrated myometrial mass. I.U.D. - The patient does not have an I.U.D. The patient is status post right nephrectomy. The left ovary is visualized. The left ovary measures 4.3 cm x 3.0 sorry by 2.6 cm. There is no left ovarian cyst or ovarian mass. There is no visualized left adnexal mass or complex lesion. There is normal arterial and normal venous vascularity. There is no fluid in the cul-de-sac. Polycystic ovary disease: No. US/Pelvic (Non ) IMPRESSION: Thickened heterogeneous appearance of the endometrium. Retained products of conception should be ruled out. Electronically Signed: Jamison Panchal MD at 10:42 EDT Tel [phone], Service support , CC: Sunny Wells MD; Zuleyma Collado MD Plastic Card Grader Cardroom: Signed TRANSVAGINAL Observed: 09/19/2017 Status: F Source: [place] NON- 8:07 AM [facility] Imaging Services [address] [place] [address] Transvaginal Non- MR#: [id number] Acct: [id number] Name: MIRZA ZIMMERMAN Rep #: [id number] : 1990 F 27 From: Jamison Panchal MD PCP: Sunny Wells MD Status: REG CLI Study: Transvaginal Non- Date of Exam: 09/19/17 Exam# [id number] Ordering Dr: Zuleyma Collado MD ADDENDUM by Jamison Panchal MD on 09/19/17 at 1056 US/Transvaginal Non- 09/19/17 1104 Date cc: Sunny Wells MD; Zuleyma Collado MD * Signed ADDENDUM by Jamison Panchal MD on 09/19/17 at 1056 ADDENDUM This is an addendum report for bolus recognition error. The patient is status post right oophorectomy.. Electronically Signed: Jamison Panchal MD at 10:56 EDT Tel [phone], Service support , 09/19/17 1056 Date cc: Sunny Wells MD; Zuleyma Collado MD * Signed STUDY: ULTRASOUND OF THE FEMALE PELVIS - COMPLETE REASON FOR EXAM: Female, 27 years old. Pelvic pain. Recent dilatation and curettage. LMP: August 05, 2017 TECHNIQUE: Transabdominal and Transvaginal TECHNICAL QUALITY: Adequate. COMPARISON: Comparison is made with prior examination dated September 08, 2017. FINDINGS: The uterus is anteverted and is in a midline position. The uterus measures 8.2 cm x 5.2 cm x 3.8 cm. Normal uterine cervix. The endometrium is thickened and measures 11.9 mm in thickness, and is heterogeneous (striated). Small amount of fluid is seen within the endometrium. Residual products of conceptions should be ruled out. There is no demonstrated endometrial mass. There is no demonstrated myometrial mass. I.U.D. - The patient does not have an I.U.D. The patient is status post right nephrectomy. The left ovary is visualized. The left ovary measures 4.3 cm x 3.0 sorry by 2.6 cm. There is no left ovarian cyst or ovarian mass. There is no visualized left adnexal mass or complex lesion. There is normal arterial and normal venous vascularity. There is no fluid in the cul-de-sac. Polycystic ovary disease: No. US/Transvaginal Non- IMPRESSION: Thickened heterogeneous appearance of the endometrium. Retained products of conception should be ruled out. Electronically Signed: Jamison Panchal MD at 10:42 EDT Tel [phone], Service support , CC: Sunny Wells MD; Zuleyma Collado MD Plastic Card Grader Cardroom: Signed PRODUCTS OF CONCEPTION Observed: 09/19/2017 Status: F Source: [place] 12:00 AM [facility] [place] Patient: MIRZA ZIMMERMAN : 1990 (27/F) Acct Num: [id number] Phys: Zuleyma Collado MD Unit Num: [id number] Loc: [facility] Specimen: [id number] Received: 09/19/17 - 1242 Spec Type: PROD CONC TISSUES TISSUES: Product of conception, NOS COMMENT Chorionic villi are not present. Clinical correlation is suggested. GROSS DESCRIPTION Received in fixative is one container labeled with the patient's name and designated products of conception. The specimen consists of multiple irregular fragments of pink-dhz soft tissue that in aggregate measure 5 x 3 x 0.2 cm. parts are not grossly recognized. The specimen is totally submitted in two cassettes. / AM:malika 09/20/17 TC:5 CPT: 76588 HEADER OPERATION: Dilation and curettage, suction PRE-OP DIAGNOSIS: Retained products of conception TISSUE SUBMITTED: Products of conception MICROSCOPIC DESCRIPTION Slides are reviewed. MICROSCOPIC DIAGNOSIS Endometrium, curettage: Secretory endometrium. Decidualized stroma with associated blood clots. AM:malika 09/23/17 Signed Sanjeev Francisco 09/23/17 <signature on file> Performed By: #### PPOC #### [facility] [address] [place], [address] [employer] REPAIRER OFFICE VISIT Observed: 09/18/2017 Status: F Source: [place] REPORT 2:49 PM [facility] [address] [place] [address] OFFICE VISIT Date of Service: 09/18/17 MR#: [id number] Acct: [id number] Name: MIRZA ZIMMERMAN [place] Rep #: [id number] : 1990 Provider: Zuleyma Collado MD Age/Sex: 27/F Location: [facility] Status: Signed Intake Vital Signs09/18/17 Height 5 ft 7 in 09/18/17 Weight: 294 lb 6 oz 09/18/17 Body Mass Index (BMI) 46.0 09/18/17 Blood Pressure 108/68 Intake Visit Reasons: F/U D AND C-in a lot of pain Surgical Coordinator Required: No Is patient in pain?: Yes Pain scale (1-10): 10 Allergies aspirin Allergy (Verified 09/18/17 09:54) Rash Penicillins Allergy (Verified 09/18/17 09:54) Rash PAPER TAPE Allergy (Uncoded 09/12/17 14:54) Other Medications Metformin HCl [Glucophage] 1,000 mg PO BIDCM #60 tab 07/11/15 [Rx Confirmed 09/18/17] Liraglutide [Victoza 2-William] 1.2 unit SC DAILY 09/08/17 [History Confirmed 09/18/17] insulin glargine (U-100) 100 unit/mL (3 mL) subcutaneous pen 38 unit SC QHS ml 09/12/17 [History Confirmed 09/18/17] oxycodone-acetaminophen 5 mg-325 mg tablet 1 tab PO Q4H PRN 3 Days #14 tab 09/16/17 [Rx Confirmed 09/18/17] doxycycline hyclate 100 mg capsule 100 mg PO BID #20 cap 09/18/17 [Rx Confirmed 09/18/17] Post menopausal: No Patient : No : No PFSH Medical History Diabetes mellitus (Chronic) Surgical History S/P dilation and curettage (Acute 09/13/17) S/P (Resolved) S/P cholecystectomy (Resolved) s/p right hip surgery (Resolved) Family History Mother Diabetes CVA (cerebral vascular accident) Father Diabetes Grandmother Diabetes Grandfather Diabetes Social History Smoking Status: Never smoker alcohol intake: never substance use type: does not use caffeine: Yes what type of physical activity do you participate in: walking, bicycling frequency: 1-2 times per week seatbelt use: always do you feel safe at home: Yes additional social history: Engaged (getting next month)- [employer] for [employer] Patient is stay at home mom HPI F/U D AND C-in a lot of pain: Details: MIRZA ZIMMERMAN is a 27 year old who presents for persistent posotperative pain. she co decreasing vaginal bleeding, no fevers, no foul smelling discarge but lower pelvic pain and vaginal pressure that is reena partly relieved with pain meds. bs are under 200. Pregancy History 6 Elective abortions Hx Para 4 Spontaneous abortions Past Pregnancies Del. DatName GA/WeeksOutcome [facility]UTel LocaProviderFOB e ht en ia tn 09/26/06Miracle C-sectio Female [facility] n ROS Const Constitutional: Reports system reviewed and no additional complaints, except as docu GI GI: Reports as per HPI : Reports as per HPI Exam Const General: cooperative, healthy appearing, comfortable, no acute distress, well developed Nutritional Appearance: average body habitus Orientation: alert HENMT Head: normal to inspection, normocephalic Neck Neck: normal visual inspection, trachea midline Thyroid: thyroid normal Resp Effort AND Inspection: normal respiratory effort GI Inspection: normal to inspection, non-distended Palpation: soft, no hepatosplenomegaly External Female Exam: normal external appearance, normal appearance of the urethra Urethra: normal appearance of the urethra, normal palpation, no discharge Speculum Exam - Vagina: normal appearance of the vagina, normal vaginal discharge Speculum Exam - Cervix: normal appearance of the cervix, nontender Bimanual Exam- Vagina AND Uterus: No cervical tenderness, uterine size normal, uterine shape normal, uterine mobility normal, uterine consistency normal, normal cervical palpation, uterus tender Bimanual Exam- Adnexa, other: normal adnexae, adnexae mobile, no adnexal masses, pelvic support normal Pelvic Support: normal Skin General: no rashes or lesions noted Assessment AND Plan Problems 1. Postoperative abdominal pain R10.9; G89.18 Plan recommend pelvic us and prophylactic antibiotics for patient due to postoperative pain Orders Orders: Medications New: Coding Level of Care Code Off vis,est,level 3 Diagnoses Postoperative abdominal pain R10.9; G89.18 09/18/17 1449 <Electronically signed by Zuleyma Collado MD> Date Zuleyma Collado MD Cosigner Signature: Date (if applicable) CC: [employer] OFFICE VISIT Observed: 09/14/2017 Status: F Source: [place] REPORT 1:11 AM [facility] [address] [place] [address] OFFICE VISIT Date of Service: 09/12/17 MR#: [id number] Acct: [id number] Name: MIRZA ZIMMERMAN Rep #: [id number] : 1990 Provider: Zuleyma Collado MD Age/Sex: 27/F Location: [facility] Status: Signed Intake Vital Signs09/12/17 Height 5 ft 7 in 09/12/17 Weight: 293 lb 6 oz 09/12/17 Body Mass Index (BMI) 45.9 09/12/17 Blood Pressure 124/84 Intake Visit Reasons: NEW OB Surgical Coordinator Required: No Is patient in pain?: No Allergies aspirin Allergy (Verified 09/12/17 14:54) Rash Penicillins Allergy (Verified 09/12/17 14:54) Rash PAPER TAPE Allergy (Uncoded 09/12/17 14:54) Other Medications Metformin HCl [Glucophage] 1,000 mg PO BIDCM #60 tab 07/11/15 [Rx Confirmed 09/12/17] Liraglutide [Victoza 2-William] 1.2 unit SC DAILY 09/08/17 [History Confirmed 09/12/17] insulin glargine (U-100) 100 unit/mL (3 mL) subcutaneous pen 38 unit SC QHS ml 09/12/17 [History Confirmed 09/13/17] Last Menstral Period: 08/05/17 Zika: Zika virus screening: Negative : No PFSH PFSH Medical History Diabetes mellitus (Chronic) Surgical History S/P (Resolved) S/P cholecystectomy (Resolved) s/p right hip surgery (Resolved) Family History Mother Diabetes CVA (cerebral vascular accident) Father Diabetes Grandmother Diabetes Grandfather Diabetes Social History Smoking Status: Never smoker alcohol intake: never substance use type: does not use caffeine: Yes what type of physical activity do you participate in: walking, bicycling frequency: 1-2 times per week seatbelt use: always do you feel safe at home: Yes additional social history: Engaged (getting next month)- [employer] for [employer] Patient is stay at home mom Pregancy History 6 Elective abortions Hx Para 4 Spontaneous abortions Past Pregnancies Del. DatName GA/WeeksOutcome Route [facility] Zane Gardner LgAnestheMaye LocaProviderFOB e ht en tn 09/26/06Miracle C-sectio Female H n HPI NEW OB: Details: MIRZA ZIMMERMAN is a 27 year old who presents for fu of bleeding and being seen in the ER. she is supposed to be 5-6 weeks by dates but she had an ultrasound last week where the GS was measuring 7 weeks with a yolk sac seen and no pole. today ultrasound shows no pole. large almost complete subchorionic hemorrhage with yolk sac seen and the gestational sac is smaller than it was last week. she denies significant bleeding. OB Visit Menstrual History Last Menstral Period: 08/05/17 ROS Const Reports system reviewed and no additional complaints, except as docu GI Reports system reviewed and no additional complaints, except as docu Reports system reviewed and no additional complaints, except as docu Exam Const General: healthy appearing, comfortable, no acute distress Orientation: alert HENNH Head: normal to inspection, atraumatic, normocephalic Ears: external ears normal, hearing grossly normal bilaterally Nose: nares normal, external nose normal Mouth: oral mucosae normal Teeth and gingiva: dentition normal Resp Effort AND Inspection: normal respiratory effort GI Inspection: normal to inspection Palpation: soft, no hepatosplenomegaly General: bladder normal to palpation External Female Exam: normal external appearance, normal appearance of the urethra Urethra: normal appearance of the urethra Speculum Exam - Vagina: normal appearance of the vagina, normal vaginal discharge Speculum Exam - Cervix: normal appearance of the cervix Bimanual Exam- Vagina AND Uterus: bladder normal to palpation, normal bimanual exam, uterus non-tender, other Bimanual Exam- Adnexa, other: adnexae non-tender Assessment AND Plan Problems 1. Missed O02.1 Plan missed ab- discussed recommendation for either cytotec for medical managment or a suction d and c, patient wishes to proceed with a d and c Medications Discontinued: Coding Level of Care Code Off vis,est,level 4 Diagnoses Missed O02.1 09/14/17 0111 <Electronically signed by Zuleyma Collado MD> Date Zuleyma Collado MD Cosigner Signature: Date (if applicable) CC: OPERATIVE REPORT Observed: 09/14/2017 Status: F Source: [place] 12:34 AM [facility] [place] [place] [facility] Medical Records Department [address] [place] [address] Operative Report 09/14/17 0031 MR#: [id number] Acct: [id number] Name: MIRZA ZIMMERMAN Rep #: [id number] : 1990 27 From: Zuleyma Collado MD PCP: Sunny Wells MD Status: [facility] Y Location: [facility] Problem List (1) Missed ab Status: Acute Report of Operation Date of Procedure: 09/13/17 Pre-Operative Diagnosis: missed ab Post-Operative Diagnosis: same Surgery/Procedure Performed:: suction d and c Type of Anesthesia:: Local MAC Special Medications: doxy Specimen's removed: poc Drains: none Estimated Blood Loss (mL): 50 Fluids Replaced: crystalloid Description of Procedure: Patient was evaluated preoperatively and found to have a missed at 7w4d with no heart tones seen on serial us. Patient was counseled and offered medical management versus surgical and patient chose suction D AND C. Patient received IV anesthesia was prepped and draped in normal sterile fashion in the dorsal lithotomy position. Cervix was grasped with ring forceps and previously dilated to allow passage of a 8 mm suction curette. Uterus sounded 9 cm. Multiple passes were made with the suction curette to remove products of conception and then sharp curettage was formed to confirm all removal of packs of conception. All instruments were removed from the vagina and patient was awoken and taken recovery in stable condition. Grafts/Implants Used: none - Complications none 09/14/17 0034 <Electronically signed by Zuleyma Collado MD> Date Zuleyma Collado MD CC: Sunny Wells MD; Zuleyma Collado MD Signed DISCHARGE INSTRUCTION Observed: 09/13/2017 Status: F Source: [place] 2:01 PM [facility] Medical Records Department [address] [place] [address] Instructions for Home/Discharge Instructions 09/13/17 1400 MR#: [id number] Acct: [id number] Name: MIRZA ZIMMERMAN N Rep #: [id number] : 1990 From: Zuleyma Collado MD PCP: Sunny Wells MD Status: REG [facility] Discharge Diet: No Restrictions Discharge Activity: Return to Normal Activity, May Shower, May Take a Tub Bath Allergies/Adverse Reactions: Allergies aspirin Allergy (Verified 09/12/17 14:54) Rash Penicillins Allergy (Verified 09/12/17 14:54) Rash PAPER TAPE Allergy (Uncoded 09/12/17 14:54) Other RED WELTS Medications to take at Discharge Metformin HCl [Glucophage] 1,000 mg PO BIDCM #60 tab 07/11/15 Liraglutide [Victoza 2-William] 1.2 unit SC DAILY 09/08/17 insulin glargine (U-100) 100 unit/mL (3 mL) subcutaneous pen 38 unit SC QHS ml 09/12/17 Primary Care Physician: Sunny Wells MD [Primary Care Provider] - Please Follow Up With: Zuleyma Collado MD - [phone] 09/13/17 1401 <Electronically signed by Zuleyma Collado MD> Date Zuleyma Collado MD CC: Sunny Wells MD HISTORY AND PHYSICAL Observed: 09/13/2017 Status: F Source: [place] 12:45 PM [facility] Medical Records Department [address] [place] [address] History and Physical 09/13/17 1243 MR#: [id number] Acct: [id number] Name: MIRZA ZIMMERMAN Sel[place] Rep #: [id number] : 1990 From: Zuleyma Collado MD PCP: Sunny Wells MD Status: REG [facility] Y Location: [place] [address] - Problem List (1) Missed ab Status: Acute History Date of Admission: 09/13/17 History of this : 27 yo @ 8 weeks with a missed ab. no herat tones seen and severe almost complete cubchorionic hemorrhage Pertinent Past Medical History: Past Medical History (Last Reviewed 09/12/17 @ 11:41 by Myla Prather) Diabetes mellitus (Chronic) Past Surgical History (Last Updated 09/12/17 @ 11:42 by Myla Prather) S/P (Resolved) S/P cholecystectomy (Resolved) s/p right hip surgery (Resolved) Allergies aspirin Allergy (Verified 09/12/17 14:54) Rash Penicillins Allergy (Verified 09/12/17 14:54) Rash PAPER TAPE Allergy (Uncoded 09/12/17 14:54) Other RED WELTS Alcohol: None Drug Use: none Review of Systems Constitutional: Denies: Chills, Fever, Weight Change HEENT: Denies: Head Aches, Sinus Congestion, Sinus Drainage Cardiovascular: Denies: Chest Pain, Palpitations Respiratory: Denies: Cough, Shortness of breath at rest, Sputum production Gastrointestinal: Denies: Abdominal Pain, Nausea, Vomiting Genitourinary: Denies: Dysuria Musculoskeletal: Denies: Joint Pain, Joint Tenderness Skin: Denies: Rash, Wounds Neurological: Denies: Numbness, Tingling, Focal weakness Psychiatric: Denies: Anxiety, Depression, Homicidal Ideations, Suicidal Ideations Hematologic/ Lymphatic: Denies: Easy Bruising, Easy Bleeding Physical Exam Vitals: Vital Signs Temp Pulse Resp BP Pulse Ox 98.9 F 97 18 111/71 99 09/13/17 10:05 09/13/17 10:05 09/13/17 10:05 09/13/17 10:05 09/13/17 10:05 General: Alert, Oriented x3, No apparent distress Cardiovascular: Regular rate, Regular Rhythm Lungs: Clear to auscultation Abdomen: Bowel Sounds Present Assessment/Plan Active and Suspected Problems (Last Reviewed 09/12/17 @ 11:41 by Myla Prather) Missed ab (Acute) plan suction d and c for missed 09/13/17 1245 <Electronically signed by Zuleyma Collado MD> Date Zuleyma Collado MD Cosigner Signature: Date (if applicable) CC: Sunny Wells MD; Zuleyma Collado MD Signed CBC-COMPLETE BLOOD CNT Collected: 09/13/2017 Status: F Source: [place] NO DIFF 12:00 PM [facility] [place] TYPE CODE TESTS RESULT OUT OF RANGE REFERENCE UNITS LAB L100.1000 4.4-11.0 K/mm3 Normal WBC 9.7 LAB L100.1200 4.2-5.4 M/mm3 Low RBC 3.98 LAB L100.1300 12.0-15.0 g/dl Normal HGB 12.9 LAB L100.1400 37-47 % Low HCT 36.8 LAB L100.1500 81-99 fL Normal MCV 92.5 LAB L100.1600 27.0-32.0 pg High MCH 32.4 LAB L100.1700 32-36 g/gl Normal MCHC 35.1 LAB L100.1810 11.6-14.6 % Normal RDW CV 13.7 LAB L100.1820 35.1-43.9 fl High RDW SD 45.1 LAB L100.1900 150-450 K/mm3 Normal PLT 252 LAB L100.2000 6.2-12.0 fl Normal MPV 9.5 Performed By: #### L100.0500 #### [facility] [address] [place], [place], [address] TYPE AND SCREEN Collected: 09/13/2017 Status: F Source: [place] 12:00 PM [facility] [place] Order Comment: Has pt arrived? Y Reason for Type AND Screen/Red Cells: SURGERY TYPE CODE TESTS RESULT OUT OF RANGE REFERENCE UNITS LAB B10.0800 O Normal BLOOD TYPE GEL POSITIVE LAB B100.4000 Normal Antibody NEGATIVE Screen Performed By: #### B101.7450 #### [facility] [address] [place], [place], [address] BEDSIDE GLUCOSE Collected: 09/13/2017 Status: F Source: [place] 10:07 AM [facility] [place] TYPE CODE TESTS RESULT OUT OF REFERENCE UNITS RANGE LAB L501.080 70-110 mg/dL High BEDSIDE GLU 151 Result Comment: MANAGEMENT OF PATIENT CARE PER NURSING PROTOCOL Performed By: #### L501.080 #### [facility] Point of Care [address] [place] [address] PRODUCTS OF CONCEPTION Observed: 09/13/2017 Status: F Source: [place] 12:00 AM [facility] [place] Patient: MIRZA ZIMMERMAN : 1990 (/) Acct Num: [id number] Phys: Tobias WEISS,Zuleyma Unit Num: [id number] Loc: [facility] Specimen: [id number] Received: 09/13/171429 Spec Type: PROD CONC TISSUES TISSUES: Product of conception, NOS GROSS DESCRIPTION Received in fixative is one container labeled with the patient's name and designated products of conception. The specimen consists of multiple pieces of hdz-pink soft tissue that in aggregate measure 3.5 x 4 x 1 cm. tissue is not identified. The entire specimen is submitted in three cassettes. / SJ: malika 09/13/17 TC:5 CPT: 35806 HEADER OPERATION: Dilation and curettage, suction PRE-OP DIAGNOSIS: Missed TISSUE SUBMITTED: Products of conception MICROSCOPIC DESCRIPTION Slides are reviewed. MICROSCOPIC DIAGNOSIS Endometrium, curettage: Chorionic villi, decidualized stroma and trophoblastic cells consistent with products of conception. AM: 09/16/17 Signed [facility] 09/16/17 <signature on file> Performed By: #### PPOC #### [facility] [address] [place], [address] DISCHARGE INSTRUCTION Observed: 09/08/2017 Status: F Source: [place] 1:07 PM [facility] [place] [facility] Medical Records Department [address] [place] [address] Discharge Instruction 09/08/17 1304 MR#: [id number] Acct: [id number] Name: MIRZA ZIMMERMAN Rep #: [id number] : 1990 27 From: Yobani Herron DO PCP: Sunny Wells MD Status: REG ER ED Disposition - Plan for ED Patient: Chief Complaint: Abd Pain Instructions: ED Abdominal Pain Unkn Cause, ED Care Prescriptions: proMETHazine tablet [Phenergan] 25 mg PO Q6H PRN PRN #10 tab PRN Reason: Nausea Referrals: Sunny Wells MD [Primary Care Provider] - Zuleyma Collado MD [STAFF PHYSICIAN] - 3-5 Days What to do if you have Problems For any increased pain, shortness of breath, bleeding, nausea or vomiting, chest pain, or any unexpected problems, contact your Primary Care Provider. Call [facility] ([phone]) or report to the closest Emergency Room. Call 911 if necessary. 09/08/17 1307 <Electronically signed by Yobani Herron DO> Date Yobani Herron DO Cosigner Signature (If Indicated): Date CC: Sunny Wells MD EMERGENCY DEPARTMENT Observed: 09/08/2017 Status: F Source: [place] SUMMARY 1:04 PM [facility] [place] [facility] Medical Records Department [address] [place] [id number] Emergency Department Summary 09/08/17 1301 MR#: [id number] Acct: [id number] Name: MIRZA ZIMMERMAN Rep #: [id number] : 1990 27 From: Yobani Herron DO PCP: Sunny Wells MD Status: REG ER - ER Visit Summary Date of Service: 09/08/17 Chief Complaint: [Abdominal pain] History of Present Illness: The patient is a 27 F [presents the emergency department with abdominal pain that started 3 days ago. Patient describes the pain as upper left abdomen going into her back. Patient's had nausea and vomiting 4 today. Patient denies any fever. Patient's last menstrual period was August 08. Patient denies any diarrhea. Patient denies sick contacts. Medical history includes diabetes. Patient has had cholecystectomy.] Physical Examination: [HEENT-PERRLA, EOMI. Cranial nerves II through XII grossly intact. TMs clear. Mucous membranes moist. No adenopathy. Cardiovascular-regular rate and rhythm without murmur or ectopy Lungs-clear to auscultation, chest wall stable without crepitus or subcu emphysema Abdomen-normoactive bowel sounds, soft patient has some mild tenderness over left upper quadrant. There is no rebound, rigidity, or perineal signs. No CVA tenderness.. Extremities-intact 4, normal range of motion, normal pulses, atraumatic] Test Results: CBC with differential obtained showed a white count of 10.4, hemoglobin 13.8, hematocrit 40, platelets 271. Chemistries unremarkable. LFTs unremarkable. Urinalysis was normal. HCG serum was positive. Patient had a pelvic ultrasound at that showed intrauterine gestational sac at 7 weeks 1 day with yolk sac. There is no pole nor cardiac activity. [] Emergency Department Course and Treatment: Arrival patient was medicated with morphine as well as Phenergan. I discussed case with Dr. Collado whom the patient has seen in the past for her pregnancies. Dr. Collado asked that patient follow- up with her office within the next 3-5 days. [] Treatment Plan: [Patient will follow-up for repeat quant and repeat ultrasound] Disposition: [Discharged to home in stable condition. Patient advised to return if worsening pain, persistent vomiting, fever, or condition should worsen in any way.] Impression: [Abdominal pain-etiology uncertain new diagnosis] This note was generated with [employer] dictation software. It may contain incorrect words, spelling, and punctuation that were not noted in review of the chart prior to signing ED Disposition - Plan for ED Patient: Chief Complaint: Abd Pain Referrals: Sunny Wells MD [Primary Care Provider] - What to do if you have Problems For any increased pain, shortness of breath, bleeding, nausea or vomiting, chest pain, or any unexpected problems, contact your Primary Care Provider. Call [employer] [facility] ([phone]) or report to the closest Emergency Room. Call 911 if necessary. 09/08/17 1304 <Electronically signed by Yobani Herron DO> Date Yobani Herron DO Cosigner Signature (If Indicated): Date CC: Sunny Wells MD TRANSVAGINAL W/PREG US Observed: 09/08/2017 Status: F Source: [place] 10:15 AM [facility] [place] [facility] Imaging Services [address] [place] [address] Transvaginal w/Preg US MR#: [id number] Acct: [id number] Name: MIRZA ZIMMERMAN Rep #: [id number] : 1990 F 27 From: Kip Felipe MD PCP: Sunny Wells MD Status: REG ER Study: Transvaginal w/Preg US Date of Exam: 09/08/17 Exam# [id number] Ordering Dr: Yobani Herron DO STUDY: FIRST TRIMESTER OBSTETRICAL ULTRASOUND REASON FOR EXAM: Female, 27 years old. Left flank pain LMP: August 15, 2017 TECHNIQUE: Transvaginal PRIOR ULTRASOUND: None. FINDINGS: There is visualization of a single gestational sac in a normal intrauterine position. The mean sac diameter (MSD) measures 2.1 cm, indicating an estimated gestational age (EGA) of 7 weeks, 1 days. The gestational sac shape is within normal limits. There is a visualized yolk sac. The yolk sac measures 0.6. The placenta is non-visualized. There is no demonstrated embryo ( pole). The estimated gestation age (EGA) by LMP is 4 weeks, 6 days. The estimated date of delivery (DELFINA) by LMP is May 12, 2018. The estimated gestation age (EGA) by US is 7 weeks, 1 days. The estimated date of delivery (DELFINA) by US is April 26, 2018. The uterus measures 8.9 x 6.8 x 4.4 cm. There is no demonstrated uterine fibroid. The cervix is closed. The right ovary is not visualized. The left ovary measures 3.8 x 3.1 x 2.1 cm. There is 1.6 cm cyst. There is no visualized left adnexal mass or complex lesion. There is no fluid in the cul de sac. US/Transvaginal w/Preg US IMPRESSION: Intrauterine gestational sac at 7 weeks 1 day with yolk sac. There is no pole nor cardiac activity. Electronically Signed: Kip Felipe MD at 12:49 EDT , Service support , CC: Sunny Wells MD; Yobani Herron DO Pl[employer] Grader Cardroom: Signed CBC W/DIFF, AUTOMATED Collected: 09/08/2017 Status: F Source: [place] 9:30 AM [facility] [place] TYPE CODE TESTS RESULT OUT OF RANGE REFERENCE UNITS LAB L100.1000 4.4-11.0 K/mm3 Normal WBC 10.4 LAB L100.1200 4.2-5.4 M/mm3 Normal RBC 4.36 LAB L100.1300 12.0-15.0 g/dl Normal HGB 13.8 LAB L100.1400 37-47 % Normal HCT 39.8 LAB L100.1500 81-99 fL Normal MCV 91.3 LAB L100.1600 27.0-32.0 pg Normal MCH 31.7 LAB L100.1700 32-36 g/gl Normal MCHC 34.7 LAB L100.1810 11.6-14.6 % Normal RDW CV 13.6 LAB L100.1820 35.1-43.9 fl High RDW SD 44.5 LAB L100.1900 150-450 K/mm3 Normal PLT 271 LAB L100.2000 6.2-12.0 fl Normal MPV 9.1 LAB L100.2100 47-70 % Normal NEUT% 61.2 LAB L100.2200 19-41 % Normal LY% 28.9 LAB L100.2300 0-10 % Normal MONO% 7.6 LAB L100.2400 0-5 % Normal EO% 1.6 LAB L100.2500 0-1 % Normal BASO% 0.1 LAB L100.2550 0.0-0.9 % Normal IM GRAN % 0.600 Result Comment: IG% - Immature Granulocytes (promyelocytes, myelocytes and metamyelocytes) > 1% indicates that a LEFT SHIFT is Present. LAB L100.2620 2.0-7.7 X10 3/uL Normal Absolute Neut 6.4 LAB L100.2720 0.83-4.51 X10 3/ul Normal Absolute Lymph 3.01 Performed By: #### L100.0100 #### [facility] [address] [place], [place], [address] COMPREHENSIVE METABOLIC Collected: 09/08/2017 Status: F Source: [facility] 9:30 AM [facility] [place] TYPE CODE TESTS RESULT OUT OF RANGE REFERENCE UNITS LAB L501.0100 74-106 mg/dL High GLU 150 Result Comment: Fasting Glucose result greater than or equal to 126 mg/dL suggests DIABETES MELLITUS per A.D.A. criteria. Please note revised GLUCOSE reference range effective 2017. LAB L501.1000 7-18 mg/dL Low BUN 5 LAB L501.1100 0.55-1.02 mg/dL Normal CREAT,SERUM 0.63 Result Comment: The validity of the calculated GFR AND GFRAA in patients over 70 years has not been determined. Clinical correlation is essential. LAB L501.1110 >60 mL/min Normal EST GFR 122 Result Comment: Non- GFR Calc LAB L501.1115 >60 mL/min Normal EST GFR - AA 148 Result Comment: GFR Calc LAB L501.1255 ml/min Normal Estimated CRCL 132.75 LAB L501.1300 10-20 RATIO Low BUN/CRE 8.0 LAB L501.1500 6.4-8. g/dL 2 T PROT Normal 7.0 LAB L501.1800 3.2-5. g/dL 0 ALB Normal 3.5 LAB L501.1950 2.2-4. g/dL 2 GLOB Normal 3.5 LAB L501.2000 0.9-2. RATIO 4 A/G Normal 1.0 LAB L501.2200 8.5-10 mg/dL Low .1 CA 7.8 LAB L501.4100 15-37 U/L AST Normal 19 LAB L501.4305 45-117 U/L ALK P Normal 76 LAB L501.4405 13-56 U/L ALT Normal 30 Result Comment: Please note revised ALT reference range effective 2017. LAB L501.4600 0.20-1.00 mg/dL High T BILI 1.50 LAB L501.5300 136-145 mmol/L Normal NA 140 LAB L501.5600 3.5-5.1 mmol/L Normal K 3.5 LAB L501.5900 98-107 mmol/L High CL 108 LAB L501.6100 21.0-32.0 mmol/L Low CO2 18.0 LAB L501.6200 5-15 Normal GAP 14 Performed By: #### L500.4050, L501.2450 #### [facility] [address] [place], [address] LIPASE Collected: 09/08/2017 Status: F Source: [place] 9:30 AM [facility] [place] TYPE CODE TESTS RESULT OUT OF RANGE REFERENCE UNITS LAB L501.2450 73-393 U/L Normal LIPASE 103 Performed By: #### L500.4050, L501.2450 #### [facility] [address] [place], [address] ,SERUM,HCG QUALI. Collected: Status: F Source: [place] 09/08/2017 9:30 AM [facility] [place] TYPE CODE TESTS RESULT OUT OF REFERENCE UNITS RANGE LAB L700.6700 =>Qualitative mIU/mL Normal HCG Qual 1168 triggr LAB L700.7000 0-9 Nonpreg Negative High HCGSQUAL POSITIVE Result Comment: TEST is *POSITIVE* Performed By: #### L700.6800 #### [facility] [address] [place], [address] HCG TITER QUANT., Collected: 09/08/2017 Status: F Source: [place]UM 9:30 AM [facility] [place] TYPE CODE TESTS RESULT OUT OF RANGE REFERENCE UNITS LAB L700.8000 <9 non-preg mIU/mL High HCG 1168 QUANT. Performed By: #### L700.8000 #### [facility] [address] [place], [place], [address] URINALYSIS, COMPLETE Collected: 09/08/2017 Status: F Source: [place] 9:20 AM [facility] [place] Order Comment: Has pt arrived? Y How was Urine Obtained? CLEAN CATCH TYPE CODE TESTS RESULT OUT OF RANGE REFERENCE UNITS LAB L400.3000 Yellow COLOR Normal Yellow LAB L400.3050 Clear Normal CLARITY Clear LAB L400.3200 Normal mg/dl Normal GLUCOSE, UR Normal LAB L400.3300 Negative mg/dL Normal BILIRUBIN URINE Negative LAB L400.3400 Negative mg/dl High KETONE UR 150 Result Comment: CRITICAL VALUE *H LAB L400.3465 1.002-1.030 Normal SP.GR. DIPSTX 1.025 LAB L400.3550 5.0 - 8.0 pH Normal UR 6.0 LAB L400.3600 Negative mg/dl High 15 PROT DIPSTX LAB L400.3700 Normal mg/dl Normal UROBILI Normal LAB L400.3750 Negative Normal NITRITE UR Negative LAB L400.3780 Negative /ul High 25 OCCULT BLOOD-UR LAB L400.3800 Negative /ul High 25 LEUK ESTERASE LAB L400.4050 0-5 /hpf Normal WBC 0-5 SEEN LAB L400.4100 0-5 /hpf 0 Normal RBC-UA SEEN LAB L400.4150 5-10 /hpf Normal SQUAM EPI 0-5 SEEN LAB L400.4300 None Seen /hpf 0 Normal BACTERIA SEEN LAB L400.4350 <or=2+ /hpf 0 Normal MUCUS, URINE SEEN Performed By: #### L400.0001 #### [facility] [address] [place], [place], [address] PROGRESS Observed: 08/29/2017 Status: COMPLETED Source: [place] 12:06 PM [facility] REPOSITORY HNO ID: [id number] Author: Jeannette Bill Service: (none) Author Type: Registered Nurse Type: Progress Notes Filed: 11/08/2017 3:12 PM Note Text: PRIMARY CARE COORDINATION FOLLOW-UP NOTE Provider Action/FYI Keep encouraging pt to watch her diet and take meds. Patient identified by name and date of . YES Spoke to patient Summary: Called to inquire how she is doing and how her BSs are running. She is currently away from home but states not higher than 210. She will call with last several days readings when she returns home. Concerns: Pt has not always been compliant with diet and meds so needs close tracking. [employer] plan for next outreach: Will follow up as planned Signature Jeannette Bill RN Ambulatory Postpartum Rn Internal Medicine [facility] August 29, 2017 JUNAID Observed: 08/29/2017 Status: COMPLETED Source: [place] 12:[address] [facility] REPOSITORY Patient Outreach (INTMWS) MIRZA ZIMMERMAN ([id number]) 1990 F Date Time Provider Department 08/29/17 JEANNETTE BUSBY During your visit today, we recorded the following information about you: Jeannette Olmstead RN 11/08/2017 3:12 PM Signed PRIMARY CARE COORDINATION FOLLOW-UP NOTE Provider Action/FYI Keep encouraging pt to watch her diet and take meds. Patient identified by name and date of . YES Spoke to patient Summary: Called to inquire how she is doing and how her BSs are running. She is currently away from home but states not higher than 210. She will call with last several days readings when she returns home. Concerns: Pt has not always been compliant with diet and meds so needs close tracking. [employer] plan for next outreach: Will follow up as planned Signature Jeannette Bill RN Ambulatory Postpartum Rn Internal Medicine [facility] August 29, 2017 Allergies As of Date: 08/29/2017 Noted Allergy Reaction ASPIRIN 09/18/2005 4 - Hives 8 - GI Upset paper tape [Other] 06/26/2005 2 - Rash 7 - Swelling 9 - Itching Comments: Area gets very red also PENICILLINS 05/11/2013 4 - Hives Date Reviewed: 08/03/2017 Reviewed by: Ana Lacey Ma - Fully Assessed Reason for Visit: Postpartum Rn Chronic Care [6114] Cmt: DM2 Prescriptions as of 08/29/2017 Sig: LIRAGLUTIDE 0.6 MG/0.1 ML (18* Inject 1.2 mg subcutaneously * INSULIN GLARGINE (U-100) 100 * Inject 40 Units subcutaneousl* COMPOUNDED PRESCRIPTION One Touch meter kit. LANCETS Test blood sugar(s) 5 times * X BLOOD SUGAR DIAGNOSTIC STRIPS Test blood sugar(s) 5 times d* FAMOTIDINE 20 MG TABLET Take 1 tablet by mouth daily * X PANTOPRAZOLE 40 MG TABLET,DEL* Take 1 tablet by mouth once d* X NORGESTIMATE 0.25 MG-ETHINYL * Take 1 tablet by mouth once d* INSULIN GLARGINE (U-100) 100 * Inject 36 units subcutaneousl* X METFORMIN ER 500 MG TABLET,EX* Take 2 with breakfast and 2 w* ESCITALOPRAM 20 MG TABLET Take 1 tablet by mouth once d* X BLOOD SUGAR DIAGNOSTIC STRIPS Use as directed 4 times daily. ALCOHOL SWABS Use as directed up to 5 times* EMPTY CONTAINER 1 Can twice daily. PEN NEEDLE, DIABETIC 31 GAUGE* One daily with insulin COMPOUNDED PRESCRIPTION 1 Each as needed. Sharps Cont* EMPTY CONTAINER 1 Container as needed (to dis* LANCETS Use as instructed Problem List As Of Date 08/29/2017 Noted Resolved Type 2 diabetes mellitus (HCC) [E11.9] INVALID FOR* More... More... More... Obesity, unspecified [E66.9] INVALID FOR* More... History of flank pain [Z87.898] INVALID FOR*06/21/2014 More... More... More... History of depression [Z86.59] INVALID FOR* More... More... More... More... More... More... More... Depression [F32.9] INVALID FOR* Encounter Status:Closed by JEANNETTE BILL on 11/08/17 PROGRESS Observed: 08/12/2017 Status: COMPLETED Source: [place] 3:23 PM [facility] RE[facility]IT[facility] HNO ID: [id number] Author: Jeannette Bill Service: (none) Author Type: Registered Nurse Type: Progress Notes Filed: 08/12/2017 3:43 PM Note Text: PRIMARY CARE COORDINATION FOLLOW-UP NOTE Provider Action/FYI: Pt has taken 's words of wisdom and advice to heart and has been diligently working on her diet, exercise and BS control. She is running 150-200 for the past week. Patient identified by name and date of . YES Spoke to patient Summary: She has sent me readings on her meter over past couple weeks and is making better choices. On Sun her FBS was 150 and after breakfast was 193. She has started attending [employer]. This morning her BS is 175. Gave strong encouragement and advice. She has just bought her wedding dress and is very excited about her upcoming [employer] . This may be a great incentive for her and with better BSs and weight loss, she may be able to sustain it. Concerns: Appears to have taken advice of Dr Wells and CC at last office visit and has her sugars under MUCH better control. She is trying to eat better and has a membership at [employer] with her fiance. It's important that he become part of the solution as he is grossly overweight as well. Her wedding is in about 10 wks so I think she has added incentive to lose weight and get healthy. She has been looking forward to this wedding for many years and through 4 children already. I think this may be good incentive for her. [employer] plan for next outreach: Will follow up next week she will call or send me BSs. Signature Jeannette Bill cardiopulmonary technologist Postpartum Rn Internal Medicine [place] [facility] August 12, 2017 CNPTOUTREACH Observed: 08/12/2017 Status: COMPLETED Source: [place] 12:[address] [facility] REPOSITORY Patient Outreach (INTMWS) MIRZA ZIMMERMAN ([id number]) 1990 F Date Time Provider Department 08/12/17 JEANNETTE BUSBY During your visit today, we recorded the following information about you: Jeannette Olmstead RN 08/12/2017 3:43 PM Signed PRIMARY CARE COORDINATION FOLLOW-UP NOTE Provider Action/FYI: Pt has taken 's words of wisdom and advice to heart and has been diligently working on her diet, exercise and BS control. She is running 150-200 for the past week. Patient identified by name and date of . YES Spoke to patient Summary: She has sent me readings on her meter over past couple weeks and is making better choices. On Sun her FBS was 150 and after breakfast was 193. She has started attending [employer]. This morning her BS is 175. Gave strong encouragement and advice. She has just bought her wedding dress and is very excited about her upcoming . This may be a great incentive for her and with better BSs and weight loss, she may be able to sustain it. Concerns: Appears to have taken advice of Dr Wells and CC at last office visit and has her sugars under MUCH better control. She is trying to eat better and has a membership at [employer] with her fiance. It's important that he become part of the solution as he is grossly overweight as well. Her wedding is in about 10 wks so I think she has added incentive to lose weight and get healthy. She has been looking forward to this wedding for many years and through 4 children already. I think this may be good incentive for her. [employer] plan for next outreach: Will follow up next week she will call or send me BSs. Signature Jeannette Bill RN Ambulatory Postpartum Rn Internal Medicine [facility] August 12, 2017 Allergies As of Date: 08/12/2017 Noted Allergy Reaction ASPIRIN 09/18/2005 4 - Hives 8 - GI Upset PENICILLINS 05/11/2013 4 - Hives paper tape [Other] 06/26/2005 2 - Rash 7 - Swelling 9 - Itching Comments: Area gets very red also Date Reviewed: 08/03/2017 Reviewed by: Ana Lacey Ma - Fully Assessed Reason for Visit: Postpartum Rn Chronic Care [1842] Prescriptions as of 08/12/2017 Sig: LIRAGLUTIDE 0.6 MG/0.1 ML (18* Inject 1.2 mg subcutaneously * INSULIN GLARGINE (U-100) 100 * Inject 40 Units subcutaneousl* COMPOUNDED PRESCRIPTION One Touch meter kit. BLOOD SUGAR DIAGNOSTIC STRIPS Test blood sugar(s) 5 times d* LANCETS Test blood sugar(s) 5 times * PANTOPRAZOLE 40 MG TABLET,DEL* Take 1 tablet by mouth once d* FAMOTIDINE 20 MG TABLET Take 1 tablet by mouth daily * NORGESTIMATE 0.25 MG-ETHINYL * Take 1 tablet by mouth once d* INSULIN GLARGINE (U-100) 100 * Inject 36 units subcutaneousl* METFORMIN ER 500 MG TABLET,EX* Take 2 with breakfast and 2 w* ESCITALOPRAM 20 MG TABLET Take 1 tablet by mouth once d* BLOOD SUGAR DIAGNOSTIC STRIPS Use as directed 4 times daily. ALCOHOL SWABS Use as directed up to 5 times* EMPTY CONTAINER 1 Can twice daily. PEN NEEDLE, DIABETIC 31 GAUGE* One daily with insulin COMPOUNDED PRESCRIPTION 1 Each as needed. Sharps Cont* EMPTY CONTAINER 1 Container as needed (to dis* LANCETS Use as instructed Problem List As Of Date 08/12/2017 Noted Resolved Type 2 diabetes mellitus (HCC) [E11.9] INVALID FOR* More... More... More... Obesity, unspecified [E66.9] INVALID FOR* More... History of flank pain [Z87.898] INVALID FOR*06/21/2014 More... More... More... History of depression [Z86.59] INVALID FOR* More... More... More... More... More... More... More... Depression [F32.9] INVALID FOR* Encounter Status:Closed by JEANNETTE BILL on 08/12/17 PROGRESS Observed: 08/03/2017 Status: COMPLETED Source: [place] 1:11 PM [facility] REPOSITORY HNO ID: [id number] Author: Jeannette Bill Service: (none) Author Type: Registered Nurse Type: Progress Notes Filed: 08/03/2017 1:15 PM Note Text: PRIMARY CARE COORDINATION IN OFFICE VISIT WITH PCP Patient has been identified by name and date of . PCP Assessment/Plan: Reviewed PCP plan with patient using [employer] Pt will start Victoza- it is now apparently covered by her insurance and she will start today. PCC Plan of Care: Patient concerns: Pt considering gastric bypass surgery- her friend has one.Discussed the ramifications, etc Patient goals: To get sugars under control. She has gotten so used to sugars in 200s as OK and needs to tighten control. PCC Interventions: Review diet, emphasize meds, getting more exercise. Next Office Visit: 2 month F/U with Dr Koko Bashir (3rd) freezer laboratory technician F/U Plan For Next Call: Next week Jeannette Bill cardiopulmonary technologist Postpartum Rn Internal Medicine [facility] August 03, 2017 PROGRESS Observed: 08/03/2017 Status: COMPLETED Source: [place] 12:02 PM [facility] [place] REPOSITORY HNO ID: [id number] Author: Sunny Wells Service: (none) Author Type: Physician Type: Progress Notes Filed: 08/03/2017 12:40 PM Note Text: Reason for Visit Patient presents with: blood sugars Mirza Zimmerman is a 27 year old female who presents here today for Above Complaints.. Health Maintenance DILATED RETINAL EXAM HPV VACCINE(3 of 3 - Female 3 Dose Series) PAP EVERY 3 YEARS (21-30 YEAR OLDS) DIABETIC FOOT EXAM HBA1C HPI Her sugars are in the 400's past week, she is back up to 361 this morning She is taking the basaglar, 30 units and the metformin. Since early July her sugars are higher than ever, her brother was sick for 3 weeks in jul and she [place] in the ic[place] for the past few months. She ate a lot of fast food and was extremely stressed at that time. No problem-specific Assessment AND Plan notes found for this encounter. PAST MEDICAL HISTORY Diagnosis Date - Anemia WITH 2ND - Asthma since 14 years old, inhaler PRN - Complex ovarian cyst - Needs follow up imaging 06/09/2013 06/09/2013 An ultrasound was done 06/04/2013 that revealed a 6w5d fetus with DELFINA of 01/24/14. There is fluid seen adjacent to the gestastional sac possible subchorionic hemorrhage. the left ovary is within normal limits but the right ovary contains a 3.8 x 3 x 3.3 cm moderately complex cyst. TKRN 01/15/2014 - Confirmed 9 x 7 x 2.5 cm multi-loculated cyst at the time of . Needs outpatient follow up via TVUS. - Congenital hip deformity - Diabetes, gestational insulin controlled - Family history of defects 06/09/2013 06/09/2013Patient's mother born with spina bifida. Patient's brother born with a hole in his heart. Patient has another brother that was born with Down syndrome. Patient and her brother born with a congenital hip deformity. Patient has had multiple corrective surgeries for the hip deformity.TKRN - Family history of Down syndrome 06/21/2014 Brother with DS - Family history of spina bifida 06/21/2014 Mom with Spina bifida in wheelchair - Gall stones 2007 Gall bladder removed - History of asthma 06/09/2013 06/09/2013Patient has a history of asthma. She uses an albuterol inhaler when necessary. TKRN - History of 06/09/2013 06/09/2013 Pt had 3 previous C sections. - History of kidney stones - Nausea/vomiting in 06/09/2013 06/09/2013She states she has nausea . Advised patient to call/come in if she has persistent vomiting or if her blood sugars were less than 70. TKRN - Ovarian cyst during 07/21/2014 07/21/14: see NT ultrasound: Right ovarian cyst 6cm - Pain in joint, pelvic region and thigh 01/10/2006 - Pancreatitis - Patient requested diagnostic testing 06/09/2013 06/09/2013 Patient desires early screening in with sequential testing. TKRN - depression - Prior macrosomia, antepartum 06/21/2014 - Short interval between pregnancies complicating , antepartum 06/09/2013 06/09/2013Shguillermo delivered her previous child August 14, 2012.TKRN - Type 2 diabetes mellitus (HCC) 05/22/2013 - Type 2 diabetes mellitus complicating , antepartum 05/28/2013 06/09/2013Shguillermo has a history of diabetes diagnosed 4 years ago. She was unaware that she was until she went into labor with her first . With her second she started insulin during the second trimester. She was referred to Dr. Tejada at [facility] for poorly controlled diabetes on metformin alone. She has since started insulin and has an appointment today with Dr. Guevara for followup. She has been keeping track of her blood sugars and presents with a journal today and these blood sugars are copy off and given to Dr. Guevara for his review. I have discussed with the patient the importance of good control of her blood sugars during and keeping a blood sugar log for review by the Doctor. She is reminded that she is to send her blood sugars in weekly to Dr. Guevara and she is to call sooner than a week if she has persistently high, greater the 180, or low blood sugars, less than 70. She is provided with a blood sugar log today. She has not had a diabetic foot or eye exam rece PAST SURGICAL HISTORY Procedure Laterality Date - DELIVERY ONLY , low transverse x3 - DELIVERY ONLY 01/19/15 , low transverse - IANDD ABSC; SMPL OR SGL 05/2013 cyst on left upper chest - LAPAROSCOPIC CHOLEYCYSTECTOMY Cholecystectomy, lap - PAST SURGICAL HISTORY OF tubes in ears per Dr Crockett at [facility] - PAST SURGICAL HISTORY OF Tonsils and Adenoids removed per Dr Crockett at [facility] - PAST SURGICAL HISTORY OF [address] Marroquin at [facility] - REMOVAL OF OVARY/TUBE(S) 01/19/15 Salpingo-oophorectomy, right ovarian mass FAMILY HISTORY Problem Relation Age of Onset - Diabetes Mother - Hypertension Mother - spina bifida [OTHER] Mother - Heart Father - Hypertension Father - Cancer Maternal Grandmother - Alcohol/Drug Maternal Grandmother - Heart Paternal Grandmother - Aneurysm Paternal Grandmother - Stroke Brother - Down Syndrome [OTHER] Brother - autism [OTHER] Brother step brother - seizures and cerebral palsy also - Open family hx of Neural Tube Defect [OTHER] Brother Social History Substance Use Topics - Smoking status: Never Smoker - Smokeless tobacco: Never Used Comment: mom's fiance smokes outside - Alcohol use No Past medical history, appointments, medications, allergies reviewed. Pertinent Lab/Diagnostic Studies are reviewed and discussed today Current Outpatient Prescriptions: - insulin glargine (BASAGLAR KWIKPEN) 100 unit/mL (3 mL) inpn - COMPOUNDED PRESCRIPTION - blood sugar diagnostic (ONETOUCH ULTRA TEST) test strip - Lancets (ONETOUCH ULTRASOFT LANCETS) lancets - pantoprazole DR (PROTONIX) 40 mg tablet - famotidine (PEPCID) 20 mg tablet - metFORMIN ER (GLUCOPHAGE XR) 500 mg 24 hr tablet - escitalopram oxalate (LEXAPRO) 20 mg tablet - blood sugar diagnostic (FREESTYLE LITE STRIPS) test strip - Alcohol Swabs padm - Oral Medication Containers (SHARPS CONTAINER) misc - insulin needles, DISPOSABLE, (PEN NEEDLE) 31 gauge x 5/16 ndle - COMPOUNDED PRESCRIPTION - Oral Medication Containers (BD SHARPS PRIVATE BANKER) misc - Lancets (ONE TOUCH SURESOFT LANCING DEV) lancets - dulaglutide (TRULICITY) 0.75 mg/0.5 mL pnij - norgestimate 0.25 mg-ethinyl estradiol 35 mcg (SPRINTEC) 0.25-35 mg-mcg per tablet - insulin glargine (LANTUS SOLOSTAR) 100 unit/mL (3 mL) inpn Review of Systems CONSTITUTIONAL: No fevers, chills night sweats, unintended weight loss CARDIOVASCULAR: No chest pain, dyspnea, palpitations, orthopnea, PND, ankle edema. PULM: No dyspnea, unexplained cough. GI: No dysphagia/odynophagia, problematic reflux, constipation, diarrhea, changes in stool habits, hematochezia, melena. : No new urinary complaints, including dysuria, gross hematuria or pyuria. NEURO: No new balance problems, peripheral weakness/paresthesias or numbness of concern. Physical Exam BP 112/76 Pulse 100 Temp 36.8 ?C (98.3 ?F) (Temporal Artery) Resp 12 Wt 132.9 kg (293 lb) BMI 45.89 kg/m2 General appearance: Well appearing, alert, in no acute distress, well nourished. Skin: Skin color, texture, turgor normal, no suspicious rashes or lesions Head: Normocephalic, no masses, lesions, tenderness or abnormalities Eyes: Anicteric sclera. Pupils are equally round and reactive to light. Extraocular movements are intact. Lungs: Lungs clear to auscultation. No wheezing, rhonchi, rales Heart: RRR without murmur, gallop, or rubs. Extremities: No deformities, edema, skin discoloration, clubbing or cyanosis. Good capillary refill. ASSESSMENT/PLAN: 1. Type 2 diabetes mellitus without complication, without long-term current use of insulin (HCC) - ICD9: 250.00, ICD10: E11.9 (primary diagnosis) UnControlled discussed that she should start the victoza and diet and exercise, sending her to nutritonist and increasing the basaglar to 40 units, will call me in the next 2 weeks with new blood sugar levels. - Continue current medications - URINALYSIS WITH MICROSCOPIC - LIRAGLUTIDE 0.6 MG/0.1 ML (18 MG/3 ML) SUBCUTANEOUS PEN INJECTOR Spent more than 25 mins along with Awa our co ordinator to help her understand her disease. 2. Uncontrolled type 2 diabetes mellitus with complication, with long-term current use of insulin (HCC) - ICD9: 250.82, V58.67, ICD10: E11.8, E11.65, Z79.4 SUNNY WELLS MD CNOV Observed: 08/03/2017 Status: COMPLETED Source: [place] 11:[address] [facility] REPOSITORY Office Visit (INTMWS) AYESHA ZIMMERMANADELEMOHIT Selam ([id number]) 1990 F Date Time Provider Department 08/03/17 11:40 AM SUNNY WELLS INTMWS During your visit today, we recorded the following information about you: Temperature Pulse Respiration Blood pressure 98.3 degrees 100/minute 12/minute 112/76 Weight 132.9 kg SUNNY WELLS MD 08/03/2017 12:40 PM Signed Reason for Visit Patient presents with: blood sugars Elodiaoziel Selam Elsie is a 27 year old female who presents here today for Above Complaints.. Health Maintenance DILATED RETINAL EXAM HPV VACCINE(3 of 3 - Female 3 Dose Series) PAP EVERY 3 YEARS (21-30 YEAR OLDS) DIABETIC FOOT EXAM HBA1C HPI Her sugars are in the 400's past week, she is back up to 361 this morning She is taking the basaglar, 30 units and the metformin. Since early July her sugars are higher than ever, her brother was sick for 3 weeks in [place] and [place] the past few months. She ate a lot of fast food and was extremely stressed at that time. No problem-specific Assessment ANDamp; Plan notes found for this encounter. PAST MEDICAL HISTORY Diagnosis Date - Anemia WITH 2ND - Asthma since 14 years old, inhaler PRN - Complex ovarian cyst - Needs follow up imaging 06/09/2013 06/09/2013 An ultrasound was done 06/04/2013 that revealed a 6w5d fetus with DELFINA of 01/24/14. There is fluid seen adjacent to the gestastional sac possible subchorionic hemorrhage. the left ovary is within normal limits but the right ovary contains a 3.8 x 3 x 3.3 cm moderately complex cyst. TKRN 01/15/2014 - Confirmed 9 x 7 x 2.5 cm multi-loculated cyst at the time of . Needs outpatient follow up via TVUS. - Congenital hip deformity - Diabetes, gestational insulin controlled - Family history of defects 06/09/2013 06/09/2013Patient's mother born with spina bifida. Patient's brother born with a hole in his heart. Patient has another brother that was born with Down syndrome. Patient and her brother born with a congenital hip deformity. Patient has had multiple corrective surgeries for the hip deformity.TKRN - Family history of Down syndrome 06/21/2014 Brother with DS - Family history of spina bifida 06/21/2014 Mom with Spina bifida in wheelchair - Gall stones 2007 Gall bladder removed - History of asthma 06/09/2013 06/09/2013Patient has a history of asthma. She uses an albuterol inhaler when necessary. TKRN - History of 06/09/2013 06/09/2013 Pt had 3 previous C sections. - History of kidney stones - Nausea/vomiting in 06/09/2013 06/09/2013She states she has nausea . Advised patient to call/come in if she has persistent vomiting or if her blood sugars were less than 70. TKRN - Ovarian cyst during 07/21/2014 07/21/14: see NT ultrasound: Right ovarian cyst 6cm - Pain in joint, pelvic region and thigh 01/10/2006 - Pancreatitis - Patient requested diagnostic testing 06/09/2013 06/09/2013 Patient desires early screening in with sequential testing. TKRN - depression - Prior macrosomia, antepartum 06/21/2014 - Short interval between pregnancies complicating , antepartum 06/09/2013 06/09/2013Nikki delivered her previous child August 14, 2012.TKRN - Type 2 diabetes mellitus (HCC) 05/22/2013 - Type 2 diabetes mellitus complicating , antepartum 05/28/2013 06/09/2013Nikki has a history of diabetes diagnosed 4 years ago. She was unaware that she was until she went into labor with her first . With her second she started insulin during the second trimester. She was referred to Dr. Tejada at [facility] for poorly controlled diabetes on metformin alone. She has since started insulin and has an appointment today with Dr. Guevara for followup. She has been keeping track of her blood sugars and presents with a journal today and these blood sugars are copy off and given to Dr. Guevara for his review. I have discussed with the patient the importance of good control of her blood sugars during and keeping a blood sugar log for review by the Doctor. She is reminded that she is to send her blood sugars in weekly to Dr. Guevara and she is to call sooner than a week if she has persistently high, greater the 180, or low blood sugars, less than 70. She is provided with a blood sugar log today. She has not had a diabetic foot or eye exam rece PAST SURGICAL HISTORY Procedure Laterality Date - DELIVERY ONLY , low transverse x3 - DELIVERY ONLY 01/19/15 , low transverse - IANDamp;D ABSC; SMPL OR SGL 05/2013 cyst on left upper chest - LAPAROSCOPIC CHOLEYCYSTECTOMY Cholecystectomy, lap - PAST SURGICAL HISTORY OF tubes in ears per Dr Crockett at [facility] - PAST SURGICAL HISTORY OF Tonsils and Adenoids removed per Dr Crockett at [facility] - PAST SURGICAL HISTORY OF [address] Marroquin at [facility] - REMOVAL OF OVARY/TUBE(S) 01/19/15 Salpingo-oophorectomy, right ovarian mass FAMILY HISTORY Problem Relation Age of Onset - Diabetes Mother - Hypertension Mother - spina bifida [OTHER] Mother - Heart Father - Hypertension Father - Cancer Maternal Grandmother - Alcohol/Drug Maternal Grandmother - Heart Paternal Grandmother - Aneurysm Paternal Grandmother - Stroke Brother - Down Syndrome [OTHER] Brother - autism [OTHER] Brother step brother - seizures and cerebral palsy also - Open family hx of Neural Tube Defect [OTHER] Brother Social History Substance Use Topics - Smoking status: Never Smoker - Smokeless tobacco: Never Used Comment: mom's fiance smokes outside - Alcohol use No Past medical history, appointments, medications, allergies reviewed. Pertinent Lab/Diagnostic Studies are reviewed and discussed today Current Outpatient Prescriptions: - insulin glargine (BASAGLAR KWIKPEN) 100 unit/mL (3 mL) inpn - COMPOUNDED PRESCRIPTION - blood sugar diagnostic (ONETOUCH ULTRA TEST) test strip - Lancets (ONETOUCH ULTRASOFT LANCETS) lancets - pantoprazole DR (PROTONIX) 40 mg tablet - famotidine (PEPCID) 20 mg tablet - metFORMIN ER (GLUCOPHAGE XR) 500 mg 24 hr tablet - escitalopram oxalate (LEXAPRO) 20 mg tablet - blood sugar diagnostic (FREESTYLE LITE STRIPS) test strip - Alcohol Swabs padm - Oral Medication Containers (SHARPS CONTAINER) misc - insulin needles, DISPOSABLE, (PEN NEEDLE) 31 gauge x 5/16ANDquot; ndle - COMPOUNDED PRESCRIPTION - Oral Medication Containers (BD SHARPS PRIVATE BANKER) misc - Lancets (ONE TOUCH SURESOFT LANCING DEV) lancets - dulaglutide (TRULICITY) 0.75 mg/0.5 mL pnij - norgestimate 0.25 mg-ethinyl estradiol 35 mcg (SPRINTEC) 0.25-35 mg-mcg per tablet - insulin glargine (LANTUS SOLOSTAR) 100 unit/mL (3 mL) inpn Review of Systems CONSTITUTIONAL: No fevers, chills night sweats, unintended weight loss CARDIOVASCULAR: No chest pain, dyspnea, palpitations, orthopnea, PND, ankle edema. PULM: No dyspnea, unexplained cough. GI: No dysphagia/odynophagia, problematic reflux, constipation, diarrhea, changes in stool habits, hematochezia, melena. : No new urinary complaints, including dysuria, gross hematuria or pyuria. NEURO: No new balance problems, peripheral weakness/paresthesias or numbness of concern. Physical Exam BP 112/76 Pulse 100 Temp 36.8 ?C (98.3 ?F) (Temporal Artery) Resp 12 Wt 132.9 kg (293 lb) BMI 45.89 kg/m2 General appearance: Well appearing, alert, in no acute distress, well nourished. Skin: Skin color, texture, turgor normal, no suspicious rashes or lesions Head: Normocephalic, no masses, lesions, tenderness or abnormalities Eyes: Anicteric sclera. Pupils are equally round and reactive to light. Extraocular movements are intact. Lungs: Lungs clear to auscultation. No wheezing, rhonchi, rales Heart: RRR without murmur, gallop, or rubs. Extremities: No deformities, edema, skin discoloration, clubbing or cyanosis. Good capillary refill. ASSESSMENT/PLAN: 1. Type 2 diabetes mellitus without complication, without long-term current use of insulin (HCC) - ICD9: 250.00, ICD10: E11.9 (primary diagnosis) UnControlled discussed that she should start the victoza and diet and exercise, sending her to nutritonist and increasing the basaglar to 40 units, will call me in the next 2 weeks with new blood sugar levels. - Continue current medications - URINALYSIS WITH MICROSCOPIC - LIRAGLUTIDE 0.6 MG/0.1 ML (18 MG/3 ML) SUBCUTANEOUS PEN INJECTOR Spent more than 25 mins along with Awa our co ordinator to help her understand her disease. 2. Uncontrolled type 2 diabetes mellitus with complication, with long-term current use of insulin (HCC) - ICD9: 250.82, V58.67, ICD10: E11.8, E11.65, Z79.4 SUNNY WELLS MD Referring Provider: SELF [[id number]] Allergies As of Date: 08/03/2017 Noted Allergy Reaction ASPIRIN 09/18/2005 4 - Hives 8 - GI Upset PENICILLINS 05/11/2013 4 - Hives paper tape [Other] 06/26/2005 2 - Rash 7 - Swelling 9 - Itching Comments: Area gets very red also Date Reviewed: 08/03/2017 Reviewed by: Ana Lacey Ma - Fully Assessed Reason for Visit: blood sugars [Other] Primary Visit Diagnosis:Type 2 diabetes mellitus without complication, without long-term current use of insulin (HCC) [E11.9] Other Visit Diagnoses:Uncontrolled type 2 diabetes mellitus with complication, with long-term current use of insulin (HCC) [E11.8, E11.65, Z79.4] Morbid obesity ([facility]) [E66.01] Order(s):URINALYSIS WITH MICROSCOPIC [SQUAWMIC] Order #: [id number] FUTURE liraglutide (VICTOZA 2-WILLIAM) 0.6 mg/0.1 mL (18 mg/3 mL) pnijInject 1.2 mg subcutaneously once daily.Disp: 4 PackageRfl: 1 insulin glargine (BASAGLAR KWIKPEN U-100 INSULIN) 100 unit/mL (3 mL) inpnInject 40 Units subcutaneously daily at bedtime.Disp: 10 PenRfl: 3 CONSULT [facility] [[id number]] Order #: [id number]: 1 CONSULT TO NUTRITION THERAPY [9020] Order #: [id number]: 1 Prescriptions as of 08/03/2017 Sig: INSULIN GLARGINE (U-100) 100 * Inject 40 Units subcutaneousl* COMPOUNDED PRESCRIPTION One Touch meter kit. BLOOD SUGAR DIAGNOSTIC STRIPS Test blood sugar(s) 5 times d* LANCETS Test blood sugar(s) 5 times * PANTOPRAZOLE 40 MG TABLET,DEL* Take 1 tablet by mouth once d* FAMOTIDINE 20 MG TABLET Take 1 tablet by mouth daily * METFORMIN ER 500 MG TABLET,EX* Take 2 with breakfast and 2 w* ESCITALOPRAM 20 MG TABLET Take 1 tablet by mouth once d* BLOOD SUGAR DIAGNOSTIC STRIPS Use as directed 4 times daily. ALCOHOL SWABS Use as directed up to 5 times* EMPTY CONTAINER 1 Can twice daily. PEN NEEDLE, DIABETIC 31 GAUGE* One daily with insulin COMPOUNDED PRESCRIPTION 1 Each as needed. Sharps Cont* EMPTY CONTAINER 1 Container as needed (to dis* LANCETS Use as instructed LIRAGLUTIDE 0.6 MG/0.1 ML (18* Inject 1.2 mg subcutaneously * NORGESTIMATE 0.25 MG-ETHINYL * Take 1 tablet by mouth once d* INSULIN GLARGINE (U-100) 100 * Inject 36 units subcutaneousl* Medication notes this encounter DULAGLUTIDE 0.75 MG/0.5 ML SUBCUTANEOUS PEN INJECTOR >> Ana Lacey Ma 08/03/2017 11:44 AM >> ANA LACEY MA Aug 03, 2017 11:44 AM D/c NORGESTIMATE 0.25 MG-ETHINYL ESTRADIOL 35 MCG TABLET >> Ana Lacey Ma 08/03/2017 11:44 AM >> ANA LACEY MA Sat Aug 03, 2017 11:44 AM D/c INSULIN GLARGINE (U-100) 100 UNIT/ML (3 ML) SUBCUTANEOUS PEN >> Ana Lacey Ma 08/03/2017 11:44 AM >> ANA LACEY MA Sat Aug 03, 2017 11:44 AM D/c Problem List As Of Date 08/03/2017 Noted Resolved Type 2 diabetes mellitus (HCC) [E11.9] INVALID FOR* More... More... More... Obesity, unspecified [E66.9] INVALID FOR* More... History of flank pain [Z87.898] INVALID FOR*06/21/2014 More... More... More... History of depression [Z86.59] INVALID FOR* More... More... More... More... More... More... More... Depression [F32.9] INVALID FOR* Prescriptions ordered this encounter Disp Refills Start End LIRAGLUTIDE 0.6 MG/0.1 ML (18 MG/3 M* 4 Pa* 1 08/03/2017 Route: SUBCUTANEOUS Sig: Inject 1.2 mg subcutaneously once daily. INSULIN GLARGINE (U-100) 100 UNIT/ML* 10 P* 3 08/03/2017 Route: SUBCUTANEOUS Sig: Inject 40 Units subcutaneously daily at bedtime. Medications Discontinued During This Encounter dulaglutide (TRULICITY) 0.75 mg/0.5 * 4 Pen 3 05/01/2017 08/03/2017 Route: SUBCUTANEOUS Sig: Inject 0.5 mL subcutaneously once each week. Inject dose once per week. Discard Pen After Disc: Reason for discontinue is not on file. insulin glargine (BASAGLAR KWIKPEN) * 10 P* 3 04/29/2017 08/03/2017 Route: SUBCUTANEOUS Sig: Inject 36 Units subcutaneously daily at bedtime. Indications: Diabetes Mellitus Disc: Reason for discontinue is not on file. Encounter Status:Closed by SUNNY WELLS MD on 08/03/17 CNPTOUTREACH Observed: 08/03/2017 Status: COMPLETED Source: [place] 12:[address] [facility] REPOSITORY Patient Outreach (INTMWS) MIRZA ZIMMERMAN ([id number]) 1990 F Date Time Provider Department 08/03/17 JEANNETTE BUSBY During your visit today, we recorded the following information about you: Jeannette Olmstead RN 08/03/2017 1:15 PM Signed PRIMARY CARE COORDINATION IN OFFICE VISIT WITH PCP Patient has been identified by name and date of . PCP Assessment/Plan: Reviewed PCP plan with patient using [employer] Pt will start Victoza- it is now apparently covered by her insurance and she will start today. PCC Plan of Care: Patient concerns: Pt considering gastric bypass surgery- her friend has one.Discussed the ramifications, etc Patient goals: To get sugars under control. She has gotten so used to sugars in 200s as ANDquot;OKANDquot; and needs to tighten control. PCC Interventions: Review diet, emphasize meds, getting more exercise. Next Office Visit: 2 month F/U with Dr Koko Bashir (3rd) freezer laboratory technician F/U Plan For Next Call: Next week Jeannette Bill cardiopulmonary technologist Postpartum Rn Internal Medicine [facility] August 03, 2017 Allergies As of Date: 08/03/2017 Noted Allergy Reaction ASPIRIN 09/18/2005 4 - Hives 8 - GI Upset PENICILLINS 05/11/2013 4 - Hives paper tape [Other] 06/26/2005 2 - Rash 7 - Swelling 9 - Itching Comments: Area gets very red also Date Reviewed: 08/03/2017 Reviewed by: Ana Lacey Ma - Fully Assessed Reason for Visit: Postpartum Rn Chronic Care [1305] Cmt: DM uncontrolled Prescriptions as of 08/03/2017 Sig: LIRAGLUTIDE 0.6 MG/0.1 ML (18* Inject 1.2 mg subcutaneously * INSULIN GLARGINE (U-100) 100 * Inject 40 Units subcutaneousl* COMPOUNDED PRESCRIPTION One Touch meter kit. BLOOD SUGAR DIAGNOSTIC STRIPS Test blood sugar(s) 5 times d* LANCETS Test blood sugar(s) 5 times * PANTOPRAZOLE 40 MG TABLET,DEL* Take 1 tablet by mouth once d* FAMOTIDINE 20 MG TABLET Take 1 tablet by mouth daily * NORGESTIMATE 0.25 MG-ETHINYL * Take 1 tablet by mouth once d* INSULIN GLARGINE (U-100) 100 * Inject 36 units subcutaneousl* METFORMIN ER 500 MG TABLET,EX* Take 2 with breakfast and 2 w* ESCITALOPRAM 20 MG TABLET Take 1 tablet by mouth once d* BLOOD SUGAR DIAGNOSTIC STRIPS Use as directed 4 times daily. ALCOHOL SWABS Use as directed up to 5 times* EMPTY CONTAINER 1 Can twice daily. PEN NEEDLE, DIABETIC 31 GAUGE* One daily with insulin COMPOUNDED PRESCRIPTION 1 Each as needed. Sharps Cont* EMPTY CONTAINER 1 Container as needed (to dis* LANCETS Use as instructed Problem List As Of Date 08/03/2017 Noted Resolved Type 2 diabetes mellitus (HCC) [E11.9] INVALID FOR* More... More... More... Obesity, unspecified [E66.9] INVALID FOR* More... History of flank pain [Z87.898] INVALID FOR*06/21/2014 More... More... More... History of depression [Z86.59] INVALID FOR* More... More... More... More... More... More... More... Depression [F32.9] INVALID FOR* Encounter Status:Closed by JEANNETTE BILL on 08/03/17 EMERGENCY DEPARTMENT Observed: 08/01/2017 Status: F Source: [place] 5:11 PM [facility] Medical Records Department [address] [place] [address] Emergency Department Summary 08/01/17 1654 MR#: [id number] Acct: [id number] Name: MIRZA ZIMMERMAN Rep #: [id number] : 1990 27 From: Palmer Mccoy DO PCP: Sunny Wells MD Status: DEP ER - ER Visit Summary Date of Service: 08/01/17 Chief Complaint: []Nausea and vomiting History of Present Illness: The patient is a 27 F [] complaining of nausea and vomiting beginning 2 days ago. Reports mild diffuse abdominal discomfort. Eyes hematemesis or blood in stool. Reports she is a diabetic with uncontrolled blood sugars. She reports she takes metformin. She reports her blood sugars been running in the 400s. Denies weight loss or weight gain. Denies increased thirst or urinary frequency. Physical Examination: [] Afebrile, vital signs stable. Morbidly obese female no acute distress. Cardiovascular exam is regular rate and rhythm. Lungs are clear to auscultation. Abdomen is soft and nontender. Test Results: [] CBC, BMP are normal with exception of a glucose of 235. LFTs normal. Chest x-ray negative. Emergency Department Course and Treatment: [] Given intravenous fluids and Phenergan. On serial exam she had improvement of symptoms. She was given a prescription for Phenergan. Treatment Plan: [] Discharge, stable. Follow-up with primary care physician. Disposition: [] Discharge, stable. Impression: [] Nausea and vomiting History of diabetes This note was generated with [employer] dictation software. It may contain incorrect words, spelling, and punctuation that were not noted in review of the chart prior to signing ED Disposition - Plan for ED Patient: Chief Complaint: Nausea/Vomiting Referrals: Sunny Wells MD [Primary Care Provider] - What to do if you have Problems For any increased pain, shortness of breath, bleeding, nausea or vomiting, chest pain, or any unexpected problems, contact your Primary Care Provider. Call [facility] ([phone]) or report to the closest Emergency Room. Call 911 if necessary. 08/01/17 8231 <Electronically signed by Palmer Mccoy DO> Date Palmer Mccoy DO Cosigner Signature (If Indicated): Date CC: Sunny Wells MD DISCHARGE INSTRUCTION Observed: 08/01/2017 Status: F Source: [place] 5:03 PM [facility] [place] [facility] Medical Records Department [address] [place] [address] Discharge Instruction 08/01/171701 MR#: [id number] Acct: [id number] Name: MIRZA ZIMMERMAN Rep #: [id number] : 1990 27 From: Palmer Mccoy DO PCP: Sunyn Wells MD Status: REG ER ED Disposition - Plan for ED Patient: Disposition: Home or Assisted Living Chief Complaint: Nausea/Vomiting Instructions: ED Nausea Vomiting Prescriptions: ProMETHAzine [Phenergan] 25 mg PO Q4H PRN PRN #20 tab PRN Reason: Nausea Referrals: Sunny Wells MD [Primary Care Provider] - What to do if you have Problems For any increased pain, shortness of breath, bleeding, nausea or vomiting, chest pain, or any unexpected problems, contact your Primary Care Provider. Call [facility] ([phone]) or report to the closest Emergency Room. Call 911 if necessary. 08/01/171702 <Electronically signed by Palmer Mccoy DO> Date Palmer Mccoy DO Cosigner Signature (If Indicated): Date CC: Sunny Wells MD CBC W/DIFF, AUTOMATED Collected: 08/01/2017 Status: F Source: [place] 3:10 PM [facility] TYPE CODE TESTS RESULT OUT OF RANGE REFERENCE UNITS LAB L100.1000 4.4-11.0 K/mm3 Normal WBC 7.8 LAB L100.1200 4.2-5.4 M/mm3 Normal RBC 4.66 LAB L100.1300 12.0-15.0 g/dl Normal HGB 14.8 LAB L100.1400 37-47 % Normal HCT 41.8 LAB L100.1500 81-99 fL Normal MCV 89.7 LAB L100.1600 27.0-32.0 pg Normal MCH 31.8 LAB L100.1700 32-36 g/gl Normal MCHC 35.4 LAB L100.1810 11.6-14.6 % Normal RDW CV 13.5 LAB L100.1820 35.1-43.9 fl Normal RDW SD 43.4 LAB L100.1900 150-450 K/mm3 Normal PLT 236 LAB L100.2000 6.2-12.0 fl Normal MPV 9.6 LAB L100.2100 47-70 % Normal NEUT% 69.4 LAB L100.2200 19-41 % Normal LY% 19.9 LAB L100.2300 0-10 % Normal MONO% 9.1 LAB L100.2400 0-5 % Normal EO% 1.1 LAB L100.2500 0-1 % Normal BASO% 0.1 LAB L100.2550 0.0-0.9 % Normal IM GRAN % 0.400 Result Comment: IG% - Immature Granulocytes (promyelocytes, myelocytes and metamyelocytes) > 1% indicates that a LEFT SHIFT is Present. LAB L100.2620 2.0-7.7 X10 3/uL Normal Absolute Neut 5.4 LAB L100.2720 0.83-4.51 X10 3/ul Normal Absolute Lymph 1.56 Performed By: #### L100.0100 #### [facility] [address] [place], [address] COMPREHENSIVE METABOLIC Collected: 08/01/2017 Status: F Source: [facility] 3:10 PM [facility] TYPE CODE TESTS RESULT OUT OF RANGE REFERENCE UNITS LAB L501.0100 74-106 mg/dL High GLU 235 Result Comment: Glucose result greater than or equal to 200 mg/dL suggests DIABETES MELLITUS per A.D.A. criteria. Please note revised GLUCOSE reference range effective 2017. LAB L501.1000 7-18 mg/dL Normal BUN 10 LAB L501.1100 0.55-1.02 mg/dL Low CREAT,SERUM 0.50 Result Comment: The validity of the calculated GFR AND GFRAA in patients over 70 years has not been determined. Clinical correlation is essential. LAB L501.1110 >60 mL/min Normal EST GFR 157 Result Comment: Non- GFR Calc LAB L501.1115 >60 mL/min Normal EST GFR - AA 191 Result Comment: GFR Calc LAB L501.1255 ml/min Normal Estimated CRCL 167.26 LAB L501.1300 10-20 RATIO BUN/CRE Normal 19.8 LAB L501.1500 6.4-8. g/dL 2 T PROT Normal 7.1 LAB L501.1800 3.2-5. g/dL 0 ALB Normal 3.6 LAB L501.1950 2.2-4. g/dL 2 GLOB Normal 3.5 LAB L501.2000 0.9-2. RATIO 4 A/G Normal 1.0 LAB L501.2200 8.5-10 mg/dL Low .1 CA 8.4 LAB L501.4100 15-37 U/L Low AST 13 LAB L501.4305 45-117 U/L ALK P Normal 102 LAB L501.4405 13-56 U/L ALT Normal 22 Result Comment: Please note revised ALT reference range effective 2017. LAB L501.4600 0.20-1.00 mg/dL High T BILI 1.50 LAB L501.5300 136-145 mmol/L Normal NA 136 LAB L501.5600 3.5-5.1 mmol/L Normal K 3.7 LAB L501.5900 98-107 mmol/L Normal CL 103 LAB L501.6100 21.0-32.0 mmol/L Normal CO2 21.0 LAB L501.6200 5-15 Normal GAP 12 Performed By: #### L500.4050 #### [facility] [address] [place], [place], [id number] ,SERUM,HCG QUALI. Collected: Status: F Source: [place] 08/01/2017 3:10 PM [facility] [place] TYPE CODE TESTS RESULT OUT OF REFERENCE UNITS RANGE LAB L700.7000 0-9 Nonpreg Negative Normal HCGSQUAL NEGATIVE LAB L700.6700 =>Qualitative mIU/mL Normal HCG Qual < 1 triggr Performed By: #### L700.6800 #### [facility] [address] [facility] [place], [address] ACETONE SERUM Collected: 08/01/2017 Status: F Source: [place] 3:10 PM [facility] [place] TYPE CODE TESTS RESULT OUT OF RANGE REFERENCE UNITS LAB L501.6900 NEG Normal ACETONE SERUM NEGATIVE Performed By: #### L501.6900 #### [facility] [address] [place], [address] CHEST PA AND LATERAL Observed: 08/01/2017 Status: F Source: [place] 2:53 PM [facility] [place] Imaging Services [address] [place] [address] Chest PA and Lateral MR#: [id number] Acct: [id number] Name: MIRZA ZIMMERMAN Rep #: [id number] : 1990 F 27 From: Claude Gómez DO PCP: Sunny Wells MD Status: REG ER Study: Chest PA and Lateral Date of Exam: 08/01/17 Exam# [id number] Ordering Dr: Palmer Mccoy DO STUDY: X-RAY CHEST REASON FOR EXAM: Female, 27 years old. Cough. TECHNIQUE: PA and lateral views of the chest. COMPARISON: Chest, June 26, 2016. FINDINGS: The lungs are clear and expanded. There is no demonstrated pleural abnormality. Normal size heart. Normal mediastinum and sarath. Normal visualized pulmonary arteries. Normal visualized aortic arch and descending thoracic aorta. Normal visualized thoracic spine. Normal visualized ribs, clavicles, and shoulders. There is no demonstrated abnormality of the visualized soft tissue structures of the upper abdomen. RAD/Chest PA and Lateral IMPRESSION: No acute cardiopulmonary disease or interval change. Electronically Signed: Claude Gómez DO at 15:46 EST Tel [phone], Service support , CC: Sunny Wells MD; Palmer Mccoy DO Plastic Card Grader Cardroom: Signed PROGRESS Observed: 07/31/2017 Status: COMPLETED Source: [place] 8:[address] [facility] REPOSITORY HNO ID: [id number] Author: Jeannette Bill Service: (none) Author Type: Registered Nurse Type: Progress Notes Filed: 08/30/2017 11:59 AM Note Text: PRIMARY CARE COORDINATION FOLLOW-UP NOTE Provider Action/FYI Pt started out w/BS 497 this AM and contacted me stating she was doing everything. By 4pm it is down to 291 Patient identified by name and date of . YES Spoke to patient Summary: Pt with uncontrolled BSs contacted me this AM upset that her sugar was 497. She takes Glucophage and Basaglar 36 u HS. I encouraged her to drink lots of water, broth and eat low carb meals. By lunch it was 380 and at 4pm it was 291. Enc her to continue. She agreed to appt Sat (3 days) with PCP. She has not shown for multtple appts over past 6 months. She historically has not been very compliant with her diet and has stopped meds for long periods when she is out,etc. She stated she is looking into Bariatric surgery. Concerns: She heard back from bariatric Dept she contacted and she has to follow documented diet for 9 months before they will consider her. I also instructed that her A1c will need to be controlled as well. Not sure how good a candidate she will be as her fiance is also grossly obese and they tend to eat lg and unhealthy meals. [employer] plan for next outreach: Will follow up with in next few days Signature Jeannette Bill cardiopulmonary technologist Postpartum Rn Internal Medicine [facility] July 31, 2017 CNPTOUTREACH Observed: 07/31/2017 Status: COMPLETED Source: [place] 12:[address] [facility] REPOSITORY Patient Outreach (INTMWS) MIRZA ZIMMERMAN ([id number]) 1990 F Date Time Provider Department 07/31/17 JEANNETTE BUSBY During your visit today, we recorded the following information about you: Jeannette Olmstead RN 08/30/2017 11:59 AM Signed PRIMARY CARE COORDINATION FOLLOW-UP NOTE Provider Action/FYI Pt started out w/BS 497 this AM and contacted me stating she was ANDquot;doing everythingANDquot;. By 4pm it is down to 291 Patient identified by name and date of . YES Spoke to patient Summary: Pt with uncontrolled BSs contacted me this AM upset that her sugar was 497. She takes Glucophage and Basaglar 36 u HS. I encouraged her to drink lots of water, broth and eat low carb meals. By lunch it was 380 and at 4pm it was 291. Enc her to continue. She agreed to appt Sat (3 days) with PCP. She has not [facility] over past 6 months. She historically has not been very compliant with her diet and has stopped meds for long periods when she is out,etc. She stated she is looking into Bariatric surgery. Concerns: She heard back from bariatric Dept she contacted and she has to follow documented diet for 9 months before they will consider her. I also instructed that her A1c will need to be controlled as well. Not sure how good a candidate she will be as her fiance is also grossly obese and they tend to eat lg and unhealthy meals. [employer] plan for next outreach: Will follow up with in next few days Signature Jeannette Bill cardiopulmonary technologist Postpartum Rn Internal Medicine [facility] July 31, 2017 Allergies As of Date: 07/31/2017 Noted Allergy Reaction ASPIRIN 09/18/2005 4 - Hives 8 - GI Upset PENICILLINS 05/11/2013 4 - Hives paper tape [Other] 06/26/2005 2 - Rash 7 - Swelling 9 - Itching Comments: Area gets very red also Date Reviewed: 02/25/2017 Reviewed by: Dorys (Jose Garcia - Fully Assessed Reason for Visit: Postpartum Rn Chronic Care [4562] Cmt: Diabetes Prescriptions as of 07/31/2017 Sig: X DULAGLUTIDE 0.75 MG/0.5 ML OLSON* Inject 0.5 mL subcutaneously * X INSULIN GLARGINE (U-100) 100 * Inject 36 Units subcutaneousl* COMPOUNDED PRESCRIPTION One Touch meter kit. BLOOD SUGAR DIAGNOSTIC STRIPS Test blood sugar(s) 5 times d* LANCETS Test blood sugar(s) 5 times * PANTOPRAZOLE 40 MG TABLET,DEL* Take 1 tablet by mouth once d* FAMOTIDINE 20 MG TABLET Take 1 tablet by mouth daily * NORGESTIMATE 0.25 MG-ETHINYL * Take 1 tablet by mouth once d* INSULIN GLARGINE (U-100) 100 * Inject 36 units subcutaneousl* METFORMIN ER 500 MG TABLET,EX* Take 2 with breakfast and 2 w* ESCITALOPRAM 20 MG TABLET Take 1 tablet by mouth once d* BLOOD SUGAR DIAGNOSTIC STRIPS Use as directed 4 times daily. ALCOHOL SWABS Use as directed up to 5 times* EMPTY CONTAINER 1 Can twice daily. PEN NEEDLE, DIABETIC 31 GAUGE* One daily with insulin COMPOUNDED PRESCRIPTION 1 Each as needed. Sharps Cont* EMPTY CONTAINER 1 Container as needed (to dis* LANCETS Use as instructed Problem List As Of Date 07/31/2017 Noted Resolved Type 2 diabetes mellitus (HCC) [E11.9] INVALID FOR* More... More... More... Obesity, unspecified [E66.9] INVALID FOR* More... History of flank pain [Z87.898] INVALID FOR*06/21/2014 More... More... More... History of depression [Z86.59] INVALID FOR* More... More... More... More... More... More... More... Depression [F32.9] INVALID FOR* Encounter Status:Closed by JEANNETTE BILL on 08/30/17 EMERGENCY DEPARTMENT Observed: 07/24/2017 Status: F Source: [place] SUMMARY 5:27 PM [facility] [place] [facility] Medical Records Department [address] [place] [address] Emergency Department Summary 07/24/17 0943 MR#: [id number] Acct: [id number] Name: MIRZA ZIMMERMAN Rep #: [id number] : 1990 27 From: Bernie Morales MD PCP: Sunny Wells MD Status: DEP ER - ER Visit Summary Date of Service: 07/24/17 Chief Complaint: Headache History of Present Illness: The patient is a 27 F reports mild generalized headache yesterday with some nausea. Progressively worsened throughout the day. Today her right face feels swollen and painful. She denies any recent head injury. There is no recent URI symptoms. She does report nausea, vomiting, and light sensitivity. Patient denies history of migraines. Physical Examination: Vital signs are grossly unremarkable. Patient is lying in a darkened room. She is in no acute distress and appears nontoxic. Head and neck examination reveals mild right upper eyelid edema. She has no meningismus. Heart is regular rate and rhythm. Lung sounds are clear. Abdomen is soft nontender. Neuro exam is significant only for right face feeling painful with light palpation. Test Results: CT head is normal. CBC and chemistry studies are significant only for glucose of 333. test is negative. Emergency Department Course and Treatment: Patient was treated Toradol, Compazine, Benadryl, and IV fluids. On repeat evaluation headache is resolved. At this time I am unsure of the etiology of her right eyelid swelling. Eye itself is not injected. She has no sign of cellulitis. There is no sign of sinus infection or dental infection. She will continue to closely monitor the symptoms. Treatment Plan: [] Disposition: Discharge Impression: Migraine, improved This note was generated with [employer] dictation software. It may contain incorrect words, spelling, and punctuation that were not noted in review of the chart prior to signing ED Disposition - Plan for ED Patient: Disposition: Home or Assisted Living Chief Complaint: Headache Instructions: ED Headache Migraine Referrals: Sunny Wells MD [Primary Care Provider] - 3-5 Days if not improving What to do if you have Problems For any increased pain, shortness of breath, bleeding, nausea or vomiting, chest pain, or any unexpected problems, contact your Primary Care Provider. Call [facility] ([phone]) or report to the closest Emergency Room. Call 911 if necessary. 07/24/17 1727 <Electronically signed by Bernie Morales MD> Date Bernie Morales MD Cosigner Signature (If Indicated): Date CC: Sunny Wells MD DISCHARGE INSTRUCTION Observed: 07/24/2017 Status: F Source: [place] 12:14 PM [facility] [place] [facility] Medical Records Department [address] [place] [address] Discharge Instruction 07/24/17 1213 MR#: [id number] Acct: [id number] Name: MIRZA ZIMMERMAN Rep #: [id number] : 1990 27 From: Bernie Morales MD PCP: Sunny Wells MD Status: REG ER ED Disposition - Plan for ED Patient: Disposition: Home or Assisted Living Chief Complaint: Headache Instructions: ED Headache Migraine Referrals: Sunny Wells MD [Primary Care Provider] - 3-5 Days if not improving What to do if you have Problems For any increased pain, shortness of breath, bleeding, nausea or vomiting, chest pain, or any unexpected problems, contact your Primary Care Provider. Call [facility] ([phone]) or report to the closest Emergency Room. Call 911 if necessary. 07/24/17 1214 <Electronically signed by Bernie Morales MD> Date Bernie Morales MD Cosigner Signature (If Indicated): Date CC: Sunny Wells MD CBC W/DIFF, AUTOMATED Collected: 07/24/2017 Status: F Source: [place] 10:15 AM [facility] [place] TYPE CODE TESTS RESULT OUT OF RANGE REFERENCE UNITS LAB L100.1000 4.4-11.0 K/mm3 Normal WBC 6.4 LAB L100.1200 4.2-5.4 M/mm3 Normal RBC 4.31 LAB L100.1300 12.0-15.0 g/dl Normal HGB 13.8 LAB L100.1400 37-47 % Normal HCT 39.0 LAB L100.1500 81-99 fL Normal MCV 90.5 LAB L100.1600 27.0-32.0 pg Normal MCH 32.0 LAB L100.1700 32-36 g/gl Normal MCHC 35.4 LAB L100.1810 11.6-14.6 % Normal RDW CV 13.2 LAB L100.1820 35.1-43.9 fl Normal RDW SD 43.0 LAB L100.1900 150-450 K/mm3 Normal PLT 251 LAB L100.2000 6.2-12.0 fl Normal MPV 9.3 LAB L100.2100 47-70 % Normal NEUT% 50.0 LAB L100.2200 19-41 % Normal LY% 39.4 LAB L100.2300 0-10 % Normal MONO% 8.7 LAB L100.2400 0-5 % Normal EO% 1.3 LAB L100.2500 0-1 % Normal BASO% 0.3 LAB L100.2550 0.0-0.9 % Normal IM GRAN % 0.300 Result Comment: IG% - Immature Granulocytes (promyelocytes, myelocytes and metamyelocytes) > 1% indicates that a LEFT SHIFT is Present. LAB L100.2620 2.0-7.7 X10 3/uL Normal Absolute Neut 3.2 LAB L100.2720 0.83-4.51 X10 3/ul Normal Absolute Lymph 2.50 Performed By: #### L100.0100 #### [facility] [place], [address] BASIC METABOLIC Collected: 07/24/2017 Status: F Source: [place] PROFILE ([facility]) 10:15 AM [facility] [place] TYPE CODE TESTS RESULT OUT OF RANGE REFERENCE UNITS LAB L501.0100 74-106 mg/dL High GLU 333 Result Comment: Glucose result greater than or equal to 200 mg/dL suggests DIABETES MELLITUS per A.D.A. criteria. Please note revised GLUCOSE reference range effective 2017. LAB L501.1000 7-18 mg/dL Normal BUN 10 LAB L501.1100 0.55-1.02 mg/dL Normal CREAT,SERUM 0.61 Result Comment: The validity of the calculated GFR AND GFRAA in patients over 70 years has not been determined. Clinical correlation is essential. LAB L501.1110 >60 mL/min Normal EST GFR 127 Result Comment: Non- GFR Calc LAB L501.1115 >60 mL/min Normal EST GFR - AA 154 Result Comment: GFR Calc LAB L501.1255 ml/min Normal Estimated CRCL 137.10 LAB L501.1300 10-20 RATIO BUN/CRE Normal 16.4 LAB L501.2200 8.5-10 mg/dL .1 CA Normal 8.9 LAB L501.5300 136-14 mmol/L 5 NA Normal 137 LAB L501.5600 3.5-5. mmol/L 1 K Normal 3.8 LAB L501.5900 98-107 mmol/L CL Normal 101 LAB L501.6100 21.0-3 mmol/L 2.0 CO2 Normal 25.0 LAB L501.6200 5-15 GAP Normal 11 Performed By: #### L500.2500 #### [facility] [address] [facility] [place], [place], [address] ,SERUM,HCG QUALI. Collected: Status: F Source: [place] 07/24/2017 10:15 AM [facility] TYPE CODE TESTS RESULT OUT OF REFERENCE UNITS RANGE LAB L700.7000 0-9 Nonpreg Negative Normal HCGSQUAL NEGATIVE LAB L700.6700 =>Qualitative mIU/mL Normal HCG Qual < 1 triggr Performed By: #### L700.6800 #### [facility] [address] [facility] [place], [place], [address] BRAIN/HEAD WITHOUT Observed: 07/24/2017 Status: F Source: [place] CONTRAST 9:41 AM [facility] [place] Imaging Services [address] [place] [address] Brain/Head without Contrast MR#: [id number] Acct: [id number] Name: MIRZA ZIMMERMAN [place] Rep #: [id number] : 1990 F 27 From: Antonio Syed MD PCP: Sunny Wells MD Status: REG ER Study: Brain/Head without Contrast Date of Exam: 07/24/17 Exam# [id number] Ordering Dr: Bernie Morales MD STUDY: CT BRAIN WITHOUT CONTRAST REASON FOR EXAM: Female, 27 years old. Headaches. RADIATION DOSAGE (If Supplied By Facility): CTDIvol = ( 60.81 ) mGy, DLP = ( 1044.28 ) mGycm TECHNIQUE: Transaxial CT imaging of the brain was performed without administration of intravenous contrast material. Individualized dose optimization techniques were used for this CT. COMPARISON: 08/28/11 FINDINGS: Normal soft tissue structures. Normal calvarium. Normal size ventricles and extra-axial spaces for the patient's age. Normal white matter tracts of the cerebral hemispheres. Normal basal ganglia and thalami. Normal brainstem. Normal cerebellum. There is no intracranial hemorrhage. There are no findings of an acute ischemic infarction. Normal visualized paranasal sinuses. CT/Brain/Head without Contrast IMPRESSION: Normal unenhanced CT scan of the brain. Electronically Signed: Antonio Syed MD at 11:29 EST , Service support , CC: Sunny Wells MD; Bernie Morales MD Plastic Card Grader Cardroom: Signed ALLERGIES ALLERGIES DATE TYPE / CODE NAME / CODE REACTION SEVERITY SOURCE 06/13/2018 Drug Penicillins/F001 Rash Unknown [place] Allergy/839842743( 759782(RXNORM) [facility] Hospital Repository 06/13/2018 Drug aspirin/[id number] Rash Unknown [place] Allergy/468270410( 87(RXNORM) [facility] SN[facility]) Hospital Repository 06/13/2018 Drug ketorolac/I92235 Other Unknown [place] Allergy/396703818( 4812(RXNORM) [facility] SN[facility]) Hospital Repository 05/13/2018 Miscellaneous PAPER TAPE Other Unknown [place] Allergy/527180690( [facility] SN[facility]) Hospital Repository 04/14/2018 DRUG TRAMADOL OTHER: JAYMIE Mccann INGREDI/[id number]( [facility] Main SNOMED [facility]) [place] [facility] 05/11/2013 Drug PENICILLINS HIVES [facility] Class/815421699([facility] Main OMED [facility]) [place] [facility] 09/18/2005 DRUG ASPIRIN HIVES [place] INGREDI/008897569( Clinic Main SNOMED [facility]) [place] [facility] 06/26/2005 Miscellaneous OTHER RASH [place] Allergy/164030602( Clinic Main SNOMED [facility]) [place] [facility] ENCOUNTERS ENCOUNTERS ADMIT/DISCHARGE ACCOUNT ADMITTING ENCOUNTER LOCATION SOURCE NUMBER CLASS 06/13/2018/06/13/19 [id number] Ambulatory BMSBuilding:[facility] [facility] Repository 06/10/2018/06/10/19 [id number] Ambulatory [address] Main [place] Repository 06/10/2018/06/11/19 [id number] Ambulatory [address] Main [place] Repository 06/04/2018/06/10/19 [id number] Ambulatory [address] Main [place] Rep[place] 06/02/2018/06/02/20 [id number] Ambulatory [address] Main [place] Repository 05/28/2018/05/28/20 [id number] NIG[place], Ambulatory [address] Other [place] Repository 05/23/2018/05/23/20 [id number] Ambulatory [address] [place] Repository 05/22/2018/05/29/20 [id number] Ambulatory [address] [place] Rep[place] 05/21/2018/05/21/20 [id number] Ambulatory [address] [place] Repository 05/21/2018/05/21/20 [id number] Ambulatory [address] [place] Repository 05/21/2018/05/21/20 [id number] Ambulatory [address] [place] Repository 05/21/2018/05/23/20 [id number] Ambulatory [address] [place] Repository 05/13/2018/05/13/20 [id number] Emergency Wiliamsherrill Swain [address] [place] [address] ing:ED Repository 04/26/2018/04/29/20 [id number] Ambulatory [address] [place] Repository 04/16/2018/04/17/20 [id number] Ambulatory [address] [place] Repository 04/14/2018/04/14/20 [id number] Ambulatory [address] [place] Repository 04/14/2018/04/15/20 [id number] Ambulatory [address] [place] Repository 04/14/2018/04/14/20 [id number] Ambulatory [address] [place] Repository 03/12/2018/03/13/20 [id number] Ambulatory [address] [place] Repository 03/11/2018/03/11/20 [id number] Ambulatory [address] [place] Repository 03/08/2018/03/08/20 [id number] Emergency [facility] ing:ED Repository 03/06/2018/03/06/20 [id number] ALBERT LANDA Ambulatory [address] [place] Repository 03/04/2018/03/04/20 [id number] Ambulatory [address] [place] Repository 02/21/2018/02/22/20 [id number] Emergency [place] [facility] ing:ED Repository 02/17/2018/02/18/20 [id number] Ambulatory [address] [place] 01/28/2018/01/29/20 [id number] Emergency [place] [facility] ing:ED Repository 01/13/2018/02/01/20 [id number] Ambulatory [address] [place] Repository 01/07/2018/01/09/20 [id number] Ambulatory [address] [place] Repository 01/06/2018/01/07/20 [id number] Emergency [facility] ing:ED Repository 01/06/2018/01/08/20 [id number] Ambulatory [address] [place] Repository 01/02/2018/01/04/20 [id number] Ambulatory [address] [place] Repository 11/19/2017/11/20/19 [id number] Emergency [facility] ing:ED Repository 11/12/2017/11/13/19 [id number] Ambulatory [address] [place] Repository 11/11/2017/11/12/19 [id number] Ambulatory [address] [place] Repository 11/11/2017 [id number] Ambulatory [facility] [place] Rep[place] 11/11/2017/11/13/19 [id number] Ambulatory [address] [place] Repository 10/13/2017/10/16/19 [id number] Ambulatory [address] Repository 09/20/2017 [id number] Ambulatory BMSBuilding:Lc Swain [facility] Repository 09/19/2017/09/20/19 [id number] Ambulatory [address] Hospital ing:[facility] Repository 09/19/2017 [id number] Ambulatory BMSBuilding:Lc Swain MS.CF.[facility] Repository 09/19/2017 [id number] Ambulatory [facility] Hospital ing:OPUS Repository 09/18/2017/09/19/19 [id number] Ambulatory BMSBuilding:Lc Swain 18 [facility] Repository 09/14/2017 [id number] Ambulatory BMSBuilding:Lc Swain MS.CF.[facility] Repository 09/13/2017/09/14/19 [id number] Ambulatory [address] Hospital ing:[facility] Repository 09/13/2017 [id number] Ambulatory BMSBuilding:Lc Swain MS.CF.[facility] Repository 09/12/2017/09/13/19 [id number] Ambulatory BMSBuilding:Lc Swain 18 [facility] Repository 09/08/2017/09/09/19 [id number] Emergency [address] Hospital ing:ED Repository 08/03/2017/08/06/19 [id number] Ambulatory [address] Repository 08/01/2017/08/02/19 [id number] Emergency [address] Hospital ing:ED Repository 07/24/2017/07/24/19 [id number] Emergency [address] Hospital ing:ED Repository PAYERS PAYERS ENCOUNTER GUARANTOR PAYER SUBSCRIBER SOURCE 06/13/2018 MIRZA Doss Primary MIRZA Swain [id number] Insurance:[facility] ELVISB: [facility] Number: [id number] [place] [id number] Repository [address]Ktv: (540) Date:2018-05-30P O [phone] () [address]ATTN: [place] [address]QW: 06/13/2018 Secondary NOT GIVENUNK [place] Insurance:SELF PAY [facility] Number: Effective Repository Date:2018-06-11 05/13/2018 AUDRIONNA N Primary AUDRIONNA N [place] [id number] Insurance:CARESOURCEP TUCKERDOB: Community [facility]CHARD oly Number: [id number] [place], [place] [id number] Repository [address]Lqc: (330) Date:2018-05-13P O [phone] () [address]ATTN: [place] [address]MG: 05/13/2018 Secondary NOT GIVENUNK [place] Insurance:SELF PAY [facility] Number: Effective Repository Date:2018-05-13 03/08/2018 AUDRIONNA N Primary AUDRIONNA N Alliance [id number] Insurance:CARESOURCEP TUCKERDOB: [facility]ARD [facility] Number: [id number] [place], [place] [id number] Repository [address]Hdu: (330) Date:2018-03-08P O [phone] () [address]ATTN: [place] [address]NN: 03/08/2018 Secondary NOT GIVENUNK [place] Insurance:SELF PAY [facility] Number: Effective Repository Date:2018-03-08 02/21/2018 AUDRIONNA N Primary AUDRIONNA N Alliance [id number] Insurance:CARESOURCEP TUCKERDOB: [facility]ARD [facility] Number: [id number] [place], [place] [id number] Repository [address]Bby: (330) Date:2018-02-21P O [phone] () [address]ATTN: [place] [address]KV: 02/21/2018 Secondary NOT GIVENUNK [place] Insurance:SELF PAY [facility] Number: Effective Repository Date:2018-02-21 01/28/2018 AUDRIONNA N Primary AUDRIONNA N [place] [id number] Insurance:CARESOURCEP TUCKERDOB: [facility]ARD [facility] Number: [id number] [place], [place] [id number] Repository [address]Wlp: (330) Date:2018-01-28P O [phone] () [address]ATTN: [place] [address]UA: 01/28/2018 Secondary NOT GIVENUNK [place] Insurance:SELF PAY [facility] Number: Effective Repository Date:2018-01-28 01/06/2018 AUDRIONNA N Primary AUDRIONNA N [place] [id number] Insurance:CARESOURCEP TUCKERDOB: [facility] Number: [id number] [place], [place] [id number] Repository [address]Fso: (330) Date:2018-01-06P O [phone] () [address]ATTN: [place] [address]YD: 01/06/2018 Secondary NOT GIVENUNK Alliance Insurance:SELF PAY [facility] Number: Effective Repository Date:2018-01-06 11/19/2017 AUDRIONNA N Primary AUDRIONNA N [place] [id number] Insurance:CARESOURCEP TUCKERDOB: [facility] Number: [id number] [place], [place] [id number] Repository [address]Nul: (330) Date:2017-11-19P O [phone] () [address]ATTN: [place] [address]VA: 11/19/2017 Secondary NOT GIVENUNK [place] Insurance:SELF PAY [facility] Number: Effective Repository Date:2017-11-19 09/20/2017 AUDRIONNA N Primary AUDRIONNA N [place] [id number] Insurance:CARESOURCEP STOCKMANDOB: [facility] Number: [id number] [place], [place] [id number] Repository [address]Mlr: (330) Date:2017-09-19P O [phone] () [address]ATTN: [place] [address]PG: 09/20/2017 Secondary NOT GIVENUNK [facility] Insurance:SELF PAY [facility] Number: Effective Repository Date:2017-09-20 09/19/2017 AUDRIONNA N Primary AUDRIONNA N [place] [id number] Insurance:CARESOURCEP STOCKMANDOB: [facility] Number: [id number] [place], [place] [id number] Repository [address]Ltk: (330) Date:2017-09-19P O [phone] () [address]ATTN: [place] [address]QR: 09/19/2017 Secondary NOT GIVENUNK [place] Insurance:SELF PAY [facility] Number: Effective Repository Date:2017-09-19 09/19/2017 AUDRIONNA N Primary AUDRIONNA N Alliance [id number] Insurance:CARESOURCEP STOCKMANDOB: [facility] Number: [id number] [place], [place] [id number] Repository [address]Whw: (330) Date:2017-09-19P O [phone] () [address]ATTN: [place] [address]YK: 09/19/2017 Secondary NOT GIVENUNK [place] Insurance:SELF PAY [facility] Number: Effective Repository Date:2017-09-19 09/19/2017 AUDRIONNA N Primary AUDRIONNA N [facility] [id number] Insurance:CARESOURCEP STOCKMANDOB[facility] Number: [id number] [place], [place] [id number] Repository [address]Etc: (330) Date:2017-09-18P O [phone] () [address]ATTN: [place] [address]OM: 09/19/2017 Secondary NOT GIVENUNK Alliance Insurance:SELF PAY [facility] Number: Effective Repository Date:2017-09-18 09/18/2017 AUDRIONNA N Primary AUDRIONNA N [facility] [id number] Insurance:CARESOURCEP STOCKMANDOB: [facility] Number: [id number] [place], [place] [id number] Repository [address]Njm: (330) Date:2017-09-18 O [phone] () [address]ATTN: [place]S [place] [address]LV: 09/18/2017 Secondary NOT GIVENUNK [place] Insurance:SELF PAY [facility] Number: Effective Repository Date:2017-09-18 09/14/2017 AUDRIONNA N Primary AUDRIONNA N [place] [id number] Insurance:CARESOURCEP STOCKMANDOB: [facility] Number: [id number] [place], [place] [id number] Repository [address]Vka: (330) Date:2017-09-12 O [phone] () [address]ATTN: [place] [address]VJ: 09/14/2017 Secondary NOT GIVENUNK Alliance Insurance:SELF PAY [facility] Number: Effective Repository Date:2017-09-14 09/13/2017 AUDRIONNA N Primary AUDRIONNA N Alliance [id number] Insurance:CARESOURCEP STOCKMANDOB: [facility] Number: [id number] [place], [place] [id number] Repository [address]Wqy: (330) Date:2017-09-12 O [phone] () [address]ATTN: [place] [address]GN: 09/13/2017 Secondary NOT GIVENUNK Alliance Insurance:SELF PAY [facility] Number: Effective Repository Date:2017-09-12 09/13/2017 AUDRIONNA N Primary AUDRIONNA N [facility] [id number] Insurance:CARESOURCEP STOCKMANDOB: [facility] Number: [id number] [place], [place] [id number] Repository [address]Jao: (330) Date:2017-09-12 O [phone] () [address]ATTN: [place] [address]ZW: 09/13/2017 Secondary NOT GIVENUNK [place] Insurance:SELF PAY [facility] Number: Effective Repository Date:2017-09-13 09/12/2017 AUDRIONNA N Primary AUDRIONNA N Alliance [id number] Insurance:CARESOURCEP STOCKMANDOB: [facility] Number: [id number] [place], [place] [id number] Repository 429[address]Vfx: (330) Date:2017-09-04P O [phone] () [address]ATTN: [place] [address]HS: 09/12/2017 Secondary NOT GIVENUNK Alliance Insurance:SELF PAY [facility] Number: Effective Repository Date:2017-09-12 09/08/2017 AUDRIONNA N Primary AUDRIONNA N [facility] [id number] Insurance:CARESOURCEP STOCKMANDOB: [facility] Number: [id number] [place], [place] [id number] Repository [address]Kfx: (330) Date:2017-09-08P O [phone] () [address]ATTN: [place] [address]XX: 09/08/2017 Secondary NOT GIVENUNK [facility] Insurance:SELF PAY [facility] Number: Effective Repository Date:2017-09-08 08/01/2017 AUDRIONNA N Primary AUDRIONNA N [place] [id number] Insurance:CARESOURCEP STOCKMANDOB: [facility] Number: [id number] [place], [place] [id number] Repository 55[address]Rly: (330) Date:2017-08-01P O [phone] () [address]ATTN: [place] [address]HL: 08/01/2017 Secondary NOT GIVENUNK [place] Insurance:SELF PAY [facility]: Effective Repository Date:2017-08-01 07/24/2017 AUDRIONNA N Primary AUDRIONNA N [facility] [id number] Insurance:CARESOURCEP STEFANMANDOB: [facility] Number: [id number] [place], [place] [id number] Repository [address]Bbz: (330) Date:2017-07-24P O [phone] () [address]ATTN: [place] [address]DL: 07/24/2017 Secondary NOT GIVENUNK [facility] Insurance:SELF PAY [facility] Number: Effective Repository Date:2017-07-24
== END 2018-05-13 11:25 | disposition home or self-care (01) ==
LOC: ED 09:48
PROVIDERS: Emergency Provider Emergency Medicine; Family Provider Internal Medicine; PCP Internal Medicine
DX: R11.2 Nausea with vomiting, unspecified (principal); R10.9 Unspecified abdominal pain; E11.9 Type 2 diabetes mellitus without complications; Z90.49 Acquired absence of other specified parts of digestive tract; Z79.4 Long term (current) use of insulin; Z79.84 Long term (current) use of oral hypoglycemic drugs
CPT/HCPCS: 80048; 81001; 84703; 85025; 96361; 96374; 96375; 99283; J7030; J2405

== ENCOUNTER 2018-07-17 13:35 | Emergency (ER) | payer MEDICAID, SELFPAY ==
[2018-06-13 09:26] VITALS: BMI 44.1
[2018-07-17 13:35] VITALS: BP 116/95; PULSE 127; RESP 22; TEMP 36.4; O2SAT 100; BMI 43.4
--- NOTE | 2018-07-17 14:57 | RAD_ITS ---
STUDY: X-RAY - RIGHT HIP REASON FOR EXAM: Female, 28 years old. Pain in her mobility. Recent hip replacement. TECHNIQUE: Comparison is made with prior study dated January 28, 2013. views of the hip. COMPARISON: None. FINDINGS: The patient is status post right total hip replacement. Normal visualized superior and inferior pubic rami and ischial tuberosities. Postoperative soft tissue changes. RAD/HIP, UNI W/ Pelvis 2-3 Views IMPRESSION: Status post right total hip replacement. There is no evidence of fracture or dislocation. Postoperative soft tissue changes. Electronically Signed: Jamison Panchal MD at 15:42 EST , Service support ,
--- NOTE | 2018-07-17 14:58 | ED.DCSUM_ITS ---
- ER Visit Summary Date of Service: 07/17/18 Chief Complaint: right hip pain History of Present Illness: The patient is a 28 F with recent hip replacement on July 11 who presents for severe right hip pain. Patient has been taking oxycodone, Tylenol and Toradol for pain. She states yesterday it became more severe and was poorly controlled. She called the surgeon who told her to take 2 oxycodone at once. She presents because that still is not controlling her pain. She denies any fever, shortness of breath, chest pain, dizziness or lightheadedness or any other complaints. Patient states she has not been out of bed much since the surgery and is not tried to move the hip much. She is supposed to start physical therapy tomorrow. She is on Lovenox injections daily for DVT prophylaxis. She has underlying history of hip dysplasia and has had multiple surgeries on the right hip. Physical Examination: Patient is afebrile and hemodynamically stable. Patient is sobbing and complaining of pain. Examination of the right hip shows bandaging from surgery in place, clean dry and intact. Tenderness diffusely on the right hip. No deformity noted. Exam is limited secondary to body habitus. Distal sensation and motor function are intact. DP pulses 2+. Symmetric size of the calves. Lungs are clear to auscultation bilaterally. Heart tachycardic in rate and regular rhythm. Remainder of exam unremarkable. Test Results: Abnormal Lab Results 07/17/18 07/17/18 07/17/18 15:15 15:15 15:15 WBC 8.9 RBC 3.07 L Hgb 9.5 L Hct 28.8 L MCV 93.8 MCH 30.9 MCHC 33.0 RDW 14.2 RDW Differential 47.8 H Plt Count 316 MPV 8.8 Immature Gran % (Auto) 0.700 Neut % (Auto) 62.6 Lymph % (Auto) 26.0 Clark % (Auto) 8.1 Eos % (Auto) 2.5 Baso % (Auto) 0.1 Absolute Neuts (auto) 5.6 Absolute Lymphs (auto) 2.30 Total Counted Not Reportable PT 14.0 INR 1.1 APTT 35.3 Sodium 140 Potassium 3.6 Chloride 105 Carbon Dioxide 24.0 Anion Gap 11 BUN 7 Creatinine 0.56 Estim Creat Clear Calc 148.04 Est GFR (MDRD) Af Amer 168 Est GFR (MDRD) Non-Af 139 BUN/Creatinine Ratio 12.5 Glucose 175 H Calcium 8.5 Clinical Impression(s) from Imaging Studies Hip/Pelvis X-Ray 07/17/18 14:57 IMPRESSION: Status post right total hip replacement. There is no evidence of fracture or dislocation. Postoperative soft tissue changes. Electronically Signed: Jamison Panchal MD at 15:42 EST , Service support , Medications Given Discontinued Medications Hydromorphone HCl (Dilaudid Inj) 0.5 mg IV X1 ONE Stop: 07/17/18 16:37 Last Admin: 07/17/18 16:56 Dose: 0.5 mg Sodium Chloride () 500 mls @ 1,000 mls/hr IV .Q30M MICHAEL Stop: 07/17/18 15:29 Last Admin: 07/17/18 15:15 Dose: 1,000 mls/hr Morphine Sulfate () 4 mg IV X1 ONE Stop: 07/17/18 14:57 Last Admin: 07/17/18 15:15 Dose: 4 mg Ondansetron HCl (Zofran) 4 mg IV X1 ONE Stop: 07/17/18 14:57 Last Admin: 07/17/18 15:15 Dose: 4 mg Emergency Department Course and Treatment: Patient was given morphine and Zofran for pain control. An x-ray of the hip showed the hip replacement without any dislocation or any other abnormalities. Labs were performed showing no leukocytosis. Patient was reevaluated and stated the morphine helped her pain somewhat but she still was in severe pain. She was no longer sobbing and her he art rate had improved with her lessening of crying. Patient was then given Dilaudid and on reevaluation was sitting comfortably playing on her phone. The bandage from surgery was taken down, and the underlying incision was clean, dry and intact with justine in place and no dehiscence. No surrounding erythema or induration. Patient would express pain with any light touch. Attempted to contact the surgeon, but unable to receive a call back. Patient has no findings on exam or lab work that would be concerning for underlying pathology that would require admission or transfer at this time. Patient was instructed to try taking the increased dose of oxycodone, and she stated she still had a large number of pills at home. She is to call first thing in the morning her surgeon's office to discuss her increased pain. She starts physical therapy tomorrow. Patient discharged home in improved condition. Treatment Plan: [] Disposition: [] Impression: right post-operative hip pain This note was generated with [employer] dictation software. It may contain incorrect words, spelling, and punctuation that were not noted in review of the chart prior to signing ED Disposition - Plan for ED Patient: Disposition: Home or Assisted Living Instructions: ED Post Op Pain Referrals: Katya Sutherland MD [Primary Care Provider] - Additional Instructions: Please call your surgeon first thing in the morning to discuss your increased hip pain. Continue taking your pain medications as prescribed. You may take 2 oxycodone at once for severe pain until you can follow-up with your doctor on the phone. If you have any worsening of your condition or any new concerning symptoms, please return immediately to the emergency department for another evaluation.
[2018-07-17] MEDS: Ondansetron 4 MG/2 ML Vial IV (15:15)
[2018-07-17] MEDS: Morphine 4 MG/ML Syringe IV (15:15)
[2018-07-17 15:35] LABS: Absolute Neutrophil Count 5.6 X10^3/uL (2.0-7.7); Basophil# 0.01 X10^3/uL; Basophil% 0.1 % (0-1); Eosinophil# 0.22 X10^3/uL; Eosinophils% 2.5 % (0-5); Hematocrit 28.8 % (37-47); Hemoglobin 9.5 g/dl (12.0-15.0); Mean Corpuscular Hgb 30.9 pg (27.0-32.0); Mean Corpuscular Volume 93.8 fL (81-99); Mean Platelet Vol. 8.8 fl (6.2-12.0); Monocyte# 0.72 X10^3/uL; Monocyte% 8.1 % (0-10); Neutrophil # 5.55 X10^3/uL (2.7-7.7); Neutrophil % 62.6 % (47-70); Platelet Count 316 K/mm3 (150-450); RBC Distribution Width CV 14.2 % (11.6-14.6); RBC Distribution Width SD 47.8 fl (35.1-43.9); Red Blood Count 3.07 M/mm3 (4.2-5.4); White Blood Count 8.9 K/mm3 (4.4-11.0)
[2018-07-17 15:42] LABS: BUN 7 mg/dL (7-18); Creatinine, Serum 0.56 mg/dL (0.55-1.02); Glucose 175 mg/dL (74-106)
[2018-07-17 15:43] LABS: Anion Gap 11 (5-15); BUN/Creat Ratio 12.5 RATIO (10-20); Calcium,Total 8.5 mg/dL (8.5-10.1); Chloride 105 mmol/L (98-107); EST Glomerular Filtration Rate 139 mL/min (>60); Est Glom Filt Rate - Afr Amer 168 mL/min (>60); Estimated Creatinine Clearance 148.04 ml/min; Potassium 3.6 mmol/L (3.5-5.1); Sodium Level 140 mmol/L (136-145)
[2018-07-17 15:49] LABS: POSITIVE COUNT NO; POSITIVE DIFFERENTIAL NO; POSITIVE MORPHOLOGY NO
[2018-07-17 15:54] LABS: International Normalized Ratio 1.1; Partial Thromboplast Time 35.3 Seconds (24.1-36.2)
[2018-07-17 16:08] VITALS: BP 133/83; PULSE 107; RESP 18; O2SAT 100
[2018-07-17] MEDS: HYDROmorphone 0.5 MG/0.5 ML SYRINGE IV (16:56)
== END 2018-07-17 18:15 | disposition home or self-care (01) ==
PROVIDERS: Emergency Provider Emergency Medicine; Family Provider Internal Medicine; PCP Internal Medicine
DX: M25.551 Pain in right hip (principal); Z96.641 Presence of right artificial hip joint; E66.9 Obesity, unspecified; Q65.89 Other specified congenital deformities of hip; Z79.01 Long term (current) use of anticoagulants; Z79.899 Other long term (current) drug therapy
CPT/HCPCS: 73502; 80048; 85025; 85610; 85730; 96361; 96374; 96375; 99284; J7030; J7040; A4216; J2405

== ENCOUNTER 2018-07-21 13:50 | Emergency (ER) | payer MEDICAID, SELFPAY ==
[2018-07-21 13:51] VITALS: BP 145/112; PULSE 137; RESP 19; TEMP 37.1; O2SAT 98; BMI 43.4
[2018-07-21] MEDS: Ondansetron 4 MG/2 ML Vial IV (15:34)
[2018-07-21] MEDS: 0.9% Normal Saline 1,000 ML 150 ML IV (15:34)
[2018-07-21] MEDS: HYDROmorphone 1 MG/ML Syringe 0.5 MG IV (15:34)
[2018-07-21 15:46] LABS: Absolute Lymphocyte Count 2.26 X10^3/ul (0.83-4.51); Absolute Neutrophil Count 7.1 X10^3/uL (2.0-7.7); Anion Gap 9 (5-15); BUN 8 mg/dL (7-18); BUN/Creat Ratio 13.9 RATIO (10-20); Basophil# 0.02 X10^3/uL; Basophil% 0.2 % (0-1); Calcium,Total 9.1 mg/dL (8.5-10.1); Chloride 107 mmol/L (98-107); Creatinine, Serum 0.58 mg/dL (0.55-1.02); EST Glomerular Filtration Rate 134 mL/min (>60); Eosinophil# 0.23 X10^3/uL; Eosinophils% 2.2 % (0-5); Est Glom Filt Rate - Afr Amer 162 mL/min (>60); Estimated Creatinine Clearance 142.94 ml/min; Glucose 122 mg/dL (74-106); Hematocrit 32.6 % (37-47); Hemoglobin 10.9 g/dl (12.0-15.0); Lymphocyte # 2.26 X10^3/ul (4.0); Lymphocyte % 21.9 % (19-41); Mean Corp Hgb Conc 33.4 g/gl (32-36); Mean Corpuscular Hgb 31.9 pg (27.0-32.0); Mean Corpuscular Volume 95.3 fL (81-99); Mean Platelet Vol. 8.8 fl (6.2-12.0); Monocyte# 0.63 X10^3/uL; Monocyte% 6.1 % (0-10); Neutrophil # 7.11 X10^3/uL (2.7-7.7); Platelet Count 498 K/mm3 (150-450); Potassium 3.7 mmol/L (3.5-5.1); RBC Distribution Width CV 14.7 % (11.6-14.6); RBC Distribution Width SD 47.1 fl (35.1-43.9); Red Blood Count 3.42 M/mm3 (4.2-5.4); Sodium Level 141 mmol/L (136-145); White Blood Count 10.3 K/mm3 (4.4-11.0)
[2018-07-21 15:54] LABS: POSITIVE COUNT NO; POSITIVE DIFFERENTIAL NO; POSITIVE MORPHOLOGY NO
[2018-07-21 16:19] LABS: Erythrocyte Sedimentation Rate 42 mm/hr (0-20)
--- NOTE | 2018-07-21 16:55 | ED.RN ---
CALLED AND LEFT A MESSAGE AT DR BOWERS OFFICE
[2018-07-21] MEDS: HYDROmorphone 0.5 MG/0.5 ML SYRINGE IV (17:07)
--- NOTE | 2018-07-21 17:58 | ED.VISSUMM ---
- ER Visit Summary Date of Service: 07/21/18 Chief Complaint: Right hip pain History of Present Illness: The patient is a 28 F who had right hip replacement on July 11. She has had 6 or 7 prior right hip surgeries. She is complaining of increased pain and was advised by her surgeon to take 2 oxycodone at a time instead of 1. She ran out of her medication yesterday. She presents to the ER today due to worsened pain. The surgeon is supposed to be overnight and a prescription to her house for her. She is to start PT 3 days ago but states they never showed up. She left a message for them this morning as well. She has not had fever or chills. She denies any sign of infection at the wound. Physical Examination: Blood pressure is 145/112 with a heart rate of 137. Patient sitting upright in bed crying. Heart is tachycardic and regular. Lungs sounds clear. Abdomen is soft and nontender. Right hip examination reveals 18 cm stapled incision of the lateral hip. There is no surrounding erythema or drainage. Patient has strong distal pulses. Test Results: CBC was normal white count hemoglobin 10.9 and platelet count of 498,000. Chemistry studies unremarkable. Sed rate is 42 and CRP is 27.6. Emergency Department Course and Treatment: Patient did receive 2 small doses of Dilaudid while here for pain control. Patient was seen in the ER last week for similar findings and that visit was reviewed. I attempted to call her orthopedic surgeon at [facility] but got no return call. Patient states that she got a message on her cell phone while she was in the emergency room stating that her orthopedic office would not overnight a prescription to her until they were able to speak with her on the phone. She will call them tomorrow. She will be given a prescription for 20 tabs of oxycodone. Treatment Plan: [] Disposition: Discharge Impression: Postop pain This note was generated with [employer] dictation software. It may contain incorrect words, spelling, and punctuation that were not noted in review of the chart prior to signing ED Disposition - Plan for ED Patient: Disposition: Home or Assisted Living Instructions: ED Post Op Pain Prescriptions: Oxycodone [Oxyir] 10 mg PO Q6H PRN PRN #20 tablet PRN Reason: Pain Additional Instructions: Call your surgeon's office tomorrow as discussed.
--- NOTE | 2018-07-21 18:01 | DCINST.ED_ITS ---
ED Disposition - Plan for ED Patient: Disposition: Home or Assisted Living Instructions: ED Post Op Pain Prescriptions: Oxycodone [Oxyir] 10 mg PO Q6H PRN PRN #20 tablet PRN Reason: Pain Additional Instructions: Call your surgeon's office tomorrow as discussed.
[2018-07-21 18:12] VITALS: BP 127/75; PULSE 106; RESP 18; O2SAT 100
--- NOTE | 2018-07-21 18:12 | ED.RN ---
IV DC'ED, CATHETER INTACT, SMALL GAUZE DRESSING PLACED. DISCHARGE INSTRUCTIONS GIVEN TO AND REVIEWED WITH PATIENT, PATIENT DENIES QUESTIONS OR CONCERNS AND VOICES UNDERSTANDING OF DISCHARGE INSTRUCTIONS. PT TO WAITING ROOM VIA WHEELCHAIR.
== END 2018-07-21 18:13 | disposition home or self-care (01) ==
PROVIDERS: Emergency Provider Emergency Medicine; Family Provider Internal Medicine; PCP Internal Medicine
DX: M25.551 Pain in right hip (principal); Z96.641 Presence of right artificial hip joint; K21.9 Gastro-esophageal reflux disease without esophagitis; E11.9 Type 2 diabetes mellitus without complications; Z87.442 Personal history of urinary calculi; Z79.4 Long term (current) use of insulin; Z79.84 Long term (current) use of oral hypoglycemic drugs; Z79.899 Other long term (current) drug therapy
CPT/HCPCS: 80048; 85025; 85652; 86140; 96361; 96374; 96375; 96376; 99283; J7030; A4216; J2405

== ENCOUNTER 2018-08-05 10:45 | Outpatient (RCR) | payer MEDICAID, SELFPAY ==
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
--- NOTE | 2018-12-10 14:47 | HP.PT.NRP ---
HP - Discharge Summary (1) - Patient Information SYLVESTER YEN was seen in my office for initial evaluation on 08/05/18. The following Plan of Care was established for this patient: Initial Frequency: 2x /Week Initial Duration: 4 Weeks - Anticipated Interventions Patient/Client Instruction: Educate patient on: Condition, Risk Factors, Benefits of Fitness Program For the Purpose of:: To improve safety, To improve health and function, To foster healthy habits, To improve decision making, To facilitate caregiver knowledge, To improve self management, To prevent re-injury, To improve ability to perform tasks related to life management, To improve tolerance to ADL's Therapeutic Exercise to Include: Strength training, Endurance training, Balance training, Coordination, Agility training, Body mechanics, Postural training, Gait and locomotor training, Passive ROM, Active ROM, Dynamic Lumbar Stabilization For the Purpose of:: To decrease pain, To decrease swelling/inflammation, To increase ROM, To improve nutrient delivery to tissue, To increase oxygenation perfusion, To improve muscle performance and motor function, To improve ability of physical actions for home/community/work/leisure, To improve gait and locomotor functions, To improve health of tissue, To decrease soft tissue restriction, To increase flexibility/ROM, To improve balance, To improve safety with gait TENS: Yes Cryotherapy (ice pack, ice massage): Yes For the Purpose of:: To decrease pain, To decrease swelling/inflammation This patient was last seen in our office 08/15/18. Pertinent comments regarding their Physical therapy will appear below: Pt. was seen for her initial evaluation for her TKA. Pt. has not been seen since her initial evaluation adn will be DC from PT at this point in time. At this point I will be discontinuing this patient from physical therapy. I would be happy to see this patient again in the future if found appropriate by the physician. Thank you! OPAL MillerT
== END 2018-08-05 19:00 | disposition home or self-care (01) ==
LOC: PT 10:45
PROVIDERS: Family Provider Internal Medicine; PCP Internal Medicine
DX: Z96.641 Presence of right artificial hip joint (principal)
CPT/HCPCS: 97161

== ENCOUNTER 2018-09-11 16:23 | Emergency (ER) | payer MEDICAID, SELFPAY ==
[2018-09-11 16:23] VITALS: BP 123/81; PULSE 120; RESP 18; TEMP 36.6; O2SAT 98; BMI 41.0
--- NOTE | 2018-09-11 16:31 | ED.VISSUMM ---
- ER Visit Summary Date of Service: 09/11/18 Chief Complaint: Abdominal pain and back pain History of Present Illness: The patient is a 28 F who has abdominal pain and back pain. Started today. She went to her doctor's office and they started her on Macrobid for a UTI. She has pain in the lower part of her abdomen that radiates to her back. She still has dysuria. She is now passing blood clots which made her concerned. She did take Tylenol for this pain at home. Physical Examination: Vital signs reviewed. HEENT exam unremarkable. Heart is regular rate and rhythm without murmurs. Lungs are clear to auscultation. Abdomen is soft with diffuse tenderness to palpation. She has lumbar diffuse tenderness as well. Extremities reveal no edema. Skin exam normal. Neurologic exam normal. Test Results: Urinalysis has 25-50 white blood cells and greater than 100 red blood cells Emergency Department Course and Treatment: The patient is already on Macrobid. I will give her Pyridium and naproxen at home. She will need to finish her course of antibiotics and will follow up with her PCP Treatment Plan: [] Disposition: Discharge Impression: UTI This note was generated with [employer] dictation software. It may contain incorrect words, spelling, and punctuation that were not noted in review of the chart prior to signing ED Disposition - Plan for ED Patient: Referrals: Katya Sutherland MD [Primary Care Provider] -
[2018-09-11] MEDS: Naproxen 500 MG Tablet PO (16:41)
[2018-09-11 16:48] LABS: Bacteria 0 SEEN /hpf (None Seen); Mucous, Urine 0 SEEN /hpf (<or=2+)
[2018-09-11 17:05] LABS: Internal QC Validated? YES +Cl - CLEAR BKGD; Pregnancy, Urine Negative Negative
[2018-09-11 17:08] LABS: Color, Urine Yellow (Yellow); Glucose, Dipstick Normal (Normal); Ketone-Dipstick Negative (Negative); Leukocyte Esterase-Dipstick 500 /ul (Negative); Nitrite-Dipstick Negative (Negative); Occult Blood-Urine 250 /ul (Negative); Protein-Dipstick 100 mg/dl (Negative); Specific Gravity, Urine 1.025 (1.002-1.030); Urine Bilirubin Dipstick Negative (Negative); Urine Clarity Cloudy (Clear); Urine Urobilinogen Normal (Normal)
[2018-09-11 17:30] LABS: Red Blood Cells-Urine > 100 SEEN /hpf (0-5)
[2018-09-11 17:31] LABS: Squamous Epithelial Cells - UA 0-5 SEEN /hpf (5-10); White Blood Cells 25-50 SEEN /hpf (0-5)
--- NOTE | 2018-09-11 17:41 | ED.DEP ---
ED Disposition - Plan for ED Patient: Disposition: Home or Assisted Living Instructions: ED UTI Cystitis Female Prescriptions: Naproxen [Naprosyn] 500 mg PO BID PRN #20 tab Phenazopyridine HCl [Pyridium] 200 mg PO BID PRN PRN #10 tab PRN Reason: Pain Referrals: Katya Sutherland MD [Primary Care Provider] -
== END 2018-09-11 17:46 | disposition home or self-care (01) ==
PROVIDERS: Emergency Provider Emergency Medicine; Family Provider Internal Medicine; PCP Internal Medicine
DX: N39.0 Urinary tract infection, site not specified (principal); E11.9 Type 2 diabetes mellitus without complications
CPT/HCPCS: 81001; 81025; 99283

== ENCOUNTER 2018-09-12 13:42 | Emergency (ER) | payer MEDICAID, SELFPAY ==
[2018-09-11 16:23] VITALS: BMI 41.0
[2018-09-12 13:42] VITALS: BP 109/69; PULSE 122; RESP 18; TEMP 36.7; O2SAT 99; BMI 40.8
--- NOTE | 2018-09-12 14:08 | CT_ITS ---
STUDY: CT ABDOMEN AND PELVIS WITHOUT CONTRAST REASON FOR EXAM: Female, 28 years old. History of kidney stones. Abdominal pain and vomiting. RADIATION DOSAGE (If Supplied By Facility): CTDIvol = ( 14.80 ) mGy, DLP = ( 814.85 ) mGycm TECHNIQUE: Transaxial images were obtained from the dome of the diaphragm to the symphysis pubis without oral contrast, and without intravenous contrast. Sagittal and coronal images were reconstructed. Individualized dose optimization techniques were used for this CT. COMPARISON: Comparison is made with prior examination dated January 06, 2018. FINDINGS: The visualized lung bases are unremarkable. The visualized portions of the heart are within normal limits. Normal liver. There are surgical clips in the gallbladder fossa consistent with a prior cholecystectomy. Normal spleen. Normal pancreas. Normal bilateral adrenal glands. Normal right kidney. There are 2 3 mm calcifications in the lower pole calyx of the left kidney suggestive of small nonobstructive intrarenal calculi. Normal visualized stomach. Normal small intestine. Normal colon. The appendix is visualized and appears normal. Normal abdominal aorta. Normal inferior vena cava. Normal retroperitoneum. Normal urinary bladder. There is a small umbilical hernia containing fat. Prior right hip replacement. CT/Abdomen/Pelvis without Cont IMPRESSION: There are 2 tiny nonobstructive left intrarenal calculus. Electronically Signed: Jamison Panchal, at 15:24 EDT , Service support ,
[2018-09-12] MEDS: 0.9% Normal Saline 1,000 ML 250 ML IV (14:32)
[2018-09-12] MEDS: Ondansetron 4 MG/2 ML Vial IV (14:34)
[2018-09-12] MEDS: Morphine 4 MG/ML Syringe IV (14:34)
[2018-09-12 14:39] VITALS: BP 140/86
[2018-09-12 14:56] LABS: Mucous, Urine 0 SEEN /hpf (<or=2+)
[2018-09-12 15:09] LABS: Glucose, Dipstick Normal (Normal); Ketone-Dipstick 50 mg/dl (Negative); Leukocyte Esterase-Dipstick 100 /ul (Negative); Nitrite-Dipstick Positive (Negative); Occult Blood-Urine 250 /ul (Negative); Protein-Dipstick 100 mg/dl (Negative); Urine Clarity Sl. Cloudy (Clear); Urine Urobilinogen 4 mg/dl (Normal)
[2018-09-12 15:10] LABS: Color, Urine SEE COMMENT BELOW (Yellow); Urine Bilirubin Dipstick 6 mg/dL (Negative)
[2018-09-12 15:11] LABS: Bacteria 1+ /hpf (None Seen); Red Blood Cells-Urine 25-50 SEEN /hpf (0-5); Squamous Epithelial Cells - UA 0-5 SEEN /hpf (5-10); White Blood Cells 10-25 SEEN /hpf (0-5)
--- NOTE | 2018-09-12 15:31 | ED.VIS.GEN ---
History of Present Illness Chief Complaint: Flank Pain Narrative: 28-year-old female presents with right flank pain. She was diagnosed with a urinary tract infection 2 days ago. She has taken 2 antibiotic pills. She was here last night with right flank pain and was given different medication the pain persists and has occasionally radiating anteriorly. She is not nauseated or vomiting. No fever. She is concerned that she could have a kidney stone. No other complaints. No pelvic pain or vaginal bleeding. Current severity is moderate. It is not affected by position at this point. She describes it as a sharp pain, intermittent. - Past Medical History (1) Vitamin D deficiency Status: Acute (2) Diabetes mellitus Status: Chronic Past Medical History - Allergies and Home Meds Allergies/Adverse Reactions: Allergies aspirin Allergy (Verified 09/12/18 13:45) Rash Penicillins Allergy (Verified 09/12/18 13:45) Rash ketorolac [From Toradol] Adverse Reaction (Verified 09/12/18 13:45) Other PAPER TAPE Allergy (Uncoded 09/12/18 13:45) Other FRANTZ LARATS Primary Care Physician: Katya Sutherland MD [Primary Care Provider] - Surgical History: - - Patient has a history of multiple surgeries for dysplasia no history of complications with anesthesia Smoking Status: Former smoker Review of Systems All systems negative except as indicated General: Denies: Chills, Fever, Sweats Eyes: Denies: Visual changes - bilaterally, Diplopia ENT: Denies: Rhinorrhea, Sore throat Cardiovascular: Denies: Chest pain, Palpitations Respiratory: Denies: Dyspnea, Cough, Dyspnea on exertion Gastrointestinal: Denies: Abdominal pain, Nausea, Vomiting, Diarrhea, Melena, Hematochezia Genitourinary: Reports: Dysuria, Frequency. Denies: Hematuria Musculoskeletal: Reports: Back pain. Denies: Extremity Pain Skin: Denies: Rash, Wounds Neurological: Denies: Headache, Weakness, Numbness Physical Exam Vital Signs/Narrative: Vital Signs Temp Pulse Resp BP Pulse Ox 09/12/18 14:39 140/86 H 09/12/18 13:42 98.0 F 122 H 18 109/69 99 Inital Vital Signs reviewed: Yes General: Well nourished, Well developed, No Acute Distress Head: Normocephalic, Atraumatic Eyes: Perrl, EOMI ENT: Moist mucous membranes, No rhinorrhea Neck: Supple, Nontender Cardiovascular: Regular rate, Regular rhythm, No murmurs Respiratory: No distress, CTA bilaterally, Chest nontender Abdomen: Soft, Nontender, Nondistended, Normal bowel sounds Back: Nontender, Normal Inspection Extremities: Nontender, No edema Skin: Normal color, No rash Neurological: Alert, Oriented x3, Cranial nerves II-XII grossly intact, Normal Strength, Normal Sensation Psychological: Normal affect, Normal Mood Diagnostic/Tx/Re-eval - Medical Decision Making Urine appears obviously infected. Positive nitrites, leuks, and bacteria. No glucose. CT abdomen/pelvis negative for ureteral stone on the right. 2 small stones in the left kidney but nothing in the ureter. No hydronephrosis. No perinephric stranding or inflammation on the right. She has no anterior abdominal discomfort or pelvic pain at all. Her abdomen is soft and nontender. Her heart rate is approximately 80 on my examination just prior to entering this note. She is feeling much better. She is smiling, sitting up in the bed, well-appearing. Not in distress. She has no vomiting or fever to suggest pyelonephritis. I will send a urine culture and give her a dose of intravenous Cipro here she does have a penicillin allergy.. At this point, she would like to try going home on a different antibiotic. I discussed with her the fact that this is her second visit for this and that it would be reasonable to hospitalize her overnight for IV antibiotics but she would prefer to go home and given her well appearance, I think this is safe. She will be prescribed Keflex and discontinue the nitrofurantoin. She will follow-up with her doctor on Saturday for urine culture results and return here if having worse pain, vomiting, or fever over the weekend. ED Disposition - Plan for ED Patient: Diagnosis: Pyelonephritis Instructions: ED UTI Cystitis Female, ED Kidney Infec Female Prescriptions: Oxycodone HCl/Acetaminophen [Percocet 5/325] 1 tablet PO Q6H PRN PRN 3 Days #12 tablet PRN Reason: Pain Ciprofloxacin [Cipro] 500 mg PO BID #20 tablet Referrals: Katya Sutherland MD [Primary Care Provider] -
--- NOTE | 2018-09-12 15:36 | ED.DCSUM_ITS ---
History of Present Illness Chief Complaint: Flank Pain Narrative: 28-year-old female presents with right flank pain. She was diagnosed with a urinary tract infection 2 days ago. She has taken 2 antibiotic pills. She was here last night with right flank pain and was given different medication the pain persists and has occasionally radiating anteriorly. She is not nauseated or vomiting. No fever. She is concerned that she could have a kidney stone. No other complaints. No pelvic pain or vaginal bleeding. Current severity is moderate. It is not affected by position at this point. She describes it as a sharp pain, intermittent. - Past Medical History (1) Vitamin D deficiency Status: Acute (2) Diabetes mellitus Status: Chronic Past Medical History - Allergies and Home Meds Allergies/Adverse Reactions: Allergies aspirin Allergy (Verified 09/12/18 13:45) Rash Penicillins Allergy (Verified 09/12/18 13:45) Rash ketorolac [From Toradol] Adverse Reaction (Verified 09/12/18 13:45) Other PAPER TAPE Allergy (Uncoded 09/12/18 13:45) Other FRANTZ LARATS Primary Care Physician: Katya Sutherland MD [Primary Care Provider] - Surgical History: - - Patient has a history of multiple surgeries for dysplasia no history of complications with anesthesia Smoking Status: Former smoker Review of Systems All systems negative except as indicated General: Denies: Chills, Fever, Sweats Eyes: Denies: Visual changes - bilaterally, Diplopia ENT: Denies: Rhinorrhea, Sore throat Cardiovascular: Denies: Chest pain, Palpitations Respiratory: Denies: Dyspnea, Cough, Dyspnea on exertion Gastrointestinal: Denies: Abdominal pain, Nausea, Vomiting, Diarrhea, Melena, Hematochezia Genitourinary: Reports: Dysuria, Frequency. Denies: Hematuria Musculoskeletal: Reports: Back pain. Denies: Extremity Pain Skin: Denies: Rash, Wounds Neurological: Denies: Headache, Weakness, Numbness Physical Exam Vital Signs/Narrative: Vital Signs Temp Pulse Resp BP Pulse Ox 09/12/18 14:39 140/86 H 09/12/18 13:42 98.0 F 122 H 18 109/69 99 Inital Vital Signs reviewed: Yes General: Well nourished, Well developed, No Acute Distress Head: Normocephalic, Atraumatic Eyes: Perrl, EOMI ENT: Moist mucous membranes, No rhinorrhea Neck: Supple, Nontender Cardiovascular: Regular rate, Regular rhythm, No murmurs Respiratory: No distress, CTA bilaterally, Chest nontender Abdomen: Soft, Nontender, Nondistended, Normal bowel sounds Back: Nontender, Normal Inspection Extremities: Nontender, No edema Skin: Normal color, No rash Neurological: Alert, Oriented x3, Cranial nerves II-XII grossly intact, Normal Strength, Normal Sensation Psychological: Normal affect, Normal Mood Diagnostic/Tx/Re-eval - Medical Decision Making Urine appears obviously infected. Positive nitrites, leuks, and bacteria. No glucose. CT abdomen/pelvis negative for ureteral stone on the right. 2 small stones in the left kidney but nothing in the ureter. No hydronephrosis. No perinephric stranding or inflammation on the right. She has no anterior abdominal discomfort or pelvic pain at all. Her abdomen is soft and nontender. Her heart rate is approximately 80 on my examination just prior to entering this note. She is feeling much better. She is smiling, sitting up in the bed, well- appearing. Not in distress. She has no vomiting or fever to suggest p yelonephritis. I will send a urine culture and give her a dose of intravenous Cipro here she does have a penicillin allergy.. At this point, she would like to try going home on a different antibiotic. I discussed with her the fact that this is her second visit for this and that it would be reasonable to hospitalize her overnight for IV antibiotics but she would prefer to go home and given her w ell appearance, I think this is safe. She will be prescribed Keflex and discontinue the nitrofurantoin. She will follow-up with her doctor on Saturday for urine culture results and return here if having worse pain, vomiting, or fever over the weekend. ED Disposition - Plan for ED Patient: Diagnosis: Pyelonephritis Instructions: ED UTI Cystitis Female, ED Kidney Infec Female Prescriptions: Oxycodone HCl/Acetaminophen [Percocet 5/325] 1 tablet PO Q6H PRN PRN 3 Days #12 tablet PRN Reason: Pain Ciprofloxacin [Cipro] 500 mg PO BID #20 tablet Referrals: Katya Sutherland MD [Primary Care Provider] -
[2018-09-12] MEDS: Ciprofloxacin 400 MG/200 ML BAG 200 MG IV (15:58)
[2018-09-12 16:20] VITALS: PULSE 79; RESP 16; O2SAT 99
[2018-09-12 16:52] VITALS: BP 118/76; PULSE 110; RESP 16; O2SAT 98
== END 2018-09-12 17:13 | disposition home or self-care (01) ==
PROVIDERS: Emergency Provider Emergency Medicine; Family Provider Internal Medicine; PCP Internal Medicine
DX: N12 Tubulo-interstitial nephritis, not specified as acute or chronic (principal); N39.0 Urinary tract infection, site not specified; Z79.2 Long term (current) use of antibiotics; E11.9 Type 2 diabetes mellitus without complications; Z87.891 Personal history of nicotine dependence
CPT/HCPCS: 74176; 81001; 96361; 96365; 96375; 99283; J7030; J0744; J2405

== ENCOUNTER 2018-11-26 14:52 | Emergency (ER) | payer MEDICAID, SELFPAY ==
[2018-11-17 12:52] VITALS: BMI 40.8
[2018-11-26 14:52] VITALS: BP 148/85; PULSE 98; RESP 16; TEMP 36.8; O2SAT 97; BMI 42.5
[2018-11-26 15:11] VITALS: RESP 18
[2018-11-26] MEDS: 0.9% Normal Saline 1,000 ML 999 ML IV (15:17)
[2018-11-26] MEDS: Ondansetron 4 MG/2 ML Vial IV (15:17)
[2018-11-26 15:21] LABS: Absolute Lymphocyte Count 3.34 X10^3/ul (0.83-4.51); Absolute Neutrophil Count 6.5 X10^3/uL (2.0-7.7); Basophil# 0.03 X10^3/uL; Basophil% 0.3 % (0-1); Eosinophil# 0.16 X10^3/uL; Eosinophils% 1.5 % (0-5); Hematocrit 38.1 % (37-47); Hemoglobin 13.2 g/dl (12.0-15.0); Lymphocyte # 3.34 X10^3/ul (4.0); Lymphocyte % 30.7 % (19-41); Mean Corp Hgb Conc 34.6 g/gl (32-36); Mean Corpuscular Hgb 30.5 pg (27.0-32.0); Monocyte# 0.77 X10^3/uL; Monocyte% 7.1 % (0-10); Neutrophil # 6.53 X10^3/uL (2.7-7.7); Neutrophil % 59.8 % (47-70); Platelet Count 339 K/mm3 (150-450); RBC Distribution Width CV 14.7 % (11.6-14.6); RBC Distribution Width SD 46.3 fl (35.1-43.9); Red Blood Count 4.33 M/mm3 (4.2-5.4); White Blood Count 10.9 K/mm3 (4.4-11.0)
[2018-11-26 15:22] LABS: POSITIVE COUNT NO; POSITIVE DIFFERENTIAL NO; POSITIVE MORPHOLOGY NO
[2018-11-26 15:38] LABS: ALB/GLOB Ratio 1.1 RATIO (0.9-2.4); AST(SGOT) 13 U/L (15-37); Alanine Aminotransfer ALT/SGPT 27 U/L (13-56); Albumin, Serum 3.5 g/dL (3.2-5.0); Alkaline Phosphatase 81 U/L (45-117); Anion Gap 8 (5-15); BUN 5 mg/dL (7-18); BUN/Creat Ratio 8.3 RATIO (10-20); Calcium,Total 8.5 mg/dL (8.5-10.1); Chloride 108 mmol/L (98-107); EST Glomerular Filtration Rate 127 mL/min (>60); Est Glom Filt Rate - Afr Amer 154 mL/min (>60); Estimated Creatinine Clearance 138.17 ml/min; Globulin 3.1 g/dL (2.2-4.2); Glucose 178 mg/dL (74-106); Internal QC Validated? YES +Cl - CLEAR BKGD; Lipase 130 U/L (73-393); Potassium 3.3 mmol/L (3.5-5.1); Protein, Total 6.6 g/dL (6.4-8.2); Sodium Level 139 mmol/L (136-145)
[2018-11-26 15:39] LABS: Pregnancy, Serum, hCG Quali. POSITIVE Negative
--- NOTE | 2018-11-26 15:40 | ED.RN ---
POSITIVE, DR. PACKER AWARE.
--- NOTE | 2018-11-26 16:03 | ED.DCSUM_ITS ---
- ER Visit Summary Date of Service: 11/26/18 Chief Complaint: Nausea and vomiting History of Present Illness: The patient is a 28 F who for 3 days of nausea and vomiting. She states she has vomited multiple times a day. Denies any abdominal pain. No diarrhea. No urinary symptoms. Denies . She states that water makes it worse. She feels hot but no documented fevers. She is a type II diabetic. Physical Examination: Vital signs reviewed. HEENT exam unremarkable. Heart is regular rate and rhythm without murmurs. Lungs are clear to auscultation. Abdomen is soft and nontender. Extremities reveal no edema. Skin exam normal. Neurologic exam normal. Test Results: Labs are normal except for potassium 3.3, chloride 108, glucose 178. test is positive Emergency Department Course and Treatment: Patient was given saline Zofran. She feels much better. Patient will be discharged with Phenergan. Tomorrow she does have an PHOTOGRAPHIC HAND DEVELOPER that she sees. She will start a vitamin. Treatment Plan: [] Disposition: Discharge Impression: , nausea and vomiting This note was generated with [employer] dictation software. It may contain incorrect words, spelling, and punctuation that were not noted in review of the chart prior to signing ED Disposition - Plan for ED Patient: Referrals: Katya Sutherland MD [Primary Care Provider] -
--- NOTE | 2018-11-26 16:05 | ED.DEP ---
ED Disposition - Plan for ED Patient: Disposition: Home or Assisted Living Instructions: VOMITING (8y-Adult) Prescriptions: proMETHazine tablet [Phenergan] 25 mg PO Q6H PRN PRN #20 tab PRN Reason: Nausea Prescription Printed Referrals: Katya Sutherland MD [Primary Care Provider] -
[2018-11-26 16:27] VITALS: BP 138/98; PULSE 104; RESP 18; O2SAT 99
== END 2018-11-26 16:28 | disposition home or self-care (01) ==
PROVIDERS: Emergency Provider Emergency Medicine; Family Provider Internal Medicine; PCP Internal Medicine
DX: O26.899 Other specified pregnancy related conditions, unspecified trimester (principal); R11.2 Nausea with vomiting, unspecified; O24.919 Unspecified diabetes mellitus in pregnancy, unspecified trimester; Z3A.00 Weeks of gestation of pregnancy not specified; Z79.4 Long term (current) use of insulin; Z79.84 Long term (current) use of oral hypoglycemic drugs
CPT/HCPCS: 80053; 83690; 84703; 85025; 96361; 96374; 99283; J7030; A4216; J2405

== ENCOUNTER → 2018-12-01 | Outpatient (CLI) | payer MEDICAID, SELFPAY ==
[2018-11-26 14:52] VITALS: BMI 42.5
[2018-12-01 18:30] LABS: hCG Titer Quant., Serum 5363 mIU/mL (1-3)
== END | disposition home or self-care (01) ==
LOC: LAB 16:30
PROVIDERS: Family Provider Internal Medicine; PCP Internal Medicine; Referring Provider Obstetrics & Gynecology; Visit Provider Obstetrics & Gynecology
DX: O20.0 Threatened abortion (principal); Z3A.00 Weeks of gestation of pregnancy not specified
CPT/HCPCS: 36415; 84702

== ENCOUNTER → 2018-12-05 | Outpatient (CLI) | payer MEDICAID, SELFPAY ==
[2018-11-26 14:52] VITALS: BMI 42.5
[2018-12-05 11:14] LABS: hCG Titer Quant., Serum 9655 mIU/mL (1-3)
== END | disposition home or self-care (01) ==
LOC: LAB 08:53
PROVIDERS: Family Provider Internal Medicine; PCP Internal Medicine; Referring Provider Obstetrics & Gynecology; Visit Provider Obstetrics & Gynecology
DX: O20.0 Threatened abortion (principal); Z3A.00 Weeks of gestation of pregnancy not specified
CPT/HCPCS: 36415; 84702

== ENCOUNTER → 2018-12-16 | Outpatient (CLI) | payer MEDICAID, SELFPAY ==
[2018-12-16 08:57] VITALS: BMI 42.5
[2018-12-16 10:24] LABS: Absolute Lymphocyte Count 2.64 X10^3/uL (0.83-4.51); Absolute Neutrophil Count 7.6 X10^3/uL (2.0-7.7); Basophil# 0.03 X10^3/uL; Basophil% 0.3 % (0-1); Eosinophil# 0.12 X10^3/uL; Eosinophils% 1.1 % (0-5); Hematocrit 37.9 % (37-47); Hemoglobin 13.3 g/dL (12.0-15.0); Lymphocyte # 2.64 X10^3/ul (4.0); Lymphocyte % 23.6 % (19-41); Mean Corp Hgb Conc 35.1 g/dL (32-36); Mean Corpuscular Hgb 31.7 pg (27.0-32.0); Mean Corpuscular Volume 90.5 fL (81-99); Mean Platelet Vol. 8.9 fl (6.2-12.0); Monocyte# 0.68 X10^3/uL; Monocyte% 6.1 % (0-10); NRBC Flagged by Analyzer 0 % (0-5); Neutrophil # 7.63 X10^3/uL (2.7-7.7); Neutrophil % 68.3 % (47-70); Platelet Count 302 K/mm3 (150-450); RBC Distribution Width CV 13.2 % (11.6-14.6); RBC Distribution Width SD 43.4 fl (35.1-43.9); Red Blood Count 4.19 M/mm3 (4.2-5.4); White Blood Count 11.2 K/mm3 (4.4-11.0)
[2018-12-16 10:48] LABS: Hemoglobin A1c 6.7 % (4.2-6.3)
[2018-12-16 11:06] LABS: ALB/GLOB Ratio 0.9 RATIO (0.9-2.4); AST(SGOT) 12 U/L (15-37); Alanine Aminotransfer ALT/SGPT 19 U/L (13-56); Albumin, Serum 3.6 g/dL (3.2-5.0); Alkaline Phosphatase 88 U/L (45-117); Anion Gap 12 (5-15); BUN 9 mg/dL (7-18); BUN/Creat Ratio 17.8 RATIO (10-20); Calcium,Total 8.8 mg/dL (8.5-10.1); Chloride 104 mmol/L (98-107); Creatinine, Serum 0.51 mg/dL (0.55-1.02); EST Glomerular Filtration Rate 155 mL/min (>60); Est Glom Filt Rate - Afr Amer 188 mL/min (>60); Globulin 3.8 g/dL (2.2-4.2); Glucose 139 mg/dL (74-106); Potassium 3.6 mmol/L (3.5-5.1); Protein, Total 7.4 g/dL (6.4-8.2); Sodium Level 139 mmol/L (136-145); T4 Free Direct 1.13 ng/dL (0.76-1.46)
[2018-12-16 12:01] LABS: HIV - WCH Non-Reactive (Nonreactive); Hepatitis B Surface Antigen Non-Reactive (Nonreactive); Rubella IgG 195.7 IU/mL
[2018-12-16 14:16] LABS: Protein, Urine (Random) 11.3 mg/dL (<11.9); Protein:Creat Ratio 103 mg/g CRE (0-200)
[2018-12-16 16:57] LABS: Chlamydia Trachomatis by PCR Negative (Negative); Neisserai gonorrhoeae by PCR Negative (Negative); Probe Check PASS; Sample Adequacy Control PASS; Specimen Processing Control PASS
[2018-12-18 11:32] LABS: V-Zoster IgG (Immunity) 1066 index (Immune >165)
[2018-12-19 04:56] LABS: Rapid Plasmin Reagin (RPR) NONREACTIVE (NONREACTIVE)
== END | disposition home or self-care (01) ==
PROVIDERS: Family Provider Internal Medicine; PCP Internal Medicine; Referring Provider Obstetrics & Gynecology; Visit Provider Obstetrics & Gynecology
DX: O09.90 Supervision of high risk pregnancy, unspecified, unspecified trimester (principal); O24.919 Unspecified diabetes mellitus in pregnancy, unspecified trimester; Z3A.00 Weeks of gestation of pregnancy not specified
CPT/HCPCS: 36415; 80053; 82570; 83036; 84156; 84439; 84443; 85025; 86592; 86703; 86762; 86787; 86850; 86900; 87086; 87088; 87340; 87491; 87591

== ENCOUNTER 2018-12-18 17:34 | Emergency (ER) | payer MEDICAID, SELFPAY ==
[2018-12-16 10:02] VITALS: BMI 42.5
[2018-12-18 17:34] VITALS: BP 131/89; PULSE 104; RESP 20; TEMP 36.6; O2SAT 97; BMI 42.7
[2018-12-18 19:41] LABS: Bacteria 0 SEEN /hpf (None Seen); Mucous, Urine 0 SEEN /hpf (<or=2+); Red Blood Cells-Urine 0 SEEN /hpf (0-5); White Blood Cells 0 SEEN /hpf (0-5)
[2018-12-18 19:42] LABS: Absolute Neutrophil Count 9.1 X10^3/uL (2.0-7.7); Basophil# 0.03 X10^3/uL; Basophil% 0.2 % (0-1); Eosinophil# 0.12 X10^3/uL; Eosinophils% 0.9 % (0-5); Hematocrit 38.8 % (37-47); Hemoglobin 13.7 g/dL (12.0-15.0); Lymphocyte % 23.9 % (19-41); Mean Corp Hgb Conc 35.3 g/dL (32-36); Mean Corpuscular Hgb 31.9 pg (27.0-32.0); Mean Corpuscular Volume 90.4 fL (81-99); Mean Platelet Vol. 8.8 fl (6.2-12.0); Monocyte% 6.7 % (0-10); NRBC Flagged by Analyzer 0 % (0-5); Neutrophil # 9.09 X10^3/uL (2.7-7.7); Neutrophil % 67.8 % (47-70); Platelet Count 323 K/mm3 (150-450); RBC Distribution Width CV 13.2 % (11.6-14.6); RBC Distribution Width SD 43.2 fl (35.1-43.9); Red Blood Count 4.29 M/mm3 (4.2-5.4); White Blood Count 13.4 K/mm3 (4.4-11.0)
[2018-12-18 19:45] LABS: Color, Urine Yellow (Yellow); Glucose, Dipstick Normal (Normal); Ketone-Dipstick 5 mg/dl (Negative); Leukocyte Esterase-Dipstick Negative /ul (Negative); Nitrite-Dipstick Negative (Negative); Occult Blood-Urine Negative /ul (Negative); Protein-Dipstick 15 mg/dl (Negative); Urine Bilirubin Dipstick Negative (Negative); Urine Clarity Sl. Cloudy (Clear); Urine Urobilinogen Normal (Normal)
[2018-12-18 19:57] LABS: Squamous Epithelial Cells - UA 0-5 SEEN /hpf (5-10)
[2018-12-18 19:58] LABS: Anion Gap 7 (5-15); BUN 9 mg/dL (7-18); BUN/Creat Ratio 16.2 RATIO (10-20); Calcium,Total 9.6 mg/dL (8.5-10.1); Chloride 103 mmol/L (98-107); Creatinine, Serum 0.56 mg/dL (0.55-1.02); EST Glomerular Filtration Rate 140 mL/min (>60); Est Glom Filt Rate - Afr Amer 169 mL/min (>60); Estimated Creatinine Clearance 148.04 ml/min; Glucose 110 mg/dL (74-106); Potassium 3.4 mmol/L (3.5-5.1); Sodium Level 135 mmol/L (136-145)
[2018-12-18] MEDS: Morphine 4 MG/ML Syringe IV (20:18)
[2018-12-18] MEDS: 0.9% Normal Saline 1,000 ML 1000 ML IV (20:18)
[2018-12-18] MEDS: Ondansetron 4 MG/2 ML Vial IV (20:18)
[2018-12-18 20:29] LABS: AST(SGOT) 14 U/L (15-37); Alanine Aminotransfer ALT/SGPT 24 U/L (13-56); Albumin, Serum 3.6 g/dL (3.2-5.0); Alkaline Phosphatase 93 U/L (45-117); Bilirubin, Direct 0.25 mg/dL (0.00-0.30); Globulin 4.1 g/dL (2.2-4.2); Lipase 65 U/L (73-393); Protein, Total 7.7 g/dL (6.4-8.2)
--- NOTE | 2018-12-18 21:05 | US_ITS ---
STUDY: FIRST TRIMESTER OBSTETRICAL ULTRASOUND REASON FOR EXAM: Female, 28 years old. Abdominal pain LMP: 10/19/1989 TECHNIQUE: A pelvic ultrasound was performed. Multiple silva scale and color duplex images were obtained TECHNICAL QUALITY: Adequate. PRIOR ULTRASOUND: Ultrasound 09/19/2017 FINDINGS: There is visualization of a single gestational sac in a normal intrauterine position. The mean sac diameter (MSD) measures 2.72 cm, indicating an estimated gestational age (EGA) of 8 weeks, 0 days. The gestational sac shape is within normal limits. There is a visualized yolk sac. The yolk sac measures 4 mm. The placenta is non-visualized. There is a hemorrhage bleed measuring 1.4 x 0.6 cm. There is visualization of a live embryo. The crown-rump length (CRL) measures 1.71 cm, indicating an estimated gestational age (EGA) of 8 weeks, 2 days. There is demonstrated cardiac activity with a heart rate of 178 bpm. The estimated gestation age (EGA) by LMP is 8 weeks, 4 days. The estimated date of delivery (DELFINA) by LMP is 07/26/2019. The estimated gestation age (EGA) by US is 8 weeks, 1 days. The estimated date of delivery (DELFINA) by US is 07/29/2019. The uterus measures 8.9 x 5 x 7.5 cm. There is no demonstrated uterine fibroid. The cervix is closed. There is a history of prior right oophorectomy. The left ovary measures 3.5 x 2.6 x 2.6 cm. There is a 1.9 x 2.5 x 1.3 cm left ovarian cyst. There is no visualized left adnexal mass or complex lesion. There is no fluid in the cul de sac. US/Transvaginal w/Preg US IMPRESSION: Single live intrauterine gestation as above ultrasound follow-up in 10 weeks to evaluate anatomy is recommended, evaluation of anatomy at this age is nondiagnostic 1.4 x 0.6 cm Subchorionic hematoma History of right oophorectomy. 1.9 x 2.5 x 1.3 cm left ovarian cyst., Likely corpus luteal cyst Electronically Signed: Rolly Miller, at 22:13 EDT Tel , Service support ,
[2018-12-18 21:07] LABS: Internal QC Validated? YES +Cl - CLEAR BKGD
[2018-12-18 21:11] LABS: Pregnancy, Serum, hCG Quali. POSITIVE Negative
[2018-12-18 22:39] VITALS: RESP 18
--- NOTE | 2018-12-18 23:11 | ED.DCSUM_ITS ---
History of Present Illness Chief Complaint: Abd Pain Informant: Patient - Abdominal Pain/Flank Pain Onset: Days - 2 Context: Gradual Onset Timing: Continuous Quality: Aching Location: - - across upper abdomen Current Severity: Severe Maximum Severity: Severe Worsened by: Food Relieved by: Nothing - Nausea/Vomiting/Emesis GI Symptom: Nausea, Vomiting Onset: Yesterday Quality: Nonbilious. Negative for: Blood streaks, Coffee ground, Hematemesis - Diarrhea/Melena/Hematochezia GI Symptom: Diarrhea. Negative for: Melena, Hematochezia Onset: Yesterday Stool Quality: Watery. Negative for: Mucous, Black, Maroon, CONSTANTIN per rectum Severity: Moderate Associated Symptoms: Negative for: Dysuria, Frequency, Hematuria, Urgency LMP: - 8wks Narrative: Patient is 8 weeks has had vomiting, diarrhea, upper abdominal discomfort, the pain radiates into her mid back and is similar to about of pancreatitis that she had remotely that was associated with gallstones, subsequently she had a cholecystectomy and has not had pancreatitis since. She has had no alcohol recently. She denies any vaginal bleeding. - Past Medical History (1) Diabetes mellitus Status: Chronic Comment: Class C; currently on Metformin and insulin Past Medical History - Allergies and Home Meds Allergies/Adverse Reactions: Allergies aspirin Allergy (Verified 12/18/18 17:36) Rash Penicillins Allergy (Verified 12/18/18 17:36) Rash ketorolac [From Toradol] Adverse Reaction (Verified 12/18/18 17:36) Other PAPER TAPE Allergy (Uncoded 12/18/18 17:36) Other RED WELTS Primary Care Physician: Katya Sutherland MD [Primary Care Provider] - Surgical History: - - Smoking Status: Never smoker Drugs: None Review of Systems General: Reports: Malaise. Denies: Chills, Fever, Sweats Eyes: Denies: Visual changes - bilaterally, Diplopia ENT: Denies: Rhinorrhea, Sore throat Cardiovascular: Denies: Chest pain, Palpitations Respiratory: Denies: Dyspnea, Cough, Dyspnea on exertion Gastrointestinal: Reports: Abdominal pain, Nausea, Vomiting, Diarrhea. Denies: Melena, Hematochezia Genitourinary: Denies: Dysuria, Hematuria, Frequency Musculoskeletal: Reports: Back pain. Denies: Swelling, Extremity Pain Skin: Denies: Rash, Wounds Neurological: Denies: Headache, Weakness, Numbness Physical Exam Vital Signs/Narrative: Vital Signs Resp 12/18/18 22:39 18 Inital Vital Signs reviewed: Yes General: Well nourished, Well developed, Obese, No Acute Distress Head: Normocephalic, Atraumatic Eyes: Perrl, EOMI ENT: Moist mucous membranes, No rhinorrhea Neck: Supple, Nontender, No lymphadenopathy Cardiovascular: Regular rate, Regular rhythm, No murmurs, Tachycardia - mild Respiratory: No distress, CTA bilaterally, Chest nontender Abdomen: Soft, Nondistended, Normal bowel sounds, Tender - throughout upper abd only; otherwise, NT. Negative for: Guarding, Rebound tenderness Back: Nontender, Normal Inspection. Negative for: CVA tenderness Extremities: Nontender, No edema Skin: Normal color, No rash, No Trauma Neurological: Alert, Oriented x3, Cranial nerves II-XII grossly intact, Normal Strength, Normal Sensation, Normal Gait Psychological: Normal affect, Normal Mood Diagnostic/Tx/Re-eval Impressions Obstetrics Ultrasound 12/18/18 21:05 IMPRESSION: Single live intrauterine gestation as above ultrasound follow-up in 10 weeks to evaluate anatomy is recommended, evaluation of anatomy at this age is nondiagnostic 1.4 x 0.6 cm Subchorionic hematoma History of right oophorectomy. 1.9 x 2.5 x 1.3 cm left ovarian cyst., Likely corpus luteal cyst Electronically Signed: Rolly Miller, at 22:13 EDT Tel , Service support , 12/18/18 21:05 US Vaginal [Transvaginal w/Preg US] [US] Stat Laboratory Results 12/18/18 12/18/18 12/18/18 19:08 19:30 19:30 WBC 13.4 H RBC 4.29 Hgb 13.7 Hct 38.8 MCV 90.4 MCH 31.9 MCHC 35.3 RDW Std Deviation 43.2 RDW Coeff of Paty 13.2 Plt Count 323 MPV 8.8 Immature Gran % (Auto) 0.500 Neut % (Auto) 67.8 Lymph % (Auto) 23.9 [place] % (Auto) 6.7 Eos % (Auto) 0.9 Baso % (Auto) 0.2 Absolute Neuts (auto) 9.1 H Absolute Lymphs (auto) 3.20 Absolute Nucleated RBC 0.00 Nucleated RBC % 0 Sodium 135 L Potassium 3.4 L Chloride 103 Carbon Dioxide 25.0 Anion Gap 7 BUN 9 Creatinine 0.56 Estim Creat Clear Calc 148.04 Est GFR (MDRD) Af Amer 169 Est GFR (MDRD) Non-Af 140 BUN/Creatinine Ratio 16.2 Glucose 110 H Calcium 9.6 Total Bilirubin Direct Bilirubin AST ALT Alkaline Phosphatase Total Protein Albumin Globulin Lipase HCG, Quant Serum , Qual Urine Color Yellow Urine Clarity Sl. Cloudy Urine pH 5.0 Ur Specific [place] 1.030 Urine Protein 15 H Urine Glucose (UA) Normal Urine Ketones 5 H Urine Occult Blood Negative Urine Nitrite Negative Urine Bilirubin Negative Urine Urobilinogen Normal Ur Leukocyte Esterase Negative Urine RBC 0 SEEN Urine WBC 0 SEEN Ur Squamous Epith Cells 0-5 SEEN Urine Bacteria 0 SEEN Urine Mucus 0 SEEN 12/18/18 12/18/18 12/18/18 19:30 19:30 19:30 WBC RBC Hgb Hct MCV MCH MCHC RDW Std Deviation RDW Coeff of Paty Plt Count MPV Immature Gran % (Auto) Neut % (Auto) Lymph % (Auto) [facility] % (Auto) Eos % (Auto) Baso % (Auto) Absolute Neuts (auto) Absolute Lymphs (auto) Absolute Nucleated RBC Nucleated RBC % Sodium Potassium Chloride Carbon Dioxide Anion Gap BUN Creatinine Estim Creat Clear Calc Est GFR (MDRD) Af Amer Est GFR (MDRD) Non-Af BUN/Creatinine Ratio Glucose Calcium Total Bilirubin 1.10 H Direct Bilirubin 0.25 AST 14 L ALT 24 Alkaline Phosphatase 93 Total Protein 7.7 Albumin 3.6 Globulin 4.1 Lipase 65 L HCG, Quant 88878 H Serum , Qual POSITIVE Urine Color Urine Clarity Urine pH Ur Specific [place] Urine Protein Urine Glucose (UA) Urine Ketones Urine Occult Blood Urine Nitrite Urine Bilirubin Urine Urobilinogen Ur Leukocyte Esterase Urine RBC Urine WBC Ur Squamous Epith Cells Urine Bacteria Urine Mucus - Medical Decision Making After treatment, she is feeling much better. Tolerating oral fluids after Zofran and fluids. Pelvic ultrasound shows single live intrauterine with a subchorionic hemorrhage, which I suspect is incidental finding. My suspicion is that she has viral gastroenteritis on top of her . Was prescribed Zofran and I think she is safe to be discharged home with close outpatient follow-up or returning if worse, she is comfortable with that plan and left in very well-appearing condition. ED Disposition - Plan for ED Patient: Disposition: Home or Assisted Living Diagnosis: Gastroenteritis, Abdominal pain, diffuse, Abdominal pain during in first trimester Instructions: GASTROENTERITIS, Viral (6y-Adult), ABDOMINAL PAIN, Early Prescriptions: Ondansetron [Zofran] 8 mg PO Q8H PRN #12 tab PRN Reason: Nausea/Vomiting Transmission Status: Pending to [id number] Referrals: Katya Sutherland MD [Primary Care Provider] - 3-5 Days (and your OB)
[2018-12-18 23:18] VITALS: BP 126/57; PULSE 74; RESP 15; O2SAT 98
== END 2018-12-18 23:19 | disposition home or self-care (01) ==
PROVIDERS: Emergency Provider Emergency Medicine; Family Provider Internal Medicine; PCP Internal Medicine
DX: O98.511 Other viral diseases complicating pregnancy, first trimester (principal); K52.9 Noninfective gastroenteritis and colitis, unspecified; O20.8 Other hemorrhage in early pregnancy; O24.911 Unspecified diabetes mellitus in pregnancy, first trimester; O34.81 Maternal care for other abnormalities of pelvic organs, first trimester; N83.202 Unspecified ovarian cyst, left side; O99.211 Obesity complicating pregnancy, first trimester; E66.9 Obesity, unspecified; Z3A.08 8 weeks gestation of pregnancy; Z87.19 Personal history of other diseases of the digestive system; Z90.49 Acquired absence of other specified parts of digestive tract; Z79.4 Long term (current) use of insulin; Z79.84 Long term (current) use of oral hypoglycemic drugs
CPT/HCPCS: 76817; 80048; 80076; 81001; 83690; 84702; 84703; 85025; 96361; 96374; 96375; 99285; J7030; A4216; J2405

== ENCOUNTER → 2018-12-23 | Outpatient (CLI) | payer MEDICAID, SELFPAY ==
[2018-12-18 17:34] VITALS: BMI 42.7
--- NOTE | 2018-12-23 11:52 | EKG12_ITS ---
Test Reason : HIGH BP Blood Pressure : / mmHG Vent. Rate : 078 BPM Atrial Rate : 078 BPM P-R Int : 142 ms QRS Dur : 078 ms QT Int : 374 ms P-R-T Axes : 019 015 020 degrees QTc Int : 426 ms Normal sinus rhythm Low voltage QRS Borderline ECG Confirmed by NEO PAINTING ([id number]), video tape editor NIGEL MANCILLA ([id number]) on 12/25/2018 10:00:00 AM Referred By: Zuleyma Collado Confirmed By:NEO PAINTING
== END | disposition home or self-care (01) ==
PROVIDERS: Family Provider Internal Medicine; PCP Internal Medicine; Referring Provider Obstetrics & Gynecology; Visit Provider Obstetrics & Gynecology
DX: O09.90 Supervision of high risk pregnancy, unspecified, unspecified trimester (principal); O24.919 Unspecified diabetes mellitus in pregnancy, unspecified trimester; Z3A.00 Weeks of gestation of pregnancy not specified
CPT/HCPCS: 93005

== ENCOUNTER → 2019-02-10 11:33 | Outpatient (CLI) | payer MEDICAID, SELFPAY ==
[2019-02-10 10:37] VITALS: BMI 42.7
== END ==
PROVIDERS: Referring Provider Obstetrics & Gynecology; Visit Provider Obstetrics & Gynecology
DX: Z36.9 Encounter for antenatal screening, unspecified (principal)
CPT/HCPCS: 36415

== ENCOUNTER 2019-02-26 15:40 | Emergency (ER) | payer MEDICAID, SELFPAY ==
[2019-02-10 10:37] VITALS: BMI 42.7
[2019-02-26 15:41] VITALS: BP 119/86; PULSE 114; RESP 17; TEMP 36.6; O2SAT 98; BMI 42.4
[2019-02-26 16:20] LABS: Bedside Glucose 86 mg/dL (70-110)
[2019-02-26] MEDS: Ondansetron 4 MG/2 ML Vial IV (16:38)
[2019-02-26] MEDS: 0.9% Normal Saline 1,000 ML 1000 ML IV (16:38)
[2019-02-26 17:05] LABS: Absolute Lymphocyte Count 2.23 X10^3/uL (0.83-4.51); Absolute Neutrophil Count 9.4 X10^3/uL (2.0-7.7); Basophil# 0.03 X10^3/uL; Basophil% 0.2 % (0-1); Eosinophil# 0.07 X10^3/uL; Eosinophils% 0.6 % (0-5); Hematocrit 38.4 % (37-47); Hemoglobin 13.2 g/dL (12.0-15.0); Lymphocyte # 2.23 X10^3/ul (4.0); Lymphocyte % 17.6 % (19-41); Mean Corp Hgb Conc 34.4 g/dL (32-36); Mean Corpuscular Hgb 32.2 pg (27.0-32.0); Mean Corpuscular Volume 93.7 fL (81-99); Mean Platelet Vol. 9.3 fl (6.2-12.0); Monocyte# 0.84 X10^3/uL; Monocyte% 6.6 % (0-10); NRBC Flagged by Analyzer 0 % (0-5); Neutrophil # 9.43 X10^3/uL (2.7-7.7); Neutrophil % 74.5 % (47-70); Platelet Count 292 K/mm3 (150-450); RBC Distribution Width CV 13.4 % (11.6-14.6); RBC Distribution Width SD 45.5 fl (35.1-43.9); White Blood Count 12.7 K/mm3 (4.4-11.0)
[2019-02-26] MEDS: Acetaminophen 325 MG Tablet 650 MG PO (17:08)
[2019-02-26 17:14] LABS: Anion Gap 11 (5-15); BUN 7 mg/dL (7-18); BUN/Creat Ratio 11.9 RATIO (10-20); Calcium,Total 8.7 mg/dL (8.5-10.1); Chloride 106 mmol/L (98-107); Creatinine, Serum 0.59 mg/dL (0.55-1.02); EST Glomerular Filtration Rate 131 mL/min (>60); Est Glom Filt Rate - Afr Amer 159 mL/min (>60); Estimated Creatinine Clearance 140.51 ml/min; Glucose 67 mg/dL (74-106); Potassium 3.7 mmol/L (3.5-5.1); Sodium Level 143 mmol/L (136-145)
[2019-02-26 17:24] LABS: Bacteria 0 SEEN /hpf (None Seen); Mucous, Urine 0 SEEN /hpf (<or=2+); Red Blood Cells-Urine 0 SEEN /hpf (0-5)
[2019-02-26 17:28] LABS: Color, Urine Yellow (Yellow); Glucose, Dipstick Normal (Normal); Ketone-Dipstick Negative (Negative); Leukocyte Esterase-Dipstick 25 /ul (Negative); Nitrite-Dipstick Negative (Negative); Occult Blood-Urine Negative /ul (Negative); Protein-Dipstick Negative (Negative); Specific Gravity, Urine 1.015 (1.002-1.030); Urine Bilirubin Dipstick Negative (Negative); Urine Clarity Sl. Cloudy (Clear); Urine Urobilinogen Normal (Normal)
--- NOTE | 2019-02-26 17:35 | ED.DCSUM_ITS ---
- ER Visit Summary Date of Service: 02/26/19 Chief Complaint: [Bleeding from lip and hypoglycemia] History of Present Illness: The patient is a 28 F [presents to the emergency department referred from urgent care for evaluation in the emergency department. Patient states that she started having some bleeding from her lower lip spontaneously this morning around 11:30 AM. Patient has a history of this and normally it stops if she just apply some Vaseline to it. Patient also subsequently had some nausea and earlier today noted that her blood sugar was low at 37. Patient is a type I diabetic. She was able to drink some juice. Patient has been feeling somewhat lightheaded and near syncopal although she has not passed out. Patient is G7, P4. Patient is 18 weeks . Patient denies urinary symptoms.] Physical Examination: [HEENT-PERRLA, EOMI. Cranial nerves II through XII grossly intact. TMs clear. Mucous membranes moist. No adenopathy. Evaluation of the lower lip on the left side she has a small area of venous oozing which I suspect is from likely a superficial vein that is eroded the skin. Cardiovascular-regular rate and rhythm without murmur or ectopy Lungs-clear to auscultation, chest wall stable without crepitus or subcu emphysema Abdomen-normoactive bowel sounds, soft, nontender, no rebound or rigidity, no peritoneal signs. Extremities-intact ?4, normal range of motion, normal pulses, atraumatic] Test Results: [Fingerstick blood sugar was in the 80s. Patient had a CBC with differential showed a white blood cell count of 12.7. Hemoglobin 13, hematocrit 38, placed 292. Chemistries unremarkable. Glucose was 67 on her chemistry. heart tones were 150. Urinalysis was unremarkable.] Emergency Department Course and Treatment: [Using silver nitrate cautery I was able to easily cauterize the area of bleeding on her lip and she had good hemostasis. Patient was given a meal tray. Patient was given a liter normal same fluid bolus.] Treatment Plan: [Patient advised to follow-up with her primary care physician within next 3 to 5 days.] Disposition: [Discharged home in stable condition] Impression: [Hypoglycemia in a known diabetic on insulin Venous bleeding from the lower lip controlled with silver nitrate] This note was generated with TradingScreenation software. It may contain incorrect words, spelling, and punctuation that were not noted in review of the chart prior to signing ED Disposition - Plan for ED Patient: Referrals: Care Physician,No Primary [Primary Care Provider] -
[2019-02-26 17:40] LABS: Squamous Epithelial Cells - UA 0-5 SEEN /hpf (5-10); White Blood Cells 0-5 SEEN /hpf (0-5)
--- NOTE | 2019-02-26 17:43 | ED.DEP ---
ED Disposition - Plan for ED Patient: Instructions: Diabetic Insulin Reaction Referrals: Care Physician,No Primary [Primary Care Provider] - 3-5 Days Isaiah Calles III, MD [STAFF PHYSICIAN] - 3-5 Days
[2019-02-26 18:10] VITALS: BP 124/77; PULSE 62; RESP 15; O2SAT 97
== END 2019-02-26 18:13 | disposition home or self-care (01) ==
LOC: ED 16:21
PROVIDERS: Emergency Provider Emergency Medicine
DX: O24.012 Pre-existing type 1 diabetes mellitus, in pregnancy, second trimester (principal); E10.649 Type 1 diabetes mellitus with hypoglycemia without coma; Z79.4 Long term (current) use of insulin; O26.892 Other specified pregnancy related conditions, second trimester; R23.3 Spontaneous ecchymoses; Z3A.18 18 weeks gestation of pregnancy
CPT/HCPCS: 80048; 81001; 82962; 85025; 96361; 96374; 99285; J7030; A4216; J2405

== ENCOUNTER → 2019-03-09 15:42 | Outpatient (CLI) | payer MEDICAID, SELFPAY ==
[2019-03-09 13:39] VITALS: BMI 42.4
== END ==
PROVIDERS: Referring Provider Nurse Practitioner Women's Health; Visit Provider Nurse Practitioner Women's Health
DX: O26.899 Other specified pregnancy related conditions, unspecified trimester (principal); R10.2 Pelvic and perineal pain; Z3A.00 Weeks of gestation of pregnancy not specified
CPT/HCPCS: 87086; 87088

== ENCOUNTER 2019-03-28 09:20 | Outpatient (CLI) | payer MEDICAID, SELFPAY ==
[2019-03-09 13:39] VITALS: BMI 42.4
[2019-03-28 10:03] VITALS: BMI 44.8
[2019-03-28 10:23] LABS: Color, Urine Yellow (Yellow); Glucose, Dipstick Normal (Normal); Ketone-Dipstick Negative (Negative); Leukocyte Esterase-Dipstick Negative /ul (Negative); Mucous, Urine 0 SEEN /hpf (<or=2+); Nitrite-Dipstick Negative (Negative); Occult Blood-Urine 150 /ul (Negative); Protein-Dipstick Negative (Negative); Specific Gravity, Urine 1.005 (1.002-1.030); Urine Bilirubin Dipstick Negative (Negative); Urine Clarity Sl. Cloudy (Clear); Urine Urobilinogen Normal (Normal); White Blood Cells 0 SEEN /hpf (0-5)
[2019-03-28 10:27] LABS: Bacteria RARE /hpf (None Seen); Red Blood Cells-Urine 0-5 SEEN /hpf (0-5); Squamous Epithelial Cells - UA 0-5 SEEN /hpf (5-10)
--- NOTE | 2019-03-28 10:35 | OB.TRI.NOTE ---
- Problem List (1) with nephrolithiasis Status: Acute History of Present Illness Date of Service: 03/28/19 Was patient seen by the physician?: Yes Reason For Visit: CRAMPING History of Present Illness: 29-year-old presents with acute severe left-sided lower pelvic pain. Patient was evaluated and there was a suspicion for kidney stones therefore a CT of the abdomen pelvis was done and confirmed kidney stones bilaterally with no significant blockage. No vaginal bleeding or loss of fluid admits good movement no regular contractions cervix not dilated Allergies aspirin Allergy (Verified 03/31/19 13:56) Rash Penicillins Allergy (Verified 03/31/19 13:56) Rash ketorolac [From Toradol] Adverse Reaction (Verified 03/31/19 13:56) Other PAPER TAPE Allergy (Uncoded 03/31/19 13:56) Other RED WELTS - Pertinent Past Medical History Medical History: Past Medical History (Last Updated 03/09/19 @ 15:56 by Santa Lazcano, FELICIANO-C) (Acute) neg carrier, genetic-low risk male and AFP negative; nt normal 03/02:Repeat US 2 wk to complete anatomy Supervision of high risk , antepartum (Acute) PRR DELFINA 07/26/2019 PC Deejay Lopez [facility] and [facility]. Spouse: Hussein Obesity (Acute) encouraged healthy weight gain Diabetes mellitus (Chronic) Class C; currently on Metformin and insulin, cocare MFM Vitamin D deficiency Right hip pain Surgical History: Past Surgical History (Last Reviewed 03/09/19 @ 13:25 by Myla Prather) H/O section (Acute) x4. Plans LTCS S/P dilation and curettage Onset Date: ~09/13/17 S/P x4 S/P cholecystectomy s/p right hip surgery x6 Laboratory Studies: Laboratory Tests 03/28/19 Range/Units 10:10 Urine Color Yellow (Yellow) Urine Clarity Sl. Cloudy (Clear) Urine pH 7.0 (5.0 - 8.0) Ur Specific [place] 1.005 (1.002-1.030) Urine Protein Negative (Negative) mg/dl Urine Glucose (UA) Normal (Normal) mg/dl Urine Ketones Negative (Negative) mg/dl Urine Occult Blood 150 H (Negative) /ul Urine Nitrite Negative (Negative) Urine Bilirubin Negative (Negative) mg/dL Urine Urobilinogen Normal (Normal) mg/dl Ur Leukocyte Esterase Negative (Negative) /ul Urine RBC 0-5 SEEN (0-5) /hpf Urine WBC 0 SEEN (0-5) /hpf Ur Squamous Epith Cells 0-5 SEEN (5-10) /hpf Urine Bacteria RARE (None Seen) /hpf Urine Mucus 0 SEEN (<or=2+) /hpf Review of Systems Constitutional: Denies: Fever, Weakness Cardiovascular: Denies: Chest Pain Respiratory: Denies: Cough Gastrointestinal: Reports: Abdominal Pain, Nausea, Vomiting. Denies: Diarrhea Genitourinary: Denies: Dysuria Physical Exam General: Alert, Oriented x3 Cardiovascular: Regular rate, Regular Rhythm Lungs: Clear to auscultation Abdomen: Soft, Gravid, Tender NST - FHR Rate Baby A Baseline: 150 Uterine Activity:: No regular contractions Impression/Plan 29-year-old with nephrolithiasis and Recommend fluids and pain control. Recommend antibiotics to prevent superinfection pippa fox Multi Select Codes - Visit Charges Office Visit/Consults: [id number] OV L3 Est
--- NOTE | 2019-03-28 10:56 | CT_ITS ---
STUDY: CT ABDOMEN AND PELVIS WITH CONTRAST REASON FOR EXAM: Female, 29 years old. . Left-sided pain RADIATION DOSAGE (If Supplied By Facility): CTDIvol = ( 18.23 ) mGy, DLP = ( 1810.99 ) mGycm TECHNIQUE: Transaxial images were obtained from the dome of the diaphragm to the symphysis pubis without oral contrast. 100CC ml of Isovue 300 contrast was administered. Sagittal and coronal images were reconstructed. Individualized dose optimization techniques were used for this CT. COMPARISON: 09/12/2018 FINDINGS: The visualized lung bases are clear. The visualized portions of the heart and pericardium are within normal limits. The patient is status post cholecystectomy. The liver is within normal limits. There are no suspicious hepatic lesions. The spleen is normal in size. The pancreas is within normal limits. The adrenal glands are within normal limits. There are bilateral subcentimeter nonobstructing renal collecting system stones, measuring up to 3 mm. There is a 6 x 3 mm stone in the left proximal ureter with mild left hydronephrosis. There are no right ureteral stones. There is mild right hydronephrosis. There are no focal renal lesions. Normal visualized stomach. There is no bowel obstruction or inflammation. The appendix is visualized and appears normal. The aorta is normal in caliber. There is no abdominal or pelvic free air, free fluid, fluid collection or lymphadenopathy. There is a gravid uterus noted. There are no destructive osseous lesions. CT/Abdomen/Pelvis W IV Cont ONLY IMPRESSION: 6 x 3 mm stone in the left proximal ureter with mild left hydronephrosis. Mild right hydronephrosis which is likely due to mass effect from the uterus. Bilateral subcentimeter nonobstructing renal collecting system stones. No right ureteral stones. No bowel obstruction or inflammation. Normal appendix. Gravid uterus. Electronically Signed: Paulie Multani, at 12:05 EDT Tel , Service support ,
[2019-03-28 11:11] LABS: Absolute Lymphocyte Count 2.12 X10^3/uL (0.83-4.51); Basophil# 0.03 X10^3/uL; Basophil% 0.2 % (0-1); Eosinophil# 0.11 X10^3/uL; Eosinophils% 0.8 % (0-5); Hematocrit 35.4 % (37-47); Hemoglobin 12.6 g/dL (12.0-15.0); Lymphocyte # 2.12 X10^3/ul (4.0); Lymphocyte % 16.1 % (19-41); Mean Corp Hgb Conc 35.6 g/dL (32-36); Mean Corpuscular Volume 92.7 fL (81-99); Monocyte# 0.83 X10^3/uL; Monocyte% 6.3 % (0-10); NRBC Flagged by Analyzer 0 % (0-5); Neutrophil # 9.98 X10^3/uL (2.7-7.7); Neutrophil % 76.1 % (47-70); Platelet Count 278 K/mm3 (150-450); RBC Distribution Width CV 13.6 % (11.6-14.6); RBC Distribution Width SD 45.8 fl (35.1-43.9); Red Blood Count 3.82 M/mm3 (4.2-5.4); White Blood Count 13.1 K/mm3 (4.4-11.0)
[2019-03-28 11:24] LABS: Fibrinogen 532 mg/dl (203-444)
[2019-03-28] MEDS: Ondansetron 8 MG Tablet PO (11:30)
[2019-03-28] MEDS: oxyCODONE 5 MG Tablet PO ×3 (11:30→13:37)
[2019-03-28 11:34] LABS: Anion Gap 9 (5-15); BUN 7 mg/dL (7-18); BUN/Creat Ratio 17.5 RATIO (10-20); Calcium,Total 8.7 mg/dL (8.5-10.1); Chloride 107 mmol/L (98-107); EST Glomerular Filtration Rate 203 mL/min (>60); Est Glom Filt Rate - Afr Amer 245 mL/min (>60); Estimated Creatinine Clearance 205.44 ml/min; Glucose 70 mg/dL (74-106); Potassium 3.6 mmol/L (3.5-5.1); Sodium Level 138 mmol/L (136-145)
--- NOTE | 2019-03-30 14:58 | NURSING ---
THIS RN CALLED PT TO CHECK ON ARM S/P EXTRAVASATION. PT STS ARM IS FINE. NO TROUBLE AT ALL.
== END 2019-03-28 13:58 | disposition home or self-care (01) ==
LOC: WPOUT 09:27 → OBT 09:30
PROVIDERS: Referring Provider Obstetrics & Gynecology; Visit Provider Obstetrics & Gynecology
DX: O26.899 Other specified pregnancy related conditions, unspecified trimester (principal); R25.2 Cramp and spasm; O34.219 Maternal care for unspecified type scar from previous cesarean delivery; O24.319 Unspecified pre-existing diabetes mellitus in pregnancy, unspecified trimester; E11.9 Type 2 diabetes mellitus without complications; Z79.4 Long term (current) use of insulin; Z3A.00 Weeks of gestation of pregnancy not specified
CPT/HCPCS: 36415; 59025; 59050; 74177; 80048; 81001; 85025; 85384; 87086; 87088; 99218; Q9967; G0378

== ENCOUNTER 2019-03-31 13:41 | Emergency (ER) | payer MEDICAID, SELFPAY ==
[2019-03-31 13:42] VITALS: BP 156/84; PULSE 129; RESP 14; TEMP 36.8; O2SAT 98; BMI 43.8
[2019-03-31] MEDS: 0.9% Normal Saline 1,000 ML 1000 ML IV (14:38)
[2019-03-31] MEDS: Ondansetron 4 MG/2 ML Vial IV (14:39)
[2019-03-31] MEDS: Morphine 4 MG/ML Syringe IV (14:39)
--- NOTE | 2019-03-31 14:49 | ED.RN ---
UNDER REQUEST OF DR EDITH HERNANDEZ CALLED. DR ALDANA'S RECOMMENDATION WAS TO BE EVALUATED IN THE ED WITH CONSULT TO DR PERRY. Elsie SIMMONS, RN [id number]
[2019-03-31 15:02] LABS: Absolute Neutrophil Count 7.2 X10^3/uL (2.0-7.7); Basophil# 0.03 X10^3/uL; Basophil% 0.3 % (0-1); Eosinophil# 0.14 X10^3/uL; Eosinophils% 1.4 % (0-5); Hematocrit 35.1 % (37-47); Hemoglobin 12.3 g/dL (12.0-15.0); Lymphocyte % 18.8 % (19-41); Mean Corpuscular Volume 94.1 fL (81-99); Mean Platelet Vol. 9.5 fl (6.2-12.0); Monocyte% 7.9 % (0-10); NRBC Flagged by Analyzer 0 % (0-5); Neutrophil # 7.18 X10^3/uL (2.7-7.7); Neutrophil % 70.9 % (47-70); Platelet Count 269 K/mm3 (150-450); RBC Distribution Width CV 13.8 % (11.6-14.6); RBC Distribution Width SD 46.7 fl (35.1-43.9); Red Blood Count 3.73 M/mm3 (4.2-5.4); White Blood Count 10.1 K/mm3 (4.4-11.0)
[2019-03-31 15:12] LABS: BUN 6 mg/dL (7-18); Creatinine, Serum 0.56 mg/dL (0.55-1.02); EST Glomerular Filtration Rate 137 mL/min (>60); Estimated Creatinine Clearance 146.74 ml/min; Glucose 142 mg/dL (74-106)
[2019-03-31 15:13] LABS: AST(SGOT) 16 U/L (15-37); Alanine Aminotransfer ALT/SGPT 25 U/L (13-56); Albumin, Serum 2.7 g/dL (3.2-5.0); Alkaline Phosphatase 84 U/L (45-117); Anion Gap 9 (5-15); BUN/Creat Ratio 10.6 RATIO (10-20); Bilirubin, Direct 0.13 mg/dL (0.00-0.30); Calcium,Total 9.1 mg/dL (8.5-10.1); Chloride 108 mmol/L (98-107); Est Glom Filt Rate - Afr Amer 165 mL/min (>60); Lipase 57 U/L (73-393); Potassium 3.2 mmol/L (3.5-5.1); Protein, Total 6.7 g/dL (6.4-8.2); Sodium Level 139 mmol/L (136-145)
[2019-03-31 15:55] LABS: Red Blood Cells-Urine 0 SEEN /hpf (0-5)
[2019-03-31 15:56] LABS: Color, Urine Yellow (Yellow); Glucose, Dipstick Normal (Normal); Ketone-Dipstick 5 mg/dl (Negative); Leukocyte Esterase-Dipstick 25 /ul (Negative); Nitrite-Dipstick Negative (Negative); Occult Blood-Urine 10 /ul (Negative); Protein-Dipstick 15 mg/dl (Negative); Specific Gravity, Urine 1.025 (1.002-1.030); Urine Bilirubin Dipstick Negative (Negative); Urine Clarity Sl. Cloudy (Clear); Urine Urobilinogen Normal (Normal)
[2019-03-31 16:04] LABS: Bacteria RARE /hpf (None Seen); Mucous, Urine 1+ /hpf (<or=2+); Squamous Epithelial Cells - UA 0-5 SEEN /hpf (5-10); White Blood Cells 0-5 SEEN /hpf (0-5)
--- NOTE | 2019-03-31 16:09 | ED.VISSUMM ---
- ER Visit Summary Date of Service: 03/31/19 Chief Complaint: Lower quadrant abdominal discomfort History of Present Illness: The patient is a 29 yo F past medical history of diabetes and kidney stones. Currently pt. is 23 weeks Ab2 . She was diagnosed with a kidney stone over the weekend. She is placed on Percocet for pain. She was CAT scan at that time. She does complaining of lower abdominal pain. Is not specific to the left side. She denies any fever or chills. No dysuria. No gross hematuria. No diarrhea nor constipation . Physical Examination: Young female no acute distress vital signs are stable and afebrile. HEENT exam unremarkable. Neck nontender. Lungs clear to auscultation bilaterally. Heart regular rhythm rate about 110 no murmur. Abdomen is soft nontender normal bowel sounds no peritoneal signs. She points to left lower quadrant pain but is not reproducibly tender. The right upper muscle and all signs are unremarkable. No signs of obstruction. No masses. No hernias. Positive bowel sounds. All 4 extremities. Back nontender. Neurologically awake and alert. No focal deficits. Test Results: CBC normal white count 10. Hemoglobin 12. No bands. Electrolytes unremarkable see potassium 3.2. Normal creatinine gap. Discharge liver enzymes normal. Lipase normal. UA normal. heart tones positive to 120. She has previously for this had ultrasound showing a single live IUP. Emergency Department Course and Treatment: Treated with IV morphine Jenkins. On repeat exam she is doing better. She feels condyle being discharged home. She has an appointment to see the urologist Dr. Montoya in 2 days. Treatment Plan: She has Percocet for pain. I will write her for Zofran. Follow-up with her urologist as scheduled. Disposition: Discharge Impression: Abdominal pain Acute left ureteral calculi at 23 weeks This note was generated with Scrippedation software. It may contain incorrect words, spelling, and punctuation that were not noted in review of the chart prior to signing ED Disposition - Plan for ED Patient: Referrals: Care Physician,No Primary [Primary Care Provider] -
[2019-03-31 16:11] VITALS: RESP 16
--- NOTE | 2019-03-31 16:19 | ED.DEP ---
ED Disposition - Plan for ED Patient: Disposition: Home or Assisted Living Instructions: KIDNEY STONE w/ Colic Prescriptions: Ondansetron [Zofran Odt] 4 mg PO Q8H PRN PRN #10 tab PRN Reason: Nausea Prescription Printed Referrals: Elizabeth Montoya MD [STAFF PHYSICIAN] - 2 Days Additional Instructions: Fluids and rest. Usual Percocet for pain. Zofran as needed for nausea. Follow Up with your urologist on
[2019-03-31 16:22] VITALS: BP 117/70; PULSE 87; RESP 16; TEMP 36.8; O2SAT 97
--- NOTE | 2019-03-31 16:29 | ED.RN ---
REVIEWED D/C INSTRUCTIONS, FOLLOW UP CARE, PRESCRIPTION, AND S/S THAT WOULD WARRANT A RETURN TO THE ED WITH PT. PT VERBALIZED AN UNDERSTANDING AND DENIES FURTHER QUESTIONS FOR THIS RN. PT SKIN P/W/D, RESP EVEN AND UNLABORED, PT A&O X 3, NO DISTRESS NOTED. PT AMBULATED OUT OF ED, GAIT STEADY.
== END 2019-03-31 16:30 | disposition home or self-care (01) ==
PROVIDERS: Emergency Provider Emergency Medicine
DX: O26.892 Other specified pregnancy related conditions, second trimester (principal); N20.1 Calculus of ureter; Z3A.23 23 weeks gestation of pregnancy; O24.912 Unspecified diabetes mellitus in pregnancy, second trimester
CPT/HCPCS: 80048; 80076; 81001; 83690; 85025; 96361; 96374; 96375; 99284; J7030; A4216; J2405

== ENCOUNTER 2019-04-07 12:37 | Day surgery (SDC) | payer MEDICAID, SELFPAY ==
[2019-04-06 11:55] VITALS: BMI 43.8
[2019-04-07] VITALS (7 sets, daily range): BP systolic 113–143; BP diastolic 60–128; PULSE 75–124; RESP 16–28; TEMP 36.7–36.9; O2SAT 94–98; BMI 44.4
[2019-04-07 13:26] LABS: Bedside Glucose 89 mg/dL (70-110)
[2019-04-07] MEDS: Lactated Ringers 1,000 ML 100 ML IV (13:39)
[2019-04-07] MEDS: Cefazolin 2 GM in 0.9% Normal Saline 100 ML IV (15:09)
--- NOTE | 2019-04-07 16:13 | SUR.PHASEI ---
Meri BOSWELL from [facility] to assess FHT. FHT 130
--- NOTE | 2019-04-07 16:13 | PCM.OPRPT ---
Problem List (1) Left ureteral calculus Status: Acute (2) with nephrolithiasis Status: Acute Report of Operation Date of Procedure: 04/07/19 Pre-Operative Diagnosis: left ureteral calculus Post-Operative Diagnosis: same Surgery/Procedure Performed:: cystoscopy, left ureteroscopy, left ureteral stent insertion. Description of Surgical Findings:: Narrowed left ureter, unable to gain access to the ureteral calculus. Left ureteral stent inserted. Type of Anesthesia:: General Description of Procedure: The patient is a 29-year-old female who is 24 weeks presented to the office last week with a left ureteral calculus. She failed conservative management with medication, and presented to the office in follow-up yesterday. She was having nausea and vomiting and uncontrolled pain with sweating. Informed consent was obtained and she agreed to proceed with surgical intervention including ureteroscopy, laser lithotripsy and stent insertion. The baby was monitored in the preoperative area and Dopplers appeared to show heart rate in normal range. She was taken to the operating room and placed in the operating room table. Anesthesia monitored the head, neck, airway, IV access and vital signs throughout the case. Once anesthesia was appropriately administered the patient was placed into dorsal lithotomy position and was prepped and draped in usual sterile fashion. A cystoscope was inserted through the urethra under direct visualization of the bladder was drained. The left ureteral orifice was identified and two 0.035 glide wires were inserted without difficulty into the left ureteral orifice and into the renal pelvis. A 1 shot fluoroscopy confirmed correct positioning of the wire. An attempt was made at passage of the flexible ureteroscope over 1 of the 0.035 glide wires. The scope was able to be inserted approximately 2 to 3 cm into the distal left ureter. I was not able to pass the scope any further and then this in a safe fashion. The decision was then made to place a left ureteral stent. A 6 Micronesian 24 stent was passed over the wire and into the renal pelvis. There was good curling in the urinary bladder. The patient's bladder was emptied and the case was terminated. The patient was taken to the recovery room in good condition. Grafts/Implants Used: [id number] stent - Complications none - Admit VTE Documentation VTE Present on Admission: Yes VTE Mechan Device Prophylaxis: SCD's VTE Pharm Prophylaxis ordered?: No Reason prophylaxis not ordered:: Procedure Not Indicated
--- NOTE | 2019-04-07 16:21 | DCINST_ITS ---
Discharge Diet: No Restrictions Discharge Activity: May not drive while taking narcotic pain medications. Call your doctor if you observe: Fever of 101 or Higher, Inability to urinate, Inability to have a bowel movement, Shortness of breath, Chest pain, Calf discomfort, Uncontrolled pain Allergies/Adverse Reactions: Allergies aspirin Allergy (Verified 04/07/19 12:55) Rash Penicillins Allergy (Verified 04/07/19 12:55) Rash ketorolac [From Toradol] Adverse Reaction (Verified 04/07/19 12:55) Other PAPER TAPE Allergy (Uncoded 04/07/19 12:55) Other RED WELTS Medications to take at Discharge ergocalciferol (vitamin D2) 50,000 unit capsule 50,000 unit PO OLSON 06/13/18 famotidine 40 mg tablet 40 mg PO DAILY PRN 06/13/18 metoclopramide 10 mg tablet 10 mg PO TID PRN #30 tab 02/10/19 promethazine 12.5 mg tablet 12.5 mg PO Q6H PRN #120 tab 02/10/19 Insulin Lispro 18 units SUBCUT QHS 02/26/19 Insulin NPH Human Isophane [Humulin N] 24 units SUBCUT DAILY 02/26/19 Nitrofurantoin Monohyd/M-Cryst [Macrobid 100 mg Capsule] 100 mg PO BID #14 cap 03/28/19 Ranitidine HCl 150 mg PO BID 03/28/19 metFORMIN HCl [Glucophage] 1,000 mg PO BIDCM 03/28/19 Insulin Lispro [Humalog] 16 unit SQ DAILY 03/31/19 Insulin NPH Human [Humulin N Pen] 18 units SUBCUT QHS 03/31/19 Albuterol IH (ProAir) [Proair Hfa] 1 - 2 puff INHALATION Q6H PRN PRN 04/06/19 Insulin Lispro [Humalog] 8 unit SUBCUT LUNCH 04/06/19 Ondansetron [Zofran] 8 mg PO Q8H PRN #30 tab 04/07/19 Oxycodone HCl/Acetaminophen [Percocet 5-325] 1 - 2 tab PO Q4H PRN PRN 7 Days #28 tab 04/07/19 The following prescriptions were given: Oxycodone HCl/Acetaminophen [Percocet 5-325] 1 - 2 tab PO Q4H PRN PRN 7 Days #28 tab PRN Reason: Moderate-Severe pain Prescription Printed Ondansetron [Zofran] 8 mg PO Q8H PRN #30 tab PRN Reason: Nausea/Vomiting Prescription Printed Primary Care Physician: Care Physician,No Primary [Primary Care Provider] - Test Results: Test results from this visit will be discussed in further detail at your follow- up appointment, if applicable. Please Follow Up With: Elizabeth Montoya MD When: call to schedule ureteroscopy stent change Proposed Discharge Date: 04/07/19
[2019-04-07] MEDS: Acetaminophen 325 MG Tablet PO (17:17)
[2019-04-07] MEDS: Ondansetron ODT 4 MG Tablet PO (17:18)
[2019-04-07] MEDS: oxyCODONE 5 MG Tablet PO (17:18)
== END 2019-04-07 18:55 | disposition home or self-care (01) ==
LOC: SDC 12:39 → AC 12:40
PROVIDERS: Referring Provider Urology; Visit Provider Urology
PROC: 0TJ98ZZ Inspection of Ureter, Via Natural or Artificial Opening Endoscopic (ICD-10-PCS; CPT 52352; principal; 2019-04-07 14:10)
DX: O99.89 Other specified diseases and conditions complicating pregnancy, childbirth and the puerperium (principal); N13.2 Hydronephrosis with renal and ureteral calculous obstruction; O99.512 Diseases of the respiratory system complicating pregnancy, second trimester; J45.909 Unspecified asthma, uncomplicated; O99.612 Diseases of the digestive system complicating pregnancy, second trimester; K21.9 Gastro-esophageal reflux disease without esophagitis; O24.912 Unspecified diabetes mellitus in pregnancy, second trimester; O99.342 Other mental disorders complicating pregnancy, second trimester; F32.9 Major depressive disorder, single episode, unspecified; Z3A.00 Weeks of gestation of pregnancy not specified; Z87.19 Personal history of other diseases of the digestive system; Z86.2 Personal history of diseases of the blood and blood-forming organs and certain disorders involving the immune mechanism; Z79.4 Long term (current) use of insulin; Z79.84 Long term (current) use of oral hypoglycemic drugs; Z79.899 Other long term (current) drug therapy
CPT/HCPCS: 00910; 52332; 76000; 82962; J7120; C2617; J2405

== ENCOUNTER 2019-04-12 08:48 | Emergency (ER) | payer MEDICAID, SELFPAY ==
[2019-04-08 08:48] VITALS: BMI 44.4
[2019-04-12 08:49] VITALS: BP 125/72; PULSE 123; RESP 16; TEMP 36.4; O2SAT 96; BMI 46.0
--- NOTE | 2019-04-12 09:05 | ED.DCSUM_ITS ---
- ER Visit Summary Date of Service: 04/12/19 Chief Complaint: Vomiting History of Present Illness: The patient is a 29 F who is 25 weeks and postop day 5 from a left ureteral stent. This was performed by Dr. Montoya for kidney stone. Patient states that she has run out of her Percocet and Zofran at 0100 today. She states she continues to have hematuria. She continues to have left flank pain. No fevers. No diarrhea. Her [employer] SPECIALIST is Dr. Collado. Physical Examination: Afebrile 125/72 heart rate 123 respirations are 16 pulse ox is 96% on room air Gen: Well-nourished well-developed morbid obesity Head: Normocephalic atraumatic Eyes: Perrl EOMI ENT: TMs clear no rhinorrhea moist mucous membranes Neck: Supple no lymphadenopathy no JVD nontender CVS: Regular rate tachycardic rhythm no murmurs normal S1-S2 Respiratory: No distress clear to auscultation bilaterally chest nontender Abdomen: Soft nontender nondistended normal bowel sounds no masses Back: Nontender Extremity: Nontender no edema Skin: Normal color no rash Neuro: alert orientated ?3 CN II-XII intact normal strength sensation Test Results: White blood cell count 12.3. Hemoglobin 11.9. Urinalysis greater than 100 red blood cells 5-10 white cells no bacteria. Negative nitrates. There was some slight ketones. Blood glucose 132. Liver enzymes normal. Emergency Department Course and Treatment: Patient received IV fluids Zofran and morphine. heart tones are 140. I spoke with Dr. Montoya and Dr. Collado. We are going to try to change her pain medication. I will write for some OxyIR as well as additional Zofran. Patient is comfortable trying this plan. This I believe is a very significantly painful condition. She is entering her third trimester with a ureteral stent. I think it is very reasonable as she has been tolerating her current level of oxycodone that we increase it for her pain control. This would most likely involve her going above the state recommended daily intake of oxycodone but in order to control her pain is necessary Impression: 1. Third trimester 2. Postoperative pain 3. Left ureterolithiasis This note was generated with [employer] software. It may contain incorrect words, spelling, and punctuation that were not noted in review of the chart prior to signing ED Disposition - Plan for ED Patient: Disposition: Home or Assisted Living Instructions: POST OP WOUND CHECK, Pain Prescriptions: Oxycodone [Oxyir] 10 mg PO Q4H PRN PRN 5 Days #60 tab PRN Reason: pain Prescription Printed Ondansetron [Zofran Odt] 4 mg PO Q6H PRN PRN #30 tab PRN Reason: Nausea Prescription Printed Referrals: Elizabeth Montoya MD [STAFF PHYSICIAN] - Keep Edy appointment
[2019-04-12 09:32] LABS: Bacteria 0 SEEN /hpf (None Seen); Mucous, Urine 0 SEEN /hpf (<or=2+)
[2019-04-12] MEDS: Morphine 4 MG/ML Syringe IV ×2 (09:32→11:06)
[2019-04-12] MEDS: 0.9% Normal Saline 1,000 ML 1000 ML IV (09:33)
[2019-04-12] MEDS: Ondansetron 4 MG/2 ML Vial IV (09:33)
[2019-04-12 09:35] LABS: Color, Urine Red (Yellow); Glucose, Dipstick Normal (Normal); Ketone-Dipstick 15 mg/dl (Negative); Leukocyte Esterase-Dipstick 500 /ul (Negative); Nitrite-Dipstick Negative (Negative); Occult Blood-Urine 250 /ul (Negative); Protein-Dipstick 100 mg/dl (Negative); Urine Bilirubin Dipstick Negative (Negative); Urine Clarity Cloudy (Clear); Urine Urobilinogen Normal (Normal); Urine pH 6.5 (5.0 - 8.0)
[2019-04-12 09:40] LABS: Red Blood Cells-Urine > 100 SEEN /hpf (0-5); Squamous Epithelial Cells - UA 0-5 SEEN /hpf (5-10); White Blood Cells 5-10 SEEN /hpf (0-5)
[2019-04-12 09:54] LABS: Absolute Lymphocyte Count 2.08 X10^3/uL (0.83-4.51); Absolute Neutrophil Count 9.3 X10^3/uL (2.0-7.7); Basophil# 0.03 X10^3/uL; Basophil% 0.2 % (0-1); Eosinophil# 0.13 X10^3/uL; Eosinophils% 1.1 % (0-5); Hematocrit 33.9 % (37-47); Hemoglobin 11.9 g/dL (12.0-15.0); Lymphocyte # 2.08 X10^3/ul (4.0); Lymphocyte % 16.9 % (19-41); Mean Corp Hgb Conc 35.1 g/dL (32-36); Mean Corpuscular Hgb 32.9 pg (27.0-32.0); Mean Corpuscular Volume 93.6 fL (81-99); Mean Platelet Vol. 9.2 fl (6.2-12.0); Monocyte# 0.74 X10^3/uL; NRBC Flagged by Analyzer 0 % (0-5); Neutrophil # 9.28 X10^3/uL (2.7-7.7); Neutrophil % 75.2 % (47-70); Platelet Count 268 K/mm3 (150-450); RBC Distribution Width SD 46.9 fl (35.1-43.9); Red Blood Count 3.62 M/mm3 (4.2-5.4); White Blood Count 12.3 K/mm3 (4.4-11.0)
[2019-04-12 10:13] LABS: ALB/GLOB Ratio 0.7 RATIO (0.9-2.4); AST(SGOT) 12 U/L (15-37); Alanine Aminotransfer ALT/SGPT 22 U/L (13-56); Albumin, Serum 2.7 g/dL (3.2-5.0); Alkaline Phosphatase 97 U/L (45-117); Anion Gap 9 (5-15); BUN 7 mg/dL (7-18); BUN/Creat Ratio 18.5 RATIO (10-20); Calcium,Total 8.9 mg/dL (8.5-10.1); Chloride 107 mmol/L (98-107); Creatinine, Serum 0.38 mg/dL (0.55-1.02); EST Glomerular Filtration Rate 216 mL/min (>60); Est Glom Filt Rate - Afr Amer 262 mL/min (>60); Estimated Creatinine Clearance 216.25 ml/min; Globulin 3.9 g/dL (2.2-4.2); Glucose 132 mg/dL (74-106); Potassium 3.5 mmol/L (3.5-5.1); Protein, Total 6.6 g/dL (6.4-8.2); Sodium Level 138 mmol/L (136-145)
[2019-04-12 11:42] VITALS: BP 123/74; PULSE 100
== END 2019-04-12 11:20 | disposition home or self-care (01) ==
PROVIDERS: Emergency Provider Emergency Medicine
DX: O99.89 Other specified diseases and conditions complicating pregnancy, childbirth and the puerperium (principal); N20.1 Calculus of ureter; Z96.0 Presence of urogenital implants; O99.212 Obesity complicating pregnancy, second trimester; E66.01 Morbid (severe) obesity due to excess calories; O24.912 Unspecified diabetes mellitus in pregnancy, second trimester; Z3A.25 25 weeks gestation of pregnancy; Z79.4 Long term (current) use of insulin; Z79.84 Long term (current) use of oral hypoglycemic drugs
CPT/HCPCS: 80053; 81001; 85025; 96361; 96374; 96375; 96376; 99283; J2405

== ENCOUNTER 2019-04-21 06:07 | Day surgery (SDC) | payer MEDICAID, SELFPAY ==
[2019-04-08 08:48] VITALS: BMI 44.4
[2019-04-21] VITALS (7 sets, daily range): BP systolic 94–127; BP diastolic 64–72; PULSE 81–100; RESP 16–18; TEMP 36.2–36.5; O2SAT 97–100; BMI 44.6
[2019-04-21] MEDS: Lactated Ringers 1,000 ML 100 ML IV (07:16)
--- NOTE | 2019-04-21 07:43 | NURSING ---
[facility] 144 at 0755
[2019-04-21] MEDS: Cefazolin 2 GM in 0.9% Normal Saline 100 ML IV (07:46)
[2019-04-21 08:06] LABS: Bedside Glucose 98 mg/dL (70-110)
--- NOTE | 2019-04-21 08:37 | DCINST_ITS ---
Discharge Diet: No Restrictions Discharge Activity: May not drive while taking narcotic pain medications. Call your doctor if you observe: Fever of 101 or Higher, Inability to urinate, Shortness of breath, Chest pain, Calf discomfort Allergies/Adverse Reactions: Allergies aspirin Allergy (Verified 04/21/19 07:03) Rash Penicillins Allergy (Verified 04/21/19 07:03) Rash ketorolac [From Toradol] Adverse Reaction (Verified 04/21/19 07:03) Other PAPER TAPE Allergy (Uncoded 04/21/19 07:03) Other RED WELTS Medications to take at Discharge ergocalciferol (vitamin D2) 50,000 unit capsule 50,000 unit PO OLSON 06/13/18 famotidine 40 mg tablet 40 mg PO DAILY PRN 06/13/18 metoclopramide 10 mg tablet 10 mg PO TID PRN #30 tab 02/10/19 Insulin Lispro 18 units SUBCUT 1600 02/26/19 Insulin NPH Human Isophane [Humulin N] 24 units SUBCUT 0800 02/26/19 Ranitidine HCl 150 mg PO BID 03/28/19 metFORMIN HCl [Glucophage] 1,000 mg PO BIDCM 03/28/19 Insulin Lispro [Humalog] 14 unit SQ 0800 03/31/19 Insulin NPH Human [Humulin N Pen] 20 units SUBCUT QHS 03/31/19 Insulin Lispro [Humalog] 8 unit SUBCUT LUNCH 04/06/19 Ondansetron [Zofran Odt] 4 mg PO Q6H PRN PRN #30 tab 04/12/19 Primary Care Physician: Care Physician,No Primary [Primary Care Provider] - Test Results: Test results from this visit will be discussed in further detail at your follow- up appointment, if applicable. Please Follow Up With: Elizabeth Montoya MD When: call for appt to be seen in 2 weeks Proposed Discharge Date: 04/21/19
--- NOTE | 2019-04-21 08:39 | PCM.OPRPT ---
Problem List (1) Left ureteral calculus Status: Acute (2) UTI in Status: Acute Qualifiers: Report of Operation Date of Procedure: 04/21/19 Pre-Operative Diagnosis: left ureteral calculus Post-Operative Diagnosis: same Surgery/Procedure Performed:: cystoscopy and left ureteroscopy Description of Surgical Findings:: Left ureteroscopy, no stone identified Type of Anesthesia:: General Specimen's removed: none Description of Procedure: The patient is a 29-year-old female who was in her second trimester of . She was taken to the operating room 2 weeks ago for attempted ureteroscopy laser lithotripsy, and access to the stone was unable to be obtained. She now presents for repeat surgical intervention for treatment of her stone. Informed consent was obtained. The baby was evaluated before taking the patient back to the operating room. heart rate was 144. The patient was taken to the operating room and placed on the operating room table. Anesthesia monitored the head, neck, airway, IV access and vital signs throughout the case. Once anesthesia was appropriately administered the patient was placed into dorsal lithotomy position was prepped and draped in usual sterile fashion. Cystourethroscopy was performed and the stent was identified. 2 separate 0.035 glide wires were passed into the left ureter alongside the stent. The ureteral stent was removed with graspers. One glidewire was used as a safety wire, the other one I used to insert the flexible ureteroscope over. Access was easily gained all the way to the renal pelvis. Direct visualization of the entire length of the ureter was performed. No stone was identified. Given the situation in her , I made the decision to not reinsert a ureteral stent. The patient's bladder was emptied and the case was terminated. There were no complications during the procedure. The baby was monitored in recovery. Grafts/Implants Used: none - Complications none - Admit VTE Documentation VTE Present on Admission: Yes VTE Mechan Device Prophylaxis: SCD's VTE Pharm Prophylaxis ordered?: No
[2019-04-21 09:05] LABS: Bedside Glucose 122 mg/dL (70-110)
== END 2019-04-21 10:05 | disposition home or self-care (01) ==
LOC: SDC 06:10 → AC 06:10
PROVIDERS: Referring Provider Urology; Visit Provider Urology
PROC: 0TJ98ZZ Inspection of Ureter, Via Natural or Artificial Opening Endoscopic (ICD-10-PCS; CPT 52352; principal; 2019-04-21 07:20)
DX: O99.89 Other specified diseases and conditions complicating pregnancy, childbirth and the puerperium (principal); N13.2 Hydronephrosis with renal and ureteral calculous obstruction; O13.2 Gestational [pregnancy-induced] hypertension without significant proteinuria, second trimester; O99.512 Diseases of the respiratory system complicating pregnancy, second trimester; J45.909 Unspecified asthma, uncomplicated; O26.892 Other specified pregnancy related conditions, second trimester; K21.9 Gastro-esophageal reflux disease without esophagitis; O24.912 Unspecified diabetes mellitus in pregnancy, second trimester; Z3A.00 Weeks of gestation of pregnancy not specified; Z86.2 Personal history of diseases of the blood and blood-forming organs and certain disorders involving the immune mechanism; Z87.19 Personal history of other diseases of the digestive system; Z79.4 Long term (current) use of insulin; Z79.84 Long term (current) use of oral hypoglycemic drugs; Z79.899 Other long term (current) drug therapy
CPT/HCPCS: 52310; 82962; J7120; A4216; C1769; J2405

== ENCOUNTER 2019-04-22 18:42 | Outpatient (CLI) | payer MEDICAID, SELFPAY ==
[2019-04-21 07:04] VITALS: BMI 44.6
[2019-04-22] MEDS: Lactated Ringers 1,000 ML 999 ML IV (20:08)
[2019-04-22 20:25] VITALS: BMI 45.1
[2019-04-22 20:27] LABS: Hematocrit 34.1 % (37-47); Mean Corp Hgb Conc 35.2 g/dL (32-36); Mean Corpuscular Hgb 33.1 pg (27.0-32.0); Mean Corpuscular Volume 94.2 fL (81-99); Mean Platelet Vol. 9.2 fl (6.2-12.0); Platelet Count 316 K/mm3 (150-450); RBC Distribution Width CV 13.5 % (11.6-14.6); RBC Distribution Width SD 46.2 fl (35.1-43.9); Red Blood Count 3.62 M/mm3 (4.2-5.4); White Blood Count 13.7 K/mm3 (4.4-11.0)
[2019-04-22] MEDS: Ondansetron 4 MG/2 ML Vial IV (20:30)
[2019-04-22] MEDS: HYDROmorphone 1 MG/ML Syringe IV (20:34)
[2019-04-22 20:38] LABS: ALB/GLOB Ratio 0.6 RATIO (0.9-2.4); AST(SGOT) 19 U/L (15-37); Alanine Aminotransfer ALT/SGPT 32 U/L (13-56); Albumin, Serum 2.7 g/dL (3.2-5.0); Alkaline Phosphatase 104 U/L (45-117); Anion Gap 10 (5-15); BUN 9 mg/dL (7-18); BUN/Creat Ratio 20.5 RATIO (10-20); Calcium,Total 8.7 mg/dL (8.5-10.1); Chloride 106 mmol/L (98-107); Creatinine, Serum 0.44 mg/dL (0.55-1.02); EST Glomerular Filtration Rate 182 mL/min (>60); Est Glom Filt Rate - Afr Amer 220 mL/min (>60); Estimated Creatinine Clearance 186.76 ml/min; Globulin 4.2 g/dL (2.2-4.2); Glucose 98 mg/dL (74-106); Potassium 3.7 mmol/L (3.5-5.1); Protein, Total 6.9 g/dL (6.4-8.2); Sodium Level 139 mmol/L (136-145)
[2019-04-22 21:52] VITALS: RESP 18
== END 2019-04-22 21:52 | disposition home or self-care (01) ==
LOC: WPOUT 18:53 → WP 18:53
PROVIDERS: Referring Provider Obstetrics & Gynecology; Visit Provider Obstetrics & Gynecology
DX: O09.90 Supervision of high risk pregnancy, unspecified, unspecified trimester (principal); Z3A.24 24 weeks gestation of pregnancy
CPT/HCPCS: 96361; 96374; 96375; 36415; 59050; 80053; 85027; 99218; J7120; G0378; J2405

== ENCOUNTER 2019-04-25 16:20 | Outpatient (CLI) | payer MEDICAID, SELFPAY ==
[2019-04-25 16:51] VITALS: BMI 44.0
[2019-04-25] MEDS: 0.9% Normal Saline 1,000 ML 500 ML IV (17:57)
[2019-04-25] MEDS: HYDROmorphone 1 MG/ML Syringe IV (17:59)
[2019-04-25] MEDS: proCHLORPERazine 10 MG/2 ML Vial IV (17:59)
[2019-04-25 18:06] LABS: Absolute Lymphocyte Count 2.66 X10^3/uL (0.83-4.51); Absolute Neutrophil Count 12.9 X10^3/uL (2.0-7.7); Basophil# 0.03 X10^3/uL; Basophil% 0.2 % (0-1); Eosinophil# 0.14 X10^3/uL; Eosinophils% 0.8 % (0-5); Hematocrit 36.7 % (37-47); Hemoglobin 12.8 g/dL (12.0-15.0); Lymphocyte # 2.66 X10^3/ul (4.0); Lymphocyte % 15.8 % (19-41); Mean Corp Hgb Conc 34.9 g/dL (32-36); Mean Corpuscular Hgb 32.7 pg (27.0-32.0); Mean Corpuscular Volume 93.9 fL (81-99); Mean Platelet Vol. 9.3 fl (6.2-12.0); Monocyte# 0.94 X10^3/uL; Monocyte% 5.6 % (0-10); NRBC Flagged by Analyzer 0 % (0-5); Neutrophil # 12.93 X10^3/uL (2.7-7.7); Neutrophil % 76.8 % (47-70); Platelet Count 311 K/mm3 (150-450); RBC Distribution Width CV 13.6 % (11.6-14.6); RBC Distribution Width SD 45.8 fl (35.1-43.9); Red Blood Count 3.91 M/mm3 (4.2-5.4); White Blood Count 16.8 K/mm3 (4.4-11.0)
[2019-04-25 18:25] LABS: ALB/GLOB Ratio 0.7 RATIO (0.9-2.4); AST(SGOT) 16 U/L (15-37); Alanine Aminotransfer ALT/SGPT 24 U/L (13-56); Albumin, Serum 2.9 g/dL (3.2-5.0); Alkaline Phosphatase 101 U/L (45-117); Anion Gap 11 (5-15); BUN 10 mg/dL (7-18); BUN/Creat Ratio 24.5 RATIO (10-20); Calcium,Total 9.7 mg/dL (8.5-10.1); Chloride 105 mmol/L (98-107); Creatinine, Serum 0.41 mg/dL (0.55-1.02); EST Glomerular Filtration Rate 199 mL/min (>60); Est Glom Filt Rate - Afr Amer 240 mL/min (>60); Estimated Creatinine Clearance 200.43 ml/min; Globulin 4.2 g/dL (2.2-4.2); Glucose 108 mg/dL (74-106); Potassium 3.7 mmol/L (3.5-5.1); Protein, Total 7.1 g/dL (6.4-8.2); Sodium Level 139 mmol/L (136-145)
--- NOTE | 2019-04-27 19:59 | OB.TRI.PN ---
Progress Notes Date of Service: 04/25/19 Progress Note: patient seen for abdominal pain recent kidney stone reassuring fht no contractions on toco. abominal pain in dc home PLT precautions Laboratory Studies: Laboratory Tests 04/25/19 04/25/19 Range/Units 17:50 17:50 WBC 16.8 H (4.4-11.0) K/mm3 RBC 3.91 L (4.2-5.4) M/mm3 Hgb 12.8 (12.0-15.0) g/dL Hct 36.7 L (37-47) % MCV 93.9 (81-99) fL MCH 32.7 H (27.0-32.0) pg MCHC 34.9 (32-36) g/dL RDW Std Deviation 45.8 H (35.1-43.9) fl RDW Coeff of Paty 13.6 (11.6-14.6) % Plt Count 311 (150-450) K/mm3 MPV 9.3 (6.2-12.0) fl Immature Gran % (Auto) 0.800 (0.0-0.9) % Neut % (Auto) 76.8 H (47-70) % Lymph % (Auto) 15.8 L (19-41) % [place] % (Auto) 5.6 (0-10) % Eos % (Auto) 0.8 (0-5) % Baso % (Auto) 0.2 (0-1) % Absolute Neuts (auto) 12.9 H (2.0-7.7) X10^3/uL Absolute Lymphs (auto) 2.66 (0.83-4.51) X10^3/uL Nucleated RBC % 0 (0-5) % Sodium 139 (136-145) mmol/L Potassium 3.7 (3.5-5.1) mmol/L Chloride 105 (98-107) mmol/L Carbon Dioxide 23.0 (21.0-32.0) mmol/L Anion Gap 11 (5-15) BUN 10 (7-18) mg/dL Creatinine 0.41 L (0.55-1.02) mg/dL Estim Creat Clear Calc 200.43 ml/min Est GFR (MDRD) Af Amer 240 (>60) mL/min Est GFR (MDRD) Non-Af 199 (>60) mL/min BUN/Creatinine Ratio 24.5 H (10-20) RATIO Glucose 108 H (74-106) mg/dL Calcium 9.7 (8.5-10.1) mg/dL Total Bilirubin 0.80 (0.20-1.00) mg/dL AST 16 (15-37) U/L ALT 24 (13-56) U/L Alkaline Phosphatase 101 (45-117) U/L Total Protein 7.1 (6.4-8.2) g/dL Albumin 2.9 L (3.2-5.0) g/dL Globulin 4.2 (2.2-4.2) g/dL Albumin/Globulin Ratio 0.7 L (0.9-2.4) RATIO Multi Select Codes - Urinary/Genital Urinary/Genital CPT Codes: 65723-20 non-stress test Interp
== END 2019-04-25 19:07 | disposition home or self-care (01) ==
LOC: WPOUT 16:34 → WP 16:34
PROVIDERS: Visit Provider Obstetrics & Gynecology
DX: O26.899 Other specified pregnancy related conditions, unspecified trimester (principal); R10.9 Unspecified abdominal pain; Z3A.00 Weeks of gestation of pregnancy not specified; Z87.442 Personal history of urinary calculi
CPT/HCPCS: 96360; 36415; 59025; 59050; 80053; 85025; 99218; J7030; G0378

== ENCOUNTER 2019-05-31 10:30 | Outpatient (CLI) | payer MEDICAID, SELFPAY ==
[2019-05-15 13:45] VITALS: BMI 44.0
[2019-05-31 10:57] VITALS: BMI 44.4
[2019-05-31 11:45] LABS: Bedside Glucose 63 mg/dL (70-110)
[2019-05-31] MEDS: 0.9% Normal Saline 1,000 ML 999 ML IV (11:53)
[2019-05-31] MEDS: Ondansetron 4 MG/2 ML Vial IV (11:57)
[2019-05-31 12:14] LABS: Hematocrit 36.6 % (37-47); Mean Corp Hgb Conc 35.5 g/dL (32-36); Mean Corpuscular Hgb 32.9 pg (27.0-32.0); Mean Corpuscular Volume 92.7 fL (81-99); Mean Platelet Vol. 9.3 fl (6.2-12.0); Platelet Count 284 K/mm3 (150-450); RBC Distribution Width CV 13.5 % (11.6-14.6); RBC Distribution Width SD 45.3 fl (35.1-43.9); Red Blood Count 3.95 M/mm3 (4.2-5.4); White Blood Count 13.3 K/mm3 (4.4-11.0)
[2019-05-31] MEDS: HYDROmorphone 1 MG/ML Syringe IV ×2 (12:15→12:53)
[2019-05-31 12:19] LABS: ALB/GLOB Ratio 0.6 RATIO (0.9-2.4); AST(SGOT) 22 U/L (15-37); Alanine Aminotransfer ALT/SGPT 31 U/L (13-56); Albumin, Serum 2.7 g/dL (3.2-5.0); Alkaline Phosphatase 115 U/L (45-117); Anion Gap 8 (5-15); BUN 6 mg/dL (7-18); BUN/Creat Ratio 13.8 RATIO (10-20); Calcium,Total 8.2 mg/dL (8.5-10.1); Chloride 111 mmol/L (98-107); Creatinine, Serum 0.44 mg/dL (0.55-1.02); EST Glomerular Filtration Rate 184 mL/min (>60); Est Glom Filt Rate - Afr Amer 223 mL/min (>60); Estimated Creatinine Clearance 186.76 ml/min; Globulin 4.2 g/dL (2.2-4.2); Glucose 64 mg/dL (74-106); Potassium 3.2 mmol/L (3.5-5.1); Protein, Total 6.9 g/dL (6.4-8.2); Sodium Level 140 mmol/L (136-145)
[2019-05-31 12:30] LABS: Fibrinogen 642 mg/dl (203-444)
[2019-05-31 13:00] LABS: Bedside Glucose 48 mg/dL (70-110)
[2019-05-31 13:46] LABS: Bedside Glucose 55 mg/dL (70-110)
--- NOTE | 2019-05-31 20:58 | OB.TRI.NOTE ---
History of Present Illness Date of Service: 05/31/19 Was patient seen by the physician?: No Reason For Visit: R/O LABOR History of Present Illness: presents for adominal pain, no ctx no vb lof good fm. Allergies aspirin Allergy (Verified 05/31/19 11:02) Rash Penicillins Allergy (Verified 05/31/19 11:02) Rash ketorolac [From Toradol] Adverse Reaction (Verified 05/31/19 11:02) Other tachycardia PAPER TAPE Allergy (Uncoded 05/31/19 11:02) Other RED WELTS - Pertinent Past Medical History Medical History: Past Medical History (Last Reviewed 05/15/19 @ 13:44 by Ana Ivory) (Acute) neg carrier, genetic-low risk male and AFP negative; nt normal 03/02:Repeat US 2 wk to complete anatomy Supervision of high risk , antepartum (Acute) PRR DELFINA 07/26/2019 [facility]. Spouse: Hussein Obesity (Acute) encouraged healthy weight gain Diabetes mellitus (Chronic) Class C; currently on Metformin and insulin, cocare MFM Vitamin D deficiency Right hip pain Surgical History: Past Surgical History (Last Reviewed 05/15/19 @ 13:44 by Ana Ivory) H/O section (Acute) x4. Plans LT- 07/22 at 0730. History of renal stent S/P dilation and curettage Onset Date: ~09/13/17 S/P x4 S/P cholecystectomy s/p right hip surgery x6 Laboratory Studies: Laboratory Tests 05/31/19 05/31/19 05/31/19 Range/Units 13:22 12:46 11:53 WBC (4.4-11.0) K/mm3 RBC (4.2-5.4) M/mm3 Hgb (12.0-15.0) g/dL Hct (37-47) % MCV (81-99) fL MCH (27.0-32.0) pg MCHC (32-36) g/dL RDW Std Deviation (35.1-43.9) fl RDW Coeff of Paty (11.6-14.6) % Plt Count (150-450) K/mm3 MPV (6.2-12.0) fl Fibrinogen (203-444) mg/dl Sodium 140 (136-145) mmol/L Potassium 3.2 L (3.5-5.1) mmol/L Chloride 111 H (98-107) mmol/L Carbon Dioxide 21.0 (21.0-32.0) mmol/L Anion Gap 8 (5-15) BUN 6 L (7-18) mg/dL Creatinine 0.44 L (0.55-1.02) mg/dL Estim Creat Clear Calc 186.76 ml/min Est GFR (MDRD) Af Amer 223 (>60) mL/min Est GFR (MDRD) Non-Af 184 (>60) mL/min BUN/Creatinine Ratio 13.8 (10-20) RATIO Glucose 64 L (74-106) mg/dL Calcium 8.2 L (8.5-10.1) mg/dL Total Bilirubin 0.80 (0.20-1.00) mg/dL AST 22 (15-37) U/L ALT 31 (13-56) U/L Alkaline Phosphatase 115 (45-117) U/L Total Protein 6.9 (6.4-8.2) g/dL Albumin 2.7 L (3.2-5.0) g/dL Globulin 4.2 (2.2-4.2) g/dL Albumin/Globulin Ratio 0.6 L (0.9-2.4) RATIO POC Glucose 55 L 48 L (70-110) mg/dL 05/31/19 05/31/19 05/31/19 Range/Units 11:53 11:53 11:41 WBC 13.3 H (4.4-11.0) K/mm3 RBC 3.95 L (4.2-5.4) M/mm3 Hgb 13.0 (12.0-15.0) g/dL Hct 36.6 L (37-47) % MCV 92.7 (81-99) fL MCH 32.9 H (27.0-32.0) pg MCHC 35.5 (32-36) g/dL RDW Std Deviation 45.3 H (35.1-43.9) fl RDW Coeff of Paty 13.5 (11.6-14.6) % Plt Count 284 (150-450) K/mm3 MPV 9.3 (6.2-12.0) fl Fibrinogen 642 H (203-444) mg/dl Sodium (136-145) mmol/L Potassium (3.5-5.1) mmol/L Chloride (98-107) mmol/L Carbon Dioxide (21.0-32.0) mmol/L Anion Gap (5-15) BUN (7-18) mg/dL Creatinine (0.55-1.02) mg/dL Estim Creat Clear Calc ml/min Est GFR (MDRD) Af Amer (>60) mL/min Est GFR (MDRD) Non-Af (>60) mL/min BUN/Creatinine Ratio (10-20) RATIO Glucose (74-106) mg/dL Calcium (8.5-10.1) mg/dL Total Bilirubin (0.20-1.00) mg/dL AST (15-37) U/L ALT (13-56) U/L Alkaline Phosphatase (45-117) U/L Total Protein (6.4-8.2) g/dL Albumin (3.2-5.0) g/dL Globulin (2.2-4.2) g/dL Albumin/Globulin Ratio (0.9-2.4) RATIO POC Glucose 63 L (70-110) mg/dL NST - FHR Rate Baby A Baseline: 140 Variability:: Moderate Accelerations:: 15 x 15 Decelerations:: None NST Reactive:: Yes FHR Category:: Category I Uterine Activity:: none Impression/Plan 29 yo abdominal pain nl labs, cbc fibrinogen, ivfs and pain medicine given, questionable scar tissue vs recurrent nephrolithiasis? fu in ob and urogyn office Multi Select Codes - Urinary/Genital Urinary/Genital CPT Codes: 85107-24 non-stress test Interp
== END 2019-05-31 14:30 | disposition home or self-care (01) ==
LOC: WPOUT 10:53 → WP 10:54
PROVIDERS: Visit Provider Obstetrics & Gynecology
DX: O26.899 Other specified pregnancy related conditions, unspecified trimester (principal); R10.9 Unspecified abdominal pain; O99.210 Obesity complicating pregnancy, unspecified trimester; O24.919 Unspecified diabetes mellitus in pregnancy, unspecified trimester; Z79.84 Long term (current) use of oral hypoglycemic drugs; Z79.4 Long term (current) use of insulin
CPT/HCPCS: 96361; 96374; 96375; 36415; 59025; 59050; 80053; 82962; 85027; 85384; 87804; 99218; J7030; G0378; J2405

== ENCOUNTER → 2019-06-02 12:12 | Outpatient (CLI) | payer MEDICAID, SELFPAY ==
[2019-06-02 11:50] VITALS: BMI 44.4
[2019-06-02 12:45] LABS: Absolute Lymphocyte Count 2.52 X10^3/uL (0.83-4.51); Absolute Neutrophil Count 8.1 X10^3/uL (2.0-7.7); Basophil# 0.03 X10^3/uL; Basophil% 0.3 % (0-1); Eosinophil# 0.07 X10^3/uL; Eosinophils% 0.6 % (0-5); Hematocrit 39.1 % (37-47); Hemoglobin 13.8 g/dL (12.0-15.0); Lymphocyte # 2.52 X10^3/ul (4.0); Lymphocyte % 21.6 % (19-41); Mean Corp Hgb Conc 35.3 g/dL (32-36); Mean Corpuscular Hgb 32.9 pg (27.0-32.0); Mean Corpuscular Volume 93.3 fL (81-99); Mean Platelet Vol. 9.3 fl (6.2-12.0); Monocyte# 0.84 X10^3/uL; Monocyte% 7.2 % (0-10); NRBC Flagged by Analyzer 0 % (0-5); Neutrophil # 8.09 X10^3/uL (2.7-7.7); Neutrophil % 69.5 % (47-70); Platelet Count 283 K/mm3 (150-450); RBC Distribution Width CV 13.6 % (11.6-14.6); RBC Distribution Width SD 45.8 fl (35.1-43.9); Red Blood Count 4.19 M/mm3 (4.2-5.4); White Blood Count 11.6 K/mm3 (4.4-11.0)
[2019-06-02 13:00] LABS: ALB/GLOB Ratio 0.7 RATIO (0.9-2.4); AST(SGOT) 18 U/L (15-37); Alanine Aminotransfer ALT/SGPT 28 U/L (13-56); Albumin, Serum 2.9 g/dL (3.2-5.0); Alkaline Phosphatase 115 U/L (45-117); Anion Gap 8 (5-15); BUN 6 mg/dL (7-18); BUN/Creat Ratio 9.9 RATIO (10-20); Calcium,Total 8.8 mg/dL (8.5-10.1); Chloride 112 mmol/L (98-107); Creatinine, Serum 0.61 mg/dL (0.55-1.02); EST Glomerular Filtration Rate 125 mL/min (>60); Est Glom Filt Rate - Afr Amer 151 mL/min (>60); Globulin 4.3 g/dL (2.2-4.2); Glucose 71 mg/dL (74-106); Lipase 70 U/L (73-393); Potassium 3.7 mmol/L (3.5-5.1); Protein, Total 7.2 g/dL (6.4-8.2); Sodium Level 141 mmol/L (136-145)
== END ==
PROVIDERS: Referring Provider Obstetrics & Gynecology; Visit Provider Obstetrics & Gynecology
DX: O26.899 Other specified pregnancy related conditions, unspecified trimester (principal); R10.9 Unspecified abdominal pain; Z3A.00 Weeks of gestation of pregnancy not specified
CPT/HCPCS: 36415; 80053; 83690; 85025

== ENCOUNTER 2019-06-05 14:37 | Outpatient (CLI) | payer MEDICAID, SELFPAY ==
[2019-06-05 14:40] VITALS: BMI 44.4
[2019-06-05 15:06] VITALS: BMI 44.7
--- NOTE | 2019-06-05 20:31 | OB.TRI.PN_ITS ---
Progress Notes Date of Service: 06/05/19 Progress Note: FHT: 150 Moderate variability reactive no decelerations category I tracing [place]: no Contractions - Problem List (1) H/O section Status: Acute Comment: x4. Plans LTCS- 07/22 at 0730. (2) Status: Acute Qualifiers: Comment: neg carrier, genetic-low risk male and AFP negative; nt normal. Signed Title 03/02:Repeat US 2 wk to complete anatomy (3) Supervision of high risk , antepartum Status: Acute Comment: PRR DELFINA 07/26/2019 [facility]. Spouse: Hussein (4) Obesity Status: Acute Qualifiers: Comment: encouraged healthy weight gain; 2x weekly testing after 32 weeks delivery at 39 weeks; weekly BPP with MFM weekly NST with [facility] (5) Diabetes mellitus Status: Chronic Qualifiers: Comment: Class C; currently on Metformin and insulin, cocare MFM Multi Select Codes - Urinary/Genital Urinary/Genital CPT Codes: 88867-96 non-stress test Interp
== END 2019-06-05 15:55 | disposition home or self-care (01) ==
LOC: WPOUT 14:41 → OBT 14:42
PROVIDERS: Referring Provider Obstetrics & Gynecology; Visit Provider Obstetrics & Gynecology
DX: O24.919 Unspecified diabetes mellitus in pregnancy, unspecified trimester (principal); O09.90 Supervision of high risk pregnancy, unspecified, unspecified trimester; O99.210 Obesity complicating pregnancy, unspecified trimester; E66.9 Obesity, unspecified; O34.219 Maternal care for unspecified type scar from previous cesarean delivery; Z3A.00 Weeks of gestation of pregnancy not specified; Z79.4 Long term (current) use of insulin; Z79.84 Long term (current) use of oral hypoglycemic drugs
CPT/HCPCS: 59025; 59050; 99218; G0378

== ENCOUNTER 2019-06-11 14:25 | Outpatient (CLI) | payer MEDICAID, SELFPAY ==
[2019-06-11 15:16] LABS: Bacteria 0 SEEN /hpf (None Seen); Mucous, Urine 0 SEEN /hpf (<or=2+); Red Blood Cells-Urine 0 SEEN /hpf (0-5)
[2019-06-11 15:17] LABS: Absolute Lymphocyte Count 1.85 X10^3/uL (0.83-4.51); Absolute Neutrophil Count 8.3 X10^3/uL (2.0-7.7); Basophil# 0.01 X10^3/uL; Basophil% 0.1 % (0-1); Eosinophil# 0.08 X10^3/uL; Eosinophils% 0.7 % (0-5); Hematocrit 35.5 % (37-47); Hemoglobin 12.6 g/dL (12.0-15.0); Lymphocyte # 1.85 X10^3/ul (4.0); Lymphocyte % 16.6 % (19-41); Mean Corp Hgb Conc 35.5 g/dL (32-36); Mean Corpuscular Hgb 33.2 pg (27.0-32.0); Mean Corpuscular Volume 93.4 fL (81-99); Mean Platelet Vol. 9.2 fl (6.2-12.0); Monocyte# 0.84 X10^3/uL; Monocyte% 7.6 % (0-10); NRBC Flagged by Analyzer 0 % (0-5); Neutrophil # 8.28 X10^3/uL (2.7-7.7); Neutrophil % 74.5 % (47-70); Platelet Count 274 K/mm3 (150-450); RBC Distribution Width CV 13.8 % (11.6-14.6); RBC Distribution Width SD 46.5 fl (35.1-43.9); White Blood Count 11.1 K/mm3 (4.4-11.0)
[2019-06-11 15:19] LABS: Color, Urine Yellow (Yellow); Glucose, Dipstick Normal (Normal); Ketone-Dipstick 15 mg/dl (Negative); Leukocyte Esterase-Dipstick Negative /ul (Negative); Nitrite-Dipstick Negative (Negative); Occult Blood-Urine Negative /ul (Negative); Protein-Dipstick Negative (Negative); Specific Gravity, Urine 1.015 (1.002-1.030); Urine Bilirubin Dipstick Negative (Negative); Urine Clarity Sl. Cloudy (Clear); Urine Urobilinogen 1 mg/dl (Normal); Urine pH 6.5 (5.0 - 8.0)
[2019-06-11 15:20] VITALS: BMI 45.2
[2019-06-11 15:32] LABS: ALB/GLOB Ratio 0.6 RATIO (0.9-2.4); AST(SGOT) 16 U/L (15-37); Alanine Aminotransfer ALT/SGPT 26 U/L (13-56); Albumin, Serum 2.5 g/dL (3.2-5.0); Alkaline Phosphatase 110 U/L (45-117); Anion Gap 10 (5-15); BUN 7 mg/dL (7-18); BUN/Creat Ratio 11.6 RATIO (10-20); Calcium,Total 9.2 mg/dL (8.5-10.1); Chloride 110 mmol/L (98-107); EST Glomerular Filtration Rate 126 mL/min (>60); Est Glom Filt Rate - Afr Amer 153 mL/min (>60); Estimated Creatinine Clearance 136.96 ml/min; Globulin 4.1 g/dL (2.2-4.2); Glucose 163 mg/dL (74-106); Potassium 3.3 mmol/L (3.5-5.1); Protein, Total 6.6 g/dL (6.4-8.2); Sodium Level 140 mmol/L (136-145)
[2019-06-11 15:35] LABS: Squamous Epithelial Cells - UA 10-25 SEEN /hpf (5-10); White Blood Cells 0-5 SEEN /hpf (0-5)
[2019-06-11 15:36] LABS: Amorphous Sediment 1+ URATE
--- NOTE | 2019-06-12 00:42 | OB.TRI.PN ---
Progress Notes Date of Service: 06/11/19 Progress Note: Patient presents for triage evaluation secondary to light vaginal bleeding and abdominal discomfort she was seen by MFM yesterday and sent to triage for evaluation of at [facility] and had no significant abnormalities at that time was still feeling comfortable today so is being evaluated in triage FHT: 140 Moderate variability reactive no decelerations category I tracing [place]: No regular contractions Assessment and plan: Threatened labor cervix not dilated reactive NST, reassuring maternal and status patient discharged to home to follow-up as scheduled, lab work stable and improved. See problem list details for additional plan information. Laboratory Studies: Laboratory Tests 06/11/19 06/11/19 06/11/19 Range/Units 15:00 15:00 15:00 WBC 11.1 H (4.4-11.0) K/mm3 RBC 3.80 L (4.2-5.4) M/mm3 Hgb 12.6 (12.0-15.0) g/dL Hct 35.5 L (37-47) % MCV 93.4 (81-99) fL MCH 33.2 H (27.0-32.0) pg MCHC 35.5 (32-36) g/dL RDW Std Deviation 46.5 H (35.1-43.9) fl RDW Coeff of Paty 13.8 (11.6-14.6) % Plt Count 274 (150-450) K/mm3 MPV 9.2 (6.2-12.0) fl Immature Gran % (Auto) 0.500 (0.0-0.9) % Neut % (Auto) 74.5 H (47-70) % Lymph % (Auto) 16.6 L (19-41) % [place] % (Auto) 7.6 (0-10) % Eos % (Auto) 0.7 (0-5) % Baso % (Auto) 0.1 (0-1) % Absolute Neuts (auto) 8.3 H (2.0-7.7) X10^3/uL Absolute Lymphs (auto) 1.85 (0.83-4.51) X10^3/uL Nucleated RBC % 0 (0-5) % Sodium 140 (136-145) mmol/L Potassium 3.3 L (3.5-5.1) mmol/L Chloride 110 H (98-107) mmol/L Carbon Dioxide 20.0 L (21.0-32.0) mmol/L Anion Gap 10 (5-15) BUN 7 (7-18) mg/dL Creatinine 0.60 (0.55-1.02) mg/dL Estim Creat Clear Calc 136.96 ml/min Est GFR (MDRD) Af Amer 153 (>60) mL/min Est GFR (MDRD) Non-Af 126 (>60) mL/min BUN/Creatinine Ratio 11.6 (10-20) RATIO Glucose 163 H (74-106) mg/dL Calcium 9.2 (8.5-10.1) mg/dL Total Bilirubin 0.80 (0.20-1.00) mg/dL AST 16 (15-37) U/L ALT 26 (13-56) U/L Alkaline Phosphatase 110 (45-117) U/L Total Protein 6.6 (6.4-8.2) g/dL Albumin 2.5 L (3.2-5.0) g/dL Globulin 4.1 (2.2-4.2) g/dL Albumin/Globulin Ratio 0.6 L (0.9-2.4) RATIO Urine Color Yellow (Yellow) Urine Clarity Sl. Cloudy (Clear) Urine pH 6.5 (5.0 - 8.0) Ur Specific [place] 1.015 (1.002-1.030) Urine Protein Negative (Negative) mg/dl Urine Glucose (UA) Normal (Normal) mg/dl Urine Ketones 15 H (Negative) mg/dl Urine Occult Blood Negative (Negative) /ul Urine Nitrite Negative (Negative) Urine Bilirubin Negative (Negative) mg/dL Urine Urobilinogen 1 H (Normal) mg/dl Ur Leukocyte Esterase Negative (Negative) /ul Urine RBC 0 SEEN (0-5) /hpf Urine WBC 0-5 SEEN (0-5) /hpf Ur Squamous Epith Cells 10-25 SEEN (5-10) /hpf Amorphous Sediment 1+ URATE Urine Bacteria 0 SEEN (None Seen) /hpf Urine Mucus 0 SEEN (<or=2+) /hpf - Problem List (1) Threatened labor Status: Acute Multi Select Codes - Urinary/Genital Urinary/Genital CPT Codes: 68807-55 non-stress test Interp
== END 2019-06-11 16:35 | disposition home or self-care (01) ==
LOC: WPOUT 14:30 → OBT 14:31
PROVIDERS: Referring Provider Obstetrics & Gynecology; Visit Provider Obstetrics & Gynecology
DX: O47.00 False labor before 37 completed weeks of gestation, unspecified trimester (principal); Z3A.00 Weeks of gestation of pregnancy not specified
CPT/HCPCS: 36415; 59025; 59050; 80053; 81001; 85025; 87086; 87088; 99218; J7120; G0378

== ENCOUNTER 2019-06-15 14:21 | Emergency (ER) | payer MEDICAID, SELFPAY ==
[2019-06-15 10:36] VITALS: BMI 42.0
[2019-06-15 14:23] VITALS: BP 98/45; PULSE 124; RESP 18; TEMP 36.2; O2SAT 96; BMI 44.9
[2019-06-15 14:35] VITALS: BP 138/79; PULSE 121; RESP 20; O2SAT 96
--- NOTE | 2019-06-15 15:05 | EKG12_ITS ---
Test Reason : PALP Blood Pressure : / mmHG Vent. Rate : 118 BPM Atrial Rate : 118 BPM P-R Int : 130 ms QRS Dur : 072 ms QT Int : 316 ms P-R-T Axes : 053 018 030 degrees QTc Int : 442 ms Sinus tachycardia Otherwise normal ECG Confirmed by BOGDAN WEISS, DOUG ([id number]), market editor EVONNE JOHNSON ([id number]) on 06/19/2019 9:46:49 AM Referred By: Confirmed By:SHIRLEY MCFADDEN MD
--- NOTE | 2019-06-15 15:05 | ECHOD_ITS ---
Reason For Study: Chest Pain Procedure This was a 2D Doppler, Color Flow transthoracic echocardiogram. Exam performed portable in ED. Left Ventricle Normal size and thickness. The estimated ejection fraction is 50-55 %. Normal diastology for age. mild anteroseptal hypokinesis. Right Ventricle Normal RV size. Normal systolic function. Atria Normal left atrium. Normal right atrium. No doppler evidence for ASD. Mitral Valve There is no mitral valve stenosis. No mitral valve insufficiency. Tricuspid Valve There is no tricuspid stenosis. Unable to estimate RV systolic pressure due to inadequate jet, pulmonary artery pressure probably normal. Aortic Valve Trisinus/trileaflet aortic valve. There is no aortic stenosis. No aortic valve insufficiency. Pulmonic Valve There is no pulmonic valvular stenosis. Trivial pulmonic valve insufficiency. Great Vessels Normal aortic root. Pericardium/Pleural No pericardial effusion. MMode/2D Measurements & Calculations LVIDd: 4.7 cm IVSd: 1.1 cm Ao root diam: 2.6 cm LVIDs: 3.5 cm LVPWd: 1.2 cm RVDd: 2.8 cm FS: 24.0 % LAV(MOD-bp): 30.3 ml LVAd ap4: 30.6 cm2 SV(MOD-sp4): 49.2 ml LAV(MOD-bp) Indexed: 12.8 ml/m2 EDV(MOD-sp4): 96.3 ml LAV(MOD-sp2): 33.9 ml EDV(sp4-el): 99.2 ml LAV(MOD-sp4): 22.7 ml LVAs ap4: 19.3 cm2 ESV(MOD-sp4): 47.1 ml ESV(sp4-el): 47.9 ml EF(MOD-sp4): 51.1 % EF(sp4-el): 51.7 % SV(sp4-el): 51.2 ml LA A4 area: 12.4 cm2 LA dimension(2D): 3.9 cm RA A4 area: 11.2 cm2 Doppler Measurements & Calculations MV E max remington: 48.1 cm/sec Lat Peak E' [place]: 13.2 cm/sec Med Peak E' [place]: 8.3 cm/sec MV A max remington: 69.6 cm/sec E/E' lat: 3.7 E/E' med: 5.8 MV E/A: 0.69 Ao V2 max: 143.0 cm/sec LV V1 max: 98.0 cm/sec PA V2 max: 98.5 cm/sec Ao max P.2 mmHg LV V1 max P.8 mmHg Ao V2 mean: 98.9 cm/sec Ao mean P.4 mmHg Ao V2 VTI: 18.3 cm Interpretation Summary The estimated ejection fraction is 50-55 %. Normal diastology for age. mild anteroseptal hypokinesis Ordering Physician: Venu Romero Performed By: Lindsey Zayas RDCS, RVT
--- NOTE | 2019-06-15 15:06 | ED.DCSUM_ITS ---
History of Present Illness Chief Complaint: Palpitations Informant: Patient Narrative: Patient presents the emergency room after being referred to us by cardiology. She states that she is 34 weeks (G7, P4 Ab2). She states that she sees Dr. Collado for OB as well as seen in [facility] [place]. She states she has diabetes and takes metformin as well as insulin. Her blood sugars have been controlled 74 fasting this am and 82 after breakfast today. She states that last Saturday she woke feeling a sharp pinching sensation in the center of her chest. It is constant. She also states there is a sensation of someone sitting on her. She states that she went to [place] was sent to [facility] emergency department where she states she had an EKG and IV fluids and was sent home. She followed up today with OB and was sent to cardiology. Significant leg swelling. No coronary disease that she is aware of. She denies any fevers or cough. No rhinorrhea. Past Medical History - Allergies and Home Meds Allergies/Adverse Reactions: Allergies aspirin Allergy (Verified 06/15/19 14:23) Rash Penicillins Allergy (Verified 06/15/19 14:23) Rash ketorolac [From Toradol] Adverse Reaction (Verified 06/15/19 14:23) Other tachycardia PAPER TAPE Allergy (Uncoded 06/15/19 14:23) Other RED MARCOTS Primary Care Physician: Care Physician,No Primary [Primary Care Provider] - Surgical History: - Smoking Status: Never smoker Review of Systems General: Denies: Chills, Fever, Sweats Eyes: Denies: Visual changes - bilaterally, Diplopia ENT: Denies: Rhinorrhea, Sore throat Cardiovascular: Reports: Chest pain. Denies: Palpitations Respiratory: Reports: Dyspnea, Dyspnea on exertion. Denies: Cough Gastrointestinal: Reports: Nausea. Denies: Abdominal pain, Vomiting, Diarrhea, Melena, Hematochezia Genitourinary: Denies: Dysuria, Hematuria, Frequency Musculoskeletal: Denies: Back pain, Extremity Pain Skin: Denies: Rash, Wounds Neurological: Denies: Headache, Weakness, Numbness Psych: Reports: Anxiety. Denies: Depression, Suicidal thoughts, Suicidal ideations Endocrine: Denies: Polyuria, Polydipsia, Heat intolerance, Cold intolerance Hematologic: Denies: Easy bruising, Easy bleeding Allergy: Denies: Uticaria, Swelling of the mouth, Swelling of the tongue Physical Exam Vital Signs/Narrative: Vital Signs Temp Pulse Resp BP Pulse Ox 06/15/19 14:35 121 H 20 H 138/79 H 96 06/15/19 14:23 97.2 F L 124 H 18 98/45 L 96 Inital Vital Signs reviewed: Yes General: Well nourished, Well developed, No Acute Distress Head: Normocephalic, Atraumatic Eyes: Perrl, EOMI ENT: Moist mucous membranes, No rhinorrhea Neck: Supple, Nontender Cardiovascular: Regular rate, Regular rhythm, No murmurs, Tachycardia Respiratory: No distress, CTA bilaterally, Chest nontender Abdomen: Soft, Nontender, Nondistended, Normal bowel sounds, - - Gravid Uterus Back: Nontender, Normal Inspection Extremities: Nontender, No edema Skin: Normal color, No rash Neurological: Alert, Oriented x3, Cranial nerves II-XII grossly intact, Normal Strength, Normal Sensation Psychological: Normal affect, Normal Mood Diagnostic/Tx/Re-eval - Rhythm Strip Rhythm Strip: Sinus Tach Rate: 118 - Medical Decision Making heart tones obtained through nursing and were normal at 164. Echocardiogram was obtained and was normal. CTA of the chest was obtained. This was negative for any large embolus but certainly small emboli could be missed. There is however no right heart strain on EKG or on echo. Troponin is negative. She is not dyspneic at this time or hypoxic. Otherwise labs including sodium potassium magnesium TSH were negative. Patient will be discharged home to follow-up with her doctors. I did speak with Dr. Collado her pathologist assistant. She will call cardiology tomorrow to arrange follow-up. I Have observed patient's heart rates to be as low as 96 on the monitor. She received a liter of IV fluids while results were obtained. ED Disposition - Plan for ED Patient: Disposition: Home or Assisted Living Diagnosis: Chest pain, Third trimester Instructions: CHEST PAIN, Uncertain Cause Referrals: Afsaneh Soares MD [STAFF PHYSICIAN] - (call the office in the am to arrange follow up) Zuleyma Collado MD [STAFF PHYSICIAN] - (as scheduled)
[2019-06-15] MEDS: 0.9% Normal Saline 1,000 ML 1000 ML IV (15:15)
[2019-06-15 15:23] LABS: Absolute Lymphocyte Count 2.21 X10^3/uL (0.83-4.51); Absolute Neutrophil Count 8.9 X10^3/uL (2.0-7.7); Basophil# 0.02 X10^3/uL; Basophil% 0.2 % (0-1); Eosinophil# 0.06 X10^3/uL; Eosinophils% 0.5 % (0-5); Lymphocyte # 2.21 X10^3/ul (4.0); Lymphocyte % 18.2 % (19-41); Mean Corp Hgb Conc 35.1 g/dL (32-36); Mean Corpuscular Hgb 32.9 pg (27.0-32.0); Mean Corpuscular Volume 93.7 fL (81-99); Mean Platelet Vol. 9.1 fl (6.2-12.0); Monocyte# 0.91 X10^3/uL; Monocyte% 7.5 % (0-10); NRBC Flagged by Analyzer 0 % (0-5); Neutrophil # 8.88 X10^3/uL (2.7-7.7); Neutrophil % 73.1 % (47-70); Platelet Count 283 K/mm3 (150-450); RBC Distribution Width SD 47.7 fl (35.1-43.9); Red Blood Count 3.95 M/mm3 (4.2-5.4); White Blood Count 12.1 K/mm3 (4.4-11.0)
[2019-06-15 16:08] LABS: ALB/GLOB Ratio 0.6 RATIO (0.9-2.4); AST(SGOT) 20 U/L (15-37); Alanine Aminotransfer ALT/SGPT 26 U/L (13-56); Albumin, Serum 2.7 g/dL (3.2-5.0); Alkaline Phosphatase 115 U/L (45-117); Anion Gap 8 (5-15); BUN 8 mg/dL (7-18); BUN/Creat Ratio 13.5 RATIO (10-20); Calcium,Total 9.1 mg/dL (8.5-10.1); Chloride 111 mmol/L (98-107); Creatinine, Serum 0.59 mg/dL (0.55-1.02); EST Glomerular Filtration Rate 129 mL/min (>60); Est Glom Filt Rate - Afr Amer 156 mL/min (>60); Estimated Creatinine Clearance 139.28 ml/min; Globulin 4.2 g/dL (2.2-4.2); Glucose 115 mg/dL (74-106); Magnesium 1.6 mg/dL (1.6-2.6); Potassium 3.4 mmol/L (3.5-5.1); Protein, Total 6.9 g/dL (6.4-8.2); Sodium Level 139 mmol/L (136-145)
[2019-06-15 16:27] LABS: Thyroid Stim Hormone (TSH) 0.67 uIU/mL (0.358-3.74)
[2019-06-15 16:40] VITALS: BP 145/94; PULSE 109; RESP 18; O2SAT 99
--- NOTE | 2019-06-15 16:51 | CT_ITS ---
STUDY: CTA CHEST REASON FOR EXAM: Female, 29 years old. MID STERNAL CHEST PAIN, DYSPNEA, 34 WKS , ABD SHIELDED RADIATION DOSAGE (If Supplied By Facility): CTDIvol = ( 11.47 ) mGy, DLP = ( 435.37 ) mGycm TECHNIQUE: The examination was performed with the intravenous administration of IV 100mL Isovue-370. Post-processing of the angiographic images was performed, with multiplanar reformation and 3D reconstruction. Individualized dose optimization techniques were used for this CT. COMPARISON: None. FINDINGS: There is limited enhancement of the main pulmonary artery and right and left pulmonary arteries. There is limited enhancement of the bilateral peripheral pulmonary arteries. There is no demonstrated pulmonary embolism. Normal thoracic aorta and visualized great vessels. There is no demonstrated aortic dissection. Normal heart and pericardium. Normal mediastinum. Normal hilar regions. Normal visualized trachea and bronchi. The lungs are well expanded. Lung muniz show some interstitial edema which is consistent with patient being . Normal pleura. Normal chest wall structures. Normal osseous structures. Normal visualized upper abdomen. CT/CTA Chest W/WO Contrast IMPRESSION: No demonstrated PE, or thoracic aortic aneurysm or dissection. However, the contrast bolus within the pulmonary arteries is not optimal, and a subtle filling defect could be present and overlooked. Mild interstitial edema noted in both lung muniz, this is likely consistent with patient''s status Electronically Signed: Abdi Yu MD at 17:42 EST , Service support ,
[2019-06-15 18:08] VITALS: BP 124/74; PULSE 108; RESP 16; O2SAT 99
[2019-06-15 18:21] VITALS: BP 145/94; PULSE 102; RESP 18; O2SAT 99
== END 2019-06-15 18:22 | disposition home or self-care (01) ==
PROVIDERS: Emergency Provider Emergency Medicine
DX: O26.893 Other specified pregnancy related conditions, third trimester (principal); R07.89 Other chest pain; R06.00 Dyspnea, unspecified; R11.0 Nausea; O24.913 Unspecified diabetes mellitus in pregnancy, third trimester; Z3A.34 34 weeks gestation of pregnancy; Z79.4 Long term (current) use of insulin; Z79.84 Long term (current) use of oral hypoglycemic drugs
CPT/HCPCS: 71275; 80053; 83735; 84443; 84484; 85025; 93005; 93306; 96360; 99284; J7030; Q9967

== ENCOUNTER → 2019-06-18 10:42 | Outpatient (REF) | payer MEDICAID, SELFPAY ==
[2019-06-15 14:23] VITALS: BMI 44.9
== END ==
LOC: CVS 10:42
PROVIDERS: Referring Provider Specialist; Visit Provider Specialist
DX: R00.2 Palpitations (principal); R07.9 Chest pain, unspecified; R55 Syncope and collapse
CPT/HCPCS: 93270; 93271

== ENCOUNTER 2019-06-26 11:00 | Outpatient (CLI) | payer MEDICAID, SELFPAY ==
[2019-06-26 11:33] VITALS: BMI 45.1
[2019-06-26 11:51] LABS: Absolute Lymphocyte Count 2.16 X10^3/uL (0.83-4.51); Basophil# 0.03 X10^3/uL; Basophil% 0.2 % (0-1); Eosinophil# 0.08 X10^3/uL; Eosinophils% 0.7 % (0-5); Hematocrit 35.6 % (37-47); Hemoglobin 12.6 g/dL (12.0-15.0); Lymphocyte # 2.16 X10^3/ul (4.0); Lymphocyte % 17.6 % (19-41); Mean Corp Hgb Conc 35.4 g/dL (32-36); Mean Corpuscular Hgb 33.4 pg (27.0-32.0); Mean Corpuscular Volume 94.4 fL (81-99); Mean Platelet Vol. 9.1 fl (6.2-12.0); Monocyte% 7.3 % (0-10); NRBC Flagged by Analyzer 0 % (0-5); Neutrophil # 9.03 X10^3/uL (2.7-7.7); Neutrophil % 73.5 % (47-70); Platelet Count 289 K/mm3 (150-450); RBC Distribution Width CV 14.2 % (11.6-14.6); RBC Distribution Width SD 48.3 fl (35.1-43.9); Red Blood Count 3.77 M/mm3 (4.2-5.4); White Blood Count 12.3 K/mm3 (4.4-11.0)
[2019-06-26 11:56] LABS: Bacteria 0 SEEN /hpf (None Seen); Mucous, Urine 0 SEEN /hpf (<or=2+); Red Blood Cells-Urine 0 SEEN /hpf (0-5); White Blood Cells 0 SEEN /hpf (0-5)
[2019-06-26 12:02] LABS: Fibrinogen 691 mg/dl (203-444)
[2019-06-26 12:03] LABS: Color, Urine Yellow (Yellow); Glucose, Dipstick Normal (Normal); Ketone-Dipstick Negative (Negative); Leukocyte Esterase-Dipstick Negative /ul (Negative); Nitrite-Dipstick Negative (Negative); Occult Blood-Urine Negative /ul (Negative); Protein-Dipstick Negative (Negative); Urine Bilirubin Dipstick Negative (Negative); Urine Clarity Sl. Cloudy (Clear); Urine Urobilinogen Normal (Normal); Urine pH 6.5 (5.0 - 8.0)
[2019-06-26 12:11] LABS: Squamous Epithelial Cells - UA 0-5 SEEN /hpf (5-10)
[2019-06-26 12:20] LABS: ALB/GLOB Ratio 0.6 RATIO (0.9-2.4); AST(SGOT) 19 U/L (15-37); Alanine Aminotransfer ALT/SGPT 25 U/L (13-56); Albumin, Serum 2.5 g/dL (3.2-5.0); Alkaline Phosphatase 119 U/L (45-117); Anion Gap 11 (5-15); BUN 7 mg/dL (7-18); Calcium,Total 8.3 mg/dL (8.5-10.1); Chloride 110 mmol/L (98-107); EST Glomerular Filtration Rate 157 mL/min (>60); Est Glom Filt Rate - Afr Amer 190 mL/min (>60); Estimated Creatinine Clearance 164.35 ml/min; Globulin 4.1 g/dL (2.2-4.2); Glucose 61 mg/dL (74-106); Potassium 3.6 mmol/L (3.5-5.1); Protein, Total 6.6 g/dL (6.4-8.2); Sodium Level 142 mmol/L (136-145)
--- NOTE | 2019-06-27 05:15 | OB.TRI.PN ---
Progress Notes Date of Service: 06/26/19 Progress Note: co abdominal pain and contractions, palpitations FHT: 140 Moderate variability reactive no decelerations category I tracing [place]: no regular Contractions Assessment and plan 29-year-old with abdominal pain false labor no regular contractions patient declines pain medication for discomfort. All labs within normal limits and reassuring heart tones follow-up as scheduled Laboratory Studies: Laboratory Tests 06/26/19 06/26/19 06/26/19 Range/Units 11:45 11:40 11:40 WBC (4.4-11.0) K/mm3 RBC (4.2-5.4) M/mm3 Hgb (12.0-15.0) g/dL Hct (37-47) % MCV (81-99) fL MCH (27.0-32.0) pg MCHC (32-36) g/dL RDW Std Deviation (35.1-43.9) fl RDW Coeff of Paty (11.6-14.6) % Plt Count (150-450) K/mm3 MPV (6.2-12.0) fl Immature Gran % (Auto) (0.0-0.9) % Neut % (Auto) (47-70) % Lymph % (Auto) (19-41) % [place] % (Auto) (0-10) % Eos % (Auto) (0-5) % Baso % (Auto) (0-1) % Absolute Neuts (auto) (2.0-7.7) X10^3/uL Absolute Lymphs (auto) (0.83-4.51) X10^3/uL Nucleated RBC % (0-5) % Fibrinogen 691 H (203-444) mg/dl Sodium 142 (136-145) mmol/L Potassium 3.6 (3.5-5.1) mmol/L Chloride 110 H (98-107) mmol/L Carbon Dioxide 21.0 (21.0-32.0) mmol/L Anion Gap 11 (5-15) BUN 7 (7-18) mg/dL Creatinine 0.50 L (0.55-1.02) mg/dL Estim Creat Clear Calc 164.35 ml/min Est GFR (MDRD) Af Amer 190 (>60) mL/min Est GFR (MDRD) Non-Af 157 (>60) mL/min BUN/Creatinine Ratio 14.0 (10-20) RATIO Glucose 61 L (74-106) mg/dL Calcium 8.3 L (8.5-10.1) mg/dL Total Bilirubin 0.80 (0.20-1.00) mg/dL AST 19 (15-37) U/L ALT 25 (13-56) U/L Alkaline Phosphatase 119 H (45-117) U/L Total Protein 6.6 (6.4-8.2) g/dL Albumin 2.5 L (3.2-5.0) g/dL Globulin 4.1 (2.2-4.2) g/dL Albumin/Globulin Ratio 0.6 L (0.9-2.4) RATIO Urine Color Yellow (Yellow) Urine Clarity Sl. Cloudy (Clear) Urine pH 6.5 (5.0 - 8.0) Ur Specific [place] 1.010 (1.002-1.030) Urine Protein Negative (Negative) mg/dl Urine Glucose (UA) Normal (Normal) mg/dl Urine Ketones Negative (Negative) mg/dl Urine Occult Blood Negative (Negative) /ul Urine Nitrite Negative (Negative) Urine Bilirubin Negative (Negative) mg/dL Urine Urobilinogen Normal (Normal) mg/dl Ur Leukocyte Esterase Negative (Negative) /ul Urine RBC 0 SEEN (0-5) /hpf Urine WBC 0 SEEN (0-5) /hpf Ur Squamous Epith Cells 0-5 SEEN (5-10) /hpf Urine Bacteria 0 SEEN (None Seen) /hpf Urine Mucus 0 SEEN (<or=2+) /hpf 06/26/19 Range/Units 11:40 WBC 12.3 H (4.4-11.0) K/mm3 RBC 3.77 L (4.2-5.4) M/mm3 Hgb 12.6 (12.0-15.0) g/dL Hct 35.6 L (37-47) % MCV 94.4 (81-99) fL MCH 33.4 H (27.0-32.0) pg MCHC 35.4 (32-36) g/dL RDW Std Deviation 48.3 H (35.1-43.9) fl RDW Coeff of Payt 14.2 (11.6-14.6) % Plt Count 289 (150-450) K/mm3 MPV 9.1 (6.2-12.0) fl Immature Gran % (Auto) 0.700 (0.0-0.9) % Neut % (Auto) 73.5 H (47-70) % Lymph % (Auto) 17.6 L (19-41) % [place] % (Auto) 7.3 (0-10) % Eos % (Auto) 0.7 (0-5) % Baso % (Auto) 0.2 (0-1) % Absolute Neuts (auto) 9.0 H (2.0-7.7) X10^3/uL Absolute Lymphs (auto) 2.16 (0.83-4.51) X10^3/uL Nucleated RBC % 0 (0-5) % Fibrinogen (203-444) mg/dl Sodium (136-145) mmol/L Potassium (3.5-5.1) mmol/L Chloride (98-107) mmol/L Carbon Dioxide (21.0-32.0) mmol/L Anion Gap (5-15) BUN (7-18) mg/dL Creatinine (0.55-1.02) mg/dL Estim Creat Clear Calc ml/min Est GFR (MDRD) Af Amer (>60) mL/min Est GFR (MDRD) Non-Af (>60) mL/min BUN/Creatinine Ratio (10-20) RATIO Glucose (74-106) mg/dL Calcium (8.5-10.1) mg/dL Total Bilirubin (0.20-1.00) mg/dL AST (15-37) U/L ALT (13-56) U/L Alkaline Phosphatase (45-117) U/L Total Protein (6.4-8.2) g/dL Albumin (3.2-5.0) g/dL Globulin (2.2-4.2) g/dL Albumin/Globulin Ratio (0.9-2.4) RATIO Urine Color (Yellow) Urine Clarity (Clear) Urine pH (5.0 - 8.0) Ur Specific [place] (1.002-1.030) Urine Protein (Negative) mg/dl Urine Glucose (UA) (Normal) mg/dl Urine Ketones (Negative) mg/dl Urine Occult Blood (Negative) /ul Urine Nitrite (Negative) Urine Bilirubin (Negative) mg/dL Urine Urobilinogen (Normal) mg/dl Ur Leukocyte Esterase (Negative) /ul Urine RBC (0-5) /hpf Urine WBC (0-5) /hpf Ur Squamous Epith Cells (5-10) /hpf Urine Bacteria (None Seen) /hpf Urine Mucus (<or=2+) /hpf - Problem List (1) Abdominal pain affecting Status: Acute (2) Palpitations Status: Acute Comment: seen at [facility] ER, persistent symptoms recommend cardiology evaluation Multi Select Codes - Urinary/Genital Urinary/Genital CPT Codes: 06525-37 non-stress test Interp
== END 2019-06-26 13:30 | disposition home or self-care (01) ==
PROVIDERS: Referring Provider Obstetrics & Gynecology; Visit Provider Obstetrics & Gynecology
DX: O47.9 False labor, unspecified (principal); O26.899 Other specified pregnancy related conditions, unspecified trimester; R00.2 Palpitations; Z3A.00 Weeks of gestation of pregnancy not specified
CPT/HCPCS: 36415; 59025; 59050; 80053; 81001; 85025; 85384; 87086; 87088; 99218; G0378

== ENCOUNTER 2019-06-30 16:06 | Outpatient (CLI) | payer MEDICAID, SELFPAY ==
[2019-06-30 15:33] VITALS: BMI 45.1
--- NOTE | 2019-07-02 01:09 | OB.TRI.PN_ITS ---
Progress Notes Date of Service: 06/30/19 Progress Note: FHT: 150 Moderate variability reactive no decelerations category I tracing [place]: No regular contractions Multi Select Codes - Urinary/Genital Urinary/Genital CPT Codes: 34685-09 non-stress test Interp
--- NOTE | 2019-07-02 01:09 | OB.TRI.PN ---
Progress Notes Date of Service: 06/30/19 Progress Note: FHT: 150 Moderate variability reactive no decelerations category I tracing [place]: No regular contractions Multi Select Codes - Urinary/Genital Urinary/Genital CPT Codes: 13661-20 non-stress test Interp
== END 2019-06-30 16:35 | disposition home or self-care (01) ==
LOC: WPOUT 16:07 → OBT 16:09
PROVIDERS: Referring Provider Obstetrics & Gynecology; Visit Provider Obstetrics & Gynecology
DX: Z34.93 Encounter for supervision of normal pregnancy, unspecified, third trimester (principal); Z3A.36 36 weeks gestation of pregnancy
CPT/HCPCS: 59025; 87081

== ENCOUNTER 2019-07-02 17:21 | Emergency (ER) | payer MEDICAID, SELFPAY ==
[2019-07-02 17:22] VITALS: BP 156/98; PULSE 124; RESP 18; TEMP 36.1; O2SAT 99; BMI 46.5
--- NOTE | 2019-07-02 17:41 | EKG12_ITS ---
Test Reason : CP Blood Pressure : / mmHG Vent. Rate : 106 BPM Atrial Rate : 106 BPM P-R Int : 128 ms QRS Dur : 072 ms QT Int : 328 ms P-R-T Axes : 051 022 024 degrees QTc Int : 435 ms Sinus tachycardia Otherwise normal ECG Confirmed by MORGAN WEISS, DARI ([id number]), editor school photograph EVONNE JOHNSON ([id number]) on 07/07/2019 8:03:22 AM Referred By: RU/ Confirmed By:DARI MORA MD
[2019-07-02 17:50] LABS: Absolute Neutrophil Count 8.7 X10^3/uL (2.0-7.7); Basophil# 0.03 X10^3/uL; Basophil% 0.2 % (0-1); Eosinophil# 0.08 X10^3/uL; Eosinophils% 0.7 % (0-5); Hematocrit 35.5 % (37-47); Hemoglobin 12.6 g/dL (12.0-15.0); Lymphocyte % 19.1 % (19-41); Mean Corp Hgb Conc 35.5 g/dL (32-36); Mean Corpuscular Hgb 33.2 pg (27.0-32.0); Mean Corpuscular Volume 93.7 fL (81-99); Mean Platelet Vol. 9.4 fl (6.2-12.0); Monocyte# 0.93 X10^3/uL; Monocyte% 7.7 % (0-10); NRBC Flagged by Analyzer 0 % (0-5); Neutrophil # 8.65 X10^3/uL (2.7-7.7); Neutrophil % 71.9 % (47-70); Platelet Count 280 K/mm3 (150-450); RBC Distribution Width CV 14.3 % (11.6-14.6); RBC Distribution Width SD 48.2 fl (35.1-43.9); Red Blood Count 3.79 M/mm3 (4.2-5.4)
[2019-07-02] MEDS: 0.9% Normal Saline 1,000 ML 150 ML IV (17:55)
[2019-07-02 18:08] LABS: D-Dimer Quantitative (DVT/PE) 0.82 FEU/ug/m (0.27-0.49)
[2019-07-02 18:12] LABS: ALB/GLOB Ratio 0.6 RATIO (0.9-2.4); AST(SGOT) 17 U/L (15-37); Alanine Aminotransfer ALT/SGPT 26 U/L (13-56); Albumin, Serum 2.5 g/dL (3.2-5.0); Alkaline Phosphatase 126 U/L (45-117); Anion Gap 9 (5-15); BUN 8 mg/dL (7-18); BUN/Creat Ratio 12.7 RATIO (10-20); Calcium,Total 9.1 mg/dL (8.5-10.1); Chloride 109 mmol/L (98-107); Creatinine, Serum 0.63 mg/dL (0.55-1.02); EST Glomerular Filtration Rate 121 mL/min (>60); Est Glom Filt Rate - Afr Amer 146 mL/min (>60); Estimated Creatinine Clearance 130.44 ml/min; Globulin 4.2 g/dL (2.2-4.2); Glucose 122 mg/dL (74-106); Potassium 3.2 mmol/L (3.5-5.1); Protein, Total 6.7 g/dL (6.4-8.2); Sodium Level 138 mmol/L (136-145)
--- NOTE | 2019-07-02 18:21 | CT_ITS ---
STUDY: CTA CHEST REASON FOR EXAM: Female, 29 years old. CHEST PAIN/36 WEEKS . Pt shielded. Had recent CT chest 06/15/19 RADIATION DOSAGE (If Supplied By Facility): CTDIvol = ( 12.67 ) mGy, DLP = ( 485.53 ) mGycm TECHNIQUE: The examination was performed with the intravenous administration of Isovue 370 100ml. Post-processing of the angiographic images was performed, with multiplanar reformation and 3D reconstruction. Individualized dose optimization techniques were used for this CT. COMPARISON: CTA chest June 15, 2019 FINDINGS: Pulmonary arterial enhancement is limited, with restricted assessment for pulmonary embolism. No definite large or central filling defects are observed. There is no demonstrated aortic dissection. Normal heart and pericardium. Normal mediastinum. Normal hilar regions. Normal visualized trachea and bronchi. The lungs are well expanded. Normal pulmonary parenchyma. Normal pleura. Normal chest wall structures. Normal osseous structures. Normal visualized upper abdomen. CT/CTA Chest W/WO Contrast IMPRESSION: Extremely limited evaluation due to poor pulmonary arterial opacification. No definite large or central pulmonary bullae. If further clinical concern, repeat examination or VQ scan is recommended. Clear lungs. Electronically Signed: Duane Corey, at 19:14 EST Tel , Service support ,
[2019-07-02 18:59] VITALS: BP 110/84; PULSE 109; RESP 20; O2SAT 96
[2019-07-02 19:00] LABS: Mucous, Urine 0 SEEN /hpf (<or=2+); Red Blood Cells-Urine 0 SEEN /hpf (0-5); White Blood Cells 0 SEEN /hpf (0-5)
[2019-07-02 19:02] LABS: Color, Urine Yellow (Yellow); Glucose, Dipstick Normal (Normal); Ketone-Dipstick Negative (Negative); Leukocyte Esterase-Dipstick Negative /ul (Negative); Nitrite-Dipstick Negative (Negative); Occult Blood-Urine Negative /ul (Negative); Protein-Dipstick Negative (Negative); Specific Gravity, Urine 1.015 (1.002-1.030); Urine Bilirubin Dipstick Negative (Negative); Urine Clarity Clear (Clear); Urine Urobilinogen Normal (Normal); Urine pH 6.5 (5.0 - 8.0)
[2019-07-02 19:09] LABS: Bacteria 1+ /hpf (None Seen); Squamous Epithelial Cells - UA 0-5 SEEN /hpf (5-10)
[2019-07-02 19:11] VITALS: PULSE 101; O2SAT 96
--- NOTE | 2019-07-02 19:49 | ED.DCSUM_ITS ---
- ER Visit Summary Date of Service: 07/02/19 Chief Complaint: [Chest pain] History of Present Illness: The patient is a 29 F [presents the emergency department with complaint of chest discomfort that started today. She is currently not experiencing any pain. Patient states that she is having Alex Jenkins type contractions about 1 an hour and when she has a contraction pain radiates up into her chest. Patient was told by her [facility]WER [facility] to be evaluated in the ER. Patient does have a history of diabetes and history of GERD. Patient is G7, P4.] Patient is 36 weeks . She denies any vaginal bleeding. Patient denies recent travel or surgery. No history of PE or DVT. Physical Examination: [HEENT-PERRLA, EOMI. Cranial nerves II through XII grossly intact. TMs clear. Mucous membranes moist. No adenopathy. Cardiovascular-regular rate and rhythm without murmur or ectopy Lungs-clear to auscultation, chest wall stable without crepitus or subcu emphysema Abdomen-normoactive bowel sounds, soft, nontender, no rebound or rigidity, no peritoneal signs. Extremities-intact ?4, normal range of motion, normal pulses, atraumatic] Test Results: [EKG obtained on arrival showed a sinus rhythm with a ventricular rate of 106 bpm with no acute ST segment changes. CBC with it showing a 12.0, hemoglobin 12.6, hematocrit 35, placed to 80. Chemistry showed a sodium 138, potassium 3.2, chloride 109, CO2 20, BUN 8, creatinine 0.63, glucose 122. Alk phos was 126. Urinalysis was normal. Troponin is less than 0.15. D-dimer was elevated 0.82. CTA of the chest obtained showed no large central PE although study was not ideal in the timing of contrast.] Emergency Department Course and Treatment: [I discussed case with patient's [facility]. My suspicion for PE is extremely low given the description of the pain that is only related to her contractions in her abdomen. Patient is currently resting comfortably.] Treatment Plan: [Follow-up with primary care physician or [facility] within next 3 to 5 days. Patient advised to return if worsening pain, increased frequency of contractions, or conditions worsen anyway.] Disposition: [Discharged home in stable condition] Impression: [Chest pain-etiology uncertain] This note was generated with Dragon dictation software. It may contain incorrect words, spelling, and punctuation that were not noted in review of the chart prior to signing ED Disposition - Plan for ED Patient: Referrals: Care Physician,No Primary [Primary Care Provider] -
--- NOTE | 2019-07-02 19:56 | ED.DEP ---
ED Disposition - Plan for ED Patient: Instructions: CHEST PAIN, Uncertain Cause Referrals: Care Physician,No Primary [Primary Care Provider] - Zuleyma Collado MD [STAFF PHYSICIAN] - 1-2 Days if not improving
[2019-07-02 20:08] VITALS: BP 128/89; PULSE 102; RESP 14; O2SAT 96
== END 2019-07-02 20:09 | disposition home or self-care (01) ==
LOC: ED 17:49
PROVIDERS: Emergency Provider Emergency Medicine
DX: O26.893 Other specified pregnancy related conditions, third trimester (principal); R07.89 Other chest pain; R79.89 Other specified abnormal findings of blood chemistry; O24.313 Unspecified pre-existing diabetes mellitus in pregnancy, third trimester; E11.9 Type 2 diabetes mellitus without complications; O99.613 Diseases of the digestive system complicating pregnancy, third trimester; K21.9 Gastro-esophageal reflux disease without esophagitis; Z3A.36 36 weeks gestation of pregnancy; Z79.4 Long term (current) use of insulin; Z79.84 Long term (current) use of oral hypoglycemic drugs
CPT/HCPCS: 71275; 80053; 81001; 84484; 85025; 85379; 93005; 96360; 96361; 99284; J7030; Q9967; A4216

== ENCOUNTER 2019-07-12 12:00 | Outpatient (CLI) | payer MEDICAID, SELFPAY ==
[2019-07-12 12:18] VITALS: BMI 45.5
[2019-07-12] MEDS: 0.9% Normal Saline 1,000 ML 500 ML IV (12:50)
[2019-07-12 12:59] LABS: Hemoglobin 12.3 g/dL (12.0-15.0); Mean Corp Hgb Conc 35.1 g/dL (32-36); Mean Corpuscular Hgb 32.9 pg (27.0-32.0); Mean Corpuscular Volume 93.6 fL (81-99); Mean Platelet Vol. 9.5 fl (6.2-12.0); Platelet Count 266 K/mm3 (150-450); RBC Distribution Width CV 14.5 % (11.6-14.6); RBC Distribution Width SD 48.9 fl (35.1-43.9); Red Blood Count 3.74 M/mm3 (4.2-5.4); White Blood Count 13.3 K/mm3 (4.4-11.0)
[2019-07-12] MEDS: fentaNYL 100 MCG/2 ML Ampul IV (13:09)
[2019-07-12 13:12] LABS: Fibrinogen 684 mg/dl (203-444)
[2019-07-12] MEDS: cycloBENZAPRine HCl 10 MG Tablet PO (15:42)
--- NOTE | 2019-07-14 03:24 | OB.TRI.PN ---
Progress Notes Date of Service: 07/12/19 Progress Note: Patient presents for triage evaluation secondary to right side pain and abdominal pain patient was evaluated and seen by physician and tender in the muscles but not on the uterus or incisional area. All of tenderness is over where the parts are with frequent movements and pain corresponds with movements. FHT: 150-160 Moderate variability reactive no decelerations category I tracing [place]: No regular contractions Assessment and plan: Abdominal pain and false labor reactive NST, reassuring maternal and status patient discharged to home to follow-up scheduled. See problem list details for additional plan information. Laboratory Studies: Laboratory Tests 07/12/19 07/12/19 07/12/19 Range/Units 12:50 12:50 12:50 WBC 13.3 H (4.4-11.0) K/mm3 RBC 3.74 L (4.2-5.4) M/mm3 Hgb 12.3 (12.0-15.0) g/dL Hct 35.0 L (37-47) % MCV 93.6 (81-99) fL MCH 32.9 H (27.0-32.0) pg MCHC 35.1 (32-36) g/dL RDW Std Deviation 48.9 H (35.1-43.9) fl RDW Coeff of Paty 14.5 (11.6-14.6) % Plt Count 266 (150-450) K/mm3 MPV 9.5 (6.2-12.0) fl Fibrinogen 684 H (203-444) mg/dl Blood Type O POSITIVE Antibody Screen NEGATIVE Multi Select Codes - Visit Charges Office Visit/Consults: 36674 OV L2 Est - Urinary/Genital Urinary/Genital CPT Codes: 73045-81 non-stress test Interp
== END 2019-07-12 16:30 | disposition home or self-care (01) ==
LOC: WPOUT 12:09 → WP 07-13 10:44
PROVIDERS: Visit Provider Obstetrics & Gynecology
DX: O47.9 False labor, unspecified (principal); Z3A.00 Weeks of gestation of pregnancy not specified
CPT/HCPCS: 96360; 96361; 36415; 59025; 59050; 85027; 85384; 86850; 86900; 86901; 99218; J7030; G0378

== ENCOUNTER 2019-07-16 14:23 | Inpatient (IN) | payer MEDICAID, SELFPAY ==
[2019-04-28 13:49] VITALS: BMI 44.0
[2019-07-16] VITALS (17 sets, daily range): BP systolic 94–126; BP diastolic 38–84; PULSE 73–100; RESP 16–18; TEMP 36.3–37.6; O2SAT 95–100; BMI 45.5; BMI 46.4
[2019-07-16] MEDS: Lactated Ringers 1,000 ML 999 ML IV (14:40)
[2019-07-16 15:01] LABS: Bedside Glucose 57 mg/dL (70-110)
[2019-07-16 15:15] LABS: Absolute Lymphocyte Count 2.49 X10^3/uL (0.83-4.51); Absolute Neutrophil Count 8.1 X10^3/uL (2.0-7.7); Basophil# 0.02 X10^3/uL; Basophil% 0.2 % (0-1); Eosinophil# 0.08 X10^3/uL; Eosinophils% 0.7 % (0-5); Hematocrit 36.1 % (37-47); Hemoglobin 12.7 g/dL (12.0-15.0); Lymphocyte # 2.49 X10^3/ul (4.0); Lymphocyte % 21.1 % (19-41); Mean Corp Hgb Conc 35.2 g/dL (32-36); Mean Corpuscular Hgb 33.2 pg (27.0-32.0); Mean Corpuscular Volume 94.3 fL (81-99); Mean Platelet Vol. 9.8 fl (6.2-12.0); Monocyte# 0.95 X10^3/uL; Monocyte% 8.1 % (0-10); NRBC Flagged by Analyzer 0 % (0-5); Neutrophil # 8.14 X10^3/uL (2.7-7.7); Neutrophil % 69.1 % (47-70); Platelet Count 301 K/mm3 (150-450); RBC Distribution Width CV 14.5 % (11.6-14.6); RBC Distribution Width SD 48.9 fl (35.1-43.9); Red Blood Count 3.83 M/mm3 (4.2-5.4); White Blood Count 11.8 K/mm3 (4.4-11.0)
[2019-07-16 15:19] LABS: Prothrombin Time (Protime)PT. 13.3 SECONDS (11.7-14.9)
[2019-07-16 15:20] LABS: Partial Thromboplast Time 25.8 Seconds (24.1-36.2)
[2019-07-16 15:39] LABS: Protein, Urine (Random) 21.4 mg/dL (<11.9); Protein:Creat Ratio 288 mg/g CRE (0-200)
[2019-07-16 15:41] LABS: Bedside Glucose 48 mg/dL (70-110)
[2019-07-16] MEDS: Dextrose 10%-Water 250 ML 999 ML IV (15:41)
[2019-07-16 15:45] LABS: AST(SGOT) 20 U/L (15-37); Alanine Aminotransfer ALT/SGPT 21 U/L (13-56); Creatinine, Serum 0.63 mg/dL (0.55-1.02); EST Glomerular Filtration Rate 120 mL/min (>60); Est Glom Filt Rate - Afr Amer 145 mL/min (>60); Estimated Creatinine Clearance 130.44 ml/min; Uric Acid 6.6 mg/dL (2.6-6.0)
[2019-07-16] MEDS: Sodium Citrate/Citric Acid 30 ML UDC PO (15:52)
[2019-07-16 16:01] LABS: Bedside Glucose 93 mg/dL (70-110)
--- NOTE | 2019-07-16 16:44 | FALS_PTH ---
PATIENT: SYLVESTER YEN LOC: [facility] U#:[id number] AGE/SX: 29/F ROOM: WP008 RE07/16/[address]: Dr. Zuleyma Collado MD : 1990 BED: 1 DIS: 07/18/2019 SPEC #: [id number] RECD: 07/16/19 18:01 STATUS: YAZAN MATT #: [id number] RICH: 07/16/19 16:[address]: Zuleyma Collado DEPT: SURGICAL PATHOLOGY RECD BY: Jose Maria Cano ENTERED: 07/17/19 11:55 SP TYPE: FALL TUBES OTHR DR: Nia Primary Care Phys Tissues: Fallopian tube Procedures: Surgery Specimen Level II HEADER OPERATION: Tubal ligation PRE-OP DIAGNOSIS: Sterilization TISSUE SUBMITTED: Fallopian tubes MICROSCOPIC DIAGNOSIS Bilateral fallopian tubes, tubal ligation: Completely transected segment of bilateral fallopian tubes, no pathologic diagnosis. RICKI:malika 07/20/19 COMMENT Fimbrial end is noted only in left fallopian tube. Right fallopian tube does not show distinct fimbrial end. MICROSCOPIC DESCRIPTION Slides are reviewed. GROSS DESCRIPTION Received is one container labeled with the patient's name and designated bilateral fallopian tubes, left with suture. The specimen consists of two fallopian tubes with an average length of 4.5 cm and has a maximal diameter of 0.7 cm. The right fallopian tube does not contain a distinct fimbriated end. No mass lesions are identified. [employer] sections are submitted in two cassettes as follows: 1 - right fallopian tube, 2 - left fallopian tube. / AM:malika 07/17/19 TC:4 CPT: 40579 x2
--- NOTE | 2019-07-16 17:16 | HP.PCM_ITS ---
- Problem List (1) tachycardia affecting management of mother Status: Acute (2) Variable heart rate decelerations, antepartum Status: Acute (3) Elevated blood pressure affecting in third trimester, antepartum Status: Acute (4) Palpitations Status: Acute Comment: seen at [facility]'s ER, persistent symptoms recommend cardiology evaluation (5) Status: Acute Qualifiers: Comment: neg carrier, genetic-low risk male and AFP negative; nt normal. Signed Title 03/02:Repeat US 2 wk to complete anatomy (6) Supervision of high risk , antepartum Status: Acute Comment: PRR DELFINA 07/26/2019 boy Deejay Cochran Hunter and Umer. Spouse: Hussein (7) Diabetes mellitus Status: Chronic Qualifiers: Comment: Class C; currently on Metformin and insulin, cocare MFM (8) Obesity Status: Chronic Qualifiers: Comment: encouraged healthy weight gain; 2x weekly testing after 32 weeks delivery at 39 weeks; weekly BPP with MFM weekly NST with BWC (9) H/O section Status: Resolved Comment: x4. Plans LTCS- 07/22 at 0730. History and Physical Date of Admission: 07/16/19 Intake Vital Signs 07/16/19 Height 5 ft 7 in 07/16/19 Weight: 297 lb 8 oz 07/16/19 BMI 46.5 07/16/19 BP 126/80 H Intake Visit Reasons: OB Head Sawyer Automatic Required: No Allergies aspirin Allergy (Verified 07/16/19 13:23) Rash Penicillins Allergy (Verified 07/16/19 13:23) Rash ketorolac [From Toradol] Adverse Reaction (Verified 07/16/19 13:23) Other PAPER TAPE Allergy (Uncoded 07/12/19 12:20) Other Medications ergocalciferol (vitamin D2) 1,250 mcg (50,000 unit) capsule 50,000 unit PO OLSON 06/13/18 [History Confirmed 07/16/19] famotidine 40 mg tablet 40 mg PO DAILY PRN 06/13/18 [History Confirmed 07/16/19] Insulin Lispro 22 units SUBCUT 1700 02/26/19 [History Confirmed 07/16/19] Insulin NPH Human Isophane [Humulin N] 28 units SUBCUT 0700 02/26/19 [History Confirmed 07/16/19] metFORMIN HCl [Glucophage] 1,000 mg PO BIDCM 03/28/19 [History Confirmed 07/16/19] Insulin Lispro [Humalog] 16 unit SQ 0800 03/31/19 [History Confirmed 07/16/19] Insulin NPH Human [Humulin N Pen] 26 units SUBCUT QHS 03/31/19 [History Confirmed 07/16/19] Insulin Lispro [Humalog] 8 unit SUBCUT LUNCH 04/06/19 [History Confirmed 07/16/19] Ondansetron [Zofran Odt] 4 mg PO Q6H PRN PRN #30 tab 04/12/19 [Rx Confirmed 07/16/19] proMETHazine tablet [Phenergan tablet] 12.5 mg PO Q6H PRN PRN 04/22/19 [History Confirmed 07/16/19] Last Menstral Period: 06/02/18 Zika: Zika virus screening: Negative : No PFSH PFSH Medical History Palpitations (Acute) (Acute) Supervision of high risk , antepartum (Acute) Obesity (Chronic) Diabetes mellitus (Chronic) Vitamin D deficiency (Acute) Right hip pain (Chronic) Surgical History H/O section (Resolved) History of right hip replacement (Chronic ~07/2018) History of renal stent (Resolved) S/P cholecystectomy (Resolved) S/P dilation and curettage (Resolved ~09/13/17) s/p right hip surgery (Resolved) Family History Mother Diabetes CVA (cerebral vascular accident) Father Diabetes Grandmother Diabetes Grandfather Diabetes Social History (Updated 07/16/19 @ 14:14 by Zuleyma Collado MD) Smoking Status: Never smoker alcohol intake: never substance use type: does not use caffeine: Yes what type of physical activity do you participate in: walking, bicycling frequency: 1-2 times per week seatbelt use: always do you feel safe at home: Yes additional social history: - Hussein- [employer] Patient is stay at home mom Pregancy History 7 Elective abortions Hx Para 4 Spontaneous abortions 2 Hx # Term Pregnancies Ectopic pregnancies Hx # Pregnancies Multiple births # of living children 4 Past Pregnancies Del. Date Name GA/Weeks Outcome Route Bth Weight Gen Labor Lgth Anesthesia Del Locatn Provider FOB 09/26/06 Miracle live - full term 6.[address] [facility] [address] [facility] 08/14/12 Deejay live - full term 10.8 M nayely [facility] [place] 01/15/14 Jim 38 live - full term 11.[address] [facility] 01/19/15 Umer 38 live - full term 8-9 Male [facility] Delivery Date: 09/26/06 On 12/16/18 @ 09:09 Miriam Marie Patient was not aware she was ; pancreatitis- transferred to [facility]; placenta abruption Delivery Date: 08/14/12 On 12/16/18 @ 09:10 Miriam Marie tachycardia Delivery Date: 01/15/14 No notes to display Delivery Date: 01/19/15 On 12/16/18 @ 09:11 Miriam Marie No complications HPI OB: Details: SYLVESTER YEN is a 29 year old who presents for routine OB visit. On the NST monitor she was found to have nonreactive tachycardia in the 170s to 180s with recurrent variables. She was seen on labor and delivery and baseline was done in the 150s but nonreactive with moderate variability. Blood pressures are elevated in the 150s over 90s initially. She denies any headache or blurry vision. OB Visit DELFINA Calculator Estimated Delivery Date Method Current WG Current Estimate 07/26/19 LMP (Certain) 38w 4d Expected Delivery Route/Plan RLTCS and BS- signed title 19 Labor Preferences- labor support person: Hussein discussed possible routes of delivery and associated risk Specific Issue/Plans flu vaccine: given tdap vaccine: given rhogam: na LARC form signed: declined movement and labor precautions reviewed. Problem list reviewed and updated with the most current plan of care details and appropriate orders placed. Relevant counseling for the gestational age provided. Continue routine care and follow up unless otherwise noted in visit notes/problem list details Initial Weight: 272 lb Date EGA Weight BP Urine Prot Glucose FHR FuHt Pres Dilation Effaced St Visit Note 01/14/19 12w 3d 276 lb (+4 lb) 122/66 Negative Negative 150 no vb cramping, lost mother in law this week. 02/10/19 16w 2d 278 lb (+6 lb) 130/82 150 no vb cramping, co persistent JENNINGS 03/09/19 20w 1d 286 lb 2 oz (+14 lb 2 oz) 118/66 Negative 500 g/dL 133 Work in for dysuria, urinary frequency. Not feeling FM. Easily found FHT 133-152. 04/06/19 24w 1d 284 lb 8 oz (+12 lb 8 oz) 126/76 Negative Negative 145 still having significant pain with kidney stones. seeing urogyn this afternoon. good fm. 04/08/19 24w 3d 285 lb (+13 lb) 116/76 151 Work in to check FHT. Had surgical attempt to remove kidney stone- unsuccessful. Stent placed. Still having pain, hematuria. 04/28/19 27w 2d 282 lb (+10 lb) 132/78 Negative Negative 150 doing better pain stopped. no vb lof good fm 05/15/19 29w 5d 284 lb 6 oz (+12 lb 6 oz) 127/78 Negative Negative 140 no vb lof good fm no regular ctx 06/02/19 32w 2d 287 lb 8 oz (+15 lb 8 oz) 127/86 Negative Negative 145 SM- no vb lof good fm occasional contraction co upper abdominal pain. mild ttp. intermittent headaches. seen in triage and nl labs, resolved. weekly nsts after this week. had NST saturday. 06/05/19 32w 5d 288 lb (+16 lb) 117/77 Negative Negative 105 MH: here for NST only and had FHT decel to 95-105 X 1 minute and sent to 06/15/19 34w 1d 236 lb (-36 lb) 286 lb (+14 lb) 132/84 Negative Negative 140 SM- was seen in ER last week for chest pain and evaluated, normal workup per patient- will obtain records. patient still having intermittent chest discomfort. recommend referral to cardiology for evaluation. SM- was seen in ER last week for chest pain and evaluated, normal workup per patient- will obtain records. patient still having intermittent chest discomfort. recommend referral to cardiology for evaluation. UPDATE- patient scheduled with cardiology tomorrow, informed to call PCP or go to ER in the mean time if symptoms worsen 06/30/19 36w 2d 294 lb (+22 lb) 136/90 Negative Negative 140 SM- has holter monitor, s/p cardio consult 07/16/19 38w 4d 297 lb 8 oz (+25 lb 8 oz) 126/80 Negative 1000 g/dL 170 SM- tachycardia persistent 170-180 moderate variability nonreactive, intermittent variable decels. recommend proceeding with repeat and BTL. Notes Visit Date: 07/16/19 ??No visit notes to display Visit Date: 06/30/19 ??No visit notes to display Visit Date: 06/15/19 ??No visit notes to display Visit Date: 06/05/19 ??No visit notes to display Visit Date: 06/02/19 ??No visit notes to display Visit Date: 05/15/19 ??no vb lof good fm no regular ctx ??Zuleyma Collado MD on 05/15/19 Visit Date: 04/28/19 ??doing better pain stopped. no vb lof good fm ??Zuleyma Collado MD on 04/28/19 Visit Date: 04/08/19 ??Work in to check FHT. Had surgical attempt to remove kidney stone- unsuccessful. Stent placed. Still having pain, hematuria. ??GIGI SamsC on 04/08/19 Visit Date: 04/06/19 ??still having significant pain with kidney stones. seeing urogyn this afternoon. good fm. ??Zuleyma Collado MD on 04/06/19 Visit Date: 03/09/19 ??Work in for dysuria, urinary frequency. Not feeling FM. Easily found FHT 133-152. ??GIGI SamsC on 03/09/19 Visit Date: 02/10/19 ??no vb cramping, co persistent JENNINGS ??Zuleyma Collado MD on 02/10/19 Visit Date: 01/14/19 ??no vb cramping, lost mother in law this week. ??Zuleyma Collado MD on 01/14/19 ACOG First Trimester First Trimester: Second Trimester Second Trimester: Signs and Symptoms of Labor, Selecting a care provider, Reproductive Life Planning, Care Planning, Tobacco Cessation, Depression/Anxiety and Intimate Partner Violence Third Trimester Third Trimester: Pain Management Plans, Labor support person(s), Immediate P ostpartum Larc, Movement Monitoring and Infant Feeding Yes ; discussed Trial of Labor after Counseling or discussed Circumcision preference Diagnostics Diagnostics Diagnostics Blood Type O POSITIVE 07/12/19 Antibody Screen NEGATIVE 07/12/19 Hgb 12.3 g/dL (12.0-15.0) 07/12/19 Hct 35.0 % (37-47) L 07/12/19 Details: HIV: Urine Culture: Sequential Screen: NIPT Screen: ROS Const Reports system reviewed and no additional complaints, except as docu Card Reports system reviewed and no additional complaints, except as docu Resp Reports system reviewed and no additional complaints, except as docu GI Reports system reviewed and no additional complaints, except as docu, Reports nausea Reports system reviewed and no additional complaints, except as docu Musc Reports system reviewed and no additional complaints, except as docu Exam Const General: cooperative, healthy appearing, comfortable, anxious HENAL Head: normal to inspection Nose: external nose normal Face and sinus: normal facial exam Neck Neck: normal visual inspection, full ROM, no lymphadenopathy Thyroid: thyroid normal Chest Chest palpation & inspection: normal inspection of the chest Resp Effort & Inspection: normal respiratory effort GI Inspection: normal to inspection Palpation: soft, other (gravid uterus) Other: infant vertex and appropriate size for gestational age Other: Cervical Exam: Extrem General: pedal edema Results POC Urinalysis 2 Dip (Clinic) Office Urine Glucose 1000 g/dL Last Edit by Myla Prather on 07/16/19 13:25 Office Urine Protein Negative Last Edit by Myla Prather on 07/16/19 13:25 Assessment & Plan Problems 1. Palpitations R00.2 seen at [facility]'s ER, persistent symptoms recommend cardiology evaluation 2. H/O section Z98.891 x4. Plans LTCS- 07/22 at 0730. 3. 38 weeks gestation of Z3A.38 neg carrier, genetic-low risk male and AFP negative; nt normal. Signed Title 03/02:Repeat US 2 wk to complete anatomy 4. Supervision of high risk , antepartum O09.90 PRR DELFINA 07/26/2019 Deejay So Hunter and John. Spouse: Hussein 5. Class 3 severe obesity due to excess calories with serious comorbidity and body mass index (BMI) of 40.0 to 44.9 in adult E66.9 encouraged healthy weight gain; 2x weekly testing after 32 weeks delivery at 39 weeks; weekly BPP with MFM weekly NST with BWC 6. Type 2 diabetes mellitus without complication, unspecified whether exterminator helper termite insulin use E11.9 Class C; currently on Metformin and insulin, cocare MFM Her maternal- medicine of any abnormalities and testing recommend immediate delivery. plan repeat low transverse and bilateral salpingectomy. Orders Orders: OB NST Today E11.9 POC Urinalysis 2 Dip (Clinic) Today Coding Level of Care Code OB Routine Diagnoses Palpitations R00.2 H/O section Z98.891 38 weeks gestation of Z3A.38 ??Weeks of gestation: 38 weeks Supervision of high risk , antepartum O09.90 Class 3 severe obesity due to excess calories with serious comorbidity and body mass index (BMI) of 40.0 to 44.9 in adult E66.9 Type 2 diabetes mellitus without complication, unspecified whether shelter insulin use E11.9
--- NOTE | 2019-07-16 17:18 | PCM.OPRPT ---
Problem List (1) tachycardia affecting management of mother Status: Acute (2) Variable heart rate decelerations, antepartum Status: Acute (3) Elevated blood pressure affecting in third trimester, antepartum Status: Acute (4) Palpitations Status: Acute Comment: seen at [facility]'s ER, persistent symptoms recommend cardiology evaluation (5) Status: Acute Qualifiers: Comment: neg carrier, genetic-low risk male and AFP negative; nt normal. Signed Title 03/02:Repeat US 2 wk to complete anatomy (6) Supervision of high risk , antepartum Status: Acute Comment: PRR DELFINA 07/26/2019 boy Deejay Cochran Hunter and Umer. Spouse: Hussein (7) Diabetes mellitus Status: Chronic Qualifiers: Comment: Class C; currently on Metformin and insulin, cocare MFM (8) Obesity Status: Chronic Qualifiers: Comment: encouraged healthy weight gain; 2x weekly testing after 32 weeks delivery at 39 weeks; weekly BPP with MFM weekly NST with BWC (9) H/O section Status: Resolved Comment: x4. Plans LTCS- 07/22 at 0730. Delivery Classification: ISMAEL Final DELFINA: 07/26/19 Gestational age: 38 Weeks and 4 Days manager validation: Trevor Jensen Type of Anesthesia:: Spinal Special Medications: none Implants Used: none Date of Procedure: 07/16/19 Pre-Operative Diagnosis: preivous cs x 4, tachycardia, elevated blood pressures, class C diabetes, desired sterilization Post-Operative Diagnosis: same Indications for : Repeat Elective , Desires elective sterilization - bilateral partial salpingectomy Description of Procedure: Spinal anesthesia was placed without difficulty. Luo catheter was placed. The patient was placed in the dorsal supine position with leftward tilt. Patient was prepped and draped in the normal sterile fashion. Pfannenstiel skin incision was made with the scalpel and carried through to the underlying layer of fascia with the scalpel. Fascia was nicked in the midline and the incision extended laterally. The rectus bellies were dissected off superiorly and inferiorly with out complication both sharply and bluntly. The peritoneum was entered digitally. The incision was stretched and a low transverse uterine incision was made with the scalpel. The infant's head was delivered atraumatically followed by the anterior and posterior shoulders without complication the rest of the delivered. The cord was clamped and cut and the was handed off to awaiting nurse. The placenta was delivered spontaneously immediately following and was noted to be intact and have a three-vessel cord. The uterus was exteriorized cleared of all clots and debris, and the incision was closed in a single layer closure using #1 Monocryl. The ovaries and fallopian tubes were noted to be within normal limits. Patient had desired sterilization and had been consented prior to permanency and therefore bilateral fallopian tubes were elevated and transected across using a LigaSure device starting proximally to distally without complication the entire fallopian tube was removed. The uterus was returned to the maternal abdomen and gutters were cleared of all clots and debris. The peritoneum was closed with 3-0 Monocryl in a running fashion. Gloves were changed prior to fascial closure. Fascia was closed with 0 PDS in a running fashion. Subcutaneous tissue was copiously irrigated and the skin was closed with 3-0 Monocryl in a subcuticular fashion. Mepilex dressing was applied without complication. Patient was taken to recovery in stable condition. Amniotic Membrane Rupture Type: Artificial Amniotic Fluid Description: Clear Placenta Disposition: [facility] Drain: Luo to straight drain Cord Entanglement: None Cord Vessel Description: 3 Vessels Esitmated Blood Loss (ml): 800 Infant Gender: Male Delayed cord clamping: Yes Antibiotic Given: Ancef 3 grams IV x1 Pt instructed on risks of surgery: Bleeding, Anesthesia Risks, Infection, Permanency, Injury to surrounding structure(s) including bowel and bladder Complications: None - Admit VTE Documentation VTE Present on Admission: No VTE Mechan Device Prophylaxis: SCD's Multi Select Codes - Urinary/Genital Urinary/Genital CPT Codes: 29103 C/S+TL, 96439 delivery+ Care([facility])
[2019-07-16] MEDS: Ketorolac 30 MG/ML Syringe IV (17:30)
[2019-07-16] MEDS: Oxytocin 30 units/NS 500 ml 30 UNITS/500 ML IV.SOLN 167 UNITS IV (17:30)
[2019-07-16] MEDS: Lactated Ringers 1,000 ML 150 ML IV (17:30)
[2019-07-16 17:57] LABS: Pathology Specimen OB SEE PATHOLOGY REPORT
--- NOTE | 2019-07-16 18:00 | NURSING ---
pt asymptomatic. hob lowered. iv bolus initiates
--- NOTE | 2019-07-16 18:55 | NURSING ---
pt remains asymptomatic. BGT now 63. Pt given 4 oz juice and dinner tray from frie..
[2019-07-16 18:56] LABS: Bedside Glucose 63 mg/dL (70-110)
[2019-07-16 18:56] LABS: Bedside Glucose 59 mg/dL (70-110)
[2019-07-16 19:45] LABS: Bedside Glucose 102 mg/dL (70-110)
[2019-07-16] MEDS: DiphenhydrAMINE 25 MG Capsule PO (20:33)
[2019-07-16] MEDS: Lactated Ringers 1,000 ML 100 ML IV (20:33)
[2019-07-16] MEDS: Enoxaparin 40 MG/0.4 ML Syringe SC (22:09)
[2019-07-16 22:21] LABS: Bedside Glucose 90 mg/dL (70-110)
[2019-07-16] MEDS: Insulin NPH Human 100 UNITS/ML PEN 8 UNITS SC (22:37)
[2019-07-17] VITALS (14 sets, daily range): BP systolic 96–132; BP diastolic 49–79; PULSE 77–98; RESP 14–18; TEMP 36.3–36.9; O2SAT 95–100
[2019-07-17] MEDS: Ketorolac 30 MG/ML Syringe IV ×5 (00:47→23:36)
[2019-07-17] MEDS: 0.9% Saline Lock 10 ML Syringe IV ×5 (00:48→23:36)
[2019-07-17 06:35] LABS: Mean Corp Hgb Conc 35.7 g/dL (32-36); Mean Corpuscular Hgb 33.8 pg (27.0-32.0); Mean Corpuscular Volume 94.6 fL (81-99); Mean Platelet Vol. 9.3 fl (6.2-12.0); Platelet Count 207 K/mm3 (150-450); RBC Distribution Width CV 14.6 % (11.6-14.6); RBC Distribution Width SD 49.3 fl (35.1-43.9); Red Blood Count 2.96 M/mm3 (4.2-5.4); White Blood Count 12.7 K/mm3 (4.4-11.0)
[2019-07-17 07:55] LABS: Bedside Glucose 49 mg/dL (70-110)
[2019-07-17] MEDS: metFORMIN HCl 1,000 MG Tablet 1000 MG PO ×2 (08:49→16:38)
[2019-07-17 09:10] LABS: Bedside Glucose 84 mg/dL (70-110)
[2019-07-17] MEDS: Enoxaparin 40 MG/0.4 ML Syringe SC ×2 (10:09→22:16)
[2019-07-17] MEDS: Insulin Lispro 100 UNIT/ML INSULN.PEN SC (12:25)
[2019-07-17 12:45] LABS: Bedside Glucose 90 mg/dL (70-110)
--- NOTE | 2019-07-17 13:03 | PCM.PN.OB ---
Patient Problems: Active and Suspected Problems (Last Reviewed 07/16/19 @ 13:21 by Myla Prather) tachycardia affecting management of mother (Acute) Variable heart rate decelerations, antepartum (Acute) Elevated blood pressure affecting in third trimester, antepartum (Acute) Subjective: doing well no complaints pain controlled no CP SOB N V ambulating well tolerating po lochia moderate, going well - Physical Exam Vitals/I&O's: Vital Signs Temp Pulse Resp BP Pulse Ox 98.5 F 77 16 102/49 L 99 07/17/19 08:00 07/17/19 08:00 07/17/19 10:12 07/17/19 08:00 07/17/19 10:12 Oxygen Delivery Method Room Air Weight: 296 lb 8.348 oz Body Mass Index (BMI) 46.4 Finger Stick Blood Glucose 122 Intake and Output for Last 24 Hours 07/15/19 07/16/19 07/17/19 23:59 23:59 23:59 Intake Total 2540 / 2540 603.33 / 603.33 Output Total 450 / 450 1000 / 1000 Balance 2089 / 2089 -396.67 / -396.67 General: Alert, Oriented x3 Laboratory Results 07/16/19 14:45: U Random Total Protein 21.4 H, Urine Creatinine 74.30, Protein/Creatinin Ratio 288 H 07/16/19 14:52: WBC 11.8 H, RBC 3.83 L, Hgb 12.7, Hct 36.1 L, MCV 94.3, MCH 33.2 H, MCHC 35.2, RDW Std Deviation 48.9 H, RDW Coeff of Paty 14.5, Plt Count 301, MPV 9.8, Immature Gran % (Auto) 0.800, Neut % (Auto) 69.1, Lymph % (Auto) 21.1, Wilson % (Auto) 8.1, Eos % (Auto) 0.7, Baso % (Auto) 0.2, Absolute Neuts (auto) 8.1 H, Absolute Lymphs (auto) 2.49, Nucleated RBC % 0 07/16/19 14:52: PT 13.3, INR 1.0, APTT 25.8 07/16/19 14:52: Creatinine 0.63, Estim Creat Clear Calc 130.44, Est GFR (MDRD) Af Amer 145, Est GFR (MDRD) Non-Af 120, Uric Acid 6.6 H, AST 20, ALT 21 07/16/19 14:52: Blood Type O POSITIVE, Antibody Screen NEGATIVE 07/16/19 14:58: POC Glucose 57 L 07/16/19 15:36: POC Glucose 48 L 07/16/19 15:58: POC Glucose 93 07/16/19 18:11: POC Glucose 59 L 07/16/19 18:47: POC Glucose 63 L 07/16/19 19:22: POC Glucose 102 07/16/19 22:13: POC Glucose 90 07/17/19 06:30: WBC 12.7 H, RBC 2.96 L, Hgb 10.0 L, Hct 28.0 L, MCV 94.6, MCH 33.8 H, MCHC 35.7, RDW Std Deviation 49.3 H, RDW Coeff of Paty 14.6, Plt Count 207, MPV 9.3 07/17/19 07:46: POC Glucose 49 L 07/17/19 08:48: POC Glucose 84 07/17/19 12:23: POC Glucose 90 Current Medications Acetaminophen (Tylenol) 1,000 mg PO Q8H PRN PRN Reason: Pain Score 1-3/10 Bisacodyl (Dulcolax) 10 mg RECTAL UD PRN PRN Reason: If no BM Diphenhydramine HCl (Benadryl) 25 mg PO Q6H PRN PRN PRN Reason: ITCHING Stop: 07/17/19 17:34 Last Admin: 07/16/19 20:33 Dose: 25 mg Documented by: Enoxaparin Sodium (Lovenox) 40 mg SC BID [facility] Last Admin: 07/17/19 10:09 Dose: 40 mg Documented by: Ergocalciferol (Vitamin D) 50,000 unit PO OLSON MICHAEL Famotidine (Pepcid) 40 mg PO DAILY PRN PRN PRN Reason: indigestion Glucagon () 1 mg IM .X1 PRN PRN Reason: Hypoglycemia Hydrocortisone (Hytone) 1 applic TOPICAL TID PRN PRN; Protocol PRN Reason: Discomfort Naloxone HCl 4 mg/ Dextrose 504 mls @ 0 mls/hr IV .Q0M PRN; Protocol PRN Reason: Respiratory depression Naloxone HCl 4 mg/ Dextrose 504 mls @ 0 mls/hr IV .Q0M PRN; Protocol PRN Reason: To maintain Resp. rate >10 Dextrose (Dextrose 10%-Water) 250 mls @ 999 mls/hr IV X1 PRN; Protocol PRN Reason: HYPOGLYCEMIA Insulin Human Lispro (Humalog Kwikpen (Bkc)) 0 unit SC ACHS [facility]; Protocol Ketorolac Tromethamine (Toradol (Bkc)) 30 mg IV Q6 [facility] Stop: 07/18/19 12:01 Last Admin: 07/17/19 12:27 Dose: 30 mg Documented by: Metformin HCl (Glucophage) 1,000 mg PO BIDCM [facility] Last Admin: 07/17/19 08:49 Dose: 1,000 mg Documented by: Methylergonovine Maleate (Methergine) 0.2 mg IM X1 PRN PRN Reason: Uterine Atony Naloxone HCl (Narcan) 0.02 mg IV Q1M PRN PRN Reason: RR <10 and pt unresponsive Naproxen (Naprosyn) 250 - 500 mg PO Q8H PRN PRN PRN Reason: Pain Score 1-3/10 Ondansetron HCl (Zofran) 4 mg IV Q4H PRN PRN PRN Reason: Nausea Oxycodone HCl (Oxyir) 5 - 10 mg PO Q4H PRN PRN PRN Reason: Pain Score 4-10/10 Prochlorperazine Edisylate (Compazine Iv) 10 mg IV Q6H PRN PRN PRN Reason: NAUSEA Senna/Docusate Sodium (Senokot-S, Rowena-Colace) 0 tablet PO DAILY PRN PRN Reason: Constipation Simethicone (Mylicon) 80 mg PO PCHS PRN PRN Reason: Indigestion/stomach pain Sodium Chloride () 5 - 15 ml IV UD PRN PRN Reason: SALINE FLUSH Last Admin: 07/17/19 12:27 Dose: 10 ml Documented by: Medical Necessity - Tobacco Use Smoking Status: Never smoker Assessment/Plan All Active Problems (Last Reviewed 07/16/19 @ 13:21 by Myla Prather) tachycardia affecting management of mother (Acute) Variable heart rate decelerations, antepartum (Acute) Elevated blood pressure affecting in third trimester, antepartum (Acute) Palpitations (Acute) H/O section (Resolved) (Acute) Supervision of high risk , antepartum (Acute) Abdominal pain affecting (Resolved) Chest pain (Resolved) Left ureteral calculus (Resolved) Low lying placenta nos or without hemorrhage, second trimester (Resolved) Missed ab (Resolved) Partial placenta previa (Resolved) with nephrolithiasis (Resolved) Retained products of conception after miscarriage (Resolved) Threatened labor (Resolved) UTI in (Resolved) s/p LTCS PPD # 1 1. routine post care 2. breast feeding- support given 3. rh positive 4. rubella immune 5. hold insulin- metformin only at present follow bps
[2019-07-17] MEDS: oxyCODONE 5 MG Tablet PO ×2 (16:40→20:55)
[2019-07-17 16:45] LABS: Bedside Glucose 108 mg/dL (70-110)
[2019-07-17 22:35] LABS: Bedside Glucose 138 mg/dL (70-110)
[2019-07-18] MEDS: oxyCODONE 5 MG Tablet PO ×2 (01:49→08:23)
[2019-07-18 01:51] VITALS: BP 109/49; PULSE 73; RESP 16; TEMP 37
[2019-07-18] MEDS: Acetaminophen 500 MG Tablet 1000 MG PO (03:08)
[2019-07-18] MEDS: Ketorolac 30 MG/ML Syringe IV ×2 (05:48→12:17)
[2019-07-18] MEDS: 0.9% Saline Lock 10 ML Syringe IV (05:49)
[2019-07-18 07:55] VITALS: BP 125/77; PULSE 97; RESP 16; TEMP 36.6; O2SAT 99
[2019-07-18 08:16] LABS: Bedside Glucose 83 mg/dL (70-110)
[2019-07-18] MEDS: Senna/Docusate Sodium 1 Tablet PO (08:23)
[2019-07-18] MEDS: metFORMIN HCl 1,000 MG Tablet 1000 MG PO (08:23)
--- NOTE | 2019-07-18 10:00 | PN.OBGYN_ITS ---
Patient Problems: Active and Suspected Problems (Last Reviewed 07/16/19 @ 13:21 by Myla Prather) tachycardia affecting management of mother (Acute) Variable heart rate decelerations, antepartum (Acute) Elevated blood pressure affecting in third trimester, antepartum (Acute) Subjective: doing well no complaints pain controlled no CP SOB N V ambulating well tolerating po lochia moderate, going well - Physical Exam Vitals/I&O's: Vital Signs Temp Pulse Resp BP Pulse Ox 97.8 F 97 16 125/77 H 99 07/18/19 07:55 07/18/19 07:55 07/18/19 07:55 07/18/19 07:55 07/18/19 07:55 Oxygen Delivery Method Room Air Weight: 296 lb 8.348 oz Body Mass Index (BMI) 46.4 Finger Stick Blood Glucose 122 Intake and Output for Last 24 Hours 07/16/19 07/17/19 07/18/19 23:59 23:59 23:59 Intake Total 2540 / 2540 603.33 / 603.33 Output Total 450 / 450 1400 / 1400 Balance 2090 / 2090 -796.67 / -796.67 General: Alert, Oriented x3 Laboratory Results 07/17/19 12:23: POC Glucose 90 07/17/19 16:37: POC Glucose 108 07/17/19 22:20: POC Glucose 138 H 07/18/19 08:07: POC Glucose 83 Current Medications Acetaminophen (Tylenol) 1,000 mg PO Q8H PRN PRN Reason: Pain Score 1-3/10 Last Admin: 07/18/19 03:08 Dose: 1,000 mg Documented by: Bisacodyl (Dulcolax) 10 mg RECTAL UD PRN PRN Reason: If no BM Enoxaparin Sodium (Lovenox) 40 mg SC BID MICHAEL Last Admin: 07/17/19 22:16 Dose: 40 mg Documented by: Ergocalciferol (Vitamin D) 50,000 unit PO OLSON MICHAEL Famotidine (Pepcid) 40 mg PO DAILY PRN PRN PRN Reason: indigestion Glucagon () 1 mg IM .X1 PRN PRN Reason: Hypoglycemia Hydrocortisone (Hytone) 1 applic TOPICAL TID PRN PRN; Protocol PRN Reason: Discomfort Naloxone HCl 4 mg/ Dextrose 504 mls @ 0 mls/hr IV .Q0M PRN; Protocol PRN Reason: Respiratory depression Naloxone HCl 4 mg/ Dextrose 504 mls @ 0 mls/hr IV .Q0M PRN; Protocol PRN Reason: To maintain Resp. rate >10 Dextrose (Dextrose 10%-Water) 250 mls @ 999 mls/hr IV X1 PRN; Protocol PRN Reason: HYPOGLYCEMIA Insulin Human Lispro (Humalog Kwikpen (Bk)) 0 unit SC ACHS [facility]; Protocol Last Admin: 07/18/19 08:10 Dose: Not Given Documented by: Ketorolac Tromethamine (Toradol (Bkc)) 30 mg IV Q6 [facility] Stop: 07/18/19 12:01 Last Admin: 07/18/19 05:48 Dose: 30 mg Documented by: Metformin HCl (Glucophage) 1,000 mg PO BIDCM [facility] Last Admin: 07/18/19 08:23 Dose: 1,000 mg Documented by: Methylergonovine Maleate (Methergine) 0.2 mg IM X1 PRN PRN Reason: Uterine Atony Naloxone HCl (Narcan) 0.02 mg IV Q1M PRN PRN Reason: RR <10 and pt unresponsive Naproxen (Naprosyn) 250 - 500 mg PO Q8H PRN PRN PRN Reason: Pain Score 1-3/10 Ondansetron HCl (Zofran) 4 mg IV Q4H PRN PRN PRN Reason: Nausea Oxycodone HCl (Oxyir) 5 - 10 mg PO Q4H PRN PRN PRN Reason: Pain Score 4-10/10 Last Admin: 07/18/19 08:23 Dose: 10 mg Documented by: Prochlorperazine Edisylate (Compazine Iv) 10 mg IV Q6H PRN PRN PRN Reason: NAUSEA Senna/Docusate Sodium (Senokot-S, Rowena-Colace) 0 tablet PO DAILY PRN PRN Reason: Constipation Last Admin: 07/18/19 08:23 Dose: 1 tablet Documented by: Simethicone (Mylicon) 80 mg PO PCHS PRN PRN Reason: Indigestion/stomach pain Sodium Chloride () 5 - 15 ml IV UD PRN PRN Reason: SALINE FLUSH Last Admin: 07/18/19 05:49 Dose: 10 ml Documented by: Medical Necessity - Tobacco Use Smoking Status: Never smoker Assessment/Plan All Active Problems (Last Reviewed 07/16/19 @ 13:21 by Myla Prather) tachycardia affecting management of mother (Acute) Variable heart rate decelerations, antepartum (Acute) Elevated blood pressure affecting in third trimester, antepartum (Acute) Palpitations (Acute) H/O section (Resolved) (Acute) Supervision of high risk , antepartum (Acute) Abdominal pain affecting (Resolved) Chest pain (Resolved) Left ureteral calculus (Resolved) Low lying placenta nos or without hemorrhage, second trimester (Resolved) Missed ab (Resolved) Partial placenta previa (Resolved) with nephrolithiasis (Resolved) Retained products of conception after miscarriage (Resolved) Threatened labor (Resolved) UTI in (Resolved) s/p LTCS PPD # 2 1. routine post care 2. breast feeding- support given 3. rh positive 4. rubella immune 5. restart at home insulin- metformin only at present follow bps
--- NOTE | 2019-07-18 10:00 | PCM.DCCSEC ---
Discharge Diet: No Restrictions Discharge Activity: May Not Drive - for 2 weeks, May not drive while taking narcotic pain medications., May Shower, May Take a Tub Bath - in 7 days May resume sexual activity in: 4-6 weeks Lifting Restrictions: 20 pounds Additional Activity Instructions:: Nothing in the vagina for 4-6 weeks. You may return to work/school in 6 weeks. Call your doctor if your incision/area has: Continuous Slow Oozing, Sudden Increased Bleeding, Increased Pain/ Swelling, Increased Redness, Foul Smelling Discharge Call your doctor if you observe: Fever of 101 or Higher, Using more than one pad per hour - for 2 hours Suture Line Care: Avoid Pulling/Pushing, Avoid Pinching/Bending Cleanse incision/area with: Keep Dressing Clean & Dry Additional Instructions: If you experience any of the following, contact your healthcare provider. Bleeding that soaks a pad every hour for 2 hours Fever 100.4 or higher Unrelieved incision or abdominal pain Swelling, redness, discharge or bleeding from your incision or episiotomy site Your incision begins to separate Problems urinating (including inability to urinate or burning while urinating). Visual changes Severe headache Flu-like symptoms Pain or redness in one of both of your breasts Pain, warmth, tenderness or swelling in your legs, especially the calf area Frequent nausea and vomiting Symptoms of depression or anxiety If you experience any of the following, call 911 or go to the nearest Emergency Room. Chest pain Problems breathing Seizure activity Partial or complete paralysis of a body part, slurred speech, weakness or drooping of the face, or a sudden inability to walk or hold your balance Allergies/Adverse Reactions: Allergies aspirin Allergy (Verified 07/16/19 13:23) Rash Penicillins Allergy (Verified 07/16/19 13:23) Rash ketorolac [From Toradol] Adverse Reaction (Verified 07/16/19 13:23) Other tachycardia PAPER TAPE Allergy (Uncoded 07/12/19 12:20) Other RED WELTS Medications to take at Discharge ergocalciferol (vitamin D2) 1,250 mcg (50,000 unit) capsule 50,000 unit PO OLSON 06/13/18 famotidine 40 mg tablet 40 mg PO DAILY PRN 06/13/18 Insulin Lispro 22 units SUBCUT 1700 02/26/19 Insulin NPH Human Isophane [Humulin N] 22 units SUBCUT 0700 02/26/19 metFORMIN HCl [Glucophage] 1,000 mg PO BIDCM 03/28/19 Insulin Lispro [Humalog] 16 unit SQ 0800 03/31/19 Insulin NPH Human [Humulin N Pen] 26 units SUBCUT QHS 03/31/19 Insulin Lispro [Humalog] 8 unit SUBCUT LUNCH 04/06/19 Ondansetron [Zofran Odt] 4 mg PO Q6H PRN PRN #30 tab 04/12/19 Docusate Sodium [Colace] 100 mg PO BID #60 cap 07/18/19 Naproxen [Naprosyn] 250 - 500 mg PO Q8H PRN PRN #30 tab 07/18/19 Oxycodone HCl/Acetaminophen [Percocet 5-325] 1 - 2 tablet PO Q6H PRN PRN 7 Days #15 tablet 07/18/19 The following prescriptions were given: Docusate Sodium [Colace] 100 mg PO BID #60 cap [email or web address] Naproxen [Naprosyn] 250 - 500 mg PO Q8H PRN PRN #30 tab PRN Reason: MILD PAIN Transmission Status[email or web address] Oxycodone HCl/Acetaminophen [Percocet 5-325] 1 - 2 tablet PO Q6H PRN PRN 7 Days #15 tablet PRN Reason: Pain Transmission Status[facility] Follow-Up: Call to make an appointment with your doctor for an incision check in 1-2 weeks. You will also need a 6 week post- follow up appointment. Test results from this visit will be discussed in further detail at your follow-up appointment, if applicable. Please Follow Up With: Zuleyma Collado MD - Call to make an appointment for an incision check in 1-2 [phone] When: You will need a post- check in 6 weeks. Please Follow Up With: Chris Chow MD - within 2 weeks. take 1/3 insulin at this point Primary Care Physician: Care Physician,No Primary [Primary Care Provider] -
== END 2019-07-18 12:45 | disposition home or self-care (01) | DRG 539 ==
PROVIDERS: Admitting Provider Obstetrics & Gynecology; Referring Provider Obstetrics & Gynecology; Visit Provider Obstetrics & Gynecology
DX: O34.211 Maternal care for low transverse scar from previous cesarean delivery (principal); O76 Abnormality in fetal heart rate and rhythm complicating labor and delivery; Z37.0 Single live birth; O24.32 Unspecified pre-existing diabetes mellitus in childbirth; O99.214 Obesity complicating childbirth; Z3A.38 38 weeks gestation of pregnancy; Z30.2 Encounter for sterilization; E66.01 Morbid (severe) obesity due to excess calories
CPT/HCPCS: 59025; 59050; 82565; 82570; 82962; 84156; 84450; 84460; 84550; 85025; 85027; 85610; 85730; 86850; 86900; 86901; 88302; 99218; J7120; A4216; G0378; J2405

== ENCOUNTER 2019-07-22 14:42 | Emergency (ER) | payer MEDICAID, SELFPAY ==
[2019-07-16 14:48] VITALS: BMI 46.4
[2019-07-22] VITALS (11 sets, daily range): BP systolic 106–172; BP diastolic 45–120; PULSE 91–117; RESP 16–20; TEMP 37.1–39.4; O2SAT 97–100; BMI 44.1
--- NOTE | 2019-07-22 15:16 | CT_ITS ---
STUDY: CT ABDOMEN AND PELVIS WITH CONTRAST REASON FOR EXAM: Female, 29 years old. ABDOMINAL PAIN, NAUSEA AND VOMITING, FEVER, 5 DAYS AGO, TUBAL LIGATION RADIATION DOSAGE (If Supplied By Facility): CTDIvol = ( 15.41 ) mGy, DLP = ( 1359.49 ) mGycm TECHNIQUE: Transaxial images were obtained from the dome of the diaphragm to the symphysis pubis without oral contrast. IV 100mL Isovue-300 was administered. Sagittal and coronal images were reconstructed. Individualized dose optimization techniques were used for this CT. COMPARISON: None. FINDINGS: The visualized lung bases are unremarkable. The visualized portions of the heart are within normal limits. Normal liver. There are surgical clips in the gallbladder fossa consistent with a prior cholecystectomy. Normal spleen. The body and tail of the pancreas are not visualized. Normal bilateral adrenal glands. Several small nonobstructing bilateral renal stones. The largest of this measures approximately 8 mm in the left lower pole kidney. Otherwise unremarkable bilateral kidneys without evidence for obstruction. Normal visualized stomach. Normal small intestine. Normal colon. The appendix is visualized and appears normal. Normal abdominal aorta. Normal inferior vena cava. Normal retroperitoneum. Normal urinary bladder. Enlarged uterus which is heterogeneous in appearance with small foci of endometrial cavity air. There is a small umbilical hernia containing fat. Postsurgical changes are noted consistent with recent . Right total hip arthroplasty. CT/Abdomen/Pelvis WITH Contrast IMPRESSION: uterus is heterogeneous with small foci of endometrial cancer now air. Cannot exclude retained products of conception or endometritis. Consider follow-up with a pelvic sonogram. Several small nonobstructing bilateral renal stones. Electronically Signed: Israel Howard, at 18:25 EST Tel , Service support ,
--- NOTE | 2019-07-22 15:25 | ED.VISSUMM ---
- ER Visit Summary Date of Service: 07/22/19 Chief Complaint: Abdominal pain History of Present Illness: The patient is a 29 F who presents with abdominal pain that began yesterday. Patient states the pain is sharp and diffuse across her abdomen. Patient states the pain is been constant since she woke up yesterday. Patient states her pain is worse with any movement and is better when she remains still. Patient admits to some nausea and vomiting. Patient denies any hematemesis or coffee-ground emesis. Patient denies any diarrhea, melena, or hematochezia. Patient denies any dysuria. Patient did have a recent 5 days ago. Patient states she is having some vaginal bleeding from the . Physical Examination: Vital signs are stable. Patient is afebrile with a temperature of 99.8. Patient is in no acute distress. Oral mucosa is pink and moist. Neck is supple. Trachea is midline. There is no JVD. Heart was regular rate and rhythm. Lungs are clear and equal bilaterally. Abdomen is soft. Bowel sounds are normal. There is diffuse tenderness. There is no rebound or guarding noted. Incision is clean and dry. There is no erythema, discharge, or drainage. Cranial nerves II through XII are intact. There are no focal motor or sensory deficits noted. Test Results: CBC shows normal white blood cell count. Hemoglobin was slightly low at 11.2. Comprehensive metabolic profile showed a mild hypokalemia 3.3. Urinalysis does not show any evidence of urinary tract infection. Lactate was normal at 1.3. CT scan of the abdomen and pelvis was obtained. There is a small focus of air in the uterus. This is most likely postsurgical. There is likely endometritis noted. These were interpreted by the radiologist and reviewed by myself. Emergency Department Course and Treatment: Patient was given IV fluids, Zofran, and morphine. Patient spiked a fever up to 102 here in the emergency department. Patient was given a dose of Tylenol for that. Patient was also given a dose of Dilaudid for continued pain. The case was discussed with Dr. Zuleyma Collado. She recommended giving the patient gentamicin and clindamycin here in the emergency department and writing prescriptions for doxycycline and Flagyl to go home with. She will follow-up with the patient this week. Patient understands and is agreeable with the plan. All questions were answered. Disposition: Discharge home Impression: Endometritis This note was generated with [employer] dictation software. It may contain incorrect words, spelling, and punctuation that were not noted in review of the chart prior to signing ED Disposition - Plan for ED Patient: Disposition: Home or Assisted Living Diagnosis: Endometritis Prescriptions: Doxycycline 100 mg PO BID #20 cap Prescription Printed metroNIDAZOLE [Flagyl] 500 mg PO Q6H #40 tab Prescription Printed Referrals: Care Physician,No Primary [Primary Care Provider] - Zuleyma Collado MD [STAFF PHYSICIAN] - Keep Edy appointment
[2019-07-22] MEDS: 0.9% Normal Saline 1,000 ML 1000 ML IV (15:37)
[2019-07-22] MEDS: Ondansetron 4 MG/2 ML Vial IV (15:38)
[2019-07-22] MEDS: Morphine 4 MG/ML Syringe IV (15:38)
--- NOTE | 2019-07-22 15:52 | NURSING ---
PT WITH SEVERE ABD PAIN THAT STARTED LAST NIGHT. RECENT CSECTION A D DC'D SAT. ABD WOUND INCISION WELL APPROX WITHOUT DRNG OR REDNESS. PT HYPERVENTILATING AND CRYING.
[2019-07-22 16:02] LABS: Absolute Lymphocyte Count 0.98 X10^3/uL (0.83-4.51); Absolute Neutrophil Count 6.6 X10^3/uL (2.0-7.7); Basophil# 0.02 X10^3/uL; Basophil% 0.2 % (0-1); Eosinophil# 0.16 X10^3/uL; Eosinophils% 1.9 % (0-5); Hematocrit 33.1 % (37-47); Hemoglobin 11.2 g/dL (12.0-15.0); Lymphocyte # 0.98 X10^3/ul (4.0); Lymphocyte % 11.7 % (19-41); Mean Corp Hgb Conc 33.8 g/dL (32-36); Mean Corpuscular Volume 97.6 fL (81-99); Mean Platelet Vol. 9.4 fl (6.2-12.0); Monocyte# 0.58 X10^3/uL; Monocyte% 6.9 % (0-10); NRBC Flagged by Analyzer 0 % (0-5); Neutrophil # 6.58 X10^3/uL (2.7-7.7); Neutrophil % 78.3 % (47-70); Platelet Count 292 K/mm3 (150-450); RBC Distribution Width CV 14.2 % (11.6-14.6); RBC Distribution Width SD 50.4 fl (35.1-43.9); Red Blood Count 3.39 M/mm3 (4.2-5.4); White Blood Count 8.4 K/mm3 (4.4-11.0)
[2019-07-22 16:06] LABS: ALB/GLOB Ratio 0.6 RATIO (0.9-2.4); AST(SGOT) 15 U/L (15-37); Alanine Aminotransfer ALT/SGPT 23 U/L (13-56); Albumin, Serum 2.6 g/dL (3.2-5.0); Alkaline Phosphatase 111 U/L (45-117); Anion Gap 7 (5-15); BUN 8 mg/dL (7-18); BUN/Creat Ratio 12.2 RATIO (10-20); Chloride 108 mmol/L (98-107); Creatinine, Serum 0.65 mg/dL (0.55-1.02); EST Glomerular Filtration Rate 115 mL/min (>60); Est Glom Filt Rate - Afr Amer 139 mL/min (>60); Estimated Creatinine Clearance 126.42 ml/min; Globulin 4.1 g/dL (2.2-4.2); Glucose 113 mg/dL (74-106); Lipase 47 U/L (73-393); Potassium 3.3 mmol/L (3.5-5.1); Protein, Total 6.7 g/dL (6.4-8.2); Sodium Level 142 mmol/L (136-145)
[2019-07-22] MEDS: HYDROmorphone 1 MG/ML Syringe IV ×2 (17:00→20:04)
[2019-07-22 17:56] LABS: Bacteria 0 SEEN /hpf (None Seen); Mucous, Urine 0 SEEN /hpf (<or=2+)
[2019-07-22 18:19] LABS: Color, Urine Yellow (Yellow); Glucose, Dipstick Normal (Normal); Ketone-Dipstick Negative (Negative); Leukocyte Esterase-Dipstick 25 /ul (Negative); Nitrite-Dipstick Negative (Negative); Occult Blood-Urine 250 /ul (Negative); Protein-Dipstick 15 mg/dl (Negative); Urine Bilirubin Dipstick Negative (Negative); Urine Clarity Sl. Cloudy (Clear); Urine Urobilinogen Normal (Normal)
--- NOTE | 2019-07-22 18:27 | ED.RN ---
MD AWARE OF PT TEMPERATURE, NO NEW ORDERS AT THIS TIME, MD WAITING FOR RESULTS OF CT.
[2019-07-22 18:30] LABS: Lactic Acid 1.3 mmol/L (0.4-1.9)
[2019-07-22 18:34] LABS: Red Blood Cells-Urine 25-50 SEEN /hpf (0-5)
[2019-07-22 18:35] LABS: Squamous Epithelial Cells - UA 0-5 SEEN /hpf (5-10); White Blood Cells 5-10 SEEN /hpf (0-5)
[2019-07-22] MEDS: Acetaminophen 325 MG Tablet 975 MG PO (19:48)
== END 2019-07-22 21:20 | disposition home or self-care (01) ==
PROVIDERS: Emergency Provider Emergency Medicine
DX: O86.12 Endometritis following delivery (principal); O90.89 Other complications of the puerperium, not elsewhere classified; R51 Headache; R07.9 Chest pain, unspecified; O99.215 Obesity complicating the puerperium; E66.9 Obesity, unspecified; O24.33 Unspecified pre-existing diabetes mellitus in the puerperium; E11.9 Type 2 diabetes mellitus without complications; Z79.84 Long term (current) use of oral hypoglycemic drugs
CPT/HCPCS: 74177; 80053; 81001; 83605; 83690; 85025; 87040; 87086; 87088; 96361; 96365; 96366; 96368; 96374; 96375; 96376; 99284; J7030; Q9967; A4216; J2405

== ENCOUNTER 2019-09-18 17:21 | Emergency (ER) | payer MEDICAID, SELFPAY ==
[2019-09-14 08:11] VITALS: BMI 44.1
[2019-09-18 17:22] VITALS: BP 133/88; PULSE 96; RESP 20; TEMP 36.1; O2SAT 97; BMI 43.9
--- NOTE | 2019-09-18 17:38 | CT_ITS ---
STUDY: CT ABDOMEN AND PELVIS WITHOUT CONTRAST REASON FOR EXAM: Female, 29 years old. Right flank pain. RADIATION DOSAGE (If Supplied By Facility): CTDIvol = ( 23.80 ) mGy, DLP = ( 1361.69 ) mGycm TECHNIQUE: Transaxial images were obtained from the dome of the diaphragm to the symphysis pubis without oral contrast, and without intravenous contrast. Sagittal and coronal images were reconstructed. Individualized dose optimization techniques were used for this CT. COMPARISON: 07/22/2019 FINDINGS: Evaluation of the abdominal viscera is limited in the absence of intravenous contrast. The visualized lung bases are clear. The visualized portions of the heart and pericardium are within normal limits. The patient is status post cholecystectomy. The liver is low in density, consistent with fatty infiltration. The spleen is enlarged, measuring 13 cm. The pancreas demonstrates an unremarkable unenhanced appearance. The adrenal glands are within normal limits. There are bilateral subcentimeter nonobstructing renal collecting system stones, measuring up to 5 mm. There are no ureteral stones. There is no hydronephrosis. Normal visualized stomach. There is no bowel obstruction or inflammation. The appendix is visualized and appears normal. The aorta is normal in caliber. There is no abdominal or pelvic free air, free fluid, fluid collection or lymphadenopathy. There are no destructive osseous lesions. The patient is status post right hip arthroplasty. CT/Abdomen/Pelvis without Cont IMPRESSION: Bilateral subcentimeter nonobstructing renal collecting system stones. No ureteral stones. No hydronephrosis. No bowel obstruction or inflammation. Normal appendix. Fatty liver. Splenomegaly. Electronically Signed: Paulie Multani, at 18:33 EDT Tel , Service support ,
--- NOTE | 2019-09-18 17:40 | ED.DCSUM_ITS ---
- ER Visit Summary Date of Service: 09/18/19 Chief Complaint: Right flank pain with a history of kidney stones History of Present Illness: The patient is a 29 F history of insulin-dependent diabetes and multiple prior kidney stones with 3 prior surgeries. She is also had a tubal ligation. Patient states that she has had right flank pain for 3 days. She woke up with it on Saturday morning. Associated nausea vomiting. Associated hematuria. No dysuria. No fever. Last menstrual period was 08/29/2019. She denies any trauma. Physical Examination: Younger female no acute distress vital signs stable afebrile. H EENT exam unremarkable. Lungs are clear. Heart regular rhythm no murmur. Abdomen soft nontender nondistended normal bowel sounds no peritoneal signs. Patient moving all 4 extremities are neurovascular intact. Back nontender. She complains of right flank pain but is not reproducibly tender. There is no bruising. Neurologically she is awake and alert with no focal motor deficits. Test Results: Urinalysis shows no signs of infection. No blood on the microscopic sample. CT flank study without contrast shows read by the radiologist and reviewed by me shows bilateral renal stones but no acute ureteral stone. No specific cause for her pain. Emergency Department Course and Treatment: Patient with a history of stones and prior surgeries for stone resection. Treated with IV fluids, Zofran and morphine. He was given a second dose of morphine. On repeat exam at 1931 she is doing well. We discussed all of her test results. Treatment Plan: Tylenol Motrin for pain. Follow-up if not improving. Disposition: Discharge Impression: Acute right flank pain of uncertain etiology possible passed kidney stone. History of multiple kidney stones History of diabetes This note was generated with [employer] dictation software. It may contain incorrect words, spelling, and punctuation that were not noted in review of the chart preeti or to signing ED Disposition - Plan for ED Patient: Referrals: Care Physician,No Primary [Primary Care Provider] -
[2019-09-18] MEDS: 0.9% Normal Saline 1,000 ML 1000 ML IV (17:50)
[2019-09-18] MEDS: Ondansetron 4 MG/2 ML Vial IV (17:51)
[2019-09-18] MEDS: morphine 8 MG/ML Syringe IV (17:52)
[2019-09-18 18:00] LABS: Bacteria 0 SEEN /hpf (None Seen); Mucous, Urine 0 SEEN /hpf (<or=2+); Red Blood Cells-Urine 0 SEEN /hpf (0-5)
[2019-09-18 18:06] LABS: Color, Urine Yellow (Yellow); Glucose, Dipstick Normal (Normal); Ketone-Dipstick 5 mg/dl (Negative); Leukocyte Esterase-Dipstick Negative /ul (Negative); Nitrite-Dipstick Negative (Negative); Occult Blood-Urine 25 /ul (Negative); Protein-Dipstick 30 mg/dl (Negative); Specific Gravity, Urine 1.025 (1.002-1.030); Urine Bilirubin Dipstick Negative (Negative); Urine Clarity Sl. Cloudy (Clear); Urine Urobilinogen 1 mg/dl (Normal)
[2019-09-18 18:34] LABS: Squamous Epithelial Cells - UA 0-5 SEEN /hpf (5-10); White Blood Cells 0-5 SEEN /hpf (0-5)
[2019-09-18 18:35] LABS: Amorphous Sediment 1+ URATE
[2019-09-18] MEDS: Morphine 4 MG/ML Syringe IV (19:32)
--- NOTE | 2019-09-18 19:32 | ED.DEP ---
ED Disposition - Plan for ED Patient: Disposition: Home or Assisted Living Instructions: ED Flank Pain Uncertain Cause Referrals: Elizabeth Montoya MD [STAFF PHYSICIAN] - 3-5 Days if not improving Additional Instructions: Tylenol and/or Motrin for pain. Strain your urine for possible passed kidney stone. The CAT scan showed stones in your kidneys but not an acute stone causing the pain. You may have already passed it in your bladder. Follow-up with your urologist if not improving.
[2019-09-18 19:34] VITALS: BP 127/89; PULSE 93; RESP 16; O2SAT 100
[2019-09-18 19:35] VITALS: BP 127/89; PULSE 93; RESP 16; O2SAT 100
== END 2019-09-18 19:39 | disposition home or self-care (01) ==
PROVIDERS: Emergency Provider Emergency Medicine
DX: R10.9 Unspecified abdominal pain (principal); N20.0 Calculus of kidney; E11.9 Type 2 diabetes mellitus without complications; Z87.442 Personal history of urinary calculi; Z79.4 Long term (current) use of insulin
CPT/HCPCS: 74176; 81001; 96361; 96374; 96375; 96376; 99283; J7030; A4216; J2405

== ENCOUNTER 2019-09-21 16:03 | Emergency (ER) | payer MEDICAID, SELFPAY ==
[2019-09-21 16:04] VITALS: BP 148/98; PULSE 115; RESP 17; TEMP 37.1; O2SAT 95; BMI 43.4
--- NOTE | 2019-09-21 17:01 | CT_ITS ---
STUDY: CT ABDOMEN AND PELVIS WITHOUT CONTRAST REASON FOR EXAM: Female, 29 years old. ABD PAIN X 4 DAYS. N/V THIS AM. Hx of asthma, diabetes. Prior cholecystectomy and hip surgeries for dysplasia RADIATION DOSAGE (If Supplied By Facility): CTDIvol = ( 18.30 ) mGy, DLP = ( 1581.60 ) mGycm TECHNIQUE: Transaxial images were obtained from the dome of the diaphragm to the symphysis pubis without oral contrast, and without intravenous contrast. Sagittal and coronal images were reconstructed. Individualized dose optimization techniques were used for this CT. COMPARISON: 09/18/2019 CT abdomen and pelvis at prior CT 03/28/2019. FINDINGS: The visualized lung bases are unremarkable. The visualized portions of the heart are within normal limits. Normal liver. There is a prior cholecystectomy. There is increased dilation of the common bile duct and intrahepatic bile ducts when compared to 2019 exam. This is unchanged when compared to the 09/18/2019 exam. The maximum diameter of the common bile duct is 1 cm. Normal spleen. Pancreas unchanged. 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 Normal bilateral adrenal glands. There are stable subcentimeter bilateral renal calculi and no hydronephrosis.. Normal visualized stomach. Normal small intestine. Normal colon. Appendix is unchanged when compared to prior imaging Normal abdominal aorta. Normal inferior vena cava. Normal retroperitoneum. Normal urinary bladder. There is a 1.1 cm enhancing left adnexa ovarian cyst. Normal abdominal wall. Stable multilevel Schmorl''s nodes thoracic and lumbar spine. There is streak artifact from right hip prosthesis. CT/Abdomen/Pelvis W IV Cont ONLY IMPRESSION: There is a prior cholecystectomy. There is increased dilation of the common bile duct and intrahepatic bile ducts when compared to 2019 exam. This is unchanged when compared to the 09/18/2019 exam. The maximum diameter of the common bile duct is 1 cm. This may be secondary to progressive dilation due to the cholecystectomy however pathologic enlargement cannot be excluded. MRI MRCP would be should be considered. Correlation with laboratory values and clinical history recommended Stable subcentimeter bilateral renal calculi, no hydronephrosis Stable multilevel Schmorl''s nodes thoracic and lumbar spine. There is streak artifact from right hip prosthesis. 1.1 cm enhancing left ovarian corpus luteal cyst Electronically Signed: Rolly Miller, at 19:39 EDT Tel , Service support ,
[2019-09-21] MEDS: Ondansetron 4 MG/2 ML Vial IV (17:22)
[2019-09-21] MEDS: 0.9% Normal Saline 1,000 ML 1000 ML IV (17:22)
[2019-09-21] MEDS: morphine 8 MG/ML Syringe IV (17:22)
[2019-09-21 17:37] LABS: Absolute Lymphocyte Count 2.92 X10^3/uL (0.83-4.51); Absolute Neutrophil Count 10.9 X10^3/uL (2.0-7.7); Basophil# 0.05 X10^3/uL; Basophil% 0.3 % (0-1); Eosinophil# 0.14 X10^3/uL; Eosinophils% 0.9 % (0-5); Hematocrit 39.5 % (37-47); Hemoglobin 13.7 g/dL (12.0-15.0); Lymphocyte # 2.92 X10^3/ul (4.0); Lymphocyte % 19.2 % (19-41); Mean Corp Hgb Conc 34.7 g/dL (32-36); Mean Corpuscular Hgb 30.3 pg (27.0-32.0); Mean Corpuscular Volume 87.4 fL (81-99); Mean Platelet Vol. 9.3 fl (6.2-12.0); Monocyte# 1.14 X10^3/uL; Monocyte% 7.5 % (0-10); NRBC Flagged by Analyzer 0 % (0-5); Neutrophil # 10.89 X10^3/uL (2.7-7.7); Neutrophil % 71.7 % (47-70); Platelet Count 341 K/mm3 (150-450); RBC Distribution Width CV 13.2 % (11.6-14.6); RBC Distribution Width SD 41.5 fl (35.1-43.9); Red Blood Count 4.52 M/mm3 (4.2-5.4); White Blood Count 15.2 K/mm3 (4.4-11.0)
[2019-09-21 17:50] LABS: Internal QC Validated? YES +Cl - CLEAR BKGD; Pregnancy, Urine Negative Negative
[2019-09-21 17:52] LABS: Bacteria 0 SEEN /hpf (None Seen); Mucous, Urine 0 SEEN /hpf (<or=2+); White Blood Cells 0 SEEN /hpf (0-5)
[2019-09-21 17:55] LABS: AST(SGOT) 31 U/L (15-37); Alanine Aminotransfer ALT/SGPT 42 U/L (13-56); Albumin, Serum 3.8 g/dL (3.2-5.0); Alkaline Phosphatase 118 U/L (45-117); Anion Gap 8 (5-15); BUN 13 mg/dL (7-18); BUN/Creat Ratio 19.8 RATIO (10-20); Calcium,Total 8.9 mg/dL (8.5-10.1); Chloride 108 mmol/L (98-107); Creatinine, Serum 0.66 mg/dL (0.55-1.02); EST Glomerular Filtration Rate 115 mL/min (>60); Est Glom Filt Rate - Afr Amer 139 mL/min (>60); Estimated Creatinine Clearance 124.51 ml/min; Globulin 3.8 g/dL (2.2-4.2); Glucose 138 mg/dL (74-106); Lipase 50 U/L (73-393); Potassium 3.9 mmol/L (3.5-5.1); Protein, Total 7.6 g/dL (6.4-8.2); Sodium Level 138 mmol/L (136-145)
[2019-09-21 17:59] LABS: Color, Urine Yellow (Yellow); Glucose, Dipstick Normal (Normal); Ketone-Dipstick Negative (Negative); Leukocyte Esterase-Dipstick Negative /ul (Negative); Nitrite-Dipstick Negative (Negative); Occult Blood-Urine Negative /ul (Negative); Protein-Dipstick 30 mg/dl (Negative); Specific Gravity, Urine 1.025 (1.002-1.030); Urine Bilirubin Dipstick Negative (Negative); Urine Clarity Sl. Cloudy (Clear); Urine Urobilinogen Normal (Normal)
[2019-09-21 18:15] LABS: Lactic Acid 1.8 mmol/L (0.4-1.9)
[2019-09-21 18:20] LABS: Red Blood Cells-Urine 0-5 SEEN /hpf (0-5); Squamous Epithelial Cells - UA 0-5 SEEN /hpf (5-10)
--- NOTE | 2019-09-21 18:22 | ED.VIS.GI ---
History of Present Illness Chief Complaint: Abd Pain Informant: Patient - Abdominal Pain/Flank Pain Onset: Yesterday Context: Gradual Onset Timing: Continuous Quality: Aching, Sharp Location: Diffuse Maximum Severity: Severe Worsened by: Food Relieved by: Nothing - Nausea/Vomiting/Emesis GI Symptom: Nausea, Vomiting - Diarrhea/Melena/Hematochezia GI Symptom: Negative for: Diarrhea, Melena, Hematochezia Associated Symptoms: Dysuria. Negative for: Frequency, Hematuria, Urgency LMP: 3 weeks Narrative: Patient is a 29-year-old female with no significant past medical history presenting with diffuse abdominal pain. Patient states she was having some abdominal pain 5 days ago and was in the ER 3 days ago. At that time she was told she likely passed a kidney stone. She knows for the past 2 days her pain is been different. It is now diffuse and more severe. She states it is worse when she eats or drinks anything. She had 6 episodes of nonbilious nonbloody vomit today. She states she has been having normal bowel movements with no diarrhea. She does she is had some associated dysuria and low back pain that is bilateral. She denies any associated vaginal bleeding or discharge. Patient's last menstrual period was 08/29/2019. She notes he is 2 months from a . She denies associated chest pain, shortness of breath or fever. Patient's been taking Naprosyn with no relief of her symptoms. Past Medical History - Allergies and Home Meds Allergies/Adverse Reactions: Allergies aspirin Allergy (Verified 09/21/19 16:04) Rash Penicillins Allergy (Verified 09/21/19 16:04) Rash tramadol Adverse Reaction (Severe, Verified 09/21/19 16:04) Palpitations ketorolac [From Toradol] Adverse Reaction (Verified 09/21/19 16:04) Other tachycardia PAPER TAPE Allergy (Uncoded 09/21/19 16:04) Other RED WELTS Primary Care Physician: Isaiah Calles III, MD [STAFF PHYSICIAN] - Past Medical History: - - Pyelonephritis, diabetes mellitus Surgical History: cholecystectomy, - - , right hip replacement, D&C Smoking Status: Never smoker Review of Systems General: Denies: Chills, Fever, Sweats Eyes: Denies: Visual changes - bilaterally, Diplopia ENT: Denies: Rhinorrhea, Sore throat Cardiovascular: Denies: Chest pain, Palpitations Respiratory: Denies: Dyspnea, Cough, Dyspnea on exertion Gastrointestinal: Reports: Abdominal pain, Nausea, Vomiting. Denies: Diarrhea, Constipation, Melena, Hematochezia Genitourinary: Denies: Dysuria, Hematuria, Frequency Musculoskeletal: Denies: Back pain, Extremity Pain Skin: Denies: Rash, Wounds Neurological: Denies: Headache, Weakness, Numbness Physical Exam Vital Signs/Narrative: Vital Signs Temp Pulse Resp BP Pulse Ox 09/21/19 16:04 98.8 F 115 H 17 148/98 H 95 Inital Vital Signs reviewed: Yes General: Well nourished, Well developed, Obese, No Acute Distress, - - tearful Head: Normocephalic, Atraumatic Eyes: Perrl, EOMI ENT: Moist mucous membranes, No rhinorrhea Neck: Supple, Nontender Cardiovascular: Regular rate, Regular rhythm, No murmurs Respiratory: No distress, CTA bilaterally, Chest nontender Abdomen: Soft, Nondistended, Normal bowel sounds, Tender - diffuse. Negative for: Guarding, Rebound tenderness, Mass : - - Nonpalpable uterus on abdominal exam Back: Nontender, Normal Inspection Extremities: Nontender, No edema Skin: Normal color, No rash Neurological: Alert, Oriented x3, Cranial nerves II-XII grossly intact, Normal Strength, Normal Sensation Psychological: Normal affect, Normal Mood Diagnostic/Tx/Re-eval Clinical Impression(s) from Imaging Studies Abdomen/Pelvis CT 09/21/19 17:01 IMPRESSION: There is a prior cholecystectomy. There is increased dilation of the common bile duct and intrahepatic bile ducts when compared to 2019 exam. This is unchanged when compared to the 09/18/2019 exam. The maximum diameter of the common bile duct is 1 cm. This may be secondary to progressive dilation due to the cholecystectomy however pathologic enlargement cannot be excluded. MRI MRCP would be should be considered. Correlation with laboratory values and clinical history recommended Stable subcentimeter bilateral renal calculi, no hydronephrosis Stable multilevel Schmorl''s nodes thoracic and lumbar spine. There is streak artifact from right hip prosthesis. 1.1 cm enhancing left ovarian corpus luteal cyst Electronically Signed: Rolly Miller, at 19:39 EDT Tel , Service support , Laboratory Data 09/21/19 09/21/19 09/21/19 16:25 16:25 17:21 WBC 15.2 H RBC 4.52 Hgb 13.7 Hct 39.5 MCV 87.4 MCH 30.3 MCHC 34.7 RDW Std Deviation 41.5 RDW Coeff of Paty 13.2 Plt Count 341 MPV 9.3 Immature Gran % (Auto) 0.400 Neut % (Auto) 71.7 H Lymph % (Auto) 19.2 [place] % (Auto) 7.5 Eos % (Auto) 0.9 Baso % (Auto) 0.3 Absolute Neuts (auto) 10.9 H Absolute Lymphs (auto) 2.92 Nucleated RBC % 0 Sodium Potassium Chloride Carbon Dioxide Anion Gap BUN Creatinine Estim Creat Clear Calc Est GFR (MDRD) Af Amer Est GFR (MDRD) Non-Af BUN/Creatinine Ratio Glucose Lactic Acid Calcium Total Bilirubin AST ALT Alkaline Phosphatase Total Protein Albumin Globulin Albumin/Globulin Ratio Lipase Urine Color Yellow Urine Clarity Sl. Cloudy Urine pH 5.0 Ur Specific [place] 1.025 Urine Protein 30 H Urine Glucose (UA) Normal Urine Ketones Negative Urine Occult Blood Negative Urine Nitrite Negative Urine Bilirubin Negative Urine Urobilinogen Normal Ur Leukocyte Esterase Negative Urine RBC 0-5 SEEN Urine WBC 0 SEEN Ur Squamous Epith Cells 0-5 SEEN Urine Bacteria 0 SEEN Urine Mucus 0 SEEN Urine Test Negative 09/21/19 09/21/19 17:21 17:21 WBC RBC Hgb Hct MCV MCH MCHC RDW Std Deviation RDW Coeff of Paty Plt Count MPV Immature Gran % (Auto) Neut % (Auto) Lymph % (Auto) [place] % (Auto) Eos % (Auto) Baso % (Auto) Absolute Neuts (auto) Absolute Lymphs (auto) Nucleated RBC % Sodium 138 Potassium 3.9 Chloride 108 H Carbon Dioxide 22.0 Anion Gap 8 BUN 13 Creatinine 0.66 Estim Creat Clear Calc 124.51 Est GFR (MDRD) Af Amer 139 Est GFR (MDRD) Non-Af 115 BUN/Creatinine Ratio 19.8 Glucose 138 H Lactic Acid 1.8 Calcium 8.9 Total Bilirubin 1.30 H AST 31 ALT 42 Alkaline Phosphatase 118 H Total Protein 7.6 Albumin 3.8 Globulin 3.8 Albumin/Globulin Ratio 1.0 Lipase 50 L Urine Color Urine Clarity Urine pH Ur Specific [place] Urine Protein Urine Glucose (UA) Urine Ketones Urine Occult Blood Urine Nitrite Urine Bilirubin Urine Urobilinogen Ur Leukocyte Esterase Urine RBC Urine WBC Ur Squamous Epith Cells Urine Bacteria Urine Mucus Urine Test - Medical Decision Making Patient is evaluated for diffuse abdominal pain that is worse over the past 2 days. Patient appears tearful and distressed from her pain however she is hemodynamically stable. Her abdomen is soft and diffusely tender. It is not peritoneal. Because of her degree of discomfort I did obtain lactate. This was negative. Patient's work-up is significant for a leukocytosis. This might be reactive from her vomiting today. No obvious source of infection is found. CT the abdomen pelvis with IV contrast does not show any acute intra-abdominal pathology.CMP is significant for a very mildly elevated total bilirubin of 1.3. Chart review shows that patient is active and higher than this in the past and this is likely her baseline. Patient does have a history of cholecystectomy. She does not have any tenderness in her right upper quadrant. She does not have a transaminitis. I do not suspect choledocholithiasis or a sending cholangitis at this time. Patient denies any vaginal symptoms. I have a lower suspicion for PID or endometritis. Urinalysis is not consistent with infection. Patient is initially given morphine for pain control and then redosed with Bentyl. She be discharged home in a course of Bentyl. Patient does not have a PCP so she is referred to PCP often no doc list. Patient is counseled on signs and symptoms requiring return to the emergency room. Patient verbalizes agreement and understand this plan. Patient discharged home in stable and improved condition. ED Disposition - Plan for ED Patient: Disposition: Home or Assisted Living Diagnosis: Abdominal pain of unknown etiology Instructions: ED Abdominal Pain Unkn Cause Fem Prescriptions: Dicyclomine HCl [Bentyl] 20 mg PO TIDAC PRN #20 cap PRN Reason: Gi Cramping Prescription Printed Referrals: Isaiah Calles III, MD [STAFF PHYSICIAN] -
[2019-09-21 18:58] VITALS: BP 121/65; PULSE 85; RESP 16; O2SAT 99
[2019-09-21 20:09] VITALS: RESP 18
[2019-09-21 20:43] VITALS: BP 121/65; PULSE 85; RESP 16; TEMP 36.6
[2019-09-21] MEDS: Dicyclomine 10 MG Capsule 20 MG PO (20:46)
== END 2019-09-21 20:49 | disposition home or self-care (01) ==
PROVIDERS: Emergency Provider Emergency Medicine
DX: R10.84 Generalized abdominal pain (principal); N20.0 Calculus of kidney; N83.12 Corpus luteum cyst of left ovary; M51.44 Schmorl's nodes, thoracic region; M51.46 Schmorl's nodes, lumbar region; E11.9 Type 2 diabetes mellitus without complications; Z87.448 Personal history of other diseases of urinary system; Z90.49 Acquired absence of other specified parts of digestive tract; Z79.84 Long term (current) use of oral hypoglycemic drugs
CPT/HCPCS: 74177; 80053; 81001; 81025; 83605; 83690; 85025; 96361; 96374; 96375; 99285; J7030; Q9967; A4216; J2405

== ENCOUNTER → 2019-09-30 11:55 | Outpatient (CLI) | payer MEDICAID, SELFPAY ==
[2019-09-21 16:04] VITALS: BMI 43.4
--- NOTE | 2019-09-30 12:10 | RAD_ITS ---
STUDY: X-RAY - ABDOMEN/PELVIS REASON FOR EXAM: Female, 29 years old. Calculus of kidney TECHNIQUE: Single AP view of the abdomen / pelvis. COMPARISON: None. FINDINGS: There is a moderate amount of colonic fecal material. The patient is status post cholecystectomy. There are 2 tiny calcifications overlying the lower pole calyx of the left kidney. Larger measuring 3 mm. Normal soft tissue structures. Prior right total hip replacement. RAD/Abdomen Single View IMPRESSION: 2 small calcifications are seen in the lower pole calyx of the left kidney. The larger measuring 3 mm. Electronically Signed: Jamison Panchal, at 13:58 EDT , Service support ,
== END ==
LOC: MTLAB 11:59 → MTRAD 12:06
PROVIDERS: Referring Provider Urology; Visit Provider Urology
DX: N20.0 Calculus of kidney (principal)
CPT/HCPCS: 74018

== ENCOUNTER 2019-10-12 17:39 | Emergency (ER) | payer MEDICAID, SELFPAY ==
[2019-10-12 17:40] VITALS: BP 127/87; PULSE 122; RESP 18; TEMP 36.6; O2SAT 96; BMI 44.9
[2019-10-12 18:57] LABS: Bacteria 0 SEEN /hpf (None Seen); Mucous, Urine 0 SEEN /hpf (<or=2+)
[2019-10-12 19:00] LABS: Color, Urine Yellow (Yellow); Glucose, Dipstick Normal (Normal); Ketone-Dipstick 5 mg/dl (Negative); Leukocyte Esterase-Dipstick Negative /ul (Negative); Nitrite-Dipstick Negative (Negative); Occult Blood-Urine 150 /ul (Negative); Protein-Dipstick 30 mg/dl (Negative); Specific Gravity, Urine 1.025 (1.002-1.030); Urine Bilirubin Dipstick Negative (Negative); Urine Clarity Clear (Clear); Urine Urobilinogen Normal (Normal)
[2019-10-12 19:11] LABS: Red Blood Cells-Urine 0-5 SEEN /hpf (0-5); Squamous Epithelial Cells - UA 5-10 SEEN /hpf (5-10); White Blood Cells 0-5 SEEN /hpf (0-5)
[2019-10-12 19:39] VITALS: BP 120/75; PULSE 101; RESP 18; O2SAT 98
[2019-10-12 19:42] VITALS: BP 120/75; PULSE 101; RESP 18; TEMP 36.7; O2SAT 97
[2019-10-12 20:00] VITALS: BP 120/75; PULSE 101; RESP 18; TEMP 36.7; O2SAT 97
--- NOTE | 2019-10-12 20:04 | CT_ITS ---
STUDY: CT ABDOMEN AND PELVIS WITHOUT CONTRAST REASON FOR EXAM: Female, 29 years old. Flank pain with nausea and vomiting history of kidney stones and pyelonephritis. RADIATION DOSAGE (If Supplied By Facility): CTDIvol = ( 24.11 ) mGy, DLP = ( 1373.19 ) mGycm TECHNIQUE: Transaxial images were obtained from the dome of the diaphragm to the symphysis pubis without oral contrast, and without intravenous contrast. Sagittal and coronal images were reconstructed. Individualized dose optimization techniques were used for this CT. COMPARISON: None. FINDINGS: The visualized lung bases are unremarkable. The visualized portions of the heart are within normal limits. Normal liver. There are surgical clips in the gallbladder fossa consistent with a prior cholecystectomy. Normal spleen. Normal pancreas. Normal bilateral adrenal glands. Normal right kidney. Normal right ureter. The left kidney is of normal size and contour. There are at least 2 lower pole renal calculi. The largest measures 5 mm. There is no hydronephrosis. Normal left ureter. Normal stomach. Normal small intestine. Normal colon. The appendix is visualized and appears normal. Normal abdominal aorta. Normal inferior vena cava. Normal retroperitoneum. Normal urinary bladder. Normal-appearing uterus and adnexa. There is no pelvic lymphadenopathy. No free air or free fluid is seen within the peritoneal cavity. Umbilical hernia of omental fat. Mild degenerative changes lumbar spine. There is a right artificial hip. CT/Abdomen/Pelvis without Cont IMPRESSION: 1. Nonobstructing left renal calculi. 2. Status post cholecystectomy. 3. Right artificial hip. Electronically Signed: Claude Gómez DO at 21:16 EDT Tel [phone], Service support ,
--- NOTE | 2019-10-12 20:12 | ED.DCSUM_ITS ---
History of Present Illness Chief Complaint: Abd Pain Informant: Patient Onset: Weeks - 2 to 3 weeks Context: Gradual Onset Timing: Waxes and wanes Current Severity: Moderate Maximum Severity: Severe Narrative: Patient presents secondary to bilateral flank pain, left worse than right. Symptoms been ongoing for the past couple of weeks. She was seen by Dr. Montoya. She was told she does have some kidney stones in her left kidney but Dr. Montoya does not believe this is the acute cause of her pain. Patient states she has now developed nausea and vomiting secondary to pain. She denies fever or chills. No urinary symptoms. - Past Medical History (1) Kidney stone Status: Chronic (2) Diabetes mellitus Status: Chronic Past Medical History - Allergies and Home Meds Allergies/Adverse Reactions: Allergies aspirin Allergy (Verified 10/12/19 17:42) Rash Penicillins Allergy (Verified 10/12/19 17:42) Rash tramadol Adverse Reaction (Severe, Verified 10/12/19 17:42) Palpitations ketorolac [From Toradol] Adverse Reaction (Verified 10/12/19 17:42) Other tachycardia PAPER TAPE Allergy (Uncoded 10/12/19 17:42) Other RED WELTS Primary Care Physician: Elizabeth Montoya MD [STAFF PHYSICIAN] - Prior records reviewed: Yes Surgical History: cholecystectomy, - - , right hip replacement, D&C Lives: With Family Smoking Status: Never smoker Review of Systems General: Denies: Chills, Fever Eyes: Denies: Visual changes - bilaterally ENT: Denies: Bilateral ear pain Cardiovascular: Denies: Chest pain Respiratory: Denies: Dyspnea, Cough Gastrointestinal: Reports: Abdominal pain, Nausea, Vomiting Genitourinary: Denies: Dysuria Musculoskeletal: Denies: Swelling, Extremity Pain Skin: Denies: Rash Neurological: Denies: Headache Hematologic: Denies: Easy bruising, Easy bleeding Allergy: Denies: Uticaria Physical Exam Vital Signs/Narrative: Vital Signs Temp Pulse Resp BP Pulse Ox 10/12/19 17:40 97.8 F 122 H 18 127/87 H 96 Inital Vital Signs reviewed: Yes General: Well nourished, Well developed Head: Normocephalic ENT: Moist mucous membranes Neck: Supple Cardiovascular: Regular rate, Regular rhythm Respiratory: No distress, CTA bilaterally Abdomen: Soft, Tender - Mild lower abdominal tenderness., Hypoactive bowel sounds. Negative for: Guarding, Rebound tenderness Back: CVA tenderness Extremities: Nontender Skin: Normal color Neurological: Alert, Oriented x3 Psychological: Normal affect Diagnostic/Tx/Re-eval Impressions Abdomen/Pelvis CT 10/12/19 20:04 IMPRESSION: 1. Nonobstructing left renal calculi. 2. Status post cholecystectomy. 3. Right artificial hip. Electronically Signed: Claude GómezDO at 21:16 EDT Tel [phone], Service support , 10/12/19 20:04 Abdomen/Pelvis without Cont [CT] Stat Laboratory Results 10/12/19 10/12/19 10/12/19 18:50 20:13 20:13 WBC 11.5 H RBC 4.60 Hgb 14.1 Hct 40.2 MCV 87.4 MCH 30.7 MCHC 35.1 RDW Std Deviation 42.0 RDW Coeff of Paty 13.2 Plt Count 353 MPV 8.9 Immature Gran % (Auto) 0.400 Neut % (Auto) 57.6 Lymph % (Auto) 33.4 [place] % (Auto) 6.6 Eos % (Auto) 1.5 Baso % (Auto) 0.5 Absolute Neuts (auto) 6.6 Absolute Lymphs (auto) 3.84 Nucleated RBC % 0 Sodium 141 Potassium 3.7 Chloride 105 Carbon Dioxide 26.0 Anion Gap 10 BUN 16 Creatinine 0.75 Estim Creat Clear Calc 109.57 Est GFR (MDRD) Af Amer 118 Est GFR (MDRD) Non-Af 98 BUN/Creatinine Ratio 21.2 H Glucose 146 H Calcium 9.7 Serum , Qual Urine Color Yellow Urine Clarity Clear Urine pH 5.0 Ur Specific [place] 1.025 Urine Protein 30 H Urine Glucose (UA) Normal Urine Ketones 5 H Urine Occult Blood 150 H Urine Nitrite Negative Urine Bilirubin Negative Urine Urobilinogen Normal Ur Leukocyte Esterase Negative Urine RBC 0-5 SEEN Urine WBC 0-5 SEEN Ur Squamous Epith Cells 5-10 SEEN Urine Bacteria 0 SEEN Urine Mucus 0 SEEN 10/12/19 20:13 WBC RBC Hgb Hct MCV MCH MCHC RDW Std Deviation RDW Coeff of Paty Plt Count MPV Immature Gran % (Auto) Neut % (Auto) Lymph % (Auto) [place] % (Auto) Eos % (Auto) Baso % (Auto) Absolute Neuts (auto) Absolute Lymphs (auto) Nucleated RBC % Sodium Potassium Chloride Carbon Dioxide Anion Gap BUN Creatinine Estim Creat Clear Calc Est GFR (MDRD) Af Amer Est GFR (MDRD) Non-Af BUN/Creatinine Ratio Glucose Calcium Serum , Qual NEGATIVE Urine Color Urine Clarity Urine pH Ur Specific [place] Urine Protein Urine Glucose (UA) Urine Ketones Urine Occult Blood Urine Nitrite Urine Bilirubin Urine Urobilinogen Ur Leukocyte Esterase Urine RBC Urine WBC Ur Squamous Epith Cells Urine Bacteria Urine Mucus - Medical Decision Making Patient was initially given IV fluids, morphine, and Zofran. This was followed by a dose of Dilaudid. Test results are discussed with the patient. She does have evidence of left-sided renal stones and does have blood noted on microscopic urine. I did advise her that she may have recently passed a stone b ut this time there is no evidence of ureteral dilatation. Patient be given [place] and Zofran for home. She is to follow-up with her family doctor as well as with Dr. Montoya. ED Disposition - Plan for ED Patient: Disposition: Home or Assisted Living Diagnosis: Flank pain Instructions: ED Flank Pain Uncertain Cause Prescriptions: Hydrocodone Bitart/Apap 5-325 [[place] 5MG-325MG] 1 tab PO Q6H PRN PRN 3 Days #10 tab PRN Reason: Pain Prescription Printed Ondansetron [Zofran Odt] 4 mg PO Q8H PRN PRN #10 tab PRN Reason: Nausea Prescription Printed Referrals: Elizabeth Montoya MD [STAFF PHYSICIAN] -
[2019-10-12 20:23] LABS: Absolute Lymphocyte Count 3.84 X10^3/uL (0.83-4.51); Absolute Neutrophil Count 6.6 X10^3/uL (2.0-7.7); Basophil# 0.06 X10^3/uL; Basophil% 0.5 % (0-1); Eosinophil# 0.17 X10^3/uL; Eosinophils% 1.5 % (0-5); Hematocrit 40.2 % (37-47); Hemoglobin 14.1 g/dL (12.0-15.0); Lymphocyte # 3.84 X10^3/ul (4.0); Lymphocyte % 33.4 % (19-41); Mean Corp Hgb Conc 35.1 g/dL (32-36); Mean Corpuscular Hgb 30.7 pg (27.0-32.0); Mean Corpuscular Volume 87.4 fL (81-99); Mean Platelet Vol. 8.9 fl (6.2-12.0); Monocyte# 0.76 X10^3/uL; Monocyte% 6.6 % (0-10); NRBC Flagged by Analyzer 0 % (0-5); Neutrophil # 6.63 X10^3/uL (2.7-7.7); Neutrophil % 57.6 % (47-70); Platelet Count 353 K/mm3 (150-450); RBC Distribution Width CV 13.2 % (11.6-14.6); White Blood Count 11.5 K/mm3 (4.4-11.0)
[2019-10-12] MEDS: Morphine 4 MG/ML Syringe IV (20:23)
[2019-10-12] MEDS: Ondansetron 4 MG/2 ML Vial IV (20:23)
[2019-10-12] MEDS: 0.9% Normal Saline 1,000 ML 150 ML IV (20:24)
[2019-10-12 20:36] LABS: Internal QC Validated? YES +Cl - CLEAR BKGD; Pregnancy, Serum, hCG Quali. NEGATIVE Negative
[2019-10-12 20:37] LABS: Anion Gap 10 (5-15); BUN 16 mg/dL (7-18); BUN/Creat Ratio 21.2 RATIO (10-20); Calcium,Total 9.7 mg/dL (8.5-10.1); Chloride 105 mmol/L (98-107); Creatinine, Serum 0.75 mg/dL (0.55-1.02); EST Glomerular Filtration Rate 98 mL/min (>60); Est Glom Filt Rate - Afr Amer 118 mL/min (>60); Estimated Creatinine Clearance 109.57 ml/min; Glucose 146 mg/dL (74-106); Potassium 3.7 mmol/L (3.5-5.1); Sodium Level 141 mmol/L (136-145)
[2019-10-12] MEDS: HYDROmorphone 0.5 MG/0.5 ML SYRINGE IV (21:38)
[2019-10-12 21:39] VITALS: BP 134/78; PULSE 90; RESP 18; TEMP 36.8; O2SAT 96
== END 2019-10-12 22:54 | disposition home or self-care (01) ==
PROVIDERS: Emergency Provider Emergency Medicine
DX: N20.0 Calculus of kidney (principal); E11.9 Type 2 diabetes mellitus without complications; Z87.442 Personal history of urinary calculi; Z90.49 Acquired absence of other specified parts of digestive tract; Z79.84 Long term (current) use of oral hypoglycemic drugs
CPT/HCPCS: 74176; 80048; 81001; 84703; 85025; 96361; 96374; 96375; 99283; J7030; A4216; J2405

== ENCOUNTER 2019-10-20 06:47 | Day surgery (SDC) | payer MEDICAID, SELFPAY ==
[2019-10-20] VITALS (9 sets, daily range): BP systolic 105–144; BP diastolic 30–73; PULSE 77–108; RESP 14–20; TEMP 36.3–36.7; O2SAT 93–100; BMI 44.3
--- NOTE | 2019-10-20 07:27 | PCM.HP.STD ---
Problem List (1) Back pain Status: Acute (2) Kidney stone Status: Chronic History of Present Illness Date of Admission: 10/20/19 Chief Complaint: left flank pain, left renal stones The patient is a 29 year old F with known left renal calculi. She has had recurrent issues with flank pain, sometimes associated with nausea and vomiting. After discussing the risks, benefits and alternatives including the risk of COVID-19, the patient has decided to proceed with surgical intervention. Past Medical History Past Medical History (Chronic Problems): Chronic Problems (Last Reviewed 09/14/19 @ 08:[address] Chris Chow MD) Kidney stone (Chronic) Diabetes mellitus (Chronic) Medical History: Medical History (Last Reviewed 10/20/19 @ 07:[address] Elizabeth Montoya MD) Diabetes mellitus (Chronic) E11.9 Frequent headaches R51 History of kidney stones Z87.442 Seasonal allergies J30.2 Vision problems H54.7 Vitamin D deficiency E55.9 Vitamin deficiency E56.9 Right hip pain M25.551 Allergies aspirin Allergy (Verified 10/15/19 15:09) Rash Penicillins Allergy (Verified 10/15/19 15:09) Rash tramadol Adverse Reaction (Severe, Verified 10/15/19 15:09) Palpitations ketorolac [From Toradol] Adverse Reaction (Verified 10/15/19 15:09) Other tachycardia PAPER TAPE Allergy (Uncoded 10/15/19 15:09) Other RED WELTS Home Medications: Ambulatory Orders Medication Instructions Recorded dulaglutide 1.5 mg/0.5 mL 1.5 mg SC QWEEK #2 ml 09/11/19 subcutaneous pen injector metformin 1,000 mg tablet 1,000 mg PO BID #60 tab 09/11/19 Ondansetron [Zofran Odt] 4 mg PO Q8H PRN PRN #10 tab 10/12/19 Famotidine [Pepcid] 40 mg PO DAILY PRN 10/15/19 Hydrocodone Bitart/Apap 5-325 1 - 2 tab PO Q4H PRN PRN 10/15/19 [[place] 5MG-325MG] Surgical History: Surgical History (Last Reviewed 10/20/19 @ 07:[address] 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 Denies: Abdominal Pain Genitourinary: Reports: Frequency, Urgency. Denies: Dysuria Gynecological: Denies: Vaginal discharge Musculoskeletal: Denies: Muscle pain Skin: Denies: Wounds Neurological: Denies: Difficulty swallowing VTE Information - Inpt Only VTE Present on Admission: Yes VTE Mechan Device Prophylaxis: SCD's VTE Pharm Prophylaxis ordered?: No Reason prophylaxis not ordered:: Treatment Not Indicated Patient Problems: Active and Suspected Problems (Last Reviewed 09/14/19 @ 08:[address] Chris Chow MD) Back pain (Acute) - Physical Exam Vitals/I&O's: Body Mass Index (BMI) 44.9 Finger Stick Blood Glucose 122 General: Alert, Oriented x3, Cooperative, No apparent distress HEENT: Atraumatic, Normocephalic Oral: Moist Mucosa Neck: Supple, Trachea Midline Lungs: Clear to auscultation, Normal air movement Cardiovascular: Regular rate, Regular Rhythm Abdomen: Soft, Non Tender, Obese Extremities: No clubbing Skin: No rashes Musculoskeletal: No Muscle Wasting Neurological: Cranial nerves II-XII grossly intact, Neuro grossly intact Psych/Mental Status: Normal Affect, Alert and oriented to time, place, person, mood and affect Microbiology Past 72 Hours 10/19/19 09:10 Mucosa - Nasopharyngeal Coronavirus COVID-19 PCR - Final Laboratory Results 10/19/19 09:10: COVID-19 (SERGIO) Cancelled Current Medications Cefazolin Sodium 2 gm/ Sodium (Chloride) 110 mls @ 150 mls/hr IV PREOP ONE Stop: 10/20/19 08:13 Assessment/Plan All Active Problems (Last Reviewed 09/14/19 @ 08:[address] Chris Chwo MD) Back pain (Acute) Abdominal pain affecting (Resolved) Chest pain (Resolved) Left ureteral calculus (Resolved) Low lying placenta nos or without hemorrhage, second trimester (Resolved) Missed ab (Resolved) Partial placenta previa (Resolved) with nephrolithiasis (Resolved) Retained products of conception after miscarriage (Resolved) Threatened labor (Resolved) UTI in (Resolved) cystoscopy, left ureteroscopy with laser lithotripsy and left ureteral stent insertion Essential Procedure Criteria Procedure Essential: Yes Criteria Note: On 08/18/2019 the [place] Department of Health ([facility]) Public Order signed by [facility] Director Patricia Snell M.D., regarding the Management of Non-Essential Surgeries and Procedures for the purpose of preserving Personal Protective Equipment (PPE) and critical hospital capacity and resources within [place] went into effect as of 08/19/2019 at 5:00PM. According to the [facility] Public Order: This action will remain in full force and effect until the State of Emergency declared by the Governor no longer exists or the Director of the [facility] rescinds or modifies this Order.. This [facility] order stated all non-essential or elective surgeries and procedures that utilize PPE should be delayed unless there is undue risk to the current or future health of a patient. After reviewing the aforementioned [facility] Public Order and the patients clinical case, I have determined that the scheduled procedure meets the criteria to go forward. Risk to Patient if Procedure Delayed: Presence of severe symptoms causing an inability to perform ADL's - pain has been debilitating and is increasing
--- NOTE | 2019-10-20 07:31 | PCM.OPRPT ---
Problem List (1) Back pain Status: Acute (2) Kidney stone Status: Chronic Report of Operation Date of Procedure: 10/20/19 Pre-Operative Diagnosis: left renal stones Post-Operative Diagnosis: same Surgery/Procedure Performed:: cystoscopy, left ureteroscopy, left ureteral stent insertion Type of Anesthesia:: General Description of Procedure: Patient is a 29-year-old female who has had issues with left-sided renal stones and continuing pain. We discussed risks benefits and alternatives and she desired to proceed with surgical intervention. Patient was taken to the operating room and placed on the operating room table. Anesthesia monitored the head, neck, airway, IV access and vital signs throughout the case. Once anesthesia was appropriately administered the patient was placed into dorsal lithotomy position was prepped and draped in usual sterile fashion. A cystourethroscopy was performed through the urethra under direct visualization. The bladder mucosa in its entirety was visualized. There were no masses, lesions, foreign bodies or other abnormalities identified. The left ureteral orifice was located in the correct anatomic position the area of the trigone. It was intubated with a 0.035 Glidewire without difficulty and was visually this was visualized curled in the renal pelvis under fluoroscopy. A second Glidewire was then passed 0.035 in size. At this time under fluoroscopic visualization, a ureteral reaccessed sheath was inserted over the Glidewire. One Glidewire remained as a safety wire. At this time the flexible ureteroscope was inserted through the reaccessed sheath and entry into the renal pelvis was obtained. In the lower pole the 2 renal calculi were identified. The positioning of the stones within the calyx made accessing them for laser lithotripsy and basket extraction and possible. After several attempts, the tissue began to become edematous and the decision was made to place a ureteral stent. The ureteral reaccessed sheath was removed under direct visualization with the ureteroscope and was visualized under fluoroscopy as well. There were no injuries to the ureteral mucosa. At this time the cystoscope was used to place a 6 [place] 24 cm double-J stent over the safety wire with good curling position in the renal pelvis as well as the urinary bladder. The patient's bladder was emptied and the case was terminated. The patient tolerated the procedure well was taken recovery room in good condition. Grafts/Implants Used: 6x24 JJ stent - Complications none - Admit VTE Documentation VTE Present on Admission: Yes VTE Mechan Device Prophylaxis: SCD's VTE Pharm Prophylaxis ordered?: No Reason prophylaxis not ordered:: Treatment Not Indicated
--- NOTE | 2019-10-20 07:32 | DCINST_ITS ---
Discharge Diet: Carb Control Diet Discharge Activity: Return to Normal Activity, May not drive while taking narcotic pain medications. May resume sexual activity in: 1 week Call your doctor if you observe: Fever of 101 or Higher, Inability to urinate, Inability to have a bowel movement Allergies/Adverse Reactions: Allergies aspirin Allergy (Verified 10/15/19 15:09) Rash Penicillins Allergy (Verified 10/15/19 15:09) Rash tramadol Adverse Reaction (Severe, Verified 10/15/19 15:09) Palpitations ketorolac [From Toradol] Adverse Reaction (Verified 10/15/19 15:09) Other tachycardia PAPER TAPE Allergy (Uncoded 10/15/19 15:09) Other RED WELTS Medications to take at Discharge dulaglutide 1.5 mg/0.5 mL subcutaneous pen injector 1.5 mg SC QWEEK #2 ml 09/11/19 metformin 1,000 mg tablet 1,000 mg PO BID #60 tab 09/11/19 Ondansetron [Zofran Odt] 4 mg PO Q8H PRN PRN #10 tab 10/12/19 Famotidine [Pepcid] 40 mg PO DAILY PRN 10/15/19 Hydrocodone Bitart/Apap 5-325 [[place] 5MG-325MG] 1 - 2 tab PO Q4H PRN PRN 10/15/19 Primary Care Physician: Care Physician,No Primary [Primary Care Provider] - Test Results: Test results from this visit will be discussed in further detail at your follow- up appointment, if applicable. Please Follow Up With: Elizabeth Montoya MD When: call office for appt Proposed Discharge Date: 10/20/19
[2019-10-20 07:51] LABS: Bedside Glucose 125 mg/dL (70-110)
[2019-10-20] MEDS: Lactated Ringers 1,000 ML 100 ML IV (08:29)
[2019-10-20] MEDS: HYDROcodone Bitartrate/Apap 5/325 Tablet PO (12:04)
== END 2019-10-20 12:20 | disposition home or self-care (01) ==
LOC: SDC 06:48 → AC 06:49
PROVIDERS: Referring Provider Urology; Visit Provider Urology
PROC: 0TJ98ZZ Inspection of Ureter, Via Natural or Artificial Opening Endoscopic (ICD-10-PCS; CPT 52352; principal; 2019-10-20 08:40)
DX: N20.0 Calculus of kidney (principal); Z11.59 Encounter for screening for other viral diseases; E11.9 Type 2 diabetes mellitus without complications; J45.909 Unspecified asthma, uncomplicated; K21.9 Gastro-esophageal reflux disease without esophagitis; Z86.2 Personal history of diseases of the blood and blood-forming organs and certain disorders involving the immune mechanism; Z87.19 Personal history of other diseases of the digestive system; Z87.442 Personal history of urinary calculi; Z79.84 Long term (current) use of oral hypoglycemic drugs; Z79.899 Other long term (current) drug therapy
CPT/HCPCS: 52332; 76000; 82962; 87635; G2023; J7120; C2617; J2405; U0002

== ENCOUNTER 2019-10-23 05:33 | Day surgery (SDC) | payer MEDICAID, SELFPAY ==
[2019-10-20 07:23] VITALS: BMI 44.3
[2019-10-23] VITALS (7 sets, daily range): BP systolic 108–124; BP diastolic 63–83; PULSE 78–98; RESP 16–18; TEMP 36.5–36.9; O2SAT 92–99; BMI 43.7
[2019-10-23 06:01] LABS: Bedside Glucose 131 mg/dL (70-110)
[2019-10-23] MEDS: Lactated Ringers 1,000 ML 100 ML IV (06:17)
[2019-10-23] MEDS: Ciprofloxacin 400 MG/200 ML BAG 200 MG IV (06:18)
--- NOTE | 2019-10-23 07:46 | PCM.OPRPT ---
Problem List (1) Kidney stone Status: Chronic (2) Back pain Status: Acute Report of Operation Date of Procedure: 10/23/19 Pre-Operative Diagnosis: left renal stones Post-Operative Diagnosis: same Surgery/Procedure Performed:: left renal extracorporeal shockwave lithotripsy Type of Anesthesia:: General Specimen's removed: none Description of Procedure: Patient is a 29 yo female with left renal stones. She had ureteroscopy and the stones were unable to be removed. She now presents for left renal extracorporeal shockwave lithotripsy. She understands the risks of anesthesia, bleeding, infection, injury and COVID-19. The patient was taken to the operating room and placed on the lithotripsy table. Anesthesia monitored the head, neck, airway, IV access and vital signs throughout the case. Once anesthesia was appropriately administered the patient was aligned with the lithotripter and the stones were easily visible. They were shocked with 3000 shocks. The patient tolerated the procedure well. She was awakened and taken to the recovery room in good condition. There were no complications during the procedure. Grafts/Implants Used: none - Complications none - Admit VTE Documentation VTE Present on Admission: Yes VTE Mechan Device Prophylaxis: SCD's VTE Pharm Prophylaxis ordered?: No Reason prophylaxis not ordered:: Treatment Not Indicated
--- NOTE | 2019-10-23 07:51 | DCINST_ITS ---
Discharge Diet: No Restrictions Discharge Activity: May not drive while taking narcotic pain medications. May resume sexual activity in: No Restrictions Call your doctor if you observe: Fever of 101 or Higher, Inability to urinate, Inability to have a bowel movement Allergies/Adverse Reactions: Allergies aspirin Allergy (Verified 10/23/19 06:03) Rash Penicillins Allergy (Verified 10/23/19 06:03) Rash tramadol Adverse Reaction (Severe, Verified 10/23/19 06:03) Palpitations ketorolac [From Toradol] Adverse Reaction (Verified 10/23/19 06:03) Other tachycardia PAPER TAPE Allergy (Uncoded 10/23/19 06:03) Other RED WELTS Medications to take at Discharge dulaglutide 1.5 mg/0.5 mL subcutaneous pen injector 1.5 mg SC QWEEK #2 ml 09/11/19 metformin 1,000 mg tablet 1,000 mg PO BID #60 tab 09/11/19 Ondansetron [Zofran Odt] 4 mg PO Q8H PRN PRN #10 tab 10/12/19 Famotidine [Pepcid] 40 mg PO DAILY PRN 10/15/19 Hydrocodone Bitart/Apap 5-325 [[place] 5/325] 2 tab PO Q8H PRN PRN 5 Days tab 10/20/19 Oxycodone HCl/Acetaminophen [Percocet 5/325] 2 tab PO Q8H PRN PRN 7 Days #20 tab 10/20/19 Phenazopyridine HCl [Pyridium] 200 mg PO TID PRN PRN 7 Days #30 tab 10/20/19 Primary Care Physician: Care Physician,No Primary [Primary Care Provider] - Test Results: Test results from this visit will be discussed in further detail at your follow- up appointment, if applicable. Please Follow Up With: Elizabeth Montoya MD When: as scheduled on Saturday Proposed Discharge Date: 10/23/19
--- NOTE | 2019-10-23 07:53 | PCM.HP.STD ---
Problem List (1) Kidney stone Status: Chronic (2) Back pain Status: Acute History of Present Illness Date of Admission: 10/23/19 Chief Complaint: left flank pain The patient is a 29 year old F with left renal stones. Ureteroscopy was unsuccessful in removing them. She presents for extracorporeal shockwave lithotripsy for treatment. Risks, benefits and alternatives were discussed including risks of anesthesia, bleeding, infection, pain, unsuccessful treatment, and COVID-19. She understands and desires to proceed. Past Medical History Past Medical History (Chronic Problems): Chronic Problems (Last Reviewed 10/20/19 @ 07:[address] Elizabeth Montoya MD) Kidney stone (Chronic) Diabetes mellitus (Chronic) Medical History: Medical History (Last Reviewed 10/23/19 @ 07:[address] Elizabeth Montoya MD) Diabetes mellitus (Chronic) E11.9 Frequent headaches R51 History of kidney stones Z87.442 Seasonal allergies J30.2 Vision problems H54.7 Vitamin D deficiency E55.9 Vitamin deficiency E56.9 Right hip pain M25.551 Allergies aspirin Allergy (Verified 10/23/19 06:03) Rash Penicillins Allergy (Verified 10/23/19 06:03) Rash tramadol Adverse Reaction (Severe, Verified 10/23/19 06:03) Palpitations ketorolac [From Toradol] Adverse Reaction (Verified 10/23/19 06:03) Other tachycardia PAPER TAPE Allergy (Uncoded 10/23/19 06:03) Other RED WELTS Home Medications: Ambulatory Orders Medication Instructions Recorded dulaglutide 1.5 mg/0.5 mL 1.5 mg SC QWEEK #2 ml 09/11/19 subcutaneous pen injector metformin 1,000 mg tablet 1,000 mg PO BID #60 tab 09/11/19 RX: Ondansetron [Zofran Odt] 4 mg PO Q8H PRN PRN #10 tab 10/12/19 RX: Famotidine [Pepcid] 40 mg PO DAILY PRN 10/15/19 Oxycodone HCl/Acetaminophen 2 tab PO Q8H PRN PRN 7 Days #20 tab 10/20/19 [Percocet 5/325] Phenazopyridine HCl [Pyridium] 200 mg PO TID PRN PRN 7 Days #30 10/20/19 tab RX: Hydrocodone Bitart/Apap 5-325 2 tab PO Q8H PRN PRN 5 Days tab 10/20/19 [[place] 5/325] Surgical History: Surgical History (Last Reviewed 10/23/19 @ 07:[address] 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 Denies: Constipation Genitourinary: Reports: Urgency - due to stent. Denies: Dysuria Gynecological: Denies: Breast symptoms Musculoskeletal: Denies: Muscle pain Skin: Denies: Wounds Neurological: Denies: Balance problems Endocrine: Denies: Change in Body Habitus VTE Information - Inpt Only VTE Present on Admission: Yes VTE Mechan Device Prophylaxis: SCD's VTE Pharm Prophylaxis ordered?: No Reason prophylaxis not ordered:: Treatment Not Indicated - Physical Exam Vitals/I&O's: Vital Signs Temp Pulse Resp BP Pulse Ox 98.4 F 94 16 112/83 H 98 10/23/19 06:04 10/23/19 06:04 10/23/19 06:04 10/23/19 06:04 10/23/19 06:04 Oxygen Delivery Method Room Air Weight: 126.8 kg Body Mass Index (BMI) 43.7 Finger Stick Blood Glucose 122 Intake and Output for Last 24 Hours 10/21/19 10/22/19 10/23/19 23:59 23:59 23:59 Intake Total 200 / 200 Balance 200 / 200 General: Alert, Oriented x3, Cooperative, No apparent distress HEENT: Atraumatic, Normocephalic Oral: Moist Mucosa Neck: Supple, Trachea Midline Lungs: Clear to auscultation, Normal air movement Cardiovascular: Regular rate Abdomen: Soft Extremities: No clubbing Skin: No rashes Musculoskeletal: No Muscle Wasting Neurological: Cranial nerves II-XII grossly intact, Neuro grossly intact Psych/Mental Status: Alert and oriented to time, place, person, mood and affect Laboratory Results 10/23/19 05:57: POC Glucose 131 H Current Medications Ciprofloxacin (Cipro) 400 mg in 200 mls @ 200 mls/hr IV PREOP ONE Stop: 10/23/19 07:59 Last Infusion: 10/23/19 07:46 Dose: Infused Documented by: Lactated Ringer's () 1,000 mls @ 100 mls/hr IV .Q10H MICHAEL Last Admin: 10/23/19 06:17 Dose: 100 mls/hr Documented by: Assessment/Plan All Active Problems (Last Reviewed 10/20/19 @ 07:[address] Elizabeth Montoya MD) Back pain (Acute) Abdominal pain affecting (Resolved) Chest pain (Resolved) Left ureteral calculus (Resolved) Low lying placenta nos or without hemorrhage, second trimester (Resolved) Missed ab (Resolved) Partial placenta previa (Resolved) with nephrolithiasis (Resolved) Retained products of conception after miscarriage (Resolved) Threatened labor (Resolved) UTI in (Resolved) extracorporeal shockwave lithotripsy stent out in the office next week
[2019-10-23 09:16] LABS: Bedside Glucose 109 mg/dL (70-110)
[2019-10-23] MEDS: HYDROcodone Bitartrate/Apap 5/325 Tablet PO (09:48)
== END 2019-10-23 10:39 | disposition home or self-care (01) ==
LOC: SDC 05:34 → AC 05:34
PROVIDERS: Referring Provider Urology; Visit Provider Urology
PROC: (CPT 50590; principal; 2019-10-23 07:20)
DX: N20.0 Calculus of kidney (principal); E11.9 Type 2 diabetes mellitus without complications; K21.9 Gastro-esophageal reflux disease without esophagitis; J45.909 Unspecified asthma, uncomplicated; Z86.2 Personal history of diseases of the blood and blood-forming organs and certain disorders involving the immune mechanism; Z87.19 Personal history of other diseases of the digestive system; Z87.442 Personal history of urinary calculi; Z87.440 Personal history of urinary (tract) infections; Z79.84 Long term (current) use of oral hypoglycemic drugs; Z79.899 Other long term (current) drug therapy
CPT/HCPCS: 50590; 82962; J7120; J0744; J2405

== ENCOUNTER → 2019-10-28 16:19 | Outpatient (CLI) | payer MEDICAID, SELFPAY ==
[2019-10-23 06:04] VITALS: BMI 43.7
--- NOTE | 2019-10-28 16:21 | RAD_ITS ---
STUDY: X-RAY - ABDOMEN/PELVIS REASON FOR EXAM: Female, 29 years old. Kidney stone TECHNIQUE: Two AP supine views of the abdomen and pelvis. COMPARISON: September 30, 2019 FINDINGS: Normal visualized lung bases. There is an unremarkable bowel gas pattern. There is no demonstrated free abdominal air. There are surgical clips within the right upper quadrant consistent with prior cholecystectomy. There is a left ureteral stent in place. The calcifications visualized within the left kidney on the prior examination are no longer apparent. Bowel gas obscures anatomic detail of the kidneys bilaterally. There is a stable-appearing phleboliths within the pelvis left of midline. There is a right hip arthroplasty that is grossly anatomic in alignment. RAD/Abdomen Single View IMPRESSION: No renal calculi identified. Electronically Signed: Lalitha Hale MD at 16:37 EDT Tel , Service support ,
== END ==
PROVIDERS: Referring Provider Urology; Visit Provider Urology
DX: N20.0 Calculus of kidney (principal)
CPT/HCPCS: 74018

== ENCOUNTER 2019-11-01 09:44 | Emergency (ER) | payer MEDICAID, SELFPAY ==
[2019-10-23 06:04] VITALS: BMI 43.7
[2019-11-01 09:44] VITALS: BP 140/90; PULSE 85; RESP 16; TEMP 36.3; O2SAT 97; BMI 46.5
--- NOTE | 2019-11-01 09:58 | RAD_ITS ---
STUDY: X-RAY - ABDOMEN/PELVIS REASON FOR EXAM: Female, 29 years old. HISTORY LEFT SIDE KIDNEY STONES AND RECENT STENT REMOVAL, PAIN TECHNIQUE: Two AP supine views of the abdomen and pelvis. COMPARISON: October 28, 2019 FINDINGS: Normal visualized lung bases. There is an unremarkable bowel gas pattern. There is no demonstrated free abdominal air. Previously noted stent has been discontinued. There is a stable phlebolith in the left pelvis. There is right hip replacement. RAD/Abdomen Single View IMPRESSION: Stent removal. No stones seen. No dilated loops of bowel. Electronically Signed: Kip Felipe MD at 12:31 EDT , Service support ,
[2019-11-01] MEDS: 0.9% Normal Saline 1,000 ML 1000 ML IV (10:09)
[2019-11-01] MEDS: Ketorolac 30 MG/ML Syringe IV (10:09)
[2019-11-01] MEDS: Ondansetron 4 MG/2 ML Vial IV (10:10)
[2019-11-01 10:18] LABS: Absolute Lymphocyte Count 2.63 X10^3/uL (0.83-4.51); Absolute Neutrophil Count 4.3 X10^3/uL (2.0-7.7); Basophil# 0.05 X10^3/uL; Basophil% 0.6 % (0-1); Eosinophil# 0.15 X10^3/uL; Eosinophils% 1.9 % (0-5); Hematocrit 38.4 % (37-47); Hemoglobin 13.3 g/dL (12.0-15.0); Lymphocyte # 2.63 X10^3/ul (4.0); Lymphocyte % 34.1 % (19-41); Mean Corp Hgb Conc 34.6 g/dL (32-36); Mean Corpuscular Hgb 30.5 pg (27.0-32.0); Mean Corpuscular Volume 88.1 fL (81-99); Mean Platelet Vol. 8.7 fl (6.2-12.0); Monocyte# 0.53 X10^3/uL; Monocyte% 6.9 % (0-10); NRBC Flagged by Analyzer 0 % (0-5); Neutrophil # 4.29 X10^3/uL (2.7-7.7); Neutrophil % 55.7 % (47-70); Platelet Count 345 K/mm3 (150-450); RBC Distribution Width CV 13.4 % (11.6-14.6); RBC Distribution Width SD 43.1 fl (35.1-43.9); Red Blood Count 4.36 M/mm3 (4.2-5.4); White Blood Count 7.7 K/mm3 (4.4-11.0)
--- NOTE | 2019-11-01 10:27 | ED.VIS.GEN ---
History of Present Illness Informant: Patient Onset: Yesterday Context: Gradual Onset Timing: Continuous Quality: sharp Location: left flank Current Severity: Moderate Maximum Severity: Severe Worsened by: nothing Relieved by: nothing Associated Symptoms: Nausea and vomiting Narrative: 29-year-old female presents with left flank pain. Last week had a lithotripsy done and stent removed but is continued to have pain and nausea and vomiting. No fevers. No urinary symptoms. No back pain. No diarrhea. No chest pain or shortness of breath. She is not lightheaded or dizzy. She finished antibiotics couple of days ago. No difficulty urinating Prior similar symptoms: Yes Recent Illness/Hospitalization: Yes <Peter Johansen - Last Filed: 11/01/19 13:28> <Leander Garsia - Last Filed: 11/01/19 15:08> Chief Complaint: Flank Pain Past Medical History Prior records reviewed: Yes Past Medical History: - - T2DM Surgical History: cholecystectomy, - - , right hip replacement, D&C Lives: With Family Smoking Status: Never smoker Alcohol: None Drugs: None <Peter Johansen - Last Filed: 11/01/19 13:28> <Leander Garsia - Last Filed: 11/01/19 15:08> - Allergies and Home Meds Allergies/Adverse Reactions: Allergies aspirin Allergy (Verified 11/01/19 10:40) Rash Penicillins Allergy (Verified 11/01/19 10:40) Rash tramadol Adverse Reaction (Severe, Verified 11/01/19 10:40) Palpitations ketorolac [From Toradol] Adverse Reaction (Verified 11/01/19 10:40) Other tachycardia PAPER TAPE Allergy (Uncoded 11/01/19 10:40) Other RED WELTS Primary Care Physician: Elizabeth Montoya MD [STAFF PHYSICIAN] - 1 Day Care Physician,No Primary [Primary Care Provider] - Review of Systems General: Denies: Chills, Fever, Malaise, Subjective, Sweats, Weight loss, - Eyes: Denies: Visual changes - left, Visual changes - right, Visual changes - bilaterally, Blurred vision - left, Blurred vision - right, Blurred Vision - bilaterally, Diplopia, -, - ENT: Denies: Bilateral ear pain, Left ear pain, Right ear pain, Rhinorrhea, Sore throat, -, - Cardiovascular: Denies: Chest pain, Palpitations, Heart racing, -, - Respiratory: Denies: Dyspnea, Cough, Sputum, Dyspnea on exertion, Orthopnea, Paroxysmal nocturnal dyspnea, -, - Gastrointestinal: Reports: Abdominal pain, Nausea, Vomiting. Denies: Diarrhea Genitourinary: Denies: Dysuria, Hematuria, Frequency Musculoskeletal: Denies: Myalgias, Arthralgias, Neck pain, Back pain, Swelling, Extremity Pain, -, - Skin: Denies: Rash, Abscess, Abrasions, Wounds, -, - Neurological: Denies: Headache, Weakness, Parasthesia, Numbness, -, - <Peter Johansen - Last Filed: 11/01/19 13:28> Physical Exam Vital Signs/Narrative: Vital Signs Temp Pulse Resp BP Pulse Ox 11/01/19 09:44 97.4 F L 85 16 140/90 H 97 Inital Vital Signs reviewed: Yes General: Well nourished, Well developed, Obese, No Acute Distress Head: Normocephalic, Atraumatic Eyes: Perrl, EOMI ENT: Moist mucous membranes Neck: Supple, Nontender Cardiovascular: Regular rate, Regular rhythm, No murmurs Respiratory: No distress, CTA bilaterally, Chest nontender Abdomen: Soft, Nontender, Nondistended, Normal bowel sounds, No masses Back: Nontender, Normal Inspection Extremities: Nontender, No edema Skin: Normal color, No rash, No Trauma Neurological: Alert, Oriented x3 Psychological: Normal affect, Normal Mood <Peter Johansen - Last Filed: 11/01/19 13:28> Vital Signs/Narrative: Vital Signs Pulse Resp BP Pulse Ox 11/01/19 13:38 85 16 135/69 H 100 11/01/19 13:20 85 16 135/69 H 100 <Leander Garsia - Last Filed: 11/01/19 15:08> Diagnostic/Tx/Re-eval Impressions KUB X-Ray 11/01/19 09:58 IMPRESSION: Stent removal. No stones seen. No dilated loops of bowel. Electronically Signed: Kip Felipe MD at 12:31 EDT , Service support , 11/01/19 09:58 KUB [Abdomen Single View] [RAD] Stat Laboratory Results 11/01/19 11/01/19 11/01/19 10:10 10:10 10:43 WBC 7.7 RBC 4.36 Hgb 13.3 Hct 38.4 MCV 88.1 MCH 30.5 MCHC 34.6 RDW Std Deviation 43.1 RDW Coeff of Paty 13.4 Plt Count 345 MPV 8.7 Immature Gran % (Auto) 0.800 Neut % (Auto) 55.7 Lymph % (Auto) 34.1 [place] % (Auto) 6.9 Eos % (Auto) 1.9 Baso % (Auto) 0.6 Absolute Neuts (auto) 4.3 Absolute Lymphs (auto) 2.63 Nucleated RBC % 0 Sodium 140 Potassium 3.8 Chloride 106 Carbon Dioxide 26.0 Anion Gap 8 BUN 13 Creatinine 0.66 Estim Creat Clear Calc 124.51 Est GFR (MDRD) Af Amer 137 Est GFR (MDRD) Non-Af 113 BUN/Creatinine Ratio 19.6 Glucose 141 H Calcium 8.9 Urine Color Urine Clarity Urine pH Ur Specific [place] Urine Protein Urine Glucose (UA) Urine Ketones Urine Occult Blood Urine Nitrite Urine Bilirubin Urine Urobilinogen Ur Leukocyte Esterase Urine RBC Urine WBC Ur Squamous Epith Cells Urine Bacteria Urine Mucus Urine Test Negative 11/01/19 10:43 WBC RBC Hgb Hct MCV MCH MCHC RDW Std Deviation RDW Coeff of Paty Plt Count MPV Immature Gran % (Auto) Neut % (Auto) Lymph % (Auto) [place] % (Auto) Eos % (Auto) Baso % (Auto) Absolute Neuts (auto) Absolute Lymphs (auto) Nucleated RBC % Sodium Potassium Chloride Carbon Dioxide Anion Gap BUN Creatinine Estim Creat Clear Calc Est GFR (MDRD) Af Amer Est GFR (MDRD) Non-Af BUN/Creatinine Ratio Glucose Calcium Urine Color Yellow Urine Clarity Clear Urine pH 5.0 Ur Specific [place] 1.025 Urine Protein 30 H Urine Glucose (UA) Normal Urine Ketones Negative Urine Occult Blood 150 H Urine Nitrite Negative Urine Bilirubin Negative Urine Urobilinogen Normal Ur Leukocyte Esterase Negative Urine RBC 0-5 SEEN Urine WBC 0-5 SEEN Ur Squamous Epith Cells 0-5 SEEN Urine Bacteria 1+ Urine Mucus 0 SEEN Urine Test - Medical Decision Making Initially patient treated with a liter fluids, Toradol and Zofran. CBC BMP are both unremarkable. Urinalysis shows no signs of infection and is unremarkable. KUB shows no acute findings Repeat exam patient continues to have some pain. She was given morphine and Phenergan. Next exam she feels well her abdomen is soft and nontender she is tolerating by mouth at this time we feel she is safe for discharge we will prescribe Percocet and have her follow-up with urologist tomorrow return for worsening symptoms <Peter Johansen - Last Filed: 11/01/19 13:28> - Medical Decision Making Attending Note: I evaluated this patient with the midlevel provider. I performed my own face to face evaluation and agree with the above noted history and physical. I agree with the plan of care and the disposition. Patient presented secondary to flank pain in the setting of recent stone, lithotripsy, and ureteral stent placement and removal. Patient pain was controlled with morphine and Phenergan. Laboratory work-up and radiology shows no signs of infection, acute kidney injury. Patient had improvement. Patient will follow-up with urology. <Leander Garsia - Last Filed: 11/01/19 15:08> ED Disposition <Peter Johansen - Last Filed: 11/01/19 13:28> <Leander Garsia - Last Filed: 11/01/19 15:08> - Plan for ED Patient: Disposition: Home or Assisted Living Diagnosis: Left flank pain, Diabetes mellitus, History of ureter stent Instructions: ED Flank Pain Uncertain Cause Prescriptions: Oxycodone HCl/Acetaminophen [Percocet 5/325] 1 tab PO Q6H PRN PRN 3 Days #12 tab PRN Reason: Pain Prescription Printed Referrals: Care Physician,No Primary [Primary Care Provider] - Elizabeth Montoya MD [STAFF PHYSICIAN] - 1 Day
[2019-11-01 10:30] LABS: Anion Gap 8 (5-15); BUN 13 mg/dL (7-18); BUN/Creat Ratio 19.6 RATIO (10-20); Calcium,Total 8.9 mg/dL (8.5-10.1); Chloride 106 mmol/L (98-107); Creatinine, Serum 0.66 mg/dL (0.55-1.02); EST Glomerular Filtration Rate 113 mL/min (>60); Est Glom Filt Rate - Afr Amer 137 mL/min (>60); Estimated Creatinine Clearance 124.51 ml/min; Glucose 141 mg/dL (74-106); Potassium 3.8 mmol/L (3.5-5.1); Sodium Level 140 mmol/L (136-145)
[2019-11-01 10:50] LABS: Mucous, Urine 0 SEEN /hpf (<or=2+)
[2019-11-01 10:55] LABS: Color, Urine Yellow (Yellow); Glucose, Dipstick Normal (Normal); Ketone-Dipstick Negative (Negative); Leukocyte Esterase-Dipstick Negative /ul (Negative); Nitrite-Dipstick Negative (Negative); Occult Blood-Urine 150 /ul (Negative); Protein-Dipstick 30 mg/dl (Negative); Specific Gravity, Urine 1.025 (1.002-1.030); Urine Bilirubin Dipstick Negative (Negative); Urine Clarity Clear (Clear); Urine Urobilinogen Normal (Normal)
[2019-11-01 10:57] LABS: Internal QC Validated? YES +Cl - CLEAR BKGD
[2019-11-01 10:59] LABS: Pregnancy, Urine Negative Negative
[2019-11-01 11:02] LABS: Bacteria 1+ /hpf (None Seen); Red Blood Cells-Urine 0-5 SEEN /hpf (0-5); Squamous Epithelial Cells - UA 0-5 SEEN /hpf (5-10); White Blood Cells 0-5 SEEN /hpf (0-5)
[2019-11-01] MEDS: Morphine 4 MG/ML Syringe IV (13:00)
[2019-11-01] MEDS: proMETHazine 25 MG/ML Syringe 12.5 MG IV (13:00)
[2019-11-01 13:20] VITALS: BP 135/69; PULSE 85; RESP 16; O2SAT 100
[2019-11-01 13:38] VITALS: BP 135/69; PULSE 85; RESP 16; O2SAT 100
== END 2019-11-01 13:39 | disposition home or self-care (01) ==
PROVIDERS: Emergency Provider Physician Assistant Medical
DX: R10.9 Unspecified abdominal pain (principal); R11.2 Nausea with vomiting, unspecified; E66.9 Obesity, unspecified; E11.9 Type 2 diabetes mellitus without complications; Z87.442 Personal history of urinary calculi; Z79.84 Long term (current) use of oral hypoglycemic drugs
CPT/HCPCS: 74018; 80048; 81001; 81025; 85025; 96361; 96374; 96375; 99284; J7030; A4216; J2405

== ENCOUNTER 2019-12-14 17:09 | Emergency (ER) | payer MEDICAID, SELFPAY ==
[2019-12-11 10:19] VITALS: BMI 46.5
[2019-12-14 17:10] VITALS: BP 154/95; PULSE 102; RESP 17; O2SAT 96
[2019-12-14 17:11] VITALS: BP 154/95; PULSE 105; RESP 18; TEMP 36.4; O2SAT 97; BMI 43.7
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
[2019-12-14] MEDS: Ondansetron 4 MG/2 ML Vial IV (18:31)
[2019-12-14] MEDS: 0.9% Normal Saline 1,000 ML 1000 ML IV (18:32)
[2019-12-14] MEDS: Acetaminophen 500 MG Tablet 1000 MG PO (18:32)
[2019-12-14 18:40] LABS: Bacteria 0 SEEN /hpf (None Seen); Mucous, Urine 0 SEEN /hpf (<or=2+); Red Blood Cells-Urine 0 SEEN /hpf (0-5)
[2019-12-14 18:44] LABS: Absolute Lymphocyte Count 3.04 X10^3/uL (0.83-4.51); Absolute Neutrophil Count 6.4 X10^3/uL (2.0-7.7); Basophil# 0.03 X10^3/uL; Basophil% 0.3 % (0-1); Eosinophil# 0.17 X10^3/uL; Eosinophils% 1.6 % (0-5); Hematocrit 37.6 % (37-47); Hemoglobin 13.1 g/dL (12.0-15.0); Lymphocyte # 3.04 X10^3/ul (4.0); Lymphocyte % 29.1 % (19-41); Mean Corp Hgb Conc 34.8 g/dL (32-36); Mean Corpuscular Hgb 30.5 pg (27.0-32.0); Mean Corpuscular Volume 87.6 fL (81-99); Mean Platelet Vol. 9.2 fl (6.2-12.0); Monocyte# 0.76 X10^3/uL; Monocyte% 7.3 % (0-10); NRBC Flagged by Analyzer 0 % (0-5); Neutrophil # 6.36 X10^3/uL (2.7-7.7); Neutrophil % 60.9 % (47-70); Platelet Count 319 K/mm3 (150-450); RBC Distribution Width CV 13.5 % (11.6-14.6); RBC Distribution Width SD 42.7 fl (35.1-43.9); Red Blood Count 4.29 M/mm3 (4.2-5.4); White Blood Count 10.4 K/mm3 (4.4-11.0)
[2019-12-14 18:47] LABS: Color, Urine Yellow (Yellow); Glucose, Dipstick 250 mg/dl (Normal); Ketone-Dipstick 5 mg/dl (Negative); Leukocyte Esterase-Dipstick Negative /ul (Negative); Nitrite-Dipstick Negative (Negative); Occult Blood-Urine Negative /ul (Negative); Protein-Dipstick 30 mg/dl (Negative); Specific Gravity, Urine 1.015 (1.002-1.030); Urine Bilirubin Dipstick Negative (Negative); Urine Clarity Sl. Cloudy (Clear); Urine Urobilinogen Normal (Normal)
[2019-12-14 18:58] LABS: Internal QC Validated? YES +Cl - CLEAR BKGD; Pregnancy, Urine Negative Negative
[2019-12-14 18:59] LABS: Squamous Epithelial Cells - UA 0-5 SEEN /hpf (5-10); White Blood Cells 0-5 SEEN /hpf (0-5)
[2019-12-14 19:02] LABS: AST(SGOT) 11 U/L (15-37); Alanine Aminotransfer ALT/SGPT 24 U/L (13-56); Albumin, Serum 3.7 g/dL (3.2-5.0); Alkaline Phosphatase 107 U/L (45-117); Anion Gap 8 (5-15); BUN 9 mg/dL (7-18); BUN/Creat Ratio 11.9 RATIO (10-20); Bilirubin, Direct 0.22 mg/dL (0.00-0.30); Calcium,Total 8.6 mg/dL (8.5-10.1); Chloride 105 mmol/L (98-107); Creatinine, Serum 0.76 mg/dL (0.55-1.02); EST Glomerular Filtration Rate 97 mL/min (>60); Est Glom Filt Rate - Afr Amer 117 mL/min (>60); Estimated Creatinine Clearance 108.13 ml/min; Globulin 3.7 g/dL (2.2-4.2); Glucose 212 mg/dL (74-106); Potassium 3.5 mmol/L (3.5-5.1); Protein, Total 7.4 g/dL (6.4-8.2); Sodium Level 136 mmol/L (136-145)
[2019-12-14 19:13] VITALS: RESP 16
[2019-12-14] MEDS: 0.9% Normal Saline 1,000 ML 150 ML IV (19:14)
[2019-12-14 19:24] LABS: Hemoglobin A1c 6.6 % (3.8-5.6)
[2019-12-14 19:48] VITALS: PULSE 93; RESP 16; O2SAT 99
== END 2019-12-14 19:50 | disposition home or self-care (01) ==
PROVIDERS: Emergency Provider Emergency Medicine; PCP Internal Medicine
DX: E11.65 Type 2 diabetes mellitus with hyperglycemia (principal); Z87.442 Personal history of urinary calculi; Z79.84 Long term (current) use of oral hypoglycemic drugs
CPT/HCPCS: 80048; 80076; 81001; 81025; 82009; 83036; 85025; 96361; 96374; 99284; J7030; A4216; J2405

== ENCOUNTER 2020-05-13 20:31 | Emergency (ER) | payer MEDICAID, SELFPAY ==
[2020-04-14 11:32] VITALS: BMI 43.0
[2020-05-13 20:31] VITALS: BP 158/79; PULSE 98; RESP 18; TEMP 35.8; O2SAT 99; BMI 42.3
--- NOTE | 2020-05-13 20:45 | EKG12_ITS ---
Test Reason : SOB Blood Pressure : / mmHG Vent. Rate : 089 BPM Atrial Rate : 089 BPM P-R Int : 146 ms QRS Dur : 082 ms QT Int : 352 ms P-R-T Axes : 052 005 028 degrees QTc Int : 428 ms Normal sinus rhythm Low voltage QRS Borderline ECG Confirmed by MORGAN WEISS, DARI ([id number]), editor continuity and script STEVE SANTO ([id number]) on 05/18/2020 9:23:21 AM Referred By: MARY Confirmed By:DARI MORA MD
--- NOTE | 2020-05-13 20:46 | ED.DCSUM_ITS ---
History of Present Illness Chief Complaint: Shortness of Breath Informant: Patient Onset: Today Current Severity: Moderate Maximum Severity: Moderate Narrative: Patient presents with pleuritic chest pain and shortness of breath. Patient had gastric bypass surgery at [facility] in [place] on the eighth. She was discharged home from the hospital yesterday. Patient states when she woke this morning around 7 AM she felt short of breath. This progressed throughout the day. She reports sharp pain in the lower sternal region as well as in the left posterior lower ribs. She denies fever or chills. She states she was tested for Covid just before her surgery and it was negative. She is currently on a liquid diet and was able to keep fluids down today. - Past Medical History (1) Diabetes mellitus Status: Chronic (2) Kidney stone Status: Resolved Past Medical History - Allergies and Home Meds Allergies/Adverse Reactions: Allergies aspirin Allergy (Verified 04/14/20 11:32) Rash Penicillins Allergy (Verified 04/14/20 11:32) Rash tramadol Adverse Reaction (Severe, Verified 04/14/20 11:32) Palpitations ketorolac [From Toradol] Adverse Reaction (Verified 04/14/20 11:32) Other tachycardia PAPER TAPE Allergy (Uncoded 04/14/20 11:32) Other FRANTZ RUCKER Primary Care Physician: Kellie Dorantes MD [Primary Care Provider] - Prior records reviewed: Yes Surgical History: cholecystectomy, - - , right hip replacement, D&C Lives: With Family Smoking Status: Current every day smoker Review of Systems General: Denies: Chills, Fever Eyes: Denies: Visual changes - bilaterally ENT: Denies: Bilateral ear pain Cardiovascular: Reports: Chest pain Respiratory: Reports: Dyspnea. Denies: Cough Gastrointestinal: Reports: Abdominal pain. Denies: Vomiting, Diarrhea Musculoskeletal: Denies: Swelling, Extremity Pain Skin: Denies: Rash Hematologic: Denies: Easy bruising, Easy bleeding Allergy: Denies: Uticaria Physical Exam Vital Signs/Narrative: Vital Signs Temp Pulse Resp BP Pulse Ox 05/13/20 20:31 96.5 F L 98 18 158/79 H 99 Inital Vital Signs reviewed: Yes General: Well nourished, Well developed Head: Normocephalic ENT: Moist mucous membranes Neck: Supple Cardiovascular: Regular rate, Regular rhythm Respiratory: No distress, CTA bilaterally Abdomen: Soft, Tender - Postop tenderness around her surgical sites. Sites are clean with no sign of infection.. Negative for: Rebound tenderness Extremities: Nontender Neurological: Alert, Oriented x3 Psychological: Normal affect Diagnostic/Tx/Re-eval Impressions Chest CTA 05/13/20 20:46 IMPRESSION: No aneurysm, dissection, or pulmonary embolism No evidence of right heart strain Small left pleural effusion with bibasilar atelectasis greater on the left Gastric bypass Individualized dose optimization techniques were used for this CT. at 2221 Reported and signed by: Stormy Barfield DO Electronically Signed: Stormy Barfield DO at 22:20 EST Tel , Service support , 05/13/20 20:46 CTA Chest W/WO Contrast [CT] Stat Laboratory Results 05/13/20 05/13/20 21:00 21:00 WBC 8.6 RBC 3.85 L Hgb 12.0 Hct 35.0 L MCV 90.9 MCH 31.2 MCHC 34.3 RDW Std Deviation 44.4 H RDW Coeff of Paty 13.4 Plt Count 306 MPV 8.8 Immature Gran % (Auto) 0.400 Neut % (Auto) 63.2 Lymph % (Auto) 26.4 [place] % (Auto) 7.0 Eos % (Auto) 2.8 Baso % (Auto) 0.2 Absolute Neuts (auto) 5.4 Absolute Lymphs (auto) 2.26 Nucleated RBC % 0 Sodium 139 Potassium 3.2 L Chloride 104 Carbon Dioxide 28.0 Anion Gap 7 BUN 5 L Creatinine 0.55 Estim Creat Clear Calc 148.09 Est GFR (MDRD) Af Amer 168 Est GFR (MDRD) Non-Af 139 BUN/Creatinine Ratio 9.0 L Glucose 114 H Calcium 8.4 L Total Bilirubin 1.60 H Direct Bilirubin 0.30 AST 12 L ALT 39 Alkaline Phosphatase 85 Troponin I < 0.015 Total Protein 7.2 Albumin 3.3 Globulin 3.9 Lipase 138 - EKG Initial EKG Interpretation: Sinus Rhythm - Sinus 89. No acute ST change. - Medical Decision Making Patient was given a small dose of Dilaudid along with Zofran. Blood work is unremarkable. CTA of the chest reveals no PE. The patient does have a small left pleural effusion and atelectasis at the left base. We discussed the importance of deep breathing and she has been using her incentive spirometer at home. She will continue this. ED Disposition - Plan for ED Patient: Disposition: Home or Assisted Living Diagnosis: Pleuritic chest pain, Small pleural effusion Instructions: ED Pleural Effusion, ED Chest Pain, Noncardiac Referrals: Kellie Dorantes MD [Primary Care Provider] - 1 Week if not improving
--- NOTE | 2020-05-13 20:46 | CT_ITS ---
History: SOB/PLEURITIC CP/GASTRIC BYPASS 05/10/20 TECHNIQUE:CTA Chest WO/W Contrast Injection A CT of the chest was performed following the administration of ml 100mL Isovue-370 Thin axial reconstructed images were performed through the pulmonary vasculature as per the routine pulmonary embolus protocol.MIP and mutiplanar reconstructions A dose optimization technique was used during the scan # of images including paperwork:126 Comparison: none FINDINGS: No aneurysm or dissection. Pulmary arteries: No evidence of pulmonary emboli The heart is not enlarged. No evidence of right heart strain. No pericardial effusion. Small left pleural effusion. No mediastinal hilar or axillary adenopathy. The thyroid gland is unremarkable. The lungs dependent atelectasis in the lung bases left greater than right. Calcified granuloma left lower lobe Pneumpothorax: none The trachea and central airways appear patent . Limited views of the upper abdomen the spleen is enlarged at 13.3 cm transverse diameter Gastric bypass No acute osseous abnormality. CT/CTA Chest W/WO Contrast IMPRESSION: No aneurysm, dissection, or pulmonary embolism No evidence of right heart strain Small left pleural effusion with bibasilar atelectasis greater on the left Gastric bypass Individualized dose optimization techniques were used for this CT. at 2221 Reported and signed by: Stormy Barfield DO Electronically Signed: Stormy Barfield DO at 22:20 EST Tel , Service support ,
[2020-05-13 21:15] LABS: Absolute Lymphocyte Count 2.26 X10^3/uL (0.83-4.51); Absolute Neutrophil Count 5.4 X10^3/uL (2.0-7.7); Basophil# 0.02 X10^3/uL; Basophil% 0.2 % (0-1); Eosinophil# 0.24 X10^3/uL; Eosinophils% 2.8 % (0-5); Lymphocyte # 2.26 X10^3/ul (4.0); Lymphocyte % 26.4 % (19-41); Mean Corp Hgb Conc 34.3 g/dL (32-36); Mean Corpuscular Hgb 31.2 pg (27.0-32.0); Mean Corpuscular Volume 90.9 fL (81-99); Mean Platelet Vol. 8.8 fl (6.2-12.0); NRBC Flagged by Analyzer 0 % (0-5); Neutrophil # 5.42 X10^3/uL (2.7-7.7); Neutrophil % 63.2 % (47-70); Platelet Count 306 K/mm3 (150-450); RBC Distribution Width CV 13.4 % (11.6-14.6); RBC Distribution Width SD 44.4 fl (35.1-43.9); Red Blood Count 3.85 M/mm3 (4.2-5.4); White Blood Count 8.6 K/mm3 (4.4-11.0)
[2020-05-13] MEDS: Ondansetron 4 MG/2 ML Vial IV (21:26)
[2020-05-13] MEDS: HYDROmorphone 1 MG/ML Syringe 0.5 MG IV (21:26)
[2020-05-13 21:32] LABS: AST(SGOT) 12 U/L (15-37); Alanine Aminotransfer ALT/SGPT 39 U/L (13-56); Albumin, Serum 3.3 g/dL (3.2-5.0); Alkaline Phosphatase 85 U/L (45-117); Anion Gap 7 (5-15); BUN 5 mg/dL (7-18); Calcium,Total 8.4 mg/dL (8.5-10.1); Chloride 104 mmol/L (98-107); Creatinine, Serum 0.55 mg/dL (0.55-1.02); EST Glomerular Filtration Rate 139 mL/min (>60); Est Glom Filt Rate - Afr Amer 168 mL/min (>60); Estimated Creatinine Clearance 148.09 ml/min; Globulin 3.9 g/dL (2.2-4.2); Glucose 114 mg/dL (74-106); Lipase 138 U/L (73-393); Potassium 3.2 mmol/L (3.5-5.1); Protein, Total 7.2 g/dL (6.4-8.2); Sodium Level 139 mmol/L (136-145)
[2020-05-13 22:31] VITALS: BP 125/68; PULSE 88; RESP 20; O2SAT 97
[2020-05-13 23:34] VITALS: BP 123/72; PULSE 92; RESP 17; O2SAT 95
== END 2020-05-13 23:36 | disposition home or self-care (01) ==
PROVIDERS: Emergency Provider Emergency Medicine; PCP Internal Medicine
DX: J90 Pleural effusion, not elsewhere classified (principal); Z98.84 Bariatric surgery status; E11.9 Type 2 diabetes mellitus without complications; Z87.442 Personal history of urinary calculi; Z79.4 Long term (current) use of insulin; Z79.899 Other long term (current) drug therapy; F17.200 Nicotine dependence, unspecified, uncomplicated
CPT/HCPCS: 71275; 80048; 80076; 83690; 84484; 85025; 93005; 96374; 96375; 99283; Q9967; A4216; J2405

== ENCOUNTER 2020-05-17 17:44 | Emergency (ER) | payer MEDICAID, SELFPAY ==
[2020-05-17 17:45] VITALS: BP 142/84; PULSE 102; RESP 20; TEMP 36.6; O2SAT 100; BMI 43.5
--- NOTE | 2020-05-17 17:58 | CT_ITS ---
STUDY: CT ABDOMEN AND PELVIS WITH CONTRAST REASON FOR EXAM: Female, 30 years old. ABD PAIN/GASTRIC BYPASS ON 05/10/20 RADIATION DOSAGE (If Supplied By Facility): CTDIvol = ( 26.72 ) mGy, DLP = ( 1884.24 ) mGycm TECHNIQUE: Transaxial images were obtained from the dome of the diaphragm to the symphysis pubis without oral contrast. Oral and amp; IV Gastrografin and amp; 100mL Isovue-300 was administered. Sagittal and coronal images were reconstructed. Individualized dose optimization techniques were used for this CT. COMPARISON: 10/12/2019 FINDINGS: The visualized lung bases are unremarkable. The visualized portions of the heart are within normal limits. Normal liver. Gallbladder has been removed surgically.. Borderline splenomegaly Normal pancreas. Normal bilateral adrenal glands. Normal right kidney. Normal left kidney. Postop change status post gastric bypass. Normal small intestine. Normal colon. The appendix is visualized and appears normal. Normal abdominal aorta. Normal inferior vena cava. Normal retroperitoneum. Incompletely distended thick-walled bladder likely of no significance. Small left ovarian cyst is noted. Normal abdominal wall. Right hip prosthesis is noted. Previously noted left renal calculi are not visualized at this time presumably status post passage of the stones however clinical correlation is recommended CT/Abdomen/Pelvis WITH Contrast IMPRESSION: No acute abnormality status post gastric bypass and cholecystectomy Other findings as above Electronically Signed: Duane Leyva MD at 20:24 EST , Service support ,
[2020-05-17] MEDS: Ondansetron 4 MG/2 ML Vial IV (18:16)
[2020-05-17] MEDS: Morphine 4 MG/ML Syringe IV (18:16)
[2020-05-17 18:22] LABS: Absolute Lymphocyte Count 2.27 X10^3/uL (0.83-4.51); Absolute Neutrophil Count 5.9 X10^3/uL (2.0-7.7); Basophil# 0.03 X10^3/uL; Basophil% 0.3 % (0-1); Eosinophil# 0.24 X10^3/uL; Eosinophils% 2.7 % (0-5); Hematocrit 36.6 % (37-47); Hemoglobin 12.5 g/dL (12.0-15.0); Lymphocyte # 2.27 X10^3/ul (4.0); Lymphocyte % 25.1 % (19-41); Mean Corp Hgb Conc 34.2 g/dL (32-36); Mean Corpuscular Hgb 30.8 pg (27.0-32.0); Mean Corpuscular Volume 90.1 fL (81-99); Mean Platelet Vol. 8.9 fl (6.2-12.0); Monocyte# 0.62 X10^3/uL; Monocyte% 6.9 % (0-10); NRBC Flagged by Analyzer 0 % (0-5); Neutrophil # 5.85 X10^3/uL (2.7-7.7); Neutrophil % 64.7 % (47-70); Platelet Count 395 K/mm3 (150-450); RBC Distribution Width CV 13.2 % (11.6-14.6); RBC Distribution Width SD 43.6 fl (35.1-43.9); Red Blood Count 4.06 M/mm3 (4.2-5.4)
[2020-05-17 18:38] LABS: AST(SGOT) 10 U/L (15-37); Alanine Aminotransfer ALT/SGPT 26 U/L (13-56); Albumin, Serum 3.5 g/dL (3.2-5.0); Alkaline Phosphatase 97 U/L (45-117); Anion Gap 9 (5-15); BUN 10 mg/dL (7-18); BUN/Creat Ratio 16.9 RATIO (10-20); Bilirubin, Direct 0.35 mg/dL (0.00-0.30); Chloride 106 mmol/L (98-107); Creatinine, Serum 0.59 mg/dL (0.55-1.02); EST Glomerular Filtration Rate 128 mL/min (>60); Est Glom Filt Rate - Afr Amer 155 mL/min (>60); Estimated Creatinine Clearance 138.05 ml/min; Globulin 4.1 g/dL (2.2-4.2); Glucose 132 mg/dL (74-106); Lipase 234 U/L (73-393); Potassium 3.5 mmol/L (3.5-5.1); Protein, Total 7.6 g/dL (6.4-8.2); Sodium Level 141 mmol/L (136-145)
--- NOTE | 2020-05-17 19:55 | ED.DCSUM_ITS ---
- ER Visit Summary Date of Service: 05/17/20 Chief Complaint: Abdominal pain History of Present Illness: The patient is a 30 F who presents with abdominal pain. She has had this pain for 4 days. 1 week ago she had gastric bypass surgery at [facility] in [place]. She developed this sharp epi gastric pain about 4 days ago. Nothing makes it better or worse. She does have nausea or vomiting. She denies fevers, diarrhea or constipation. No urinary symptoms. She states that she does have nausea medicines but she is currently out of pain medications. She was seen here 4 days ago when her symptoms started and was complaining of shortness of breath at that time. She had a negative work-up including laboratory studies and a CT of the chest. Physical Examination: Vital signs reviewed. HEENT exam unremarkable. Heart is regular rate and rhythm without murmurs. Lungs are clear to auscultation. Abdomen is soft with epigastric tenderness to palpation. There is no guarding or rebound tenderness. Her incisions are clean dry and intact throughout her abdomen as this was a laparoscopic procedure. Extremities reveal no edema. Skin exam normal. Neurologic exam normal. Test Results: CBC normal. Glucose 132. 12 bilirubin is 1.8. AST of 10. CAT scan abdomen pelvis with p.o. and IV contrast reveals nothing acute. There are postoperative changes. Emergency Department Course and Treatment: The patient was given morphine and Zofran. She continued to have pain after the CAT scan so I gave her Dilaudid. I discussed with her surgeon at [facility], Dr. Senior. I informed her of the results and she states that she will follow up with the patient tomorrow in her office. She would like the patient to have a couple of doses of [place] for pain at home. I reviewed her OARRS report. She did receive 60 mL of liquid oxycodone 5 days ago. I will give her 4 pills of [place] for home. Her surgeon also requested a Covid test. I will send this out and the results will come back at a later date. Treatment Plan: [] Disposition: Discharge Impression: Postoperative abdominal pain This note was generated with [employer] dictation software. It may contain incorrect words, spelling, and punctuation that were not noted in review of the chart prior to signing ED Disposition - Plan for ED Patient: Disposition: Home or Assisted Living Instructions: ED Abdominal Pain Unkn Cause Fem Prescriptions: Hydrocodone Bitart/Apap 5-325 [[place] 5MG-325MG] 1 tablet PO Q6H PRN PRN 2 Days #4 tablet PRN Reason: Pain Transmission Status: [id number] Referrals: Kellie Dorantes MD [Primary Care Provider] -
[2020-05-17 20:19] VITALS: BP 119/64; PULSE 74; RESP 16; TEMP 36.4; O2SAT 99
[2020-05-17] MEDS: HYDROmorphone 0.5 MG/0.5 ML SYRINGE IV (21:22)
--- NOTE | 2020-05-17 21:27 | ED.RN ---
PT INSTRUCTED ON HOW SHE WILL RECEIVE COVID RESULTS (VIA TEXT). PT DID NOT TOLERATE COLLECTION WELL. ENCOURAGED PT TO USE [facility] FOR TRANSPORTATION. SHE STATED THAT THEY WON'T LET ME TAKE MY KIDS. ENCOURAGED PT TO CALL OFFICE IN AM AND TRY TO GET VIRTUAL APPOINTMENT.
== END 2020-05-17 21:29 | disposition home or self-care (01) ==
PROVIDERS: Emergency Provider Emergency Medicine; PCP Internal Medicine
DX: R10.13 Epigastric pain (principal); R11.2 Nausea with vomiting, unspecified; Z98.84 Bariatric surgery status; E11.9 Type 2 diabetes mellitus without complications; Z79.4 Long term (current) use of insulin
CPT/HCPCS: 74177; 80048; 80076; 83690; 85025; 87635; 96374; 96375; 99282; Q9967; A4216; J2405; U0003

== ENCOUNTER 2020-08-07 11:20 | Emergency (ER) | payer MEDICAID, SELFPAY ==
[2020-08-07 11:21] VITALS: BP 106/76; PULSE 69; RESP 16; TEMP 36.7; O2SAT 98; BMI 37.0
--- NOTE | 2020-08-07 11:34 | CT_ITS ---
STUDY: CT ABDOMEN AND PELVIS WITH CONTRAST REASON FOR EXAM: Female, 30 years old. abd pain -- IV PO Contrast RADIATION DOSAGE (If Supplied By Facility): CTDIvol = ( 18.45 ) mGy, DLP = ( 1321.64 ) mGycm TECHNIQUE: Transaxial images were obtained from the dome of the diaphragm to the symphysis pubis with oral contrast. Oral and amp;amp; IV Gastrografin and amp;amp; 100mL Isovue-300 was administered. Sagittal and coronal images were reconstructed. Individualized dose optimization techniques were used for this CT. COMPARISON: 09/21/2019. FINDINGS: The visualized lung bases are unremarkable. There is decreased attenuation of the liver consistent with steatosis. There are surgical clips in the gallbladder fossa consistent with a prior cholecystectomy. Normal spleen. Pancreas unchanged. 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 Normal bilateral adrenal glands. Unremarkable right kidney. Unremarkable left kidney. There are surgical sutures at the stomach. Normal small intestine. Normal colon. The appendix is visualized and appears normal. Normal abdominal aorta. Normal urinary bladder. Normal abdominal wall. There are diffuse degenerative changes of the visualized lumbar spine. CT/Abdomen/Pelvis WITH Contrast IMPRESSION: No bowel obstruction, colitis or diverticulitis. Gastric bypass. Electronically Signed: Lula Borja MD at 14:01 EST Tel , Service support ,
--- NOTE | 2020-08-07 11:35 | ED.VIS.GEN ---
History of Present Illness Chief Complaint: Abd Pain Informant: Patient Onset: Days Context: Gradual Onset Timing: Waxes and wanes Current Severity: Moderate Maximum Severity: Moderate Narrative: Patient presents with epigastric and right lower quadrant abdominal pain. She is had nausea and vomiting. She has felt warm and had chills but not measured a fever at home. Past history significant for gastric bypass surgery in May. - Past Medical History (1) Type 2 diabetes mellitus Status: Chronic Past Medical History - Allergies and Home Meds Allergies/Adverse Reactions: Allergies aspirin Allergy (Verified 08/07/20 11:21) Rash Penicillins Allergy (Verified 08/07/20 11:21) Rash tramadol Adverse Reaction (Severe, Verified 08/07/20 11:21) Palpitations PAPER TAPE Allergy (Uncoded 08/07/20 11:21) Other FRANTZ LARATS Primary Care Physician: Kellie Dorantes MD [Primary Care Provider] - Surgical History: cholecystectomy, - - , right hip replacement, D&C, gastric bypass Lives: With Family Smoking Status: Never smoker Review of Systems General: Reports: Chills. Denies: Fever Eyes: Denies: Visual changes - bilaterally ENT: Denies: Bilateral ear pain Cardiovascular: Denies: Chest pain Respiratory: Denies: Dyspnea, Cough Gastrointestinal: Reports: Abdominal pain, Nausea, Vomiting. Denies: Diarrhea Genitourinary: Denies: Dysuria Musculoskeletal: Denies: Swelling, Extremity Pain Skin: Denies: Rash Neurological: Denies: Headache Hematologic: Denies: Easy bruising, Easy bleeding Allergy: Denies: Uticaria Physical Exam Vital Signs/Narrative: Vital Signs Temp Pulse Resp BP Pulse Ox 08/07/20 11:21 98.1 F 69 16 106/76 98 Inital Vital Signs reviewed: Yes General: Well nourished, Well developed Head: Normocephalic ENT: Moist mucous membranes Neck: Supple Cardiovascular: Regular rate, Regular rhythm Respiratory: No distress, CTA bilaterally Abdomen: Soft, Tender - Moderate tenderness right lower quadrant. Mild tenderness epigastrium., Hypoactive bowel sounds. Negative for: Guarding, Rebound tenderness Skin: Normal color Neurological: Alert, Oriented x3 Psychological: Normal affect Diagnostic/Tx/Re-eval Impressions Abdomen/Pelvis CT 08/07/20 11:34 IMPRESSION: No bowel obstruction, colitis or diverticulitis. Gastric bypass. Electronically Signed: Lula Borja MD at 14:01 EST Tel , Service support , 08/07/20 11:34 Abdomen/Pelvis WITH Contrast [CT] Stat Laboratory Results 08/07/20 08/07/20 08/07/20 11:37 11:37 11:37 WBC 7.1 RBC 4.38 Hgb 13.7 Hct 39.3 MCV 89.7 MCH 31.3 MCHC 34.9 RDW Std Deviation 42.0 RDW Coeff of Paty 12.8 Plt Count 319 MPV 9.3 Immature Gran % (Auto) 1.600 H Neut % (Auto) 57.2 Lymph % (Auto) 31.5 [place] % (Auto) 7.5 Eos % (Auto) 1.6 Baso % (Auto) 0.6 Absolute Neuts (auto) 4.1 Absolute Lymphs (auto) 2.23 Nucleated RBC % 0 Sodium 140 Potassium 3.7 Chloride 103 Carbon Dioxide 27.0 Anion Gap 10 BUN 9 Creatinine 0.59 Estim Creat Clear Calc 138.05 Est GFR (MDRD) Af Amer 155 Est GFR (MDRD) Non-Af 128 BUN/Creatinine Ratio 15.2 Glucose 176 H Calcium 8.9 Serum , Qual NEGATIVE Urine Color Urine Clarity Urine pH Ur Specific [place] Urine Protein Urine Glucose (UA) Urine Ketones Urine Occult Blood Urine Nitrite Urine Bilirubin Urine Urobilinogen Ur Leukocyte Esterase Urine RBC Urine WBC Ur Squamous Epith Cells Urine Bacteria Urine Mucus 08/07/20 12:39 WBC RBC Hgb Hct MCV MCH MCHC RDW Std Deviation RDW Coeff of Paty Plt Count MPV Immature Gran % (Auto) Neut % (Auto) Lymph % (Auto) [place] % (Auto) Eos % (Auto) Baso % (Auto) Absolute Neuts (auto) Absolute Lymphs (auto) Nucleated RBC % Sodium Potassium Chloride Carbon Dioxide Anion Gap BUN Creatinine Estim Creat Clear Calc Est GFR (MDRD) Af Amer Est GFR (MDRD) Non-Af BUN/Creatinine Ratio Glucose Calcium Serum , Qual Urine Color Yellow Urine Clarity Clear Urine pH 7.0 Ur Specific [place] 1.015 Urine Protein Negative Urine Glucose (UA) Normal Urine Ketones Negative Urine Occult Blood Negative Urine Nitrite Negative Urine Bilirubin Negative Urine Urobilinogen 4 H Ur Leukocyte Esterase Negative Urine RBC 0-5 SEEN Urine WBC 0 SEEN Ur Squamous Epith Cells 0-5 SEEN Urine Bacteria 0 SEEN Urine Mucus 0 SEEN - Medical Decision Making Patient was given a dose of Dilaudid and Zofran on arrival for pain. She was given IV fluids. Blood work is largely unremarkable. CT scan reveals no acute findings. On repeat evaluation patient states she still has some pain but it is improved. Patient be given a short course of [place] and Zofran for home. Advised to follow-up with her PCP or surgeon for continued ongoing symptoms. ED Disposition - Plan for ED Patient: Disposition: Home or Assisted Living Diagnosis: Abdominal pain Instructions: ED Abdominal Pain Unkn Cause Fem Prescriptions: Hydrocodone Bitart/Apap 5-325 [[place] 5MG-325MG] 1 tablet PO Q6H PRN PRN 3 Days #10 tablet PRN Reason: Pain Transmission Status: Sent to [facility] Ondansetron [Zofran Odt] 4 mg PO Q8H PRN PRN #10 tab PRN Reason: Nausea Transmission Status: Pending to [facility] Referrals: Kellie Dorantes MD [Primary Care Provider] - 1 Week if not improving
[2020-08-07 11:43] LABS: Absolute Lymphocyte Count 2.23 X10^3/uL (0.83-4.51); Absolute Neutrophil Count 4.1 X10^3/uL (2.0-7.7); Basophil# 0.04 X10^3/uL; Basophil% 0.6 % (0-1); Eosinophil# 0.11 X10^3/uL; Eosinophils% 1.6 % (0-5); Hematocrit 39.3 % (37-47); Hemoglobin 13.7 g/dL (12.0-15.0); Lymphocyte # 2.23 X10^3/ul (4.0); Lymphocyte % 31.5 % (19-41); Mean Corp Hgb Conc 34.9 g/dL (32-36); Mean Corpuscular Hgb 31.3 pg (27.0-32.0); Mean Corpuscular Volume 89.7 fL (81-99); Mean Platelet Vol. 9.3 fl (6.2-12.0); Monocyte# 0.53 X10^3/uL; Monocyte% 7.5 % (0-10); NRBC Flagged by Analyzer 0 % (0-5); Neutrophil # 4.07 X10^3/uL (2.7-7.7); Neutrophil % 57.2 % (47-70); Platelet Count 319 K/mm3 (150-450); RBC Distribution Width CV 12.8 % (11.6-14.6); Red Blood Count 4.38 M/mm3 (4.2-5.4); White Blood Count 7.1 K/mm3 (4.4-11.0)
[2020-08-07] MEDS: 0.9% Normal Saline 1,000 ML 150 ML IV (11:47)
[2020-08-07] MEDS: HYDROmorphone 1 MG/ML Syringe 0.5 MG IV (11:47)
[2020-08-07] MEDS: Ondansetron 4 MG/2 ML Vial IV (11:47)
[2020-08-07 11:55] LABS: Anion Gap 10 (5-15); BUN 9 mg/dL (7-18); BUN/Creat Ratio 15.2 RATIO (10-20); Calcium,Total 8.9 mg/dL (8.5-10.1); Chloride 103 mmol/L (98-107); Creatinine, Serum 0.59 mg/dL (0.55-1.02); EST Glomerular Filtration Rate 128 mL/min (>60); Est Glom Filt Rate - Afr Amer 155 mL/min (>60); Estimated Creatinine Clearance 138.05 ml/min; Glucose 176 mg/dL (74-106); Potassium 3.7 mmol/L (3.5-5.1); Sodium Level 140 mmol/L (136-145)
[2020-08-07 12:10] LABS: Internal QC Validated? YES +Cl - CLEAR BKGD; Pregnancy, Serum, hCG Quali. NEGATIVE Negative
[2020-08-07 12:47] LABS: Bacteria 0 SEEN /hpf (None Seen); Mucous, Urine 0 SEEN /hpf (<or=2+); White Blood Cells 0 SEEN /hpf (0-5)
[2020-08-07 12:50] LABS: Color, Urine Yellow (Yellow); Glucose, Dipstick Normal (Normal); Ketone-Dipstick Negative (Negative); Leukocyte Esterase-Dipstick Negative /ul (Negative); Nitrite-Dipstick Negative (Negative); Occult Blood-Urine Negative /ul (Negative); Protein-Dipstick Negative (Negative); Specific Gravity, Urine 1.015 (1.002-1.030); Urine Bilirubin Dipstick Negative (Negative); Urine Clarity Clear (Clear); Urine Urobilinogen 4 mg/dl (Normal)
[2020-08-07 12:56] LABS: Red Blood Cells-Urine 0-5 SEEN /hpf (0-5); Squamous Epithelial Cells - UA 0-5 SEEN /hpf (5-10)
[2020-08-07 14:30] VITALS: BP 102/78; PULSE 70; RESP 16; O2SAT 98
== END 2020-08-07 14:30 | disposition home or self-care (01) ==
PROVIDERS: Emergency Provider Emergency Medicine; PCP Internal Medicine
DX: R10.13 Epigastric pain (principal); R10.31 Right lower quadrant pain; R11.2 Nausea with vomiting, unspecified; R68.83 Chills (without fever); E11.9 Type 2 diabetes mellitus without complications; Z98.84 Bariatric surgery status; Z90.49 Acquired absence of other specified parts of digestive tract; Z79.84 Long term (current) use of oral hypoglycemic drugs
CPT/HCPCS: 74177; 80048; 81001; 84703; 85025; 96361; 96374; 96375; 99283; J7030; Q9967; A4216; J2405

== ENCOUNTER 2020-09-07 18:21 | Emergency (ER) | payer MEDICAID, SELFPAY ==
[2020-09-07 18:22] VITALS: BP 130/75; PULSE 104; RESP 18; TEMP 36.5; O2SAT 97; BMI 36.6
--- NOTE | 2020-09-07 18:35 | EKG12_ITS ---
Test Reason : GENERAL ILLNESS Blood Pressure : / mmHG Vent. Rate : 079 BPM Atrial Rate : 079 BPM P-R Int : 148 ms QRS Dur : 076 ms QT Int : 332 ms P-R-T Axes : 044 018 027 degrees QTc Int : 380 ms Sinus rhythm with marked sinus arrhythmia Low voltage QRS Borderline ECG Confirmed by BOGDAN WEISS, DOUG ([id number]), assistant film editor EVONNE JOHNSON ([id number]) on 09/09/2020 2:40:34 PM Referred By: BETSY Confirmed By:SHIRLEY MCFADDEN MD
--- NOTE | 2020-09-07 19:09 | ED.VIS.GEN ---
History of Present Illness Chief Complaint: General Illness Informant: Patient Narrative: Patient is a 30-year-old female with a past medical history of diabetes who presents to the emergency department for multiple complaints. She has a headache, cough, body aches, chills and nausea/vomiting. She has chest wall pain whenever she coughs, takes a deep breath. This does radiate around the lateral sides. She has been taking rubl-vez-[id number] pain medication for this which has not been giving her significant relief. She denies any fevers. 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 She did get her first Covid vaccine on August 29. She has been vomiting every time she tries to drink water. She denies any diarrhea associate with this. No abdominal pain. She denies any change in bowel movements. No urinary symptoms. She denies any neck stiffness or rashes. She denies any chance of being . Her cough has been nonproductive. No sore throat or earache. Past Medical History - Allergies and Home Meds Allergies/Adverse Reactions: Allergies aspirin Allergy (Verified 09/07/20 18:24) Rash Penicillins Allergy (Verified 09/07/20 18:24) Rash tramadol Adverse Reaction (Severe, Verified 09/07/20 18:24) Palpitations PAPER TAPE Allergy (Uncoded 08/07/20 11:21) Other [facility] Primary Care Physician: Kellie Dorantes MD [Primary Care Provider] - 3-5 Days if not improving Prior records reviewed: Yes Surgical History: cholecystectomy, - - , right hip replacement, D&C, gastric bypass Smoking Status: Former smoker Review of Systems All systems negative except as indicated General: Reports: Chills, Malaise. Denies: Fever, Sweats Eyes: Denies: Visual changes - bilaterally, Diplopia ENT: Denies: Rhinorrhea, Sore throat Cardiovascular: Reports: Chest pain - Chest wall. Denies: Palpitations Respiratory: Reports: Dyspnea, Cough. Denies: Sputum Gastrointestinal: Reports: Nausea, Vomiting. Denies: Abdominal pain, Diarrhea Genitourinary: Denies: Dysuria, Hematuria, Frequency Musculoskeletal: Denies: Back pain, Extremity Pain Skin: Denies: Rash, Wounds Neurological: Reports: Headache. Denies: Weakness, Numbness Physical Exam Vital Signs/Narrative: Vital Signs Temp Pulse Resp BP Pulse Ox 09/07/20 18:22 97.7 F L 104 H 18 130/75 H 97 Inital Vital Signs reviewed: Yes General: Well nourished, Well developed, No Acute Distress, - - Patient does appear ill but nontoxic. Head: Normocephalic, Atraumatic Eyes: Perrl, EOMI ENT: No rhinorrhea Neck: Supple, Nontender Cardiovascular: Regular rate, Regular rhythm, No murmurs Respiratory: No distress, CTA bilaterally, Chest tenderness Abdomen: Soft, Nontender, Nondistended Back: Nontender, Normal Inspection. Negative for: CVA tenderness, Spinal tenderness Extremities: Nontender, No edema Skin: Normal color, No rash Neurological: Alert, Normal Strength, Normal Sensation Psychological: Normal affect, Normal Mood Diagnostic/Tx/Re-eval Chest X-Ray - ED: - - Single view portable x-ray interpreted by myself. Clear lung muniz bilaterally. No pleural effusions. Normal cardiac silhouette. Normal mediastinum. Agree with radiologist interpretation. - Medical Decision Making Patient presents to the ED for infectious symptoms including chills, body aches cough and vomiting. Upon arrival to the emergency department she is borderline tachycardic but in no acute distress. She has a benign physical exam. Basic lab work obtained along with chest x-ray and coronavirus swab. She is treated symptomatically with a dose of Zofran and Toradol. Per her chest pain this is reproducible on physical exam. I believe that this more along the lines of costochondritis as opposed to PE, ACS but will check D-dimer and troponin level. Patient feeling much better after the Zofran. Her rapid antigen Covid test came back negative. Will send for PCR. No significant acute abnormality on blood counts or electrolytes. No evidence of pneumonia on chest x-ray. Will recommend symptomatic treatment in the meantime. We will write a prescription for Zofran. She is to isolate until PCR returns. Most likely she has a viral infection. Return precautions are reviewed with her including inability to keep down fluids, developing worsening shortness of breath. She understands and is agreeable this plan. She otherwise is to follow-up with her PCP. All questions answered. ED Disposition - Plan for ED Patient: Disposition: Home or Assisted Living Diagnosis: Cough, Nausea and vomiting Instructions: ED Viral Syndrome (Adult), ED Vomiting (Adult) Prescriptions: Ondansetron [Zofran Odt] 4 mg PO Q8H PRN PRN #10 tablet PRN Reason: Nausea Transmission Status: Received by [id number] Referrals: Kellie Dorantes MD [Primary Care Provider] - 3-5 Days if not improving
[2020-09-07] MEDS: 0.9% Normal Saline 1,000 ML 999 ML IV (19:32)
[2020-09-07] MEDS: Ondansetron 4 MG/2 ML Vial IV (19:34)
[2020-09-07] MEDS: Ketorolac 15 MG/ML Vial IV (19:35)
--- NOTE | 2020-09-07 19:40 | RAD_ITS ---
INDICATION: SOB, body aches EXAMINATION/TECHNIQUE: X-RAY - XR Chest 1 View COMPARISON: 08/01/2017. FINDINGS: The lungs are clear. The cardiomediastinal silhouette is unremarkable. No pleural effusion or pneumothorax. No acute osseous abnormalities. RAD/Chest 1 View (Portable) IMPRESSION: No acute radiographic abnormalities. Electronically Signed: Chiki Joel MD at 20:06 EDT Tel , Service support ,
[2020-09-07 19:55] LABS: Absolute Lymphocyte Count 3.53 X10^3/uL (0.83-4.51); Absolute Neutrophil Count 5.2 X10^3/uL (2.0-7.7); Basophil# 0.03 X10^3/uL; Basophil% 0.3 % (0-1); Eosinophil# 0.23 X10^3/uL; Eosinophils% 2.3 % (0-5); Hematocrit 37.9 % (37-47); Hemoglobin 13.1 g/dL (12.0-15.0); Lymphocyte # 3.53 X10^3/ul (4.0); Lymphocyte % 35.2 % (19-41); Mean Corp Hgb Conc 34.6 g/dL (32-36); Mean Corpuscular Hgb 31.3 pg (27.0-32.0); Mean Corpuscular Volume 90.7 fL (81-99); Mean Platelet Vol. 9.8 fl (6.2-12.0); Monocyte# 1.04 X10^3/uL; Monocyte% 10.4 % (0-10); NRBC Flagged by Analyzer 0 % (0-5); Neutrophil # 5.16 X10^3/uL (2.7-7.7); Neutrophil % 51.4 % (47-70); Platelet Count 358 K/mm3 (150-450); RBC Distribution Width CV 13.4 % (11.6-14.6); RBC Distribution Width SD 44.3 fl (35.1-43.9); Red Blood Count 4.18 M/mm3 (4.2-5.4)
[2020-09-07 20:07] LABS: Internal QC Validated? YES +Cl - CLEAR BKGD; Pregnancy, Serum, hCG Quali. NEGATIVE Negative
[2020-09-07 20:10] LABS: Anion Gap 4 (5-15); BUN 10 mg/dL (7-18); BUN/Creat Ratio 15.6 RATIO (10-20); Calcium,Total 9.1 mg/dL (8.5-10.1); Chloride 109 mmol/L (98-107); Creatinine, Serum 0.64 mg/dL (0.55-1.02); EST Glomerular Filtration Rate 117 mL/min (>60); Est Glom Filt Rate - Afr Amer 141 mL/min (>60); Estimated Creatinine Clearance 127.26 ml/min; Glucose 63 mg/dL (74-106); Potassium 3.5 mmol/L (3.5-5.1); Sodium Level 139 mmol/L (136-145)
--- NOTE | 2020-09-07 20:25 | ED.RN ---
answered pt's call light and she stated her iv was INFILTRATED, SLIGHT BUMP AT INSERTION SITE. PT STATED IT HURT HER, IV DCD.
[2020-09-07 20:38] LABS: D-Dimer Quantitative (DVT/PE) 0.29 FEU/ug/m (0.27-0.49)
[2020-09-07 21:05] VITALS: BP 128/63; PULSE 78; RESP 16; O2SAT 97
== END 2020-09-07 21:07 | disposition home or self-care (01) ==
PROVIDERS: Emergency Provider Emergency Medicine; PCP Internal Medicine
DX: R05 Cough (principal); R11.2 Nausea with vomiting, unspecified; R06.00 Dyspnea, unspecified; R51.9 Headache, unspecified; M79.10 Myalgia, unspecified site; R07.89 Other chest pain; E11.9 Type 2 diabetes mellitus without complications; Z79.4 Long term (current) use of insulin; Z79.899 Other long term (current) drug therapy; Z87.891 Personal history of nicotine dependence
CPT/HCPCS: 71045; 80048; 84484; 84703; 85025; 85379; 87426; 87635; 93005; 96361; 96374; 96375; 99285; J7030; A4216; J2405; U0002

== ENCOUNTER 2020-09-24 12:01 | Emergency (ER) | payer MEDICAID, SELFPAY ==
[2020-09-13 08:39] VITALS: BMI 35.9
[2020-09-24 12:02] VITALS: BP 122/71; PULSE 82; RESP 18; TEMP 36.4; O2SAT 99; BMI 35.4
[2020-09-24] MEDS: 0.9% Normal Saline 1,000 ML 1000 ML IV (12:30)
[2020-09-24] MEDS: Ondansetron 4 MG/2 ML Vial IV (12:31)
[2020-09-24] MEDS: Morphine 4 MG/ML Syringe IV (12:31)
[2020-09-24 12:38] LABS: Absolute Neutrophil Count 3.6 X10^3/uL (2.0-7.7); Basophil# 0.03 X10^3/uL; Basophil% 0.4 % (0-1); Eosinophil# 0.15 X10^3/uL; Eosinophils% 2.2 % (0-5); Hemoglobin 13.2 g/dL (12.0-15.0); Lymphocyte % 37.1 % (19-41); Mean Corp Hgb Conc 33.8 g/dL (32-36); Mean Corpuscular Hgb 30.8 pg (27.0-32.0); Mean Corpuscular Volume 90.9 fL (81-99); Monocyte# 0.46 X10^3/uL; Monocyte% 6.8 % (0-10); NRBC Flagged by Analyzer 0 % (0-5); Neutrophil # 3.59 X10^3/uL (2.7-7.7); Neutrophil % 53.4 % (47-70); Platelet Count 306 K/mm3 (150-450); RBC Distribution Width CV 13.2 % (11.6-14.6); RBC Distribution Width SD 43.6 fl (35.1-43.9); Red Blood Count 4.29 M/mm3 (4.2-5.4); White Blood Count 6.7 K/mm3 (4.4-11.0)
[2020-09-24 12:51] LABS: Internal QC Validated? YES +Cl - CLEAR BKGD; Pregnancy, Serum, hCG Quali. NEGATIVE Negative
[2020-09-24 12:52] LABS: ALB/GLOB Ratio 1.2 RATIO (0.9-2.4); AST(SGOT) 14 U/L (15-37); Alanine Aminotransfer ALT/SGPT 24 U/L (13-56); Albumin, Serum 4.1 g/dL (3.2-5.0); Alkaline Phosphatase 101 U/L (45-117); Anion Gap 3 (5-15); BUN 9 mg/dL (7-18); BUN/Creat Ratio 14.3 RATIO (10-20); Chloride 106 mmol/L (98-107); Creatinine, Serum 0.63 mg/dL (0.55-1.02); EST Glomerular Filtration Rate 119 mL/min (>60); Est Glom Filt Rate - Afr Amer 144 mL/min (>60); Estimated Creatinine Clearance 129.28 ml/min; Globulin 3.4 g/dL (2.2-4.2); Glucose 157 mg/dL (74-106); Potassium 3.6 mmol/L (3.5-5.1); Protein, Total 7.5 g/dL (6.4-8.2); Sodium Level 139 mmol/L (136-145)
[2020-09-24 14:02] VITALS: BP 98/55; PULSE 61; RESP 18; O2SAT 98
[2020-09-24 14:03] LABS: Color, Urine Yellow (Yellow); Glucose, Dipstick Normal (Normal); Ketone-Dipstick 5 mg/dl (Negative); Leukocyte Esterase-Dipstick 25 /ul (Negative); Mucous, Urine 0 SEEN /hpf (<or=2+); Nitrite-Dipstick Negative (Negative); Occult Blood-Urine 250 /ul (Negative); Protein-Dipstick 15 mg/dl (Negative); Specific Gravity, Urine 1.025 (1.002-1.030); Urine Bilirubin Dipstick Negative (Negative); Urine Clarity Sl. Cloudy (Clear); Urine Urobilinogen Normal (Normal)
[2020-09-24 14:15] LABS: Bacteria RARE /hpf (None Seen); Red Blood Cells-Urine 10-25 SEEN /hpf (0-5); Squamous Epithelial Cells - UA 0-5 SEEN /hpf (5-10); White Blood Cells 0-5 SEEN /hpf (0-5)
--- NOTE | 2020-09-24 14:31 | ED.VISSUMM ---
- ER Visit Summary Date of Service: 09/24/20 Chief Complaint: Left flank pain History of Present Illness: The patient is a 30 F who reports that she is sees a urologist named Dr. Kinsey. She has an appointment in 5 days. States that she had a CT of the flank 4 days ago when she had the onset of left flank pain. She states that she was discharged on hydrocodone and ran out yesterday. Patient reports she has a continuous sharp left flank pain that waxes and wanes. Is 10 of 10 at worst 9-10 currently. Is worsened by movement. Some relieved by heat. She reports has been nausea and vomited 6 times. No blood in her emesis. Reports her last problem was 4 days ago. Typically she goes every other day. Physical Examination: Vitals: Stable. Afebrile. General: Well-nourished and well-developed. Head: Normocephalic atraumatic. Neck: Supple, no lymphadenopathy. No JVD. Nontender. Cardiovascular: Regular rate and rhythm. No murmurs. Respiratory: No respiratory distress. Clear to auscultation bilaterally. Abdominal: Soft, nontender, nondistended, normal bowel sounds. No guarding, rebound, or peritoneal signs. Back: Mild left CVA tenderness. Extremities: Nontender, no edema. Skin: Normal color, no rash. Neurologic: Alert and oriented ?3. Cranial nerves II through XII are intact. Normal strength and sensation. Psych: Normal affect. Test Results: CBC is normal. Chem-7 shows a glucose 157. LFTs show total bili 1.4 and AST of 14. UA shows blood, 10-25 red blood cells, and rare bacteria. I did get the results of the CT that she had on September 19 which shows subtle punctate bilateral nephrolithiasis with medullary calcinosis. She had a 2 mm calcification in the bladder. No hydronephrosis. This was not repeated. Emergency Department Course and Treatment: The OARRS website is not functional. The patient was given morphine and Zofran IV. She is resting comfortably. Treatment Plan: Patient will be discharged prescription for 10 [place] and Zofran. Instructed follow-up with her urologist as previously scheduled. Return to the emergency department for any worsening symptoms. Disposition: To home in improved and stable condition. Impression: 1. Left flank pain. This note was generated with Dragon dictation software. It may contain incorrect words, spelling, and punctuation that were not noted in review of the chart prior to signing ED Disposition - Plan for ED Patient: Disposition: Home or Assisted Living Instructions: ED Flank Pain, Uncertain Cause Prescriptions: Hydrocodone Bitart/Apap 5-325 [[place] 5MG-325MG] 1 tablet PO Q4H PRN PRN 2 Days #10 tab PRN Reason: Pain Prescription Printed Ondansetron [Zofran Odt] 4 mg PO Q8H PRN PRN #10 tablet PRN Reason: Nausea Prescription Printed Additional Instructions: Follow-up with your urologist as previously scheduled.
[2020-09-24 14:42] VITALS: RESP 18
== END 2020-09-24 14:42 | disposition home or self-care (01) ==
LOC: ED 12:44
PROVIDERS: Emergency Provider Emergency Medicine; PCP Internal Medicine
DX: R10.9 Unspecified abdominal pain (principal); R11.2 Nausea with vomiting, unspecified; R68.83 Chills (without fever); K59.00 Constipation, unspecified; R30.0 Dysuria; M54.9 Dorsalgia, unspecified; E11.9 Type 2 diabetes mellitus without complications; Z98.84 Bariatric surgery status; Z90.49 Acquired absence of other specified parts of digestive tract; Z87.442 Personal history of urinary calculi; Z79.4 Long term (current) use of insulin; Z79.899 Other long term (current) drug therapy
CPT/HCPCS: 80053; 81001; 84703; 85025; 96361; 96374; 96375; 99283; J7030; J2405

== ENCOUNTER → 2020-11-11 11:10 | Outpatient (CLI) | payer MEDICAID, SELFPAY ==
[2020-11-11 10:56] VITALS: BMI 35.4
[2020-11-11 12:19] LABS: Absolute Lymphocyte Count 2.17 X10^3/uL (0.83-4.51); Absolute Neutrophil Count 5.3 X10^3/uL (2.0-7.7); Basophil# 0.04 X10^3/uL; Basophil% 0.5 % (0-1); Eosinophil# 0.11 X10^3/uL; Eosinophils% 1.3 % (0-5); Hematocrit 40.3 % (37-47); Hemoglobin 14.2 g/dL (12.0-15.0); Lymphocyte # 2.17 X10^3/ul (0.83-4.51); Lymphocyte % 26.1 % (19-41); Mean Corp Hgb Conc 35.2 g/dL (32-36); Mean Corpuscular Hgb 31.2 pg (27.0-32.0); Mean Corpuscular Volume 88.6 fL (81-99); Mean Platelet Vol. 9.7 fl (6.2-12.0); Monocyte# 0.68 X10^3/uL; Monocyte% 8.2 % (0-10); NRBC Flagged by Analyzer 0 % (0-5); Neutrophil # 5.31 X10^3/uL (2.7-7.7); Neutrophil % 63.7 % (47-70); Platelet Count 369 K/mm3 (150-450); RBC Distribution Width CV 12.9 % (11.6-14.6); RBC Distribution Width SD 41.8 fl (35.1-43.9); Red Blood Count 4.55 M/mm3 (4.2-5.4); White Blood Count 8.3 K/mm3 (4.4-11.0)
[2020-11-11 13:02] LABS: ALB/GLOB Ratio 1.1 RATIO (0.9-2.4); AST(SGOT) 19 U/L (15-37); Alanine Aminotransfer ALT/SGPT 27 U/L (13-56); Albumin, Serum 3.9 g/dL (3.2-5.0); Alkaline Phosphatase 130 U/L (45-117); Anion Gap 10 (5-15); BUN 9 mg/dL (7-18); BUN/Creat Ratio 15.3 RATIO (10-20); Chloride 107 mmol/L (98-107); Creatinine, Serum 0.59 mg/dL (0.55-1.02); EST Glomerular Filtration Rate 128 mL/min (>60); Est Glom Filt Rate - Afr Amer 155 mL/min (>60); Globulin 3.5 g/dL (2.2-4.2); Glucose 148 mg/dL (74-106); Potassium 3.7 mmol/L (3.5-5.1); Protein, Total 7.4 g/dL (6.4-8.2); Sodium Level 141 mmol/L (136-145)
== END ==
PROVIDERS: PCP Internal Medicine; Referring Provider Internal Medicine; Visit Provider Internal Medicine
DX: R23.8 Other skin changes (principal)
CPT/HCPCS: 36415; 80053; 85025

== ENCOUNTER → 2021-04-04 14:42 | Outpatient (CLI) | payer MEDICAID, SELFPAY ==
[2021-04-04 14:53] LABS: Bacteria 0 SEEN /hpf (None Seen); Mucous, Urine 0 SEEN /hpf (<or=2+); Red Blood Cells-Urine 0 SEEN /hpf (0-5); White Blood Cells 0 SEEN /hpf (0-5)
[2021-04-04 15:24] LABS: Color, Urine Yellow (Yellow); Glucose, Dipstick Normal (Normal); Ketone-Dipstick Negative (Negative); Leukocyte Esterase-Dipstick Negative /ul (Negative); Nitrite-Dipstick Negative (Negative); Occult Blood-Urine Negative /ul (Negative); Protein-Dipstick Negative (Negative); Specific Gravity, Urine 1.025 (1.002-1.030); Urine Bilirubin Dipstick Negative (Negative); Urine Clarity Clear (Clear); Urine Urobilinogen Normal (Normal)
[2021-04-04 15:41] LABS: Squamous Epithelial Cells - UA 0-5 SEEN /hpf (5-10)
[2021-04-04 15:45] LABS: Absolute Lymphocyte Count 2.92 X10^3/uL (0.83-4.51); Absolute Neutrophil Count 4.9 X10^3/uL (2.0-7.7); Basophil# 0.05 X10^3/uL; Basophil% 0.6 % (0-1); Eosinophil# 0.13 X10^3/uL; Eosinophils% 1.5 % (0-5); Hematocrit 39.2 % (37-47); Hemoglobin 13.6 g/dL (12.0-15.0); Lymphocyte # 2.92 X10^3/ul (0.83-4.51); Lymphocyte % 33.6 % (19-41); Mean Corp Hgb Conc 34.7 g/dL (32-36); Mean Corpuscular Volume 89.3 fL (81-99); Mean Platelet Vol. 9.3 fl (6.2-12.0); Monocyte# 0.64 X10^3/uL; Monocyte% 7.4 % (0-10); NRBC Flagged by Analyzer 0 % (0-5); Neutrophil # 4.92 X10^3/uL (2.7-7.7); Neutrophil % 56.4 % (47-70); Platelet Count 375 K/mm3 (150-450); RBC Distribution Width CV 13.1 % (11.6-14.6); Red Blood Count 4.39 M/mm3 (4.2-5.4); White Blood Count 8.7 K/mm3 (4.4-11.0)
[2021-04-04 15:56] LABS: Microalbumin,Random Urine 14.5 mg/L (NO RANGE EST.); Microalbumin:Creatinine Ratio 11.8 mg/g CRE (<30 mg/g CRE)
[2021-04-04 16:13] LABS: ALB/GLOB Ratio 1.1 RATIO (0.9-2.4); AST(SGOT) 15 U/L (15-37); Alanine Aminotransfer ALT/SGPT 26 U/L (13-56); Albumin, Serum 3.8 g/dL (3.2-5.0); Alkaline Phosphatase 108 U/L (45-117); Amylase 30 U/L (25-115); Anion Gap 3 (5-15); BUN 9 mg/dL (7-18); BUN/Creat Ratio 14.3 RATIO (10-20); Calcium,Total 9.7 mg/dL (8.5-10.1); Chloride 105 mmol/L (98-107); Cholesterol 176 mg/dL (200); Creatinine, Serum 0.63 mg/dL (0.55-1.02); EST Glomerular Filtration Rate 119 mL/min (>60); Est Glom Filt Rate - Afr Amer 144 mL/min (>60); Globulin 3.5 g/dL (2.2-4.2); Glucose 145 mg/dL (74-106); High Density Lipoprotein 44 mg/dL; Lipase 64 U/L (73-393); Protein, Total 7.3 g/dL (6.4-8.2); Sodium Level 137 mmol/L (136-145); Triglycerides 193 mg/dL; Very Low Density Lipoprotein 39 mg/dL (5-40)
== END ==
PROVIDERS: PCP Internal Medicine; Referring Provider Physician Assistant; Visit Provider Physician Assistant
DX: E11.9 Type 2 diabetes mellitus without complications (principal); E66.01 Morbid (severe) obesity due to excess calories; R10.9 Unspecified abdominal pain; Z68.35 Body mass index [BMI] 35.0-35.9, adult; Z79.4 Long term (current) use of insulin; Z98.84 Bariatric surgery status
CPT/HCPCS: 36415; 80053; 80061; 81001; 82043; 82150; 82570; 83690; 85025

== ENCOUNTER 2021-04-30 16:18 | Emergency (ER) | payer MEDICAID, SELFPAY ==
[2021-04-30 16:18] VITALS: BP 119/73; PULSE 91; RESP 16; TEMP 36.4; O2SAT 96; BMI 33.3
[2021-04-30 16:34] VITALS: RESP 16
--- NOTE | 2021-04-30 16:39 | CT_ITS ---
STUDY: CT ABDOMEN AND PELVIS WITHOUT CONTRAST REASON FOR EXAM: Female, 31 years old. Kidney Stone; R flank pain RADIATION DOSAGE (If Supplied By Facility): CTDIvol = ( 19.38 ) mGy, DLP = ( 1036.20 ) mGycm TECHNIQUE: Transaxial images were obtained from the dome of the diaphragm to the symphysis pubis without oral contrast, and without intravenous contrast. Sagittal and coronal images were reconstructed. Individualized dose optimization techniques were used for this CT. COMPARISON: 08/07/2020. FINDINGS: Lung bases clear. Unremarkable liver, spleen, pancreas, and adrenals on this unenhanced study. Punctate nonobstructing stones in the bilateral kidneys. Subcentimeter hypodensity in the lower pole of the right kidney, probably a cyst but too small to fully characterize..Status post cholecystectomy with associated stable biliary dilatation. Normal appendix. Status post gastric bypass surgery. Bowel loops nonobstructed. No free air or free fluid. No adenopathy. No abdominal aortic aneurysm. Sections through the pelvis demonstrate no adnexal mass. Incompletely distended urinary bladder. Status post right total hip arthroplasty. No acute osseous abnormality. Posterior disc bulges at L4-L5 and L5-S1. CT/Abdomen/Pelvis without Cont IMPRESSION: Punctate nonobstructing renal stones bilaterally. No radiopaque stone in the ureters and the urinary bladder. Electronically Signed: Glenn Silva MD at 18:09 EST Tel , Service support ,
--- NOTE | 2021-04-30 16:39 | ED.VIS.GI ---
HPI HPI - GI History of Present Illness Chief Complaint: Flank Pain Informant: patient Abdominal Pain/Flank Pain Onset: Days (3) Context: Sudden Onset Timing: Continuous and Waxes and wanes Quality: Aching Location: Right Flank Current Severity: Moderate Maximum Severity: Severe Worsened by: - (Urinating/Valsalva) Relieved by: Nothing Nausea/Vomiting/Emesis GI Symptom: Positive for Nausea and Vomiting Diarrhea/Melena/Hematochezia GI Symptom: Negative for Diarrhea, Melena and Hematochezia Associated Symptoms Associated Symptoms: Positive for Frequency and Urgency; Negative for Dysuria and Hematuria Narrative Narrative: History of kidney stones, has required laser treatment/removal in the past, sees Dr. Good, feels like she has another 1 has been there for 3 days and symptoms are getting worse. No fevers or chills. No hematuria or dysuria but urinating makes her right flank pain worse. Denies likely . No recent imaging performed. [facility] Medical History (Updated 04/30/21 @ 18:[address] Kip Calderon MD) Abdominal pain Diabetes mellitus Easy bruising Flu vaccine need Frequent headaches History of kidney stones Hypertension Kidney stone Right hip pain Seasonal allergies Vision problems Vitamin D deficiency Vitamin deficiency Home Medications metformin 1,000 mg tablet 1,000 mg PO BID #60 tab 03/21/20 [Rx Last Taken Unknown] pen needle, diabetic 32 gauge x #100 ea 03/31/20 [Rx Last Taken Unknown] blood-glucose meter #1 ea 04/05/20 [Rx Last Taken Unknown] flash glucose sensor #1 ea 04/14/20 [Rx Last Taken Unknown] blood sugar diagnostic #150 ea 04/30/20 [Rx Last Taken Unknown] glimepiride 4 mg PO BID 08/07/20 [History Last Taken Unknown] metoprolol tartrate 50 mg PO BID 08/07/20 [History Last Taken Unknown] multivitamin 1 ea PO DAILY 08/07/20 [History Last Taken Unknown] acetaminophen 500 mg tablet 500 ea PO Q8 PRN 09/13/20 [History Last Taken Unknown] fluticasone propionate 50 mcg/actuation nasal spray,suspension 2 spray INTRANASAL PRN PRN 09/30/20 [History Last Taken Unknown] omeprazole 40 mg capsule,delayed release 40 mg PO DAILY #60 cap 09/30/20 [Rx Last Taken Unknown] Allergy/AdvReac Type Severity Reaction Status Date / Time aspirin Allergy Rash Verified 04/30/21 16:20 Penicillins Allergy Rash Verified 04/30/21 16:20 PAPER TAPE Allergy Other Uncoded 04/30/21 16:20 Family History Mother Diabetes CVA (cerebral vascular accident) Anxiety History of blood clots Depression Myocardial infarction Hypertension Thyroid disorder Father Diabetes Alcoholism Anxiety Bleeding disorder History of blood clots Depression Liver disease Grandmother , 62 Diabetes Breast cancer Myocardial infarction Grandfather , 64 Diabetes Arthritis Myocardial infarction Brother Seizures Son Seizures Surgical History History of History of renal stent History of right hip replacement (~07/2018) S/P cholecystectomy S/P dilation and curettage (~09/13/17) S/P gastric bypass s/p right hip surgery Social History Smoking Status: Never smoker alcohol intake: never substance use type: does not use caffeine: No what type of physical activity do you participate in: walking and bicycling frequency: 1-2 times per week seatbelt use: always do you feel safe at home: Yes additional social history: - [employer] [place] for [employer] 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 ROS ED Constitutional Constitutional ED: Denies chills or fever(s) Eyes Eyes: Denies change in vision or diplopia ENT ENT ED: Denies rhinorrhea or sore throat Cardiovascular Cardiovascular: Denies chest pain or palpitations Respiratory/Chest Respiratory/Chest: Denies cough or dyspnea Gastrointestinal Gastrointestinal: Reports nausea and vomiting; Denies diarrhea Genitourinary Genitourinary ED: Reports as per HPI, flank pain, urinary frequency and urinary urgency; Denies dysuria or hematuria Musculoskeletal Musculoskeletal: Reports back pain; Denies neck pain Integumentary Denies abscess or rash Neurologic Neurologic: Denies headache(s), paresthesias or weakness Psychiatric Psychiatric: Denies anxiety or suicidal thoughts EXAM Physical Exam Const Vital Signs: 04/30/21 16:18 04/30/21 16:34 04/30/21 18:25 Temperature 97.6 F L Temperature Source Temporal Pulse Rate 91 Respiratory Rate 16 16 16 Blood Pressure 119/73 Blood Pressure Mean 88 Pulse Ox 96 Oxygen Delivery Method Room Air Positive well nourished and well developed General Appearance ED: well developed and NAD HEENT Reports moist mucous membranes normocephalic and atraumatic Eyes PERRL and EOMs intact bilaterally Neck full ROM and supple Resp normal respiratory effort and clear to auscultation bilaterally Cardio regular rate, regular rhythm and no murmurs GI non-distended GI Narrative: Very mildly tender right upper flank otherwise abdomen benign. No guarding or rebound tenderness. Auscultation: normoactive bowel sounds Palpation: soft Back/Spine General Back: CVA tenderness right and other FROM Extremity normal to inspection General Extremety ED: Negative for edema, pulses abnormal or tenderness General Extremity: Negative for edema or pulses abnormal Neuro oriented x3, CN's II-XII intact bilaterally and no sensory deficits noted Sensorium / Orientation: awake and alert Motor Exam: strength 5/5 throughout Skin no rashes or lesions noted and no wounds MDM MDM MDM Narrative Medical decision making narrative: Labs below are noted and unremarkable, negative , urinalysis without infection, and CT showing no obstructive uropathy. Patient's pain and nausea was treated as well as IV fluids, she looks well, but she states she still has pain. She was given an oxycodone prior to discharge, she is comfortable with that plan follow-up as needed. Lab Data Attestation: I reviewed the patient's lab results. Labs: Laboratory Results - last 24 hr 04/30/21 04/30/21 04/30/21 16:30 16:30 16:30 WBC 10.2 RBC 4.21 Hgb 13.3 Hct 37.4 MCV 88.8 MCH 31.6 MCHC 35.6 RDW Std Deviation 42.0 RDW Coeff of Paty 12.9 Plt Count 378 MPV 9.3 Immature Gran % (Auto) 0.300 Neut % (Auto) 63.6 Lymph % (Auto) 27.5 Carlton % (Auto) 6.9 Eos % (Auto) 1.3 Baso % (Auto) 0.4 Absolute Neuts (auto) 6.5 Absolute Lymphs (auto) 2.79 Nucleated RBC % 0 Sodium 140 Potassium 3.8 Chloride 107 Carbon Dioxide 25.0 Anion Gap 8 BUN 13 Creatinine 0.82 Estim Creat Clear Calc 98.44 Est GFR (MDRD) Af Amer 106 Est GFR (MDRD) Non-Af 88 BUN/Creatinine Ratio 15.9 Glucose 120 H Calcium 8.8 Serum , Qual NEGATIVE Urine Color Urine Clarity Urine pH Ur Specific [place] Urine Protein Urine Glucose (UA) Urine Ketones Urine Occult Blood Urine Nitrite Urine Bilirubin Urine Urobilinogen Ur Leukocyte Esterase Urine RBC Urine WBC Ur Squamous Epith Cells Urine Bacteria Urine Mucus 04/30/21 16:44 WBC RBC Hgb Hct MCV MCH MCHC RDW Std Deviation RDW Coeff of Paty Plt Count MPV Immature Gran % (Auto) Neut % (Auto) Lymph % (Auto) Carlton % (Auto) Eos % (Auto) Baso % (Auto) Absolute Neuts (auto) Absolute Lymphs (auto) Nucleated RBC % Sodium Potassium Chloride Carbon Dioxide Anion Gap BUN Creatinine Estim Creat Clear Calc Est GFR (MDRD) Af Amer Est GFR (MDRD) Non-Af BUN/Creatinine Ratio Glucose Calcium Serum , Qual Urine Color Yellow Urine Clarity Clear Urine pH 6.0 Ur Specific [place] 1.025 Urine Protein Negative Urine Glucose (UA) Normal Urine Ketones 5 H Urine Occult Blood Negative Urine Nitrite Negative Urine Bilirubin Negative Urine Urobilinogen Normal Ur Leukocyte Esterase Negative Urine RBC 0 SEEN Urine WBC 0 SEEN Ur Squamous Epith Cells 0-5 SEEN Urine Bacteria 0 SEEN Urine Mucus 0 SEEN Radiography Diagnostic Testing: Clinical Impression(s) from Imaging Studies Abdomen/Pelvis CT 04/30/21 16:39 IMPRESSION: Punctate nonobstructing renal stones bilaterally. No radiopaque stone in the ureters and the urinary bladder. Electronically Signed: Glenn Silva MD at 18:09 EST Tel , Service support , Discharge Plan Triage Chief Complaint: Flank Pain ED Provider: Kip Calderon Dx/Rx/DC Orders Clinical Impression: Renal colic on right side, Bilateral nephrolithiasis Instructions: ED Kidney Stone Undescended No ..., ED Kidney Stone, Passed Prescriptions: No Action (DME) FreeStyle [place] 14 Day Sensor Kit See Rx Instructions .ROUTE .MEDSUPPLY Qty: 1 RF: 5 acetaminophen 500 mg tablet 500 ea PO Q8 PRN (Reason: Pain) RF: 0 fluticasone propionate 50 mcg/actuation spray,suspension 2 spray INTRANASAL PRN PRN (Reason: Allergic Symptoms) RF: 0 omeprazole 40 mg capsule,delayed release(DR/EC) 40 mg PO DAILY Qty: 60 RF: 2 multivitamin 1 EACH tablet 1 ea PO DAILY RF: 0 metoprolol tartrate 50 MG tablet 50 mg PO BID RF: 0 glimepiride 4 MG tablet 4 mg PO BID RF: 0 metformin 1,000 mg tablet 1,000 mg PO BID Qty: 60 RF: 6 (DME) pen needle, diabetic [BD Ultra-Fine Jeane Pen Needle] 32 gauge x 5/32 needle See Rx Instructions .ROUTE .MEDSUPPLY Qty: 100 RF: 0 (DME) blood-glucose meter [FreeStyle [place]reda Lite] Kit See Rx Instructions .ROUTE .MEDSUPPLY Qty: 1 RF: 0 (DME) FreeStyle Lite Strips Strip See Rx Instructions .ROUTE .MEDSUPPLY Qty: 150 RF: 12 Primary Care Provider: Kellie Dorantes Referrals: Kellie Dorantes MD [Primary Care Provider] - Elizabeth Montoya MD [STAFF PHYSICIAN] - As Needed Disposition Disposition: Home, Self Care
[2021-04-30] MEDS: Ondansetron 4 MG/2 ML Vial IV (16:47)
[2021-04-30] MEDS: Ketorolac 30 MG/ML Syringe IV (16:50)
[2021-04-30] MEDS: Morphine 4 MG/ML Syringe IV (16:51)
[2021-04-30 16:52] LABS: Absolute Lymphocyte Count 2.79 X10^3/uL (0.83-4.51); Absolute Neutrophil Count 6.5 X10^3/uL (2.0-7.7); Basophil# 0.04 X10^3/uL; Basophil% 0.4 % (0-1); Eosinophil# 0.13 X10^3/uL; Eosinophils% 1.3 % (0-5); Hematocrit 37.4 % (37-47); Hemoglobin 13.3 g/dL (12.0-15.0); Lymphocyte # 2.79 X10^3/ul (0.83-4.51); Lymphocyte % 27.5 % (19-41); Mean Corp Hgb Conc 35.6 g/dL (32-36); Mean Corpuscular Hgb 31.6 pg (27.0-32.0); Mean Corpuscular Volume 88.8 fL (81-99); Mean Platelet Vol. 9.3 fl (6.2-12.0); Monocyte% 6.9 % (0-10); NRBC Flagged by Analyzer 0 % (0-5); Neutrophil # 6.47 X10^3/uL (2.7-7.7); Neutrophil % 63.6 % (47-70); Platelet Count 378 K/mm3 (150-450); RBC Distribution Width CV 12.9 % (11.6-14.6); Red Blood Count 4.21 M/mm3 (4.2-5.4); White Blood Count 10.2 K/mm3 (4.4-11.0)
[2021-04-30 16:57] LABS: Bacteria 0 SEEN /hpf (None Seen); Mucous, Urine 0 SEEN /hpf (<or=2+); Red Blood Cells-Urine 0 SEEN /hpf (0-5); White Blood Cells 0 SEEN /hpf (0-5)
[2021-04-30 16:58] LABS: Anion Gap 8 (5-15); BUN 13 mg/dL (7-18); BUN/Creat Ratio 15.9 RATIO (10-20); Calcium,Total 8.8 mg/dL (8.5-10.1); Chloride 107 mmol/L (98-107); Creatinine, Serum 0.82 mg/dL (0.55-1.02); EST Glomerular Filtration Rate 88 mL/min (>60); Est Glom Filt Rate - Afr Amer 106 mL/min (>60); Estimated Creatinine Clearance 98.44 ml/min; Glucose 120 mg/dL (74-106); Potassium 3.8 mmol/L (3.5-5.1); Sodium Level 140 mmol/L (136-145)
[2021-04-30 17:04] LABS: Color, Urine Yellow (Yellow); Glucose, Dipstick Normal (Normal); Ketone-Dipstick 5 mg/dl (Negative); Leukocyte Esterase-Dipstick Negative /ul (Negative); Nitrite-Dipstick Negative (Negative); Occult Blood-Urine Negative /ul (Negative); Protein-Dipstick Negative (Negative); Specific Gravity, Urine 1.025 (1.002-1.030); Urine Bilirubin Dipstick Negative (Negative); Urine Clarity Clear (Clear); Urine Urobilinogen Normal (Normal)
[2021-04-30 17:08] LABS: Internal QC Validated? YES +Cl - CLEAR BKGD; Pregnancy, Serum, hCG Quali. NEGATIVE Negative
[2021-04-30 17:12] LABS: Squamous Epithelial Cells - UA 0-5 SEEN /hpf (5-10)
[2021-04-30 18:25] VITALS: RESP 16
[2021-04-30] MEDS: oxyCODONE 5 MG Tablet PO (18:49)
[2021-04-30 18:53] VITALS: BP 103/51; PULSE 67; RESP 16; O2SAT 97
--- NOTE | 2021-04-30 18:54 | ED.RN ---
REVIEWED D/C INSTRUCTIONS, FOLLOW UP CARE, AND S/S THAT WOULD WARRANT A RETURN TO THE ED WITH PT. PT VERBALIZED AN UNDERSTANDING AND DENIES FURTHER QUESTIONS FOR THIS RN. PT SKIN P/W/D, RESP EVEN AND UNLABORED, PT A&O X 3, NO DISTRESS NOTED. PT AMBULATED OUT OF ED, GAIT STEADY.
== END 2021-04-30 18:55 | disposition home or self-care (01) ==
PROVIDERS: Emergency Provider Emergency Medicine; PCP Internal Medicine
DX: N20.0 Calculus of kidney (principal); I10 Essential (primary) hypertension; E11.9 Type 2 diabetes mellitus without complications; Z87.442 Personal history of urinary calculi; Z79.84 Long term (current) use of oral hypoglycemic drugs; Z79.899 Other long term (current) drug therapy
CPT/HCPCS: 74176; 80048; 81001; 84703; 85025; 96374; 96375; 99284; A4216; J2405

== ENCOUNTER 2021-05-10 12:40 | Emergency (ER) | payer MEDICAID, SELFPAY ==
[2021-05-10 12:41] VITALS: BP 111/75; PULSE 120; RESP 16; TEMP 36.6; O2SAT 98; BMI 32.5
--- NOTE | 2021-05-10 13:08 | EDS_ITS ---
HPI HPI - GI History of Present Illness Chief Complaint: Flank Pain Narrative Narrative: Patient presents with abdominal pain, nausea and vomiting for the last 4 to 5 days. She relates history of remote gastric bypass surgery a year ago at [facility]. She was seen at [facility] and was reportedly sent to [facility] for special testing/MRCP because they thought that her bile duct was blocked. She states that she spent last week Saturday through Saturday at [facility]. They did an MRI of her abdomen and there was no bile duct blockage. She states that ever since she was released she has had multiple episodes of nausea and vomiting and abdominal pain. She has pain in her back. She has pain in her sides. She denies any fevers or chills. In the last 24 hours she has vomited 4 times without any blood in her emesis. No other symptoms. Past medical history includes diabetes. [facility] Medical History Abdominal pain Diabetes mellitus Easy bruising Flu vaccine need Frequent headaches History of kidney stones Hypertension Kidney stone Right hip pain Seasonal allergies Vision problems Vitamin D deficiency Vitamin deficiency Home Medications metformin 1,000 mg tablet 1,000 mg PO BID #60 tab 03/21/20 [Rx Last Taken Unknown] pen needle, diabetic 32 gauge x #100 ea 03/31/20 [Rx Last Taken Unknown] glimepiride 4 mg PO BID 08/07/20 [History Last Taken Unknown] metoprolol tartrate 50 mg PO BID 08/07/20 [History Last Taken Unknown] multivitamin 1 ea PO DAILY 08/07/20 [History Last Taken Unknown] acetaminophen 500 mg tablet 500 ea PO Q8 PRN 09/13/20 [History Last Taken Unknown] fluticasone propionate 50 mcg/actuation nasal spray,suspension 2 spray INTRANASAL PRN PRN 09/30/20 [History Last Taken Unknown] omeprazole 40 mg capsule,delayed release 40 mg PO DAILY #60 cap 09/30/20 [Rx Last Taken Unknown] True Metrix Glucose Meter #1 ea NS 05/01/21 [Rx Last Taken Unknown] True Metrix Glucose Test Strip #100 ea NS 05/01/21 [Rx Last Taken Unknown] Allergy/AdvReac Type Severity Reaction Status Date / Time aspirin Allergy Rash Verified 05/10/21 12:45 Penicillins Allergy Rash Verified 05/10/21 12:45 PAPER TAPE Allergy Other Uncoded 05/10/21 12:45 Family History Mother Diabetes CVA (cerebral vascular accident) Anxiety History of blood clots Depression Myocardial infarction Hypertension Thyroid disorder Father Diabetes Alcoholism Anxiety Bleeding disorder History of blood clots Depression Liver disease Grandmother , 62 Diabetes Breast cancer Myocardial infarction Grandfather , 64 Diabetes Arthritis Myocardial infarction Brother Seizures Son Seizures Surgical History History of History of renal stent History of right hip replacement (~07/2018) S/P cholecystectomy S/P dilation and curettage (~09/13/17) S/P gastric bypass s/p right hip surgery Social History Smoking Status: Never smoker alcohol intake: never substance use type: does not use caffeine: No what type of physical activity do you participate in: walking and bicycling frequency: 1-2 times per week seatbelt use: always do you feel safe at home: Yes additional social history: - [employer] 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 ROS ED ROS Narrative Constitutional: No fever, no chills. HEENT: No sore throat. No neck pain. No loss of vision. No rhinorrhea. Cardiovascular: No chest pain. No palpitations. No pedal edema. Respiratory: No cough, no shortness of breath. Abdominal: Positive abdominal pain. Positive nausea. Positive vomiting. Genitourinary: No dysuria. No hematuria. Musculoskeletal: No myalgias. No arthralgias. Neurologic: No headaches. No dizziness. No lightheadedness. Skin: No rash. No change in color. Psychiatric: No depression. No anxiety. EXAM Physical Exam Narrative Exam Narrative: Afebrile. Vital signs noted. HEENT: Normocephalic. Atraumatic. PERRL, EOMI. Neck soft and supple. No point tenderness or step off. Cardiovascular: Tachycardia. No murmurs, rubs, or gallops appreciated. Respiratory: No tachypnea. Lungs clear to auscultation bilaterally. Gastrointestinal: Abdomen soft, obese, diffuse tenderness, with normoactive bowel sounds. No rebound or guarding. Neurological: Awake. Alert. Nonfocal, nonlateralizing. Skin: No rash. Normal color. No pallor. Musculoskeletal: No pedal edema. Full range of motion extremities. Const Vital Signs: 05/10/21 12:41 Temperature 97.8 F Temperature Source Temporal Pulse Rate 120 H Respiratory Rate 16 Blood Pressure 111/75 Blood Pressure Mean 87 Pulse Ox 98 Oxygen Delivery Method Room Air MDM MDM MDM Narrative Medical decision making narrative: Comprehensive work-up was pursued. She was bolused normal saline administered morphine and Zofran. She has normal white count of 7.8, hemoglobin stable at 14. Her comprehensive metabolic panel does not show an electrolyte abnormality, her LFTs show an AST of 13, and an ALT of 30, and alk phos that is normal at 117. Lipase is low at 65. Serum is negative. CT of the abdomen and pelvis shows no evidence of obstruction or ureteral lithiasis. There is a left-sided ovarian cyst. She has fatty infiltration of the liver. Her urinalysis shows no evidence of infection. She was given 1 additional dose of morphine prior to discharge as she has an allergy to aspirin, and given her gastric bypass I am unsure about giving her Toradol. Regardless, I do feel she can be discharged safely home with follow-up to her primary care physician, and any other physicians that were recommended upon her discharge from [facility]. Return instructions were reviewed. Disposition is discharged home in stable condition. Lab Data Attestation: I reviewed the patient's lab results. Labs: Laboratory Results - last 24 hr 05/10/21 05/10/21 05/10/21 12:53 12:53 12:53 WBC 7.8 RBC 4.57 Hgb 14.0 Hct 41.2 MCV 90.2 MCH 30.6 MCHC 34.0 RDW Std Deviation 42.6 RDW Coeff of Paty 13.0 Plt Count 382 MPV 9.4 Immature Gran % (Auto) 0.400 Neut % (Auto) 64.9 Lymph % (Auto) 25.8 Sully % (Auto) 7.0 Eos % (Auto) 1.3 Baso % (Auto) 0.6 Absolute Neuts (auto) 5.1 Absolute Lymphs (auto) 2.02 Nucleated RBC % 0 Sodium 140 Potassium 3.8 Chloride 105 Carbon Dioxide 25.0 Anion Gap 10 BUN 15 Creatinine 0.79 Estim Creat Clear Calc 102.18 Est GFR (MDRD) Af Amer 110 Est GFR (MDRD) Non-Af 91 BUN/Creatinine Ratio 18.9 Glucose 249 H Calcium 9.5 Total Bilirubin 1.00 AST 13 L ALT 30 Alkaline Phosphatase 117 Total Protein 7.6 Albumin 3.8 Globulin 3.8 Albumin/Globulin Ratio 1.0 Lipase 65 L Serum , Qual NEGATIVE Urine Color Urine Clarity Urine pH Ur Specific [place] Urine Protein Urine Glucose (UA) Urine Ketones Urine Occult Blood Urine Nitrite Urine Bilirubin Urine Urobilinogen Ur Leukocyte Esterase Urine RBC Urine WBC Ur Squamous Epith Cells Urine Bacteria Urine Mucus 05/10/21 14:33 WBC RBC Hgb Hct MCV MCH MCHC RDW Std Deviation RDW Coeff of Paty Plt Count MPV Immature Gran % (Auto) Neut % (Auto) Lymph % (Auto) Sully % (Auto) Eos % (Auto) Baso % (Auto) Absolute Neuts (auto) Absolute Lymphs (auto) Nucleated RBC % Sodium Potassium Chloride Carbon Dioxide Anion Gap BUN Creatinine Estim Creat Clear Calc Est GFR (MDRD) Af Amer Est GFR (MDRD) Non-Af BUN/Creatinine Ratio Glucose Calcium Total Bilirubin AST ALT Alkaline Phosphatase Total Protein Albumin Globulin Albumin/Globulin Ratio Lipase Serum , Qual Urine Color Yellow Urine Clarity Sl. Cloudy Urine pH 5.0 Ur Specific [place] 1.015 Urine Protein Negative Urine Glucose (UA) Normal Urine Ketones Negative Urine Occult Blood Negative Urine Nitrite Negative Urine Bilirubin Negative Urine Urobilinogen Normal Ur Leukocyte Esterase Negative Urine RBC 0 SEEN Urine WBC 0 SEEN Ur Squamous Epith Cells 0-5 SEEN Urine Bacteria 1+ Urine Mucus 0 SEEN Radiography Diagnostic Testing: Clinical Impression(s) from Imaging Studies Abdomen/Pelvis CT 05/10/21 13:42 IMPRESSION: 2.6 cm x 3.97 septated cyst in the left ovary. Fatty infiltration of the liver. Status post subtotal gastrectomy. Electronically Signed: Jamison Panchal MD at 14:16 EST , Service support , Discharge Plan Triage Chief Complaint: Flank Pain ED Provider: Crow Horowitz Dx/Rx/DC Orders Clinical Impression: Acute flank pain, Abdominal pain Instructions: ED Abdominal Pain Unkn Cause Fem, ED Flank Pain, Uncertain Cause Prescriptions: No Action acetaminophen 500 mg tablet 500 ea PO Q8 PRN (Reason: Pain) RF: 0 fluticasone propionate 50 mcg/actuation spray,suspension 2 spray INTRANASAL PRN PRN (Reason: Allergic Symptoms) RF: 0 omeprazole 40 mg capsule,delayed release(DR/EC) 40 mg PO DAILY Qty: 60 RF: 2 multivitamin 1 EACH tablet 1 ea PO DAILY RF: 0 metoprolol tartrate 50 MG tablet 50 mg PO BID RF: 0 glimepiride 4 MG tablet 4 mg PO BID RF: 0 metformin 1,000 mg tablet 1,000 mg PO BID Qty: 60 RF: 6 (DME) pen needle, diabetic [BD Ultra-Fine Jeane Pen Needle] 32 gauge x 5/32 needle See Rx Instructions .ROUTE .MEDSUPPLY Qty: 100 RF: 0 (DME) blood-glucose meter [True Metrix Glucose Meter] Misc See Rx Instructions .ROUTE .MEDSUPPLY Qty: 1 RF: 0 (DME) True Metrix Glucose Test Strip Strip See Rx Instructions .ROUTE .MEDSUPPLY Qty: 100 RF: 8 Primary Care Provider: Kellie Dorantes Referrals: Kellie Dorantes MD [Primary Care Provider] - 05/12/21 Disposition Disposition: Home, Self Care
[2021-05-10] MEDS: Morphine 4 MG/ML Syringe IV ×2 (13:16→15:06)
[2021-05-10] MEDS: 0.9% Normal Saline 1,000 ML 1000 ML IV (13:16)
[2021-05-10] MEDS: Ondansetron 4 MG/2 ML Vial IV (13:16)
[2021-05-10 13:23] LABS: Absolute Lymphocyte Count 2.02 X10^3/uL (0.83-4.51); Absolute Neutrophil Count 5.1 X10^3/uL (2.0-7.7); Basophil# 0.05 X10^3/uL; Basophil% 0.6 % (0-1); Eosinophils% 1.3 % (0-5); Hematocrit 41.2 % (37-47); Lymphocyte # 2.02 X10^3/ul (0.83-4.51); Lymphocyte % 25.8 % (19-41); Mean Corpuscular Hgb 30.6 pg (27.0-32.0); Mean Corpuscular Volume 90.2 fL (81-99); Mean Platelet Vol. 9.4 fl (6.2-12.0); Monocyte# 0.55 X10^3/uL; NRBC Flagged by Analyzer 0 % (0-5); Neutrophil # 5.08 X10^3/uL (2.7-7.7); Neutrophil % 64.9 % (47-70); Platelet Count 382 K/mm3 (150-450); RBC Distribution Width SD 42.6 fl (35.1-43.9); Red Blood Count 4.57 M/mm3 (4.2-5.4); White Blood Count 7.8 K/mm3 (4.4-11.0)
[2021-05-10] MEDS: Contrast Allergy Safety Check IV (13:25)
[2021-05-10 13:34] LABS: Internal QC Validated? YES +Cl - CLEAR BKGD; Pregnancy, Serum, hCG Quali. NEGATIVE Negative
--- NOTE | 2021-05-10 13:42 | CT_ITS ---
STUDY: CT ABDOMEN AND PELVIS WITH CONTRAST REASON FOR EXAM: Female, 31 years old. Abdominal Pain RADIATION DOSAGE (If Supplied By Facility): CTDIvol = ( 19.31 ) mGy, DLP = ( 1234.39 ) mGycm TECHNIQUE: Transaxial images were obtained from the dome of the diaphragm to the symphysis pubis without oral contrast. IV 100mL Isovue-370 was administered. Sagittal and coronal images were reconstructed. Individualized dose optimization techniques were used for this CT. COMPARISON: Comparison is made with prior study dated 04/30/2021. FINDINGS: The visualized lung bases are unremarkable. The visualized portions of the heart are within normal limits. There is decreased attenuation of the liver consistent with steatosis. There are surgical clips in the gallbladder fossa consistent with a prior cholecystectomy. Normal spleen. Normal pancreas. Normal bilateral adrenal glands. Normal right kidney. Normal left kidney. The patient is status post subtotal gastrectomy. Normal small intestine. Normal colon. The appendix is visualized and appears normal. Normal abdominal aorta. Normal inferior vena cava. Normal retroperitoneum. Normal urinary bladder. There is a 2.6 cm x 3.9 cm septated cyst in the left ovary. Normal abdominal wall. Prior right total hip replacement. CT/Abdomen/Pelvis W IV Cont ONLY IMPRESSION: 2.6 cm x 3.97 septated cyst in the left ovary. Fatty infiltration of the liver. Status post subtotal gastrectomy. Electronically Signed: Jamison Panchal MD at 14:16 EST , Service support ,
[2021-05-10 13:51] LABS: AST(SGOT) 13 U/L (15-37); Alanine Aminotransfer ALT/SGPT 30 U/L (13-56); Albumin, Serum 3.8 g/dL (3.2-5.0); Alkaline Phosphatase 117 U/L (45-117); Anion Gap 10 (5-15); BUN 15 mg/dL (7-18); BUN/Creat Ratio 18.9 RATIO (10-20); Calcium,Total 9.5 mg/dL (8.5-10.1); Chloride 105 mmol/L (98-107); Creatinine, Serum 0.79 mg/dL (0.55-1.02); EST Glomerular Filtration Rate 91 mL/min (>60); Est Glom Filt Rate - Afr Amer 110 mL/min (>60); Estimated Creatinine Clearance 102.18 ml/min; Globulin 3.8 g/dL (2.2-4.2); Glucose 249 mg/dL (74-106); Lipase 65 U/L (73-393); Potassium 3.8 mmol/L (3.5-5.1); Protein, Total 7.6 g/dL (6.4-8.2); Sodium Level 140 mmol/L (136-145)
[2021-05-10 14:41] LABS: Mucous, Urine 0 SEEN /hpf (<or=2+); Red Blood Cells-Urine 0 SEEN /hpf (0-5); White Blood Cells 0 SEEN /hpf (0-5)
[2021-05-10 14:43] LABS: Color, Urine Yellow (Yellow); Glucose, Dipstick Normal (Normal); Ketone-Dipstick Negative (Negative); Leukocyte Esterase-Dipstick Negative /ul (Negative); Nitrite-Dipstick Negative (Negative); Occult Blood-Urine Negative /ul (Negative); Protein-Dipstick Negative (Negative); Specific Gravity, Urine 1.015 (1.002-1.030); Urine Bilirubin Dipstick Negative (Negative); Urine Clarity Sl. Cloudy (Clear); Urine Urobilinogen Normal (Normal)
[2021-05-10 14:49] LABS: Bacteria 1+ /hpf (None Seen); Squamous Epithelial Cells - UA 0-5 SEEN /hpf (5-10)
[2021-05-10 15:09] VITALS: BP 114/71; PULSE 99; RESP 16; O2SAT 99
[2021-05-10 15:31] VITALS: BP 115/70; RESP 16
== END 2021-05-10 15:34 | disposition home or self-care (01) ==
PROVIDERS: Emergency Provider Emergency Medicine; PCP Internal Medicine
DX: R10.9 Unspecified abdominal pain (principal); R11.2 Nausea with vomiting, unspecified; N83.202 Unspecified ovarian cyst, left side; I10 Essential (primary) hypertension; E11.9 Type 2 diabetes mellitus without complications; K76.0 Fatty (change of) liver, not elsewhere classified; Z87.442 Personal history of urinary calculi; Z98.84 Bariatric surgery status; Z79.84 Long term (current) use of oral hypoglycemic drugs; Z79.899 Other long term (current) drug therapy
CPT/HCPCS: 74177; 80053; 81001; 83690; 84703; 85025; 96361; 96372; 96374; 96375; 96376; 99283; J7030; Q9967; A4216; J2405

== ENCOUNTER → 2021-05-12 11:20 | Outpatient (CLI) | payer MEDICAID, SELFPAY ==
--- NOTE | 2021-05-12 11:51 | US_ITS ---
STUDY: ULTRASOUND OF THE FEMALE PELVIS - COMPLETE REASON FOR EXAM: Female, 31 years old. Ovarian cyst LMP: 04/20/2021 TECHNIQUE: Transabdominal and Transvaginal TECHNICAL QUALITY: Adequate. COMPARISON: None. FINDINGS: The uterus is anteverted and is tilted to the left side of the pelvis. The uterus measures 7.5 x 5.4 x 3.8 cm. Normal uterine cervix. The endometrium measures 6 mm in thickness, and is fluid distended. There is no demonstrated endometrial mass. There is no demonstrated myometrial mass. I.U.D. - The patient does not have an I.U.D. The right ovary was previously removed The left ovary is visualized. The left ovary measures 2.5 x 2.2 x 2.5 cm. There is a septated 2.5 x 2.5 cm left ovarian cyst. There is normal arterial and normal venous vascularity. There is no fluid in the cul-de-sac. The bladder is incompletely distended US/Transvaginal Non- IMPRESSION: Fluid distended endometrium, likely hemorrhage. Septated left ovarian cyst, given patient''s age, no specific follow-up is needed No free fluid in the cul-de-sac, bladder is decompressed Right ovary was previously removed Electronically Signed: Abdi Yu MD at 13:36 EST , Service support ,
[2021-05-12 12:04] LABS: Absolute Lymphocyte Count 2.64 X10^3/uL (0.83-4.51); Absolute Neutrophil Count 5.6 X10^3/uL (2.0-7.7); Basophil# 0.05 X10^3/uL; Basophil% 0.6 % (0-1); Eosinophil# 0.14 X10^3/uL; Eosinophils% 1.5 % (0-5); Hematocrit 39.4 % (37-47); Hemoglobin 13.6 g/dL (12.0-15.0); Lymphocyte # 2.64 X10^3/ul (0.83-4.51); Mean Corp Hgb Conc 34.5 g/dL (32-36); Mean Corpuscular Hgb 30.6 pg (27.0-32.0); Mean Corpuscular Volume 88.5 fL (81-99); Mean Platelet Vol. 9.4 fl (6.2-12.0); Monocyte# 0.69 X10^3/uL; Monocyte% 7.6 % (0-10); NRBC Flagged by Analyzer 0 % (0-5); Neutrophil # 5.55 X10^3/uL (2.7-7.7); Neutrophil % 61.1 % (47-70); Platelet Count 388 K/mm3 (150-450); RBC Distribution Width CV 12.6 % (11.6-14.6); RBC Distribution Width SD 41.2 fl (35.1-43.9); Red Blood Count 4.45 M/mm3 (4.2-5.4); White Blood Count 9.1 K/mm3 (4.4-11.0)
== END ==
PROVIDERS: PCP Internal Medicine; Referring Provider Obstetrics & Gynecology; Visit Provider Obstetrics & Gynecology
DX: N83.209 Unspecified ovarian cyst, unspecified side (principal); R10.9 Unspecified abdominal pain
CPT/HCPCS: 36415; 76830; 85025; 93976

== ENCOUNTER 2021-05-31 11:34 | Emergency (ER) | payer MEDICAID, SELFPAY ==
[2021-05-31 11:35] VITALS: BP 125/73; PULSE 72; RESP 18; TEMP 36.3; O2SAT 99; BMI 32.8
[2021-05-31 13:18] LABS: Absolute Lymphocyte Count 2.71 X10^3/uL (0.83-4.51); Absolute Neutrophil Count 5.6 X10^3/uL (2.0-7.7); Basophil# 0.04 X10^3/uL; Basophil% 0.4 % (0-1); Eosinophil# 0.12 X10^3/uL; Eosinophils% 1.3 % (0-5); Hematocrit 37.8 % (37-47); Hemoglobin 13.2 g/dL (12.0-15.0); Lymphocyte # 2.71 X10^3/ul (0.83-4.51); Lymphocyte % 29.8 % (19-41); Mean Corp Hgb Conc 34.9 g/dL (32-36); Mean Corpuscular Hgb 31.3 pg (27.0-32.0); Mean Corpuscular Volume 89.6 fL (81-99); Monocyte# 0.61 X10^3/uL; Monocyte% 6.7 % (0-10); NRBC Flagged by Analyzer 0 % (0-5); Neutrophil % 61.6 % (47-70); Platelet Count 316 K/mm3 (150-450); RBC Distribution Width SD 42.5 fl (35.1-43.9); Red Blood Count 4.22 M/mm3 (4.2-5.4); White Blood Count 9.1 K/mm3 (4.4-11.0)
[2021-05-31 13:23] LABS: Internal QC Validated? YES +Cl - CLEAR BKGD; Pregnancy, Serum, hCG Quali. NEGATIVE Negative
[2021-05-31 13:30] LABS: Anion Gap 6 (5-15); BUN 9 mg/dL (7-18); BUN/Creat Ratio 17.8 RATIO (10-20); Calcium,Total 9.3 mg/dL (8.5-10.1); Chloride 104 mmol/L (98-107); Creatinine, Serum 0.51 mg/dL (0.55-1.02); EST Glomerular Filtration Rate 153 mL/min (>60); Est Glom Filt Rate - Afr Amer 185 mL/min (>60); Estimated Creatinine Clearance 158.28 ml/min; Glucose 117 mg/dL (74-106); Sodium Level 138 mmol/L (136-145)
--- NOTE | 2021-05-31 13:41 | ED.RN ---
Pt. has had N/V and abdominal pain for two weeks. Has an appointment with gastric bypass surgeon next week.
--- NOTE | 2021-05-31 14:00 | EDS_ITS ---
HPI HPI - GI History of Present Illness Chief Complaint: Abd Pain Informant: patient Narrative Narrative: Patient presents with diffuse abdominal pain nausea vomiting. These are evidently very common symptoms for her. She had this before her gastric bypass about a year ago. Gastric bypass was done in [place]. It was a complete bypass. 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 She is also had C- sections. She states she has been having nausea vomiting for the last week. She commonly has problems with this. Her abdominal pain is diffuse and has never localized. She has moved her bowels but less. No blood in the vomitus or stool. No fevers or chills. Nothing makes it better or worse. She has been seen in multiple facilities recently. She was seen at [facility] in [place] at the beginning of this month. She had CAT scans there. She was then seen down at [facility] and had MRCP's and other studies. She is then seen back here had CAT scans. She has been seen a couple times at [place] recently. She was prescribed some Phenergan and hydrocodone just couple days ago. [facility] Medical History Abdominal pain Diabetes mellitus Easy bruising Flu vaccine need Frequent headaches History of kidney stones Hypertension Kidney stone Right hip pain Seasonal allergies Vision problems Vitamin D deficiency Vitamin deficiency Home Medications metformin 1,000 mg tablet 1,000 mg PO BID #60 tab 03/21/20 [Rx Last Taken Unknown] pen needle, diabetic 32 gauge x 5/32 #100 ea 03/31/20 [Rx Last Taken Unknown] multivitamin 1 ea PO DAILY 08/07/20 [History Last Taken Unknown] True Metrix Glucose Meter #1 ea NS 05/01/21 [Rx Last Taken Unknown] True Metrix Glucose Test Strip #100 ea NS 05/01/21 [Rx Last Taken Unknown] metoprolol succinate 50 mg tablet,extended release 24 hr 50 mg PO BID 05/24/21 [History Last Taken Unknown] dicyclomine 20 mg tablet 20 mg PO TID PRN #30 tab 05/29/21 [Rx Last Taken Unknown] ondansetron 8 mg disintegrating tablet 8 mg PO Q8H PRN #30 tab 05/29/21 [Rx Last Taken Unknown] pantoprazole 40 mg tablet,delayed release 40 mg PO BID #60 tab 05/29/21 [Rx Last Taken Unknown] sucralfate 1 gram tablet 1 g PO TID #90 tab 05/29/21 [Rx Last Taken Unknown] promethazine 25 mg PO Q6H PRN #14 tab 05/31/21 [Rx Last Taken Unknown] Allergy/AdvReac Type Severity Reaction Status Date / Time aspirin Allergy Rash Verified 05/29/21 09:42 Penicillins Allergy Rash Verified 05/29/21 09:42 PAPER TAPE Allergy Other Uncoded 05/18/21 10:48 Family History Mother Diabetes CVA (cerebral vascular accident) Anxiety History of blood clots Depression Myocardial infarction Hypertension Thyroid disorder Father Diabetes Alcoholism Anxiety Bleeding disorder History of blood clots Depression Liver disease Grandmother , 62 Diabetes Breast cancer Myocardial infarction Grandfather , 64 Diabetes Arthritis Myocardial infarction Brother Seizures Son Seizures Surgical History History of History of renal stent History of right hip replacement (~07/2018) S/P cholecystectomy S/P dilation and curettage (~09/13/17) S/P gastric bypass s/p right hip surgery Social History Smoking Status: Never smoker alcohol intake: never substance use type: does not use caffeine: No what type of physical activity do you participate in: walking and bicycling frequency: 1-2 times per week seatbelt use: always do you feel safe at home: Yes additional social history: - [employer] 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 ROS ED Constitutional Constitutional ED: Denies chills, fever(s) or subjective ENT ENT ED: Denies rhinorrhea or sore throat Cardiovascular Cardiovascular: Denies chest pain or palpitations Respiratory/Chest Respiratory/Chest: Denies cough or dyspnea Gastrointestinal Gastrointestinal: Reports abdominal pain, nausea and vomiting; Denies constipation, diarrhea or melena Genitourinary Genitourinary ED: Denies dysuria, hematuria or urinary frequency Musculoskeletal Musculoskeletal: Denies arthralgias, back pain or myalgias Integumentary Denies rash Neurologic Neurologic: Denies headache(s) Endocrine Endocrinology: Denies polydipsia or polyuria Hematologic/Lymphatic Hematologic/Lymphatic: Denies easy bruising Allergic/Immunologic Allergic/Immunologic ED: Denies urticaria EXAM Physical Exam Const Vital Signs: 05/31/21 11:35 05/31/21 15:05 Temperature 97.3 F L Temperature Source Temporal Pulse Rate 72 78 Respiratory Rate 18 14 Blood Pressure 125/73 H 111/84 H Blood Pressure Mean 90 93 Pulse Ox 99 98 Oxygen Delivery Method Room Air Room Air Positive well nourished and well developed General Appearance ED: well developed and NAD HEENT Reports moist mucous membranes Eyes General Eye ED: Negative for pale conjunctiva or scleral icterus Neck No no JVD Resp normal respiratory effort and clear to auscultation bilaterally Auscultation: Negative for rales, rhonchi or wheezes Cardio regular rate and regular rhythm GI non-tender, non-distended and no masses GI Narrative: Despite the complaints of pain, her abdomen is relatively benign. Bowel sounds are slightly decreased but still present. There is no mass. No rashes. There is no notable tenderness. Palpation: soft Back/Spine no CVA tenderness Neuro Sensorium / Orientation: alert and oriented to person Psych mental status grossly normal Skin Lesions: no lesions Rashes: no rashes MDM MDM MDM Narrative Medical decision making narrative: Patient CBC is normal. Electrolytes show no marked abnormalities. Glucose is well controlled at 117. is negative. Urine shows no acute process. Liver function tests are normal other than a total bili of 1.4. She has had this before. CT scan showed no acute p rocess other than some mild thickening of the terminal ileum. This has not been seen on prior scans that I reviewed. I talk with the patient. She has no history or family history of Crohn's or ulcerative colitis. This may be viral associated. She is feeling better now with fluids and meds. She has pain meds at home. She just filled a prescription yesterday and about 2 days before that. I will write her for Phenergan as she has Zofran at home. I will give her a single dose of Decadron to see if this helps with both her nausea and the inflammation. We discussed reasons to return. She has an appointment with her bypass surgeon coming up this week. I will also refer her to gastroenterology as she has had trouble getting into see someone. Lab Data Attestation: I reviewed the patient's lab results. Labs: Laboratory Results - last 24 hr 05/31/21 05/31/21 05/31/21 13:10 13:10 13:10 WBC 9.1 RBC 4.22 Hgb 13.2 Hct 37.8 MCV 89.6 MCH 31.3 MCHC 34.9 RDW Std Deviation 42.5 RDW Coeff of Paty 13.0 Plt Count 316 MPV 9.0 Immature Gran % (Auto) 0.200 Neut % (Auto) 61.6 Lymph % (Auto) 29.8 Garza % (Auto) 6.7 Eos % (Auto) 1.3 Baso % (Auto) 0.4 Absolute Neuts (auto) 5.6 Absolute Lymphs (auto) 2.71 Nucleated RBC % 0 Sodium 138 Potassium 4.0 Chloride 104 Carbon Dioxide 28.0 Anion Gap 6 BUN 9 Creatinine 0.51 L Estim Creat Clear Calc 158.28 Est GFR (MDRD) Af Amer 185 Est GFR (MDRD) Non-Af 153 BUN/Creatinine Ratio 17.8 Glucose 117 H Calcium 9.3 Total Bilirubin Direct Bilirubin AST ALT Alkaline Phosphatase Total Protein Albumin Globulin Lipase Serum , Qual NEGATIVE Urine Color Urine Clarity Urine pH Ur Specific [place] Urine Protein Urine Glucose (UA) Urine Ketones Urine Occult Blood Urine Nitrite Urine Bilirubin Urine Urobilinogen Ur Leukocyte Esterase Urine RBC Urine WBC Ur Squamous Epith Cells Urine Bacteria Urine Mucus 05/31/21 05/31/21 13:10 14:35 WBC RBC Hgb Hct MCV MCH MCHC RDW Std Deviation RDW Coeff of Paty Plt Count MPV Immature Gran % (Auto) Neut % (Auto) Lymph % (Auto) Garza % (Auto) Eos % (Auto) Baso % (Auto) Absolute Neuts (auto) Absolute Lymphs (auto) Nucleated RBC % Sodium Potassium Chloride Carbon Dioxide Anion Gap BUN Creatinine Estim Creat Clear Calc Est GFR (MDRD) Af Amer Est GFR (MDRD) Non-Af BUN/Creatinine Ratio Glucose Calcium Total Bilirubin 1.40 H Direct Bilirubin 0.29 AST 16 ALT 24 Alkaline Phosphatase 93 Total Protein 7.4 Albumin 3.9 Globulin 3.5 Lipase 53 L Serum , Qual Urine Color Yellow Urine Clarity Clear Urine pH 7.0 Ur Specific [place] 1.010 Urine Protein Negative Urine Glucose (UA) Normal Urine Ketones 5 H Urine Occult Blood Negative Urine Nitrite Negative Urine Bilirubin Negative Urine Urobilinogen Normal Ur Leukocyte Esterase Negative Urine RBC 0 SEEN Urine WBC 0 SEEN Ur Squamous Epith Cells 0-5 SEEN Urine Bacteria 0 SEEN Urine Mucus 0 SEEN Radiography Diagnostic Testing: Clinical Impression(s) from Imaging Studies Abdomen/Pelvis CT 05/31/21 14:10 IMPRESSION: Scattered peritoneal lymphadenopathy is seen. Wall thickening and luminal narrowing visualized in the terminal ileum. Correlate for inflammatory bowel disease. Postoperative changes Prominent left ovary with prominent left ovarian vein is demonstrates no significant change in comparison to the prior study. Electronically Signed: Arthur Childers MD at 15:18 EST Tel , Service support , Discharge Plan Triage Chief Complaint: Abd Pain ED Provider: Almas Eden Dx/Rx/DC Orders Clinical Impression: Abdominal pain, Nausea & vomiting, Abnormal computed tomography of cecum and terminal ileum Instructions: Abdominal Pain Prescriptions: New promethazine 25 mg tablet 25 mg PO Q6H PRN (Reason: nausea and vomiting) Qty: 14 RF: 0 No Action metoprolol succinate 50 mg tablet extended release 24 hr 50 mg PO BID RF: 0 pantoprazole 40 mg tablet,delayed release (DR/EC) 40 mg PO BID Qty: 60 RF: 0 sucralfate [Carafate] 1 gram tablet 1 g PO TID Qty: 90 RF: 2 ondansetron 8 mg tablet,disintegrating 8 mg PO Q8H PRN (Reason: nausea and vomiting) Qty: 30 RF: 1 dicyclomine 20 mg tablet 20 mg PO TID PRN (Reason: abdominal discomfort) Qty: 30 RF: 1 multivitamin 1 EACH tablet 1 ea PO DAILY RF: 0 metformin 1,000 mg tablet 1,000 mg PO BID Qty: 60 RF: 6 (DME) pen needle, diabetic [BD Ultra-Fine Jeane Pen Needle] 32 gauge x 5/32 needle See Rx Instructions .ROUTE .MEDSUPPLY Qty: 100 RF: 0 (DME) blood-glucose meter [True Metrix Glucose Meter] [facility] See Rx Instructions .ROUTE .MEDSUPPLY Qty: 1 RF: 0 (DME) True Metrix Glucose Test Strip Strip See Rx Instructions .ROUTE .MEDSUPPLY Qty: 100 RF: 8 Primary Care Provider: Kellie Dorantes Referrals: Kellie Dorantes MD [Primary Care Provider] - Friend,DO Melo [STAFF PHYSICIAN] - As soon as possible Disposition Disposition: Home, Self Care
--- NOTE | 2021-05-31 14:10 | CT_ITS ---
INDICATION: Abdominal pain EXAMINATION: CT ABDOMEN AND PELVIS WITH CONTRAST - CT Abdomen And Pelvis W/ Contrast Injection TECHNIQUE: Helically acquired images were obtained of the abdomen and pelvis following IV contrast. A radiation dose optimization technique was used for this scan. IV Contrast dosage and agent: 100 mL of ISOVUE-370 Oral contrast: None. COMPARISON: 05/20/2021. FINDINGS: LOWER CHEST: Lung bases are clear. No cardiomegaly or pericardial effusion. LIVER: Homogeneous. No focal mass. GALLBLADDER AND BILIARY TREE: Surgical clips visualized in the gallbladder fossa. PANCREAS: No focal cystic or solid mass, the distal pancreas is not visualized.. SPLEEN: Normal size without focal cystic or solid mass. ADRENAL GLANDS: No nodules. KIDNEYS AND URETERS: Normal renal size and position. No hydronephrosis. PERITONEUM: No ascites or free air. No other fluid collection. BOWEL: Postoperative changes visualized in the epigastric region. Focal wall thickening visualized in the terminal ileum with luminal narrowing seen on axial series 2 image 66 and coronal series 601 image 53. No evidence of acute appendicitis. No stomach or bowel distension. No focal inflammatory change. Scattered diverticular disease but no evidence of acute diverticulitis is is seen. LYMPH NODES: Extensive scattered lymph nodes visualized within the peritoneal cavity. VESSELS: Aorta is non-dilated. URINARY BLADDER: Unremarkable. REPRODUCTIVE ORGANS: Anteverted uterus demonstrates fluid within the endometrial cavity and heterogeneous attenuation/enhancement of the myometrium. Prominent left ovary visualized with a prominent of for details. No evidence of free fluid in the pelvis. ABDOMINAL WALL: No discrete abdominal or pelvic wall hernia. BONES: No lytic or blastic abnormality. CT/Abdomen/Pelvis W IV Cont ONLY IMPRESSION: Scattered peritoneal lymphadenopathy is seen. Wall thickening and luminal narrowing visualized in the terminal ileum. Correlate for inflammatory bowel disease. Postoperative changes Prominent left ovary with prominent left ovarian vein is demonstrates no significant change in comparison to the prior study. Electronically Signed: Arthur Childers MD at 15:18 EST Tel , Service support ,
[2021-05-31] MEDS: Ondansetron 4 MG/2 ML Vial IV (14:21)
[2021-05-31] MEDS: 0.9% Normal Saline 1,000 ML 1000 ML IV (14:21)
[2021-05-31] MEDS: Dicyclomine 20 MG/2 ML Vial IM (14:21)
[2021-05-31 14:41] LABS: Bacteria 0 SEEN /hpf (None Seen); Mucous, Urine 0 SEEN /hpf (<or=2+); Red Blood Cells-Urine 0 SEEN /hpf (0-5); White Blood Cells 0 SEEN /hpf (0-5)
[2021-05-31 14:45] LABS: Color, Urine Yellow (Yellow); Glucose, Dipstick Normal (Normal); Ketone-Dipstick 5 mg/dl (Negative); Leukocyte Esterase-Dipstick Negative /ul (Negative); Nitrite-Dipstick Negative (Negative); Occult Blood-Urine Negative /ul (Negative); Protein-Dipstick Negative (Negative); Urine Bilirubin Dipstick Negative (Negative); Urine Clarity Clear (Clear); Urine Urobilinogen Normal (Normal)
[2021-05-31 14:47] LABS: AST(SGOT) 16 U/L (15-37); Alanine Aminotransfer ALT/SGPT 24 U/L (13-56); Albumin, Serum 3.9 g/dL (3.2-5.0); Alkaline Phosphatase 93 U/L (45-117); Bilirubin, Direct 0.29 mg/dL (0.00-0.30); Globulin 3.5 g/dL (2.2-4.2); Lipase 53 U/L (73-393); Protein, Total 7.4 g/dL (6.4-8.2)
[2021-05-31 15:05] VITALS: BP 111/84; PULSE 78; RESP 14; O2SAT 98
[2021-05-31 15:11] LABS: Squamous Epithelial Cells - UA 0-5 SEEN /hpf (5-10)
[2021-05-31] MEDS: dexAMETHasone 10 MG/ML Vial IV (16:20)
[2021-05-31 16:27] VITALS: RESP 16
== END 2021-05-31 16:27 | disposition home or self-care (01) ==
PROVIDERS: Emergency Provider Emergency Medicine; PCP Internal Medicine
DX: R10.9 Unspecified abdominal pain (principal); R11.2 Nausea with vomiting, unspecified; R93.3 Abnormal findings on diagnostic imaging of other parts of digestive tract; I10 Essential (primary) hypertension; E11.9 Type 2 diabetes mellitus without complications; Z87.442 Personal history of urinary calculi; Z98.84 Bariatric surgery status; Z79.84 Long term (current) use of oral hypoglycemic drugs; Z79.899 Other long term (current) drug therapy
CPT/HCPCS: 74177; 80048; 80076; 81001; 83690; 84703; 85025; 96361; 96372; 96374; 96375; 99282; J7030; Q9967; A4216; J2405

== ENCOUNTER 2021-07-07 12:43 | Emergency (ER) | payer MEDICAID, SELFPAY ==
[2021-07-07 12:45] VITALS: BP 116/77; PULSE 92; RESP 18; TEMP 36; O2SAT 99; BMI 32.7
[2021-07-07 12:52] VITALS: BP 126/66; PULSE 76; RESP 20; O2SAT 100
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
[2021-07-07 13:40] VITALS: BP 118/61; PULSE 76; RESP 18; O2SAT 99
== END 2021-07-07 23:59 | disposition home or self-care (01) ==
PROVIDERS: Emergency Provider Student in an Organized Health Care Education/Training Program; PCP Internal Medicine; Visit Provider Student in an Organized Health Care Education/Training Program
DX: Z48.03 Encounter for change or removal of drains (principal); E11.9 Type 2 diabetes mellitus without complications; I10 Essential (primary) hypertension; E55.9 Vitamin D deficiency, unspecified; Z87.442 Personal history of urinary calculi; Z79.84 Long term (current) use of oral hypoglycemic drugs; Z79.899 Other long term (current) drug therapy
CPT/HCPCS: 99283

== ENCOUNTER 2021-08-07 15:30 | Emergency (ER) | payer MEDICAID, SELFPAY ==
[2021-08-07 15:31] VITALS: BP 119/75; PULSE 125; RESP 16; TEMP 36; O2SAT 96; BMI 31.0
--- NOTE | 2021-08-07 15:48 | CT_ITS ---
STUDY: CT ABDOMEN AND PELVIS WITH CONTRAST REASON FOR EXAM: Female, 31 years old. abd pain, vomiting, hx gastric bypass and revision RADIATION DOSAGE (If Supplied By Facility): CTDIvol = ( 16.03 ) mGy, DLP = ( 1352.62 ) mGycm TECHNIQUE: Transaxial images were obtained from the dome of the diaphragm to the symphysis pubis without oral contrast. IV 100mL Isovue-300 was administered. Sagittal and coronal images were reconstructed. Individualized dose optimization techniques were used for this CT. COMPARISON: 05/31/2021 FINDINGS: The visualized lung bases are unremarkable. The visualized portions of the heart are within normal limits. Normal liver. There are surgical clips in the gallbladder fossa consistent with a prior cholecystectomy. Normal spleen. Normal pancreas. Normal bilateral adrenal glands. Normal right kidney. Normal left kidney. Status post gastric surgery, possibly gastric bypass. Normal small intestine. Normal colon. The appendix is visualized and appears normal. Normal abdominal aorta. Normal inferior vena cava. Normal retroperitoneum. Normal urinary bladder. 3.2 cm corpus luteum cyst of the left ovary. Normal abdominal wall. Status post right hip arthroplasty which produces streak artifact and obscures the pelvis. CT/Abdomen/Pelvis W IV Cont ONLY IMPRESSION: 3.2 cm corpus luteum cyst of the left ovary. Electronically Signed: Jose Manuel Walls MD at 17:10 EST ,
--- NOTE | 2021-08-07 15:50 | EDS_ITS ---
HPI History of Present Illness Chief Complaint: Abd Pain Informant: patient and spouse/S.O. Narrative Narrative: Patient presents with nausea vomiting and diffuse abdominal pain that started about 1 AM this morning. This patient has history of what sounds like a Flakita-en-Y gastric bypass a little over a year ago done at [facility] in [place]. She had been having problems with that. She had a revision surgery done June 24. She had her drains taken out mid July. Since that time she feels as though she has generally been doing well. She is not sure what was done with the revision. She has been back to work for about a week. She stated she started with nausea vomiting and pain at all at about the same time early this morning. She has vomited multiple times. She might of seen a speck of blood once but not vomiting any volume of blood or coffee-ground materials. She has had watery diarrhea without blood. No fevers or chills. On review of systems I find out she did have pancreatitis but not sure why this happened. She does not drink alcohol. She has had cholecystectomy prior to her gastric bypass many years ago. [facility] Medical History Abdominal pain Diabetes mellitus Easy bruising Flu vaccine need Frequent headaches History of kidney stones Hypertension Kidney stone Right hip pain Seasonal allergies Vision problems Vitamin D deficiency Vitamin deficiency Home Medications metformin 1,000 mg tablet 1,000 mg PO BID #60 tab 03/21/20 [Rx Last Taken Unknown] pen needle, diabetic 32 gauge x 5/32 #100 ea 03/31/20 [Rx Last Taken Unknown] multivitamin 1 ea PO DAILY 08/07/20 [History Last Taken Unknown] True Metrix Glucose Meter #1 ea NS 05/01/21 [Rx Last Taken Unknown] True Metrix Glucose Test Strip #100 ea NS 05/01/21 [Rx Last Taken Unknown] metoprolol succinate 50 mg tablet,extended release 24 hr 50 mg PO BID 05/24/21 [History Last Taken Unknown] dicyclomine 20 mg tablet 20 mg PO TID PRN #30 tab 05/29/21 [Rx Last Taken Unknown] ondansetron 8 mg disintegrating tablet 8 mg PO Q8H PRN #30 tab 05/29/21 [Rx Last Taken Unknown] pantoprazole 40 mg tablet,delayed release 40 mg PO BID #60 tab 05/29/21 [Rx Last Taken Unknown] sucralfate 1 gram tablet 1 g PO TID #90 tab 05/29/21 [Rx Last Taken Unknown] promethazine 25 mg PO Q6H PRN #14 tab 05/31/21 [Rx Last Taken Unknown] hydrocodone-acetaminophen 1 tab PO Q6H PRN 3 Days #10 tab 08/07/21 [Rx Last Taken Unknown] Allergy/AdvReac Type Severity Reaction Status Date / Time aspirin Allergy Rash Verified 08/07/21 15:33 Penicillins Allergy Rash Verified 08/07/21 15:33 PAPER TAPE Allergy Other Uncoded 08/07/21 15:33 Family History Mother Diabetes CVA (cerebral vascular accident) Anxiety History of blood clots Depression Myocardial infarction Hypertension Thyroid disorder Father Diabetes Alcoholism Anxiety Bleeding disorder History of blood clots Depression Liver disease Grandmother , 62 Diabetes Breast cancer Myocardial infarction Grandfather , 64 Diabetes Arthritis Myocardial infarction Brother Seizures Son Seizures Surgical History History of History of renal stent History of right hip replacement (~07/2018) S/P cholecystectomy S/P dilation and curettage (~09/13/17) S/P gastric bypass s/p right hip surgery Social History Smoking Status: Never smoker alcohol intake: never substance use type: does not use caffeine: No what type of physical activity do you participate in: walking and bicycling frequency: 1-2 times per week seatbelt use: always do you feel safe at home: Yes additional social history: - [employer]- [employer] for [employer] Patient is stay at home mom [facility] ED Constitutional Constitutional ED: Denies chills or fever(s) ENT ENT ED: Denies rhinorrhea or sore throat Cardiovascular Cardiovascular: Denies chest pain or palpitations Respiratory/Chest Respiratory/Chest: Denies sputum Gastrointestinal Gastrointestinal: Reports abdominal pain, diarrhea, nausea and vomiting; Denies constipation or melena Genitourinary Genitourinary ED: Denies dysuria or urinary frequency Musculoskeletal Musculoskeletal: Denies myalgias Integumentary Denies rash Neurologic Neurologic: Denies headache(s) Endocrine Endocrinology: Denies polydipsia or polyuria Allergic/Immunologic Allergic/Immunologic ED: Denies urticaria EXAM Physical Exam Const Vital Signs: 08/07/21 15:31 08/07/21 18:21 Temperature 96.8 F L Temperature Source Temporal Pulse Rate 125 H 118 H Respiratory Rate 16 18 Blood Pressure 119/75 99/63 Blood Pressure Mean 89 75 Pulse Ox 96 100 Oxygen Delivery Method Room Air Room Air Patient is holding an emesis bag. She does look somewhat uncomfortable. Positive well nourished and well developed General Appearance ED: well developed; Negative for cyanotic or diaphoretic HEENT Reports moist mucous membranes; Denies dry mucous membranes Negative for trauma Mouth ED: No dry mucous membranes Mouth: No dry mucous membranes Eyes General Eye ED: Negative for pale conjunctiva or scleral icterus Neck no JVD Chest Wall inspection of chest normal Resp normal respiratory effort and clear to auscultation bilaterally Effort and Inspection: Negative for pain with movement Auscultation: Negative for rales, rhonchi or wheezes Cardio regular rate and regular rhythm GI normal to inspection, nondistended, normoactive bowel sounds and non-distended GI Narrative: Patient's abdomen shows healed prior ports. No erythema or infection of these. Her abdomen is not distended. Bowel sounds are somewhat quiet. There is mild diffuse tenderness but it is quite mild. No rebound or guarding. Auscultation: hypoactive bowel sounds Palpation: soft Back/Spine no CVA tenderness Extremity General Extremety ED: Negative for tenderness Neuro oriented x3 Sensorium / Orientation: alert Psych mental status grossly normal Skin no rashes or lesions noted MDM MDM MDM Narrative Medical decision making narrative: Patient's blood work shows normal CBC. Electrolytes are overall normal other than glucose being a bit up at 233. She is on Metformin for this. She also has elevated total bilirubin. She has had this before but it is a little higher now. Lipase is normal. is negative. CAT scan showed no acute process. I did discuss the case with her surgeon up at [facility] in [place]. This was Dr. Senior. She is okay with her going home. She can follow-up in the office in the next couple days. Patient does have Zofran and Phenergan at home. I will write for a few pain tablets. Patient is feeling much better at this time. I will see if I can get a CD of her images done so she can take this with her to her surgeon. Lab Data Attestation: I reviewed the patient's lab results. Labs: Laboratory Results - last 24 hr 08/07/21 08/07/21 08/07/21 15:55 15:55 15:55 WBC 7.8 RBC 4.68 Hgb 14.7 Hct 41.3 MCV 88.2 MCH 31.4 MCHC 35.6 RDW Std Deviation 48.1 H RDW Coeff of Paty 14.8 H Plt Count 318 MPV 9.3 Immature Gran % (Auto) 0.300 Neut % (Auto) 89.6 H Lymph % (Auto) 4.2 L [place] % (Auto) 5.1 Eos % (Auto) 0.5 Baso % (Auto) 0.3 Absolute Neuts (auto) 7.0 Absolute Lymphs (auto) 0.33 L Nucleated RBC % 0 Differential Comment SCANNED Sodium 137 Potassium 3.5 Chloride 106 Carbon Dioxide 22.0 Anion Gap 9 BUN 15 Creatinine 0.69 Estim Creat Clear Calc 116.99 Est GFR (MDRD) Af Amer 128 Est GFR (MDRD) Non-Af 106 BUN/Creatinine Ratio 21.6 H Glucose 233 H Calcium 9.3 Total Bilirubin 2.40 H AST 17 ALT 36 Alkaline Phosphatase 114 Total Protein 7.8 Albumin 4.0 Globulin 3.8 Albumin/Globulin Ratio 1.1 Lipase 51 L Serum , Qual NEGATIVE Radiography Diagnostic Testing: Clinical Impression(s) from Imaging Studies Abdomen/Pelvis CT 08/07/21 15:48 IMPRESSION: 3.2 cm corpus luteum cyst of the left ovary. Electronically Signed: Jose Manuel Walls MD at 17:10 EST , Discharge Plan Triage Chief Complaint: Abd Pain ED Provider: Almas Eden Dx/Rx/DC Orders Clinical Impression: Abdominal pain, Nausea vomiting and diarrhea Instructions: Abdominal Pain Prescriptions: New hydrocodone-acetaminophen 5-325 mg tablet 1 tab PO Q6H PRN (Reason: pain) 3 Days Qty: 10 RF: 0 No Action metoprolol succinate 50 mg tablet extended release 24 hr 50 mg PO BID RF: 0 pantoprazole 40 mg tablet,delayed release (DR/EC) 40 mg PO BID Qty: 60 RF: 0 sucralfate [Carafate] 1 gram tablet 1 g PO TID Qty: 90 RF: 2 ondansetron 8 mg tablet,disintegrating 8 mg PO Q8H PRN (Reason: nausea and vomiting) Qty: 30 RF: 1 dicyclomine 20 mg tablet 20 mg PO TID PRN (Reason: abdominal discomfort) Qty: 30 RF: 1 multivitamin 1 EACH tablet 1 ea PO DAILY RF: 0 promethazine 25 mg tablet 25 mg PO Q6H PRN (Reason: nausea and vomiting) Qty: 14 RF: 0 metformin 1,000 mg tablet 1,000 mg PO BID Qty: 60 RF: 6 (DME) pen needle, diabetic [BD Ultra-Fine Jeane Pen Needle] 32 gauge x 5/32 needle See Rx Instructions .ROUTE .MEDSUPPLY Qty: 100 RF: 0 (DME) blood-glucose meter [True Metrix Glucose Meter] Misc See Rx Instructions .ROUTE .MEDSUPPLY Qty: 1 RF: 0 (DME) True Metrix Glucose Test Strip Strip See Rx Instructions .ROUTE .MEDSUPPLY Qty: 100 RF: 8 Primary Care Provider: Kellie Dorantes Referrals: Kellie Dorantes MD [Primary Care Provider] - Activity Restrictions/Additional Instructions: Follow-up with Dr. Senior in the next couple days. Phone to the office to see if visit is required. Disposition Disposition: Home, Self Care
[2021-08-07] MEDS: 0.9% Normal Saline 1,000 ML 1000 ML IV (16:01)
[2021-08-07] MEDS: Ondansetron 4 MG/2 ML Vial IV (16:02)
[2021-08-07] MEDS: Morphine 4 MG/ML Syringe IV ×2 (16:02→18:17)
[2021-08-07 16:07] LABS: Absolute Lymphocyte Count 0.33 X10^3/uL (0.83-4.51); Basophil# 0.02 X10^3/uL; Basophil% 0.3 % (0-1); Eosinophil# 0.04 X10^3/uL; Eosinophils% 0.5 % (0-5); Hematocrit 41.3 % (37-47); Hemoglobin 14.7 g/dL (12.0-15.0); Lymphocyte # 0.33 X10^3/ul (0.83-4.51); Lymphocyte % 4.2 % (19-41); Mean Corp Hgb Conc 35.6 g/dL (32-36); Mean Corpuscular Hgb 31.4 pg (27.0-32.0); Mean Corpuscular Volume 88.2 fL (81-99); Mean Platelet Vol. 9.3 fl (6.2-12.0); Monocyte% 5.1 % (0-10); NRBC Flagged by Analyzer 0 % (0-5); Neutrophil # 6.98 X10^3/uL (2.7-7.7); Neutrophil % 89.6 % (47-70); POSITIVE DIFFERENTIAL YES; Platelet Count 318 K/mm3 (150-450); RBC Distribution Width CV 14.8 % (11.6-14.6); RBC Distribution Width SD 48.1 fl (35.1-43.9); Red Blood Count 4.68 M/mm3 (4.2-5.4); White Blood Count 7.8 K/mm3 (4.4-11.0)
[2021-08-07 16:13] LABS: Differential Indicated SCAN CRITERIA MET
[2021-08-07 16:21] LABS: ALB/GLOB Ratio 1.1 RATIO (0.9-2.4); AST(SGOT) 17 U/L (15-37); Alanine Aminotransfer ALT/SGPT 36 U/L (13-56); Alkaline Phosphatase 114 U/L (45-117); Anion Gap 9 (5-15); BUN 15 mg/dL (7-18); BUN/Creat Ratio 21.6 RATIO (10-20); Calcium,Total 9.3 mg/dL (8.5-10.1); Chloride 106 mmol/L (98-107); Creatinine, Serum 0.69 mg/dL (0.55-1.02); EST Glomerular Filtration Rate 106 mL/min (>60); Est Glom Filt Rate - Afr Amer 128 mL/min (>60); Estimated Creatinine Clearance 116.99 ml/min; Globulin 3.8 g/dL (2.2-4.2); Glucose 233 mg/dL (74-106); Lipase 51 U/L (73-393); Potassium 3.5 mmol/L (3.5-5.1); Protein, Total 7.8 g/dL (6.4-8.2); Sodium Level 137 mmol/L (136-145)
[2021-08-07 16:35] LABS: Internal QC Validated? YES +Cl - CLEAR BKGD; Pregnancy, Serum, hCG Quali. NEGATIVE Negative
[2021-08-07 17:21] LABS: Differential Comment SCANNED
[2021-08-07] MEDS: proMETHazine 25 MG/ML Syringe 12.5 MG IM (18:17)
[2021-08-07 18:21] VITALS: BP 99/63; PULSE 118; RESP 18; O2SAT 100
== END 2021-08-07 19:32 | disposition home or self-care (01) ==
PROVIDERS: Emergency Provider Emergency Medicine; PCP Internal Medicine; Visit Provider Emergency Medicine
DX: R10.9 Unspecified abdominal pain (principal); E11.9 Type 2 diabetes mellitus without complications; R11.2 Nausea with vomiting, unspecified; R19.7 Diarrhea, unspecified; N83.12 Corpus luteum cyst of left ovary; I10 Essential (primary) hypertension; Z87.442 Personal history of urinary calculi; Z98.84 Bariatric surgery status; Z90.49 Acquired absence of other specified parts of digestive tract; Z79.84 Long term (current) use of oral hypoglycemic drugs; Z79.899 Other long term (current) drug therapy
CPT/HCPCS: 74177; 80053; 83690; 84703; 85025; 96361; 96372; 96374; 96375; 96376; 99281; 99282; J7030; Q9967; A4216; J2405

== ENCOUNTER 2021-08-23 11:31 | Outpatient (CLI) | payer MEDICAID, SELFPAY ==
--- NOTE | 2021-08-23 11:33 | US_ITS ---
STUDY: ULTRASOUND OF THE FEMALE PELVIS - COMPLETE REASON FOR EXAM: Female, 31 years old. abnormal uterine bleedign, h/o ovarian cyst LMP: TECHNIQUE: TECHNICAL QUALITY: Adequate. COMPARISON: None. FINDINGS: The uterus is anteverted and is in a midline position. The uterus measures 8.0 x 5.9 x 3.5 cm. Normal uterine cervix. The endometrium measures 8 mm in thickness, and is . There is no demonstrated endometrial mass. There is no demonstrated myometrial mass. I.U.D. - The patient does not have an I.U.D. The right ovary is surgically absent.. The left ovary is visualized. The left ovary measures 3.6 x 3.8 x 3.7 cm. cm. There is a left ovarian cyst measuring 3 x 2.8 x 2.8 cm. There is no visualized left adnexal mass or complex lesion. There is normal arterial and normal venous vascularity. Polycystic ovary disease: No. US/Pelvic (Non ) IMPRESSION: The right ovary is surgically absent. The left ovary contains a cyst measuring 3 cm. Electronically Signed: Fab Orozco MD at 7:01 EDT ,
--- NOTE | 2021-08-23 11:33 | US_ITS ---
STUDY: ULTRASOUND OF THE FEMALE PELVIS - COMPLETE REASON FOR EXAM: Female, 31 years old. abnormal uterine bleedign, h/o ovarian cyst LMP: TECHNIQUE: TECHNICAL QUALITY: Adequate. COMPARISON: None. FINDINGS: The uterus is anteverted and is in a midline position. The uterus measures 8.0 x 5.9 x 3.5 cm. Normal uterine cervix. The endometrium measures 8 mm in thickness, and is . There is no demonstrated endometrial mass. There is no demonstrated myometrial mass. I.U.D. - The patient does not have an I.U.D. The right ovary is surgically absent.. The left ovary is visualized. The left ovary measures 3.6 x 3.8 x 3.7 cm. cm. There is a left ovarian cyst measuring 3 x 2.8 x 2.8 cm. There is no visualized left adnexal mass or complex lesion. There is normal arterial and normal venous vascularity. Polycystic ovary disease: No. US/Transvaginal Non- IMPRESSION: The right ovary is surgically absent. The left ovary contains a cyst measuring 3 cm. Electronically Signed: Fab Orozco MD at 7:01 EDT ,
== END 2021-08-23 23:59 | disposition home or self-care (01) ==
LOC: US 11:32
PROVIDERS: PCP Internal Medicine; Referring Provider Obstetrics & Gynecology; Visit Provider Obstetrics & Gynecology
DX: N93.9 Abnormal uterine and vaginal bleeding, unspecified (principal); R10.9 Unspecified abdominal pain
CPT/HCPCS: 76830; 76856

== ENCOUNTER → 2021-10-05 | Outpatient (CLI) | payer MEDICAID, SELFPAY ==
--- NOTE | 2021-10-05 08:04 | RAD_ITS ---
PROCEDURE: ESOPHAGRAM - UPPER GASTROINTESTINAL STUDY DATE OF EXAMINATION: 10/05/2021. INDICATION: Female, 31 years old. Right lower quadrant pain. Constipation. Prior gastric bypass surgery. PHYSICIAN: Jamison Panchal M.D. FLUOROSCOPY TIME (if supplied): (0:09) minutes/seconds. 25 images were obtained. TECHNIQUE: The esophagus is unremarkable. No evidence of obstruction. No evidence of gastroesophageal reflux. The patient is status post subtotal gastrectomy for gastric bypass surgery. There is no evidence of a obstruction. RAD/Upper GI/w Small Bowel IMPRESSION: Status post subtotal gastrectomy for gastric bypass surgery. No evidence of gastroesophageal reflux. Electronically Signed: Jamison Panchal MD at 12:57 EDT ,
== END | disposition home or self-care (01) ==
PROVIDERS: PCP Internal Medicine
DX: R11.0 Nausea (principal); R10.9 Unspecified abdominal pain; Z98.84 Bariatric surgery status
CPT/HCPCS: 74246; 74248

== ENCOUNTER → 2021-12-19 | Outpatient (CLI) | payer MEDICAID, SELFPAY ==
[2021-12-19 12:27] LABS: Hepatitis B Surface Antibody Reactive; Rubella IgG Reactive (Nonreactive)
[2021-12-21 15:06] LABS: Mumps Antibody,IgG 55.9 AU/mL (Immune >10.9); Rubeola IgG Ab 94.3 AU/mL (Immune >16.4); V-Zoster IgG (Immunity) 1014 index (Immune >165)
== END | disposition home or self-care (01) ==
LOC: BIMLAB 10:24
PROVIDERS: PCP Internal Medicine; Visit Provider Physician Assistant
DX: Z02.0 Encounter for examination for admission to educational institution (principal)
CPT/HCPCS: 36415; 86706; 86735; 86762; 86765; 86787

== ENCOUNTER 2022-01-09 20:29 | Emergency (ER) | payer MEDICAID, SELFPAY ==
[2022-01-09 20:33] VITALS: BP 127/78; PULSE 116; RESP 20; TEMP 36.9; O2SAT 99; BMI 35.0
[2022-01-09 20:36] VITALS: BP 127/78; PULSE 119; RESP 20; TEMP 36.9; O2SAT 99
--- NOTE | 2022-01-09 20:56 | CT_ITS ---
STUDY: CT ABDOMEN AND PELVIS WITHOUT CONTRAST REASON FOR EXAM: Female, 31 years old. Pain RADIATION DOSAGE (If Supplied By Facility): CTDIvol = ( 14.70 ) mGy, DLP = ( 800.88 ) mGycm TECHNIQUE: Transaxial images were obtained from the dome of the diaphragm to the symphysis pubis without oral contrast, and without intravenous contrast. Sagittal and coronal images were reconstructed. Individualized dose optimization techniques were used for this CT. COMPARISON: CT abdomen and pelvis 08/07/2021 FINDINGS: LOWER CHEST: Normal. LIVER: Normal. GALLBLADDER/BILE DUCTS: Status post cholecystectomy. Biliary dilatation, similar compared to the prior, may be normal in a postcholecystectomy patient. PANCREAS: Atrophic changes in the pancreatic tail, similar compared to the prior.. SPLEEN: Splenomegaly with spleen measuring 14.7 cm. ADRENAL GLANDS: Normal. KIDNEYS/URETERS/BLADDER: Punctate nonobstructive bilateral nephrolithiasis. No hydroureteronephrosis. RETROPERITONEUM/AORTA: Normal. BOWEL/MESENTERY: Status post Flakita-en-Y gastric bypass. No bowel dilatation or bowel wall thickening.. APPENDIX: Identified and normal. PERITONEUM: Trace free fluid in the pelvis. REPRODUCTIVE ORGANS: Normal. BONES/SOFT TISSUES: Status post right hip arthroplasty with streak artifact, limiting evaluation. No acute osseous abnormality.. OTHER: None. CT/Abdomen/Pelvis without Cont IMPRESSION: 1. No bowel dilatation or bowel wall thickening. 2. Trace free fluid in the pelvis. 3. No hydroureteronephrosis. Nonobstructive bilateral nephrolithiasis. 4. Nonspecific splenomegaly. 5. Biliary dilatation, similar compared to the prior, may be normal in a postcholecystectomy patient. Electronically Signed: Ge Bhat MD at 22:21 EDT ,
--- NOTE | 2022-01-09 20:57 | ED.VIS.GI ---
HPI HPI - GI History of Present Illness Chief Complaint: Flank Pain Detail of Chief Complaint: Right flank pain Informant: patient Abdominal Pain/Flank Pain Onset: Today and Yesterday Context: Gradual Onset Timing: Continuous Quality: Aching Location: Right Flank Current Severity: Moderate Maximum Severity: Moderate Worsened by: Nothing Relieved by: Nothing Nausea/Vomiting/Emesis GI Symptom: Positive for Nausea and Vomiting Onset: Today Severity: Mild Diarrhea/Melena/Hematochezia GI Symptom: Negative for Diarrhea, Melena or Hematochezia Associated Symptoms Associated Symptoms: Negative for Dysuria, Frequency, Hematuria or Urgency Narrative Narrative: 31-year-old female history of diabetes, prior kidney stones with prior stents and gastric bypass. States that she developed right flank pain around 2 PM yesterday. Was seen in [place] emergency department today had a CAT scan and labs was told she had a kidney stone but she does not know the size of any of her test results. States today she developed nausea and vomiting. Fever and chills with fever as high as 102.3. Prior similar symptoms: Yes Recent Illness/Hospitalization: No PFSH PFSH Medical History Abdominal pain Diabetes mellitus Easy bruising Flu vaccine need Frequent headaches History of kidney stones Hypertension Kidney stone Right hip pain Seasonal allergies Vision problems Vitamin D deficiency Vitamin deficiency Home Medications metformin 1,000 mg tablet 1,000 mg PO BID diabetes #60 tabs 03/21/20 [Rx Last Taken Unknown] cephalexin 500 mg capsule 500 mg PO Q6 7 days #28 caps 01/09/22 [Rx Last Taken Unknown] metoprolol tartrate 50 mg tablet 50 mg PO BID 01/09/22 [History Last Taken Unknown] Allergy/AdvReac Type Severity Reaction Status Date / Time aspirin Allergy Rash Verified 12/19/21 09:57 Penicillins Allergy Rash Verified 12/19/21 09:57 PAPER TAPE Allergy Other Uncoded 12/19/21 09:57 Family History Mother Diabetes CVA (cerebral vascular accident) Anxiety History of blood clots Depression Myocardial infarction Hypertension Thyroid disorder Father Diabetes Alcoholism Anxiety Bleeding disorder History of blood clots Depression Liver disease Grandmother , 62 Diabetes Breast cancer Myocardial infarction Grandfather , 64 Diabetes Arthritis Myocardial infarction Brother Seizures Son Seizures Surgical History History of History of renal stent History of right hip replacement (~07/2018) S/P cholecystectomy S/P dilation and curettage (~09/13/17) S/P gastric bypass s/p right hip surgery Social History Smoking Status: Never smoker alcohol intake: never substance use type: does not use caffeine: No what type of physical activity do you participate in: walking and bicycling frequency: 1-2 times per week seatbelt use: always do you feel safe at home: Yes additional social history: - [employer] 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 ROS ED ROS Narrative Right flank pain. Fever. Nausea vomiting. Review of Systems ROS Unobtainable: Denies due to encephalopathy Constitutional Constitutional ED: Reports fever(s); Denies chills ENT ENT ED: Denies ear pain Cardiovascular Cardiovascular: Denies chest pain Respiratory/Chest Respiratory/Chest: Denies cough or dyspnea Gastrointestinal Gastrointestinal: Reports abdominal pain and nausea Genitourinary Genitourinary ED: Denies dysuria or hematuria Musculoskeletal Musculoskeletal: Denies arthralgias Integumentary Denies abscess Neurologic Neurologic: Denies headache(s) Psychiatric Psychiatric: Denies anxiety Endocrine Endocrinology: Denies polydipsia Hematologic/Lymphatic Hematologic/Lymphatic: Denies easy bleeding Allergic/Immunologic Allergic/Immunologic ED: Denies mouth swelling EXAM Physical Exam Narrative Exam Narrative: 23-year-old female vital signs stable. Afebrile. She looks like she feels ill. Does not look septic or toxic. H EENT exam unremarkable. Neck nontender no lymphadenopathy. Lungs clear to auscultation bilaterally. Heart tachycardic rate about 150 no murmur. Abdomen soft nontender. Moving all 4 extremities. Back nontender. Neurologically she is awake alert with no focal motor deficits. Const Vital Signs: 01/09/22 20:33 01/09/22 20:36 Temperature 98.5 F 98.5 F Temperature Source Temporal Temporal Pulse Rate 116 H 119 H Respiratory Rate 20 H 20 H Blood Pressure 127/78 H 127/78 H Blood Pressure Mean 94 94 Pulse Ox 99 99 Oxygen Delivery Method Room Air Positive well nourished, well developed and obese; Negative for cachectic, contractures or unkempt General Appearance ED: well developed; Negative for unkempt, cachectic, contractures or pallor Nutritional Appearance: obese; Negative for cachectic HEENT Reports moist mucous membranes normocephalic and atraumatic; Negative for trauma or tenderness Eyes PERRL and EOMs intact bilaterally General Eye ED: Negative for pale conjunctiva Neck no lymphadenopathy, supple and no JVD General: Negative for tenderness Carotids: Negative for other Lymph Lymphatic: Negative for other Resp normal respiratory effort and clear to auscultation bilaterally Effort and Inspection: Negative for respiratory distress, retractions or pain with movement Auscultation: Negative for rales, rhonchi or wheezes Cardio regular rhythm, S1 normal heart sound, S2 normal heart sound and no murmurs; Negative for regular rate Rate: tachycardic Rhythm: Negative for abnormal rhythm GI non-tender, non-distended and no masses Inspection: Negative for abdominal distention Auscultation: normoactive bowel sounds Palpation: soft; Negative for tender, guarding, rigid, hepatomegaly, splenomegaly, hernia, mass, pulsatile mass or rebound tenderness present Back/Spine no CVA tenderness General Back: Negative for CVA tenderness Cervical Spine: Negative for cervical spine tenderness Thoracic Spine / Upper Back: Negative for thoracic spinal tenderness Lumbar Spine / Lower Back: Negative for lumbar spinal tenderness Coccyx: Negative for other Extremity full ROM General Extremety ED: Negative for edema or tenderness General Extremity: Negative for edema Neuro CN's II-XII intact bilaterally, moves all extremities and no sensory deficits noted Sensorium / Orientation: alert, oriented to person, oriented to place and oriented to time; Negative for orientation impaired, confused, lethargic or stuporous Motor Exam: strength 5/5 throughout Psych mental status grossly normal Appearance: Negative for unkempt Attitude: No agitated Mood & Affect: Negative for depressed, anxious or tearful Skin no wounds General Skin Exam: Negative for jaundice or pallor Lesions: no lesions Rashes: no rashes Trauma: Negative for abrasion Nails: Negative for discolored MDM MDM MDM Narrative Medical decision making narrative: 31-year-old diabetic with known kidney stones right flank pain with fever. CAT scan labs are pending. We will see if and get the CAT scan and lab results from the outside ER she was seen at earlier today. Patient be treated with IV fluids, Zofran, Toradol and morphine. Repeat exam she is doing well at 11:17 PM. We went over her test results. The CAT scan here and evaluation did not show an acute stone but stone in her kidneys. I suspect her symptoms are more from a UTI than acute kidney stone. She be placed on Keflex. A urine culture be sent. She will follow-up with her primary care physician. Return if worse. She has Toradol at home for pain and Zofran. Lab Data Attestation: I reviewed the patient's lab results. Lab results narrative: CBC shows a white count of 5. H&H 11.8 and 36. Platelets 270. Electrolytes sodium 133. Gap of 8. Normal BUN and creatinine 11 and 0.8. Liver enzymes unremarkable. Glucose of 206. Urine shows positive nitrites with 5-10 white cells and 4+ bacteria. Consistent with a UTI. Culture will be sent. CAT scan shows renal stones but no acute ureteral calculi. Read by the radiologist. Reviewed by me. Labs: Laboratory Results - last 24 hr 01/09/22 01/09/22 01/09/22 21:10 21:28 21:45 WBC 5.3 RBC 4.07 L Hgb 11.8 L Hct 36.0 L MCV 88.5 MCH 29.0 MCHC 32.8 RDW Std Deviation 42.6 RDW Coeff of Paty 13.2 Plt Count 270 MPV 9.3 Immature Gran % (Auto) 0.400 Neut % (Auto) 81.6 H Lymph % (Auto) 9.7 L [place] % (Auto) 8.1 Eos % (Auto) 0.0 Baso % (Auto) 0.2 Absolute Neuts (auto) 4.3 Absolute Lymphs (auto) 0.51 L Nucleated RBC % 0 Differential Comment SEE COMMENT Platelet Estimate ADEQUATE RBC Morphology N CHROM Anisocytosis RARE Sodium 133 L Potassium 3.5 Chloride 102 Carbon Dioxide 23.0 Anion Gap 8 BUN 11 Creatinine 0.84 Estim Creat Clear Calc 96.10 Est GFR (MDRD) Af Amer 102 Est GFR (MDRD) Non-Af 84 BUN/Creatinine Ratio 13.0 Glucose 206 H Calcium 9.1 Total Bilirubin 2.00 H AST 25 ALT 30 Alkaline Phosphatase 112 Total Protein 7.7 Albumin 3.9 Globulin 3.8 Albumin/Globulin Ratio 1.0 Urine Color Yellow Urine Clarity Cloudy Urine pH 6.0 Ur Specific Brush 1.020 Urine Protein 100 H Urine Glucose (UA) Normal Urine Ketones 5 H Urine Occult Blood 25 H Urine Nitrite Positive H Urine Bilirubin Negative Urine Urobilinogen 1 H Ur Leukocyte Esterase 100 H Urine RBC 0-5 SEEN Urine WBC 5-10 SEEN Ur Squamous Epith Cells 5-10 SEEN Urine Bacteria 4+ Urine Mucus 1+ Urine Yeast 1+ Radiography Diagnostic Testing: Clinical Impression(s) from Imaging Studies Abdomen/Pelvis CT 01/09/22 20:56 IMPRESSION: 1. No bowel dilatation or bowel wall thickening. 2. Trace free fluid in the pelvis. 3. No hydroureteronephrosis. Nonobstructive bilateral nephrolithiasis. 4. Nonspecific splenomegaly. 5. Biliary dilatation, similar compared to the prior, may be normal in a postcholecystectomy patient. Electronically Signed: Ge Bhat MD at 22:21 EDT Reading Location ID and State: [address] [place] [address] Tel , Service support , Discharge Plan Triage Chief Complaint: Flank Pain ED Provider: Severo Venegas Dx/Rx/DC Orders Clinical Impression: Urinary tract infection, History of diabetes mellitus, History of kidney stones Instructions: Urinary Tract Infections in Women Prescriptions: New cephalexin 500 mg capsule 500 mg PO Q6 7 Days Qty: 28 0RF No Action metoprolol tartrate 50 mg tablet 50 mg PO BID Label Comments: Take 1 tablet by mouth once a day metformin 1,000 mg tablet 1,000 mg PO BID Qty: 60 6RF Primary Care Provider: Kellie Dorantes Referrals: Kellie Dorantes MD [Primary Care Provider] - 3-5 Days if not improving Activity Restrictions/Additional Instructions: Appears to have a urinary tract infection and not an acute kidney stone. Urine culture will be sent. Tylenol and Motrin for pain or you may use the Toradol but do not use both Toradol and Motrin together. Zofran as needed for nausea. The antibiotic Keflex 1 pill 4 times a day for 1 week for the urinary tract infection. Follow-up with your doctor if not improving return if worse. Disposition Disposition: Home, Self Care
[2022-01-09 21:38] LABS: Absolute Lymphocyte Count 0.51 X10^3/uL (0.83-4.51); Absolute Neutrophil Count 4.3 X10^3/uL (2.0-7.7); Basophil# 0.01 X10^3/uL; Basophil% 0.2 % (0-1); Hemoglobin 11.8 g/dL (12.0-15.0); Lymphocyte # 0.51 X10^3/ul (0.83-4.51); Lymphocyte % 9.7 % (19-41); Mean Corp Hgb Conc 32.8 g/dL (32-36); Mean Corpuscular Volume 88.5 fL (81-99); Mean Platelet Vol. 9.3 fl (6.2-12.0); Monocyte# 0.43 X10^3/uL; Monocyte% 8.1 % (0-10); NRBC Flagged by Analyzer 0 % (0-5); Neutrophil # 4.31 X10^3/uL (2.7-7.7); Neutrophil % 81.6 % (47-70); POSITIVE DIFFERENTIAL YES; Platelet Count 270 K/mm3 (150-450); RBC Distribution Width CV 13.2 % (11.6-14.6); RBC Distribution Width SD 42.6 fl (35.1-43.9); Red Blood Count 4.07 M/mm3 (4.2-5.4); White Blood Count 5.3 K/mm3 (4.4-11.0)
[2022-01-09] MEDS: 0.9% Normal Saline 1,000 ML 1000 ML IV (21:49)
[2022-01-09] MEDS: Ondansetron 4 MG/2 ML Vial IV (21:49)
[2022-01-09] MEDS: Morphine 4 MG/ML Syringe 6 MG IV (21:49)
[2022-01-09] MEDS: Ketorolac 30 MG/ML Syringe IV (21:49)
[2022-01-09 21:57] LABS: AST(SGOT) 25 U/L (15-37); Alanine Aminotransfer ALT/SGPT 30 U/L (13-56); Albumin, Serum 3.9 g/dL (3.2-5.0); Alkaline Phosphatase 112 U/L (45-117); Anion Gap 8 (5-15); BUN 11 mg/dL (7-18); Calcium,Total 9.1 mg/dL (8.5-10.1); Chloride 102 mmol/L (98-107); Creatinine, Serum 0.84 mg/dL (0.55-1.02); EST Glomerular Filtration Rate 84 mL/min (>60); Est Glom Filt Rate - Afr Amer 102 mL/min (>60); Globulin 3.8 g/dL (2.2-4.2); Glucose 206 mg/dL (74-106); Potassium 3.5 mmol/L (3.5-5.1); Protein, Total 7.7 g/dL (6.4-8.2); Sodium Level 133 mmol/L (136-145)
[2022-01-09 22:00] LABS: Color, Urine Yellow (Yellow); Glucose, Dipstick Normal (Normal); Ketone-Dipstick 5 mg/dl (Negative); Leukocyte Esterase-Dipstick 100 /ul (Negative); Nitrite-Dipstick Positive (Negative); Occult Blood-Urine 25 /ul (Negative); Protein-Dipstick 100 mg/dl (Negative); Urine Bilirubin Dipstick Negative (Negative); Urine Clarity Cloudy (Clear); Urine Urobilinogen 1 mg/dl (Normal)
[2022-01-09 22:07] LABS: Differential Indicated SCAN CRITERIA MET
[2022-01-09 22:09] LABS: Platelet Estimate ADEQUATE (ADEQ)
[2022-01-09 22:10] LABS: Anisocytosis RARE; Red Cell Morphology N CHROM NORMAL (NORM C&C)
[2022-01-09 22:17] LABS: White Blood Cells 5-10 SEEN /hpf (0-5)
[2022-01-09 22:18] LABS: Bacteria 4+ /hpf (None Seen); Mucous, Urine 1+ /hpf (<or=2+); Red Blood Cells-Urine 0-5 SEEN /hpf (0-5); Squamous Epithelial Cells - UA 5-10 SEEN /hpf (5-10); Yeast-Urine 1+ /hpf (None Seen)
[2022-01-09] MEDS: Cephalexin 250 MG Capsule 500 MG PO (23:31)
[2022-01-09 23:36] VITALS: BP 97/55; PULSE 102; RESP 18; O2SAT 100
== END 2022-01-09 23:37 | disposition home or self-care (01) ==
PROVIDERS: Emergency Provider Emergency Medicine; PCP Internal Medicine; Visit Provider Emergency Medicine
DX: N39.0 Urinary tract infection, site not specified (principal); E11.9 Type 2 diabetes mellitus without complications; Z87.442 Personal history of urinary calculi; I10 Essential (primary) hypertension; Z79.84 Long term (current) use of oral hypoglycemic drugs; Z79.899 Other long term (current) drug therapy; Z98.84 Bariatric surgery status; E66.9 Obesity, unspecified; Z68.35 Body mass index [BMI] 35.0-35.9, adult
CPT/HCPCS: 74176; 80053; 81001; 85025; 87086; 87088; 87186; 96361; 96374; 96375; 99285; J7030; A4216; J2405

== ENCOUNTER → 2022-02-07 | Outpatient (CLI) | payer MEDICAID, SELFPAY ==
[2022-02-07 12:16] LABS: BUN 14 mg/dL (7-18); Creatinine, Serum 0.85 mg/dL (0.55-1.02); Glucose 159 mg/dL (74-106)
[2022-02-07 12:17] LABS: Anion Gap 7 (5-15); BUN/Creat Ratio 16.5 RATIO (10-20); Chloride 103 mmol/L (98-107); EST Glomerular Filtration Rate 84 mL/min (>60); Est Glom Filt Rate - Afr Amer 101 mL/min (>60); Magnesium 1.9 mg/dL (1.6-2.6); Potassium 4.1 mmol/L (3.5-5.1); Sodium Level 137 mmol/L (136-145); Thyroid Stim Hormone (TSH) 0.67 uIU/mL (0.358-3.74)
== END | disposition home or self-care (01) ==
LOC: LAB 10:48
PROVIDERS: PCP Internal Medicine; Visit Provider Nurse Practitioner Gerontology
DX: R00.2 Palpitations (principal)
CPT/HCPCS: 36415; 80048; 83735; 84443

== ENCOUNTER → 2022-05-21 | Outpatient (CLI) | payer MEDICAID, SELFPAY ==
[2022-05-21 11:48] LABS: Absolute Lymphocyte Count 2.11 X10^3/uL (0.83-4.51); Basophil# 0.03 X10^3/uL; Basophil% 0.4 % (0-1); Eosinophil# 0.08 X10^3/uL; Eosinophils% 1.2 % (0-5); Hematocrit 38.1 % (37-47); Hemoglobin 12.2 g/dL (12.0-15.0); Lymphocyte # 2.11 X10^3/ul (0.83-4.51); Lymphocyte % 31.3 % (19-41); Mean Corpuscular Hgb 28.2 pg (27.0-32.0); Mean Platelet Vol. 9.4 fl (6.2-12.0); Monocyte# 0.51 X10^3/uL; Monocyte% 7.6 % (0-10); NRBC Flagged by Analyzer 0 % (0-5); Neutrophil # 3.99 X10^3/uL (2.7-7.7); Neutrophil % 59.1 % (47-70); Platelet Count 397 K/mm3 (150-450); RBC Distribution Width CV 13.9 % (11.6-14.6); RBC Distribution Width SD 44.9 fl (35.1-43.9); Red Blood Count 4.33 M/mm3 (4.2-5.4); White Blood Count 6.8 K/mm3 (4.4-11.0)
[2022-05-21 12:17] LABS: Vitamin D,25 Hydroxy 13.3 ng/mL
[2022-05-21 12:21] LABS: ALB/GLOB Ratio 1.1 RATIO (0.9-2.4); AST(SGOT) 10 U/L (15-37); Alanine Aminotransfer ALT/SGPT 21 U/L (13-56); Albumin, Serum 3.9 g/dL (3.2-5.0); Alkaline Phosphatase 87 U/L (45-117); Anion Gap 8 (5-15); BUN 13 mg/dL (7-18); BUN/Creat Ratio 23.6 RATIO (10-20); Chloride 104 mmol/L (98-107); Creatinine, Serum 0.55 mg/dL (0.55-1.02); EST Glomerular Filtration Rate 138 mL/min (>60); Est Glom Filt Rate - Afr Amer 166 mL/min (>60); Globulin 3.5 g/dL (2.2-4.2); Glucose 100 mg/dL (74-106); Potassium 3.7 mmol/L (3.5-5.1); Protein, Total 7.4 g/dL (6.4-8.2); Sodium Level 138 mmol/L (136-145); Thyroid Stim Hormone (TSH) 0.52 uIU/mL (0.358-3.74)
== END | disposition home or self-care (01) ==
LOC: BIMLAB 10:10
PROVIDERS: PCP Internal Medicine; Visit Provider Physician Assistant
DX: Z13.29 Encounter for screening for other suspected endocrine disorder (principal); E20.9 Hypoparathyroidism, unspecified; E11.9 Type 2 diabetes mellitus without complications; R53.83 Other fatigue; D64.9 Anemia, unspecified
CPT/HCPCS: 36415; 80053; 82306; 84443; 85025

== ENCOUNTER → 2022-07-04 | Outpatient (CLI) | payer MEDICAID, SELFPAY ==
--- NOTE | 2022-07-04 11:52 | MRI_ITS ---
EXAM: MR LEFT LOWER EXTREMITY WITH INTRAVENOUS CONTRAST, HIP CLINICAL INDICATION: LEFT HIP PAIN -- ARTHROGRAM TECHNIQUE: Multiplanar and multisequence MR images of the left hip with intravenous contrast. This report was created using [employer] report [employer] technology. CONTRAST: intra articulat arthrogram solution 10ml COMPARISON: None. FINDINGS: TENDONS: FLEXORS: Unremarkable. Intact. EXTENSORS/HAMSTRING: Unremarkable. Intact. ABDUCTORS: Unremarkable. Intact. ADDUCTORS: Unremarkable. Intact. ROTATORS: Unremarkable. Intact. MUSCLES: Unremarkable. Normal bulk and signal. FLUID: Unremarkable. No joint effusion. No trochanteric bursitis. LABRUM: Posterior superior to superior labral tearing manifested as deep undercutting of the chondral labral junction by gadolinium solution. CARTILAGE: See above. BONES/JOINTS: Joint is adequately distended with intra-articular gadolinium contrast was which was injected by another radiologist. No femoral neck fracture. No avascular necrosis of the femoral head. No sacral insufficiency fracture. No bone marrow signal alterations. OTHER SOFT TISSUES: Unremarkable. MRI/Lower Ext/Jt Only/W Contrast IMPRESSION: Posterior superior to superior labral tearing manifested as deep undercutting of the chondral labral junction by gadolinium solution. Electronically Signed: Pablo Wallis MD at 1:18 EST ,
--- NOTE | 2022-07-04 12:45 | RAD_ITS ---
CLINICAL HISTORY: Female, 32 years old. Left hip pain. PROCEDURE: ARTHROGRAM - LEFT HIP. CONSENT: The procedure as well as the benefits and possible complications including infection and bleeding were explained to the patient. Informed consent was obtained. FLUOROSCOPY TIME (if supplied): (42 seconds) minutes/seconds Injection Information: 10 cc of dilute MRI contrast. Number of images obtained: 1 TECHNIQUE: (All elements of maximal sterile barrier technique followed, including US elements as applicable) The patient was in the supine position. Skin was prepped and draped in the usual sterile fashion. Following local anesthetic application and under direct fluoroscopic guidance, a 22-gauge spinal needle was placed into the hip joint. 2 cc of ISOVUE 300 was injected for confirmation. Following this, 10 cc of dilute MRI contrast was injected. The patient tolerated the procedure well. RAD/Arthrogram Hip w/ MRI IMPRESSION: Successful left hip arthrogram for MRI examination. The patient tolerated the procedure well. Electronically Signed: Jamison Panchal MD at 13:38 EST ,
[2022-07-04] MEDS: Lidocaine 2% (5ml sdv) 5 ML VIAL.MPF INFILT (12:48)
[2022-07-04] MEDS: Gadoterate Meglumine Diluted 10 ML, Iopamidol 5 ML, Lidocaine 1% (20 ml mdv) 5 ML, Epin... INTRAARTIC (12:49)
[2022-07-04] MEDS: Iopamidol 10 ML in Syringe 1 EACH 600 ML INTRAARTIC (12:49)
== END | disposition home or self-care (01) ==
LOC: RAD 11:21
PROVIDERS: PCP Internal Medicine; Referring Provider Physician Assistant; Visit Provider Physician Assistant
DX: M25.552 Pain in left hip (principal)
CPT/HCPCS: 27093; 73722; 77002; Q9967

== ENCOUNTER → 2022-07-27 | Outpatient (CLI) | payer MEDICAID, SELFPAY ==
--- NOTE | 2022-07-27 08:38 | ECHOD_ITS ---
Reason For Study: Arrhythmia Procedure This was a 2D Doppler, Color Flow transthoracic echocardiogram. Exam performed in department. Left Ventricle Normal left ventricle. The left ventricular ejection fraction is 60 %. Normal diastololic function. Right Ventricle Normal right ventricle. Atria Echo density vs artifact noted in left atrium. Recommend cardiac MRI for further evaluation. Bubble contrast study is negative for PFO/ASD. Mitral Valve The mitral valve is structurally normal. No prolapse or stenosis seen. Tricuspid Valve Trivial tricuspid valve insufficiency. Normal pulmonary artery pressure. Aortic Valve Normal aortic valve. Pulmonic Valve Trivial pulmonic valve insufficiency. Great Vessels Normal sized aortic root. Pericardium/Pleural No pericardial effusion. Medication 20 gauge I.V. with prn adaptor inserted into left arm. Performed a rapid injection of agitated mix of 9 cc saline and 1cc air to assess for atrial septal defect. MMode/2D Measurements & Calculations LVIDd: 4.7 cm IVSd: 0.94 cm Ao root diam: 2.6 cm LVIDs: 2.8 cm LVPWd: 0.59 cm LA dimension: 3.9 cm RVDd: 3.3 cm FS: 39.8 % LAV(MOD-bp): 43.0 ml LA A4 area: 16.8 cm2 RA A4 area: 14.7 cm2 LAV(MOD-bp) Indexed: 21.0 ml/m2 LAV(MOD-sp2): 37.3 ml LAV(MOD-sp4): 35.9 ml Time Measurements MV dec time: 0.13 sec Doppler Measurements & Calculations MV E max remington: 90.5 cm/sec Lat Peak E' Remington: 18.1 cm/sec Med Peak E' Remington: 17.2 cm/sec MV A max remington: 46.4 cm/sec E/E' lat: 5.0 E/E' med: 5.3 MV E/A: 2.0 MV V2 max: 81.1 cm/sec MV dec slope: 678.9 cm/sec2 Ao V2 max: 144.6 cm/sec MV max P.6 mmHg Ao max P.4 mmHg MV V2 mean: 38.9 cm/sec MV mean P.75 mmHg MV V2 VTI: 22.8 cm LV V1 max: 122.9 cm/sec PA V2 max: 109.7 cm/sec TR max remington: 219.2 cm/sec LV V1 max P.1 mmHg PA V2 mean: 71.2 cm/sec TR max P.2 mmHg ECHO/Echo Complete Interpretation Summary The left ventricular ejection fraction is 60 %. Echo density vs artifact noted in left atrium. Recommend cardiac MRI for furthe r evaluation. Ordering Physician: Justino Menendez Referring Physician: Kellie Dorantes Performed By: Josh Francisco RCS
== END | disposition home or self-care (01) ==
LOC: CVS 08:34
PROVIDERS: PCP Internal Medicine; Referring Provider Internal Medicine Cardiovascular Disease; Visit Provider Internal Medicine Cardiovascular Disease
DX: R00.0 Tachycardia, unspecified (principal)
CPT/HCPCS: 93306; A4216

== ENCOUNTER 2022-08-23 16:35 | Emergency (ER) | payer MEDICAID, SELFPAY ==
[2022-08-23 16:35] VITALS: BP 138/75; PULSE 98; RESP 16; TEMP 36.7; O2SAT 99; BMI 33.6
--- NOTE | 2022-08-23 17:23 | CT_ITS ---
INDICATION: Abdominal pain with vomiting for 3 days. History of gastric bypass surgery and cholecystectomy. History of left ovarian cyst and diabetes. EXAMINATION: CT ABDOMEN AND PELVIS WITH CONTRAST - CT Abdomen And Pelvis W/ Contrast Injection TECHNIQUE: Helically acquired images were obtained of the abdomen and pelvis following IV contrast. A radiation dose optimization technique was used for this scan. IV Contrast dosage and agent: 100 mL of Isovue 3 7 Oral contrast: With COMPARISON: January 09, 2022 FINDINGS: LOWER CHEST: Lung bases are clear. No cardiomegaly or pericardial effusion. LIVER: The liver is large but without focal mass. GALLBLADDER AND BILIARY TREE: Status post cholecystectomy. Mild subsequent intrauterine extrahepatic biliary ductal dilatation without filling defect. PANCREAS: The pancreatic head appears normal. The body and tail are not visualized SPLEEN: Splenomegaly. ADRENAL GLANDS: No nodules. KIDNEYS AND URETERS: Normal right kidney. There is a 3 mm nonobstructing left lower pole renal calculus. Normal visualized ureters. PERITONEUM: No ascites or free air. No other fluid collection. BOWEL: Evidence of gastric bypass surgery. Grossly normal small bowel. Normal colon. Normal appendix. LYMPH NODES: No enlarged mesenteric or retroperitoneal lymph nodes. VESSELS: Normal abdominal aorta. Normal IVC. URINARY BLADDER: Unremarkable. REPRODUCTIVE ORGANS: Normal uterus. There is a 4.1 x 3.3 x 3.6 cm left ovarian cyst. Normal right adnexa. ABDOMINAL WALL: No discrete abdominal or pelvic wall hernia. BONES: Degenerative changes of the lumbar spine. Stable right hip replacement. CT/Abdomen/Pelvis WITH Contrast IMPRESSION: 1. Large left ovarian cyst. 2. Hepatosplenomegaly without mass. 3. Nonvisualization of body and tail of the pancreas. This is similar to previous study. Atrophy versus resection. 4. Gastric bypass surgery without evidence of acute abnormality. 5. No major interval change. Electronically Signed: Claude Gómez DO at 20:15 EDT Reading Location ID and State: [address] [place] [address] Tel [phone], Service support ,
--- NOTE | 2022-08-23 17:29 | ED.VIS.GI ---
HPI HPI - GI History of Present Illness Chief Complaint: Abd Pain Narrative Narrative: 32-year-old female with epigastric pain x3 days. She reports difficulty eating and nausea. His gastric bypass no fevers or chills. She does report that she has not a bowel movement in about 2 weeks. She is passing gas. She has not a gallbladder. Patient denies urinary or vaginal complaints. PFSH PFSH Medical History Abdominal pain Diabetes mellitus Easy bruising Flu vaccine need Frequent headaches History of kidney stones Hypertension Kidney stone Right hip pain Seasonal allergies Vision problems Vitamin D deficiency Vitamin deficiency Home Medications multivitamin (Daily Multi-Vitamin tablet) 1 tab PO DAILY 02/07/22 [History Last Taken Unknown] insulin lispro 100 unit/mL subcutaneous pen 10 unit (0.1 mL) subcut TID #15 mL 03/13/22 [Rx Last Taken Unknown] metformin 1,000 mg tablet 1,000 mg PO BID diabetes #60 tabs 03/13/22 [Rx Last Taken Unknown] pen needle, diabetic 32 gauge x 5/32 (BD Ultra-Fine Jeane Pen Needle) #100 ea 03/13/22 [Rx Last Taken Unknown] blood sugar diagnostic (ReliOn Prime Test Strips) #100 ea 03/22/22 [Rx Last Taken Unknown] cholecalciferol (vitamin D3) 50 mcg (2,000 unit) capsule 50 mcg PO DAILY #60 caps 05/21/22 [Rx Last Taken Unknown] metoprolol tartrate 25 mg tablet 25 mg PO BID #60 tabs 07/18/22 [Rx Last Taken Unknown] trazodone 50 mg tablet 50 mg PO QHS PRN sleep #90 tabs 07/18/22 [Rx Last Taken Unknown] ondansetron 4 mg disintegrating tablet 4 mg PO Q8H PRN PRN Nausea #14 tabs 08/23/22 [Rx Last Taken Unknown] Allergy/AdvReac Type Severity Reaction Status Date / Time adhesive tape [paper tape] Allergy Other Verified 08/23/22 16:37 aspirin Allergy Rash Verified 08/23/22 16:37 Penicillins Allergy Rash Verified 08/23/22 16:37 Family History Mother Diabetes CVA (cerebral vascular accident) Anxiety History of blood clots Depression Myocardial infarction Hypertension Thyroid disorder Father Diabetes Alcoholism Anxiety Bleeding disorder History of blood clots Depression Liver disease Grandmother , 62 Diabetes Breast cancer Myocardial infarction Grandfather , 64 Diabetes Arthritis Myocardial infarction Brother Seizures Son Seizures Surgical History History of History of renal stent History of right hip replacement (~07/2018) S/P cholecystectomy S/P dilation and curettage (~09/13/17) S/P gastric bypass s/p right hip surgery Social History Smoking Status: Never smoker alcohol intake: never substance use type: does not use caffeine: No what type of physical activity do you participate in: walking and bicycling frequency: 1-2 times per week seatbelt use: always do you feel safe at home: Yes additional social history: - [employer]- [employer] for [employer] 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 ROS ED Constitutional Constitutional ED: Denies chills or fever(s) ENT ENT ED: Denies rhinorrhea or sore throat Cardiovascular Cardiovascular: Denies chest pain Respiratory/Chest Respiratory/Chest: Denies cough or dyspnea Gastrointestinal Gastrointestinal: Reports abdominal pain, constipation and nausea Genitourinary Genitourinary ED: Denies dysuria or hematuria Musculoskeletal Musculoskeletal: Denies arthralgias Integumentary Denies abscess or Abrasions Neurologic Neurologic: Denies headache(s) Psychiatric Psychiatric: Denies anxiety or depression EXAM Physical Exam Const Vital Signs: 08/23/22 16:35 Temperature 98.1 F Temperature Source Temporal Pulse Rate 98 Respiratory Rate 16 Blood Pressure 138/75 H Blood Pressure Mean 96 Pulse Ox 99 Oxygen Delivery Method Room Air Positive well nourished General Appearance ED: NAD; Negative for pallor HEENT Reports moist mucous membranes normocephalic and atraumatic Eyes PERRL and EOMs intact bilaterally Resp normal respiratory effort Effort and Inspection: Negative for respiratory distress GI Palpation: tender epigastric Back/Spine no CVA tenderness Neuro CN's II-XII intact bilaterally, moves all extremities and no sensory deficits noted Sensorium / Orientation: alert and oriented to person Motor Exam: strength 5/5 throughout Psych mental status grossly normal Skin no wounds General Skin Exam: Negative for jaundice or pallor MDM MDM MDM Narrative Medical decision making narrative: Patient with generalized abdominal pain with most of it being in epigastric and periumbilical region. Differential includes but is not limited to constipation, GERD, gastritis, peptic ulcer disease, appendicitis, diverticulitis, pancreatitis, small bowel obstruction, perforated bowel, viral etiology, food poisoning. CBC to assess white blood cell count, hemoglobin, platelets, differential. CMP to assess liver function, renal function, electrolytes, glucose, anion gap. Urinalysis to assess for UTI. Lipase to assess for pancreatitis. IV line was established. Patient medicated with morphine and Zofran. She is given a liter normal saline. CBC shows no leukocytosis. White blood cell 3.6. Hemoglobin stable at 12.1. Platelets normal 380. Renal function and electrolytes are normal. LFTs within normal limits. Glucose slightly elevated 138 without anion gap. Initially thought urinalysis looks compatible with infection however this was her last urine. Today her urinalysis is normal. She was initially given a dose of Keflex. Discussed the ovarian cyst with her and how this is not where the pain is at. I also recommended some Zofran for home for her. She was taking her omeprazole. I did patent counsel her if she continues to have pain she should follow-up with her general surgeon who did the surgery for her. She is knowledge understanding. She be discharged in addition. When he would like to tell the patient she did not need antibiotics she was already gone. I did call her and counseled her of this. She was amenable. Return precautions discussed again. Impression: 1. Abdominal pain 2. Ovarian cyst 3. Constipation 4. Nausea/vomit Lab Data Attestation: I reviewed the patient's lab results. Labs: Laboratory Results - last 24 hr 08/23/22 08/23/22 08/23/22 17:40 17:40 18:41 WBC 8.6 RBC 4.19 L Hgb 12.1 Hct 35.9 L MCV 85.7 MCH 28.9 MCHC 33.7 RDW Std Deviation 42.7 RDW Coeff of Paty 13.7 Plt Count 380 MPV 9.0 Immature Gran % (Auto) 0.200 Neut % (Auto) 63.8 Lymph % (Auto) 26.5 [place] % (Auto) 8.0 Eos % (Auto) 1.2 Baso % (Auto) 0.3 Absolute Neuts (auto) 5.5 Absolute Lymphs (auto) 2.28 Nucleated RBC % 0 Sodium 139 Potassium 3.5 Chloride 106 Carbon Dioxide 25.0 Anion Gap 8 BUN 13 Creatinine 0.59 Estim Creat Clear Calc 135.58 Est GFR (MDRD) Af Amer 155 Est GFR (MDRD) Non-Af 128 BUN/Creatinine Ratio 22.2 H Glucose 138 H Calcium 9.5 Total Bilirubin 0.70 AST 15 ALT 26 Alkaline Phosphatase 76 Total Protein 7.9 Albumin 4.3 Globulin 3.6 Albumin/Globulin Ratio 1.2 Lipase 250 Urine Color Yellow Urine Clarity Clear Urine pH 8.0 Ur Specific [place] 1.010 Urine Protein Negative Urine Glucose (UA) Normal Urine Ketones Negative Urine Occult Blood Negative Urine Nitrite Negative Urine Bilirubin Negative Urine Urobilinogen Normal Ur Leukocyte Esterase Negative Urine RBC 0 SEEN Urine WBC 0 SEEN Ur Squamous Epith Cells 0-5 SEEN Urine Bacteria 0 SEEN Urine Mucus 0 SEEN Radiography Diagnostic Testing: Clinical Impression(s) from Imaging Studies Abdomen/Pelvis CT 08/23/22 17:23 IMPRESSION: 1. Large left ovarian cyst. 2. Hepatosplenomegaly without mass. 3. Nonvisualization of body and tail of the pancreas. This is similar to previous study. Atrophy versus resection. 4. Gastric bypass surgery without evidence of acute abnormality. 5. No major interval change. Electronically Signed: Claude Gómez DO at 20:15 EDT Reading Location ID and State: [address] [place] [address] Tel [phone], Service support , Discharge Plan Triage Chief Complaint: Abd Pain ED Provider: Francisco Garcia Dx/Rx/DC Orders Instructions: ED Abdominal Pain Unkn Cause Fem, ED Ovarian Cyst Prescriptions: New ondansetron 4 mg tablet,disintegrating 4 mg PO Q8H PRN PRN (Reason: Nausea) Qty: 14 0RF No Action multivitamin [Daily Multi-Vitamin] Tablet 1 tab PO DAILY metoprolol tartrate 25 mg tablet 25 mg PO BID Qty: 60 11RF metformin 1,000 mg tablet 1,000 mg PO BID Qty: 60 6RF insulin lispro 100 unit/mL insulin pen 10 unit SC TID Qty: 15 0RF (DME) pen needle, diabetic [BD Ultra-Fine Jeane Pen Needle] 32 gauge x 5/32 needle See Rx Instructions .ROUTE .MEDSUPPLY Qty: 100 0RF Rx Instructions: As directed (DME) ReliOn Prime Test Strips Strip See Rx Instructions .Route Qty: 100 5RF Rx Instructions: 5x/day cholecalciferol (vitamin D3) 50 mcg (2,000 unit) capsule 50 mcg PO DAILY Qty: 60 0RF trazodone 50 mg tablet 50 mg PO QHS PRN (Reason: sleep) Qty: 90 0RF Primary Care Provider: Kellie Dorantes Referrals: Kellie Dorantes MD [Primary Care Provider] - Disposition Disposition: Home, Self Care Discharge Date/Time: 08/23/22 20:36
[2022-08-23] MEDS: Morphine 4 MG/ML Syringe IV ×2 (17:46→20:26)
[2022-08-23] MEDS: Ondansetron 4 MG/2 ML Vial IV (17:46)
[2022-08-23] MEDS: 0.9% Normal Saline 1,000 ML 1000 ML IV (17:49)
[2022-08-23 18:02] LABS: Absolute Lymphocyte Count 2.28 X10^3/uL (0.83-4.51); Absolute Neutrophil Count 5.5 X10^3/uL (2.0-7.7); Basophil# 0.03 X10^3/uL; Basophil% 0.3 % (0-1); Eosinophils% 1.2 % (0-5); Hematocrit 35.9 % (37-47); Hemoglobin 12.1 g/dL (12.0-15.0); Lymphocyte # 2.28 X10^3/ul (0.83-4.51); Lymphocyte % 26.5 % (19-41); Mean Corp Hgb Conc 33.7 g/dL (32-36); Mean Corpuscular Hgb 28.9 pg (27.0-32.0); Mean Corpuscular Volume 85.7 fL (81-99); Monocyte# 0.69 X10^3/uL; NRBC Flagged by Analyzer 0 % (0-5); Neutrophil # 5.47 X10^3/uL (2.7-7.7); Neutrophil % 63.8 % (47-70); Platelet Count 380 K/mm3 (150-450); RBC Distribution Width CV 13.7 % (11.6-14.6); RBC Distribution Width SD 42.7 fl (35.1-43.9); Red Blood Count 4.19 M/mm3 (4.2-5.4); White Blood Count 8.6 K/mm3 (4.4-11.0)
[2022-08-23 18:10] LABS: ALB/GLOB Ratio 1.2 RATIO (0.9-2.4); AST(SGOT) 15 U/L (15-37); Alanine Aminotransfer ALT/SGPT 26 U/L (13-56); Albumin, Serum 4.3 g/dL (3.2-5.0); Alkaline Phosphatase 76 U/L (45-117); Anion Gap 8 (5-15); BUN 13 mg/dL (7-18); BUN/Creat Ratio 22.2 RATIO (10-20); Calcium,Total 9.5 mg/dL (8.5-10.1); Chloride 106 mmol/L (98-107); Creatinine, Serum 0.59 mg/dL (0.55-1.02); EST Glomerular Filtration Rate 128 mL/min (>60); Est Glom Filt Rate - Afr Amer 155 mL/min (>60); Estimated Creatinine Clearance 135.58 ml/min; Globulin 3.6 g/dL (2.2-4.2); Glucose 138 mg/dL (74-106); Lipase 250 U/L (73-393); Potassium 3.5 mmol/L (3.5-5.1); Protein, Total 7.9 g/dL (6.4-8.2); Sodium Level 139 mmol/L (136-145)
[2022-08-23 18:50] LABS: Bacteria 0 SEEN /hpf (None Seen); Mucous, Urine 0 SEEN /hpf (<or=2+); Red Blood Cells-Urine 0 SEEN /hpf (0-5); White Blood Cells 0 SEEN /hpf (0-5)
[2022-08-23 18:53] LABS: Color, Urine Yellow (Yellow); Glucose, Dipstick Normal (Normal); Ketone-Dipstick Negative (Negative); Leukocyte Esterase-Dipstick Negative /ul (Negative); Nitrite-Dipstick Negative (Negative); Occult Blood-Urine Negative /ul (Negative); Protein-Dipstick Negative (Negative); Urine Bilirubin Dipstick Negative (Negative); Urine Clarity Clear (Clear); Urine Urobilinogen Normal (Normal)
[2022-08-23 19:08] LABS: Squamous Epithelial Cells - UA 0-5 SEEN /hpf (5-10)
[2022-08-23] MEDS: Cephalexin 250 MG Capsule 500 MG PO (20:28)
== END 2022-08-23 20:36 | disposition home or self-care (01) ==
PROVIDERS: Emergency Provider Student in an Organized Health Care Education/Training Program; PCP Internal Medicine; Visit Provider Student in an Organized Health Care Education/Training Program
DX: R10.9 Unspecified abdominal pain (principal); E11.65 Type 2 diabetes mellitus with hyperglycemia; Z79.4 Long term (current) use of insulin; I10 Essential (primary) hypertension; R11.2 Nausea with vomiting, unspecified; K59.00 Constipation, unspecified; N83.202 Unspecified ovarian cyst, left side; Z79.84 Long term (current) use of oral hypoglycemic drugs
CPT/HCPCS: 74177; 80053; 81001; 83690; 85025; 87086; 87088; 96361; 96374; 96375; 96376; 99284; J7030; Q9967; A4216; J2405

== ENCOUNTER 2022-10-15 10:55 | Emergency (ER) | payer MEDICAID, SELFPAY ==
[2022-10-15 10:56] VITALS: BP 138/62; PULSE 72; RESP 18; TEMP 36.6; O2SAT 100; BMI 32.8
--- NOTE | 2022-10-15 11:13 | ED.VIS.GI ---
HPI HPI - GI History of Present Illness Chief Complaint: Nausea/Vomiting Narrative Narrative: 32-year-old female presenting with abdominal pain, nausea, vomiting. She reports no diarrhea or constipation. Patient states that she started having the symptoms on . She was seen at [facility] 2 days ago. She states he had blood work and a CT scan of the abdomen pelvis. She was told she has colitis. They put her on 3 different antibiotics but she does not know what these are. She states that she was given Reglan for nausea. She states not helping and she is having trouble holding up food and fluid. She states her pain was previously in just the right lower quadrant but now its diffusely painful. Denies fever but admits to chills. Patient has had multiple abdominal surgeries including cholecystectomy, gastric bypass, x6. [facility] Medical History Abdominal pain Diabetes mellitus Easy bruising Flu vaccine need Frequent headaches History of kidney stones Hypertension Kidney stone Right hip pain Seasonal allergies Vision problems Vitamin D deficiency Vitamin deficiency Home Medications multivitamin (Daily Multi-Vitamin tablet) 1 tab PO DAILY 02/07/22 [History Last Taken Unknown] insulin lispro 100 unit/mL subcutaneous pen 10 unit (0.1 mL) subcut TID #15 mL 03/13/22 [Rx Last Taken Unknown] metformin 1,000 mg tablet 1,000 mg PO BID diabetes #60 tabs 03/13/22 [Rx Last Taken Unknown] pen needle, diabetic 32 gauge x 5/32 (BD Ultra-Fine Jeane Pen Needle) #100 ea 03/13/22 [Rx Last Taken Unknown] blood sugar diagnostic (ReliOn Prime Test Strips) #100 ea 03/22/22 [Rx Last Taken Unknown] cholecalciferol (vitamin D3) 50 mcg (2,000 unit) capsule 50 mcg PO DAILY #60 caps 05/21/22 [Rx Last Taken Unknown] metoprolol tartrate 25 mg tablet 25 mg PO BID #60 tabs 07/18/22 [Rx Last Taken Unknown] ondansetron 4 mg disintegrating tablet 4 mg PO Q8H PRN PRN Nausea #14 tabs 08/23/22 [Rx Last Taken Unknown] trazodone 50 mg tablet 50 - 100 mg PO QHS PRN sleep #180 tabs 09/28/22 [Rx Last Taken Unknown] ondansetron 4 mg disintegrating tablet 4 mg PO Q8H PRN PRN Nausea #14 tabs 10/15/22 [Rx Last Taken Unknown] Allergy/AdvReac Type Severity Reaction Status Date / Time adhesive tape [paper tape] Allergy Other Verified 10/15/22 10:56 aspirin Allergy Rash Verified 10/15/22 10:56 Penicillins Allergy Rash Verified 10/15/22 10:56 Family History Mother Diabetes CVA (cerebral vascular accident) Anxiety History of blood clots Depression Myocardial infarction Hypertension Thyroid disorder Father Diabetes Alcoholism Anxiety Bleeding disorder History of blood clots Depression Liver disease Grandmother , 62 Diabetes Breast cancer Myocardial infarction Grandfather , 64 Diabetes Arthritis Myocardial infarction Brother Seizures Son Seizures Surgical History History of History of renal stent History of right hip replacement (~07/2018) S/P cholecystectomy S/P dilation and curettage (~09/13/17) S/P gastric bypass s/p right hip surgery Social History Smoking Status: Never smoker alcohol intake: never substance use type: does not use caffeine: No what type of physical activity do you participate in: walking and bicycling frequency: 1-2 times per week seatbelt use: always do you feel safe at home: Yes additional social history: - [employer]- [employer] 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 OJEDA ED Constitutional Constitutional ED: Reports chills; Denies fever(s) ENT ENT ED: Denies rhinorrhea or sore throat Cardiovascular Cardiovascular: Denies chest pain or palpitations Respiratory/Chest Respiratory/Chest: Denies cough, dyspnea or dyspnea on exertion Gastrointestinal Gastrointestinal: Reports abdominal pain, nausea and vomiting; Denies constipation or diarrhea Genitourinary Genitourinary ED: Denies dysuria or hematuria Musculoskeletal Musculoskeletal: Denies arthralgias or back pain Integumentary Denies abscess or Abrasions Neurologic Neurologic: Denies headache(s) or paresthesias Psychiatric Psychiatric: Denies anxiety or depression EXAM Physical Exam Const Vital Signs: 10/15/22 10:56 Temperature 97.9 F Temperature Source Temporal Pulse Rate 72 Respiratory Rate 18 Blood Pressure 138/62 H Blood Pressure Mean 87 Pulse Ox 100 Oxygen Delivery Method Room Air Positive well nourished General Appearance ED: NAD HEENT Reports moist mucous membranes normocephalic and atraumatic Eyes PERRL and EOMs intact bilaterally General Eye ED: Negative for pale conjunctiva or scleral icterus Resp normal respiratory effort Cardio regular rate and regular rhythm GI GI Narrative: Diffusely tender. Palpation: Negative for guarding, rigid, hepatomegaly, splenomegaly, hernia or mass Neuro CN's II-XII intact bilaterally, moves all extremities and no sensory deficits noted Sensorium / Orientation: alert Motor Exam: strength 5/5 throughout Psych mental status grossly normal Skin no wounds MDM MDM MDM Narrative Medical decision making narrative: Patient presenting with diffuse abdominal pain, nausea, vomiting. She states she was told she has an infection in her intestines and was put on 3 antibiotics but she does not know what these are. I attempted to look this up in [employer], however I can only see the CT scan. This does show mild wall thickening of the colon suggesting colitis. I cannot see her lab work. Differential includes but is not limited to colitis, diverticulitis, hyperglycemia, electrolyte abnormalities, dehydration, appendicitis. IV line was established patient given Zofran milligrams IV, normal saline 1 L, morphine 4 mg IV for pain. CBC to assess white blood cell count, hemoglobin, platelets, differential. CMP to assess liver function, renal function, glucose, anion gap. Serum test to assess for . Urinalysis to assess for UTI. BC does not show leukocytosis with a normal white blood cell 7.0. Hemoglobin 10.9. Her last hemoglobin level was 12.1 a couple of months ago. She denies black or bloody stools. Renal function electrolytes appear to be normal. There is no significant elevation in her BUN to suggest GI bleed. Lipase is within normal limits. hCG negative. Urinalysis negative. Patient states she still has some discomfort but her nausea is improved on reevaluation at 2:10 PM. Reviewed patient's OARRS report and the patient has 4 different opiate prescriptions from different providers since August. I counseled her I will not be able to provide her with a narcotic prescription but I can give her some Zofran. I will try to talk to her primary care provider to ensure close follow-up. I will give her a referral to GI. At this point she is given a GI cocktail. Spoke with Dr. Dorantes regarding the patient. She states he can have close follow-up. Patient was given referral to Dr. Guido as well. Return precautions discussed. Impression: 1. Nausea/vomiting 2. Abdominal pain Lab Data Attestation: I reviewed the patient's lab results. Labs: Laboratory Results - last 24 hr 10/15/22 10/15/22 10/15/22 11:45 11:50 11:50 WBC 7.0 RBC 3.86 L Hgb 10.9 L Hct 34.3 L MCV 88.9 MCH 28.2 MCHC 31.8 L RDW Std Deviation 44.0 H RDW Coeff of Paty 13.6 Plt Count 323 MPV 8.9 Immature Gran % (Auto) 0.300 Neut % (Auto) 67.9 Lymph % (Auto) 22.1 [place] % (Auto) 7.7 Eos % (Auto) 1.6 Baso % (Auto) 0.4 Absolute Neuts (auto) 4.7 Absolute Lymphs (auto) 1.54 Nucleated RBC % 0 Sodium 141 Potassium 3.6 Chloride 106 Carbon Dioxide 24.0 Anion Gap 11 BUN 17 Creatinine 0.60 Estim Creat Clear Calc 133.32 Est GFR (MDRD) Af Amer 149 Est GFR (MDRD) Non-Af 123 BUN/Creatinine Ratio 28.1 H Glucose 97 Calcium 8.8 Total Bilirubin 0.70 AST 13 L ALT 20 Alkaline Phosphatase 67 Total Protein 6.8 Albumin 3.6 Globulin 3.2 Albumin/Globulin Ratio 1.1 Lipase 23 Serum , Qual Urine Color Yellow Urine Clarity Clear Urine pH 6.0 Ur Specific [place] 1.020 Urine Protein 15 H Urine Glucose (UA) Normal Urine Ketones 5 H Urine Occult Blood 10 H Urine Nitrite Negative Urine Bilirubin Negative Urine Urobilinogen Normal Ur Leukocyte Esterase 25 H Urine RBC 0-5 SEEN Urine WBC 0-5 SEEN Ur Squamous Epith Cells 0-5 SEEN Urine Bacteria RARE Urine Mucus 0 SEEN 10/15/22 11:50 WBC RBC Hgb Hct MCV MCH MCHC RDW Std Deviation RDW Coeff of Paty Plt Count MPV Immature Gran % (Auto) Neut % (Auto) Lymph % (Auto) [place] % (Auto) Eos % (Auto) Baso % (Auto) Absolute Neuts (auto) Absolute Lymphs (auto) Nucleated RBC % Sodium Potassium Chloride Carbon Dioxide Anion Gap BUN Creatinine Estim Creat Clear Calc Est GFR (MDRD) Af Amer Est GFR (MDRD) Non-Af BUN/Creatinine Ratio Glucose Calcium Total Bilirubin AST ALT Alkaline Phosphatase Total Protein Albumin Globulin Albumin/Globulin Ratio Lipase Serum , Qual NEGATIVE Urine Color Urine Clarity Urine pH Ur Specific [place] Urine Protein Urine Glucose (UA) Urine Ketones Urine Occult Blood Urine Nitrite Urine Bilirubin Urine Urobilinogen Ur Leukocyte Esterase Urine RBC Urine WBC Ur Squamous Epith Cells Urine Bacteria Urine Mucus Discharge Plan Triage Chief Complaint: Nausea/Vomiting ED Provider: Francisco Garcia Dx/Rx/DC Orders Instructions: ED Abdominal Pain Unkn Cause Fem, ED Vomiting (Adult) Prescriptions: New ondansetron 4 mg tablet,disintegrating 4 mg PO Q8H PRN PRN (Reason: Nausea) Qty: 14 0RF No Action multivitamin [Daily Multi-Vitamin] Tablet 1 tab PO DAILY metoprolol tartrate 25 mg tablet 25 mg PO BID Qty: 60 11RF ondansetron 4 mg tablet,disintegrating 4 mg PO Q8H PRN PRN (Reason: Nausea) Qty: 14 0RF metformin 1,000 mg tablet 1,000 mg PO BID Qty: 60 6RF insulin lispro 100 unit/mL insulin pen 10 unit SC TID Qty: 15 0RF (DME) pen needle, diabetic [BD Ultra-Fine Jeane Pen Needle] 32 gauge x 5/32 needle See Rx Instructions .ROUTE .MEDSUPPLY Qty: 100 0RF Rx Instructions: As directed (DME) ReliOn Prime Test Strips Strip See Rx Instructions .Route Qty: 100 5RF Rx Instructions: 5x/day cholecalciferol (vitamin D3) 50 mcg (2,000 unit) capsule 50 mcg PO DAILY Qty: 60 0RF trazodone 50 mg tablet 50 - 100 mg PO QHS PRN (Reason: sleep) Qty: 180 0RF Stand Alone Forms: ED Work / School Excuse Primary Care Provider: Kellie Dorantes Referrals: Kellie Dorantes MD [Primary Care Provider] - Melo Guido DO [Med Staff - Active Staff] - 3-5 Days Disposition Disposition: Home, Self Care
[2022-10-15] MEDS: 0.9% Normal Saline 1,000 ML 1000 ML IV (11:43)
[2022-10-15] MEDS: Morphine 4 MG/ML Syringe IV (11:44)
[2022-10-15] MEDS: Ondansetron 4 MG/2 ML Vial IV (11:45)
[2022-10-15 12:07] LABS: Mucous, Urine 0 SEEN /hpf (<or=2+)
[2022-10-15 12:10] LABS: Color, Urine Yellow (Yellow); Glucose, Dipstick Normal (Normal); Ketone-Dipstick 5 mg/dl (Negative); Leukocyte Esterase-Dipstick 25 /ul (Negative); Nitrite-Dipstick Negative (Negative); Occult Blood-Urine 10 /ul (Negative); Protein-Dipstick 15 mg/dl (Negative); Urine Bilirubin Dipstick Negative (Negative); Urine Clarity Clear (Clear); Urine Urobilinogen Normal (Normal)
[2022-10-15 12:10] LABS: Absolute Lymphocyte Count 1.54 X10^3/uL (0.83-4.51); Absolute Neutrophil Count 4.7 X10^3/uL (2.0-7.7); Basophil# 0.03 X10^3/uL; Basophil% 0.4 % (0-1); Eosinophil# 0.11 X10^3/uL; Eosinophils% 1.6 % (0-5); Hematocrit 34.3 % (37-47); Hemoglobin 10.9 g/dL (12.0-15.0); Lymphocyte # 1.54 X10^3/ul (0.83-4.51); Lymphocyte % 22.1 % (19-41); Mean Corp Hgb Conc 31.8 g/dL (32-36); Mean Corpuscular Hgb 28.2 pg (27.0-32.0); Mean Corpuscular Volume 88.9 fL (81-99); Mean Platelet Vol. 8.9 fl (6.2-12.0); Monocyte# 0.54 X10^3/uL; Monocyte% 7.7 % (0-10); NRBC Flagged by Analyzer 0 % (0-5); Neutrophil # 4.73 X10^3/uL (2.7-7.7); Neutrophil % 67.9 % (47-70); Platelet Count 323 K/mm3 (150-450); RBC Distribution Width CV 13.6 % (11.6-14.6); Red Blood Count 3.86 M/mm3 (4.2-5.4)
[2022-10-15 12:15] LABS: Red Blood Cells-Urine 0-5 SEEN /hpf (0-5); Squamous Epithelial Cells - UA 0-5 SEEN /hpf (5-10); White Blood Cells 0-5 SEEN /hpf (0-5)
[2022-10-15 12:16] LABS: Bacteria RARE /hpf (None Seen)
[2022-10-15 12:27] LABS: ALB/GLOB Ratio 1.1 RATIO (0.9-2.4); AST(SGOT) 13 U/L (15-37); Alanine Aminotransfer ALT/SGPT 20 U/L (13-56); Albumin, Serum 3.6 g/dL (3.2-5.0); Alkaline Phosphatase 67 U/L (45-117); Anion Gap 11 (5-15); BUN 17 mg/dL (7-18); BUN/Creat Ratio 28.1 RATIO (10-20); Calcium,Total 8.8 mg/dL (8.5-10.1); Chloride 106 mmol/L (98-107); EST Glomerular Filtration Rate 123 mL/min (>60); Est Glom Filt Rate - Afr Amer 149 mL/min (>60); Estimated Creatinine Clearance 133.32 ml/min; Globulin 3.2 g/dL (2.2-4.2); Glucose 97 mg/dL (74-106); Lipase 23 U/L (13-75); Potassium 3.6 mmol/L (3.5-5.1); Protein, Total 6.8 g/dL (6.4-8.2); Sodium Level 141 mmol/L (136-145)
[2022-10-15 12:51] LABS: Internal QC Validated? YES +Cl - CLEAR BKGD
[2022-10-15 12:52] LABS: Pregnancy, Serum, hCG Quali. NEGATIVE Negative
[2022-10-15] MEDS: Mag Hydrox/Al Hydrox/Simeth 30 ML UDC PO (14:29)
[2022-10-15 14:51] VITALS: BP 112/68; PULSE 75; RESP 16; O2SAT 98
== END 2022-10-15 14:52 | disposition home or self-care (01) ==
PROVIDERS: Emergency Provider Student in an Organized Health Care Education/Training Program; PCP Internal Medicine; Visit Provider Student in an Organized Health Care Education/Training Program
DX: R11.2 Nausea with vomiting, unspecified (principal); E11.9 Type 2 diabetes mellitus without complications; I10 Essential (primary) hypertension; Z79.84 Long term (current) use of oral hypoglycemic drugs; R10.9 Unspecified abdominal pain
CPT/HCPCS: 80053; 81001; 83690; 84703; 85025; 96361; 96374; 96375; 99285; J7030; A4216; J2405

== ENCOUNTER → 2023-01-23 | Outpatient (CLI) | payer MEDICAID, SELFPAY ==
[2023-01-23 12:23] LABS: Absolute Lymphocyte Count 1.75 X10^3/uL (0.83-4.51); Absolute Neutrophil Count 3.6 X10^3/uL (2.0-7.7); Basophil# 0.03 X10^3/uL; Basophil% 0.5 % (0-1); Eosinophil# 0.08 X10^3/uL; Eosinophils% 1.4 % (0-5); Hematocrit 34.4 % (37-47); Hemoglobin 11.3 g/dL (12.0-15.0); Lymphocyte # 1.75 X10^3/ul (0.83-4.51); Lymphocyte % 29.6 % (19-41); Mean Corp Hgb Conc 32.8 g/dL (32-36); Mean Corpuscular Hgb 28.2 pg (27.0-32.0); Mean Corpuscular Volume 85.8 fL (81-99); Mean Platelet Vol. 9.1 fl (6.2-12.0); Monocyte# 0.42 X10^3/uL; Monocyte% 7.1 % (0-10); NRBC Flagged by Analyzer 0 % (0-5); Neutrophil # 3.62 X10^3/uL (2.7-7.7); Neutrophil % 61.2 % (47-70); Platelet Count 392 K/mm3 (150-450); RBC Distribution Width CV 13.7 % (11.6-14.6); RBC Distribution Width SD 42.8 fl (35.1-43.9); RET-HE 27.4 pg (30-35); Red Blood Count 4.01 M/mm3 (4.2-5.4); Reticulocyte Count 1.58 % (0.5-1.5); White Blood Count 5.9 K/mm3 (4.4-11.0)
[2023-01-23 12:27] LABS: Erythrocyte Sedimentation Rate 9 mm/hr (0-30)
[2023-01-23 12:55] LABS: Vitamin B12 335 pg/mL (211-911); Vitamin D,25 Hydroxy 29.8 ng/mL
[2023-01-23 12:56] LABS: Prothrombin Time (Protime)PT. 13.4 SECONDS (11.7-14.9)
[2023-01-23 13:07] LABS: CRP < 2.90 mg/L (0.0-3.0); Ferritin 4 ng/mL (8-252); Free T3 2.7 pg/mL (2.18-3.98); Iron 29 ug/dL (50-170); Iron Binding Capacity,Total 287 ug/dL (250-450); LDH 145 U/L (84-246); Magnesium 1.9 mg/dL (1.6-2.6); PERCENT IRON SATURATION 10.1 % (15.0-55.0); Phosphorus 3.9 mg/dL (2.5-4.9); T4 Free Direct 1.16 ng/dL (0.76-1.46); Thyroid Stim Hormone (TSH) 0.53 uIU/mL (0.358-3.74)
[2023-01-25 12:09] LABS: Anti-Centromere B Ab <0.2 AI (0.0-0.9); Anti-Chromatin <0.2 AI (0.0-0.9); Anti-Jo <0.2 AI (0.0-0.9); Anti-Mitochondrial AB <20.0 Units (0.0-20.0); Anti-Scleroderma-70 AB <0.2 AI (0.0-0.9); Anti-dsDNA Ab 3 IU/mL (0-9); RNP Ab <0.2 AI (0.0-0.9); SJOGREN'S Anti-SS-A test < 0.2 AI (0.0-0.9); SJOGREN'S Anti-SS-B test < 0.2 AI (0.0-0.9); Smith Ab <0.2 AI (0.0-0.9); Vitamin D 1,25-Dihydroxy 54.6 pg/mL (24.8-81.5)
[2023-01-29 17:07] LABS: Albumin 4.2 g/dL (2.9-4.4); Alpha-1-Globulins 0.3 g/dL (0.0-0.4); Alpha-2-Globulins 0.9 g/dL (0.4-1.0); Angiotensin Convert Enzyme 25 U/L (14-82); Anti-Smooth Muscle ABS 5 Units (0-19); Cytoplasmic Ab (C-ANCA) <1:20 titer (Neg:<1:20); Endomysial Antibody IgA Negative (Negative); HEPATITIS B SURFACE AG Negative (Negative); Haptoglobin 199 mg/dL (33-278); Hep C Antibodies Non Reactive (Non Reactive); Hepatitis A IgM Antibody Negative (Negative); Hepatitis B Core AB IgM Negative (Negative); IgG, Quant 999 mg/dL (586-1602); Immunoglobulin A 134 mg/dL (87-352); Immunoglobulin E 30 IU/mL (6-495); Immunoglobulin G, Subclass 1 547 mg/dL (248-810); Immunoglobulin G, Subclass 2 224 mg/dL (130-555); Immunoglobulin G, Subclass 3 58 mg/dL (15-102); Immunoglobulin G, Subclass 4 16 mg/dL (2-96); Immunoglobulin M 120 mg/dL (26-217); PROEL- TOTAL PROTEIN 7.4 g/dL (6.0-8.5); Perinuclear Ab (P-ANCA) <1:20 titer (Neg:<1:20); Vitamin A, Retinol 48.8 ug/dL (18.9-57.3); Vitamin B1, Thiamine 111.3 nmol/L (66.5-200.0); t-Transglutaminase IgA <2 U/mL (0-3)
== END | disposition home or self-care (01) ==
PROVIDERS: PCP Internal Medicine; Referring Provider Internal Medicine Gastroenterology; Visit Provider Internal Medicine Gastroenterology
DX: K59.09 Other constipation (principal); Z83.79 Family history of other diseases of the digestive system
CPT/HCPCS: 36415; 80074; 82164; 82306; 82607; 82652; 82728; 82746; 82784; 82785; 82787; 83010; 83516; 83540; 83550; 83615; 83735; 84100; 84165; 84425; 84439; 84443; 84481; 84590; 85025; 85045; 85610; 85652; 86140; 86225; 86235; 86255; 86256; 86334

== ENCOUNTER 2023-03-06 06:42 | Day surgery (SDC) | payer MEDICAID, SELFPAY ==
[2023-03-06] VITALS (7 sets, daily range): BP systolic 94–110; BP diastolic 50–72; PULSE 72–107; RESP 16–18; TEMP 36.1–36.7; O2SAT 97–100; BMI 31.4
[2023-03-06] MEDS: Lactated Ringers 1,000 ML 15 ML IV (07:15)
--- NOTE | 2023-03-06 08:00 | IMM_PTH ---
PATIENT: SYLVESTER YEN LOC: EN U#:[id number] AGE/SX: 32/F ROOM: RE03/06/[address]: Dr. eMlo Guido DO : 1990 BED: DIS: 03/06/2023 SPEC #: [id number] RECD: 03/06/23 13:29 STATUS: YAZAN REKarlo #: [id number] RICH: 03/06/23 08:[address]: Melo Guido DEPT: IMMUNOHISTOCHEMISTRY RECD BY: Tnaya Olmedo ENTERED: 03/06/23 13:30 SP TYPE: IMMUNO OTHR DR: Dr. Kellie Dorantes MD Tissues: Gastric mucous membrane Procedures: H Pylori (initial) PHYSICIAN & INSTITUTION [place] [id number] SPECIMEN INFORMATION: Tissue Source: Gastric jejunal anastomosis ulcer Clinical Info: Chronic constipation, family history of liver disease Specimen Number: [id number] CPT code: 16330 METHODOLOGY: Deparaffinized sections of prefer/formalin-fixed tissue or PAP/DQ stained slides are incubated with monoclonal/polyclonal antibodies/oligonucleotide probes. Localization is made via biotin free immunoperoxidase method. Appropriate controls are performed and reacted as expected. Results on target cell population are indicated in the following table: RESULTS: ANTIBODY / CLONE RESULT H Pylori (polyclonal) negative These tests were developed and their performance characteristics determined by [facility]. They may not have been cleared or approved by the U.S. Food and Drug Administration. The FDA has determined that such clearance or approval is not necessary. The above immunohistochemical/dualISH markers are ordered and reviewed by the Pathologist. INTERPRETATION: Gastric jejunal anastomosis ulcer, biopsy: Negative for Helicobacter pylori organisms. AM:malika 03/07/2023
--- NOTE | 2023-03-06 08:00 | EGD_PTH ---
PATIENT: SYLVESTER YEN LOC: EN U#:[id number] AGE/SX: 32/F ROOM: RE03/06/[address]: Dr. Melo Guido DO : 1990 BED: DIS: 03/06/2023 SPEC #: [id number] RECD: 03/06/23 10:41 STATUS: YAZAN REKarlo #: [id number] RICH: 03/06/23 08:[address]: Melo Guido DEPT: SURGICAL PATHOLOGY RECD BY: Srinivas Prieto ENTERED: 03/06/23 12:38 SP TYPE: EGD BIOPSY PAPO DR: Dr. Kellie Dorantes MD Tissues: Gastric mucous membrane Procedures: Surgery Specimen Level IV HEADER OPERATION: EGD with biopsy and Argon plasma coagulation PRE-OP DIAGNOSIS: Chronic constipation, family history of liver disease TISSUE SUBMITTED: Gastric jejunal anastomosis ulcer biopsy MICROSCOPIC DIAGNOSIS Gastric jejunal anastomotic ulcer, biopsy: Mild chronic inflammation and reactive epithelial change. See comment. AM:malika 03/07/2023 COMMENT The results of immunohistochemistry for Helicobacter pylori will be reported separately ([id number]). MICROSCOPIC DESCRIPTION Slides are reviewed. GROSS DESCRIPTION Received in fixative is one container labeled with the patient's name and designated gastric jejunal anastomosis ulcer biopsy. The specimen consists of multiple irregular fragments of light hdz soft tissue that in aggregate measure 1.0 x 0.4 x 0.1 cm. The specimen is totally submitted in one cassette. / SJ:malika 03/06/2023 TC:3 CPT: 58691
--- NOTE | 2023-03-06 08:10 | HP.PCM_ITS ---
History and Physical Date of Admission: 03/06/23 32 F who presents to the office today for [facility] ED 5.. Mirza reports being started on [address] abd/pel s/p cholecystectomy with associated ductal dilation; renal calculi; right hip arthroplasty with metallic artifact; s/p gastric bypass; very mild wall thickening of colon, ?mild colitis; degenerative changes of lumbar/sacral spine. [facility] ED 5. with N/V and abdominal pain for several days; denies loose stools/constipation. Reports OSH ED workup but is unable to recall ATB therapy. Multiple abdominal surgeries: cholecystectomy, gastric bypass and x6. Pain addressed and IVF provided; notes 4 different opiate prescriptions since August and inability to write for home opiate; discharged with Zofran. Recommended close f/u with PCP Dr. Dorantes which Mirza did not pursue. [facility] ED 7. with N/V and abdominal pain. IV Zofran, IVF started. Biochemical workup and physical exam without concern. CT offered and declined by patient. N/V resolved and she discharged home. ? Biochemical CBC, CMP, LFT without acute concern. *BGI established 01.23.23 s/p gastric bypass . Constipation with one BM approximately every two weeks with bloating, gas, abdominal and lower back pain, N/V; MiraLAX, stool softeners have been ineffective. Diet is bland and typically eats chicken and cottage cheese for the last week; prior to this she was eating a lot of vegetables and salads. ROS Const Constitutional: Positive for sleep problems and abnormal sleep pattern; No body ache, chills, excessive sweating, fatigue, fever(s), frequent falls, headache(s), snoring, weakness, weight change or change in appetite Eyes Eyes: No blurry vision, change in vision, eye pain or Light sensitivity ENT ENT: No abnormal hearing, ear or mastoid pain, tinnitus, nasal congestion, headache(s), neck pain or sore throat Resp Respiratory: No cough, shortness of breath, snoring or wheezing Cardio Cardiology: No chest pain at rest, chest pain with exertion, excessive sweating, shortness of breath, dyspnea on exertion, lightheadedness, orthopnea or palpitations Gastro GI: No abdominal pain, change in bowel habits, constipation, cramping, diarrhea, nausea/dyspepsia or vomiting Genitourinary-Female: No burning urination, painful urination, urinary incontinence, urinary frequency or abnormal vaginal bleeding Musc Musculoskeletal: No abnormal gait, joint pain, back pain, limited range of motion, neck pain, numbness or tingling Skin Skin: No dry skin, redness, lesions, itchy eyes, rash or wounds Neuro Neurology: No abnormal gait, abnormal hearing, abnormal speech, dizziness, weak ness, frequent falls, headache(s), memory loss, numbness or tingling Psych Psychiatric: Positive for abnormal sleep pattern, No lack of enjoyment, No anxiety, No change in appetite, No depression, No difficulty concentrating, No hopelessness, No irritability, No memory loss, No Thoughts of harming yourself/Others and No suicidal ideation Endo Endocrine: No cold intolerance, excessive sweating, fatigue, flushing, heat intolerance, increased thirst/drinking, increased hunger or weight change Aller/Imm Allergy/Immunologic: No itchy eyes, seasonal allergy symptoms, hives or wheezing Be/Lymp Hematologic/Lymphatic: No easy bleeding, easy bruising or enlarged lymph nodes Exam Const General: cooperative and comfortable Nutritional Appearance: overweight Orientation: alert, awake and oriented x3 Limitations: mental status not altered [facility] Head: normal to inspection, normocephalic and atraumatic Ears: hearing grossly normal bilaterally Eyes General: appearance normal, both eyes and all related structures Neck Neck: normal visual inspection Resp Effort & Inspection: normal respiratory effort and able to speak in complete sentences Auscultation: Bilateral: Clear to Auscultation Cardio Rate: regular rate Rhythm: regular rhythm Heart Sounds: S1 normal and S2 normal Skin General: no rashes or lesions noted Trauma: no lacerations or abrasions Wounds: no wounds Neuro General: patient alert, patient awake, patient oriented x3 and moves all extremities Cognition: normal cognition Speech: speech normal Gait: normal gait Motor: muscle tone normal throughout Extrem General: normal to inspection, full ROM and no clubbing, cyanosis or edema Psych Appearance: grossly normal Mental Status: mental status grossly normal Mood: congruent mood Affect: normal affect Speech and Movement: speech and movement normal Attitude: cooperative Thought Process: normal Thought Content: normal Quality Reporting Tobacco Screening ([facility] 138) Smoking Status: Never smoker Assessment and Plan Assessment and Plan (1) Chronic constipation: Status: Chronic (2) Family history of liver disease: Status: Acute Plan: 32-year-old with past medical history of morbid obesity complicated by obstructive sleep apnea, insulin-dependent diabetes mellitus, pickwickian syndrome who underwent gastric bypass and lost almost 200 pounds. Her postop course was complicated by leaking at the anastomosis status post surgery revision and volvulus formation with adhesion formation status post further gastropexy with temporary jejunostomy tube placement and TPN. Since her last surgery she says that she has become more constipated and has been having some intermittent abdominal pain that she deals with on a daily basis. 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 She has a history of B12 deficiency, vitamin D deficiency, thiamine deficiency and magnesium deficiency secondary to gastric bypass. She also has a family history of liver disease in her father but she does not know what type of liver disease he had that resulted in cirrhosis -Abdominal pain-diagnosis does include anastomotic ulcer either at the gastrojejunal or jejunojejunal anastomosis. Less likely ulcer at the duodenal jejunal anastomosis. She should undergo an upper endoscopy to evaluate upper GI tract. At that time she will be tested for H. pylori. Recommend PPI therapy 20 mg p.o. twice daily. She would do well with misoprostoll but she will have to be on control due to her age. Misoprostol can help her as it can induce a bowel movement and gastric bypass patients.. -Chronic constipation. Differential diagnosis does include adhesive disease secondary to 5 C-sections and history of multiple abdominal surgeries related to gastric bypass including cholecystectomy. We will treat her with azithromycin 500 mg p.o. daily x7 days, metoclopramide 5 mg p.o. 3 times daily x1 month, Amitiza 24 mcg p.o. twice daily and lactulose 20 cc p.o. twice daily. -History of vitamin deficiencies secondary to gastric bypass-we will get blood test for vitamin D, B12, folic acid, B1, magnesium, manganese, selenium and copper Orders: Orders Magnesium Today K59.09 - Other constipation Iron+Iron Binding Capacity Today K59.09 - Other constipation Ferritin Today K59.09 - Other constipation Retic Panel Count Today K59.09 - Other constipation Vitamin B12 Today K59.09 - Other constipation Phosphorus Today K59.09 - Other constipation Vitamin D 1,25-Dihydroxy Today K59.09 - Other constipation Vitamin D,25 Hydroxy Today K59.09 - Other constipation Vitamin B1, Thiamine Today K59.09 - Other constipation Vitamin A, Retinol Today K59.09 - Other constipation CBC W/Diff, Automated Today K59.09 - Other constipation TASHA + Protein Elect, Serum Today K59.09 - Other constipation LDH Today K59.09 - Other constipation Haptoglobin Today K59.09 - Other constipation ANCA Today K59.09 - Other constipation Immunoglobulin E Today K59.09 - Other constipation CRP Today K59.09 - Other constipation Celiac Disease Profile Today K59.09 - Other constipation Erythrocyte Sed Rate Today K59.09 - Other constipation VINITA Comprehensive Panel Today K59.09 - Other constipation Thyroid Stim Hormone (TSH) Today K59.09 - Other constipation T4 Free Direct Today K59.09 - Other constipation Free T3 Today K59.09 - Other constipation Folates, (Folic Acid) Today K59.09 - Other constipation Anti-Mitochondrial AB Today K59.09 - Other constipation Angiotensin Convert Enzyme Today K59.09 - Other constipation Anti-Smooth Muscle ABS Today K59.09 - Other constipation Hepatitis Panel Acute Today K59.09 - Other constipation IgG Subclasses Today K59.09 - Other constipation Prothrombin Time w/INR Today K59.09 - Other constipation Miscellaneous Lab Procedure Today K59.09 - Other constipation, Z83.79 - Family history of other diseases of the digestive system I have examined the patient and the H&P has been reviewed. There are no clinical changes since date of exam.
--- NOTE | 2023-03-06 08:43 | OP.CCLET_ITS ---
03/06/2023 Kellie Dorantes MD [address] [place] [address] [place] [address] Re : Upper GI endoscopy procedure for Mirza Daigle Dear Dr. Dorantes This procedure was performed on Monday, March 06, 2023. My impressions and recommendations are as follows: Impressions : - LA Grade A reflux esophagitis with no bleeding. - Flakita-en-Y gastrojejunostomy with gastrojejunal anastomosis characterized by ulceration and severe stenosis. Biopsied. Dilated. Treated with argon plasma coagulation (APC). - Normal examined jejunum. Recommendations : - Discharge patient to home. - Resume previous diet today. - Use Protonix (pantoprazole) 40 mg PO BID for 12 weeks. - Use misoprostol 200 micrograms PO QID for 12 weeks. - Possible endostenting for healing - Continue present medications. - No aspirin, ibuprofen, naproxen, or other non-steroidal anti-inflammatory drugs for 12 weeks. My findings are described in the full procedure note, which is enclosed. If I can be of further assistance, please feel free to contact me at . Sincerely, Melo Guido, 03/06/2023 8:43:11 AM This report has been signed electronically.
--- NOTE | 2023-03-06 08:43 | OP.EGD_ITS ---
Patient Name: Mirza Daigle Procedure Date: 03/06/2023 8:11 AM Date of : 1990 Age: 32 Procedure: Upper GI endoscopy Indications: Epigastric abdominal pain Providers: Melo Guido DO Referring MD: Kellie Dorantes MD Medicines: Monitored Anesthesia Care Patient Profile: This is a 32 year old female. Refer to note in patient chart for documentation of history and physical. Patient has symptoms of acute epigastric abdominal pain. She is status post laparoscopic gastric bypass. Complications: No immediate complications. Procedure: Pre-Anesthesia Assessment: - Prior to the procedure, a History and Physical was performed, and patient medications and allergies were reviewed. The patient is competent. The risks and benefits of the procedure and the sedation options and risks were discussed with the patient. All questions were answered and informed consent was obtained. Patient identification and proposed procedure were verified by the physician in the pre-procedure area. Mental Status Examination: alert and oriented. Airway Examination: normal oropharyngeal airway and neck mobility. Respiratory Examination: clear to auscultation. CV Examination: normal. Prophylactic Antibiotics: The patient does not require prophylactic antibiotics. Prior Anticoagulants: The patient has taken no anticoagulant or antiplatelet agents. After reviewing the risks and benefits, the patient was deemed in satisfactory condition to undergo the procedure. The anesthesia plan was to use monitored anesthesia care (MAC). Immediately prior to administration of medications, the patient was re-assessed for adequacy to receive sedatives. The heart rate, respiratory rate, oxygen saturations, blood pressure, adequacy of pulmonary ventilation, and response to care were monitored throughout the procedure. The physical status of the patient was re-assessed after the procedure. After obtaining informed consent, the endoscope was passed under direct vision. Throughout the procedure, the patient's blood pressure, pulse, and oxygen saturations were monitored continuously. The gastroscope was introduced through the mouth, and advanced to the jejunum. The upper GI endoscopy was accomplished without difficulty. The patient tolerated the procedure well. Scope In: 8:20:34 AM Scope Out: 8:30:15 AM Total Procedure Duration Time 0 hours 9 minutes 41 seconds Findings: LA Grade A (one or more mucosal breaks less than 5 mm, not extending between tops of 2 mucosal folds) esophagitis with no bleeding was found 36 to 38 cm from the incisors. Evidence of a Flakita-en-Y gastrojejunostomy was found. The gastrojejunal anastomosis was characterized by severe stenosis and ulceration. This was traversed after dilation. The zukgn-bd-bhddqae limb was characterized by severe stenosis and ulceration. The jejunojejunal anastomosis was characterized by healthy appearing mucosa. The mjtjonpx-sg-hmezovz limb was not examined as it could not be found. The excluded stomach was not examined as it could not be found. Biopsies were taken with a cold forceps for histology. Verification of patient identification for the specimen was done. Estimated blood loss was minimal. A TTS dilator was passed through the scope. Dilation with a 15 mm anastomotic balloon dilator was performed. The dilation site was examined and showed moderate mucosal disruption. Coagulation for hemostasis using argon plasma at 0.5 liters/minute and 20 newell was successful. Estimated blood loss was minimal. The examined jejunum was normal. Impression: - LA Grade A reflux esophagitis with no bleeding. - Flakita-en-Y gastrojejunostomy with gastrojejunal anastomosis characterized by ulceration and severe stenosis. Biopsied. Dilated. Treated with argon plasma coagulation (APC). - Normal examined jejunum. Recommendation: - Discharge patient to home. - Resume previous diet today. - Use Protonix (pantoprazole) 40 mg PO BID for 12 weeks. - Use misoprostol 200 micrograms PO QID for 12 weeks. - Possible endostenting for healing - Continue present medications. - No aspirin, ibuprofen, naproxen, or other non-steroidal anti-inflammatory drugs for 12 weeks. Procedure Code(s): --- Professional --- 52168, 59, Esophagogastroduodenoscopy, flexible, transoral; with control of bleeding, any method 96161, Esophagogastroduodenoscopy, flexible, transoral; with dilation of gastric/duodenal stricture(s) (eg, balloon, bougie) 63595, 59,51, Esophagogastroduodenoscopy, flexible, transoral; with biopsy, single or multiple CPT copyright 2021 [employer]. All rights reserved. The codes documented in this report are preliminary and upon manager material review may be revised to meet current compliance requirements. Melo Guido DO 03/06/2023 8:43:11 AM This report has been signed electronically. Number of Addenda: 0 Note Initiated On: 03/06/2023 8:11 AM
[2023-03-06 08:59] LABS: Bedside Glucose 184 mg/dL (74-106)
== END 2023-03-06 09:19 | disposition home or self-care (01) ==
LOC: EN 06:43 → AC 06:45
PROVIDERS: PCP Internal Medicine; Referring Provider Internal Medicine; Visit Provider Internal Medicine Gastroenterology
PROC: 0DJ08ZZ Inspection of Upper Intestinal Tract, Via Natural or Artificial Opening Endoscopic (ICD-10-PCS; CPT 43235; principal; 2023-03-06 07:55)
DX: K28.4 Chronic or unspecified gastrojejunal ulcer with hemorrhage (principal); E11.9 Type 2 diabetes mellitus without complications; Z79.4 Long term (current) use of insulin; K59.09 Other constipation; K21.00 Gastro-esophageal reflux disease with esophagitis, without bleeding; Z90.49 Acquired absence of other specified parts of digestive tract; Z96.641 Presence of right artificial hip joint; Z83.79 Family history of other diseases of the digestive system; R10.9 Unspecified abdominal pain; Z98.84 Bariatric surgery status
CPT/HCPCS: 43239; 43249; 43255; 82962; 88305; 88342; J7120; J2405

== ENCOUNTER 2025-03-21 11:13 | Emergency (ER) | payer MEDICAID, SELFPAY ==
[2025-03-21 11:13] VITALS: BP 123/77; PULSE 88; RESP 16; TEMP 36.8; O2SAT 97; BMI 28.0
== END 2025-03-21 13:48 | disposition left against medical advice (07) ==
LOC: ED 13:48
PROVIDERS: PCP Internal Medicine
DX: Z00.00 Encounter for general adult medical examination without abnormal findings (principal)